=== PATIENT | female | born 1945 | race Caucasian/White ===

== ENCOUNTER → 2016-08-08 | Outpatient (CLI) | payer MEDICARE, OTHER ==
--- NOTE | 2016-08-09 07:57 | MM ---
Reason for exam: screening (asymptomatic). Last mammogram was performed 1 year ago. History: Patient is postmenopausal. Family history of premenopausal breast cancer in sister. Physical Findings: A clinical breast exam by your physician is recommended on an annual basis and results should be correlated with mammographic findings. MG 3D Screening Mammo W/Cad Bilateral CC and MLO view(s) were taken. Prior study comparison: July 26, 2015, bilateral MG 3d screening mammo w/cad. July 19, 2014, bilateral MG screening mammo w CAD. There are scattered fibroglandular densities. No significant changes when compared with prior studies. ASSESSMENT: Benign, BI-RAD 2 RECOMMENDATION: Routine screening mammogram of both breasts in 1 year.
== END | disposition home or self-care (01) ==
LOC: RADMAMWWP 08:21
PROVIDERS: ATTEND Family Medicine
DX: Z12.31 Encounter for screening mammogram for malignant neoplasm of breast (principal)
CPT/HCPCS: 77063; G0202

== ENCOUNTER → 2017-09-16 | Outpatient (CLI) | payer MEDICARE, OTHER ==
--- NOTE | 2017-09-17 14:53 | MM ---
Reason for exam: screening (asymptomatic). Last mammogram was performed 1 year and 1 month ago. History: Patient is postmenopausal. Family history of premenopausal breast cancer in sister. Physical Findings: A clinical breast exam by your physician is recommended on an annual basis and results should be correlated with mammographic findings. MG 3D Screening Mammo W/Cad Bilateral CC and MLO view(s) were taken. Prior study comparison: August 08, 2016, bilateral MG 3d screening mammo w/cad. July 26, 2015, bilateral MG 3d screening mammo w/cad. The breast tissue is heterogeneously dense. This may lower the sensitivity of mammography. There is chronic nodularity in the left breast. No significant changes when compared with prior studies. ASSESSMENT: Negative, BI-RAD 1 RECOMMENDATION: Routine screening mammogram of both breasts in 1 year.
== END | disposition home or self-care (01) ==
LOC: RADMAMWWP 09:30
PROVIDERS: ATTEND Family Medicine
DX: Z12.31 Encounter for screening mammogram for malignant neoplasm of breast (principal)
CPT/HCPCS: 77063; 77067

== ENCOUNTER → 2018-10-22 | Outpatient (CLI) | payer MEDICARE, OTHER ==
--- NOTE | 2018-10-23 08:45 | MM ---
Reason for exam: screening (asymptomatic). Last mammogram was performed 1 year and 1 month ago. History: Patient is postmenopausal. Family history of premenopausal breast cancer in sister. Physical Findings: A clinical breast exam by your physician is recommended on an annual basis and results should be correlated with mammographic findings. MG 3D Screening Mammo W/Cad Bilateral CC, MLO, and XCCL view(s) were taken. Prior study comparison: September 16, 2017, bilateral MG 3d screening mammo w/cad. August 08, 2016, bilateral MG 3d screening mammo w/cad. The breast tissue is heterogeneously dense. This may lower the sensitivity of mammography. There is no discrete abnormality. No significant changes when compared with prior studies. ASSESSMENT: Negative, BI-RAD 1 RECOMMENDATION: Routine screening mammogram of both breasts in 1 year.
== END | disposition home or self-care (01) ==
LOC: RADMAMWWP 11:51
PROVIDERS: ATTEND Family Medicine
DX: Z12.31 Encounter for screening mammogram for malignant neoplasm of breast (principal)
CPT/HCPCS: 77063; 77067

== ENCOUNTER → 2019-05-31 | Outpatient (CLI) | payer MEDICARE, OTHER ==
--- NOTE | 2019-05-31 13:08 | XR ---
EXAMINATION TYPE: XR chest 2V DATE OF EXAM: 05/31/2019 COMPARISON: NONE TECHNIQUE: PA and lateral views submitted. HISTORY: Cough FINDINGS: Hyperinflation suggests COPD and there is multilevel degenerative disc disease. Heart is prominent is atherosclerotic change of the aorta. There is a lobulated nodule measuring 2.9 cm in the right upper lobe suspicious for malignancy. No pleural effusion or pneumothorax. No overt failure. Biapical pleu ral thickening. IMPRESSION: 1. 2.9 cm right upper lobe lung mass suspicious for malignancy. Recommend CT scan of the chest. 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
== END | disposition home or self-care (01) ==
LOC: RADXRMAIN 12:24
PROVIDERS: ATTEND Nurse Practitioner Family
DX: R91.8 Other nonspecific abnormal finding of lung field (principal)
CPT/HCPCS: 71046

== ENCOUNTER → 2019-06-09 | Outpatient (CLI) | payer MEDICARE ==
[2019-06-09 15:24] LABS: African American GFR (CKD) >90 (>60 ml/min/1.73 sqM); Blood Urea Nitrogen 12 mg/dL (7-17); Non-African American GFR(CKD) >90 (>60 ml/min/1.73 sqM)
--- NOTE | 2019-06-09 20:46 | CT ---
EXAMINATION TYPE: CT chest wo/w con DATE OF EXAM: 06/09/2019 COMPARISON: Radiograph 05/31/2019 HISTORY: 73-year-old female R91.1, nodules TECHNIQUE: Contiguous axial scanning of the chest before and after the administration of 100 mL of Is ovue 300. Coronal/sagittal reconstructions performed. CT DLP: 757.3mGycm. Automatic exposure control utilized for a dose reduction. FINDINGS: Heart upper limits of normal in size without pericardial effusion. Three-vessel coronary artery calci fications are present. Ectatic ascending aorta 3.6 cm. Mild to moderate atherosclerotic arch calcifications with bovine conf iguration to the aortic arch. Scattered nonenlarged mediastinal lymph nodes are present. There is an enlarged 1.7 cm right hilar ly mph node. No additional thoracic lymphadenopathy by CT size criteria. Mild diffuse interstitial prominence. Focal patchy opacities opacity within the left upper lobe, axial image 21. Lobulated 2.7 cm nodule superior segment right lower lobe. Otherwise, no consolidation or pleural effusion. Visualized upper abdomen shows an indeterminate 1.2 cm right adrenal nodule. One of the measurements is 11 Hounsfield units. Findings may represent a benign adrenal adenoma. Tiny hilar splenule. Moderat e stool within the visualized colon. Prominent bile ducts status post cholecystectomy likely normal f or the patient. Bones: Mild to moderate multilevel degenerative disc disease throughout the thoracic spine. No osseou s destructive process. IMPRESSION: 1. Lobulated large 2.7 cm nodule superior segment right lower lobe. Lung cancer not excluded at this time. Consider PET/CT evaluation. An enlarged 1.7 cm right hilar lymph node can also be evaluated on the PET/CT. 2. Focal patch of infiltrate left upper lobe. Correlate for any infectious signs/symptoms. Short inte rval follow-up recommended to ensure clearance. 3. Background of mild diffuse interstitial prominence could represent chronic bronchitis, asthma, or sequela of chronic smoking. 4. Indeterminate 1.2 cm right adrenal nodule. Statistically, a benign adrenal adenoma is suspected. C onsider six-month follow-up adrenal mass protocol CT.
== END | disposition home or self-care (01) ==
LOC: RADCTMAIN 14:33
PROVIDERS: ATTEND Family Medicine
DX: R91.8 Other nonspecific abnormal finding of lung field (principal)
CPT/HCPCS: 82565; 84520; 71270; 36415; Q9967

== ENCOUNTER → 2019-06-25 | Outpatient (CLI) | payer MEDICARE ==
--- NOTE | 2019-06-29 14:49 | PE ---
Nuclear medicine PET/CT HISTORY: Lung nodule, initial Patient received 11.8 mCi F-18 FDG intravenously in delayed scanning was performed from the skull bas e to the mid thighs. Localization and attenuation correction CT scan was performed. Correlation to CT chest 06/09/2019 Neck and chest: The patient's lung mass in the right lower lobe shows associated hypermetabolic uptak e, SUV 9, right hilar uptake is also present and mild, SUV only 2.6. The nodule in the left lung also shows mild uptake, SUV 2.0. There is no pleural pericardial effusion. There are coronary artery calc ifications. Heart is enlarged. No supraclavicular or cervical adenopathy. No additional hypermetaboli c uptake. ABDOMEN: Nodular appearance present associated with the right adrenal gland which is low dense. No as sociated hypermetabolic uptake. No evident liver mass or ascites. No retroperitoneal adenopathy. Osseous structures show postop change in the lumbar spine. No associated hypermetabolic uptake. IMPRESSION: Nodules within the lung are suspicious for bronchogenic carcinoma, possible metastasis.
== END | disposition home or self-care (01) ==
LOC: RADPETMAIN 13:14
PROVIDERS: ATTEND Internal Medicine
DX: R91.1 Solitary pulmonary nodule (principal)
CPT/HCPCS: 78815; A9552

== ENCOUNTER → 2019-07-02 | Day surgery (SDC) | payer MEDICARE ==
[2019-06-30 14:53] VITALS: BMI 33.5
[~2019-07-02] MED LIST: ALBUTEROL NEB (CONC) 2.5 MG/0.5 ML INHALATION ONE; DEXAMETHASONE SOD PHOSPHATE 10 MG/ML 1 ML VIAL IV ONE; GLYCOPYRROLATE 0.2 MG/ML 2 ML VIAL ONE; LACTATED RINGERS 1,000 ML IV ONE; LACTATED RINGERS 1,000 ML IV SCH; LIDOCAINE 1% 20 ML VIAL (10MG/ML) FOR IV START INTRADERMA ONE; LIDOCAINE 1% INJ 10MG/ML (20 ML MDV) ONE; LIDOCAINE 2% (PF) 20 MG/ML 5 ML VIAL INHALATION ONE; LIDOCAINE VISCOUS 300 MG/15 ML CUP MUCOUS MEM ONE; MIDAZOLAM 2 MG/2 ML VIAL IV PRN; MIDAZOLAM 2 MG/2 ML VIAL ONE; NEOSTIGMINE 1 MG/ML 10 ML VIAL ONE; ONDANSETRON 4 MG/2 ML VIAL IVP ONE; PROPOFOL 10 MG/ML 20 ML VIAL IV ONE; ROCURONIUM BROMIDE 10 MG/ML 10 ML VIAL IV ONE; SODIUM CHLORIDE 0.9% 1,000 ML IV SCH; SUCCINYLCHOLINE CHLORIDE 100 MG/5 ML SYR IV ONE; fentaNYL (PF) 50 MCG/ML 2 ML AMP IV PRN; fentaNYL (PF) 50 MCG/ML 2 ML AMP ONE
[2019-07-02 11:00] LABS: Glucose,Whole Blood 108 mg/dL (75-99)
--- NOTE | 2019-07-02 12:16 | CT ---
EXAMINATION TYPE: CT Chest skyler Nicholson Protocol DATE OF EXAM: 07/02/2019 COMPARISON: PET/CT 06/25/2019 HISTORY: Bronchial navigation. CT DLP: 579 mGycm Automated exposure control for dose reduction was used. Chest CT performed using departmental protoco l FINDINGS: Patient's right upper lobe lung mass is again noted, nodular appearance also present left upper lobe as on prior CT. Coronary artery calcifications are present. No pleural pericardial effusion. No evide nt hilar, mediastinal, axillary adenopathy. Postop changes are noted to the lumbar spine. No endobronchial lesion. Noncontrast exam. Low dense ri ght adrenal nodule likely represents adenoma measuring 18 mm. IMPRESSION: CT PERFORMED FOR PROCEDURE PLANNING PURPOSES. SUSPICIOUS LUNG MASS RIGHT UPPER LOBE MEASURES 2.6 CM
[2019-07-02 14:05] VITALS: TEMP 97.8
[2019-07-02 14:14] LABS: Glucose,Whole Blood 171 mg/dL (75-99)
--- NOTE | 2019-07-02 14:31 | XR ---
EXAMINATION TYPE: XR chest 1V portable DATE OF EXAM: 07/02/2019 COMPARISON: Prior chest x-ray 05/31/2019 HISTORY: Status post right lung biopsies TECHNIQUE: Single frontal view of the chest is obtained. FINDINGS: The heart is enlarged. Aorta is dense. Interstitium is increased bilaterally. Nodular appe arance of the right lung is again noted. There is no evident pneumothorax or pleural effusion. Lung v olumes are low. IMPRESSION: No evident complication status post lung biopsy. Expiratory exam, follow-up as indicated . Possible cardiomegaly, difficult to exclude interstitial edema.
[2019-07-02 14:59] VITALS: BP 143/74; PULSE 75; RESP 18
--- NOTE | 2019-07-02 20:18 | PCN ---
PROCEDURE NOTE OPERATIVE REPORT: Navigational bronchoscopy, multiple transbronchial biopsy of the right lower lobe mass, fine needle aspirations using navigational bronchoscopy technique of a right lower lobe mass. Brushings of the right lower lobe mass, washings, and lavage of the superior segment of the right lower lobe. PREOPERATIVE DIAGNOSIS: Right lower lobe mass suspicious for bronchogenic carcinoma. POSTOPERATIVE DIAGNOSIS: Right lower lobe mass suspicious for bronchogenic carcinoma. ANESTHESIA: General anesthesia, the patient was intubated and mechanically ventilated. PROCEDURE DESCRIPTION: The patient was prepared according the bronchoscopy protocol. The patient had Veran CT of the chest done earlier today, sensors were placed on the chest. The Veran CT of the chest was reviewed, mapping of the lung was done, then the patient was brought into the operating room, the CT was uploaded to the system/Veran system. After general anesthetic and the patient was intubated by GASTROENTEROLOGY PHYSICIAN, the bronchoscope was inserted into the endotracheal tube, and a thorough examination was done of the right upper lobe, right middle lobe, right lower lobe, left upper lobe lingula and left lower lobe. There was no evidence of any endobronchial tumors or lesions in the airways. Then using the Veran navigational system, the right lower lobe mass was noted to be in the peripheral superior segment of the right lower lobe, and multiple transbronchial biopsies were done again using navigation. After the biopsy, a fine-needle/Davila needle aspiration was done of the right lower lobe mass. Multiple passes were made. Then Veran brushings were also done and brushings of the right lower lobe mass were done using navigational technique. Then, washing and lavage of the superior segment of the right lower lobe was also done. Procedure was well tolerated, and there was no evidence of any immediate complications. Blood loss was extremely minimal. Chest x- ray was ordered postoperatively. updated on her condition. MMODL / IJN: [id number] /
== END | disposition home or self-care (01) ==
LOC: ORWHC2ENDO 10:19
PROVIDERS: ATTEND Internal Medicine
DX: R91.1 Solitary pulmonary nodule (principal); I10 Essential (primary) hypertension; I48.20 Chronic atrial fibrillation, unspecified; E11.9 Type 2 diabetes mellitus without complications; E78.00 Pure hypercholesterolemia, unspecified; D35.00 Benign neoplasm of unspecified adrenal gland; E78.1 Pure hyperglyceridemia; F17.210 Nicotine dependence, cigarettes, uncomplicated; Z79.01 Long term (current) use of anticoagulants; Z79.84 Long term (current) use of oral hypoglycemic drugs; Z79.899 Other long term (current) drug therapy; Z98.890 Other specified postprocedural states; Z88.1 Allergy status to other antibiotic agents; Z88.2 Allergy status to sulfonamides; Z88.5 Allergy status to narcotic agent; Z80.8 Family history of malignant neoplasm of other organs or systems; Z82.49 Family history of ischemic heart disease and other diseases of the circulatory system; Z83.3 Family history of diabetes mellitus
CPT/HCPCS: 88104; 88108; 88305; 88173; 71045; 71250; 31628; 31629; 31623; 31624; 31627; J2250; J1100; J2710; J2405; J2001; J3010; J0330; J2704

== ENCOUNTER 2019-07-19 08:44 | Day surgery (SDC) | payer MEDICARE ==
[2019-07-19] MEDS ORDERED: ALPRAZolam 0.25 MG TAB PO ONE (09:02)
[2019-07-19 09:12] VITALS: TEMP 98
[2019-07-19 09:16] LABS: Mean Platelet Volume 7.8; Platelet Count 190 k/uL (150-450)
[2019-07-19 09:33] LABS: Prothrombin Time 10.7 sec (9.0-12.0)
[2019-07-19 11:05] VITALS: BP 163/72; PULSE 71; RESP 18
--- NOTE | 2019-07-19 12:05 | CT ---
EXAMINATION TYPE: CT discontinued procedure DATE OF EXAM: 07/19/2019 COMPARISON: None HISTORY: Right lung biopsy-discontinued procedure CT DLP: 283 mGycm Automated exposure control for dose reduction was used. FINDINGS: The patient was hypertensive and the procedure was discontinued. Patient was [facility] high blood pressure so the biopsy could be rescheduled. IMPRESSION: DISCONTINUED BIOPSY DUE TO HYPERTENSION
== END 2019-07-19 11:15 | disposition home or self-care (01) ==
LOC: RADPROMAIN 08:44
PROVIDERS: ATTEND Internal Medicine
DX: R91.8 Other nonspecific abnormal finding of lung field (principal); Z53.09 Procedure and treatment not carried out because of other contraindication; I10 Essential (primary) hypertension; Z88.1 Allergy status to other antibiotic agents; Z88.5 Allergy status to narcotic agent; Z88.2 Allergy status to sulfonamides; Z79.01 Long term (current) use of anticoagulants
CPT/HCPCS: 36415; 76380; 85049; 85610

== ENCOUNTER 2019-07-28 08:32 | Day surgery (SDC) | payer MEDICARE ==
[2019-07-28 09:03] LABS: Mean Platelet Volume 7.8; Platelet Count 248 k/uL (150-450)
[2019-07-28 09:08] LABS: INR 1.1 (<1.2)
[2019-07-28 09:08] LABS: Glucose,Whole Blood 161 mg/dL (75-99)
--- NOTE | 2019-07-28 10:39 | CT ---
EXAMINATION TYPE: CT biopsy lung RT DATE OF EXAM: 07/28/2019 HISTORY: Right lower lobe lung mass COMPARISON: PET/CT 06/25/2019 Maximal barrier technique was utilized, hand hygiene obtained with soap and water. The skin overlyin g a suitable path to the lesion was localized using CT and the overlying skin was prepped and draped. Lidocaine used for local anesthesia. A skin violetta made with a scalpel. Using CT guidance, access w as gained to the lesion with a 19-gauge guide and a coaxial placement of a 20-gauge core needle. Cor e specimen submitted to cytology. 2 pass(es) performed in all. Following the procedure no immediate complications other than some local hemorrhage. The patient is discharged in stable condition. He mostasis achieved. Post procedure chest x-ray pending. IMPRESSION: SUCCESSFUL CT GUIDED CORE BIOPSY right lower lobe lung mass. PATHOLOGY PENDING. THIS PROCEDURE WAS PERFORMED BY THE UNDERSIGNED.
--- NOTE | 2019-07-28 10:44 | XR ---
EXAMINATION TYPE: XR chest 1V portable DATE OF EXAM: 07/28/2019 COMPARISON: Prior chest x-ray dated 07/02/2019 HISTORY: Status post lung biopsy, right lower lobe lung mass TECHNIQUE: Single frontal view of the chest is obtained. FINDINGS: There is no evident pneumothorax or pleural effusion. Right lower lobe lung mass is again noted. Heart size is stable. Aorta is dense. Postop changes noted in the lumbar spine. IMPRESSION: No evident complication status post right lower lobe lung biopsy.
[2019-07-28 11:01] VITALS: TEMP 98.5
[2019-07-28 12:27] VITALS: RESP 16
[2019-07-28 12:31] VITALS: BP 118/57; PULSE 78
--- NOTE | 2019-07-28 12:37 | XR ---
EXAMINATION TYPE: XR chest 1V portable DATE OF EXAM: 07/28/2019 COMPARISON: Earlier exam same date INDICATION: Post bronchoscopy TECHNIQUE: Single frontal view of the chest is obtained. FINDINGS: The heart size is normal. The pulmonary vasculature is normal. Right perihilar nodule remains present. No pneumothorax is evident post bronchoscopy. IMPRESSION: 1. No pneumothorax post bronchoscopy. 2. Stable right perihilar nodule
== END 2019-07-28 12:48 | disposition home or self-care (01) ==
LOC: RADPROMAIN 08:32 → 1SOBS 10:30 → RADPROMAIN 12:48
PROVIDERS: ATTEND Internal Medicine
DX: C34.91 Malignant neoplasm of unspecified part of right bronchus or lung (principal); Z88.1 Allergy status to other antibiotic agents; Z88.5 Allergy status to narcotic agent; Z88.2 Allergy status to sulfonamides
CPT/HCPCS: 36415; 71045; 77012; 85049; 85610; 88305; 88341; 88342

== ENCOUNTER → 2019-08-07 | Outpatient (CLI) | payer MEDICARE ==
--- NOTE | 2019-08-07 11:25 | MR ---
EXAMINATION TYPE: MR brain wo/w con DATE OF EXAM: 08/07/2019 COMPARISON: NONE HISTORY: Lung CA, initial staging study rule out metastatic disease. TECHNIQUE: Multiplanar, multisequence images of the brain and brainstem is performed without and with IV contras t, utilizing 8.5 mL intravenous Gadavist . FINDINGS: Exam noted suboptimal as postcontrast T1-weighted imaging not performed. Diffusion weighted images demonstrate no evidence of a recent infarct or other diffusion abnormality. There is diffuse ventricular and sulcal prominence. Multifocal areas of T2 hyperintensity is seen throughout the supe rficial deep and periventricular white matter.. Midline structures demonstrate normal morphology. The craniocervical junction appears within normal limits. Post contrast images demonstrate no abnormal enhancement. The dural venous sinuses appear pa tent. The visualized sinuses are clear and the globes are intact. Nasal septum deviated to right of m idline. IMPRESSION: There is mild to moderate diffuse cerebral atrophy and moderate to advanced chronic small vessel ischemic change but no suspicious enhancing intraparenchymal masses to suggest metastatic dis ease to the brain.
== END | disposition home or self-care (01) ==
LOC: RADMRIMAIN 10:30
PROVIDERS: ATTEND Radiology Radiation Oncology
DX: G31.9 Degenerative disease of nervous system, unspecified (principal); I67.82 Cerebral ischemia; C34.31 Malignant neoplasm of lower lobe, right bronchus or lung
CPT/HCPCS: 70553; A9585

== ENCOUNTER 2019-09-09 20:50 | Emergency (ER) | payer MEDICARE ==
[2019-09-09 21:27] LABS: Basophils % (A) 1 %; Eosinophils # (A) 0.1 k/uL (0-0.7); Eosinophils % (A) 2 %; HCT 39.8 % (34.0-46.0); HGB 12.8 gm/dL (11.4-16.0); Lymphocytes # (A) 1.8 k/uL (1.0-4.8); Lymphocytes % (A) 28 %; MCH 27.4 pg (25.0-35.0); MCHC 32.2 g/dL (31.0-37.0); MCV 84.9 fL (80.0-100.0); Mean Platelet Volume 8.4; Monocytes # (A) 0.4 k/uL (0-1.0); Monocytes % (A) 6 %; Neutrophils # (A) 3.8 k/uL (1.3-7.7); Neutrophils % (A) 61 %; Platelet Count 152 k/uL (150-450); RBC 4.69 m/uL (3.80-5.40); RDW 13.5 % (11.5-15.5); WBC 6.3 k/uL (3.8-10.6)
--- NOTE | 2019-09-09 21:30 | ED ---
General Adult HPI - General Chief complaint: Chest Pain Stated complaint: Chest Pain Time Seen by Provider: 09/09/19 21:03 Source: patient Mode of arrival: wheelchair Limitations: no limitations - History of Present Illness Initial comments: Dictation was produced using jslyhl dictation software. please excuse any grammatical, word or spelling errors. This patient was cared for during a federal and state declared state of emergency secondary to Covid 19 Chief Complaint: 73-year-old female with past medical history of atrial fibrill ation presents with chest pain. History of Present Illness: 73-year-old who was presents with substernal chest pain. Patient states is sharp with dull characteristics. Denies any radiation to the back. No radiation to the shoulders or jaw. Patient denies any associated diaphoresis. She denies any history of coronary artery disease. Patient states that her symptoms feel like they're improved whenever she ambulates. She also states that her symptoms are reproducible with movement. The ROS documented in this emergency department record has been reviewed and confirmed by me. Those systems with pertinent positive or negative responses have been documented in the HPI. All other systems are other negative and/or noncontributory. PHYSICAL EXAM: General Impression: Alert and oriented x3, not in acute distress HEENT: Normocephalic atraumatic, extra-ocular movements intact, pupils equal and reactive to light bilaterally, mucous membranes moist. Cardiovascular: Heart regular rate and rhythm, S1&S2 audible, no murmurs, rubs or gallops Chest: Able to complete full sentences, no retractions, no tachypnea Abdomen: Bowel sounds present, abdomen soft, non-tender, non-distended, no orga nomegaly Musculoskeletal: Pulses present and equal in all extremities, no peripheral edema Motor: no focal deficits noted Neurological: CN II-XII grossly intact, no focal motor or sensory deficits noted Skin: Intact with no visualized rashes Psych: Normal affect and mood ED course: 73-year-old female with clinical presentation consistent with atypical chest pain with typical features. Signs upon arrival are within acceptable limits. Laboratory evaluation obtained. CBC unremarkable. Coag panel shows INR 2.2 which is therapeutic. Metabolic panel is negative. Troponins negative. Chest x-ray shows lung nodule. Results were discussed with patient. Chin symptoms are very atypical. No clinical suspicion for acute coronary syndrome at this time. Patient has nodule in her left mid lung zone that she was notified about. Patient states she has history of lung nodules. She has been having this monitored by outpatient doctors. Patient is well-appearing at bedside. Patient will be discharged. EKG interpretation: Ventricular rate 86, normal sinus rhythm, MO interval 190, QRS 94, QTC 469. No MO prolongation, no QTC prolongation, no ST or T-wave changes noted. No old EKG for comparison Overall, this EKG is unremarkable - Related Data Home Medications Medication Instructions Recorded Confirmed Fenofibrate 160 mg PO DAILY 06/30/19 07/28/19 Lisinopril [Zestril] 20 mg PO DAILY 06/30/19 07/28/19 Propafenone [Rythmol] 150 mg PO TID 06/30/19 07/28/19 Warfarin [Coumadin] 3.75 mg PO SUTUTH 06/30/19 07/28/19 Warfarin [Coumadin] 7.5 mg PO MOWEFRSA 06/30/19 07/28/19 amLODIPine [Norvasc] 5 mg PO DAILY 06/30/19 07/28/19 metFORMIN HCL [Glucophage] 500 mg PO PC-SUPPER 06/30/19 07/28/19 Simvastatin [Zocor] 20 mg PO HS 07/13/19 07/28/19 Allergies Allergy/AdvReac Type Severity Reaction Status Date / Time morphine AdvReac Severe Nausea & Verified 09/09/19 20:58 Vomiting cefuroxime [From Ceftin] AdvReac Unknown Nausea Verified 09/09/19 20:58 Sulfa (Sulfonamide AdvReac Unknown Nausea, Verified 09/09/19 20:58 Antibiotics) lightheaded Review of Systems ROS Statement: Those systems with pertinent positive or pertinent negative responses have been documented in the HPI. ROS Other: All systems not noted in ROS Statement are negative. Past Medical History Past Medical History: Atrial Fibrillation, Diabetes Mellitus, Hypertension Additional Past Medical History / Comment(s): mass left lung Jul 2019, cough, occasional phlegm. History of Any Multi-Drug Resistant Organisms: None Reported Past Surgical History: Back Surgery, Hysterectomy Additional Past Surgical History / Comment(s): Exploratory surgery, plan for lung biopsy Jul 19 2019 Past Anesthesia/Blood Transfusion Reactions: No Reported Reaction Past Psychological History: No Psychological Hx Reported Smoking Status: Current every day smoker Past Alcohol Use History: Occasional Past Drug Use History: None Reported - Past Family History Mother Family Medical History: Cancer Additional Family Medical History / Comment(s): BRAIN CANCER Sister(s) Family Medical History: Cancer Additional Family Medical History / Comment(s): BREAST AND PANCREATIC CANCER General Exam Limitations: no limitations Course Vital Signs 09/09/19 09/09/19 09/09/19 20:56 21:27 21:38 Temperature 98.2 F Pulse Rate 66 Respiratory 18 20 18 Rate Blood Pressure 162/72 O2 Sat by Pulse 97 Oximetry Medical Decision Making - Lab Data Result diagrams: 09/09/19 21:05 09/09/19 21:05 Lab Results 09/09/19 09/09/19 09/09/19 Range/Units 21:05 21:05 21:05 WBC 6.3 (3.8-10.6) k/uL RBC 4.69 (3.80-5.40) m/uL Hgb 12.8 (11.4-16.0) gm/dL Hct 39.8 (34.0-46.0) % MCV 84.9 (80.0-100.0) fL MCH 27.4 (25.0-35.0) pg MCHC 32.2 (31.0-37.0) g/dL RDW 13.5 (11.5-15.5) % Plt Count 152 (150-450) k/uL Neutrophils % 61 % Lymphocytes % 28 % Monocytes % 6 % Eosinophils % 2 % Basophils % 1 % Neutrophils # 3.8 (1.3-7.7) k/uL Lymphocytes # 1.8 (1.0-4.8) k/uL Monocytes # 0.4 (0-1.0) k/uL Eosinophils # 0.1 (0-0.7) k/uL Basophils # 0.0 (0-0.2) k/uL PT 21.6 H (9.0-12.0) sec INR 2.2 H (<1.2) APTT 29.9 (22.0-30.0) sec Sodium 137 (137-145) mmol/L Potassium 4.3 (3.5-5.1) mmol/L Chloride 101 (98-107) mmol/L Carbon Dioxide 26 (22-30) mmol/L Anion Gap 10 mmol/L BUN 15 (7-17) mg/dL Creatinine 0.84 (0.52-1.04) mg/dL Est GFR (CKD-EPI)AfAm 80 (>60 ml/min/1.73 sqM) Est GFR (CKD-EPI)NonAf 70 (>60 ml/min/1.73 sqM) Glucose 106 H (74-99) mg/dL Calcium 9.6 (8.4-10.2) mg/dL Magnesium 2.0 (1.6-2.3) mg/dL Total Bilirubin 0.2 (0.2-1.3) mg/dL AST 18 (14-36) U/L ALT 8 (4-34) U/L Alkaline Phosphatase 86 (38-126) U/L Troponin I (0.000-0.034) ng/mL Total Protein 7.2 (6.3-8.2) g/dL Albumin 4.5 (3.5-5.0) g/dL 09/09/19 Range/Units 21:05 WBC (3.8-10.6) k/uL RBC (3.80-5.40) m/uL Hgb (11.4-16.0) gm/dL Hct (34.0-46.0) % MCV (80.0-100.0) fL MCH (25.0-35.0) pg MCHC (31.0-37.0) g/dL RDW (11.5-15.5) % Plt Count (150-450) k/uL Neutrophils % % Lymphocytes % % Monocytes % % Eosinophils % % Basophils % % Neutrophils # (1.3-7.7) k/uL Lymphocytes # (1.0-4.8) k/uL Monocytes # (0-1.0) k/uL Eosinophils # (0-0.7) k/uL Basophils # (0-0.2) k/uL PT (9.0-12.0) sec INR (<1.2) APTT (22.0-30.0) sec Sodium (137-145) mmol/L Potassium (3.5-5.1) mmol/L Chloride (98-107) mmol/L Carbon Dioxide (22-30) mmol/L Anion Gap mmol/L BUN (7-17) mg/dL Creatinine (0.52-1.04) mg/dL Est GFR (CKD-EPI)AfAm (>60 ml/min/1.73 sqM) Est GFR (CKD-EPI)NonAf (>60 ml/min/1.73 sqM) Glucose (74-99) mg/dL Calcium (8.4-10.2) mg/dL Magnesium (1.6-2.3) mg/dL Total Bilirubin (0.2-1.3) mg/dL AST (14-36) U/L ALT (4-34) U/L Alkaline Phosphatase (38-126) U/L Troponin I <0.012 (0.000-0.034) ng/mL Total Protein (6.3-8.2) g/dL Albumin (3.5-5.0) g/dL Disposition Clinical Impression: Chest pain Disposition: HOME SELF-CARE Condition: Good Instructions (If sedation given, give patient instructions): Chest Pain (ED) Is patient prescribed a controlled substance at d/c from ED?: No Referrals: Francisco Ramirez DO [Primary Care Provider] - 1-2 days Time of Disposition: 22:13
[2019-09-09 21:36] LABS: Albumin 4.5 g/dL (3.5-5.0); Calcium 9.6 mg/dL (8.4-10.2); Potassium 4.3 mmol/L (3.5-5.1); Total Bilirubin 0.2 mg/dL (0.2-1.3); Total Protein 7.2 g/dL (6.3-8.2)
[2019-09-09] MEDS ORDERED: ASPIRIN 81 MG PO STA (21:38)
[2019-09-09 21:39] LABS: INR 2.2 (<1.2); Partial Thromboplastin Time 29.9 sec (22.0-30.0); Prothrombin Time 21.6 sec (9.0-12.0)
[2019-09-09 21:41] VITALS: RESP 18
--- NOTE | 2019-09-09 21:51 | XR ---
EXAMINATION TYPE: XR chest 2V DATE OF EXAM: 09/09/2019 COMPARISON: 07/28/2019 HISTORY: Shortness of breath TECHNIQUE: Frontal and lateral views of the chest are obtained. FINDINGS: Scattered senescent parenchymal changes noted. Hyperinflation compatible with COPD. No evidence for infiltrate. No evidence for atelectasis. Right perihilar mass is noted measuring 2.9 cm greatest dimension. Additional nodular density left mid lung zone measuring 1.8 cm. Heart size is stable. Mediastinal structures are stable and grossly unremarkable. No evidence for hilar prominence. Degenerative changes dorsal spine. IMPRESSION: 1. No evidence for acute pulmonary disease. No change in right perihilar mass. New Nodule left mid marie ng zone.
[2019-09-09 22:41] VITALS: BP 154/78; PULSE 72; TEMP 97.7
== END 2019-09-09 22:30 | disposition home or self-care (01) ==
LOC: EC 20:50
DX: R07.89 Other chest pain (principal); R91.1 Solitary pulmonary nodule; I48.91 Unspecified atrial fibrillation; E11.9 Type 2 diabetes mellitus without complications; I10 Essential (primary) hypertension; F17.200 Nicotine dependence, unspecified, uncomplicated; Z79.01 Long term (current) use of anticoagulants; Z79.84 Long term (current) use of oral hypoglycemic drugs; Z79.899 Other long term (current) drug therapy; Z88.1 Allergy status to other antibiotic agents; Z88.2 Allergy status to sulfonamides; Z88.5 Allergy status to narcotic agent
CPT/HCPCS: 36415; 71046; 80053; 83735; 84484; 85025; 85610; 85730; 93005; 99285

== ENCOUNTER → 2019-10-08 | Outpatient (CLI) | payer MEDICARE ==
[2019-10-08 09:44] LABS: African American GFR (CKD) >90 (>60 ml/min/1.73 sqM); Blood Urea Nitrogen 10 mg/dL (7-17); Non-African American GFR(CKD) 89 (>60 ml/min/1.73 sqM)
--- NOTE | 2019-10-08 10:36 | CT ---
EXAMINATION TYPE: CT chest w con DATE OF EXAM: 10/08/2019 COMPARISON: CT chest June 09, 2019. PET/CT June 25, 2019. HISTORY: follow up lung cancer Diagnosed in June or July this year completed chemotherapy in [place] pr[place]. CT DLP: 375 mGycm. Automated Exposure Control for Dose Reduction was Utilized. TECHNIQUE: CT scan of the thorax is performed following with IV Contrast, patient injected with 100 mL of Isovue 300. FINDINGS: LUNGS: The superior segment left lower lobe redemonstrates a lobulated irregular hypoechoic mass or n eoplasm diminished in size and prominence from prior CT and PET/CT, difficult to accurately measure. The largest superior anterior nodule component measures 1.3 x 0.9 cm axial image 26. Craniocaudal john gth is 2.1 cm sagittal image 28 current study. No new suspicious right-sided nodules or masses. There is however suspicious increased size in the spiculated nodule or nodular consolidation left upper lo be also difficult to accurately measure due to irregularity measuring 1.9 x 1.4 cm-image 22 but defin itive progression from prior CT and PET/CT coronal image 51 and sagittal image 83 for reference. Slig ht hypermetabolic uptake on PET/CT noted. Stable 4 mm posterior superior left lower lobe nodule axial image 30 corresponding to prior study coronal image 71. No new nodules. No pleural effusion or pneum othorax seen bilaterally. MEDIASTINUM: There are no new greater than 1 cm hilar or mediastinal lymph nodes. Stable prominent bu t subcentimeter right hilar lymph node axial image 26 corresponding to coronal image 54. No pericard ial effusion is seen. Cardiac size stable and upper limits of normal. Moderate to severe three-vesse l coronary artery calcification is redemonstrated. A few tiny nodules in thyroid axial image 4 redemo nstrated. OTHER: [id number] multilevel spurring in thoracic spine again seen. IMPRESSION: Overall mixed response thought present. Improvement or diminished size in the superior se gment right lower lobe nodule or neoplasm. Progression in the suspicious left upper lobe nodule or no dular consolidation.
== END | disposition home or self-care (01) ==
LOC: RADCTMAIN 08:58
PROVIDERS: ATTEND Internal Medicine Hematology & Oncology
DX: C34.91 Malignant neoplasm of unspecified part of right bronchus or lung (principal)
CPT/HCPCS: 82565; 84520; 71260; 36415; Q9967

== ENCOUNTER → 2019-12-31 | Outpatient (CLI) | payer MEDICARE ==
--- NOTE | 2020-01-03 10:31 | MM ---
Reason for exam: screening (asymptomatic). Last mammogram was performed 1 year and 2 months ago. History: Patient is postmenopausal and history of other cancer. Family history of premenopausal breast cancer in sister. Physical Findings: A clinical breast exam by your physician is recommended on an annual basis and results should be correlated with mammographic findings. MG 3D Screening Mammo W/Cad Bilateral CC and MLO view(s) were taken. Prior study comparison: October 22, 2018, bilateral MG 3d screening mammo w/cad. September 16, 2017, bilateral MG 3d screening mammo w/cad. The breast tissue is heterogeneously dense. This may lower the sensitivity of mammography. There is no discrete abnormality. No significant changes when compared with prior studies. ASSESSMENT: Negative, BI-RAD 1 RECOMMENDATION: Routine screening mammogram of both breasts in 1 year.
== END | disposition home or self-care (01) ==
LOC: RADMAMWWP 13:27
PROVIDERS: ATTEND Family Medicine
DX: Z12.31 Encounter for screening mammogram for malignant neoplasm of breast (principal)
CPT/HCPCS: 77063; 77067

== ENCOUNTER → 2020-01-21 | Outpatient (CLI) | payer MEDICARE ==
--- NOTE | 2020-01-21 16:16 | MR ---
EXAMINATION TYPE: MR brain wo/w con DATE OF EXAM: 01/21/2020 4:00 PM COMPARISON: 08/07/2019 HISTORY: F/u, history lung ca CONTRAST: Patient received 8.5 mL intravenous Gadavist gadolinium contrast. Multiplanar and multispin-echo imaging of the brain was performed . Pre and post contrast enhanced i mages are obtained. The ventricles, basal cisterns and sulci overlying the cerebral convexities are moderately enlarged. There is evidence of moderate periventricular white matter ischemic demyelination. Remote deep white matter insults are also noted. No acute edema is seen on diffusion weighted imaging. There is no evidence for midline shift or mass effect. Acute intracranial hemorrhage or extra-axial collection is not evident. No enhancing lesions are seen. The paranasal sinuses and mastoid air cells are well-aerated. IMPRESSION: Age-related atrophic and chronic small vessel ischemic change. No acute intracranial process at this time. No enhancing lesions are seen.
== END | disposition home or self-care (01) ==
LOC: RADMRIMAIN 15:15
PROVIDERS: ATTEND Radiology Radiation Oncology
DX: C34.31 Malignant neoplasm of lower lobe, right bronchus or lung (principal); C77.9 Secondary and unspecified malignant neoplasm of lymph node, unspecified; G31.1 Senile degeneration of brain, not elsewhere classified; I67.82 Cerebral ischemia; Z92.21 Personal history of antineoplastic chemotherapy
CPT/HCPCS: 70553; A9585

== ENCOUNTER → 2020-02-22 | Outpatient (CLI) | payer MEDICARE ==
[2020-02-22 11:27] LABS: African American GFR (CKD) >90 (>60 ml/min/1.73 sqM); Blood Urea Nitrogen 11 mg/dL (7-17); Non-African American GFR(CKD) 87 (>60 ml/min/1.73 sqM)
--- NOTE | 2020-02-22 13:59 | CT ---
EXAMINATION TYPE: CT ChestAbdPelvis w con DATE OF EXAM: 02/22/2020 COMPARISON: 10/08/2019, PET scan 06/25/2019 HISTORY: Lung cancer CT DLP: 1543 mGycm Automated exposure control for dose reduction was used. CONTRAST: CT scan of the chest, abdomen and pelvis is performed with Oral Contrast and with IV Contrast, patien t injected with 100 mL of Isovue 300. FINDINGS: LUNGS: Hyperinflation suggests COPD. There is interval reduction in size of the mass within the superior segment of the right lower lobe w hich previously measured 1.2 x 0.9 cm and now measures 0.9 x 0.9 cm. However, within the left upper lobe irregular area of density measuring 1.9 x 1.4 cm on the prior exa m is increased in size now measuring 5.1 x 2.8 cm extends to the hilum. There are no new areas of nodular density. No pleural effusion, pneumothorax or focal pneumonia. MEDIASTINUM: The heart is prominent and there is coronary artery calcification with atherosclerotic c hange aorta. No evidence of aneurysm. No evidence of hilar lymphadenopathy. Abnormal soft tissue in the suprahilar region on the left measu res a short axis of 1.5 cm and was not seen with certainty on the prior exam. This likely represents extension of the left upper lobe mass noted above for the left hilum. It does appear to be a subcarin al lymph node best noted on axial image 29 with a short axis measurement of 1 cm. There is a prevascu lar lymph node measuring 1 cm in short axis and previously measured less than 5 mm. Mild cardiomegaly. No sizable pericardial effusion. LIVER/GB: There is prominent in size measuring 17 cm, but no evidence of focal mass. Gallbladder is n ot seen correlate for previous cholecystectomy. There is intra and extrahepatic biliary ductal dilati on which is stable from prior exam. PANCREAS: No significant abnormality is seen. SPLEEN: No significant abnormality is seen. ADRENALS: Right adrenal nodule is stable from prior exam as well as prior PET/CT measuring approximat laurence 1 cm.. KIDNEYS: Within the right kidney is a 1.5 cm lesion which measures 25 Hounsfield units. This does not meet the criteria of a simple cyst. However, this was present on the previous PET scan which demonst rated no hypermetabolic uptake. Therefore likely is employment program representative benign proteinaceous or complicate d cyst and could be correlated with ultrasound. BOWEL: No significant abnormality is seen. LYMPH NODES: No greater than 1 cm abdominal or pelvic lymph nodes are appreciated. OSSEOUS STRUCTURES: Postsurgical change with hypertrophic and degenerative changes. Faint sclerotic d ensity involving the left iliac bone measuring 7 mm is present on the previous PET scan stable. 2 sma ll to characterize. Likely benign given the absence of uptake. Although, it only measures 7 mm and co uld be below the sensitivity PET scan. Finding nonspecific. Bilateral sacroiliitis noted. OTHER: Aorta of normal caliber with atherosclerotic changes. IMPRESSION: 1. Interval response to therapy with reduction in size of a superior segment right lower lobe nodule now measuring 0.9 x 0.9 cm and previously measuring 1.2 x 0.9 cm. 2. There is interval increase in size of the irregular area of consolidation or mass extending from t he left hilum into the left upper lobe previously measuring 1.9 x 1.4 cm and now measuring 5.1 x 2.8 cm. There also now appears to be subcarinal and prevascular lymph node which is measuring slightly gr eater than 1 cm in short axis and previously measured less than 1 cm. 3. No evidence of intra-abdominal adenopathy. Right adrenal nodule is stable the prior PET scan where demonstrated no hypermetabolic uptake. 4. Indeterminate right renal lesion which measures 25 Hounsfield units which does not measure Hounsfi eld unit measurement compatible with simple cyst. However, finding appears stable from the previous P ET scan where there is no hypermetabolic uptake identified.
== END | disposition home or self-care (01) ==
LOC: RADCTMAIN 10:38
PROVIDERS: ATTEND Internal Medicine Hematology & Oncology
DX: E27.8 Other specified disorders of adrenal gland (principal); C34.91 Malignant neoplasm of unspecified part of right bronchus or lung; Z88.1 Allergy status to other antibiotic agents; Z88.2 Allergy status to sulfonamides; Z88.5 Allergy status to narcotic agent
CPT/HCPCS: 82565; 84520; 71260; 74177; 36415; Q9967 ×2

== ENCOUNTER → 2020-03-10 | Outpatient (CLI) | payer MEDICARE ==
--- NOTE | 2020-03-10 15:28 | PE ---
EXAMINATION TYPE: PET CT fusion skull to thigh DATE OF EXAM: 03/10/2020 COMPARISON: Prior PET/CT June 25, 2019. Most recent CT February 22, 2020 and older CTs. HISTORY: Right-sided lung cancer originally diagnosed in August 2019 completed chemotherapy and radi ation treatment December 2019. TECHNIQUE: Following the intravenous administration of 13.06 mCi of F-18 FDG, whole body images are performed from the skull base to the midthigh. Images are reviewed on the computer in the coronal, a xial, and sagittal planes. Reconstructed rotating images are created on independent workstation and reviewed on the computer. A localization and attenuation correction CT is performed in conjunction with the PET scan. SCAN: Subsequent Scan FINDINGS: SKULL BASE AND NECK: No new areas of suspicious hypermetabolic uptake.2 CHEST, MEDIASTINUM, AND HILAR REGION: Background moderate underlying emphysematous change redemonstra mela. Area of original neoplasm superior aspect right lower lobe now measures roughly 11 x 10 mm axial image 88 and is currently ametabolic. There are however 2 adjacent hypermetabolic areas left suprahilar region, there is central 2.0 x 1.7 cm area axis image 84 with max SUV of 16.24. There is more peripheral irregular 2.6 x 2.0 cm area serafin e image with max SUV of 8.5 to. There is adjacent peripheral atelectasis extending anteriorly and inf eriorly. There is abnormal hypermetabolic 2.9 x 1.4 cm subcarinal lymph node axial image 90 with max SUV of 9. 56. There is abnormal hypermetabolic prevascular lymph node or 2 adjacent lymph nodes measuring confl uent 2.2 x 1.4 cm axial image 78, max SUV is 8.25. ABDOMEN AND PELVIS: Hypermetabolic focus left obturator internus muscle adjacent to bladder axial ramos ge 220 may be misregistration as no definitive CT correlate. Similar unusual hypermetabolic area post erior lateral right gluteal region without definitive CT correlate. Cannot exclude new metastatic foc i. Would be extremely unusual locations. No additional areas of abnormal hypermetabolic uptake. No adrenal masses. Normal excretion. Suspect roughly 2.0 cm simple thin-walled cyst medially right kidney at area of concern on recent CT. OSSEOUS STRUCTURES: No new areas of abnormal hypermetabolic uptake. OTHER CT: Moderate calcified plaque left carotid bulb redemonstrated. Moderate to severe three-vessel coronary artery calcification redemonstrated. Uterus surgically absent. Extensive surgical change L3-S1 level redemonstrated. IMPRESSION: Overall mixed response with interval positive response to the right sided neoplasm but ne w disease involving the left lung and new hypermetabolic thoracic adenopathy is confirmed as suspecte d on most recent CT. Unusual hypermetabolic areas of the pelvis and upper thighs. Follow-up advised.
== END | disposition home or self-care (01) ==
LOC: RADPETMAIN 10:01
PROVIDERS: ATTEND Internal Medicine Hematology & Oncology
DX: R59.0 Localized enlarged lymph nodes (principal); J98.4 Other disorders of lung; R93.41 Abnormal radiologic findings on diagnostic imaging of renal pelvis, ureter, or bladder; R93.6 Abnormal findings on diagnostic imaging of limbs; C34.81 Malignant neoplasm of overlapping sites of right bronchus and lung
CPT/HCPCS: 78815; A9552

== ENCOUNTER → 2020-05-18 | Outpatient (CLI) | payer MEDICARE ==
--- NOTE | 2020-05-22 14:55 | CT ---
EXAMINATION TYPE: CT ChestAbdPelvis w con DATE OF EXAM: 05/18/2020 COMPARISON: 02/22/2020 CT and PET/CT dated 03/10/2020 HISTORY: Lung ca CT DLP: 2112 mGycm CONTRAST: CT scan of the chest, abdomen and pelvis is performed with Oral Contrast and with IV Contrast, patien t injected with 100 mL of Isovue 300. CT Chest: LUNGS: Left upper lobe mass persists and measures 2.8 cm versus 2.6 cm previously. There is associate d left upper lobe volume loss. Findings are mildly progressive relative to PET/CT of 03/10/2020. There are also increasing groundglass and patchy infiltrates about the right hilum. Developing pneumonia i s not excluded. Scattered areas of nodularity within the right lung persist measuring 8 mm right lowe r lobe as well as a nodular density right lower lobe measuring 1.3 cm. Vague pleural-based nodularity is seen in right lower lobe measuring up to 4 mm. MEDIASTINUM: Thoracic aorta is of normal caliber. The heart is not enlarged. There is AP window diamante nopathy which has increased since prior study measuring 1.7 cm versus 0.9 cm previously. There is an enlarging subcarinal adenopathy measuring 2.3 cm versus 1.5 cm previously. Azygoesophageal adenopathy is also noted and has progressed with current measurement of 1.8 cm versus 9 mm previously. HILAR STRUCTURES: No evidence for mass. Left hilar adenopathy measures 1.6 cm versus 1 cm previously. OTHER: No significant abnormality. CONTRAST CT ABDOMEN AND PELVIS FINDINGS: LIVER/GB: No calcified gallstones. No space occupying hepatic lesion. Biliary tree is of normal ca liber. PANCREAS: No inflammation. No distinct mass. SPLEEN: No splenic enlargement. No lesion seen. ADRENALS: Stable right adrenal nodularity measuring 1.2 cm. Left adrenal gland is stable and unremark able. No thickening. KIDNEYS/BLADDER: No hydronephrosis. No nephrolithiasis. No distinct renal mass. BOWEL: Normal appendix. Normal bowel caliber. No inflammation. GENITAL ORGANS: No gross abnormality. LYMPH NODES: No greater than 1cm abdominal or pelvic lymph nodes are appreciated. AORTA: No significant abnormality. OSSEOUS STRUCTURES: Postoperative changes lumbar spine decompressive changes noted. Pedicular screws are in place. OTHER: No significant additional abnormality is seen. IMPRESSION: 1. Mildly progressive left upper lobe mass and volume loss changes. 2. Increasing patchy and groundglass infiltrates right lung as discussed as well as nodularity. Metas tatic or recurrent disease is difficult to exclude. 3. Increasing adenopathy.
== END | disposition home or self-care (01) ==
LOC: RADCTMAIN 14:33
PROVIDERS: ATTEND Internal Medicine Hematology & Oncology
DX: Z03.89 Encounter for observation for other suspected diseases and conditions ruled out (principal); C34.12 Malignant neoplasm of upper lobe, left bronchus or lung; C34.91 Malignant neoplasm of unspecified part of right bronchus or lung; R59.1 Generalized enlarged lymph nodes; Z88.2 Allergy status to sulfonamides; Z88.1 Allergy status to other antibiotic agents; Z88.5 Allergy status to narcotic agent
CPT/HCPCS: 82565; 84520; 71260; 74177; 36415; Q9967

== ENCOUNTER 2020-05-25 01:02 | Inpatient (IN) | payer MEDICARE ==
[2020-05-25] MEDS ORDERED: SODIUM CHLORIDE 0.9% 500 ML 500 ML IV STA (01:25)
[2020-05-25] MEDS ORDERED: SODIUM CHLORIDE 0.9% 1,000 ML IV STA (01:25)
[2020-05-25] MEDS ORDERED: DILTIAZEM 5 MG/ML 5 ML VIAL IVP STA (01:25)
[2020-05-25] MEDS ORDERED: IPRATROPIUM-ALBUTEROL 3 ML NEB INHALATION STA (01:25)
--- NOTE | 2020-05-25 01:26 | ED ---
SOB HPI - General Chief Complaint: Shortness of Breath Stated Complaint: JOSE LUIS Time Seen by Provider: 05/25/20 01:08 Source: patient, RN notes reviewed, old records reviewed Mode of arrival: wheelchair Limitations: no limitations - History of Present Illness Initial Comments: This is a 74-year-old female DF for severe shortness of breath and weak and hear t rate. She feels short of breath sometimes near syncopal. Patient has known atrial fibrillation which has been progressed for the last night, they or so. Breath and elevated heart rate palpitations MD Complaint: shortness of breath, pain with inspiration, anxiety -: days(s) Severity: severe Severity scale (1-10): 8 Quality: throbbing Consistency: constant Improves With: nothing, oxygen Worsens With: exertion, movement, inspiration Known History Of: congestive heart failure Context: recent URI, anxiety, recent illness Associated Symptoms: denies other symptoms, cough, sputum production, nausea/vomiting Treatments Prior to Arrival: none - Related Data Home Medications Medication Instructions Recorded Confirmed Fenofibrate 160 mg PO DAILY 06/30/19 05/25/20 metFORMIN HCL [Glucophage] 500 mg PO PC-SUPPER 06/30/19 05/25/20 Simvastatin [Zocor] 20 mg PO HS 07/13/19 05/25/20 Previous Rx's Medication Instructions Recorded Apixaban [Eliquis] 5 mg PO BID 30 Days #60 tab 05/29/20 Albuterol Inhaler [Ventolin Hfa 2 puff INHALATION RT-QID 30 Days 05/30/20 Inhaler] #1 puff Amoxic-Pot Clav 875-125Mg 1 tab PO Q12HR 7 Days #14 tab 05/30/20 [Augmentin 875-125] Metoprolol Tartrate 75 mg PO TID 30 Days #270 tab 05/30/20 lisinopriL [Zestril] 5 mg PO DAILY 30 Days #30 tab 05/30/20 Allergies Allergy/AdvReac Type Severity Reaction Status Date / Time morphine AdvReac Severe Nausea & Verified 05/25/20 08:43 Vomiting cefuroxime [From Ceftin] AdvReac Unknown Nausea Verified 05/25/20 08:43 Sulfa (Sulfonamide AdvReac Unknown Nausea, Verified 05/25/20 08:43 Antibiotics) lightheaded Review of Systems ROS Statement: Those systems with pertinent positive or pertinent negative responses have been documented in the HPI. ROS Other: All systems not noted in ROS Statement are negative. Past Medical History Past Medical History: Atrial Fibrillation, Cancer, Diabetes Mellitus, Hypertension Additional Past Medical History / Comment(s): mass left lung Jul 2019, cough, occasional phlegm. History of Any Multi-Drug Resistant Organisms: None Reported Past Surgical History: Back Surgery, Hysterectomy Additional Past Surgical History / Comment(s): Exploratory surgery, plan for lung biopsy Jul 19 2019 Past Anesthesia/Blood Transfusion Reactions: No Reported Reaction Past Psychological History: No Psychological Hx Reported Smoking Status: Former smoker Past Alcohol Use History: Occasional Past Drug Use History: None Reported - Past Family History Mother Family Medical History: Cancer Additional Family Medical History / Comment(s): BRAIN CANCER. Sister(s) Family Medical History: Cancer Additional Family Medical History / Comment(s): BREAST AND PANCREATIC CANCER. General Exam Limitations: no limitations General appearance: alert, in no apparent distress, anxious Head exam: Present: atraumatic, normocephalic, normal inspection Eye exam: Present: normal appearance, PERRL, EOMI. Absent: scleral icterus, conjunctival injection, periorbital swelling ENT exam: Present: normal exam, mucous membranes moist Neck exam: Present: normal inspection. Absent: tenderness, meningismus, lymphadenopathy Respiratory exam: Present: respiratory distress, wheezes, accessory muscle use, decreased breath sounds, prolonged expiratory. Absent: rales, rhonchi, stridor Cardiovascular Exam: Present: tachycardia, irregular rhythm, normal heart sounds. Absent: systolic murmur, diastolic murmur, rubs, gallop, clicks GI/Abdominal exam: Present: soft, normal bowel sounds. Absent: distended, tenderness, guarding, rebound, rigid Extremities exam: Present: normal inspection, full ROM, normal capillary refill. Absent: tenderness, pedal edema, joint swelling, calf tenderness Back exam: Present: normal inspection Neurological exam: Present: alert, oriented X3, CN II-XII intact Psychiatric exam: Present: normal affect, normal mood Skin exam: Present: warm, dry, intact, normal color. Absent: rash Course Vital Signs 05/25/20 05/25/20 05/25/20 01:15 02:21 02:34 Temperature 98.3 F Pulse Rate 78 80 70 Respiratory 20 18 Rate Blood Pressure 119/98 113/79 O2 Sat by Pulse 93 L 98 Oximetry 05/25/20 05/25/20 02:47 04:30 Temperature Pulse Rate 78 89 Respiratory 18 Rate Blood Pressure 111/68 O2 Sat by Pulse 97 Oximetry - Reevaluation(s) Reevaluation #1: Medical record is reviewed Patient is informed of results here in the ER and questions are answered Patient spoken with, feeling better, symptoms remained improved Heart rate remains much improved Medical Decision Making - Medical Decision Making 74 female DF for evaluation shortness of breath can be required pneumonia, H are fibrillation RVR. Patient feeling much improved here in the ER with symptom management and can be admitted for further evaluation management - Lab Data Result diagrams: 05/30/20 05:40 05/30/20 05:40 Lab Results 05/25/20 05/25/20 05/25/20 Range/Units 01:37 01:37 01:37 WBC 5.3 (3.8-10.6) k/uL RBC 4.97 (3.80-5.40) m/uL Hgb 13.4 (11.4-16.0) gm/dL Hct 40.5 (34.0-46.0) % MCV 81.5 (80.0-100.0) fL MCH 26.9 (25.0-35.0) pg MCHC 33.0 (31.0-37.0) g/dL RDW 14.3 (11.5-15.5) % Plt Count 268 (150-450) k/uL MPV 7.5 Neutrophils % 66 % Lymphocytes % 21 % Monocytes % 7 % Eosinophils % 2 % Basophils % 1 % Neutrophils # 3.5 (1.3-7.7) k/uL Lymphocytes # 1.1 (1.0-4.8) k/uL Monocytes # 0.4 (0-1.0) k/uL Eosinophils # 0.1 (0-0.7) k/uL Basophils # 0.0 (0-0.2) k/uL Hypochromasia Slight PT 35.6 H (9.0-12.0) sec INR 3.6 H (<1.2) APTT 39.9 H (22.0-30.0) sec Sodium 136 L (137-145) mmol/L Potassium 4.2 (3.5-5.1) mmol/L Chloride 108 H (98-107) mmol/L Carbon Dioxide 20 L (22-30) mmol/L Anion Gap 8 mmol/L BUN 18 H (7-17) mg/dL Creatinine 0.81 (0.52-1.04) mg/dL Est GFR (CKD-EPI)AfAm 84 (>60 ml/min/1.73 sqM) Est GFR (CKD-EPI)NonAf 73 (>60 ml/min/1.73 sqM) Glucose 130 H (74-99) mg/dL Estimated Ave Glu mg/dL Hemoglobin A1c (4.0-6.0) % Calcium 9.1 (8.4-10.2) mg/dL Magnesium 2.0 (1.6-2.3) mg/dL Total Bilirubin 0.3 (0.2-1.3) mg/dL AST 20 (14-36) U/L ALT 10 (4-34) U/L Alkaline Phosphatase 52 (38-126) U/L Creatine Kinase 48 (30-135) U/L Troponin I (0.000-0.034) ng/mL NT-Pro-B Natriuret Pep pg/mL Total Protein 6.5 (6.3-8.2) g/dL Albumin 3.7 (3.5-5.0) g/dL 05/25/20 05/25/20 05/25/20 Range/Units 01:37 01:37 01:37 WBC (3.8-10.6) k/uL RBC (3.80-5.40) m/uL Hgb (11.4-16.0) gm/dL Hct (34.0-46.0) % MCV (80.0-100.0) fL MCH (25.0-35.0) pg MCHC (31.0-37.0) g/dL RDW (11.5-15.5) % Plt Count (150-450) k/uL MPV Neutrophils % % Lymphocytes % % Monocytes % % Eosinophils % % Basophils % % Neutrophils # (1.3-7.7) k/uL Lymphocytes # (1.0-4.8) k/uL Monocytes # (0-1.0) k/uL Eosinophils # (0-0.7) k/uL Basophils # (0-0.2) k/uL Hypochromasia PT (9.0-12.0) sec INR (<1.2) APTT (22.0-30.0) sec Sodium (137-145) mmol/L Potassium (3.5-5.1) mmol/L Chloride (98-107) mmol/L Carbon Dioxide (22-30) mmol/L Anion Gap mmol/L BUN (7-17) mg/dL Creatinine (0.52-1.04) mg/dL Est GFR (CKD-EPI)AfAm (>60 ml/min/1.73 sqM) Est GFR (CKD-EPI)NonAf (>60 ml/min/1.73 sqM) Glucose (74-99) mg/dL Estimated Ave Glu mg/dL 140 Hemoglobin A1c 6.5 H (4.0-6.0) % Calcium (8.4-10.2) mg/dL Magnesium (1.6-2.3) mg/dL Total Bilirubin (0.2-1.3) mg/dL AST (14-36) U/L ALT (4-34) U/L Alkaline Phosphatase (38-126) U/L Creatine Kinase (30-135) U/L Troponin I <0.012 (0.000-0.034) ng/mL NT-Pro-B Natriuret Pep 1420 pg/mL Total Protein (6.3-8.2) g/dL Albumin (3.5-5.0) g/dL - EKG Data -: EKG Interpreted by Me (EKG is A. fib 104 QRS 78 QTc 483) - Radiology Data Radiology results: report reviewed (Chest x-rays positive for pneumonia), image reviewed Critical Care Time Critical Care Time: Yes Total Critical Care Time: 31 Disposition Clinical Impression: Community acquired pneumonia, Atrial fibrillation with RVR, Weak Disposition: ADMITTED IP TO THIS HOSP Condition: Good Is patient prescribed a controlled substance at d/c from ED?: No
[2020-05-25 01:52] LABS: Basophils % (A) 1 %; Eosinophils # (A) 0.1 k/uL (0-0.7); Eosinophils % (A) 2 %; HCT 40.5 % (34.0-46.0); HGB 13.4 gm/dL (11.4-16.0); Hypochromasia Slight; Lymphocytes # (A) 1.1 k/uL (1.0-4.8); Lymphocytes % (A) 21 %; MCH 26.9 pg (25.0-35.0); MCV 81.5 fL (80.0-100.0); Mean Platelet Volume 7.5; Monocytes # (A) 0.4 k/uL (0-1.0); Monocytes % (A) 7 %; Neutrophils # (A) 3.5 k/uL (1.3-7.7); Neutrophils % (A) 66 %; Platelet Count 268 k/uL (150-450); RBC 4.97 m/uL (3.80-5.40); RDW 14.3 % (11.5-15.5); WBC 5.3 k/uL (3.8-10.6)
--- NOTE | 2020-05-25 02:04 | XR ---
EXAM: XR Chest, 2 Views CLINICAL HISTORY: Difficulty breathing. TECHNIQUE: Frontal and lateral views of the chest. COMPARISON: CT scan of chest May 18, 2020. FINDINGS: Lungs: There are bilateral pulmonary infiltrates, most extensively on the right in the perihilar and basal regions. There is a band of atelectasis in the left upper lobe. These findings were seen on the recent CT scan, though comparison for improvement or worsening is difficult between the 2 modalities. Pleural space: No pleural fluid collection or pneumothorax. Heart: Cardiomegaly. Mediastinum: Unremarkable. Bones/joints: Unremarkable. No acute abnormalities. IMPRESSION: Bilateral pulmonary infiltrates, most pronounced on the right. Band of atelectasis in the left upper lobe.
[2020-05-25 02:17] LABS: INR 3.6 (<1.2); Partial Thromboplastin Time 39.9 sec (22.0-30.0); Prothrombin Time 35.6 sec (9.0-12.0)
[2020-05-25 02:20] LABS: Albumin 3.7 g/dL (3.5-5.0); Calcium 9.1 mg/dL (8.4-10.2); Potassium 4.2 mmol/L (3.5-5.1); Total Bilirubin 0.3 mg/dL (0.2-1.3); Total Protein 6.5 g/dL (6.3-8.2)
[2020-05-25] MEDS ORDERED: PNEUMONIA PROTOCOL UTILIZED 1 EACH MISC PO PRN (03:50)
[2020-05-25] MEDS ORDERED: AZITHROMYCIN 500 MG in SODIUM CHLORIDE 0.9% 250 ML IVPB ONE (04:00)
[2020-05-25] MEDS ORDERED: PIPERACILLIN-TAZOBACTAM 3.375 GM in SODIUM CHLORIDE 0.9% 100 ML IVPB ONE (04:00)
[2020-05-25] MEDS: SODIUM CHLORIDE 0.9% 1,000 ML IV SCH ×2 (05:38→13:16)
[2020-05-25] MEDS: PIPERACILLIN-TAZOBACTAM 3.375 GM in SODIUM CHLORIDE 0.9% 100 ML IVPB SCH ×2 (13:05→19:51)
[2020-05-25] MEDS ORDERED: METOPROLOL TARTRATE 25 MG TAB PO STA (13:56)
[2020-05-25] MEDS ORDERED: PROPAFENONE 150 MG TAB PO STA (13:57)
[2020-05-25] MEDS: lisinopriL 10 MG TAB PO SCH (14:18)
[2020-05-25] MEDS: FENOFIBRATE 160 MG TAB PO SCH (14:18)
--- NOTE | 2020-05-25 14:44 | P.HPIM ---
History of Present Illness 74-year-old the very pleasant female with known history of lung cancercame in with comments of shortness of breath found to be in atrial fibrillation with rapid ventricular rate. Patient heart rate was about 100 unfortunately she di dn't receive any of her heart rate medications today because of which it went up to 130s. Patient is also found to have bilateral infiltratemore pronounced in the right side with a band of atelectasis in the left upper lobe. Patient doesn't have any fever was comparing of cough without any significant sputum productionpatient doesn't have any leukocytosis. Patient may have postobstructive atelectasis although I cannot completely rule out postobstructive pneumonia patient is presently on Zosyn will be discharged on Augmentin if her heart rate comes down after metoprolol and flecainide. Review of Systems REVIEW OF SYSTEMS: CONSTITUTIONAL: No fever, no malaise, no fatigue. HEENT: No recent visual problems or hearing problems. Denied any sore throat. CARDIOVASCULAR: No chest pain, orthopnea, PND, no palpitations, no syncope. PULMONARY: no hemoptysis. GASTROINTESTINAL: No diarrhea, no nausea, no vomiting, no abdominal pain. NEUROLOGICAL: No headaches, no weakness, no numbness. HEMATOLOGICAL: Denies any bleeding or petechiae. GENITOURINARY: Denies any burning micturition, frequency, or urgency. MUSCULOSKELETAL/RHEUMATOLOGICAL: Denies any joint pain, swelling, or any muscle pain. ENDOCRINE: Denies any polyuria or polydipsia. The rest of the 14-point review of systems is negative. Past Medical History Past Medical History: Atrial Fibrillation, Cancer, Diabetes Mellitus, Hypertension Additional Past Medical History / Comment(s): mass left lung Jul 2019, cough, occasional phlegm. History of Any Multi-Drug Resistant Organisms: None Reported Past Surgical History: Back Surgery, Hysterectomy Additional Past Surgical History / Comment(s): Exploratory surgery, plan for lung biopsy Jul 19 2019 Past Anesthesia/Blood Transfusion Reactions: No Reported Reaction Past Psychological History: No Psychological Hx Reported Smoking Status: Former smoker Past Alcohol Use History: Occasional Past Drug Use History: None Reported - Past Family History Mother Family Medical History: Cancer Additional Family Medical History / Comment(s): BRAIN CANCER. Sister(s) Family Medical History: Cancer Additional Family Medical History / Comment(s): BREAST AND PANCREATIC CANCER. Medications and Allergies Home Medications Medication Instructions Recorded Confirmed Type Fenofibrate 160 mg PO DAILY 06/30/19 05/25/20 History Propafenone [Rythmol] 150 mg PO TID 06/30/19 05/25/20 History lisinopriL [Zestril] 20 mg PO DAILY 06/30/19 05/25/20 History metFORMIN HCL [Glucophage] 500 mg PO PC-SUPPER 06/30/19 05/25/20 History Simvastatin [Zocor] 20 mg PO HS 07/13/19 05/25/20 History Albuterol Inhaler [Ventolin Hfa 2 puff INHALATION RT-QID PRN #1 05/25/20 Rx Inhaler] inhaler Amoxicillin/Potassium Clav 1 tab PO Q12HR 7 Days #14 tab 05/25/20 Rx [Augmentin 500-125 Tablet] Metoprolol Tartrate 25 mg PO TID 05/25/20 05/25/20 History Warfarin [Coumadin] 5 mg PO DAILY #30 tab 05/25/20 Rx Allergies Allergy/AdvReac Type Severity Reaction Status Date / Time morphine AdvReac Severe Nausea & Verified 05/25/20 08:43 Vomiting cefuroxime [From Ceftin] AdvReac Unknown Nausea Verified 05/25/20 08:43 Sulfa (Sulfonamide AdvReac Unknown Nausea, Verified 05/25/20 08:43 Antibiotics) lightheaded Physical Exam Vitals: Vital Signs Temp Pulse Pulse Pulse Pulse Resp BP 05/25/20 13:49 117 H 130 H 05/25/20 10:55 97.6 F 91 18 05/25/20 04:30 89 18 111/68 05/25/20 02:47 78 05/25/20 02:34 70 18 113/79 05/25/20 02:21 80 05/25/20 01:15 98.3 F 78 20 119/98 BP Pulse Ox Pulse Ox Pulse Ox 05/25/20 13:49 91 L 89 L 05/25/20 10:55 120/83 97 05/25/20 04:30 97 05/25/20 02:47 05/25/20 02:34 98 05/25/20 02:21 05/25/20 01:15 93 L Intake and Output 05/24/20 05/25/20 05/25/20 22:59 06:59 14:59 Intake Total 100 Balance 100 Intake: Intake, IV Titration 100 Amount Sodium Chloride 0.9% 1, 100 000 ml @ 100 mls/hr IV . Q10H [facility] Rx#:[id number] Other: Voiding Method Toilet # Voids 1 Weight 82.1 kg PHYSICAL EXAMINATION: GENERAL: The patient is alert and oriented x3, not in any acute distress. Well developed, well nourished. HEENT: Pupils are round and equally reacting to light. EOMI. No scleral icterus. No conjunctival pallor. Normocephalic, atraumatic. No pharyngeal erythema. No thyromegaly. CARDIOVASCULAR: S1 and S2 present. No murmurs, rubs, or gallops, irregularly irregular rhythm. Tachycardic. PULMONARY: Chest is clear to auscultation, no wheezing or crackles. ABDOMEN: Soft, nontender, nondistended, normoactive bowel sounds. No palpable organomegaly. MUSCULOSKELETAL: No joint swelling or deformity. EXTREMITIES: No cyanosis, clubbing, or pedal edema. NEUROLOGICAL: Gross neurological examination did not reveal any focal deficits. SKIN: No rashes. Results CBC & Chem 7: 05/25/20 01:37 05/25/20 01:37 Labs: Abnormal Lab Results - Last 24 Hours (Table) 05/25/20 05/25/20 Range/Units 01:37 01:37 PT 35.6 H (9.0-12.0) sec INR 3.6 H (<1.2) APTT 39.9 H (22.0-30.0) sec Sodium 136 L (137-145) mmol/L Chloride 108 H (98-107) mmol/L Carbon Dioxide 20 L (22-30) mmol/L BUN 18 H (7-17) mg/dL Glucose 130 H (74-99) mg/dL Thrombosis Risk Factor Assmnt - Choose All That Apply Any of the Below Risk Factors Present?: Yes Each Factor Represents 1 point: Obesity (BMI >25), Serious lung disease incl. pneumonia (< 1month) Other Risk Factors: Yes Each Risk Factor Represents 2 Points: Age 61-74 years Other congenital or acquired thrombophilia - If yes, enter type in comment: No Thrombosis Risk Factor Assessment Total Risk Factor Score: 4 Thrombosis Risk Factor Assessment Level: Moderate Risk Assessment and Plan Plan: Shortness of breath: Most probably secondary to atrial fibrillation with rapid and regular rate can be related to worsening cancer and infiltrate and possible pneumonia.if her heart rate comes down as mentioned above patient will be discharged today or else patient may end up needing stating staying in the hospital for better control of heart rate and we may need to increase the dose of beta jalen. Cardiology will evaluate the patient. -Proximal A. fib patient presently has abdomen rate: Further management as mentioned above patient is on Coumadin dose of which will be cut down to 5 mg daily patient's INR is mildly supratherapeutic and patient will need repeat INR in couple days -possibly a postobstructive pneumonia or atelectasis: Patient will be discharged on Augmentin -hypertension: patient probably will not require amlodipine this will discontinued patient need to closely check her blood pressure at home. -Type 2 diabetes mellitus continue with metformin
--- NOTE | 2020-05-25 14:44 | P.DS ---
Providers Date of admission: 05/25/20 03:50 Attending physician: Francisco Ramirez Consults: 05/25/20 03:50 Consult Physician Routine Consulting Provider: Madhu Roy Consult Reason/Comments: afib Do you want consulting provider notified?: Yes Primary care physician: Francisco Ramirez Hospital Course: As mentioned in HPI Patient Condition at Discharge: Good Plan - Discharge Summary Discharge Rx Participant: No New Discharge Prescriptions: New Amoxicillin/Potassium Clav [Augmentin 500-125 Tablet] 1 tab PO Q12HR 7 Days #14 tab Warfarin [Coumadin] 5 mg PO DAILY #30 tab Albuterol Inhaler [Ventolin Hfa Inhaler] 2 puff INHALATION RT-QID PRN #1 inhaler PRN Reason: Shortness Of Breath Or Wheezing Continue lisinopriL [Zestril] 20 mg PO DAILY Propafenone [Rythmol] 150 mg PO TID Fenofibrate 160 mg PO DAILY metFORMIN HCL [Glucophage] 500 mg PO PC-SUPPER Simvastatin [Zocor] 20 mg PO HS Metoprolol Tartrate 25 mg PO TID Discontinued amLODIPine [Norvasc] 5 mg PO DAILY Warfarin [Coumadin] 7.5 mg PO MOWESA Warfarin [Coumadin] 3.75 mg PO SUTUTHFR Discharge Medication List Fenofibrate 160 mg PO DAILY 06/30/19 [History] Propafenone [Rythmol] 150 mg PO TID 06/30/19 [History] lisinopriL [Zestril] 20 mg PO DAILY 06/30/19 [History] metFORMIN HCL [Glucophage] 500 mg PO PC-SUPPER 06/30/19 [History] Simvastatin [Zocor] 20 mg PO HS 07/13/19 [History] Albuterol Inhaler [Ventolin Hfa Inhaler] 2 puff INHALATION RT-QID PRN #1 inhaler 05/25/20 [Rx] Amoxicillin/Potassium Clav [Augmentin 500-125 Tablet] 1 tab PO Q12HR 7 Days #14 tab 05/25/20 [Rx] Metoprolol Tartrate 25 mg PO TID 05/25/20 [History] Warfarin [Coumadin] 5 mg PO DAILY #30 tab 05/25/20 [Rx] Follow up Appointment(s)/Referral(s): Francisco Ramirez DO [Primary Care Provider] - 3 Days Activity/Diet/Wound Care/Special Instructions: INR in 2 days
[2020-05-25] MEDS: IPRATROPIUM-ALBUTEROL 3 ML NEB INHALATION PRN ×2 (15:56→18:23)
[2020-05-25] MEDS: INSULIN ASPART (NovoLOG) 100 UNIT/ML VIAL SQ SCH ×2 (17:30→22:11)
--- NOTE | 2020-05-25 17:39 | P.CRDCN ---
History of Present Illness History of present illness: HISTORY OF PRESENTING ILLNESS This is a pleasant 74-year-old female past medical history significant for lung cancer, paroxysmal atrial fibrillation, essential hypertension. She follows in the office with Dr Dee. We have been asked to see in consultation for atrial fibrillation. Patient states additionally she had lung cancer on the right side which was treated however had recurrence of what she says is non-small cell lung cancer on the left diagnosed a few months ago. She states she has been undergoing workup for the cancer and is being evaluated for immunotherapy by her oncologist. Unfortunately she has been increasingly symptomatic over the past one week. She states she has noticed increased dyspnea on exertion and therefore was seen by Dr. Dee in the office one week ago. Patient was found to be in A. fib and was felt to be symptomatic from her A. fib and was therefore scheduled for an outpatient cardioversion to take place on 05/31/2020. Unfortunately patient had episode overnight where she felt more short of breath and therefore presented to the emergency department. She admits Dr. Dee had increased her metoprolol from a half a tablet twice a day to a full tablet 3 times a day during her last visit. On admission patient was found to be in A. fib with heart rate 104 bpm. Today she states she feels better and feels somewhat back to her baseline however still short of breath when she exerts herself. She denies any recent fevers, chills. She does have a chronic cough and feels like a tickle in her throat. She did have a chest x-ray performed which showed bilateral infiltrates, unclear if these represent her lung cancer or post obstructive pneumonia. DIAGNOSTICS EKG reveals atrial fibrillation with heart rate 10 4 bpm, normal axis, nonspecific T-wave inversions, incomplete right bundle branch block. Chest xray bilateral pulmonary infiltrates, most pronounced on the right. Band of atelectasis in the left upper lobe. Laboratory reviewed, white blood cell count 5.3, hemoglobin 13.4, platelets 268, INR 3.6, creatinine 0.81, troponin less than 0.121, proBNP 1420. Current cardiac medications include Lipitor 10 mg daily, lisinopril 10 mg daily, Lopressor 50 mg twice a day, Rythmol 150 mg 3 times a day. REVIEW OF SYSTEMS At the time of my exam: CONSTITUTIONAL: Denies fever or chills. CARDIOVASCULAR: Denies chest pain, +shortness of breath, no orthopnea, PND, +palpitations. RESPIRATORY: + Mild cough. GASTROINTESTINAL: Denies abdominal pain, diarrhea, constipation, nausea or vomiting. MUSCULOSKELETAL: Denies myalgias. NEUROLOGIC: Denies numbness, tingling or weakness. ENDOCRINE: Denies fatigue, weight change, polydipsia or polyurina. GENITOURINARY: Denies burning, hematuria or urgency with micturation. HEMATOLOGIC: Denies history of anemia or bleeding. PHYSICAL EXAMINATION Blood pressure 120/83 heart rate 91 afebrile and maintaining oxygen saturation on room air. CONSTITUTIONAL: No apparent distress, obese. HEENT: Head is normocephalic. Pupils are equal, round. Sclerae anicteric. Mucous membranes of the mouth are moist. No JVD. No carotid bruit. CHEST EXAMINATION: Bilateral rhonchi. No chest wall tenderness is noted on palpation or with deep breathing. HEART EXAMINATION: Irregularly irregular rate and rhythm. S1, S2 heard. No murmurs, gallops or rub. ABDOMEN: Soft, nontender. Positive bowel sounds. EXTREMITIES: 2+ peripheral pulses, no lower extremity edema and no calf tenderness. NEUROLOGIC EXAMINATION: Patient is awake, alert and oriented x3. ASSESSMENT 1. Acute on chronic respiratory failure likely multifactorial related to lung cancer, possible postobstructive pneumonia. Covid 19 negative. 2. Paroxysmal atrial fibrillation, currently atrial fibrillation with mild RVR at times 3. Recurrence of lung cancer, being evaluated for possible immunotherapy 4. Essential hypertension 5. Supratherapeutic INR PLAN Patient with worsened symptoms over the past one week. Unclear if this is related mainly to her atrial fibrillation or more so from her lung cancer and possible postobstructive pneumonia. Overall patient feels improved from presentation. Heart rates are predominantly controlled however increase when she gets up to walk around. Discussed possible options including continued admission with titration of medications, possible cardioversion which may be difficult to facilitate given holidays or possible discharge home on current medications with outpatient cardioversion on 05/31/2020 as previously discussed with primary gum remover, Dr. Dee. Patient is anxious to go home and patient appears stable from a cardiac standpoint. Discussed the importance of close outpatient follow-up and patient is agreeable. Would recommend hold Coumadin tonight and restart Coumadin 5 mg tomorrow night. Continue to monitor with increased metoprolol dose. Past Medical History Past Medical History: Atrial Fibrillation, Cancer, Diabetes Mellitus, H ypertension Additional Past Medical History / Comment(s): mass left lung Jul 2019, cough, occasional phlegm. History of Any Multi-Drug Resistant Organisms: None Reported Past Surgical History: Back Surgery, Hysterectomy Additional Past Surgical History / Comment(s): Exploratory surgery, plan for michael g biopsy Jul 19 2019 Past Anesthesia/Blood Transfusion Reactions: No Reported Reaction Past Psychological History: No Psychological Hx Reported Smoking Status: Former smoker Past Alcohol Use History: Occasional Past Drug Use History: None Reported - Past Family History Mother Family Medical History: Cancer Additional Family Medical History / Comment(s): BRAIN CANCER. Sister(s) Family Medical History: Cancer Additional Family Medical History / Comment(s): BREAST AND PANCREATIC CANCER. Medications and Allergies Home Medications Medication Instructions Recorded Confirmed Type Fenofibrate 160 mg PO DAILY 06/30/19 05/25/20 History Propafenone [Rythmol] 150 mg PO TID 06/30/19 05/25/20 History lisinopriL [Zestril] 20 mg PO DAILY 06/30/19 05/25/20 History metFORMIN HCL [Glucophage] 500 mg PO PC-SUPPER 06/30/19 05/25/20 History Simvastatin [Zocor] 20 mg PO HS 07/13/19 05/25/20 History Albuterol Inhaler [Ventolin Hfa 2 puff INHALATION RT-QID PRN #1 05/25/20 Rx Inhaler] inhaler Amoxicillin/Potassium Clav 1 tab PO Q12HR 7 Days #14 tab 05/25/20 Rx [Augmentin 500-125 Tablet] Metoprolol Tartrate 25 mg PO TID 05/25/20 05/25/20 History Warfarin [Coumadin] 5 mg PO DAILY #30 tab 05/25/20 Rx Allergies Allergy/AdvReac Type Severity Reaction Status Date / Time morphine AdvReac Severe Nausea & Verified 05/25/20 08:43 Vomiting cefuroxime [From Ceftin] AdvReac Unknown Nausea Verified 05/25/20 08:43 Sulfa (Sulfonamide AdvReac Unknown Nausea, Verified 05/25/20 08:43 Antibiotics) lightheaded Physical Exam Vitals: Vital Signs Temp Pulse Pulse Pulse Pulse Resp BP 05/25/20 16:07 75 05/25/20 15:56 75 05/25/20 13:49 117 H 130 H 05/25/20 10:55 97.6 F 91 18 05/25/20 04:30 89 18 111/68 05/25/20 02:47 78 05/25/20 02:34 70 18 113/79 05/25/20 02:21 80 05/25/20 01:15 98.3 F 78 20 119/98 BP Pulse Ox Pulse Ox Pulse Ox 05/25/20 16:07 05/25/20 15:56 05/25/20 13:49 91 L 89 L 05/25/20 10:55 120/83 97 05/25/20 04:30 97 05/25/20 02:47 05/25/20 02:34 98 05/25/20 02:21 05/25/20 01:15 93 L Intake and Output 05/25/20 05/25/20 05/25/20 06:59 14:59 22:59 Intake Total 100 Balance 100 Intake: Intake, IV Titration 100 Amount Sodium Chloride 0.9% 1, 100 000 ml @ 100 mls/hr IV . Q10H [facility] Rx#:[id number] Other: Voiding Method Toilet # Voids 1 Weight 82.1 kg Results 05/25/20 01:37 05/25/20 01:37 Cardiac Enzymes 05/25/20 05/25/20 Range/Units 01:37 01:37 AST 20 (14-36) U/L Troponin I <0.012 (0.000-0.034) ng/mL Coagulation 05/25/20 Range/Units 01:37 PT 35.6 H (9.0-12.0) sec APTT 39.9 H (22.0-30.0) sec CBC 05/25/20 Range/Units 01:37 WBC 5.3 (3.8-10.6) k/uL RBC 4.97 (3.80-5.40) m/uL Hgb 13.4 (11.4-16.0) gm/dL Hct 40.5 (34.0-46.0) % Plt Count 268 (150-450) k/uL Comprehensive Metabolic Panel 05/25/20 Range/Units 01:37 Sodium 136 L (137-145) mmol/L Potassium 4.2 (3.5-5.1) mmol/L Chloride 108 H (98-107) mmol/L Carbon Dioxide 20 L (22-30) mmol/L BUN 18 H (7-17) mg/dL Creatinine 0.81 (0.52-1.04) mg/dL Glucose 130 H (74-99) mg/dL Calcium 9.1 (8.4-10.2) mg/dL AST 20 (14-36) U/L ALT 10 (4-34) U/L Alkaline Phosphatase 52 (38-126) U/L Total Protein 6.5 (6.3-8.2) g/dL Albumin 3.7 (3.5-5.0) g/dL Current Medications Generic Name Dose Route Start Last Admin Trade Name Freq PRN Reason Stop Dose Admin Albuterol/Ipratropium 3 ml 05/25/20 03:50 05/25/20 15:56 Ipratropium-Albuterol 3 Ml Neb INHALATION 3 ml RT-Q4H PRN Administration shortness of breath Atorvastatin Calcium 10 mg 05/25/20 21:00 Atorvastatin 10 Mg Tab PO HS ELSIE Fenofibrate 160 mg 05/25/20 14:02 05/25/20 14:18 Fenofibrate 160 Mg Tab PO 160 mg DAILY ELSIE Administration Sodium Chloride 1,000 mls @ 100 mls/hr 05/25/20 04:00 05/25/20 13:16 Saline 0.9% IV 100 mls/hr .Q10H ELSIE Administration Piperacillin Sod/Tazobactam 100 mls @ 25 mls/hr 05/25/20 12:00 05/25/20 13:05 Sod 3.375 gm/ Sodium Chloride IVPB 25 mls/hr Q8H ELSIE Administration Insulin Aspart 0 unit 05/25/20 17:30 Insulin Aspart (Novolog) 100 Unit/Ml Vial SQ ACHS ELSIE Protocol Lisinopril 10 mg 05/25/20 14:15 05/25/20 14:18 Lisinopril 10 Mg Tab PO 10 mg DAILY ELSIE Administration Metoprolol Tartrate 50 mg 05/25/20 21:00 Metoprolol Tartrate 50 Mg Tab PO BID ELSIE Miscellaneous Information 1 each 05/25/20 03:50 Pneumonia Protocol Utilized 1 Each Misc PO ONCE PRN Per Protocol Propafenone HCl 150 mg 05/25/20 22:00 Propafenone 150 Mg Tab PO TID [facility] Intake and Output 05/25/20 05/25/20 05/25/20 06:59 14:59 22:59 Intake Total 100 Balance 100 Intake: Intake, IV Titration 100 Amount Sodium Chloride 0.9% 1, 100 000 ml @ 100 mls/hr IV . Q10H [facility] Rx#:[id number] Other: Voiding Method Toilet # Voids 1 Weight 82.1 kg 05/25/20 01:37 05/25/20 01:37
[2020-05-25] MEDS ORDERED: METOPROLOL TARTRATE 25 MG TAB PO SCH (22:00)
[2020-05-25] MEDS: PROPAFENONE 150 MG TAB PO SCH (22:09)
[2020-05-25] MEDS: METOPROLOL TARTRATE 50 MG TAB PO SCH (22:09)
[2020-05-25] MEDS: ATORVASTATIN 10 MG TAB PO SCH (22:09)
[2020-05-26] MEDS: PIPERACILLIN-TAZOBACTAM 3.375 GM in SODIUM CHLORIDE 0.9% 100 ML IVPB SCH ×3 (05:18→19:39)
[2020-05-26] MEDS: SODIUM CHLORIDE 0.9% 1,000 ML IV SCH ×3 (05:19→19:39)
--- NOTE | 2020-05-26 06:52 | XR ---
EXAM: XR Chest, 1 View CLINICAL HISTORY: ITS.REASON XR Reason: pneumonia TECHNIQUE: Frontal view of the chest. COMPARISON: 05/25/2020 IMPRESSION: Redemonstration of bilateral lung opacities. Appears mildly worsened in the left lung base. Unchanged heart size. Mild left pleural effusion.
[2020-05-26] MEDS: INSULIN ASPART (NovoLOG) 100 UNIT/ML VIAL SQ SCH ×4 (07:40→21:04)
[2020-05-26] MEDS: FENOFIBRATE 160 MG TAB PO SCH (08:53)
[2020-05-26] MEDS: METOPROLOL TARTRATE 50 MG TAB PO SCH ×3 (08:53→20:57)
[2020-05-26] MEDS: lisinopriL 10 MG TAB PO SCH (08:53)
[2020-05-26] MEDS: PROPAFENONE 150 MG TAB PO SCH (08:53)
[2020-05-26] MEDS ORDERED: FENOFIBRATE 160 MG TAB PO SCH (09:00)
[2020-05-26] MEDS ORDERED: lisinopriL 10 MG TAB PO SCH (09:00)
[2020-05-26] MEDS ORDERED: AZITHROMYCIN 500 MG TAB PO SCH (09:00)
[2020-05-26] MEDS: IPRATROPIUM-ALBUTEROL 3 ML NEB INHALATION PRN (09:19)
[2020-05-26] MEDS ORDERED: TRIMETHOBENZAMIDE 300 MG CAP PO PRN (10:21)
--- NOTE | 2020-05-26 12:22 | P.PN ---
Subjective 74-year-old the very pleasant female with known history of lung cancercame in with comments of shortness of breath found to be in atrial fibrillation with rapid ventricular rate. Patient heart rate was about 100 unfortunately she didn't receive any of her heart rate medications today because of which it went up to 130s. Patient is also found to have bilateral infiltratemore pronounced in the right side with a band of atelectasis in the left upper lobe. Patient doesn't have any fever was comparing of cough without any significant sputum pro ductionpatient doesn't have any leukocytosis. Patient may have postobstructive atelectasis although I cannot completely rule out postobstructive pneumonia patient is presently on Zosyn will be discharged on Augmentin if her heart rate comes down after metoprolol and flecainide. 05/26/2020 Patient is looking much better with the heart rate is still high. Patient the metoprolol dose was increased to 50 twice a day yesterday I'll increase it to 50 3 times a day. Cardiology will evaluate the patient. Repeat INR is pending. Patient remains on Zosyn which will continue for now. Blood pressures stable. Constitutional: Denied any fatigue denied any fever. Cardio vascular: denied any chest pain, palpitations Gastrointestinal denied any nausea vomiting Pulmonary: Denied any shortness of breath cough Neurologic denied any new focal deficits All inpatient medications were reviewed and appropriate changes in these medications as dictated in the interval history and assessment and plan. Objective - Vital Signs Vital signs: Vital Signs Temp 98.1 F 05/26/20 11:00 Pulse 117 H 05/26/20 11:00 Resp 20 05/26/20 11:00 BP 125/79 05/26/20 11:00 Pulse Ox 91 L 05/26/20 11:00 Intake & Output 05/25/20 05/26/20 05/26/20 18:59 06:59 18:59 Intake Total 1200 Balance 1200 Intake: Intake, IV Titration 1200 Amount Sodium Chloride 0.9% 1, 1200 000 ml @ 100 mls/hr IV . Q10H [facility] Rx#:[id number] Other: Voiding Method Toilet # Voids 2 1 - Exam PHYSICAL EXAMINATION: GENERAL: The patient is alert and oriented x3, not in any acute distress. Well developed, well nourished. HEENT: Pupils are round and equally reacting to light. EOMI. No scleral icterus. No conjunctival pallor. Normocephalic, atraumatic. No pharyngeal erythema. No thyromegaly. CARDIOVASCULAR: S1 and S2 present. No murmurs, rubs, or gallops, irregularly irregular rhythm. Tachycardic. PULMONARY: Chest is clear to auscultation, no wheezing or crackles. ABDOMEN: Soft, nontender, nondistended, normoactive bowel sounds. No palpable organomegaly. MUSCULOSKELETAL: No joint swelling or deformity. EXTREMITIES: No cyanosis, clubbing, or pedal edema. NEUROLOGICAL: Gross neurological examination did not reveal any focal deficits. SKIN: No rashes. - Labs CBC & Chem 7: 05/25/20 01:37 05/25/20 01:37 Labs: Microbiology - Last 24 Hours (Table) 05/25/20 04:18 Blood Culture - Preliminary Blood No Growth after 24 hours 05/25/20 04:00 Blood Culture - Preliminary Blood No Growth after 24 hours Assessment and Plan Plan: Shortness of breath: Most probably secondary to atrial fibrillation with rapid and regular rate can be related to worsening cancer and infiltrate and possible pneumonia. patient will be continued on Zosyn for now -Proximal A. fib with rapid ventricular rate: INR is pending, will resume C oumadin depending on INR probably will need a lower dose increase the metoprolol to 50 3 times a day -possibly a postobstructive pneumonia or atelectasis: Continue with Zosyn for now will be discharged with Augmentin -hypertension: Controlled with present regimen. -Type 2 diabetes mellitus continue with metformin
[2020-05-26 13:14] LABS: Basophils % (A) 1 %; Eosinophils # (A) 0.1 k/uL (0-0.7); Eosinophils % (A) 2 %; HCT 41.8 % (34.0-46.0); HGB 13.5 gm/dL (11.4-16.0); Hypochromasia Slight; Lymphocytes % (A) 16 %; MCHC 32.2 g/dL (31.0-37.0); MCV 83.8 fL (80.0-100.0); Mean Platelet Volume 7.5; Monocytes # (A) 0.4 k/uL (0-1.0); Monocytes % (A) 6 %; Neutrophils # (A) 4.6 k/uL (1.3-7.7); Neutrophils % (A) 73 %; Platelet Count 269 k/uL (150-450); RBC 4.99 m/uL (3.80-5.40); RDW 14.4 % (11.5-15.5); WBC 6.3 k/uL (3.8-10.6)
[2020-05-26 13:32] LABS: Hemoglobin A1C 6.5 % (4.0-6.0)
--- NOTE | 2020-05-26 13:46 | P.PN ---
Subjective HISTORY OF PRESENTING ILLNESS This is a pleasant 74-year-old female past medical history significant for lung cancer, paroxysmal atrial fibrillation, essential hypertension. She follows in the office with Dr Dee. We have been asked to see in consultation for atrial fibrillation. Patient states additionally she had lung cancer on the right side which was treated however had recurrence of what she says is non-small cell lung cancer on the left diagnosed a few months ago. She states she has been undergoing workup for the cancer and is being evaluated for immunotherapy by her oncologist. Unfortunately she has been increasingly symptomatic over the past one week. She states she has noticed increased dyspnea on exertion and therefore was seen by Dr. Dee in the office one week ago. Patient was found to be in A. fib and was felt to be symptomatic from her A. fib and was therefore scheduled for an outpatient cardioversion to take place on 05/31/2020. Unfortunately patient had episode overnight where she felt more short of breath and therefore presented to the emergency department. She admits Dr. Dee had increased her metoprolol from a half a tablet twice a day to a full tablet 3 times a day during her last visit. On admission patient was found to be in A. fib with heart rate 104 bpm. Today she states she feels better and feels somewhat back to her baseline however still short of breath when she exerts herself. She denies any recent fevers, chills. She does have a chronic cough and feels like a tickle in her throat. She did have a chest x-ray performed which showed bilateral infiltrates, unclear if these represent her lung cancer or post obstructive pneumonia. 05/26/2020: Patient seen and examined. We had hoped that patient had been able to be discharged yesterday with outpatient follow-up however she remained tachycardic and therefore monitored overnight. She still remains in A. fib with heart rates 110s and 120s. She still admits to feeling fairly short of breath with minimal activity. She denies any orthopnea. Metoprolol was increased from 50 mg twice a day to 50 mg 3 times a day. She admits to continued epigastric bubblelike sensation which makes her feel somewhat nauseous which is similar to when she came in. She states she believes if she could burp this may be she would feel better. She did have a repeat chest x-ray performed which continued to show bilateral lung opacities which appears to be mildly worsened in the left lower lung. She admits to feeling somewhat lightheaded. REVIEW OF SYSTEMS At the time of my exam: CONSTITUTIONAL: Denies fever or chills. CARDIOVASCULAR: Denies chest pain, +shortness of breath, no orthopnea, PND, +palpitations. RESPIRATORY: + Mild cough. GASTROINTESTINAL: Denies abdominal pain, diarrhea, constipation, nausea or vomiting. MUSCULOSKELETAL: Denies myalgias. NEUROLOGIC: Denies numbness, tingling or weakness. ENDOCRINE: Denies fatigue, weight change, polydipsia or polyurina. GENITOURINARY: Denies burning, hematuria or urgency with micturation. HEMATOLOGIC: Denies history of anemia or bleeding. PHYSICAL EXAMINATION Blood pressure 125/79 heart rate 117 afebrile and maintaining oxygen saturation on 2 L nasal cannula. CONSTITUTIONAL: No apparent distress, obese. HEENT: Head is normocephalic. Pupils are equal, round. Sclerae anicteric. Mucous membranes of the mouth are moist. No JVD. No carotid bruit. CHEST EXAMINATION: Bilateral rhonchi. No chest wall tenderness is noted on palpation or with deep breathing. HEART EXAMINATION: Irregularly irregular rate and rhythm. S1, S2 heard. +2/6 systolic murmur, no gallops or rub. ABDOMEN: Soft, nontender. Positive bowel sounds. EXTREMITIES: 2+ peripheral pulses, no lower extremity edema and no calf tenderness. NEUROLOGIC EXAMINATION: Patient is awake, alert and oriented x3. ASSESSMENT 1. Acute on chronic respiratory failure likely multifactorial related to lung cancer, possible postobstructive pneumonia and A. fib. Covid 19 negative. 2. Paroxysmal atrial fibrillation, currently atrial fibrillation with mild RVR at times 3. Recurrence of lung cancer, being evaluated for possible immunotherapy 4. Essential hypertension 5. Supratherapeutic INR PLAN Was hoping that patient would feel better and may have possibly been discharged with outpatient [place] cardioversion as scheduled for next Friday however patient's heart rates continue to be elevated and she continues to be fairly symptomatic. Metoprolol was increased from 50 mg twice a day (which had just been recently increased by primary piper installer Dr. Dee) to 50 mg 3 times a day today. Continue antibiotics for possible pneumonia. Check INR and goal INR 2-3. We will attempt rhythm control and as patient has been fairly symptomatic and her heart rates have been preventing her from receiving treatment for her lung cancer, we will change her Rythmol to amiodarone with hold for rhythm control strategy. Hopeful pharmacologic cardioversion and if not, we will proceed with [place] cardioversion when next able, likely friday. Objective - Vital Signs Vital signs: Vital Signs Temp 98.1 F 05/26/20 11:00 Pulse 117 H 05/26/20 11:00 Resp 20 05/26/20 11:00 BP 125/79 05/26/20 11:00 Pulse Ox 91 L 05/26/20 11:00 Intake & Output 05/25/20 05/26/20 05/26/20 18:59 06:59 18:59 Intake Total 1200 Balance 1200 Intake: Intake, IV Titration 1200 Amount Sodium Chloride 0.9% 1, 1200 000 ml @ 100 mls/hr IV . Q10H [facility] Rx#:[id number] Other: Voiding Method Toilet # Voids 2 1 - Labs CBC & Chem 7: 05/26/20 12:11 05/25/20 01:37 Labs: Abnormal Lab Results - Last 24 Hours (Table) 05/25/20 Range/Units 01:37 Hemoglobin A1c 6.5 H (4.0-6.0) % Microbiology - Last 24 Hours (Table) 05/25/20 04:18 Blood Culture - Preliminary Blood No Growth after 24 hours 05/25/20 04:00 Blood Culture - Preliminary Blood No Growth after 24 hours
[2020-05-26] MEDS: AMIODARONE 200 MG TAB PO SCH ×2 (16:50→20:57)
[2020-05-26 17:19] LABS: INR 2.52 (0.90-1.11); Prothrombin Time 25.4 sec (9.9-11.9)
[2020-05-26] MEDS: ATORVASTATIN 10 MG TAB PO SCH (20:57)
[2020-05-27] MEDS: PIPERACILLIN-TAZOBACTAM 3.375 GM in SODIUM CHLORIDE 0.9% 100 ML IVPB SCH ×3 (03:25→20:01)
[2020-05-27] MEDS: SODIUM CHLORIDE 0.9% 1,000 ML IV SCH ×2 (05:43→18:02)
[2020-05-27] MEDS: INSULIN ASPART (NovoLOG) 100 UNIT/ML VIAL SQ SCH ×4 (07:34→21:33)
[2020-05-27] MEDS: IPRATROPIUM-ALBUTEROL 3 ML NEB INHALATION PRN ×3 (07:40→15:20)
[2020-05-27] MEDS: lisinopriL 10 MG TAB PO SCH (07:44)
[2020-05-27] MEDS: FENOFIBRATE 160 MG TAB PO SCH (07:44)
[2020-05-27] MEDS: AMIODARONE 200 MG TAB PO SCH ×2 (07:44→21:37)
[2020-05-27] MEDS: METOPROLOL TARTRATE 50 MG TAB PO SCH ×3 (07:45→21:37)
--- NOTE | 2020-05-27 11:22 | P.PN ---
Subjective HISTORY OF PRESENTING ILLNESS This is a pleasant 74-year-old female past medical history significant for lung cancer, paroxysmal atrial fibrillation, essential hypertension. She follows in the office with Dr Dee. We have been asked to see in consultation for atrial fibrillation. Patient states additionally she had lung cancer on the right side which was treated however had recurrence of what she says is non-small cell lung cancer on the left diagnosed a few months ago. She states she has been undergoing workup for the cancer and is being evaluated for immunotherapy by her oncologist. Unfortunately she has been increasingly symptomatic over the past one week. She states she has noticed increased dyspnea on exertion and therefore was seen by Dr. Dee in the office one week ago. Patient was found to be in A. fib and was felt to be symptomatic from her A. fib and was therefore scheduled for an outpatient cardioversion to take place on 05/31/2020. Unfortunately patient had episode overnight where she felt more short of breath and therefore presented to the emergency department. She admits Dr. Dee had increased her metoprolol from a half a tablet twice a day to a full tablet 3 times a day during her last visit. On admission patient was found to be in A. fib with heart rate 104 bpm. Today she states she feels better and feels somewhat back to her baseline however still short of breath when she exerts herself. She denies any recent fevers, chills. She does have a chronic cough and feels like a tickle in her throat. She did have a chest x-ray performed which showed bilateral infiltrates, unclear if these represent her lung cancer or post obstructive pneumonia. 05/27/2020: Patient seen and examined. Unfortunately patient is feeling worse than yesterday. She did have an issue overnight and states she was unable to lie flat secondary to shortness breath which is a new symptom for her. She states she had to sit up in the chair at bedside. She normally does not have any orthopnea. She has been receiving IV fluids throughout hospitalization as she had been complaining of some lightheadedness at times. She was changed to amiodarone as well as metoprolol 50 mg 3 times a day yesterday and heart rates have been better controlled however the majority of heart rates 80s to 110s. She still does admit to feeling of shortness breath. She also admits to epigastric "bubble" and feels that if she could improve the bubble that she could breathe better. She denies any chest pain or pressure. We did review recent note from office and she did have a recent echocardiogram from 11/22/2019 which showed ejection fraction 60% with moderate mitral regurgitation. Additionally she had a heart catheterization from 12/14/2019 at [facility] which showed normal coronary arteries. REVIEW OF SYSTEMS At the time of my exam: CONSTITUTIONAL: Denies fever or chills. CARDIOVASCULAR: Denies chest pain, +shortness of breath, + orthopnea, PND, +palpitations. RESPIRATORY: + Mild cough. GASTROINTESTINAL: Denies abdominal pain, diarrhea, constipation, nausea or vomiting. MUSCULOSKELETAL: Denies myalgias. NEUROLOGIC: Denies numbness, tingling or weakness. ENDOCRINE: Denies fatigue, weight change, polydipsia or polyurina. GENITOURINARY: Denies burning, hematuria or urgency with micturation. HEMATOLOGIC: Denies history of anemia or bleeding. PHYSICAL EXAMINATION Blood pressure 121/81 heart rate 88 afebrile and maintaining oxygen saturation on 2 L nasal cannula. CONSTITUTIONAL: No apparent distress, obese. HEENT: Head is normocephalic. Pupils are equal, round. Sclerae anicteric. Mucous membranes of the mouth are moist. No JVD. No carotid bruit. CHEST EXAMINATION: Bilateral rhonchi. Mild crackles at bases. No chest wall tenderness is noted on palpation or with deep breathing. HEART EXAMINATION: Irregularly irregular rate and rhythm. S1, S2 heard. +2/6 systolic murmur, no gallops or rub. ABDOMEN: Soft, nontender. Positive bowel sounds. EXTREMITIES: 2+ peripheral pulses, no lower extremity edema and no calf tenderness. NEUROLOGIC EXAMINATION: Patient is awake, alert and oriented x3. ASSESSMENT 1. Acute on chronic respiratory failure likely multifactorial related to lung cancer, possible postobstructive pneumonia and A. fib. Covid 19 negative. 2. Paroxysmal atrial fibrillation, currently atrial fibrillation with mild RVR at times 3. Recurrence of lung cancer, being evaluated for possible immunotherapy 4. Essential hypertension 5. Supratherapeutic INR 6. Moderate mitral regurgitation by echo 11/22/2019 with normal ejection fraction 60% 7. New-onset orthopnea. May be a component of diastolic heart failure. PLAN Unfortunately patient has still not been feeling well and has new onset of orthopnea. There may be a component of heart failure and patient has been receiving IV fluids for her lightheadedness and possible pneumonia however may now have more heart failure symptoms. Patient does have some crackles at bases, no significant JVD seen. We will stop IV fluids and start Lasix 40 mg daily and monitor response. Check 2-D echo. Check labs and check BNP, initially 1420 on presentation. Continue amiodarone. Increase metoprolol to 75 mg 3 times a day. Optimize for possible heart failure and if patient remains in A. fib likely [place]/cardioversion on Friday. Patient with epigastric pain which may be related to GERD. Do not suspect cardiac source, do not suspect acute coronary syndrome with patient having a normal heart catheterization from December 2019. Continue with management of possible pneumonia, possible component of lung cancer. Objective - Vital Signs Vital signs: Vital Signs Temp 97.6 F 05/27/20 05:00 Pulse 88 05/27/20 07:51 Resp 20 05/27/20 05:00 BP 121/81 05/27/20 05:00 Pulse Ox 96 05/27/20 05:00 Intake & Output 05/26/20 05/27/20 05/27/20 18:59 06:59 18:59 Intake Total 1300 1300 Balance 1300 1300 Intake: Intake, IV Titration 1300 800 Amount Piperacillin-Tazobactam 3 100 200 .375 gm In Sodium Chloride 0.9% 100 ml @ 25 mls/hr IVPB Q8H [facility] Rx#: [id number] Sodium Chloride 0.9% 1, 1200 600 000 ml @ 100 mls/hr IV . Q10H [facility] Rx#:[id number] Oral 500 Other: Voiding Method Toilet Toilet # Voids 3 - Labs CBC & Chem 7: 05/26/20 12:11 05/25/20 01:37 Labs: Abnormal Lab Results - Last 24 Hours (Table) 05/25/20 05/26/20 Range/Units 01:37 12:11 PT 25.4 H (9.9-11.9) sec INR 2.52 H (0.90-1.11) Hemoglobin A1c 6.5 H (4.0-6.0) % Microbiology - Last 24 Hours (Table) 05/25/20 04:00 Blood Culture - Preliminary Blood No Growth after 48 hours 05/25/20 04:18 Blood Culture - Preliminary Blood No Growth after 48 hours
[2020-05-27 11:57] LABS: INR 1.77 (0.90-1.11); Prothrombin Time 18.3 sec (9.9-11.9)
--- NOTE | 2020-05-27 12:31 | P.PN ---
Subjective 74-year-old the very pleasant female with known history of lung cancercame in with comments of shortness of breath found to be in atrial fibrillation with rapid ventricular rate. Patient heart rate was about 100 unfortunately she didn't receive any of her heart rate medications today because of which it went up to 130s. Patient is also found to have bilateral infiltratemore pronounced in the right side with a band of atelectasis in the left upper lobe. Patient doesn't have any fever was comparing of cough without any significant sputum pro ductionpatient doesn't have any leukocytosis. Patient may have postobstructive atelectasis although I cannot completely rule out postobstructive pneumonia patient is presently on Zosyn will be discharged on Augmentin if her heart rate comes down after metoprolol and flecainide. 05/26/2020 Patient is looking much better with the heart rate is still high. Patient the metoprolol dose was increased to 50 twice a day yesterday I'll increase it to 50 3 times a day. Cardiology will evaluate the patient. Repeat INR is pending. Patient remains on Zosyn which will continue for now. Blood pressures stable. 05/27/2020 His INR has come down to 1.77 and pharmacy was consulted for Coumadin dosing. Patient was complaining of increased shortness of breath at nighttime along with some orthopnea because of which have a cardiac exam is being obtained BNP is 2360. Patient was started on IV Lasix 40 mg. Constitutional: Denied any fatigue denied any fever. Cardio vascular: denied any chest pain, palpitations Gastrointestinal denied any nausea vomiting Pulmonary: Shortness of breath as mentioned above Neurologic denied any new focal deficits All inpatient medications were reviewed and appropriate changes in these medications as dictated in the interval history and assessment and plan. Objective - Vital Signs Vital signs: Vital Signs Temp 97.6 F 05/27/20 05:00 Pulse 92 05/27/20 11:27 Resp 20 05/27/20 05:00 BP 121/81 05/27/20 05:00 Pulse Ox 96 05/27/20 05:00 Intake & Output 05/26/20 05/27/20 05/27/20 18:59 06:59 18:59 Intake Total 1300 1300 Balance 1300 1300 Intake: Intake, IV Titration 1300 800 Amount Piperacillin-Tazobactam 3 100 200 .375 gm In Sodium Chloride 0.9% 100 ml @ 25 mls/hr IVPB Q8H [facility] Rx#: [id number] Sodium Chloride 0.9% 1, 1200 600 000 ml @ 100 mls/hr IV . Q10H [facility] Rx#:[id number] Oral 500 Other: Voiding Method Toilet Toilet # Voids 3 - Exam PHYSICAL EXAMINATION: GENERAL: The patient is alert and oriented x3, not in any acute distress. Well developed, well nourished. HEENT: Pupils are round and equally reacting to light. EOMI. No scleral icterus. No conjunctival pallor. Normocephalic, atraumatic. No pharyngeal erythema. No thyromegaly. CARDIOVASCULAR: S1 and S2 present. No murmurs, rubs, or gallops, irregularly irregular rhythm. Tachycardic. PULMONARY: Chest is clear to auscultation, no wheezing or crackles. ABDOMEN: Soft, nontender, nondistended, normoactive bowel sounds. No palpable organomegaly. MUSCULOSKELETAL: No joint swelling or deformity. EXTREMITIES: No cyanosis, clubbing, or pedal edema. NEUROLOGICAL: Gross neurological examination did not reveal any focal deficits. SKIN: No rashes. - Labs CBC & Chem 7: 05/26/20 12:11 05/25/20 01:37 Labs: Abnormal Lab Results - Last 24 Hours (Table) 05/25/20 05/26/20 05/27/20 Range/Units 01:37 12:11 07:04 PT 25.4 H 18.3 H (9.9-11.9) sec INR 2.52 H 1.77 H (0.90-1.11) Hemoglobin A1c 6.5 H (4.0-6.0) % Microbiology - Last 24 Hours (Table) 05/25/20 04:00 Blood Culture - Preliminary Blood No Growth after 48 hours 05/25/20 04:18 Blood Culture - Preliminary Blood No Growth after 48 hours Assessment and Plan Plan: Shortness of breath: Most probably secondary to atrial fibrillation with rapid and regular rate can be related to worsening cancer and infiltrate and possible pneumonia. patient will be continued on Zosyn for now. Patient was also complaining of orthopnea because of which are is a concern for heart failure because of which echo is being upgraded at this time although patient clinically doesn't appear to have any JVD. Continue with IV Lasix for now volume overload can be related to IV fluids she received when she was admitted. -Proximal A. fib with rapid ventricular rate: Presently rate controlled continue with the metoprolol 50 3 times a day and the patient was also started on amiodarone 400 twice a day. -possibly a postobstructive pneumonia or atelectasis: Continue with Zosyn for now will be discharged with Augmentin -hypertension: Controlled with present regimen. -Type 2 diabetes mellitus continue with metformin
[2020-05-27] MEDS: FUROSEMIDE 10 MG/ML 4 ML VIAL IV SCH (13:00)
--- NOTE | 2020-05-27 15:51 | ECHOF ---
Referral Reason:LV function MEASUREMENTS -------- HEIGHT: 160.0 cm WEIGHT: 82.1 kg BP: 121/81 IVSd: 1.6 cm (0.6 - 1.1) LVIDd: 3.9 cm (3.9 - 5.3) LVPWd: 1.5 cm (0.6 - 1.1) IVSs: 2.0 cm LVIDs: 2.7 cm LVPWs: 1.6 cm LAESV Index (A-L): 41.38 ml/m Ao Diam: 2.6 cm (2.0 - 3.7) AV Cusp: 1.9 cm (1.5 - 2.6) MV EXCURSION: 14.577 mm (> 18.000) MV EF SLOPE: 50 mm/s (70 - 150) EPSS: 0.7 cm RAP: 20.00 mmHg RVSP: 36.31 mmHg FINDINGS -------- Atrial fibrillation. This was a technically adequate study. The left ventricular size is normal. There is moderate concentric left ventricular hypertrophy. O verall left ventricular systolic function is mildly impaired with, an EF between 45 - 50 %. The RV was not well visualized. LA is severely dilated >40 ml/m2 The right atrium was not well visualized. Interatrial and interventricular septum intact. There is no evidence of aortic regurgitation. There is no evidence of aortic stenosis. [id number] mitral regurgitation is present. Mild tricuspid regurgitation present. There is mild pulmonary hypertension. The right ventricular systolic pressure, as measured by Doppler, is 36.31mmHg. There is no pulmonic regurgitation present. The aortic root size is normal. The inferior vena cava is dilated with poor inspiratory collapse which is consistent with estimated r ight atrial pressure of 20 mmHg. There is no pericardial effusion. CONCLUSIONS -------- 1. The left ventricular size is normal. 2. There is moderate concentric left ventricular hypertrophy. 3. Overall left ventricular systolic function is mildly impaired with, an EF between 45 - 50 %. 4. LA is severely dilated >40 ml/m2 5. [id number] mitral regurgitation is present. 6. Mild tricuspid regurgitation present. 7. There is mild pulmonary hypertension. 8. The right ventricular systolic pressure, as measured by Doppler, is 36.31mmHg. 9. The inferior vena cava is dilated with poor inspiratory collapse which is consistent with estimate d right atrial pressure of 20 mmHg. DRAMATIC DIRECTOR: Nayeli Cao RDCS
[2020-05-27] MEDS ORDERED: WARFARIN 5 MG TAB PO ONE (18:00)
[2020-05-27] MEDS: ATORVASTATIN 10 MG TAB PO SCH (21:37)
[2020-05-28] MEDS: PIPERACILLIN-TAZOBACTAM 3.375 GM in SODIUM CHLORIDE 0.9% 100 ML IVPB SCH ×3 (04:18→21:08)
[2020-05-28 06:03] LABS: Basophils # (A) 0.1 k/uL (0-0.2); Basophils % (A) 1 %; Eosinophils # (A) 0.1 k/uL (0-0.7); Eosinophils % (A) 2 %; HCT 41.5 % (34.0-46.0); HGB 13.7 gm/dL (11.4-16.0); Hypochromasia Slight; Lymphocytes # (A) 0.8 k/uL (1.0-4.8); Lymphocytes % (A) 13 %; MCH 27.2 pg (25.0-35.0); MCV 82.4 fL (80.0-100.0); Mean Platelet Volume 7.4; Monocytes # (A) 0.4 k/uL (0-1.0); Monocytes % (A) 6 %; Neutrophils # (A) 4.8 k/uL (1.3-7.7); Neutrophils % (A) 76 %; Platelet Count 263 k/uL (150-450); RBC 5.04 m/uL (3.80-5.40); RDW 14.5 % (11.5-15.5); WBC 6.3 k/uL (3.8-10.6)
[2020-05-28 09:25] LABS: INR 1.57 (0.90-1.11); Prothrombin Time 16.4 sec (9.9-11.9)
[2020-05-28] MEDS: INSULIN ASPART (NovoLOG) 100 UNIT/ML VIAL SQ SCH ×4 (09:43→21:33)
[2020-05-28 09:44] LABS: African American GFR (CKD) 99.6 (60.0-200.0); Albumin 4.2 g/dL (3.80-4.90); Anion Gap 5.2 mmol/L (4.00-12.00); BUN/Creat Ratio 21.43 Ratio (12.00-20.00); Calcium 9.1 mg/dL (8.7-10.3); Carbon Dioxide 28.8 mmol/L (21.6-31.8); Phosphorus 3.6 mg/dL (2.4-5.1); Potassium 4.4 mmol/L (3.5-5.5)
[2020-05-28] MEDS: FENOFIBRATE 160 MG TAB PO SCH (09:44)
[2020-05-28] MEDS: FUROSEMIDE 10 MG/ML 4 ML VIAL IV SCH ×2 (09:44→21:08)
[2020-05-28] MEDS: lisinopriL 10 MG TAB PO SCH (09:45)
[2020-05-28] MEDS: METOPROLOL TARTRATE 50 MG TAB PO SCH ×3 (09:46→21:07)
[2020-05-28] MEDS: AMIODARONE 200 MG TAB PO SCH ×2 (09:57→21:07)
--- NOTE | 2020-05-28 11:22 | P.PN ---
Subjective 74-year-old the very pleasant female with known history of lung cancercame in with comments of shortness of breath found to be in atrial fibrillation with rapid ventricular rate. Patient heart rate was about 100 unfortunately she didn't receive any of her heart rate medications today because of which it went up to 130s. Patient is also found to have bilateral infiltratemore pronounced in the right side with a band of atelectasis in the left upper lobe. Patient doesn't have any fever was comparing of cough without any significant sputum pro ductionpatient doesn't have any leukocytosis. Patient may have postobstructive atelectasis although I cannot completely rule out postobstructive pneumonia patient is presently on Zosyn will be discharged on Augmentin if her heart rate comes down after metoprolol and flecainide. 05/26/2020 Patient is looking much better with the heart rate is still high. Patient the metoprolol dose was increased to 50 twice a day yesterday I'll increase it to 50 3 times a day. Cardiology will evaluate the patient. Repeat INR is pending. Patient remains on Zosyn which will continue for now. Blood pressures stable. 05/27/2020 His INR has come down to 1.77 and pharmacy was consulted for Coumadin dosing. Patient was complaining of increased shortness of breath at nighttime along with some orthopnea because of which have a cardiac exam is being obtained BNP is 2360. Patient was started on IV Lasix 40 mg. 05/28/2020 Patient's INR is 1.57 today. Pharmacy is dosing Coumadin. Patient still remains hypoxic without oxygen we will give a couple doses of Lasix today see how she is doing. Patient although looks well clinically. Constitutional: Denied any fatigue denied any fever. Cardio vascular: denied any chest pain, palpitations Gastrointestinal denied any nausea vomiting Pulmonary: Shortness of breath as mentioned above Neurologic denied any new focal deficits All inpatient medications were reviewed and appropriate changes in these medications as dictated in the interval history and assessment and plan. Objective - Vital Signs Vital signs: Vital Signs Temp 97.7 F 05/28/20 05:43 Pulse 116 H 05/28/20 08:35 Resp 18 05/28/20 08:35 BP 141/85 05/28/20 05:43 Pulse Ox 92 L 05/28/20 05:43 Intake & Output 05/27/20 05/28/20 05/28/20 18:59 06:59 18:59 Intake Total 1100 Balance 1100 Intake: Oral 1100 Other: Voiding Method Toilet Toilet Toilet # Voids 3 1 2 - Exam PHYSICAL EXAMINATION: GENERAL: The patient is alert and oriented x3, not in any acute distress. Well developed, well nourished. HEENT: Pupils are round and equally reacting to light. EOMI. No scleral icterus. No conjunctival pallor. Normocephalic, atraumatic. No pharyngeal erythema. No thyromegaly. CARDIOVASCULAR: S1 and S2 present. No murmurs, rubs, or gallops, irregularly irregular rhythm. Tachycardic. PULMONARY: Chest is clear to auscultation, no wheezing or crackles. ABDOMEN: Soft, nontender, nondistended, normoactive bowel sounds. No palpable organomegaly. MUSCULOSKELETAL: No joint swelling or deformity. EXTREMITIES: No cyanosis, clubbing, or pedal edema. NEUROLOGICAL: Gross neurological examination did not reveal any focal deficits. SKIN: No rashes. - Labs CBC & Chem 7: 05/28/20 05:38 05/28/20 05:38 Labs: Abnormal Lab Results - Last 24 Hours (Table) 05/27/20 05/28/20 05/28/20 Range/Units 07:04 05:38 05:38 Lymphocytes # 0.8 L (1.0-4.8) k/uL PT 18.3 H 16.4 H (9.9-11.9) sec INR 1.77 H 1.57 H (0.90-1.11) BUN/Creatinine Ratio (12.00-20.00) Ratio Glucose (70-110) mg/dL 05/28/20 Range/Units 05:38 Lymphocytes # (1.0-4.8) k/uL PT (9.9-11.9) sec INR (0.90-1.11) BUN/Creatinine Ratio 21.43 H (12.00-20.00) Ratio Glucose 120 H (70-110) mg/dL Microbiology - Last 24 Hours (Table) 05/25/20 04:00 Blood Culture - Preliminary Blood No Growth after 72 hours 05/25/20 04:18 Blood Culture - Preliminary Blood No Growth after 72 hours Assessment and Plan Plan: Shortness of breath: Most probably secondary to atrial fibrillation with rapid and regular rate can be related to worsening cancer and infiltrate and possible pneumonia. patient will be continued on Zosyn for now. Patient may have a competent of CHF for that may have contributed to her shortness of breath as well as patient the is on 40 IV twice a day of Lasix presently echo was opted which showed decreased EF of around 45-50% -Proximal A. fib with rapid ventricular rate: Presently rate controlled continue with the metoprolol 50 3 times a day and the patient was also started on amiodarone 400 twice a day. Heart rate is bit on the higher side -possibly a postobstructive pneumonia or atelectasis: Continue with Zosyn for now will be discharged with Augmentin -hypertension: Controlled with present regimen. -Type 2 diabetes mellitus continue with metformin
--- NOTE | 2020-05-28 14:44 | P.PN ---
Subjective HISTORY OF PRESENTING ILLNESS This is a pleasant 74-year-old female past medical history significant for lung cancer, paroxysmal atrial fibrillation, essential hypertension. She follows in the office with Dr Dee. We have been asked to see in consultation for atrial fibrillation. Patient states additionally she had lung cancer on the right side which was treated however had recurrence of what she says is non-small cell lung cancer on the left diagnosed a few months ago. She states she has been undergoing workup for the cancer and is being evaluated for immunotherapy by her oncologist. Unfortunately she has been increasingly symptomatic over the past one week. She states she has noticed increased dyspnea on exertion and therefore was seen by Dr. Dee in the office one week ago. Patient was found to be in A. fib and was felt to be symptomatic from her A. fib and was therefore scheduled for an outpatient cardioversion to take place on 05/31/2020. Unfortunately patient had episode overnight where she felt more short of breath and therefore presented to the emergency department. She admits Dr. Dee had increased her metoprolol from a half a tablet twice a day to a full tablet 3 times a day during her last visit. On admission patient was found to be in A. fib with heart rate 104 bpm. Today she states she feels better and feels somewhat back to her baseline however still short of breath when she exerts herself. She denies any recent fevers, chills. She does have a chronic cough and feels like a tickle in her throat. She did have a chest x-ray performed which showed bilateral infiltrates, unclear if these represent her lung cancer or post obstructive pneumonia. 05/28/2020: Patient seen and examined. Patient was started on diuretics without much improvement in her shortness breath. She does still complain of epigastric bubble sensation which she states makes it feel like she cannot take a deep breath and. Her heart rates continue to be 90s to 110s. Her Lopressor was increased to 75 mg 3 times a day yesterday. Echocardiogram was repeated yesterday which shows mildly decreased ejection fraction 45-50%, left atrium severely dilated, RVSP of 36 and dilated IVC. REVIEW OF SYSTEMS At the time of my exam: CONSTITUTIONAL: Denies fever or chills. CARDIOVASCULAR: Denies chest pain, +shortness of breath, + orthopnea, PND, +palpitations. RESPIRATORY: + Mild cough. GASTROINTESTINAL: Denies abdominal pain, diarrhea, constipation, nausea or vomiting. MUSCULOSKELETAL: Denies myalgias. NEUROLOGIC: Denies numbness, tingling or weakness. ENDOCRINE: Denies fatigue, weight change, polydipsia or polyurina. GENITOURINARY: Denies burning, hematuria or urgency with micturation. HEMATOLOGIC: Denies history of anemia or bleeding. PHYSICAL EXAMINATION Blood pressure 121/81 heart rate 88 afebrile and maintaining oxygen saturation on 2 L nasal cannula. CONSTITUTIONAL: No apparent distress, obese. HEENT: Head is normocephalic. Pupils are equal, round. Sclerae anicteric. Mucous membranes of the mouth are moist. No JVD. No carotid bruit. CHEST EXAMINATION: Bilateral rhonchi. Mild crackles at bases. No chest wall tenderness is noted on palpation or with deep breathing. HEART EXAMINATION: Irregularly irregular rate and rhythm. S1, S2 heard. +2/6 systolic murmur, no gallops or rub. ABDOMEN: Soft, nontender. Positive bowel sounds. EXTREMITIES: 2+ peripheral pulses, no lower extremity edema and no calf tenderness. NEUROLOGIC EXAMINATION: Patient is awake, alert and oriented x3. ASSESSMENT 1. Acute on chronic respiratory failure likely multifactorial related to lung cancer, possible postobstructive pneumonia and A. fib. Covid 19 negative. 2. Paroxysmal atrial fibrillation, currently atrial fibrillation with mild RVR at times 3. Recurrence of lung cancer, being evaluated for possible immunotherapy 4. Essential hypertension 5. Supratherapeutic INR 6. Moderate mitral regurgitation by echo 11/22/2019 with normal ejection fraction 60% 7. New-onset orthopnea. May be a component of diastolic heart failure. PLAN Again we have been attempting to treat her atrial fibrillation and likely sergei stolic heart failure however she does not appear to be improving much. We will continue with Lasix. Monitor response. Monitor creatinine closely. Patient may still be symptomatic from her A. fib and we will attempt to facilitate AZ and cardioversion. Keep patient nothing by mouth for tomorrow for possible AZ cardioversion if able. Patient with epigastric pain which may be related to GERD. Do not suspect cardiac source, do not suspect acute coronary syndrome with patient having a normal heart catheterization from December 2019. May consider CT, other workup of abdominal pain. Continue with management of possible pneumonia, possible component of lung cancer. Objective - Vital Signs Vital signs: Vital Signs Temp 97.3 F L 05/28/20 11:00 Pulse 100 05/28/20 11:00 Resp 18 05/28/20 11:00 BP 142/55 05/28/20 11:00 Pulse Ox 92 L 05/28/20 11:00 Intake & Output 05/27/20 05/28/20 05/28/20 18:59 06:59 18:59 Intake Total 1100 Balance 1100 Intake: Oral 1100 Other: Voiding Method Toilet Toilet Toilet # Voids 3 1 2 - Labs CBC & Chem 7: 05/28/20 05:38 05/28/20 05:38 Labs: Abnormal Lab Results - Last 24 Hours (Table) 05/28/20 05/28/20 05/28/20 Range/Units 05:38 05:38 05:38 Lymphocytes # 0.8 L (1.0-4.8) k/uL PT 16.4 H (9.9-11.9) sec INR 1.57 H (0.90-1.11) BUN/Creatinine Ratio 21.43 H (12.00-20.00) Ratio Glucose 120 H (70-110) mg/dL Microbiology - Last 24 Hours (Table) 05/25/20 04:00 Blood Culture - Preliminary Blood No Growth after 72 hours 05/25/20 04:18 Blood Culture - Preliminary Blood No Growth after 72 hours
[2020-05-28] MEDS ORDERED: WARFARIN 5 MG TAB PO ONE (18:00)
[2020-05-28] MEDS: IPRATROPIUM-ALBUTEROL 3 ML NEB INHALATION PRN (20:29)
[2020-05-28] MEDS: ATORVASTATIN 10 MG TAB PO SCH (21:07)
[2020-05-28] MEDS: SODIUM CHLORIDE 0.9% 1,000 ML IV SCH (21:17)
[2020-05-29] MEDS: PIPERACILLIN-TAZOBACTAM 3.375 GM in SODIUM CHLORIDE 0.9% 100 ML IVPB SCH ×3 (04:42→20:59)
[2020-05-29] MEDS: INSULIN ASPART (NovoLOG) 100 UNIT/ML VIAL SQ SCH ×4 (08:16→21:00)
[2020-05-29] MEDS: FUROSEMIDE 10 MG/ML 4 ML VIAL IV SCH (08:17)
[2020-05-29] MEDS: METOPROLOL TARTRATE 50 MG TAB PO SCH ×3 (08:17→20:56)
[2020-05-29] MEDS: lisinopriL 10 MG TAB PO SCH (08:17)
[2020-05-29] MEDS: AMIODARONE 200 MG TAB PO SCH (08:18)
[2020-05-29] MEDS: FENOFIBRATE 160 MG TAB PO SCH (08:18)
[2020-05-29 09:28] LABS: INR 1.5 (0.90-1.11); Prothrombin Time 15.7 sec (9.9-11.9)
[2020-05-29] MEDS ORDERED: SODIUM CHLORIDE 0.9% 1,000 ML IV SCH (09:30)
[2020-05-29] MEDS ORDERED: LIDOCAINE 1% INJ 10MG/ML (20 ML MDV) ONE (10:04)
[2020-05-29] MEDS ORDERED: PROPOFOL 10 MG/ML 20 ML VIAL IV ONE (10:04)
[2020-05-29] MEDS ORDERED: SODIUM CHLORIDE 0.9% 1,000 ML IV ONE (10:23)
--- NOTE | 2020-05-29 11:03 | ECHOT ---
TRANSESOPHAGEAL ECHOCARDIOGRAM INDICATION: Atrial fibrillation and cardioversion. COMPLICATION: None. LEVEL OF SEDATION: Moderate with sedation length of about 10 minutes and that was performed with propofol with IMPRESSION PRINTER in the room. PROCEDURE DESCRIPTION: After obtaining an informed consent, the patient was brought to the endoscopic area. A pulse oximetry and heart rate monitors were attached the patient. The patient was turned into left lateral position. After anesthesia was achieved, we did advance the transesophageal echocardiogram to the mid esophageal where 2D echocardiogram images as well as color Doppler, continuous-wave Doppler and pulse-wave Doppler were performed. The procedure was completed without any complication. FINDINGS: The left atrial appendage appeared to have a thrombus. The left ventricular systolic function appeared to be impaired with EF between 35% to 40%. The right ventricle appeared to be of normal size and function. The left atrium appeared to be severely dilated. The interatrial septum appeared to be intact. The aortic valve is trileaflet valve without stenosis or regurgitation. The mitral valve seems to be thickened with evidence of moderate mitral regurgitation. CONCLUSION: 1. Evidence of left atrial appendage thrombus was identified. 2. Severely dilated left atrium. 3. Intact interatrial septum. 4. Impaired left ventricular function with ejection fraction around 35% to 40%. 5. Thickened mitral valve leaflets with moderate mitral regurgitation. 6. Trileaflet aortic valve without stenosis or regurgitation. 7. Normal tricuspid valve. 8. No evidence of pericardial effusion. MMODL / IJN: [id number] /
[2020-05-29] MEDS: APIXABAN 5 MG TAB PO SCH ×2 (11:28→20:55)
--- NOTE | 2020-05-29 11:36 | P.PN ---
Progress Note - Text Discussed with Dr. Dee Patient underwent a AZ prior to electrical cardioversion she has a left atrial appendage thrombus She was on Coumadin and her INR was greater than 3 The dose was adjusted and subsequently INRs became subtherapeutic for the last 2-3 days only At this point her INRs are below 2.0 and I would recommend switching to ELIQUIS 5 mg twice daily since she developed a left atrial appendage thrombus on Coumadin and she was supratherapeutic upon admission I would also recommend stopping amiodarone and only rate control with anticoagulation Discussed with the nursing care the patient
[2020-05-29] MEDS: IPRATROPIUM-ALBUTEROL 3 ML NEB INHALATION PRN (11:48)
--- NOTE | 2020-05-29 12:38 | CDI ---
Documentation Clarification Form Date: 05/29/2020 12:26:39 PM From: Aparna Cabral CCS, CCDS Admit Date: 05/25/2020 03:50:00 AM Patient Name: Piedad Moses Visit Number: [id number] Discharge Date: ATTENTION: The Clinical Documentation Specialists (CDI) and [facility] Coding Staff appreciate your assistance in clarifying documentation. Please respond to the clarification below the line at the bottom and electronically sign. The CDI & [facility] Coding staff will review the response and follow-up if needed. Please note: Queries are made part of the Legal Health Record. If you have any questions, please contact the author of this message via ITS. Dr. Flaco Narvaez: CHF is documented in the 05/25 ED note as a known history without further specificity. Per the 05/27 Cardiology Progress Note: "There may be a component of heart failure and patient has been receiving IV fluids for her lightheadedness and possible pneumonia however may now have more heart failure symptoms. Optimize for possible heart failure and if patient remains in A. fib likely AZ/Cardioversion on Friday." "New onset orthopnea. May be a component of diastolic heart failure. History/Risk Factors: Heart Failure nos, Hypertension, Lung Cancer, DM II on po meds, Former smoker. Clinical Indicators: Presented to the ED on 05/25 with SOB, found to be in atrial fibrillation with RVR & to have bilateral pneumonia with atelectasis in MELISA. VS 05/25: T 98.3, P 78, R 20, BP 119/98, PO 93 RA BMI: 32.1 LAB: PT 35.6^, INR 3.6^, APTT 39.9^, Na 136*, Cl 108^, CO2 20*, BUN 18^, Glucose 130^, Hgb A1c 6.5^ BNP 1420 CXR 05/25: Bilateral pulmonary infiltrates, most pronounced on the right. Band of atelectasis in the left upper lobe. 05/27 ECHO: Moderate LVH, Systolic mildly impaired with EF between 45-50%, Mild- mod MR, Mild TR, Mild pulmonary hypertension. 05/29 AZ: Left atrial appendage thrombus, Severely dilated left atrium, Impaired left ventricular function w/EF 35-40%, Moderate MR. Treatment: INH Duoneb, IV Cardizem, IV fluid 1,000 mls @ 130 mls/hr q7, IV fluid 500 mls @ 999 mls/hr q31M, IV Azithromycin, IV Zosyn, IV fluid rate 1,000 mls @ 20 mls/hr q24. 05/27: IV Lasix In your professional opinion, can you please clarify the acuity and type of CHF if known? Systolic Heart Failure o Acute o Chronic o Acute on Chronic Diastolic Heart Failure: o Acute o Chronic o Acute on Chronic Combined Systolic and Diastolic o Acute o Chronic o Acute on Chronic Unable to Determine Other, please specify (Last Revision: August 2017) Acute on chronic systolic heart failure MTDD
[2020-05-29 14:20] LABS: Glucose,Whole Blood 122 mg/dL (75-99)
[2020-05-29 14:20] LABS: Glucose,Whole Blood 120 mg/dL (75-99)
--- NOTE | 2020-05-29 14:52 | P.PN ---
Subjective Progress Note Date: 05/29/20 74-year-old the very pleasant female with known history of lung cancercame in with comments of shortness of breath found to be in atrial fibrillation with rapid ventricular rate. Patient heart rate was about 100 unfortunately she didn't receive any of her heart rate medications today because of which it went up to 130s. Patient is also found to have bilateral infiltratemore pronounced in the right side with a band of atelectasis in the left upper lobe. Patient doesn't have any fever was comparing of cough without any significant sputum productionpatient doesn't have any leukocytosis. Patient may have postobstructive atelectasis although I cannot completely rule out postobstructive pneumonia patient is presently on Zosyn will be discharged on Augmentin if her heart rate comes down after metoprolol and flecainide. 05/26/2020 Patient is looking much better with the heart rate is still high. Patient the metoprolol dose was increased to 50 twice a day yesterday I'll increase it to 50 3 times a day. Cardiology will evaluate the patient. Repeat INR is pending. Patient remains on Zosyn which will continue for now. Blood pressures stable. 05/27/2020 His INR has come down to 1.77 and pharmacy was consulted for Coumadin dosing. Patient was complaining of increased shortness of breath at nighttime along with some orthopnea because of which have a cardiac exam is being obtained BNP is 2360. Patient was started on IV Lasix 40 mg. 05/28/2020 Patient's INR is 1.57 today. Pharmacy is dosing Coumadin. Patient still remains hypoxic without oxygen we will give a couple doses of Lasix today see how she is doing. Patient although looks well clinically. 05/29/2020 Patient underwent AZ with Dr. Dee which showed a thrombus noted in the left atrial appendage along with left ventricular systolic function appeared to be impaired with an EF between 35-40% along with severely dilated left atrium. Patient being transitioned to eliquis 5 milligrams twice daily and coverage was already verified through case management. She was on Coumadin which will be discontinued. Patient's amiodarone will also be discontinued and cardiology is following. Will repeat a.m. labs and adjusted Lasix to 40 mg daily. Patient is currently 95% on 2 L via nasal cannula and patient states she was recently just started on oxygen and outpatient setting. Constitutional: Denied any fatigue denied any fever. Cardio vascular: denied any chest pain, palpitations Gastrointestinal denied any nausea vomiting Pulmonary: Shortness of breath as mentioned above although slightly improved today Neurologic denied any new focal deficits All inpatient medications were reviewed and appropriate changes in these medications as dictated in the interval history and assessment and plan. Objective - Vital Signs Vital signs: Vital Signs Temp 98.0 F 05/29/20 05:00 Pulse 92 05/29/20 10:45 Resp 16 05/29/20 10:45 BP 98/50 05/29/20 10:45 Pulse Ox 98 05/29/20 10:45 Intake & Output 05/28/20 05/29/20 05/29/20 18:59 06:59 18:59 Intake Total 240 0 200 Balance 240 0 200 Intake: IV 200 Oral 240 0 Other: Voiding Method Toilet Toilet # Voids 3 3 # Bowel Movements 0 - Exam GENERAL: The patient is alert and oriented x3, not in any acute distress. Well developed, well nourished. HEENT: Pupils are round and equally reacting to light. EOMI. No scleral icterus. No conjunctival pallor. Normocephalic, atraumatic. No pharyngeal erythema. No thyromegaly. CARDIOVASCULAR: S1 and S2 present. No murmurs, rubs, or gallops, irregularly irregular rhythm. Tachycardic. PULMONARY: Chest is clear to auscultation, no wheezing or crackles. ABDOMEN: Soft, nontender, nondistended, normoactive bowel sounds. No palpable organomegaly. MUSCULOSKELETAL: No joint swelling or deformity. EXTREMITIES: No cyanosis, clubbing, or pedal edema. NEUROLOGICAL: Gross neurological examination did not reveal any focal deficits. SKIN: No rashes. - Labs CBC & Chem 7: 05/28/20 05:38 05/28/20 05:38 Labs: Abnormal Lab Results - Last 24 Hours (Table) 05/29/20 Range/Units 05:06 PT 15.7 H (9.9-11.9) sec INR 1.50 H (0.90-1.11) Microbiology - Last 24 Hours (Table) 05/25/20 04:18 Blood Culture - Preliminary Blood No Growth after 96 hours 05/25/20 04:00 Blood Culture - Preliminary Blood No Growth after 96 hours Assessment and Plan Assessment: -Shortness of breath: Most probably secondary to atrial fibrillation with rapid and regular rate can be related to worsening cancer and infiltrate and possible pneumonia. patient will be continued on Zosyn for now. Patient may have a component of CHF for that may have contributed to her shortness of breath as well. Lasix was decreased to 40 mg daily. Patient underwent a AZ showing left atrial appendage thrombus and did not undergo cardioversion. Amiodarone discontinued and patient will be also transition to eliquis 5mg BID as she was on Coumadin and supratherapeutic although still had a thrombus noted. -Proximal A. fib with rapid ventricular rate: Presently rate controlled continue with the metoprolol 50 3 times a day -possibly a postobstructive pneumonia or atelectasis: Continue with Zosyn for now will be discharged with Augmentin -hypertension: Controlled with present regimen. -Type 2 diabetes mellitus continue with metformin Plan: Continue current medications. Transitioning to Eliquis 5mg twice a day and coverage was verified. Will discontinue Coumadin along with amiodarone. Cardiology following. We'll continue to monitor for another 24 hours. Will repeat a.m. labs. Further recommendations to follow. Possible discharge in 24 hours.
[2020-05-29] MEDS: ATORVASTATIN 10 MG TAB PO SCH (20:56)
[2020-05-29] MEDS ORDERED: APIXABAN 5 MG TAB PO SCH (21:00)
[2020-05-30] MEDS: PIPERACILLIN-TAZOBACTAM 3.375 GM in SODIUM CHLORIDE 0.9% 100 ML IVPB SCH (05:00)
[2020-05-30 06:59] LABS: Basophils # (A) 0.1 k/uL (0-0.2); Basophils % (A) 1 %; Eosinophils # (A) 0.1 k/uL (0-0.7); Eosinophils % (A) 2 %; HGB 13.3 gm/dL (11.4-16.0); Hypochromasia Slight; Lymphocytes # (A) 0.8 k/uL (1.0-4.8); Lymphocytes % (A) 12 %; MCH 26.6 pg (25.0-35.0); MCHC 31.8 g/dL (31.0-37.0); MCV 83.8 fL (80.0-100.0); Mean Platelet Volume 7.6; Monocytes # (A) 0.4 k/uL (0-1.0); Monocytes % (A) 7 %; Neutrophils # (A) 4.8 k/uL (1.3-7.7); Neutrophils % (A) 76 %; Platelet Count 250 k/uL (150-450); RBC 5.02 m/uL (3.80-5.40); RDW 14.5 % (11.5-15.5); WBC 6.3 k/uL (3.8-10.6)
[2020-05-30] MEDS: APIXABAN 5 MG TAB PO SCH (07:22)
[2020-05-30] MEDS: FENOFIBRATE 160 MG TAB PO SCH (07:22)
[2020-05-30] MEDS: METOPROLOL TARTRATE 50 MG TAB PO SCH (07:22)
[2020-05-30] MEDS: INSULIN ASPART (NovoLOG) 100 UNIT/ML VIAL SQ SCH (07:23)
[2020-05-30] MEDS ORDERED: lisinopriL 5 MG TAB PO SCH (09:00)
[2020-05-30] MEDS ORDERED: FUROSEMIDE 10 MG/ML 4 ML VIAL IV SCH (09:00)
[2020-05-30 10:48] LABS: INR 1.68 (0.90-1.11); Prothrombin Time 17.5 sec (9.9-11.9)
[2020-05-30 11:00] LABS: African American GFR (CKD) 84.8 (60.0-200.0); Anion Gap 5.7 mmol/L (4.00-12.00); Carbon Dioxide 31.3 mmol/L (21.6-31.8); Non-African American GFR(CKD) 73.1 (60.0-200.0); Potassium 3.9 mmol/L (3.5-5.5)
[2020-05-30 11:52] VITALS: BP 111/66; PULSE 61; RESP 16; TEMP 96.9
--- NOTE | 2020-05-31 00:55 | P.DS ---
Providers Date of admission: 05/25/20 03:50 Expected date of discharge: 05/30/20 Attending physician: Francisco Ramirez Consults: 05/25/20 03:50 Consult Physician Routine Consulting Provider: Madhu Roy Consult Reason/Comments: afib Do you want consulting provider notified?: Yes Primary care physician: Francisco Ramirez [facility] Course: final diagnosis -Shortness of breath: Most probably secondary to atrial fibrillation with rapid and regular rate can be related to worsening cancer and infiltrate and possible pneumonia. -status post AZ showing left atrial appendage thrombus -Proximal A. fib with rapid ventricular rate: Presently rate controlled -possibly a pos-tobstructive pneumonia or atelectasis -hypertension -Type 2 diabetes mellitus continue Discharge disposition Patient is being discharged in a stable condition with guarded prognosis to home. Patient will follow-up with Dr. Ramirez in the outpatient setting upon discharge. Patient will continue on Eliquis 5 mg twice daily. Patient will continue on oral antibiotics in the form of Augmentin twice daily for the next 7 days to complete the course. Patient also instructed to follow-up outpatient with Dr. Dee. Total time taken is greater than 35 minutes. History of present illness This is a 74-year-old female who was recently admitted with shortness of breath and found to be in atrial fibrillation with rapid ventricular rate and was being closely monitored. Cardiology following. Patient underwent AZ which showed EF that had worsened and is 35-40% and also noted to have a thrombus noted in the left atrial appendage and patient did not undergo cardioversion. Patient will continue with metoprolol 75mg three times daily. Patient was on coumadin and supratherapeutic on arrival and was found to have this thrombus and cardiology recommending to transition to Eliquis 5mg twice daily and discontinue the coumadin. Patient will follow up with Dr. dee in one week. Currently no reports of chest pain, shortness of breath, or palpitations. Patient is afebrile. No reports of nausea or vomiting and patient is tolerating diet. Patient will be going home today. On exam vital signs are stable. Temp is 96.9 F, pulse is 61, respirations are 16, blood pressure is 111/66, oxygen saturation is 95 % on 3L via NC. Cardio S1, S2 are muffled. Respiratory system shows diminished breath sounds at the bases with no wheezing or rhonchi noted. Abdomen is soft and nontender. Nervous system shows no focal deficits. Please refer to medication reconciliation sheet for a list of medications. Patient Condition at Discharge: Good Plan - Discharge Summary Discharge Rx Participant: No New Discharge Prescriptions: New Apixaban [Eliquis] 5 mg PO BID 30 Days #60 tab lisinopriL [Zestril] 5 mg PO DAILY 30 Days #30 tab Amoxic-Pot Clav 875-125Mg [Augmentin 875-125] 1 tab PO Q12HR 7 Days #14 tab Albuterol Inhaler [Ventolin Hfa Inhaler] 2 puff INHALATION RT-QID 30 Days #1 puff Continue Fenofibrate 160 mg PO DAILY metFORMIN HCL [Glucophage] 500 mg PO PC-SUPPER Simvastatin [Zocor] 20 mg PO HS Changed Metoprolol Tartrate 75 mg PO TID 30 Days #270 tab Discontinued lisinopriL [Zestril] 20 mg PO DAILY Propafenone [Rythmol] 150 mg PO TID amLODIPine [Norvasc] 5 mg PO DAILY Warfarin [Coumadin] 7.5 mg PO MOWESA Warfarin [Coumadin] 3.75 mg PO SUTUTHFR Discharge Medication List Fenofibrate 160 mg PO DAILY 06/30/19 [History] metFORMIN HCL [Glucophage] 500 mg PO PC-SUPPER 06/30/19 [History] Simvastatin [Zocor] 20 mg PO HS 07/13/19 [History] Apixaban [Eliquis] 5 mg PO BID 30 Days #60 tab 05/29/20 [Rx] Albuterol Inhaler [Ventolin Hfa Inhaler] 2 puff INHALATION RT-QID 30 Days #1 puff 05/30/20 [Rx] Amoxic-Pot Clav 875-125Mg [Augmentin 875-125] 1 tab PO Q12HR 7 Days #14 tab 05/30/20 [Rx] Metoprolol Tartrate 75 mg PO TID 30 Days #270 tab 05/30/20 [Rx] lisinopriL [Zestril] 5 mg PO DAILY 30 Days #30 tab 05/30/20 [Rx] Follow up Appointment(s)/Referral(s): Elias Dee MD [STAFF PHYSICIAN] - 06/08/20 3:45 pm (Appointment is at the [facility] Francisco Ramirez DO [Primary Care Provider] - 06/05/20 1:40 pm () Patient Instructions/Handouts: Metoprolol (By mouth), Lisinopril (By mouth), Albuterol (By breathing), Amoxicillin/Clavulanate Potassium (By mouth), Apixaban (By mouth), A-fib (Atrial Fibrillation) (DC), Pneumonia (DC), Safe Use of Anticoagulants (DC) Activity/Diet/Wound Care/Special Instructions: Activity Limited until follow-up Follow-up with primary care provider upon discharge Follow-up with cardiology in the outpatient setting Continue with anticoagulation in the form of Eliquis Continue current diet Discuss continuing Lasix with primary care and cardiology on follow-up appointment, patient was taking 40 mg daily while hospitalized Discharge Disposition: HOME SELF-CARE
[2020-06-01 05:11] LABS: Glucose,Whole Blood 114 mg/dL (75-99)
[2020-06-01 05:11] LABS: Glucose,Whole Blood 111 mg/dL (75-99)
[2020-06-01 05:12] LABS: Glucose,Whole Blood 171 mg/dL (75-99)
[2020-06-01 05:12] LABS: Glucose,Whole Blood 108 mg/dL (75-99)
[2020-06-01 05:15] LABS: Glucose,Whole Blood 172 mg/dL (75-99)
[2020-06-01 05:15] LABS: Glucose,Whole Blood 106 mg/dL (75-99)
[2020-06-01 05:15] LABS: Glucose,Whole Blood 138 mg/dL (75-99)
[2020-06-01 05:15] LABS: Glucose,Whole Blood 150 mg/dL (75-99)
[2020-06-01 05:17] LABS: Glucose,Whole Blood 117 mg/dL (75-99)
[2020-06-01 05:17] LABS: Glucose,Whole Blood 116 mg/dL (75-99)
[2020-06-01 05:17] LABS: Glucose,Whole Blood 159 mg/dL (75-99)
[2020-06-01 05:17] LABS: Glucose,Whole Blood 209 mg/dL (75-99)
[2020-06-01 05:19] LABS: Glucose,Whole Blood 117 mg/dL (75-99)
[2020-06-01 05:20] LABS: Glucose,Whole Blood 129 mg/dL (75-99)
[2020-06-01 05:20] LABS: Glucose,Whole Blood 140 mg/dL (75-99)
[2020-06-01 05:20] LABS: Glucose,Whole Blood 118 mg/dL (75-99)
[2020-06-01 05:43] LABS: Glucose,Whole Blood 142 mg/dL (75-99)
[2020-06-01 05:43] LABS: Glucose,Whole Blood 120 mg/dL (75-99)
== END 2020-05-30 13:59 | disposition home or self-care (01) | DRG 308 ==
LOC: EC 01:02 → 6NMEDSUR 03:50
PROVIDERS: ADMIT Family Medicine; ATTEND Family Medicine
PROC: B246ZZ4 Ultrasonography of Right and Left Heart, Transesophageal (ICD-10-PCS; principal; 2020-05-29 11:50)
DX: I48.0 Paroxysmal atrial fibrillation (principal); J18.9 Pneumonia, unspecified organism; I50.23 Acute on chronic systolic (congestive) heart failure; J96.21 Acute and chronic respiratory failure with hypoxia; C34.92 Malignant neoplasm of unspecified part of left bronchus or lung; J98.11 Atelectasis; E11.9 Type 2 diabetes mellitus without complications; F41.9 Anxiety disorder, unspecified; I11.0 Hypertensive heart disease with heart failure; I34.0 Nonrheumatic mitral (valve) insufficiency; I45.10 Unspecified right bundle-branch block; I51.3 Intracardiac thrombosis, not elsewhere classified; R79.1 Abnormal coagulation profile; Z20.828 Contact with and (suspected) exposure to other viral communicable diseases; Z79.01 Long term (current) use of anticoagulants; Z79.84 Long term (current) use of oral hypoglycemic drugs; Z79.899 Other long term (current) drug therapy; Z80.0 Family history of malignant neoplasm of digestive organs; Z80.8 Family history of malignant neoplasm of other organs or systems; Z87.891 Personal history of nicotine dependence; Z90.710 Acquired absence of both cervix and uterus; Z88.1 Allergy status to other antibiotic agents; Z88.5 Allergy status to narcotic agent; Z88.2 Allergy status to sulfonamides
CPT/HCPCS: 36415; 71045; 71046; 80048; 80053; 80069; 82550; 83036; 83735; 83880; 84484; 85025; 85610; 85730; 87040; 87070; 87205; 87635; 92960; 93005; 93306; 93312; 93320; 93325; 94640; 96361; 96365; 96375; 99285

== ENCOUNTER → 2020-06-14 | Outpatient (CLI) | payer MEDICARE ==
--- NOTE | 2020-06-14 18:48 | MR ---
EXAMINATION TYPE: MR brain wo/w con DATE OF EXAM: 06/14/2020 COMPARISON: NONE HISTORY: Lung cancer, evaluate for metastatic disease TECHNIQUE: Multiplanar, multisequence images of the brain and brainstem is performed without and with IV contras t, utilizing 8 mL intravenous Gadavist . FINDINGS: Diffusion weighted images demonstrate no evidence of a recent infarct or other diffusion ab normality. There is no new worrisome extra-axial fluid collection. Persistent mild to moderate ventr icular and sulcal prominence. Persistent multifocal areas of T2 hyperintensity scattered throughout t he superficial deep periventricular white matter. Midline structures redemonstrate normal morphology. The craniocervical junction remains within norm al limits. Post contrast images demonstrate no new enhancing intraparenchymal foci or suspicious enh ancement. The dural venous sinuses remain patent. The visualized sinuses are clear and the globes are intact. IMPRESSION: Mild to moderate diffuse cerebral atrophy and moderate to advanced chronic small vessel i schemic change. No significant change from prior MRI studies. No new enhancement or enhancing masses to suggest metastatic disease to the brain is identified.
== END | disposition home or self-care (01) ==
LOC: RADMRIMAIN 16:29
PROVIDERS: ATTEND Internal Medicine Hematology & Oncology
DX: I67.82 Cerebral ischemia (principal); G31.9 Degenerative disease of nervous system, unspecified; C34.91 Malignant neoplasm of unspecified part of right bronchus or lung; C34.12 Malignant neoplasm of upper lobe, left bronchus or lung
CPT/HCPCS: 70553; A9585

== ENCOUNTER 2020-06-15 05:44 | Inpatient (IN) | payer MEDICARE ==
[2020-06-15] MEDS ORDERED: DILTIAZEM DRIP BOLUS FROM BAG 1 MG SOLN IV ONE ×2 (06:11→07:09)
--- NOTE | 2020-06-15 06:18 | ED ---
General Adult HPI <Romeo Victor - Last Filed: 06/15/20 07:36> - General Source: patient, family, RN notes reviewed Mode of arrival: ambulatory Limitations: no limitations <Noah Graham - Last Filed: 06/15/20 07:40> - General Chief complaint: Shortness of Breath Stated complaint: JOSE LUIS Time Seen by Provider: 06/15/20 05:59 - History of Present Illness Initial comments: This is a 74-year-old female presents emergency Department chief complaint of shortness of breath. Patient states she's having worsening shortness breath over the last several weeks but states overnight has greatly worsened. Patient states that she had 2 L of oxygen secondary to COPD, lung cancer. Patient currently sees Dr. Gil and has recently started around on chemotherapy. Patient states that she's had no fevers or chills no significant cough or chest congestion on the usual. Patient does have a history of A. fib on Eliquis. Patient denies any history of congestive heart failure no leg pain no leg swelling noted patient had no went to GI symptoms could nausea vomiting diarrhea. (Noah Graham) - Related Data Home Medications Medication Instructions Recorded Confirmed Fenofibrate 160 mg PO DAILY 06/30/19 06/15/20 metFORMIN HCL [Glucophage] 500 mg PO PC-SUPPER 06/30/19 06/15/20 Simvastatin [Zocor] 20 mg PO HS 07/13/19 06/15/20 Pembrolizumab [Keytruda] 200 mg IVPB Q21D 06/15/20 06/15/20 Previous Rx's Medication Instructions Recorded Apixaban [Eliquis] 5 mg PO BID 30 Days #60 tab 05/29/20 Albuterol Inhaler [Ventolin Hfa 2 puff INHALATION RT-QID 30 Days 05/30/20 Inhaler] #1 puff Metoprolol Tartrate 75 mg PO TID 30 Days #270 tab 05/30/20 lisinopriL [Zestril] 5 mg PO DAILY 30 Days #30 tab 05/30/20 Allergies Allergy/AdvReac Type Severity Reaction Status Date / Time morphine AdvReac Severe Nausea & Verified 06/15/20 07:03 Vomiting cefuroxime [From Ceftin] AdvReac Unknown Nausea Verified 06/15/20 07:03 Sulfa (Sulfonamide AdvReac Unknown Nausea, Verified 06/15/20 07:03 Antibiotics) lightheaded Review of Systems ROS Other: All systems not noted in ROS Statement are negative. <Romeo Victor - Last Filed: 06/15/20 07:36> ROS Other: All systems not noted in ROS Statement are negative. <Noah Graham - Last Filed: 06/15/20 07:40> ROS Statement: Those systems with pertinent positive or pertinent negative responses have been documented in the HPI. Past Medical History Past Medical History: Atrial Fibrillation, Cancer, Diabetes Mellitus, Hypertension Additional Past Medical History / Comment(s): mass left lung Jul 2019, cough, occasional phlegm. History of Any Multi-Drug Resistant Organisms: None Reported Past Surgical History: Back Surgery, Hysterectomy Additional Past Surgical History / Comment(s): Exploratory surgery, plan for lung biopsy Jul 19 2019 Past Anesthesia/Blood Transfusion Reactions: No Reported Reaction Past Psychological History: No Psychological Hx Reported Smoking Status: Former smoker Past Alcohol Use History: Occasional Past Drug Use History: None Reported - Past Family History Mother Family Medical History: Cancer Additional Family Medical History / Comment(s): BRAIN CANCER. Sister(s) Family Medical History: Cancer Additional Family Medical History / Comment(s): BREAST AND PANCREATIC CANCER. <Noah Graham - Last Filed: 06/15/20 07:40> General Exam Limitations: no limitations General appearance: alert, in no apparent distress Head exam: Present: atraumatic, normocephalic, normal inspection Eye exam: Present: normal appearance, PERRL, EOMI. Absent: scleral icterus, conjunctival injection, periorbital swelling ENT exam: Present: normal exam, normal oropharynx, mucous membranes moist, other (Nasal cannula in place) Neck exam: Present: normal inspection, full ROM. Absent: tenderness, meningismus, lymphadenopathy Respiratory exam: Present: respiratory distress (Mild), rales, rhonchi. Absent: normal lung sounds bilaterally, wheezes, stridor Cardiovascular Exam: Present: tachycardia, irregular rhythm, normal heart sounds. Absent: normal rhythm, systolic murmur, diastolic murmur, rubs, gallop, clicks Neurological exam: Present: alert, oriented X3 Skin exam: Present: warm, dry, intact, normal color. Absent: rash <Noah Graham - Last Filed: 06/15/20 07:40> Course <Romeo Victor - Last Filed: 06/15/20 07:36> Vital Signs 06/15/20 06/15/20 06/15/20 05:44 07:00 07:12 Temperature 97.6 F 97.8 F Pulse Rate 144 H 138 H 124 H Respiratory 26 H 18 Rate Blood Pressure 122/86 99/84 O2 Sat by Pulse 90 L 96 Oximetry 06/15/20 07:26 Temperature 97.6 F Pulse Rate 121 H Respiratory 18 Rate Blood Pressure 102/82 O2 Sat by Pulse 95 Oximetry - Reevaluation(s) Reevaluation #1: 06/15/20 07:36 PA supervision: I did personally do a [id number] evaluation the patient. She did present with complaints of shortness of breath as he progressively worse. She was found to be in atrial fibrillation with a rapid ventricular response also on x-ray she does have evidence of increased pulmonary vascular markings and elevated BNP she also does have cancer. She currently is awake alert oriented 3 still in A. fib with RVR on clinical examination diminished breath sounds bilaterally. She is feeling improved from her initial presentation. Patient be admitted I did discuss case with Dr. Ramirez (Romeo Victor) EKG Findings - EKG Comments: EKG Findings:: EKG performed at 6:01 A. fib with RVR rate of 136 QRS 86 QT/QTC 338/508 <Noah Graham - Last Filed: 06/15/20 07:40> Medical Decision Making - Lab Data Result diagrams: 06/15/20 06:15 06/15/20 06:15 <Romeo Victor - Last Filed: 06/15/20 07:36> - Lab Data Result diagrams: 06/15/20 06:15 06/15/20 06:15 <Noah Graham - Last Filed: 06/15/20 07:40> - Lab Data Lab Results 06/15/20 06/15/20 06/15/20 Range/Units 06:15 06:15 06:15 WBC 7.7 (3.8-10.6) k/uL RBC 5.25 (3.80-5.40) m/uL Hgb 13.8 (11.4-16.0) gm/dL Hct 43.2 (34.0-46.0) % MCV 82.3 (80.0-100.0) fL MCH 26.3 (25.0-35.0) pg MCHC 32.0 (31.0-37.0) g/dL RDW 14.1 (11.5-15.5) % Plt Count 287 (150-450) k/uL MPV 8.2 Neutrophils % 80 % Lymphocytes % 13 % Monocytes % 4 % Eosinophils % 1 % Basophils % 1 % Neutrophils # 6.2 (1.3-7.7) k/uL Lymphocytes # 1.0 (1.0-4.8) k/uL Monocytes # 0.3 (0-1.0) k/uL Eosinophils # 0.1 (0-0.7) k/uL Basophils # 0.0 (0-0.2) k/uL Hypochromasia Slight PT 14.1 H (9.0-12.0) sec INR 1.4 H (<1.2) APTT 23.1 (22.0-30.0) sec Sodium 134 L (137-145) mmol/L Potassium 4.4 (3.5-5.1) mmol/L Chloride 103 (98-107) mmol/L Carbon Dioxide 24 (22-30) mmol/L Anion Gap 7 mmol/L BUN 19 H (7-17) mg/dL Creatinine 0.69 (0.52-1.04) mg/dL Est GFR (CKD-EPI)AfAm >90 (>60 ml/min/1.73 sqM) Est GFR (CKD-EPI)NonAf 87 (>60 ml/min/1.73 sqM) Glucose 121 H (74-99) mg/dL Plasma Lactic Acid Praful (0.7-2.0) mmol/L Calcium 8.8 (8.4-10.2) mg/dL Magnesium 2.0 (1.6-2.3) mg/dL Total Bilirubin 0.6 (0.2-1.3) mg/dL AST 50 H (14-36) U/L ALT 21 (4-34) U/L Alkaline Phosphatase 47 (38-126) U/L Troponin I (0.000-0.034) ng/mL NT-Pro-B Natriuret Pep pg/mL Total Protein 6.6 (6.3-8.2) g/dL Albumin 3.9 (3.5-5.0) g/dL 06/15/20 06/15/20 06/15/20 Range/Units 06:15 06:15 06:15 WBC (3.8-10.6) k/uL RBC (3.80-5.40) m/uL Hgb (11.4-16.0) gm/dL Hct (34.0-46.0) % MCV (80.0-100.0) fL MCH (25.0-35.0) pg MCHC (31.0-37.0) g/dL RDW (11.5-15.5) % Plt Count (150-450) k/uL MPV Neutrophils % % Lymphocytes % % Monocytes % % Eosinophils % % Basophils % % Neutrophils # (1.3-7.7) k/uL Lymphocytes # (1.0-4.8) k/uL Monocytes # (0-1.0) k/uL Eosinophils # (0-0.7) k/uL Basophils # (0-0.2) k/uL Hypochromasia PT (9.0-12.0) sec INR (<1.2) APTT (22.0-30.0) sec Sodium (137-145) mmol/L Potassium (3.5-5.1) mmol/L Chloride (98-107) mmol/L Carbon Dioxide (22-30) mmol/L Anion Gap mmol/L BUN (7-17) mg/dL Creatinine (0.52-1.04) mg/dL Est GFR (CKD-EPI)AfAm (>60 ml/min/1.73 sqM) Est GFR (CKD-EPI)NonAf (>60 ml/min/1.73 sqM) Glucose (74-99) mg/dL Plasma Lactic Acid Praful 2.4 H* (0.7-2.0) mmol/L Calcium (8.4-10.2) mg/dL Magnesium (1.6-2.3) mg/dL Total Bilirubin (0.2-1.3) mg/dL AST (14-36) U/L ALT (4-34) U/L Alkaline Phosphatase (38-126) U/L Troponin I <0.012 (0.000-0.034) ng/mL NT-Pro-B Natriuret Pep 2880 pg/mL Total Protein (6.3-8.2) g/dL Albumin (3.5-5.0) g/dL Critical Care Time Critical Care Time: Yes Total Critical Care Time: 35 <Noah Graham - Last Filed: 06/15/20 07:40> Critical Care Time: Total of 35 minutes of critical care time was used to initially evaluate the patient, reviewed past medical history or in labs, EKG and chest x-ray. Patient found to be in A. fib RVR Cardizem was ordered with 10 mg bolus and drip at 5 an hour. Patient EKG has no other acute abnormalities. Patient's BNP is mildly elevated chest x-ray shows chronic changes with small pleural effusion. Patient will be admitted for further treatment and management with cartilage consult case discussed with Dr. Ramirez (Noah Graham) Disposition <Romeo Victor - Last Filed: 06/15/20 07:36> <Noah Graham - Last Filed: 06/15/20 07:40> Clinical Impression: Atrial fibrillation with RVR, Dyspnea, Lung cancer, COPD (chronic obstructive pulmonary disease), Pleural effusion Disposition: ADMITTED IP TO THIS HOSP Condition: Fair Referrals: Francisco Ramirez DO [Primary Care Provider] - 1-2 days
[2020-06-15] MEDS: DILTIAZEM 125 MG in SODIUM CHLORIDE 0.9% 100 ML IV SCH (06:20)
[2020-06-15 06:26] LABS: Basophils % (A) 1 %; Eosinophils # (A) 0.1 k/uL (0-0.7); Eosinophils % (A) 1 %; HCT 43.2 % (34.0-46.0); HGB 13.8 gm/dL (11.4-16.0); Hypochromasia Slight; Lymphocytes % (A) 13 %; MCH 26.3 pg (25.0-35.0); MCV 82.3 fL (80.0-100.0); Mean Platelet Volume 8.2; Monocytes # (A) 0.3 k/uL (0-1.0); Monocytes % (A) 4 %; Neutrophils # (A) 6.2 k/uL (1.3-7.7); Neutrophils % (A) 80 %; Platelet Count 287 k/uL (150-450); RBC 5.25 m/uL (3.80-5.40); RDW 14.1 % (11.5-15.5); WBC 7.7 k/uL (3.8-10.6)
[2020-06-15 06:34] LABS: INR 1.4 (<1.2); Partial Thromboplastin Time 23.1 sec (22.0-30.0); Prothrombin Time 14.1 sec (9.0-12.0)
[2020-06-15 06:37] LABS: ALT 21 U/L (4-34); AST 50 U/L (14-36); African American GFR (CKD) >90 (>60 ml/min/1.73 sqM); Albumin 3.9 g/dL (3.5-5.0); Alkaline Phosphatase 47 U/L (38-126); Anion Gap 7 mmol/L; Blood Urea Nitrogen 19 mg/dL (7-17); Calcium 8.8 mg/dL (8.4-10.2); Carbon Dioxide 24 mmol/L (22-30); Chloride 103 mmol/L (98-107); Glucose 121 mg/dL (74-99); Non-African American GFR(CKD) 87 (>60 ml/min/1.73 sqM); Potassium 4.4 mmol/L (3.5-5.1); Sodium 134 mmol/L (137-145); Total Bilirubin 0.6 mg/dL (0.2-1.3); Total Protein 6.6 g/dL (6.3-8.2)
--- NOTE | 2020-06-15 06:43 | XR ---
EXAMINATION TYPE: XR chest 2V DATE OF EXAM: 06/15/2020 COMPARISON: Chest x-ray May 26, 2020. CT May 18, 2020 HISTORY: Personal history of lung cancer with difficulty in breathing. TECHNIQUE: Frontal and lateral views of the chest are obtained. FINDINGS: There is persistent bilateral perihilar opacities background chronic parenchymal change. N ew small bilateral pleural effusions. Persistent cardiomegaly with atelectatic change aortic knob. Th e osseous structures remain intact. IMPRESSION: Correlate for CHF exacerbation as there is redemonstration of cardiomegaly with new smal l bilateral pleural effusions. Background chronic parenchymal changes and bilateral perihilar opaciti es similar to most recent prior studies.
[2020-06-15] MEDS ORDERED: PEMBROLIZUMAB 100 MG/4 ML IVPB SCH (07:45)
[2020-06-15] MEDS: ALBUTEROL NEBULIZED 2.5 MG/3 ML INHALATION SCH ×4 (10:48→20:18)
[2020-06-15 10:52] LABS: T4, Free (Free Thyroxine) 1.55 ng/dL (0.78-2.19)
[2020-06-15] MEDS: METOPROLOL TARTRATE 25 MG TAB PO SCH ×2 (11:47→20:56)
[2020-06-15] MEDS: PANTOPRAZOLE 40 MG/10 ML VIAL IVP SCH (11:47)
[2020-06-15] MEDS: FUROSEMIDE 10 MG/ML 4 ML VIAL IV SCH (14:05)
--- NOTE | 2020-06-15 14:17 | P.CONS ---
History of Present Illness - Reason for Consult Consult date: 06/15/20 recent treatment for SCLC Requesting physician: Maria Isabel Rodgers - Chief Complaint SOB - History of Present Illness Mrs. Tolentino is a very pleasant female patient of Dr. Hendrix who was initially seen in June 2019 for complaints of persistent cough and cold symptoms st arting in May 2019. Chest x-ray showed a right lower lobe lesion, CT 06/09/19 showed a 2.7 cm mass in the right upper lobe, 1.6 cm right hilar node and focal patchy opacity in the left upper lobe, 1.2 cm indeterminate nodule of the right adrenal gland. 06/25/19, PET scan showed uptake in right lower lobe lesion, right hilar node, left upper lobe density, otherwise negative scan. Second bronchoscopy 07/28/19 pathology was positive for small cell lung cancer. MRI was negative for metastatic disease in the brain. 08/18/27 BUS and staging of the mediastinum. She started carbo/CUSHION SEWER 09/19, had 2 cycles then she started concurrent XRT with cycle#3, completed XRT with 2 additional cycles of carbo platin/CUSHION SEWER-16 (total 4 cycles) end of November/2019. 02/22/20 CT chest revealed improvement in her right lung disease, however, there was increasing consolidation in MELISA. 03/10/20, repeat PET scan revealed significant improvement in RLL disease, however, there was progression in MELISA lesion along with suspicious left hilar and subcarinal nodes. 04/25/20, EBUS and FNA of station 7 was positive for squamous cell carcinoma. PDL-1 could not be done. 05/15/20, CT CAP revealed progression of her disease in the chest. Patient had her first cycle of carbo/Taxol/keytruda, dys 1,8 every 21 days for new primary squamous cell in the contralateral lung 06/13/20. In May patient was scheduled for cardioversion for her A. fib with RVR but, blood clot was found, no procedure, put on eliquis, denies any bleeding. Patient came to the emergency department with complaints of shortness of breath, EKG revealed A. fib with RVR. She was admitted for the same with Cardiology consult. Patient is doing overall well from chemotherapy, she denies any acute treatment side effects. Review of Systems 14 point ROS is negative except as stated in HPI Past Medical History Past Medical History: Atrial Fibrillation, Cancer, Diabetes Mellitus, Hy pertension Additional Past Medical History / Comment(s): mass left lung Jul 2019, cough, occasional phlegm. History of Any Multi-Drug Resistant Organisms: None Reported Past Surgical History: Back Surgery, Hysterectomy Additional Past Surgical History / Comment(s): Exploratory surgery, lung CA Past Anesthesia/Blood Transfusion Reactions: No Reported Reaction Past Psychological History: No Psychological Hx Reported Smoking Status: Former smoker Past Alcohol Use History: Occasional Additional Past Alcohol Use History / Comment(s): STARTED SMOKING AGE 21. Patient states she quit smoking jul 2019 Past Drug Use History: None Reported - Past Family History Mother Family Medical History: Cancer Additional Family Medical History / Comment(s): BRAIN CANCER. Sister(s) Family Medical History: Cancer Additional Family Medical History / Comment(s): BREAST AND PANCREATIC CANCER. Medications and Allergies Home Medications Medication Instructions Recorded Confirmed Type Fenofibrate 160 mg PO DAILY 06/30/19 06/15/20 History metFORMIN HCL [Glucophage] 500 mg PO PC-SUPPER 06/30/19 06/15/20 History Simvastatin [Zocor] 20 mg PO HS 07/13/19 06/15/20 History Apixaban [Eliquis] 5 mg PO BID 30 Days #60 tab 05/29/20 06/15/20 Rx Albuterol Inhaler [Ventolin Hfa 2 puff INHALATION RT-QID 30 Days 05/30/20 06/15/20 Rx Inhaler] #1 puff Metoprolol Tartrate 75 mg PO TID 30 Days #270 tab 05/30/20 06/15/20 Rx lisinopriL [Zestril] 5 mg PO DAILY 30 Days #30 tab 05/30/20 06/15/20 Rx Pembrolizumab [Keytruda] 200 mg IVPB Q21D 06/15/20 06/15/20 History Allergies Allergy/AdvReac Type Severity Reaction Status Date / Time morphine AdvReac Severe Nausea & Verified 06/15/20 07:03 Vomiting cefuroxime [From Ceftin] AdvReac Unknown Nausea Verified 06/15/20 07:03 Sulfa (Sulfonamide AdvReac Unknown Nausea, Verified 06/15/20 07:03 Antibiotics) lightheaded Physical Exam Vitals: Vital Signs Temp Pulse Pulse Resp BP BP Pulse Ox 06/15/20 12:15 132 H 18 115/67 95 06/15/20 11:39 97.7 F 120 H 16 106/75 96 06/15/20 09:43 97.9 F 120 H 18 122/76 95 06/15/20 08:00 97.8 F 115 H 16 115/76 95 06/15/20 07:43 97.9 F 114 H 16 112/60 95 06/15/20 07:26 97.6 F 121 H 18 102/82 95 06/15/20 07:12 97.8 F 124 H 18 99/84 96 06/15/20 07:00 138 H 06/15/20 05:44 97.6 F 144 H 26 H 122/86 90 L Intake and Output 06/14/20 06/15/20 06/15/20 22:59 06:59 14:59 Other: Weight 86.183 kg 86.183 kg - Constitutional General appearance: average body habitus, cooperative, no acute distress - EENT dry mouth Eyes: anicteric sclerae, EOMI ENT: hearing grossly normal, normal oropharynx - Neck Neck: no lymphadenopathy - Respiratory Respiratory: bilateral: diminished - Cardiovascular occasional gallop Rhythm: irregularly irregular Heart sounds: normal: S1, S2 Abnormal Heart Sounds: no systolic murmur, no diastolic murmur, no rub, no S3 Gallop, no S4 Gallop, no click, no other leg Peripheral Edema: bilateral: Trace - Gastrointestinal General gastrointestinal: no absent bowel sounds, no decreased bowel sounds, no distended, no hepatomegaly, no hyperactive bowel sounds, normal bowel sounds, no organomegaly, no rigid, no scaphoid, soft, no splenomegaly, no tenderness, no umbilical hernia, no ventral hernia - Integumentary Integumentary: normal - Neurologic Neurologic: CNII-XII intact - Musculoskeletal Bruising of the left toes from recent fall Musculoskeletal: strength equal bilaterally - Psychiatric Psychiatric: A&O x's 3, appropriate affect, intact judgment & insight Results CBC & Chem 7: 06/15/20 06:15 06/15/20 06:15 Labs: Abnormal Lab Results - Last 24 Hours (Table) 06/15/20 06/15/20 06/15/20 Range/Units 06:15 06:15 06:15 PT 14.1 H (9.0-12.0) sec INR 1.4 H (<1.2) Sodium 134 L (137-145) mmol/L BUN 19 H (7-17) mg/dL Glucose 121 H (74-99) mg/dL Plasma Lactic Acid Praful 2.4 H* (0.7-2.0) mmol/L AST 50 H (14-36) U/L Chest x-ray: report reviewed Assessment and Plan (1) Squamous cell lung cancer Narrative/Plan: New primary lung cancer in contralateral lung. Started on treatment for the same. She had her first carbo/Taxol/keytruda. We will monitor her labs will she is inpatient. Day 8 of treatment due next week but, we will see how patient does medically and when she is discharged. Current Visit: Yes Status: Acute Priority: High Code(s): C34.90 - MALIGNANT NEOPLASM OF UNSP PART OF UNSP BRONCHUS OR LUNG SNOMED Code(s): 849502852 (2) Small cell lung cancer Narrative/Plan: History of. Treated for. Recent brain MRI 06/14 negative for metastases. No other evidence of recurrence of small cell at this time. Current Visit: No Status: Chronic Priority: Medium Code(s): C34.90 - MALIGNANT NEOPLASM OF UNSP PART OF UNSP BRONCHUS OR LUNG SNOMED Code(s): 380014150
--- NOTE | 2020-06-15 16:46 | P.HPIM ---
History of Present Illness H&P Date: 06/15/20 Chief Complaint: Palpitations, shortness of breath this is a 74-year-old female with past medical history of atrial fibrillation, lung cancer, nonsmoker, diabetes mellitus, hypertension and multiple other medical issues presented to the ER with palpitations and worsening shortness of breath since before . Patient was recently admitted over with A. fib with RVR, AZ performed during that visit reporting left atrial appendage thrombus, worsened EF of 35-40%, medically managed. She developed bilateral lower extremity edema, unable to lay flat. States only able to ambulate about 20 feet before she becomes short of breath. Reoccurring lung cancer, with chemo resumed recently this past Friday. Reports she has 2 L nasal cannula O2 at home secondary to lung cancer and COPD. Denies fever, chills, congestion or cough. Denies nausea vomiting or diarrhea. Denies abdominal pain. Anticoagulated on Eliquis. Chest x-ray reported CHF exacerbation with redemonstration of cardiomegaly and small bilateral pleural effusions, chronic parenchymal changes/bilateral perihilar opacities similar to prior study. EKG reported atrial fibrillation with RVR, heart rates up into the 130s. Troponins negative 3 .BNP 2880 .thyroid panel ordered .hematology unremarkable .INR 1.4 , sodium 134 potassium 4.4, magnesium 2, BUN 19, creatinine 0.69. Glucose 121. Lactic acid 2.4, currently down to 1.2.Bolused with Cardizem with drip initiated. Review of Systems ROS Other: All systems not noted in ROS Statement are negative. ROS Statement: Those systems with pertinent positive or pertinent negative responses have been documented in the HPI. Past Medical History Past Medical History: Atrial Fibrillation, Cancer, Diabetes Mellitus, Hyp ertension Additional Past Medical History / Comment(s): mass left lung Jul 2019, cough, occasional phlegm. History of Any Multi-Drug Resistant Organisms: None Reported Past Surgical History: Back Surgery, Hysterectomy Additional Past Surgical History / Comment(s): Exploratory surgery, plan for lung biopsy Jul 19 2019 Past Anesthesia/Blood Transfusion Reactions: No Reported Reaction Past Psychological History: No Psychological Hx Reported Smoking Status: Former smoker Past Alcohol Use History: Occasional Past Drug Use History: None Reported - Past Family History Mother Family Medical History: Cancer Additional Family Medical History / Comment(s): BRAIN CANCER. Sister(s) Family Medical History: Cancer Additional Family Medical History / Comment(s): BREAST AND PANCREATIC CANCER. Medications and Allergies Home Medications Medication Instructions Recorded Confirmed Type Fenofibrate 160 mg PO DAILY 06/30/19 06/15/20 History metFORMIN HCL [Glucophage] 500 mg PO PC-SUPPER 06/30/19 06/15/20 History Simvastatin [Zocor] 20 mg PO HS 07/13/19 06/15/20 History Apixaban [Eliquis] 5 mg PO BID 30 Days #60 tab 05/29/20 06/15/20 Rx Albuterol Inhaler [Ventolin Hfa 2 puff INHALATION RT-QID 30 Days 05/30/20 06/15/20 Rx Inhaler] #1 puff Metoprolol Tartrate 75 mg PO TID 30 Days #270 tab 05/30/20 06/15/20 Rx lisinopriL [Zestril] 5 mg PO DAILY 30 Days #30 tab 05/30/20 06/15/20 Rx Pembrolizumab [Keytruda] 200 mg IVPB Q21D 06/15/20 06/15/20 History Allergies Allergy/AdvReac Type Severity Reaction Status Date / Time morphine AdvReac Severe Nausea & Verified 06/15/20 07:03 Vomiting cefuroxime [From Ceftin] AdvReac Unknown Nausea Verified 06/15/20 07:03 Sulfa (Sulfonamide AdvReac Unknown Nausea, Verified 06/15/20 07:03 Antibiotics) lightheaded Physical Exam Vitals: Vital Signs Temp Pulse Resp BP Pulse Ox 06/15/20 08:00 97.8 F 115 H 16 115/76 95 06/15/20 07:43 97.9 F 114 H 16 112/60 95 06/15/20 07:26 97.6 F 121 H 18 102/82 95 06/15/20 07:12 97.8 F 124 H 18 99/84 96 06/15/20 07:00 138 H 06/15/20 05:44 97.6 F 144 H 26 H 122/86 90 L Intake and Output 06/14/20 06/15/20 06/15/20 22:59 06:59 14:59 Other: Weight 86.183 kg PHYSICAL EXAM: VITAL SIGNS: As above GENERAL: Sitting up on stretcher, respiratory effort increased, short of breath with conversing HEENT: Conjunctivae normal. eyes normal. NECK: No JVD. No thyroid enlargement. No LNs CARDIOVASCULAR: S1, S2 regular..No murmur RESPIRATION: Breath sounds diminished in the bases. No rhonchi or crackles. No bronchial breathing. ABDOMEN: Soft, nontender . No guarding. no masses palpable. No ascites, No hepatosplenomegaly.Bowel sounds heard. LEGS: Positive edema, no clubbing or cyanosis, no calf tenderness PSYCHIATRY: Alert and oriented X3, mood and affect normal. NERVOUS SYSTEM: Cranial N 2-12 grossly normal. Moves all 4 limbs.Diffuse weakness No focal deficits. Strength and sensation grossly intact.. Skin: Warm and dry, no rash Lymphatic system. No LN neck axilla. Results CBC & Chem 7: 06/15/20 06:15 06/15/20 06:15 Labs: Abnormal Lab Results - Last 24 Hours (Table) 06/15/20 06/15/20 06/15/20 Range/Units 06:15 06:15 06:15 PT 14.1 H (9.0-12.0) sec INR 1.4 H (<1.2) Sodium 134 L (137-145) mmol/L BUN 19 H (7-17) mg/dL Glucose 121 H (74-99) mg/dL Plasma Lactic Acid Praful 2.4 H* (0.7-2.0) mmol/L AST 50 H (14-36) U/L Assessment and Plan Assessment: A. fib with RVR in a patient with chronic Paroximal A. fib.recently admitted [facility] with Paroximal A. fib with RVR, possible obstructive pneumonia. AZ performed during that visit reporting left atrial appendage thrombus, worsened EF of 35-40%, Coumadin discontinued, transitioned to Eliquis. Acute CHF exacerbation, systolic dysfunction, EF 35-40% Small bilateral pleural effusions Acute on chronic hypoxic respiratory failure Lactic acidosis History of small cell right Lung CA, received chemo Left lung squamous cell CAD, recently started chemo Plan: Continue current medication regime ,monitoring and symptomatic treatment. Cardiology and oncology consulted. Maintain Cardizem drip, diuretics initiated. Anticoagulated on Eliquis. Protonix for GI prophylaxis. Prognosis guarded given multiple complex medical issues. The impression and plan of care has been dictated as directed. : I performed a history and examination of this patient, discussed the same with the dictator. I agree with the dictator's note ,documented as a scribe. Any additional findings or plans will be noted.
[2020-06-15 16:48] LABS: Glucose,Whole Blood 144 mg/dL (75-99)
[2020-06-15] MEDS: INSULIN ASPART (NovoLOG) 100 UNIT/ML VIAL SQ SCH ×2 (16:50→20:56)
[2020-06-15] MEDS: metFORMIN 500 MG TAB PO SCH (16:59)
[2020-06-15 20:14] LABS: Glucose,Whole Blood 126 mg/dL (75-99)
[2020-06-15] MEDS: ATORVASTATIN 10 MG TAB PO SCH (20:56)
[2020-06-15] MEDS: APIXABAN 5 MG TAB PO SCH (20:56)
[2020-06-16 06:30] LABS: Glucose,Whole Blood 130 mg/dL (75-99)
[2020-06-16] MEDS: INSULIN ASPART (NovoLOG) 100 UNIT/ML VIAL SQ SCH ×4 (06:40→20:51)
[2020-06-16] MEDS: DILTIAZEM 125 MG in SODIUM CHLORIDE 0.9% 100 ML IV SCH (06:43)
[2020-06-16] MEDS: ALBUTEROL NEBULIZED 2.5 MG/3 ML INHALATION SCH ×4 (07:48→20:00)
[2020-06-16 08:19] LABS: Basophils % (A) 1 %; Eosinophils # (A) 0.1 k/uL (0-0.7); Eosinophils % (A) 1 %; HCT 40.6 % (34.0-46.0); HGB 13.1 gm/dL (11.4-16.0); Hypochromasia Slight; Lymphocytes # (A) 0.5 k/uL (1.0-4.8); Lymphocytes % (A) 10 %; MCH 26.7 pg (25.0-35.0); MCHC 32.3 g/dL (31.0-37.0); MCV 82.8 fL (80.0-100.0); Monocytes # (A) 0.1 k/uL (0-1.0); Monocytes % (A) 3 %; Neutrophils # (A) 4.8 k/uL (1.3-7.7); Neutrophils % (A) 86 %; Platelet Count 230 k/uL (150-450); RBC 4.91 m/uL (3.80-5.40); RDW 13.9 % (11.5-15.5); WBC 5.7 k/uL (3.8-10.6)
[2020-06-16 08:43] LABS: African American GFR (CKD) >90 (>60 ml/min/1.73 sqM); Anion Gap 3 mmol/L; Blood Urea Nitrogen 21 mg/dL (7-17); Calcium 8.9 mg/dL (8.4-10.2); Carbon Dioxide 31 mmol/L (22-30); Chloride 100 mmol/L (98-107); Glucose 124 mg/dL (74-99); Non-African American GFR(CKD) 87 (>60 ml/min/1.73 sqM); Potassium 4.6 mmol/L (3.5-5.1); Sodium 134 mmol/L (137-145)
[2020-06-16] MEDS: FENOFIBRATE 160 MG TAB PO SCH (08:57)
[2020-06-16] MEDS: lisinopriL 5 MG TAB PO SCH (08:57)
[2020-06-16] MEDS: PANTOPRAZOLE 40 MG/10 ML VIAL IVP SCH (08:57)
[2020-06-16] MEDS: FUROSEMIDE 10 MG/ML 4 ML VIAL IV SCH ×2 (08:57→16:00)
[2020-06-16] MEDS: APIXABAN 5 MG TAB PO SCH ×2 (08:58→20:51)
[2020-06-16] MEDS ORDERED: METOPROLOL TARTRATE 50 MG TAB PO SCH (09:00)
--- NOTE | 2020-06-16 10:30 | P.PN ---
Subjective Progress Note Date: 06/16/20 this is a 74-year-old female with past medical history of atrial fibrillation, lung cancer, nonsmoker, diabetes mellitus, hypertension and multiple other medical issues presented to the ER with palpitations and worsening shortness of breath since before . Patient was recently admitted over with A. fib with RVR, AZ performed during that visit reporting left atrial appendage thrombus, worsened EF of 35-40%, medically managed. She developed bilateral lower extremity edema, unable to lay flat. States only able to ambulate about 20 feet before she becomes short of breath. Reoccurring lung cancer, with chemo resumed recently this past Friday. Reports she has 2 L nasal cannula O2 at home secondary to lung cancer and COPD. Denies fever, chills, congestion or cough. Denies nausea vomiting or diarrhea. Denies abdominal pain. Anticoagulated on Eliquis. Chest x-ray reported CHF exacerbation with redemonstration of cardiomegaly and small bilateral pleural effusions, chronic p arenchymal changes/bilateral perihilar opacities similar to prior study. EKG reported atrial fibrillation with RVR, heart rates up into the 130s. Troponins negative 3 .BNP 2880 .thyroid panel ordered .hematology unremarkable .INR 1.4 , sodium 134 potassium 4.4, magnesium 2, BUN 19, creatinine 0.69. Glucose 121. Lactic acid 2.4, currently down to 1.2.Bolused with Cardizem with drip initiated. 06/16/2020 Diuresing well on Lasix IV push with 24-hour I&O reporting a negative fluid balance. Creatinine 0.69. Patient feels better ,though oxygen requirements increased up to 3 L ,maintaining O2 sats in the low 90s. Less crackles. Maintained on Cardizem drip, remains in atrial fibrillation uncontrolled with heart rate currently in the 140s, up to 150s during the night. Cardiology consult in place, recommendations pending. Evaluated by oncology with recommendations noted and appreciated. Objective - Vital Signs Vital signs: Vital Signs Temp 97.7 F 06/16/20 03:57 Pulse 110 H 06/16/20 03:57 Resp 18 06/16/20 03:57 BP 118/80 06/16/20 03:57 Pulse Ox 92 L 06/16/20 03:57 Intake & Output 0106/16/20 06/16/20 18:59 06:59 18:59 Intake Total 890 161.917 Output Total 2400 250 Balance -1510 -88.083 Weight 86.183 kg 87.1 kg Intake: IV 10 Diltiazem 125 mg In 10 Sodium Chloride 0.9% 100 ml @ 5 MG/HR 5 mls/hr IV .Q24H [facility] Rx#:[id number] Intake, IV Titration 161.917 Amount Diltiazem 125 mg In 161.917 Sodium Chloride 0.9% 100 ml @ 5 MG/HR 5 mls/hr IV .Q24H [facility] Rx#:[id number] Oral 880 0 Output: Urine 2400 250 Other: # Voids 2 - Exam PHYSICAL EXAM: VITAL SIGNS: As above GENERAL: Alert and oriented 3, Sitting up at side of bed, no acute distress HEENT: Conjunctivae normal. eyes normal. NECK: No JVD. No thyroid enlargement. CARDIOVASCULAR: S1, S2 ,irregular.tachycardic,No murmur. RESPIRATION: Breath sounds diminished in the bases. No rhonchi, less crackles ABDOMEN: Soft, nontender . No guarding. no masses palpable.positive Bowel sounds. LEGS: Decreasing edema, no clubbing or cyanosis, no calf tenderness NERVOUS SYSTEM: Cranial N 2-12 grossly normal. Moves all 4 limbs. No focal deficits.Strength and sensation grossly intact. Skin: Warm and dry, no rash - Labs CBC & Chem 7: 06/16/20 07:48 06/16/20 07:48 Labs: Abnormal Lab Results - Last 24 Hours (Table) 06/15/20 06/15/20 06/16/20 Range/Units 16:47 20:12 06:26 Lymphocytes # (1.0-4.8) k/uL Sodium (137-145) mmol/L Carbon Dioxide (22-30) mmol/L BUN (7-17) mg/dL Glucose (74-99) mg/dL POC Glucose (mg/dL) 144 H 126 H 130 H (75-99) mg/dL 06/16/20 06/16/20 Range/Units 07:48 07:48 Lymphocytes # 0.5 L (1.0-4.8) k/uL Sodium 134 L (137-145) mmol/L Carbon Dioxide 31 H (22-30) mmol/L BUN 21 H (7-17) mg/dL Glucose 124 H (74-99) mg/dL POC Glucose (mg/dL) (75-99) mg/dL Assessment and Plan Assessment: A. fib with RVR in a patient with chronic Paroximal A. fib.recently admitted over [place] with Paroximal A. fib with RVR, possible obstructive pneumonia. T EE performed during that visit reporting left atrial appendage thrombus, worsened EF of 35-40%, Coumadin discontinued, transitioned to Eliquis. 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 Cardiology consult in place, recommendations pending. Maintain Antiarrhythmics, diuretics, anticoagulation. The impression and plan of care has been dictated as directed. : I performed a history and examination of this patient, discussed the same with the dictator. I agree with the dictator's note ,documented as a scribe. Any additional findings or plans will be noted.
[2020-06-16 11:49] LABS: Glucose,Whole Blood 168 mg/dL (75-99)
[2020-06-16] MEDS ORDERED: METOPROLOL TARTRATE 50 MG TAB PO STA (13:15)
--- NOTE | 2020-06-16 13:50 | P.CRDCN ---
History of Present Illness Consult date: 06/16/20 History of present illness: CHIEF COMPLAINT: A. fib with RVR HISTORY OF PRESENT ILLNESS: This is a 74-year-old female with a past medical history significant for lung cancer, COPD with home oxygen, atrial fibrillation, diabetes mellitus, and hypertension. Patient follows in the office with Dr. Dee. We have been asked to see the patient in consultation for A. fib RVR. Patient was hospitalized in May 2020. She was scheduled to undergo AZ and cardioversion. Patient was found to have a left atrial appendage thrombus and cardioversion was canceled. Ejection fraction on AZ was 35-40%. Her ejection fraction based on her echocardiogram at that time was 45-50%. Patient states she has been feeling short of breath and having palpitations since she was discharged from the hospital. She states she is unable to lay flat. She denies chest pain or pressure. DIAGNOSTICS: EKG reveals A. fib with RVR Chest xray correlate for CHF exacerbation as there is cardiomegaly with new small bilateral pleural effusions. Laboratory data: W BC 5.7. Hemoglobin 13.1. Platelet count 2:30. Sodium 134. Potassium 4.6. BUN 21. Creatinine 0.69. Troponin negative 3. BNP 2880. Current home cardiac medications include lisinopril 5 mg daily, Zocor 20 mg daily, metoprolol 75 mg 3 times a day, fenofibrate 160 mg daily, and Eliquis 5 mg twice a day REVIEW OF SYSTEMS: At the time of my exam: CONSTITUTIONAL: Denies fever or chills. HEENT: Denies blurred vision, vision changes, or eye pain. Denies hemoptysis CARDIOVASCULAR: Denies chest pain, orthopnea, PND or palpitations RESPIRATORY: Reports shortness of breath. GASTROINTESTINAL: Denies abdominal pain. Denies nausea or vomiting. HEMATOLOGIC: Denies bleeding disorders. GENITOURINARY: Denies any blood in urine. SKIN: Denies pruitis. Denies rash. PHYSICAL EXAM: VITAL SIGNS: Reviewed. GENERAL: Well-developed in no acute distress. HEENT: Head is normocephalic. Pupils are equal, round. Sclerae anicteric. Mucous membranes of the mouth are moist. Neck supple. No JVD or thyromegaly LUNGS: Respirations even and unlabored. Lungs diminished fine reveals to bilateral bases HEART: Tachycardic. Irregular rate and rhythm. S1 and S2 heard. ABDOMEN: Soft. Nondistended. Nontender. EXTREMITIES: Normal range of motion. No clubbing or cyanosis. Peripheral pulses intact. No lower extremity edema NEUROLOGIC: Awake and alert. Oriented x 3. ASSESSMENT: Paroxysmal atrial fibrillation with RVR, on anticoagulation with Eliquis Left atrial appendage thrombus, status post AZ May 2020 Acute exacerbation of systolic congestive heart failure, EF 35-40% Lung cancer, currently undergoing chemotherapy Hypertension Diabetes mellitus PLAN: No need to repeat echocardiogram as this was performed in May 2020 Increase metoprolol to 150 mg 3 times a day Discontinue IV Cardizem Continue Lasix 40 mg twice a day Monitor kidney function Daily weight Accurate I&O Further recommendations pending patient's course Nurse practitioner note has been reviewed by physician. Signing provider agrees with the documented findings, assessment, and plan of care. Past Medical History Past Medical History: Atrial Fibrillation, Cancer, Diabetes Mellitus, Hypertension Additional Past Medical History / Comment(s): mass left lung Jul 2019, cough, occasional phlegm. History of Any Multi-Drug Resistant Organisms: None Reported Past Surgical History: Back Surgery, Hysterectomy Additional Past Surgical History / Comment(s): Exploratory surgery, plan for lung biopsy Jul 19 2019 Past Anesthesia/Blood Transfusion Reactions: No Reported Reaction Past Psychological History: No Psychological Hx Reported Smoking Status: Former smoker Past Alcohol Use History: Occasional Past Drug Use History: None Reported - Past Family History Mother Family Medical History: Cancer Additional Family Medical History / Comment(s): BRAIN CANCER. Sister(s) Family Medical History: Cancer Additional Family Medical History / Comment(s): BREAST AND PANCREATIC CANCER. Medications and Allergies Home Medications Medication Instructions Recorded Confirmed Type Fenofibrate 160 mg PO DAILY 06/30/19 06/15/20 History metFORMIN HCL [Glucophage] 500 mg PO PC-SUPPER 06/30/19 06/15/20 History Simvastatin [Zocor] 20 mg PO HS 07/13/19 06/15/20 History Apixaban [Eliquis] 5 mg PO BID 30 Days #60 tab 05/29/20 06/15/20 Rx Albuterol Inhaler [Ventolin Hfa 2 puff INHALATION RT-QID 30 Days 05/30/20 06/15/20 Rx Inhaler] #1 puff Metoprolol Tartrate 75 mg PO TID 30 Days #270 tab 05/30/20 06/15/20 Rx lisinopriL [Zestril] 5 mg PO DAILY 30 Days #30 tab 05/30/20 06/15/20 Rx Pembrolizumab [Keytruda] 200 mg IVPB Q21D 06/15/20 06/15/20 History Allergies Allergy/AdvReac Type Severity Reaction Status Date / Time morphine AdvReac Severe Nausea & Verified 06/15/20 07:03 Vomiting cefuroxime [From Ceftin] AdvReac Unknown Nausea Verified 06/15/20 07:03 Sulfa (Sulfonamide AdvReac Unknown Nausea, Verified 06/15/20 07:03 Antibiotics) lightheaded Physical Exam Vitals: Vital Signs Temp Pulse Pulse Resp BP Pulse Ox 06/16/20 12:25 118 H 06/16/20 12:00 97.4 F L 121 H 18 112/77 93 L 06/16/20 08:00 97.5 F L 136 H 18 127/64 92 L 06/16/20 03:57 97.7 F 110 H 18 118/80 92 L 06/15/20 23:58 97.7 F 128 H 18 125/79 93 L 06/15/20 20:19 72 06/15/20 20:00 98.0 F 133 H 18 128/84 93 L 06/15/20 16:00 97.5 F L 120 H 18 113/75 95 06/15/20 15:41 76 06/15/20 15:34 74 Intake and Output 06/15/20 06/16/20 06/16/20 22:59 06:59 14:59 Intake Total 240 161.917 Output Total 1650 Balance -1410 161.917 Intake: Intake, IV Titration 161.917 Amount Diltiazem 125 mg In 161.917 Sodium Chloride 0.9% 100 ml @ 5 MG/HR 5 mls/hr IV .Q24H [facility] Rx#:[id number] Oral 240 0 Output: Urine 1650 Other: # Voids 2 # Bowel Movements 0 Weight 87.1 kg Results 06/16/20 07:48 06/16/20 07:48 CBC 06/16/20 Range/Units 07:48 WBC 5.7 (3.8-10.6) k/uL RBC 4.91 (3.80-5.40) m/uL Hgb 13.1 (11.4-16.0) gm/dL Hct 40.6 (34.0-46.0) % Plt Count 230 (150-450) k/uL Comprehensive Metabolic Panel 06/16/20 Range/Units 07:48 Sodium 134 L (137-145) mmol/L Potassium 4.6 (3.5-5.1) mmol/L Chloride 100 (98-107) mmol/L Carbon Dioxide 31 H (22-30) mmol/L BUN 21 H (7-17) mg/dL Creatinine 0.69 (0.52-1.04) mg/dL Glucose 124 H (74-99) mg/dL Calcium 8.9 (8.4-10.2) mg/dL Current Medications Generic Name Dose Route Start Last Admin Trade Name Freq PRN Reason Stop Dose Admin Albuterol Sulfate 2.5 mg 06/15/20 08:00 06/16/20 12:25 Albuterol Nebulized 2.5 Mg/3 Ml INHALATION 2.5 mg RT-QID [facility] Administration Apixaban 5 mg 06/15/20 21:00 06/16/20 08:58 Apixaban 5 Mg Tab PO 5 mg BID [facility] Administration Atorvastatin Calcium 10 mg 06/15/20 21:00 06/15/20 20:56 Atorvastatin 10 Mg Tab PO 10 mg HS [facility] Administration Fenofibrate 160 mg 06/16/20 09:00 06/16/20 08:57 Fenofibrate 160 Mg Tab PO 160 mg DAILY [facility] Administration Furosemide 40 mg 06/15/20 16:00 06/16/20 08:57 Furosemide 10 Mg/Ml 4 Ml Vial IV 40 mg BID@0900,1600 [facility] Administration Insulin Aspart 0 unit 06/15/20 17:30 06/16/20 11:50 Insulin Aspart (Novolog) 100 Unit/Ml Vial SQ 2 unit ACHS [facility] Administration Protocol Lisinopril 5 mg 06/16/20 09:00 06/16/20 08:57 Lisinopril 5 Mg Tab PO 5 mg DAILY [facility] Administration Metformin HCl 500 mg 06/15/20 18:30 06/15/20 16:59 Metformin 500 Mg Tab PO 500 mg PC-SUPPER [facility] Administration Metoprolol Tartrate 150 mg 06/16/20 16:00 Metoprolol Tartrate 50 Mg Tab PO TID [facility] Pantoprazole Sodium 40 mg 06/17/20 07:30 Pantoprazole 40 Mg Tablet PO AC-BRKFST [facility] Intake and Output 06/15/20 06/16/20 06/16/20 22:59 06:59 14:59 Intake Total 240 161.917 Output Total 1650 Balance -1410 161.917 Intake: Intake, IV Titration 161.917 Amount Diltiazem 125 mg In 161.917 Sodium Chloride 0.9% 100 ml @ 5 MG/HR 5 mls/hr IV .Q24H [facility] Rx#:[id number] Oral 240 0 Output: Urine 1650 Other: # Voids 2 # Bowel Movements 0 Weight 87.1 kg 06/16/20 07:48 06/16/20 07:48
[2020-06-16] MEDS: METOPROLOL TARTRATE 50 MG TAB PO SCH ×2 (16:00→20:51)
[2020-06-16 16:53] LABS: Glucose,Whole Blood 111 mg/dL (75-99)
[2020-06-16] MEDS: metFORMIN 500 MG TAB PO SCH (17:28)
[2020-06-16 20:10] LABS: Glucose,Whole Blood 160 mg/dL (75-99)
--- NOTE | 2020-06-16 20:48 | P.PN ---
Subjective Progress Note Date: 06/16/20 Principal diagnosis: Lung Cancer Labs stable, seen and evaluated by Dr. Bearden today. She looks overall better, still weak Objective - Vital Signs Vital signs: Vital Signs Temp 97.4 F L 06/16/20 12:00 Pulse 118 H 06/16/20 12:25 Resp 18 06/16/20 12:00 BP 112/77 06/16/20 12:00 Pulse Ox 93 L 06/16/20 12:00 Intake & Output 06/15/20 06/16/20 06/16/20 18:59 06:59 18:59 Intake Total 890 161.917 Output Total 2400 250 Balance -1510 -88.083 Weight 86.183 kg 87.1 kg Intake: IV 10 Diltiazem 125 mg In 10 Sodium Chloride 0.9% 100 ml @ 5 MG/HR 5 mls/hr IV .Q24H [facility] Rx#:[id number] Intake, IV Titration 161.917 Amount Diltiazem 125 mg In 161.917 Sodium Chloride 0.9% 100 ml @ 5 MG/HR 5 mls/hr IV .Q24H [facility] Rx#:[id number] Oral 880 0 Output: Urine 2400 250 Other: # Voids 2 # Bowel Movements 0 - Exam - Constitutional General appearance: average body habitus, cooperative, no acute distress - EENT dry mouth Eyes: anicteric sclerae, EOMI ENT: hearing grossly normal, normal oropharynx - Neck Neck: no lymphadenopathy - Respiratory Respiratory: bilateral: diminished - Cardiovascular occasional gallop Rhythm: irregularly irregular Heart sounds: normal: S1, S2 Abnormal Heart Sounds: no systolic murmur, no diastolic murmur, no rub, no S3 Ga llop, no S4 Gallop, no click, no other leg Peripheral Edema: bilateral: Trace - Gastrointestinal General gastrointestinal: no absent bowel sounds, no decreased bowel sounds, no distended, no hepatomegaly, no hyperactive bowel sounds, normal bowel sounds, no organomegaly, no rigid, no scaphoid, soft, no splenomegaly, no tenderness, no umbilical hernia, no ventral hernia - Integumentary Integumentary: normal - Neurologic Neurologic: CNII-XII intact - Musculoskeletal Bruising of the left toes from recent fall Musculoskeletal: strength equal bilaterally - Psychiatric Psychiatric: A&O x's 3, appropriate affect, intact judgment & insight - Labs CBC & Chem 7: 06/16/20 07:48 06/16/20 07:48 Labs: Abnormal Lab Results - Last 24 Hours (Table) 06/15/20 06/15/20 06/16/20 Range/Units 16:47 20:12 06:26 Lymphocytes # (1.0-4.8) k/uL Sodium (137-145) mmol/L Carbon Dioxide (22-30) mmol/L BUN (7-17) mg/dL Glucose (74-99) mg/dL POC Glucose (mg/dL) 144 H 126 H 130 H (75-99) mg/dL 06/16/20 06/16/20 06/16/20 Range/Units 07:48 07:48 11:47 Lymphocytes # 0.5 L (1.0-4.8) k/uL Sodium 134 L (137-145) mmol/L Carbon Dioxide 31 H (22-30) mmol/L BUN 21 H (7-17) mg/dL Glucose 124 H (74-99) mg/dL POC Glucose (mg/dL) 168 H (75-99) mg/dL Assessment and Plan Plan: Chest x-ray: report reviewed Assessment and Plan Squamous cell lung cancer - Recent diagnosis of second primary lung cancer in contralateral lung. - Started on treatment for the same. - She had her first carbo/Taxol/keytruda. - We will monitor her labs will she is inpatient, stable Day 8 of treatment due next week but, we will see how patient does medically and when she is discharged. - Plan for re-eval prior to next treatment as outpt by primary oncologist Current Visit: Yes Status: Acute Priority: High Code(s): C34.90 - MALIGNANT NEOPLASM OF UNSP PART OF UNSP BRONCHUS OR LUNG SNOMED Code(s): 025497323 Small cell lung cancer - History of limited stage. Treated for. - Recent brain MRI performed on 06/14/20 negative for metastases. No other evidence of recurrence of small cell at this time. Current Visit: No Status: Chronic Priority: Medium Code(s): C34.90 - MALIGNANT NEOPLASM OF UNSP PART OF UNSP BRONCHUS OR LUNG SNOMED Code(s): 601458792 Physician Attest: I have completed the full history and physical and developed the above impression and plan, agree with dictation from Marixa Perrin NP. Dictated as a scribe.
[2020-06-16] MEDS: ATORVASTATIN 10 MG TAB PO SCH (20:51)
[2020-06-17 06:15] LABS: Glucose,Whole Blood 133 mg/dL (75-99)
[2020-06-17] MEDS: INSULIN ASPART (NovoLOG) 100 UNIT/ML VIAL SQ SCH ×4 (06:48→20:10)
[2020-06-17] MEDS: PANTOPRAZOLE 40 MG TABLET PO SCH (06:50)
[2020-06-17] MEDS: ALBUTEROL NEBULIZED 2.5 MG/3 ML INHALATION SCH ×4 (07:43→21:09)
[2020-06-17 07:59] LABS: African American GFR (CKD) >90 (>60 ml/min/1.73 sqM); Anion Gap 7 mmol/L; Blood Urea Nitrogen 25 mg/dL (7-17); Calcium 9.3 mg/dL (8.4-10.2); Carbon Dioxide 31 mmol/L (22-30); Chloride 96 mmol/L (98-107); Glucose 127 mg/dL (74-99); Non-African American GFR(CKD) >90 (>60 ml/min/1.73 sqM); Potassium 4.6 mmol/L (3.5-5.1); Sodium 134 mmol/L (137-145)
[2020-06-17 08:11] LABS: Basophils % (A) 1 %; Eosinophils # (A) 0.1 k/uL (0-0.7); Eosinophils % (A) 1 %; HCT 44.7 % (34.0-46.0); HGB 13.7 gm/dL (11.4-16.0); Hypochromasia Moderate; Lymphocytes # (A) 0.7 k/uL (1.0-4.8); Lymphocytes % (A) 11 %; MCH 25.8 pg (25.0-35.0); MCHC 30.7 g/dL (31.0-37.0); MCV 84.1 fL (80.0-100.0); Mean Platelet Volume 8.4; Monocytes # (A) 0.1 k/uL (0-1.0); Monocytes % (A) 2 %; Neutrophils # (A) 5.3 k/uL (1.3-7.7); Neutrophils % (A) 85 %; Platelet Count 265 k/uL (150-450); RBC 5.32 m/uL (3.80-5.40); RDW 13.9 % (11.5-15.5); WBC 6.3 k/uL (3.8-10.6)
[2020-06-17] MEDS: FENOFIBRATE 160 MG TAB PO SCH (08:28)
[2020-06-17] MEDS: FUROSEMIDE 10 MG/ML 4 ML VIAL IV SCH ×2 (08:28→16:11)
[2020-06-17] MEDS: METOPROLOL TARTRATE 50 MG TAB PO SCH ×3 (08:28→21:51)
[2020-06-17] MEDS: APIXABAN 5 MG TAB PO SCH ×2 (08:28→20:10)
[2020-06-17 12:00] LABS: Glucose,Whole Blood 115 mg/dL (75-99)
--- NOTE | 2020-06-17 13:56 | P.PN ---
Subjective On-call hospitalist covering Dr. Ramirez This is a pleasant 74 years old female with multiple medical problems as below, he has significant history of lung cancer and she follows up with Dr. Gil, her next appointment for chemotherapy next week. Presents this time with dyspnea related toatrial fibrillation and rapid ventricular rate also she has left atrial thrombosis and she is covered currently with Eliquis. Cardiology evaluated the patient, her metoprolol was increased to 150 mg 3 times a day. Today she feels better but not back to normal, she has especially exertional dyspnea, also she is on 2 L of oxygen at home on consultation is 3.5 L related to acute hypoxic respiratory failure secondary to systolic CHF. She still tachycardic around 112, rest of vital signs and labs were unremarkable Echocardiogram from one month ago showing ejection fraction of 45-50% acute on chronic systolic CHF with ejection fraction of 45-50% CONSTITUTIONAL: No fever, no malaise, no fatigue. HEENT: No recent visual problems or hearing problems. Denied any sore throat. CARDIOVASCULAR: No orthopnea, PND, no palpitations, no syncope. PULMONARY: No small tenderness no cough, no hemoptysis. GASTROINTESTINAL: No diarrhea, no nausea, no vomiting, no abdominal pain. Normoactive bowel sounds. NEUROLOGICAL: No headaches, no weakness, no numbness. HEMATOLOGICAL: Denies any bleeding or petechiae. Active Medications Generic Name Dose Route Start Last Admin Trade Name Freq PRN Reason Stop Dose Admin Albuterol Sulfate 2.5 mg 06/15/20 08:00 06/17/20 10:51 Albuterol Nebulized 2.5 Mg/3 Ml INHALATION 2.5 mg RT-QID ELSIE Administration Apixaban 5 mg 06/15/20 21:00 06/17/20 08:28 Apixaban 5 Mg Tab PO 5 mg BID ELSIE Administration Atorvastatin Calcium 10 mg 06/15/20 21:00 06/16/20 20:51 Atorvastatin 10 Mg Tab PO 10 mg HS ELSIE Administration Fenofibrate 160 mg 06/16/20 09:00 06/17/20 08:28 Fenofibrate 160 Mg Tab PO 160 mg DAILY ELSIE Administration Furosemide 40 mg 06/15/20 16:00 06/17/20 08:28 Furosemide 10 Mg/Ml 4 Ml Vial IV 40 mg BID@0900,1600 ELSIE Administration Insulin Aspart 0 unit 06/15/20 17:30 06/17/20 12:28 Insulin Aspart (Novolog) 100 Unit/Ml Vial SQ Not Given ACHS [facility] Protocol Lisinopril 5 mg 06/16/20 09:00 06/16/20 08:57 Lisinopril 5 Mg Tab PO 5 mg DAILY ELSIE Administration Metformin HCl 500 mg 06/15/20 18:30 06/16/20 17:28 Metformin 500 Mg Tab PO 500 mg PC-SUPPER ELSIE Administration Metoprolol Tartrate 150 mg 06/16/20 16:00 06/17/20 08:28 Metoprolol Tartrate 50 Mg Tab PO 150 mg TID ELSIE Administration Pantoprazole Sodium 40 mg 06/17/20 07:30 06/17/20 06:50 Pantoprazole 40 Mg Tablet PO 40 mg [id number] ELSIE Administration Objective - Vital Signs Vital signs: Vital Signs Temp 98.4 F 06/17/20 08:00 Pulse 126 H 06/17/20 12:00 Resp 20 06/17/20 12:00 BP 110/70 06/17/20 12:00 Pulse Ox 96 06/17/20 12:00 Intake & Output 06/16/20 06/17/20 06/17/20 18:59 06:59 18:59 Intake Total 480 240 Balance 480 240 Weight 87.1 kg 85.4 kg Intake: Oral 480 240 Other: # Bowel Movements 0 - Labs CBC & Chem 7: 06/17/20 07:14 06/17/20 07:14 Labs: Abnormal Lab Results - Last 24 Hours (Table) 06/16/20 06/16/20 06/17/20 Range/Units 16:52 20:08 06:14 MCHC (31.0-37.0) g/dL Lymphocytes # (1.0-4.8) k/uL Sodium (137-145) mmol/L Chloride (98-107) mmol/L Carbon Dioxide (22-30) mmol/L BUN (7-17) mg/dL Glucose (74-99) mg/dL POC Glucose (mg/dL) 111 H 160 H 133 H (75-99) mg/dL 06/17/20 06/17/20 06/17/20 Range/Units 07:14 07:14 11:49 MCHC 30.7 L (31.0-37.0) g/dL Lymphocytes # 0.7 L (1.0-4.8) k/uL Sodium 134 L (137-145) mmol/L Chloride 96 L (98-107) mmol/L Carbon Dioxide 31 H (22-30) mmol/L BUN 25 H (7-17) mg/dL Glucose 127 H (74-99) mg/dL POC Glucose (mg/dL) 115 H (75-99) mg/dL Assessment and Plan Assessment: Atrial fibrillation with RVR, on Eliquis Acute systolic CHF with ejection fraction 45-50% Acute on chronic hypoxic respiratory failure history of left atrial appendage thrombosis Left lung squamous cell CA, getting chemotherapy as an outpatient Plan: This is a pleasant 74 years old female who presents with CHF and A. fib on the top of her lung cancer. Continue with metoprolol, continue with IV Lasix. Continue with Eliquis. Follow-up recommendation by brush clearer surveying. Continue with oxygen as needed. Pain management. Pulmonary consult. Hematology/oncology on the case and therefore to continue with treatment and follow-up as an outpatient Labs and medication were reviewed.. Continue same treatment. Continue with symptomatic treatment. Resume home medication. Monitor lytes and vitals. DVT and GI prophylaxis. Further recommendationsas per clinical course of the patient DVT prophylaxis: Eliquis GI Prophylaxis: Ppi PT/OT: Pending Prognosis is guarded
--- NOTE | 2020-06-17 14:05 | P.PN ---
<Teresa Kline - Last Filed: 06/17/20 14:01> Subjective This is a pleasant 74-year-old female past medical history significant for lung cancer, COPD on home oxygen, paroxysmal atrial fibrillation on Eliquis, diabetes mellitus and hypertension. She follows in the office with Dr. Dee. She continues to feel short of breath. Telemetry tracings reveal ongoing atrial fibrillation with variable ventricular rates. Blood pressure 110/70 heart rate 126 afebrile maintaining oxygen saturation on nasal cannula. Laboratory data reviewed, sodium 134, potassium 4.6 and creatinine 0.61. Currently maintained on Eliquis 5 mg twice a day, atorvastatin 10 mg at bedtime, Lasix 40 mg IV twice a day, lisinopril 5 mg daily and metoprolol 150 mg 3 times a day. GENERAL: Well-appearing, well-nourished and in no acute distress. NECK: Supple without JVD or thyromegaly. LUNGS: Breath sounds clear to auscultation bilaterally. Respiration equal and unlabored. No wheezes, rales or rhonchi. HEART: Irregular rate and rhythm with systolic ejection murmur, no rubs or gallops. S1 and S2 heard. EXTREMITIES: Normal range of motion, no edema. No clubbing or cyanosis. Peripheral pulses intact. ASSESSMENT Paroxysmal atrial fibrillation with rapid ventricular rate Acute exacerbation of systolic heart failure, ejection fraction 35-40% Lung cancer currently undergoing chemotherapy Hypertension Dyslipidemia Diabetes mellitus PLAN Add digoxin 125 g daily for rate control. Continue beta blockers and Eliquis for thromboembolic protection. Nurse Practitioner note has been reviewed, I agree with a documented findings and plan of care. Patient was seen and examined. Objective - Vital Signs Vital signs: Vital Signs Temp 98.4 F 06/17/20 08:00 Pulse 126 H 06/17/20 12:00 Resp 20 06/17/20 12:00 BP 110/70 06/17/20 12:00 Pulse Ox 96 06/17/20 12:00 Intake & Output 06/16/20 06/17/20 06/17/20 18:59 06:59 18:59 Intake Total 480 240 Balance 480 240 Weight 87.1 kg 85.4 kg Intake: Oral 480 240 Other: # Bowel Movements 0 - Labs CBC & Chem 7: 06/17/20 07:14 06/17/20 07:14 Labs: Abnormal Lab Results - Last 24 Hours (Table) 06/16/20 06/16/20 06/17/20 Range/Units 16:52 20:08 06:14 MCHC (31.0-37.0) g/dL Lymphocytes # (1.0-4.8) k/uL Sodium (137-145) mmol/L Chloride (98-107) mmol/L Carbon Dioxide (22-30) mmol/L BUN (7-17) mg/dL Glucose (74-99) mg/dL POC Glucose (mg/dL) 111 H 160 H 133 H (75-99) mg/dL 06/17/20 06/17/20 06/17/20 Range/Units 07:14 07:14 11:49 MCHC 30.7 L (31.0-37.0) g/dL Lymphocytes # 0.7 L (1.0-4.8) k/uL Sodium 134 L (137-145) mmol/L Chloride 96 L (98-107) mmol/L Carbon Dioxide 31 H (22-30) mmol/L BUN 25 H (7-17) mg/dL Glucose 127 H (74-99) mg/dL POC Glucose (mg/dL) 115 H (75-99) mg/dL <Flaco Narvaez - Last Filed: 06/17/20 15:15> Subjective We will do IV Digoxin load and PO tomorrow. Objective - Vital Signs Vital signs: Vital Signs Temp 98.4 F 06/17/20 08:00 Pulse 126 H 06/17/20 12:00 Resp 20 06/17/20 12:00 BP 110/70 06/17/20 12:00 Pulse Ox 96 06/17/20 12:00 Intake & Output 06/16/20 06/17/20 06/17/20 18:59 06:59 18:59 Intake Total 480 480 Balance 480 480 Weight 87.1 kg 85.4 kg Intake: Oral 480 480 Other: # Bowel Movements 0 - Labs CBC & Chem 7: 06/17/20 07:14 06/17/20 07:14 Labs: Abnormal Lab Results - Last 24 Hours (Table) 06/16/20 06/16/20 06/17/20 Range/Units 16:52 20:08 06:14 MCHC (31.0-37.0) g/dL Lymphocytes # (1.0-4.8) k/uL Sodium (137-145) mmol/L Chloride (98-107) mmol/L Carbon Dioxide (22-30) mmol/L BUN (7-17) mg/dL Glucose (74-99) mg/dL POC Glucose (mg/dL) 111 H 160 H 133 H (75-99) mg/dL 06/17/20 06/17/20 06/17/20 Range/Units 07:14 07:14 11:49 MCHC 30.7 L (31.0-37.0) g/dL Lymphocytes # 0.7 L (1.0-4.8) k/uL Sodium 134 L (137-145) mmol/L Chloride 96 L (98-107) mmol/L Carbon Dioxide 31 H (22-30) mmol/L BUN 25 H (7-17) mg/dL Glucose 127 H (74-99) mg/dL POC Glucose (mg/dL) 115 H (75-99) mg/dL
[2020-06-17] MEDS ORDERED: DIGOXIN 125 MCG TAB PO SCH (14:15)
[2020-06-17] MEDS ORDERED: DIGOXIN 250 MCG/ML 2 ML AMP IVP STA (15:20)
--- NOTE | 2020-06-17 15:34 | PN ---
PROGRESS NOTE DATE OF SERVICE: June 17, 2020. CHIEF COMPLAINT: Tired. Piedad is seen today as a followup. She feels tired. She still has exertional dyspnea. Otherwise she feels okay. No nausea or vomiting. No melena, hematochezia, hematuria or hemoptysis. Her current medication reviewed in her electronic medical record. PHYSICAL EXAMINATION: She is alert and oriented x3. She does not appear to be in acute distress. Well developed, well nourished. VITAL SIGNS: Pulse is 116 and regular, respirations 20, blood pressure 110/70. Pulse ox 96 percent on nasal 3 L nasal cannula. HEENT: Normocephalic, atraumatic. Oral mucosa intact. NECK: Supple. CHEST: Equal expansion bilaterally. LUNGS are clear. HEART is irregular and tachy. ABDOMEN: Soft. No tenderness. EXTREMITIES are no edema. LABORATORY DATA: WBC are 6.0, hemoglobin 13.7, hematocrit 44.7, the platelets are 265. Sodium 134, potassium 4.6, chloride 96, CO2 is 31, BUN is 25, creatinine 0.6. IMPRESSION: 1. 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 She is started on the combination of chemo immunotherapy with which she is tolerating reasonably well. 2. 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 3. Atrial fibrillation with rapid ventricular response. RECOMMENDATIONS: 1. The patient has been evaluated by Cardiology and there is a possibility to repeat AZ next week and consider CT cardioversion if there is no thrombus. 2. In regard to her systemic treatment for squamous cell lung carcinoma, this will be put on hold until her atrial fibrillation and rapid ventricular response rate under control. The above was discussed with the patient. I have answered her questions. MMODL / IJN: [id number] /
[2020-06-17] MEDS: lisinopriL 5 MG TAB PO SCH (15:58)
[2020-06-17 17:06] LABS: Glucose,Whole Blood 149 mg/dL (75-99)
[2020-06-17] MEDS: metFORMIN 500 MG TAB PO SCH (17:26)
[2020-06-17 20:03] LABS: Glucose,Whole Blood 121 mg/dL (75-99)
[2020-06-17] MEDS: ATORVASTATIN 10 MG TAB PO SCH (20:09)
[2020-06-17] MEDS: DIGOXIN 250 MCG/ML 2 ML AMP IVP SCH (20:10)
[2020-06-18] MEDS: DIGOXIN 250 MCG/ML 2 ML AMP IVP SCH (03:19)
[2020-06-18 06:20] LABS: Glucose,Whole Blood 110 mg/dL (75-99)
[2020-06-18] MEDS: INSULIN ASPART (NovoLOG) 100 UNIT/ML VIAL SQ SCH ×4 (06:23→20:24)
[2020-06-18] MEDS: PANTOPRAZOLE 40 MG TABLET PO SCH (06:42)
[2020-06-18] MEDS: ALBUTEROL NEBULIZED 2.5 MG/3 ML INHALATION SCH ×4 (07:25→19:28)
[2020-06-18] MEDS: APIXABAN 5 MG TAB PO SCH ×2 (08:41→20:23)
[2020-06-18] MEDS: FUROSEMIDE 10 MG/ML 4 ML VIAL IV SCH ×2 (08:41→17:09)
[2020-06-18] MEDS: METOPROLOL TARTRATE 50 MG TAB PO SCH ×3 (08:41→20:23)
[2020-06-18] MEDS: lisinopriL 5 MG TAB PO SCH (08:41)
[2020-06-18] MEDS: FENOFIBRATE 160 MG TAB PO SCH (08:41)
[2020-06-18 08:55] LABS: African American GFR (CKD) >90 (>60 ml/min/1.73 sqM); Anion Gap 6 mmol/L; Blood Urea Nitrogen 22 mg/dL (7-17); Calcium 9.4 mg/dL (8.4-10.2); Carbon Dioxide 32 mmol/L (22-30); Chloride 95 mmol/L (98-107); Glucose 179 mg/dL (74-99); Magnesium 1.7 mg/dL (1.6-2.3); Non-African American GFR(CKD) 87 (>60 ml/min/1.73 sqM); Potassium 4.3 mmol/L (3.5-5.1); Sodium 133 mmol/L (137-145)
--- NOTE | 2020-06-18 09:59 | P.PN ---
Subjective On-call hospitalist covering Dr. Ramirez This is a pleasant 74 years old female with multiple medical problems as below, he has significant history of lung cancer and she follows up with Dr. Gil, her next appointment for chemotherapy next week. Presents this time with dyspnea related toatrial fibrillation and rapid ventricular rate also she has left atrial thrombosis and she is covered currently with Eliquis. Cardiology evaluated the patient, her metoprolol was increased to 150 mg 3 times a day. Today she feels better but not back to normal, she has especially exertional dyspnea, also she is on 2 L of oxygen at home on consultation is 3.5 L related to acute hypoxic respiratory failure secondary to systolic CHF. She still tachycardic around 112, rest of vital signs and labs were unremarkable Echocardiogram from one month ago showing ejection fraction of 45-50% acute on chronic systolic CHF with ejection fraction of 45-50% 06/18/2019 This is a pleasant 74 years old female with lung cancer undergoing chemotherapy who presents to us with A. fib and systolic CHF with ejection fraction of 45- 50%, she is on Lasix 40 mg twice daily and today she feels better compared to yesterday when also she had exertional dyspnea. Patient walking in the room appropriately with no difficulties. And she is saturating 95% on 3 L oxygen via nasal cannula. [employer] Salesperson on the case will increase her metoprolol 2050 mg 3 times a day and digoxin was added, this morning heart rate is 101-116. Showing improvement. There is documentation patient might undergo AZ probe logistics team lead for possible cardioversion later on this week. Oncologist evaluated the patient and recommended to hold chemotherapy until cardiac problems Stabilized. Creatinine normal at sodium 133. Magnesium 1.7. Sugar controlled Patient remains on Lasix, Eliquis, digoxin and metoprolol Dr. Ramirez team will resume the care of the patient tomorrow Review of systems CONSTITUTIONAL: No fever, no malaise, no fatigue. HEENT: No recent visual problems or hearing problems. Denied any sore throat. CARDIOVASCULAR: No orthopnea, PND, no palpitations, no syncope. PULMONARY: No small tenderness no cough, no hemoptysis. GASTROINTESTINAL: No diarrhea, no nausea, no vomiting, no abdominal pain. Normoactive bowel sounds. NEUROLOGICAL: No headaches, no weakness, no numbness. HEMATOLOGICAL: Denies any bleeding or petechiae. Active Medications Generic Name Dose Route Start Last Admin Trade Name George PRN Reason Stop Dose Admin Albuterol Sulfate 2.5 mg 06/15/20 08:00 06/17/20 10:51 Albuterol Nebulized 2.5 Mg/3 Ml INHALATION 2.5 mg RT-QID ELSIE Administration Apixaban 5 mg 06/15/20 21:00 06/17/20 08:28 Apixaban 5 Mg Tab PO 5 mg BID ELSIE Administration Atorvastatin Calcium 10 mg 06/15/20 21:00 06/16/20 20:51 Atorvastatin 10 Mg Tab PO 10 mg HS ELSIE Administration Fenofibrate 160 mg 06/16/20 09:00 06/17/20 08:28 Fenofibrate 160 Mg Tab PO 160 mg DAILY ELSIE Administration Furosemide 40 mg 06/15/20 16:00 06/17/20 08:28 Furosemide 10 Mg/Ml 4 Ml Vial IV 40 mg BID@0900,1600 ELSIE Administration Insulin Aspart 0 unit 06/15/20 17:30 06/17/20 12:28 Insulin Aspart (Novolog) 100 Unit/Ml Vial SQ Not Given ACHS [facility] Protocol Lisinopril 5 mg 06/16/20 09:00 06/16/20 08:57 Lisinopril 5 Mg Tab PO 5 mg DAILY ELSIE Administration Metformin HCl 500 mg 06/15/20 18:30 06/16/20 17:28 Metformin 500 Mg Tab PO 500 mg PC-SUPPER ELSIE Administration Metoprolol Tartrate 150 mg 06/16/20 16:00 06/17/20 08:28 Metoprolol Tartrate 50 Mg Tab PO 150 mg TID ELSIE Administration Pantoprazole Sodium 40 mg 06/17/20 07:30 06/17/20 06:50 Pantoprazole 40 Mg Tablet PO 40 mg AC-BRKFST ELSIE Administration Objective - Vital Signs Vital signs: Vital Signs Temp 97.5 F L 06/18/20 08:00 Pulse 101 H 06/18/20 08:00 Resp 20 06/18/20 08:00 BP 109/76 06/18/20 08:00 Pulse Ox 95 06/18/20 08:00 Intake & Output 06/17/20 06/18/20 06/18/20 18:59 06:59 18:59 Intake Total 720 240 Output Total 500 Balance 720 -500 240 Weight 83.2 kg Intake: Oral 720 240 Output: Urine 500 - Exam GENERAL: The patient is alert and oriented x3, not in any acute distress. Well developed, well nourished. HEENT: Pupils are round and equally reacting to light. EOMI. No scleral icterus. No conjunctival pallor. Normocephalic, atraumatic. No pharyngeal erythema. No thyromegaly. CARDIOVASCULAR: S1 and S2 present. No murmurs, rubs, or gallops. PULMONARY: Chest is clear to auscultation, no wheezing or crackles. ABDOMEN: Soft, nontender, nondistended, normoactive bowel sounds. No palpable organomegaly. MUSCULOSKELETAL: No joint swelling or deformity. EXTREMITIES: No cyanosis, clubbing, or pedal edema. NEUROLOGICAL: Gross neurological examination did not reveal any focal deficits. SKIN: No rashes. no petechiae. - Labs CBC & Chem 7: 06/17/20 07:14 06/18/20 08:11 Labs: Abnormal Lab Results - Last 24 Hours (Table) 06/17/20 06/17/20 06/17/20 Range/Units 11:49 16:51 19:58 Sodium (137-145) mmol/L Chloride (98-107) mmol/L Carbon Dioxide (22-30) mmol/L BUN (7-17) mg/dL Glucose (74-99) mg/dL POC Glucose (mg/dL) 115 H 149 H 121 H (75-99) mg/dL 06/18/20 06/18/20 Range/Units 06:18 08:11 Sodium 133 L (137-145) mmol/L Chloride 95 L (98-107) mmol/L Carbon Dioxide 32 H (22-30) mmol/L BUN 22 H (7-17) mg/dL Glucose 179 H (74-99) mg/dL POC Glucose (mg/dL) 110 H (75-99) mg/dL Assessment and Plan Assessment: Atrial fibrillation with RVR, on Eliquis Acute systolic CHF with ejection fraction 45-50% Acute on chronic hypoxic respiratory failure history of left atrial appendage thrombosis Left lung squamous cell CA, getting chemotherapy as an outpatient Plan: This is a pleasant 74 years old female who presents with CHF and A. fib on the top of her lung cancer. Continue with metoprolol, continue with IV Lasix. Continue with Eliquis. Follow-up recommendation by logistics team lead. Continue with oxygen as needed. Pain management. Pulmonary consult. Hematology/oncology on the case and therefore to continue with treatment and follow-up as an outpatient Labs and medication were reviewed.. Continue same treatment. Continue with symptomatic treatment. Resume home medication. Monitor lytes and vitals. DVT and GI prophylaxis. Further recommendationsas per clinical course of the patient DVT prophylaxis: Eliquis GI Prophylaxis: Ppi PT/OT: Pending Prognosis is guarded
[2020-06-18 11:58] LABS: Glucose,Whole Blood 121 mg/dL (75-99)
--- NOTE | 2020-06-18 12:46 | P.PN ---
Subjective This is a pleasant 74-year-old female past medical history significant for lung cancer, COPD on home oxygen, paroxysmal atrial fibrillation on Eliquis, diabetes mellitus and hypertension. She follows in the office with Dr. Dee. Patient was seen and examined sitting up in bed in no acute distress. She states last evening she had an episode of tachycardia that caused her to feel short of breath requiring oxygen. This morning she feels better however she continues to be in atrial fibrillation with variable ventricular rates. She was given IV digoxin last evening. Blood pressure 109/76 heart rate between 100 and 120. Maintaining oxygen saturation on nasal cannula. Laboratory data reviewed, sodium 133, potassium 4.3, creatinine 0.68 and magnesium 1.7. Currently maintained on Eliquis 5 mg twice a day, digoxin 125 g daily, Lasix 40 mg IV twice a day, lisinopril 5 mg daily and metoprolol 150 mg 3 times a day. GENERAL: Well-appearing, well-nourished and in no acute distress. NECK: Supple without JVD or thyromegaly. LUNGS: Breath sounds clear to auscultation bilaterally. Respiration equal and unlabored. No wheezes, rales or rhonchi. HEART: Irregular rate and rhythm with systolic ejection murmur, no rubs or gallops. S1 and S2 heard. EXTREMITIES: Normal range of motion, no edema. No clubbing or cyanosis. Peripheral pulses intact. ASSESSMENT Paroxysmal atrial fibrillation with rapid ventricular rate Acute exacerbation of systolic heart failure, ejection fraction 35-40% Lung cancer currently undergoing chemotherapy Hypertension Dyslipidemia Diabetes mellitus PLAN Initiate on amiodarone infusion. Pt is scheduled to undergo AZ/cardioversion tomorrow with Dr. Dee at [facility]. If amiodarone does not convert her we will ask Dr. Dee to perform AZ/CV here tomorrow. NPO after midnight tonight. Nurse Practitioner note has been reviewed, I agree with a documented findings and plan of care. Patient was seen and examined. Objective - Vital Signs Vital signs: Vital Signs Temp 97.5 F L 06/18/20 08:00 Pulse 101 H 06/18/20 08:00 Resp 20 06/18/20 08:00 BP 109/76 06/18/20 08:00 Pulse Ox 95 06/18/20 08:00 Intake & Output 06/17/20 06/18/20 06/18/20 18:59 06:59 18:59 Intake Total 720 240 Output Total 500 Balance 720 -500 240 Weight 83.2 kg Intake: Oral 720 240 Output: Urine 500 - Labs CBC & Chem 7: 06/17/20 07:14 06/18/20 08:11 Labs: Abnormal Lab Results - Last 24 Hours (Table) 06/17/20 06/17/20 06/17/20 Range/Units 11:49 16:51 19:58 Sodium (137-145) mmol/L Chloride (98-107) mmol/L Carbon Dioxide (22-30) mmol/L BUN (7-17) mg/dL Glucose (74-99) mg/dL POC Glucose (mg/dL) 115 H 149 H 121 H (75-99) mg/dL 06/18/20 06/18/20 Range/Units 06:18 08:11 Sodium 133 L (137-145) mmol/L Chloride 95 L (98-107) mmol/L Carbon Dioxide 32 H (22-30) mmol/L BUN 22 H (7-17) mg/dL Glucose 179 H (74-99) mg/dL POC Glucose (mg/dL) 110 H (75-99) mg/dL
[2020-06-18] MEDS ORDERED: DEXTROSE 5% IN WATER 100 ML with AMIODARONE 150 MG IV ONE (13:00)
[2020-06-18] MEDS ORDERED: AMIODARONE 360 MG in DEXTROSE 5% IN WATER 200 ML IV ONE ×2 (13:00)
[2020-06-18] MEDS ORDERED: DIGOXIN 125 MCG TAB PO SCH (14:15)
[2020-06-18 16:47] LABS: Glucose,Whole Blood 142 mg/dL (75-99)
[2020-06-18] MEDS: metFORMIN 500 MG TAB PO SCH (17:09)
[2020-06-18 20:18] LABS: Glucose,Whole Blood 141 mg/dL (75-99)
[2020-06-18] MEDS: AMIODARONE 450 MG in DEXTROSE 5% IN WATER 250 ML IV SCH ×2 (20:19)
[2020-06-18] MEDS: ATORVASTATIN 10 MG TAB PO SCH (20:23)
[2020-06-19] MEDS: INSULIN ASPART (NovoLOG) 100 UNIT/ML VIAL SQ SCH ×4 (06:01→20:46)
[2020-06-19] MEDS: PANTOPRAZOLE 40 MG TABLET PO SCH (06:02)
[2020-06-19 06:06] LABS: Glucose,Whole Blood 128 mg/dL (75-99)
[2020-06-19 07:30] LABS: African American GFR (CKD) >90 (>60 ml/min/1.73 sqM); Anion Gap 5 mmol/L; Blood Urea Nitrogen 22 mg/dL (7-17); Calcium 8.9 mg/dL (8.4-10.2); Carbon Dioxide 34 mmol/L (22-30); Chloride 92 mmol/L (98-107); Glucose 122 mg/dL (74-99); Magnesium 1.8 mg/dL (1.6-2.3); Non-African American GFR(CKD) >90 (>60 ml/min/1.73 sqM); Sodium 131 mmol/L (137-145)
[2020-06-19 07:33] LABS: Potassium 4.7 mmol/L (3.5-5.1)
[2020-06-19] MEDS: ALBUTEROL NEBULIZED 2.5 MG/3 ML INHALATION SCH ×4 (07:51→20:03)
[2020-06-19] MEDS: FUROSEMIDE 10 MG/ML 4 ML VIAL IV SCH (08:44)
[2020-06-19] MEDS: METOPROLOL TARTRATE 50 MG TAB PO SCH ×3 (08:44→20:45)
[2020-06-19] MEDS: DIGOXIN 125 MCG TAB PO SCH (08:44)
[2020-06-19] MEDS: FENOFIBRATE 160 MG TAB PO SCH (08:44)
[2020-06-19] MEDS: APIXABAN 5 MG TAB PO SCH ×2 (08:44→20:45)
[2020-06-19] MEDS: lisinopriL 5 MG TAB PO SCH (08:44)
--- NOTE | 2020-06-19 10:43 | XR ---
EXAMINATION TYPE: XR chest 2V DATE OF EXAM: 06/19/2020 COMPARISON: Chest x-ray 06/15/2020 HISTORY: Shortness of breath TECHNIQUE: Frontal and lateral views of the chest are obtained. FINDINGS: These are similar to prior exam, patchy abnormal density present in the bilateral lungs. N o evident pneumothorax or pleural effusion. Heart size is borderline enlarged. IMPRESSION: Findings similar to prior exam. Correlate to exclude pneumonia, patient with known histo ry of underlying lung carcinoma.
[2020-06-19 11:58] LABS: Glucose,Whole Blood 146 mg/dL (75-99)
--- NOTE | 2020-06-19 12:03 | P.PN ---
Subjective Progress Note Date: 06/19/20 this is a 74-year-old female with past medical history of atrial fibrillation, lung cancer, nonsmoker, diabetes mellitus, hypertension and multiple other medical issues presented to the ER with palpitations and worsening shortness of breath since before . Patient was recently admitted over with A. fib with RVR, AZ performed during that visit reporting left atrial appendage thrombus, worsened EF of 35-40%, medically managed. She developed bilateral lower extremity edema, unable to lay flat. States only able to ambulate about 20 feet before she becomes short of breath. Reoccurring lung cancer, with chemo resumed recently this past Friday. Reports she has 2 L nasal cannula O2 at home secondary to lung cancer and COPD. Denies fever, chills, congestion or cough. Denies nausea vomiting or diarrhea. Denies abdominal pain. Anticoagulated on Eliquis. Chest x-ray reported CHF exacerbation with redemonstration of cardiomegaly and small bilateral pleural effusions, chronic p arenchymal changes/bilateral perihilar opacities similar to prior study. EKG reported atrial fibrillation with RVR, heart rates up into the 130s. Troponins negative 3 .BNP 2880 .thyroid panel ordered .hematology unremarkable .INR 1.4 , sodium 134 potassium 4.4, magnesium 2, BUN 19, creatinine 0.69. Glucose 121. Lactic acid 2.4, currently down to 1.2.Bolused with Cardizem with drip initiated. 06/16/2020 Diuresing well on Lasix IV push with 24-hour I&O reporting a negative fluid balance. Creatinine 0.69. Patient feels better ,though oxygen requirements increased up to 3 L ,maintaining O2 sats in the low 90s. Less crackles. Maintained on Cardizem drip, remains in atrial fibrillation uncontrolled with heart rate currently in the 140s, up to 150s during the night. Cardiology consult in place, recommendations pending. Evaluated by oncology with recommendations noted and appreciated. 06/19/2020 maintained on amiodarone drip, telemetry atrial fibrillation with controlled ventricular rate. Diuresing well on Lasix IV push with 24-hour I&O reflecting a negative fluid balance . Creatinine 0.59 . Sodium 131. Scheduled for AZ/cardioversion tomorrow. Denies chest pain, palpitations. Maintaining O2 sats in the high 90s on 3 L nasal cannula. Objective - Vital Signs Vital signs: Vital Signs Temp 97.8 F 06/19/20 08:00 Pulse 82 06/19/20 08:02 Resp 18 06/19/20 08:00 BP 128/74 06/19/20 08:00 Pulse Ox 98 06/19/20 08:00 Intake & Output 06/18/20 06/19/20 06/19/20 18:59 06:59 18:59 Intake Total 720 Output Total 650 Balance 70 Weight 83.3 kg Intake: Oral 720 Output: Urine 650 Other: # Bowel Movements 0 - Exam PHYSICAL EXAM: VITAL SIGNS: As above GENERAL: Alert and oriented 3, Sitting up in bed, no acute distress HEENT: Conjunctivae normal. eyes normal. NECK: No JVD. No thyroid enlargement. CARDIOVASCULAR: S1, S2 ,irregular,No murmur. RESPIRATION: Breath sounds diminished in the bases. Fine bibasilar crackles. ABDOMEN: Soft, nontender . No guarding. no masses palpable.positive Bowel sounds. LEGS: no edema, no clubbing or cyanosis, no calf tenderness NERVOUS SYSTEM: Cranial N 2-12 grossly normal. Moves all 4 limbs. No focal deficits.Strength and sensation grossly intact. Skin: Warm and dry, no rash - Labs CBC & Chem 7: 06/17/20 07:14 06/19/20 07:02 Labs: Abnormal Lab Results - Last 24 Hours (Table) 06/18/20 06/18/20 06/18/20 Range/Units 11:50 16:38 20:16 Sodium (137-145) mmol/L Chloride (98-107) mmol/L Carbon Dioxide (22-30) mmol/L BUN (7-17) mg/dL Glucose (74-99) mg/dL POC Glucose (mg/dL) 121 H 142 H 141 H (75-99) mg/dL 06/19/20 06/19/20 Range/Units 05:55 07:02 Sodium 131 L (137-145) mmol/L Chloride 92 L (98-107) mmol/L Carbon Dioxide 34 H (22-30) mmol/L BUN 22 H (7-17) mg/dL Glucose 122 H (74-99) mg/dL POC Glucose (mg/dL) 128 H (75-99) mg/dL Assessment and Plan Assessment: Paroximal A. fib with RVR in a patient with chronic Paroximal A. fib.(recently admitted over [place] with Paroximal A. fib with RVR, possible obstructive pneumonia. AZ performed during that visit reporting left atrial appendage thrombus, worsened EF of 35-40%, Coumadin discontinued, transitioned to Eliquis.) Acute CHF exacerbation, systolic dysfunction, EF 35-40% Small bilateral pleural effusions Acute on chronic hypoxic respiratory failure, multifactorial Lactic acidosis, resolved History of small cell right Lung CA, received chemo Left lung squamous cell CA, recently started chemo Diabetes mellitus Hyponatremia Plan: Continue current medication regime ,monitoring and symptomatic treatment. Continues on Antiarrhythmics, diuretics, anticoagulation. Lasix and amiodarone being converted to oral this afternoon. AZ and cardioversion tomorrow. The impression and plan of care has been dictated as directed. : I performed a history and examination of this patient, discussed the same with the dictator. I agree with the dictator's note ,documented as a scribe. Any additional findings or plans will be noted.
[2020-06-19] MEDS: AMIODARONE 200 MG TAB PO SCH ×2 (12:26→20:45)
[2020-06-19] MEDS: AMIODARONE 450 MG in DEXTROSE 5% IN WATER 250 ML IV SCH ×2 (12:26)
--- NOTE | 2020-06-19 12:48 | P.PN ---
Subjective Progress Note Date: 06/19/20 CHIEF COMPLAINT: Malachi. annamaria with RVR HISTORY OF PRESENT ILLNESS: 06/16/2020 This is a 74-year-old female with a past medical history significant for lung cancer, COPD with home oxygen, atrial fibrillation, diabetes mellitus, and hypertension. Patient follows in the office with Dr. Dee. We have been asked to see the patient in consultation for Anjana yin RVR. Patient was hospitalized in May 2020. She was scheduled to undergo AZ and cardioversion. Patient was found to have a left atrial appendage thrombus and cardioversion was canceled. Ejection fraction on AZ was 35-40%. Her ejection fraction based on her echocardiogram at that time was 45-50%. Patient states she has been feeling short of breath and having palpitations since she was discharged from the hospital. She states she is unable to lay flat. She denies chest pain or pressure. 06/19/2020 Patient examined at the bedside. She states her shortness of breath is improving. She denies chest pain or pressure. She remains in atrial fibrillation with controlled ventricular rates. She remains on IV amiodarone. Patient is also receiving IV Lasix. PHYSICAL EXAM: VITAL SIGNS: Reviewed. GENERAL: Well-developed in no acute distress. HEENT: Head is normocephalic. Pupils are equal, round. Sclerae anicteric. Mucous membranes of the mouth are moist. Neck supple. No JVD or thyromegaly LUNGS: Respirations even and unlabored. Lungs diminished bilaterally. HEART: Irregular rate and rhythm. S1 and S2 heard. ABDOMEN: Soft. Nondistended. Nontender. EXTREMITIES: Normal range of motion. No clubbing or cyanosis. Peripheral pulses intact. No lower extremity edema ASSESSMENT: Paroxysmal atrial fibrillation with RVR, on anticoagulation with Eliquis Left atrial appendage thrombus, status post AZ May 2020 Acute exacerbation of systolic congestive heart failure, EF 35-40% Lung cancer, currently undergoing chemotherapy Hypertension Diabetes mellitus PLAN: Continue Eliquis for anticoagulation Transition patient to oral Lasix: 40 mg twice a day Monitor kidney function Daily weight Accurate I&O Continue IV amiodarone. Transition to oral amiodarone this afternoon Patient to undergo AZ and cardioversion tomorrow with Dr. Dee Nurse practitioner note has been reviewed by physician. Signing provider agrees with the documented findings, assessment, and plan of care. Objective - Vital Signs Vital signs: Vital Signs Temp 97.8 F 06/19/20 08:00 Pulse 87 06/19/20 12:00 Resp 18 06/19/20 12:00 BP 102/57 06/19/20 12:00 Pulse Ox 92 L 06/19/20 12:00 Intake & Output 06/18/20 06/19/20 06/19/20 18:59 06:59 18:59 Intake Total 720 Output Total 650 Balance 70 Weight 83.3 kg Intake: Oral 720 Output: Urine 650 Other: # Bowel Movements 0 - Labs CBC & Chem 7: 06/17/20 07:14 06/19/20 07:02 Labs: Abnormal Lab Results - Last 24 Hours (Table) 06/18/20 06/18/20 06/19/20 Range/Units 16:38 20:16 05:55 Sodium (137-145) mmol/L Chloride (98-107) mmol/L Carbon Dioxide (22-30) mmol/L BUN (7-17) mg/dL Glucose (74-99) mg/dL POC Glucose (mg/dL) 142 H 141 H 128 H (75-99) mg/dL 06/19/20 06/19/20 Range/Units 07:02 11:56 Sodium 131 L (137-145) mmol/L Chloride 92 L (98-107) mmol/L Carbon Dioxide 34 H (22-30) mmol/L BUN 22 H (7-17) mg/dL Glucose 122 H (74-99) mg/dL POC Glucose (mg/dL) 146 H (75-99) mg/dL
[2020-06-19] MEDS ORDERED: SODIUM CHLORIDE 0.9% 1,000 ML IV SCH (14:15)
--- NOTE | 2020-06-19 14:19 | P.PN ---
Subjective Progress Note Date: 06/19/20 Principal diagnosis: A. fib with RVR. Dyspnea In follow-up to make patient states she is felt the best she has in quite some time. She is being planned for AZ and possible cardioversion tomorrow morning. Her vital signs show a more consistent heart rate. She denies any side effects related to chemotherapy/IO administered last week. Objective - Vital Signs Vital signs: Vital Signs Temp 97.8 F 06/19/20 08:00 Pulse 80 06/19/20 13:06 Resp 18 06/19/20 13:06 BP 102/57 06/19/20 12:00 Pulse Ox 92 L 06/19/20 12:00 Intake & Output 06/18/20 06/19/20 06/19/20 18:59 06:59 18:59 Intake Total 720 Output Total 650 Balance 70 Weight 83.3 kg Intake: Oral 720 Output: Urine 650 Other: # Bowel Movements 0 - Constitutional General appearance: Present: average body habitus, cooperative, no acute distress - EENT Eyes: Present: anicteric sclerae, EOMI ENT: Present: hearing grossly normal - Respiratory Respiratory: bilateral: CTA - Cardiovascular Rhythm: irregularly irregular Heart sounds: normal: S1, S2 Abnormal Heart Sounds: Absent: systolic murmur, diastolic murmur, rub, S3 Gallop, S4 Gallop, click, other - Peripheral edema leg Peripheral Edema: bilateral: None - Gastrointestinal General gastrointestinal: Present: normal bowel sounds, soft - Neurologic Neurologic: Present: CNII-XII intact - Musculoskeletal Musculoskeletal: Present: strength equal bilaterally - Psychiatric Psychiatric: Present: A&O x's 3, appropriate affect, intact judgment & insight - Labs CBC & Chem 7: 06/17/20 07:14 06/19/20 07:02 Labs: Abnormal Lab Results - Last 24 Hours (Table) 06/18/20 06/18/20 06/19/20 Range/Units 16:38 20:16 05:55 Sodium (137-145) mmol/L Chloride (98-107) mmol/L Carbon Dioxide (22-30) mmol/L BUN (7-17) mg/dL Glucose (74-99) mg/dL POC Glucose (mg/dL) 142 H 141 H 128 H (75-99) mg/dL 06/19/20 06/19/20 Range/Units 07:02 11:56 Sodium 131 L (137-145) mmol/L Chloride 92 L (98-107) mmol/L Carbon Dioxide 34 H (22-30) mmol/L BUN 22 H (7-17) mg/dL Glucose 122 H (74-99) mg/dL POC Glucose (mg/dL) 146 H (75-99) mg/dL - Imaging and Cardiology Chest x-ray: report reviewed Assessment and Plan (1) Squamous cell lung cancer Narrative/Plan: New primary lung cancer in contralateral lung. Started on treatment for the same. She had her first carbo/Taxol/keytruda last week. She has done very well with treatment, no SE to report. We will cont to monitor her labs will she is inpatient. Day 8 of treatment is due this week. This will be on hold until her current situation is resolved. Patient verbalized understanding the plan. Current Visit: Yes Status: Acute Priority: High Code(s): C34.90 - MALIGNANT NEOPLASM OF UNSP PART OF UNSP BRONCHUS OR LUNG SNOMED Code(s): 780280632 (2) Small cell lung cancer Narrative/Plan: History of. Treated for. Recent brain MRI 06/14 negative for metastases. No other evidence of recurrence of small cell at this time. Current Visit: No Status: Chronic Priority: Medium Code(s): C34.90 - MALIGNANT NEOPLASM OF UNSP PART OF UNSP BRONCHUS OR LUNG SNOMED Code(s): 252464712
[2020-06-19] MEDS: FUROSEMIDE 40 MG TAB PO SCH (16:02)
[2020-06-19 16:53] LABS: Glucose,Whole Blood 113 mg/dL (75-99)
[2020-06-19] MEDS: metFORMIN 500 MG TAB PO SCH (17:34)
[2020-06-19 20:45] LABS: Glucose,Whole Blood 129 mg/dL (75-99)
[2020-06-19] MEDS: ATORVASTATIN 10 MG TAB PO SCH (20:45)
[2020-06-20] MEDS: PANTOPRAZOLE 40 MG TABLET PO SCH (05:52)
[2020-06-20] MEDS: INSULIN ASPART (NovoLOG) 100 UNIT/ML VIAL SQ SCH ×2 (06:10→12:03)
[2020-06-20 06:17] LABS: Glucose,Whole Blood 116 mg/dL (75-99)
[2020-06-20] MEDS: ALBUTEROL NEBULIZED 2.5 MG/3 ML INHALATION SCH ×2 (07:35→10:52)
[2020-06-20] MEDS: BENZOCAINE SPRAY 1 CAN TOPICAL ONE ×2 (07:45→07:50)
[2020-06-20] MEDS ORDERED: IV FLUID CONTINUATION 1,000 ML IV ONE ×2 (07:55)
[2020-06-20] MEDS ORDERED: PROPOFOL 10 MG/ML 20 ML VIAL IV ONE (07:59)
[2020-06-20 08:00] LABS: Basophils % (A) 1 %; Eosinophils # (A) 0.1 k/uL (0-0.7); Eosinophils % (A) 2 %; HCT 40.8 % (34.0-46.0); HGB 12.9 gm/dL (11.4-16.0); Hypochromasia Marked; Lymphocytes # (A) 0.6 k/uL (1.0-4.8); Lymphocytes % (A) 15 %; MCH 26.7 pg (25.0-35.0); MCHC 31.8 g/dL (31.0-37.0); MCV 84.1 fL (80.0-100.0); Mean Platelet Volume 8.5; Monocytes # (A) 0.2 k/uL (0-1.0); Monocytes % (A) 4 %; Neutrophils % (A) 76 %; Platelet Count 206 k/uL (150-450); RBC 4.85 m/uL (3.80-5.40)
[2020-06-20 08:17] LABS: African American GFR (CKD) >90 (>60 ml/min/1.73 sqM); Anion Gap 6 mmol/L; Blood Urea Nitrogen 20 mg/dL (7-17); Calcium 9.4 mg/dL (8.4-10.2); Carbon Dioxide 32 mmol/L (22-30); Chloride 98 mmol/L (98-107); Glucose 117 mg/dL (74-99); Non-African American GFR(CKD) 84 (>60 ml/min/1.73 sqM); Potassium 4.8 mmol/L (3.5-5.1); Sodium 136 mmol/L (137-145)
[2020-06-20 08:48] VITALS: TEMP 97.8
--- NOTE | 2020-06-20 08:59 | CE ---
CARDIAC ELECTROPHYSIOLOGY REPORT CARDIOVERSION: DATE OF SERVICE: June 20, 2020 PERFORMING PHYSICIAN: Elias Dee MD. PROCEDURE PERFORMED: Cardioversion. COMPLICATION: None. LEVEL OF SEDATION: Deep sedation was performed using propofol. PROCEDURE DESCRIPTION: After transesophageal echocardiogram was performed and left atrial appendage thrombus was ruled out, we did a cardioversion. The patient cardioverted from atrial fibrillation to normal sinus mechanism using 200 joules on first attempt. CONCLUSION: Successful cardioversion of atrial fibrillation to normal sinus mechanism using 200 joules on first attempt. MMODL / IJN: [id number] /
--- NOTE | 2020-06-20 08:59 | ECHOT ---
TRANSESOPHAGEAL ECHOCARDIOGRAM DATE OF SERVICE: 06/20/2020 PERFORMING PHYSICIAN: Elias Dee MD. PROCEDURE PERFORMED: Transesophageal echocardiogram. INDICATION: Rule out left atrial appendage thrombus. COMPLICATION: None. LEVEL OF SEDATION: Deep using propofol with POWER[employer]SE [employer]PER in the room. PROCEDURE DESCRIPTION: After obtaining an informed consent, the patient was brought to the endo 2 room. The patient was turned into left lateral position. The pulse oximetry and heart rate monitors were attached to the patient. Subsequently, the transesophageal echocardiogram probe was advanced through the bite guard to the mid esophageal where 2D echocardiogram images as well as color Doppler images as well as pulse and continuous-wave images were obtained from multiple views. Finally, we did a bubble study using agitated saline. The procedure was completed without any complication. FINDINGS: The left ventricle appeared to be mildly dilated. The left ventricular systolic function appeared to be impaired with EF around 40%. The right ventricle appeared to be of normal size and function. The left atrium appeared to be mildly dilated. The left atrial appendage appeared to be free from any thrombus. The interatrial septum appeared to be intact. The aortic valve is trileaflet valve without stenosis with mild insufficiency. There was moderate tricuspid regurgitation and mild pulmonic insufficiency seen. CONCLUSION: 1. Intact left atrial appendage without any evidence of thrombus seen. 2. Intact interatrial septum without any evidence of shunt. 3. Impaired left ventricular function with ejection fraction around 40% with global hypokinesia. 4. Thickened mitral valve leaflets with moderate to severe mitral regurgitation. 5. Moderate tricuspid regurgitation. 6. Mild pulmonic insufficiency. 7. No evidence of pericardial effusion. MMODL / IJN: [id number] /
[2020-06-20 09:06] VITALS: RESP 16
[2020-06-20] MEDS: APIXABAN 5 MG TAB PO SCH (09:40)
[2020-06-20] MEDS: AMIODARONE 200 MG TAB PO SCH (09:40)
[2020-06-20] MEDS: lisinopriL 5 MG TAB PO SCH (09:40)
[2020-06-20] MEDS: DIGOXIN 125 MCG TAB PO SCH (09:40)
[2020-06-20] MEDS: FUROSEMIDE 40 MG TAB PO SCH (09:40)
[2020-06-20] MEDS: FENOFIBRATE 160 MG TAB PO SCH (09:40)
[2020-06-20] MEDS: METOPROLOL TARTRATE 50 MG TAB PO SCH (09:40)
--- NOTE | 2020-06-20 11:20 | P.PN ---
Subjective Progress Note Date: 06/20/20 this is a 74-year-old female with past medical history of atrial fibrillation, lung cancer, nonsmoker, diabetes mellitus, hypertension and multiple other medical issues presented to the ER with palpitations and worsening shortness of breath since before . Patient was recently admitted over with A. fib with RVR, AZ performed during that visit reporting left atrial appendage thrombus, worsened EF of 35-40%, medically managed. She developed bilateral lower extremity edema, unable to lay flat. States only able to ambulate about 20 feet before she becomes short of breath. Reoccurring lung cancer, with chemo resumed recently this past Friday. Reports she has 2 L nasal cannula O2 at home secondary to lung cancer and COPD. Denies fever, chills, congestion or cough. Denies nausea vomiting or diarrhea. Denies abdominal pain. Anticoagulated on Eliquis. Chest x-ray reported CHF exacerbation with redemonstration of cardiomegaly and small bilateral pleural effusions, chronic p arenchymal changes/bilateral perihilar opacities similar to prior study. EKG reported atrial fibrillation with RVR, heart rates up into the 130s. Troponins negative 3 .BNP 2880 .thyroid panel ordered .hematology unremarkable .INR 1.4 , sodium 134 potassium 4.4, magnesium 2, BUN 19, creatinine 0.69. Glucose 121. Lactic acid 2.4, currently down to 1.2.Bolused with Cardizem with drip initiated. 06/16/2020 Diuresing well on Lasix IV push with 24-hour I&O reporting a negative fluid balance. Creatinine 0.69. Patient feels better ,though oxygen requirements increased up to 3 L ,maintaining O2 sats in the low 90s. Less crackles. Maintained on Cardizem drip, remains in atrial fibrillation uncontrolled with heart rate currently in the 140s, up to 150s during the night. Cardiology consult in place, recommendations pending. Evaluated by oncology with recommendations noted and appreciated. 06/19/2020 maintained on amiodarone drip, telemetry atrial fibrillation with controlled ventricular rate. Diuresing well on Lasix IV push with 24-hour I&O reflecting a negative fluid balance . Creatinine 0.59 . Sodium 131. Scheduled for AZ/cardioversion tomorrow. Denies chest pain, palpitations. Maintaining O2 sats in the high 90s on 3 L nasal cannula. 06/20/2020NPO, scheduled for cardioversion/AZ today. Controlled atrial fibrillation. Maintaining O2 sats in the 90s on 3 L nasal cannula. Denies chest pain, palpitations. Sodium improved, 136. Objective - Vital Signs Vital signs: Vital Signs Temp 97.8 F 06/20/20 09:27 Pulse 68 06/20/20 11:03 Resp 16 06/20/20 09:27 BP 115/59 06/20/20 10:22 Pulse Ox 97 06/20/20 09:27 Intake & Output 06/19/20 06/20/20 06/20/20 18:59 06:59 18:59 Intake Total 480 400 400 Balance 480 400 400 Weight 83.5 kg Intake: IV 400 Intake, IV Titration 160 Amount Sodium Chloride 0.9% 1, 160 000 ml @ 20 mls/hr IV . Q24H ELSIE Rx#:[id number] Oral 480 240 Other: Voiding Method Toilet Toilet # Voids 4 2 - Exam PHYSICAL EXAM: VITAL SIGNS: As above GENERAL: Alert and oriented 3, NAD HEENT: Conjunctivae normal. eyes normal. NECK: No JVD. No thyroid enlargement. CARDIOVASCULAR: S1, S2 ,irregular,No murmur. RESPIRATION: Breath sounds diminished in the bases, fine bibasilar crackles. ABDOMEN: Soft, nontender . No guarding. no masses palpable.positive Bowel sounds. LEGS: no edema, no clubbing or cyanosis, no calf tenderness NERVOUS SYSTEM: Cranial N 2-12 grossly normal. Moves all 4 limbs. No focal deficits.Strength and sensation grossly intact. Skin: Warm and dry, no rash - Labs CBC & Chem 7: 06/20/20 07:02 06/20/20 07:02 Labs: Abnormal Lab Results - Last 24 Hours (Table) 06/19/20 06/19/20 06/19/20 Range/Units 11:56 16:51 20:35 Lymphocytes # (1.0-4.8) k/uL Sodium (137-145) mmol/L Carbon Dioxide (22-30) mmol/L BUN (7-17) mg/dL Glucose (74-99) mg/dL POC Glucose (mg/dL) 146 H 113 H 129 H (75-99) mg/dL 01/06/20/20 06/20/20 Range/Units 05:58 07:02 07:02 Lymphocytes # 0.6 L (1.0-4.8) k/uL Sodium 136 L (137-145) mmol/L Carbon Dioxide 32 H (22-30) mmol/L BUN 20 H (7-17) mg/dL Glucose 117 H (74-99) mg/dL POC Glucose (mg/dL) 116 H (75-99) mg/dL Assessment and Plan Assessment: Paroximal A. fib with RVR in a patient with chronic Paroximal A. fib.(recently admitted over with Paroximal A. fib with RVR, possible obstructive pneumonia. AZ performed during that visit reporting left atrial appendage thr ombus, worsened EF of 35-40%, Coumadin discontinued, transitioned to Eliquis.) Acute CHF exacerbation, systolic dysfunction, EF 35-40% Small bilateral pleural effusions Acute on chronic hypoxic respiratory failure, multifactorial Lactic acidosis, resolved History of small cell right Lung CA, received chemo Left lung squamous cell CA, recently started chemo Diabetes mellitus Hyponatremia Plan: Continue current medication regime ,monitoring and symptomatic treatment. Cardioversion/AZ pending.Antiarrhythmics, diuretics, anticoagulation. Discharge planning in progress for tomorrow pending final DC recommendations, clearance from cardiology. The impression and plan of care has been dictated as directed. : I performed a history and examination of this patient, discussed the same with the dictator. I agree with the dictator's note ,documented as a scribe. Any additional findings or plans will be noted.
[2020-06-20 11:40] VITALS: BP 112/57; PULSE 63
[2020-06-20 11:49] LABS: Glucose,Whole Blood 179 mg/dL (75-99)
--- NOTE | 2020-06-20 12:15 | P.DS ---
Providers Date of admission: 06/15/20 07:26 Expected date of discharge: 06/20/20 Attending physician: Francisco Ramirez Consults: 06/15/20 07:40 Consult Physician Urgent Consulting Provider: Elias Dee Consult Reason/Comments: afib rvr Do you want consulting provider notified?: Yes 06/15/20 08:46 Consult Physician Routine Consulting Provider: Joanna Gil Consult Reason/Comments: resumed chemo recently Do you want consulting provider notified?: Yes Primary care physician: Francisco Ramirez [facility] Course: Final Diagnoses: Paroximal A. fib with RVR in a patient with chronic Paroximal A. fib.(recently admitted over with Paroximal A. fib with RVR, possible obstructive pneumonia. AZ performed during that visit reporting left atrial appendage thrombus, worsened EF of 35-40%, Coumadin discontinued, transitioned to Eliquis.). Status post AZ reporting no evidence of thrombus or shunt with EF around 40% with global hypokinesia. Status post successful cardioversion. Acute CHF exacerbation, systolic dysfunction, EF 40% Small bilateral pleural effusions Acute on chronic hypoxic respiratory failure, multifactorial Moderate to severe mitral regurgitation Moderate tricuspid regurgitation Lactic acidosis, resolved History of small cell right Lung CA, received chemo Left lung squamous cell CA, recently started chemo Diabetes mellitus Hyponatremia, resolved Hospital course:this is a 74-year-old female with past medical history of atrial fibrillation, lung cancer, nonsmoker, diabetes mellitus, hypertension and multiple other medical issues presented to the ER with palpitations and worsening shortness of breath since before . Patient was recently admitted over [place] with A. fib with RVR, AZ performed during that visit reporting left atrial appendage thrombus, worsened EF of 35-40%, medically managed. She developed bilateral lower extremity edema, unable to lay flat. States only able to ambulate about 20 feet before she becomes short of breath. Reoccurring lung cancer, with chemo resumed recently this past Friday. Reports she has 2 L nasal cannula O2 at home secondary to lung cancer and COPD. Denies fever, chills, congestion or cough. Denies nausea vomiting or diarrhea. Denies abdominal pain. Anticoagulated on Eliquis. Chest x-ray reported CHF exacerbation with redemonstration of cardiomegaly and small bilateral pleural ef fusions, chronic parenchymal changes/bilateral perihilar opacities similar to prior study. EKG reported atrial fibrillation with RVR, heart rates up into the 130s. Troponins negative 3 .BNP 2880 .thyroid panel ordered .hematology unremarkable .INR 1.4 , sodium 134 potassium 4.4, magnesium 2, BUN 19, creatinine 0.69. Glucose 121. Lactic acid 2.4, currently down to 1.2.Bolused with Cardizem with drip initiated. 06/16/2020 Diuresing well on Lasix IV push with 24-hour I&O reporting a negative fluid balance. Creatinine 0.69. Patient feels better ,though oxygen requirements increased up to 3 L ,maintaining O2 sats in the low 90s. Less crackles. Maintained on Cardizem drip, remains in atrial fibrillation uncontrolled with heart rate currently in the 140s, up to 150s during the night. Cardiology consult in place, recommendations pending. Evaluated by oncology with recommendations noted and appreciated. 06/19/2020 maintained on amiodarone drip, telemetry atrial fibrillation with c ontrolled ventricular rate. Diuresing well on Lasix IV push with 24-hour I&O reflecting a negative fluid balance . Creatinine 0.59 . Sodium 131. Scheduled for AZ/cardioversion tomorrow. Denies chest pain, palpitations. Maintaining O2 sats in the high 90s on 3 L nasal cannula. 06/20/2020NPO, scheduled for cardioversion/ZA today. Controlled atrial fibrillation. Maintaining O2 sats in the 90s on 3 L nasal cannula. Denies chest pain, palpitations. Sodium improved, 136. AZ completed, reporting no evidence of thrombus,shunt or pericardial effusion, impaired LV function with EF around 40% with global hypokinesia, moderate to severe mitral regurgitation, moderate tricuspid regurgitation, mild pulmonary insufficiency. Underwent successful cardioversion of atrial fibrillation to no rmal sinus rhythm using 200 J on first attempt. Patient has been cleared for discharge today as per cardiology, including recommendations for beta jalen to be resumed at original dose, diuretics of Lasix 40 twice a day and amiodarone taper. Amiodarone taper RX as per cardiology. Patient will be discharged home today in a stable condition with guarded prognosis. The impression and plan of care has been dictated as directed. : I performed a history and examination of this patient, discussed the same with the dictator. I agree with the dictator's note ,documented as a scribe. Any ad ditional findings or plans will be noted. Patient Condition at Discharge: Stable Plan - Discharge Summary Discharge Rx Participant: No New Discharge Prescriptions: New Furosemide [Lasix] 40 mg PO BID@0900,1600 #60 tab Continue Fenofibrate 160 mg PO DAILY metFORMIN HCL [Glucophage] 500 mg PO PC-SUPPER Simvastatin [Zocor] 20 mg PO HS Apixaban [Eliquis] 5 mg PO BID 30 Days #60 tab lisinopriL [Zestril] 5 mg PO DAILY 30 Days #30 tab Metoprolol Tartrate 75 mg PO TID 30 Days #270 tab Albuterol Inhaler [Ventolin Hfa Inhaler] 2 puff INHALATION RT-QID 30 Days #1 puff Pembrolizumab [Keytruda] 200 mg IVPB Q21D Discharge Medication List Fenofibrate 160 mg PO DAILY 06/30/19 [History] metFORMIN HCL [Glucophage] 500 mg PO PC-SUPPER 06/30/19 [History] Simvastatin [Zocor] 20 mg PO HS 07/13/19 [History] Apixaban [Eliquis] 5 mg PO BID 30 Days #60 tab 05/29/20 [Rx] Albuterol Inhaler [Ventolin Hfa Inhaler] 2 puff INHALATION RT-QID 30 Days #1 puff 05/30/20 [Rx] Metoprolol Tartrate 75 mg PO TID 30 Days #270 tab 05/30/20 [Rx] lisinopriL [Zestril] 5 mg PO DAILY 30 Days #30 tab 05/30/20 [Rx] Pembrolizumab [Keytruda] 200 mg IVPB Q21D 06/15/20 [History] Amiodarone [Cordarone] 400 mg PO BID #90 tab 06/20/20 [Rx] Furosemide [Lasix] 40 mg PO BID@0900,1600 #60 tab 06/20/20 [Rx] Follow up Appointment(s)/Referral(s): Francisco Ramirez DO [Primary Care Provider] - 3 Days Ambulatory/Diagnostic Orders: Complete Blood Count w/diff [LAB.AMB] Time Frame: 3 Days, Location: None Selected Activity/Diet/Wound Care/Special Instructions: amiodarone taper as per cardiololgy. Confirm follow-up appointment with oncology prior to DC. Confirm follow-up appointment with cardiology prior to DC.
--- NOTE | 2020-06-20 13:48 | P.PN ---
Subjective Progress Note Date: 06/20/20 Principal diagnosis: A. fib with RVR. Dyspnea In follow-up to make patient doing great post AZ and cardioversion. She feels good, breathing is stable, no nausea, she can ambulate with less fatigue and SOB. She denies any side effects related to chemotherapy/IO administered last week. Objective - Vital Signs Vital signs: Vital Signs Temp 97.8 F 06/20/20 09:27 Pulse 63 06/20/20 11:22 Resp 16 06/20/20 11:22 BP 112/57 06/20/20 11:22 Pulse Ox 97 06/20/20 11:22 Intake & Output 06/19/20 06/20/20 06/20/20 18:59 06:59 18:59 Intake Total 480 400 250 Balance 480 400 250 Weight 83.5 kg Intake: IV 250 Intake, IV Titration 160 Amount Sodium Chloride 0.9% 1, 160 000 ml @ 20 mls/hr IV . Q24H ELSIE Rx#:[id number] Oral 480 240 Other: Voiding Method Toilet Toilet # Voids 4 2 - Constitutional General appearance: Present: average body habitus, cooperative, no acute distress - EENT Eyes: Present: anicteric sclerae, EOMI ENT: Present: hearing grossly normal - Respiratory Respiratory: bilateral: CTA - Cardiovascular Rhythm: regular Heart sounds: normal: S1, S2 Abnormal Heart Sounds: Absent: systolic murmur, diastolic murmur, rub, S3 Gallop, S4 Gallop, click, other - Peripheral edema leg Peripheral Edema: bilateral: Trace - Gastrointestinal General gastrointestinal: Present: normal bowel sounds, soft - Integumentary Integumentary: Present: normal - Musculoskeletal Musculoskeletal: Present: strength equal bilaterally - Psychiatric Psychiatric: Present: A&O x's 3, appropriate affect, intact judgment & insight - Labs CBC & Chem 7: 06/20/20 07:02 06/20/20 07:02 Labs: Abnormal Lab Results - Last 24 Hours (Table) 06/19/20 06/19/20 06/20/20 Range/Units 16:51 20:35 05:58 Lymphocytes # (1.0-4.8) k/uL Sodium (137-145) mmol/L Carbon Dioxide (22-30) mmol/L BUN (7-17) mg/dL Glucose (74-99) mg/dL POC Glucose (mg/dL) 113 H 129 H 116 H (75-99) mg/dL 06/20/20 06/20/20 06/20/20 Range/Units 07:02 07:02 11:47 Lymphocytes # 0.6 L (1.0-4.8) k/uL Sodium 136 L (137-145) mmol/L Carbon Dioxide 32 H (22-30) mmol/L BUN 20 H (7-17) mg/dL Glucose 117 H (74-99) mg/dL POC Glucose (mg/dL) 179 H (75-99) mg/dL - Imaging and Cardiology Reviewed Cardiology procedure notes Assessment and Plan (1) Squamous cell lung cancer Narrative/Plan: New primary lung cancer in contralateral lung. Started on treatment for the serafin huber. She had her first carbo/Taxol/keytruda last week. She has done very well with treatment, no SE to report. Day 8 of treatment is due this week. Since pt doing so well post procedure she is likely going to be discharged today or early tomorrow. Told pt that I will ask her Primary Onc what he would like to do and the RNs will get with her to sched appt. She verbalized understanding Current Visit: Yes Status: Acute Priority: High Code(s): C34.90 - MALIGNANT NEOPLASM OF UNSP PART OF UNSP BRONCHUS OR LUNG SNOMED Code(s): 473612348 (2) Small cell lung cancer Narrative/Plan: History of. Treated for. Recent brain MRI 06/14 negative for metastases. No other evidence of recurrence of small cell at this time. Current Visit: No Status: Chronic Priority: Medium Code(s): C34.90 - MALIGNANT NEOPLASM OF UNSP PART OF UNSP BRONCHUS OR LUNG SNOMED Code(s): 668402018
--- NOTE | 2020-06-20 14:00 | P.PN ---
Subjective Progress Note Date: 06/20/20 CHIEF COMPLAINT: Malachi. annamaria with RVR HISTORY OF PRESENT ILLNESS: 06/16/2020 This is a 74-year-old female with a past medical history significant for lung cancer, COPD with home oxygen, atrial fibrillation, diabetes mellitus, and hypertension. Patient follows in the office with Dr. Dee. We have been asked to see the patient in consultation for Malachi. annamaria RVR. Patient was hospitalized in May 2020. She was scheduled to undergo AZ and cardioversion. Patient was found to have a left atrial appendage thrombus and cardioversion was canceled. Ejection fraction on AZ was 35-40%. Her ejection fraction based on her echocardiogram at that time was 45-50%. Patient states she has been feeling short of breath and having palpitations since she was discharged from the hospital. She states she is unable to lay flat. She denies chest pain or pressure. 06/19/2020 Patient examined at the bedside. She states her shortness of breath is improving. She denies chest pain or pressure. She remains in atrial fibrillation with controlled ventricular rates. She remains on IV amiodarone. Patient is also receiving IV Lasix. 06/20/2020 Patient examined this point the bedside. She is status post AZ with cardioversion. She is currently maintaining sinus mechanism with heart rate in the 50s and 60s. She states her shortness of breath has improved. She denies chest pain or pressure. Vital signs are stable. PHYSICAL EXAM: VITAL SIGNS: Reviewed. GENERAL: Well-developed in no acute distress. HEENT: Head is normocephalic. Pupils are equal, round. Sclerae anicteric. Mucous membranes of the mouth are moist. Neck supple. No JVD or thyromegaly LUNGS: Respirations even and unlabored. Lungs diminished bilaterally. HEART: regular rate and rhythm. S1 and S2 heard. ABDOMEN: Soft. Nondistended. Nontender. EXTREMITIES: Normal range of motion. No clubbing or cyanosis. Peripheral pulses intact. No lower extremity edema ASSESSMENT: Paroxysmal atrial fibrillation with RVR, on anticoagulation with Eliquis Left atrial appendage thrombus, status post AZ May 2020 Acute exacerbation of systolic congestive heart failure, EF 35-40% Lung cancer, currently undergoing chemotherapy Hypertension Diabetes mellitus PLAN: Continue Eliquis for anticoagulation Decrease metoprolol to 75 mg 3 times a day Continue additional cardiac medications Patient is stable for discharge home today. She is to follow up outpatient with Dr. Dee Nurse practitioner note has been reviewed by physician. Signing provider agrees with the documented findings, assessment, and plan of care. Objective - Vital Signs Vital signs: Vital Signs Temp 97.8 F 06/20/20 09:27 Pulse 63 06/20/20 11:22 Resp 16 06/20/20 11:22 BP 112/57 06/20/20 11:22 Pulse Ox 97 06/20/20 11:22 Intake & Output 06/19/20 06/20/20 06/20/20 18:59 06:59 18:59 Intake Total 480 400 250 Balance 480 400 250 Weight 83.5 kg Intake: IV 250 Intake, IV Titration 160 Amount Sodium Chloride 0.9% 1, 160 000 ml @ 20 mls/hr IV . Q24H ELSIE Rx#:[id number] Oral 480 240 Other: Voiding Method Toilet Toilet # Voids 4 2 - Labs CBC & Chem 7: 06/20/20 07:02 06/20/20 07:02 Labs: Abnormal Lab Results - Last 24 Hours (Table) 06/19/20 06/19/20 06/20/20 Range/Units 16:51 20:35 05:58 Lymphocytes # (1.0-4.8) k/uL Sodium (137-145) mmol/L Carbon Dioxide (22-30) mmol/L BUN (7-17) mg/dL Glucose (74-99) mg/dL POC Glucose (mg/dL) 113 H 129 H 116 H (75-99) mg/dL 06/20/20 06/20/20 06/20/20 Range/Units 07:02 07:02 11:47 Lymphocytes # 0.6 L (1.0-4.8) k/uL Sodium 136 L (137-145) mmol/L Carbon Dioxide 32 H (22-30) mmol/L BUN 20 H (7-17) mg/dL Glucose 117 H (74-99) mg/dL POC Glucose (mg/dL) 179 H (75-99) mg/dL
[2020-06-20] MEDS ORDERED: METOPROLOL TARTRATE 25 MG TAB PO SCH (16:00)
== END 2020-06-20 16:03 | disposition home or self-care (01) | DRG 308 ==
LOC: EC 05:44 → 3SCARD 07:26
PROVIDERS: ADMIT Family Medicine; ATTEND Family Medicine
PROC: 5A2204Z Restoration of Cardiac Rhythm, Single (ICD-10-PCS; 2020-06-20)
PROC: B24BZZ4 Ultrasonography of Heart with Aorta, Transesophageal (ICD-10-PCS; principal; 2020-06-20 08:00)
DX: I48.0 Paroxysmal atrial fibrillation (principal); I50.23 Acute on chronic systolic (congestive) heart failure; J96.21 Acute and chronic respiratory failure with hypoxia; E87.2 Acidosis; C34.92 Malignant neoplasm of unspecified part of left bronchus or lung; J91.8 Pleural effusion in other conditions classified elsewhere; E87.1 Hypo-osmolality and hyponatremia; I11.0 Hypertensive heart disease with heart failure; J44.9 Chronic obstructive pulmonary disease, unspecified; I08.1 Rheumatic disorders of both mitral and tricuspid valves; E78.5 Hyperlipidemia, unspecified; J98.4 Other disorders of lung; E11.9 Type 2 diabetes mellitus without complications; Z85.118 Personal history of other malignant neoplasm of bronchus and lung; Z92.21 Personal history of antineoplastic chemotherapy; Z99.81 Dependence on supplemental oxygen; Z87.891 Personal history of nicotine dependence; Z80.3 Family history of malignant neoplasm of breast; Z80.0 Family history of malignant neoplasm of digestive organs; Z79.01 Long term (current) use of anticoagulants; Z79.84 Long term (current) use of oral hypoglycemic drugs; Z79.899 Other long term (current) drug therapy; Z88.1 Allergy status to other antibiotic agents; Z88.5 Allergy status to narcotic agent; Z88.2 Allergy status to sulfonamides; Z98.890 Other specified postprocedural states; Z90.710 Acquired absence of both cervix and uterus; Z92.3 Personal history of irradiation; Z86.79 Personal history of other diseases of the circulatory system
CPT/HCPCS: 36415; 70553; 71046; 80048; 80053; 83605; 83735; 83880; 84439; 84443; 84481; 84484; 85025; 85610; 85730; 92960; 93005; 93312; 93320; 93325; 94640; 94760; 96365; 96366; 96375; 96376; 99291

== ENCOUNTER → 2020-07-18 | Outpatient (CLI) | payer MEDICARE ==
--- NOTE | 2020-07-18 14:32 | CT ---
EXAMINATION TYPE: CT ChestAbdPelvis w con DATE OF EXAM: 07/18/2020 COMPARISON: 05/18/2020, 03/10/2020, 02/22/2020 HISTORY: 74-year-old female, C34.91, right Lung CA. C34.12 left lung cancer. TECHNIQUE: Contiguous axial scanning of the chest, abdomen, and pelvis performed with IV Contrast, pa tient injected with 100 mL of Isovue 300. Delayed images through the kidneys were obtained. Coronal/s agittal reconstructions performed. CT DLP: 1707 mGycm Automated exposure control for dose reduction was used. FINDINGS: CHEST: Heart upper limits of normal in size without pericardial effusion. Scattered three-vessel coronary ar dagoberto calcifications are present. Ectatic ascending aorta 3.7 cm with moderate atherosclerotic arch calcifications and bovine configura tion to the aortic arch. AP window lymphadenopathy significantly decreased in size currently 2.2 x 1.0 cm (versus 2.9 x 1.7 cm , previously). Subcarinal lymphadenopathy decreased at 1 cm thick now versus 1.8 cm, previously. No new thoracic lymphadenopathy. Prominent perihilar bronchovascular and right perihilar groundglass changes are similar from 05/18/20 20 but increased from 03/10/2020. Findings suggest post radiation therapy change. The previous right l ower lobe nodularity is only subtly apparent now at 7 mm versus 8 mm, previously, axial image 25. Background of mild emphysema. Left suprahilar spiculated soft tissue decreased in size measuring 1.5 cm now versus at least 3.1 cm, previously. Some associated cavitation along the superior margin is slightly larger. Continued dense band of atelectasis or scar extending anteriorly in the left upper lobe from this reg ion. The remaining abnormal left hilar lymphadenopathy is no longer appreciated. No pleural effusion. ABDOMEN: No focal liver lesion. Bile duct mildly dilated at 1 cm but with distal tapering. Portal venous syste m is patent. Gallbladder surgically absent. Right adrenal nodule measures 1.6 x 1.0 cm versus 1.3 x 1.0 cm on 05/18/2020 and 1.4 x 0.8 cm on 02/21. Slight thickening of the left adrenal gland is unchanged. 2.1 cm medial right renal cyst. Left kidney, spleen, and pancreas show no gross abnormality. Moderate atherosclerotic calcifications abdominal aorta and common iliac arteries. No dilated small bowel, free fluid, or free air. No mesenteric or retroperitoneal lymphadenopathy. Moderate stool burden. Oral contrast progressed into the transverse colon. Redundant sigmoid colon. N o pericolonic inflammatory change. PELVIS: Bladder distended. Uterus surgically absent. Left ovary may be visualized on axial image 93. Density here remains unchanged back to at least 02/22/2020. No abnormal fluid collection in the pelvis or pelv ic lymphadenopathy. BONES: Degenerative changes of the hips. Stable sclerotic focus posterior left iliac bone. Extensive posteri or lumbar fusion hardware with laminectomies. Moderate to advanced degenerative disc disease mid to l ower thoracic spine. IMPRESSION: 1. DECREASING SIZE OF THE LEFT SUPRAHILAR SPICULATED SOFT TISSUE CURRENTLY AT 1.5 CM VERSUS 3.1 CM, P REVIOUSLY. THE ADJACENT LEFT HILAR AND SUBCARINAL LYMPHADENOPATHY HAS RESOLVED AND THE AP WINDOW LYMP H NODE SHOWS SIGNIFICANT INTERVAL DECREASE IN SIZE (CURRENTLY 2.2 X 1.0 CM VERSUS 2.9 X 1.7 CM, PREVI OUSLY). 2. STABLE THICK BAND OF ADJACENT SCAR OR ATELECTASIS EXTENDING ANTERIORLY IN THE LEFT UPPER LOBE. 3. RIGHT PERIHILAR GROUNDGLASS CHANGES SIMILAR COMPARED TO 05/18/2020 LIKELY POSTTREATMENT CHANGE RELATED TO THE RADIATION PORT. MINIMAL RESIDUAL RIGHT LOWER LOBE NODULE MEASURES 7 MM VERSUS 8 MM, AR EVIOUSLY. 4. CONTINUED FOLLOW-UP RECOMMENDED THE RIGHT ADRENAL NODULE SHOWS MINIMAL INCREASING FULLNESS CURR ENTLY AT 1.6 X 1.0 CM (VERSUS 1.3 X 1.0 CM, PREVIOUSLY).
== END | disposition home or self-care (01) ==
LOC: RADCTMAIN 11:34
PROVIDERS: ATTEND Internal Medicine Hematology & Oncology
DX: R91.8 Other nonspecific abnormal finding of lung field (principal); R91.1 Solitary pulmonary nodule; E27.8 Other specified disorders of adrenal gland; E11.9 Type 2 diabetes mellitus without complications; C34.12 Malignant neoplasm of upper lobe, left bronchus or lung; C34.91 Malignant neoplasm of unspecified part of right bronchus or lung; Z79.84 Long term (current) use of oral hypoglycemic drugs; Z98.890 Other specified postprocedural states; Z88.2 Allergy status to sulfonamides; Z88.5 Allergy status to narcotic agent; Z88.1 Allergy status to other antibiotic agents
CPT/HCPCS: 82565; 84520; 71260; 74177; 36415; Q9967 ×2

== ENCOUNTER → 2020-09-18 | Outpatient (CLI) | payer MEDICARE ==
--- NOTE | 2020-09-19 08:10 | CT ---
EXAMINATION TYPE: CT ChestAbdPelvis w con DATE OF EXAM: 09/18/2020 COMPARISON: CT July 18, 2020 and older studies. Most recent PET/CT March 10, 2020 HISTORY: Lung ca f/u. Only reports having bone pain and difficulty sleeping. CT DLP: 1665 mGycm. Automated Exposure Control for Dose Reduction was Utilized. CONTRAST: CT scan of the thorax, abdomen and pelvis is performed with IV Contrast, patient injected with 100 mL of Isovue 300. FINDINGS: LUNGS: Background mild underlying emphysematous change. Persistent scarlike opacity left suprahilar r egion extending anteriorly axial images 20 through 24 not significantly changed from most recent CT. Areas of hypermetabolic nodularity posteriorly on most recent PET/CT are not well identified on this study is similar to most recent CT. There is some mild linear scarring in the left lower lung remains present. No new nodules. Right lung shows perihilar and bronchovascular groundglass opacities with mild central bronchiectasis with some central right upper lobe extension, no significant change from most recent CT. Suspect pos ttreatment or radiation changes. No new right-sided nodules or masses. No pleural effusion or pneumothorax is noted bilaterally. MEDIASTINUM: There is further decrease in size in the prior abnormal hypervascular AP window lymph no de now measuring 11 x 6 mm current study axial image 18. Stable prominent subcentimeter subcarinal ly mph node axial image [address] Some soft tissue fullness right hilar region axial image 24 not significantly changed from prior study coronal image 62. No definitive new greater than 1 cm thoracic adenopathy. Enlarged main pulmonary artery at 3.4 cm axial image 23. CT findings consistent with underlying pulmonary hypertension. No pericardial effusion is seen. Stable mild cardiomegaly. C oronary artery calcification is redemonstrated. LIVER/GB: Mild central extrahepatic biliary dilatation a 12 mm coronal image 46 not significantly loy nged from most recent CT. No new intrahepatic biliary dilatation. Gallbladder noted surgically absent . PANCREAS: No significant abnormality is seen. SPLEEN: Mild splenomegaly at 13.7 cm long axis coronal image 70. ADRENALS: Stable small 1.5 right adrenal nodule image 55 and 1.2 cm left adrenal nodule posterior ng b axial image 55. KIDNEYS: Subcentimeter thin-walled cyst anterior right kidney series 6 image 67 is stable presumed be nign. There is additional stable 2.1 cm low dense lesion medially lower pole of the right kidney imag e 71 presumed benign thin-walled cyst. Mildly distended bladder. BOWEL: Oral contrast does not reach level of terminal ileum making evaluation of distal bowel slightl y suboptimal. No suspicious small or large bowel dilatation. GENITAL ORGANS: Uterus is surgically absent. Remnant left ovary suspected axial image 90. LYMPH NODES: No greater than 1cm abdominal or pelvic lymph nodes are appreciated. OSSEOUS STRUCTURES: Postsurgical change L2-S1 levels is redemonstrated. Posterior decompression díaz es noted. Moderate narrowing of both hip joints. OTHER: Moderate to severe mixed plaque of the aorta extends into branch vessels. IMPRESSION: Overall stable findings from most recent CT consistent with treated neoplasm. No new or enlarging mass or adenopathy identified to suggest active neoplastic recurrence.
== END | disposition home or self-care (01) ==
LOC: RADCTMAIN 11:47
PROVIDERS: ATTEND Internal Medicine Hematology & Oncology
DX: C34.90 Malignant neoplasm of unspecified part of unspecified bronchus or lung (principal)
CPT/HCPCS: 82565; 84520; 71260; 74177; 36415; Q9967

== ENCOUNTER 2020-09-21 16:20 | Observation (INO) | payer MEDICARE ==
[2020-09-21] MEDS ORDERED: SODIUM CHLORIDE 0.9% 1,000 ML IV STA (16:40)
[2020-09-21] MEDS ORDERED: ONDANSETRON 4 MG/2 ML VIAL IVP STA (16:40)
[2020-09-21] MEDS ORDERED: HYDROmorphone 0.5 MG/0.5 ML SYRINGE IVP STA ×2 (16:40→19:39)
--- NOTE | 2020-09-21 16:42 | ED ---
Abdominal Pain HPI - General Source: patient, RN notes reviewed Mode of arrival: ambulatory Limitations: no limitations <Noah Graham - Last Filed: 09/21/20 16:40> <Seamus James - Last Filed: 09/21/20 20:08> - General Chief Complaint: Abdominal Pain Stated Complaint: NVD, Back Pain Time Seen by Provider: 09/21/20 16:28 - History of Present Illness Initial Comments: 75-year-old female presents emergency from chief complaint of bilateral flank pain. Patient states pain started on Friday and has progressively worsened with associated nausea vomiting. Patient's had some diarrhea as a cast patient dysuria hematuria no melena hematochezia and no hematemesis or coffee-ground emesis. Patient reports chills no fever. Patient states her last chemotherapy for lung cancer was Friday. Patient is being treated by Dr. Gil. Patient had prior cholecystomy, appendectomy, hysterectomy (Noah Graham) - Related Data Home Medications Medication Instructions Recorded Confirmed Fenofibrate 160 mg PO DAILY 06/30/19 09/21/20 metFORMIN HCL [Glucophage] 500 mg PO PC-SUPPER 06/30/19 09/21/20 Simvastatin [Zocor] 20 mg PO HS 07/13/19 09/21/20 Pembrolizumab [Keytruda] 1 dose IVPB Q14D 06/15/20 09/21/20 Furosemide [Lasix] 40 mg PO DAILY 09/21/20 09/21/20 Metoprolol Tartrate [Lopressor] 75 mg PO TID 09/21/20 09/21/20 Spironolactone 12.5 mg PO DAILY 09/21/20 09/21/20 lisinopriL [Zestril] 5 mg PO HS 09/21/20 09/21/20 Previous Rx's Medication Instructions Recorded Apixaban [Eliquis] 5 mg PO BID 30 Days #60 tab 05/29/20 Allergies Allergy/AdvReac Type Severity Reaction Status Date / Time morphine AdvReac Severe Nausea & Verified 09/21/20 17:59 Vomiting cefuroxime [From Ceftin] AdvReac Unknown Nausea Verified 09/21/20 17:59 Sulfa (Sulfonamide AdvReac Unknown Nausea, Verified 09/21/20 17:59 Antibiotics) lightheaded Review of Systems ROS Other: All systems not noted in ROS Statement are negative. <Noah Graham - Last Filed: 09/21/20 16:40> ROS Other: All systems not noted in ROS Statement are negative. <Seamus James - Last Filed: 09/21/20 20:08> ROS Statement: Those systems with pertinent positive or pertinent negative responses have been documented in the HPI. Past Medical History Past Medical History: Atrial Fibrillation, Cancer, Diabetes Mellitus, Hypertension Additional Past Medical History / Comment(s): mass left lung Jul 2019, cough, occasional phlegm. History of Any Multi-Drug Resistant Organisms: None Reported Past Surgical History: Back Surgery, Hysterectomy Additional Past Surgical History / Comment(s): Exploratory surgery, plan for lung biopsy Jul 19 2019 Past Anesthesia/Blood Transfusion Reactions: No Reported Reaction Past Psychological History: No Psychological Hx Reported Smoking Status: Former smoker Past Alcohol Use History: Occasional Past Drug Use History: None Reported - Past Family History Mother Family Medical History: Cancer Additional Family Medical History / Comment(s): BRAIN CANCER. Sister(s) Family Medical History: Cancer Additional Family Medical History / Comment(s): BREAST AND PANCREATIC CANCER. <Noah Graham - Last Filed: 09/21/20 16:40> General Exam Limitations: no limitations General appearance: alert, in no apparent distress Head exam: Present: atraumatic, normocephalic, normal inspection Neck exam: Present: normal inspection. Absent: tenderness, meningismus, lymphadenopathy Respiratory exam: Present: normal lung sounds bilaterally. Absent: respiratory distress, wheezes, rales, rhonchi, stridor Cardiovascular Exam: Present: regular rate, normal rhythm, normal heart sounds. Absent: systolic murmur, diastolic murmur, rubs, gallop, clicks GI/Abdominal exam: Present: soft, tenderness, normal bowel sounds. Absent: distended, guarding, rebound, rigid Back exam: Absent: CVA tenderness (R), CVA tenderness (L) Neurological exam: Present: alert, oriented X3 Skin exam: Present: warm, dry, intact, normal color. Absent: rash <Noah Graham - Last Filed: 09/21/20 16:40> Course Vital Signs 09/21/20 16:22 Temperature 97.1 F L Pulse Rate 58 L Respiratory 18 Rate Blood Pressure 144/82 O2 Sat by Pulse 97 Oximetry Medical Decision Making - Lab Data Result diagrams: 09/21/20 16:40 09/21/20 16:40 <Seamus James - Last Filed: 09/21/20 20:08> - Medical Decision Making Patient was sent out to me by previous shift physician child nutrition assistant Noah graham. Briefly, patient is a 75-year-old female past medical history of lung cancer. She presents to the emergency department for chief complaint of bilateral flank pain. States that her wraps to the front. Since he with nausea and vomiting. She recently had chemotherapy treatment. Laboratory evaluation is within acceptable limits. Her metabolic panel is unremarkable. Urinalysis is negative. Computed tomography scan of the abdomen and pelvis shows mildly increased intrahepatic biliary ductal dilatation compared to 3 years ago. There is also an increase in, and bile duct dilatation measuring 14 mm previously 12 mm 3 days ago. Radiology recommends follow-up with MRCP. Patient evaluated at bedside. She does have pain in the right upper quadrant that radiates to the back. Disposition options were discussed. Patient would prefer to be admitted. We'll consult GI doctor. Patient be admitted to [facility] hospitalist group. (Seamus James) - Lab Data Lab Results 09/21/20 09/21/20 09/21/20 Range/Units 16:40 16:40 16:40 WBC 3.7 L (3.8-10.6) k/uL RBC 4.13 (3.80-5.40) m/uL Hgb 11.2 L (11.4-16.0) gm/dL Hct 35.1 (34.0-46.0) % MCV 84.9 (80.0-100.0) fL MCH 27.2 (25.0-35.0) pg MCHC 32.0 (31.0-37.0) g/dL RDW 18.0 H (11.5-15.5) % Plt Count 217 (150-450) k/uL MPV 7.5 Neutrophils % (Manual) 74 % Band Neuts % (Manual) 2 % Lymphocytes % (Manual) 14 % Monocytes % (Manual) 9 % Metamyelocytes % 3 % Neutrophils # (Manual) 2.80 (1.3-7.7) k/uL Lymphocytes # (Manual) 0.52 L (1.0-4.8) k/uL Monocytes # (Manual) 0.33 (0-1.0) k/uL Metamyelocytes # (Man) 0.11 H (0) k/uL Nucleated RBCs 0 (0-0) /100 WBC Polychromasia Present Anisocytosis Slight PT 11.4 (9.0-12.0) sec INR 1.1 (<1.2) APTT 26.5 (22.0-30.0) sec Sodium 133 L (137-145) mmol/L Potassium 4.2 (3.5-5.1) mmol/L Chloride 99 (98-107) mmol/L Carbon Dioxide 24 (22-30) mmol/L Anion Gap 10 mmol/L BUN 16 (7-17) mg/dL Creatinine 0.84 (0.52-1.04) mg/dL Est GFR (CKD-EPI)AfAm 79 (>60 ml/min/1.73 sqM) Est GFR (CKD-EPI)NonAf 69 (>60 ml/min/1.73 sqM) Glucose 118 H (74-99) mg/dL Plasma Lactic Acid Praful (0.7-2.0) mmol/L Calcium 9.5 (8.4-10.2) mg/dL Total Bilirubin 0.4 (0.2-1.3) mg/dL AST 23 (14-36) U/L ALT 10 (4-34) U/L Alkaline Phosphatase 43 (38-126) U/L Total Protein 7.2 (6.3-8.2) g/dL Albumin 4.4 (3.5-5.0) g/dL Amylase 36 (30-110) U/L Lipase 106 (23-300) U/L Urine Color Urine Appearance (Clear) Urine pH (5.0-8.0) Ur Specific [place] (1.001-1.035) Urine Protein (Negative) Urine Glucose (UA) (Negative) Urine Ketones (Negative) Urine Blood (Negative) Urine Nitrite (Negative) Urine Bilirubin (Negative) Urine Urobilinogen (<2.0) mg/dL Ur Leukocyte Esterase (Negative) Urine RBC (0-5) /hpf Urine WBC (0-5) /hpf Ur Squamous Epith Cells (0-4) /hpf Urine Bacteria (None) /hpf Urine Mucus (None) /hpf 09/21/20 09/21/20 Range/Units 16:40 16:54 WBC (3.8-10.6) k/uL RBC (3.80-5.40) m/uL Hgb (11.4-16.0) gm/dL Hct (34.0-46.0) % MCV (80.0-100.0) fL MCH (25.0-35.0) pg MCHC (31.0-37.0) g/dL RDW (11.5-15.5) % Plt Count (150-450) k/uL MPV Neutrophils % (Manual) % Band Neuts % (Manual) % Lymphocytes % (Manual) % Monocytes % (Manual) % Metamyelocytes % % Neutrophils # (Manual) (1.3-7.7) k/uL Lymphocytes # (Manual) (1.0-4.8) k/uL Monocytes # (Manual) (0-1.0) k/uL Metamyelocytes # (Man) (0) k/uL Nucleated RBCs (0-0) /100 WBC Polychromasia Anisocytosis PT (9.0-12.0) sec INR (<1.2) APTT (22.0-30.0) sec Sodium (137-145) mmol/L Potassium (3.5-5.1) mmol/L Chloride (98-107) mmol/L Carbon Dioxide (22-30) mmol/L Anion Gap mmol/L BUN (7-17) mg/dL Creatinine (0.52-1.04) mg/dL Est GFR (CKD-EPI)AfAm (>60 ml/min/1.73 sqM) Est GFR (CKD-EPI)NonAf (>60 ml/min/1.73 sqM) Glucose (74-99) mg/dL Plasma Lactic Acid Praful 1.2 (0.7-2.0) mmol/L Calcium (8.4-10.2) mg/dL Total Bilirubin (0.2-1.3) mg/dL AST (14-36) U/L ALT (4-34) U/L Alkaline Phosphatase (38-126) U/L Total Protein (6.3-8.2) g/dL Albumin (3.5-5.0) g/dL Amylase (30-110) U/L Lipase (23-300) U/L Urine Color Light Yellow Urine Appearance Cloudy H (Clear) Urine pH 5.5 (5.0-8.0) Ur Specific [place] 1.012 (1.001-1.035) Urine Protein Negative (Negative) Urine Glucose (UA) Negative (Negative) Urine Ketones Negative (Negative) Urine Blood Negative (Negative) Urine Nitrite Negative (Negative) Urine Bilirubin Negative (Negative) Urine Urobilinogen <2.0 (<2.0) mg/dL Ur Leukocyte Esterase Trace H (Negative) Urine RBC <1 (0-5) /hpf Urine WBC 4 (0-5) /hpf Ur Squamous Epith Cells 8 H (0-4) /hpf Urine Bacteria Rare H (None) /hpf Urine Mucus Rare H (None) /hpf Disposition <Noah Graham - Last Filed: 09/21/20 16:40> Decision Time: 20:08 <Seamus James - Last Filed: 09/21/20 20:08> Clinical Impression: Abdominal pain Disposition: ADMITTED IP TO THIS HOSP Condition: Fair Referrals: Francisco Ramirez DO [Primary Care Provider] - 1-2 days
[2020-09-21 17:45] LABS: Appearance,Urine Cloudy (Clear); Bacteria,Urine Rare /hpf; Bilirubin,Urine Negative (Negative); Blood,Urine Negative (Negative); Color,Urine Light Yellow; Glucose,Urine (UA) Negative (Negative); Ketones,Urine Negative (Negative); Leukocyte Esterase,Urine Trace (Negative); Mucus,Urine Rare /hpf; Nitrite,Urine Negative (Negative); PH, Urine 5.5 (5.0-8.0); Protein,Urine Negative (Negative); RBC,Urine <1 /hpf (0-5); Specific Gravity,Urine 1.012 (1.001-1.035); Squamous Epithelial Cell,Urine 8 /hpf (0-4); Urobilinogen,Urine <2.0 mg/dL (<2.0); WBC,Urine 4 /hpf (0-5)
[2020-09-21 17:49] LABS: Albumin 4.4 g/dL (3.5-5.0); Calcium 9.5 mg/dL (8.4-10.2); Potassium 4.2 mmol/L (3.5-5.1); Total Bilirubin 0.4 mg/dL (0.2-1.3); Total Protein 7.2 g/dL (6.3-8.2)
[2020-09-21 17:54] LABS: INR 1.1 (<1.2); Partial Thromboplastin Time 26.5 sec (22.0-30.0); Prothrombin Time 11.4 sec (9.0-12.0)
[2020-09-21 17:55] LABS: Anisocytosis Slight; HCT 35.1 % (34.0-46.0); HGB 11.2 gm/dL (11.4-16.0); MCH 27.2 pg (25.0-35.0); MCV 84.9 fL (80.0-100.0); Mean Platelet Volume 7.5; Platelet Count 217 k/uL (150-450); RBC 4.13 m/uL (3.80-5.40); WBC 3.7 k/uL (3.8-10.6)
[2020-09-21 18:37] LABS: Band Neutrophils % 2 %; Lymphocytes # (M) 0.52 k/uL (1.0-4.8); Metamyelocytes # (M) 0.11 k/uL (0); Metamyelocytes % 3 %; Monocytes # (M) 0.33 k/uL (0-1.0); Neutrophils % (M) 74 %; Nucleated Red Blood Cells 0 /100 WBC (0-0); Polychromasia Present; Total Cells Counted 200
--- NOTE | 2020-09-21 19:55 | CT ---
EXAMINATION TYPE: CT abdomen pelvis w con DATE OF EXAM: 09/21/2020 COMPARISON: 09/18/2020. History of lung cancer. HISTORY: Back pain wrapping anteriorly around abdomen. CT DLP: 1410.4 mGycm Automated exposure control for dose reduction was used. TECHNIQUE: Helical acquisition of images was performed from the lung bases through the pelvis. CONTRAST: Performed without Oral Contrast and with IV Contrast, patient injected with 100 mL of Isovue 300. FINDINGS: LUNG BASES: No pericardial or pleural effusion. Calcified coronary artery disease. LIVER: Normal. BILIARY SYSTEM: Status post cholecystectomy with redemonstrated mild intrahepatic biliary ductal dila tation. The common bile duct measures up to 14 mm, previously 12 mm on 09/18/2020. PANCREAS: Normal. SPLEEN: Mildly prominent, unchanged. ADRENALS: Redemonstrated bilateral adrenal nodules. KIDNEYS: No hydronephrosis bilaterally. Redemonstrated renal cysts and too small to characterize hypo dense lesion. BOWEL: No obstruction or thickening. PERITONEUM: No pneumoperitoneum. No free fluid. LYMPH NODES: No lymphadenopathy. PELVIS: Normal urinary bladder. Status post hysterectomy. VASCULATURE: No abdominal aortic aneurysm. MUSCULOSKELETAL: Degenerative changes of the spine. Postsurgical changes and posterior fixation hard frank of the lumbosacral spine. IMPRESSION: Status post cholecystectomy. There is mildly increased intrahepatic biliary ductal dilatation versus 09/18/2020. There is also increased common bile duct dilatation measuring 14 mm, previously 12 mm on . Recommend follow-up with MRCP.
[2020-09-21] MEDS ORDERED: NALOXONE 0.4 MG/ML 1 ML VIAL IV PRN (20:08)
[2020-09-21] MEDS: SODIUM CHLORIDE 0.9% 1,000 ML IV SCH (23:32)
[2020-09-22] MEDS: HYDROmorphone 0.5 MG/0.5 ML SYRINGE IVP PRN ×3 (02:19→12:47)
[2020-09-22] MEDS ORDERED: PEMBROLIZUMAB 100 MG/4 ML MISCELLANE SCH (08:45)
[2020-09-22] MEDS: FUROSEMIDE 40 MG TAB PO SCH (10:27)
[2020-09-22] MEDS: METOPROLOL TARTRATE 25 MG TAB PO SCH ×3 (10:27→21:36)
[2020-09-22] MEDS: SPIRONOLACTONE 25 MG TAB PO SCH (10:28)
[2020-09-22] MEDS: FENOFIBRATE 160 MG TAB PO SCH (10:40)
--- NOTE | 2020-09-22 11:54 | P.HPIM ---
History of Present Illness This is a pleasant 75 years old female with past medical history of atrial fibrillation, diabetes mellitus, hypertension, left lung mass on July 2019. She has diagnosed with lung cancer and follow-up with Dr. Gil her last mike motherapy was about 2 weeks ago Patient presents because of abdominal pain and nausea vomiting Patient presents because of bilateral lower back/flank pain and tenderness for the last 3 days about 7/10 in severity, and down to 3/10 currently. Pain located around a decreased area with mild tenderness going around anteriorly towards the umbilicus and from both sides. A little like sharp per patient description/stabbing. Yesterday she had diarrhea and vomiting but stopped today. No bowel movement today. She ate her breakfast with no issues. No urinary complaints. No headache or weakness or numbness. No fever. She denies smoking, alcohol or illicit drugs Vitals looks stable, her oxygen saturation is 93% on room air. A febrile, rest of vitals are stable Left showing the Lori 3.7K, hemoglobin 11.2, platelets normal to 17 K. INR is 1.1, BMP and liver enzymes are unremarkable. Bilirubin is normal 0.4. Urine analysis is strongly suspicious for infection. Dhillon virus not detected CT of the abdomen and pelvis: Dilated common bile duct 14 mm compared to 12 mm on 09/18/20 that's about 5 days ago. Also there is increased intrahepatic biliary ductal dilatation. MRCP is recommended by radiologist Patient had CT of the chest, abdomen and pelvis done on 09/[address] Gil oncologist: Emphysema, no new nodules. No pleural effusion. Enlarged mediastinal lymph nodes. Enlarged pulmonary artery consistent with underlying pulmonary hypertension. Gallbladder is surgically absent. No new mass already neuropathy to suggest active neoplastic process In the emergency room she received Dilaudid and Zofran and some IV fluids Review of Systems CONSTITUTIONAL: No fever, no malaise, no fatigue. HEENT: No recent visual problems or hearing problems. Denied any sore throat. CARDIOVASCULAR: No orthopnea, PND, no palpitations, no syncope. PULMONARY: No shortness of breath, no cough, no hemoptysis. GASTROINTESTINAL: No diarrhea, no nausea, no vomiting. Normoactive bowel sounds. NEUROLOGICAL: No headaches, no weakness, no numbness. HEMATOLOGICAL: Denies any bleeding or petechiae. GENITOURINARY: Denies any burning micturition, frequency, or urgency. MUSCULOSKELETAL/RHEUMATOLOGICAL: Denies any joint pain, swelling, or any muscle pain. ENDOCRINE: Denies any polyuria or polydipsia. Past Medical History Past Medical History: Atrial Fibrillation, Cancer, Diabetes Mellitus, Hypertension Additional Past Medical History / Comment(s): mass left lung Jul 2019, cough, occasional phlegm. History of Any Multi-Drug Resistant Organisms: None Reported Past Surgical History: Back Surgery, Cholecystectomy, Hysterectomy Additional Past Surgical History / Comment(s): Exploratory surgery, plan for lung biopsy Jul 19 2019 Past Anesthesia/Blood Transfusion Reactions: No Reported Reaction Past Psychological History: No Psychological Hx Reported Smoking Status: Former smoker Past Alcohol Use History: Occasional Additional Past Alcohol Use History / Comment(s): STARTED SMOKING AGE 21. Patient states she quit smoking jul 2019 Past Drug Use History: None Reported - Past Family History Mother Family Medical History: Cancer Additional Family Medical History / Comment(s): BRAIN CANCER. Sister(s) Family Medical History: Cancer Additional Family Medical History / Comment(s): BREAST AND PANCREATIC CANCER. Medications and Allergies Home Medications Medication Instructions Recorded Confirmed Type Fenofibrate 160 mg PO DAILY 06/30/19 09/21/20 History metFORMIN HCL [Glucophage] 500 mg PO PC-SUPPER 06/30/19 09/21/20 History Simvastatin [Zocor] 20 mg PO HS 07/13/19 09/21/20 History Apixaban [Eliquis] 5 mg PO BID 30 Days #60 tab 05/29/20 09/21/20 Rx Pembrolizumab [Keytruda] 1 dose IVPB Q14D 06/15/20 09/21/20 History Furosemide [Lasix] 40 mg PO DAILY 09/21/20 09/21/20 History Metoprolol Tartrate [Lopressor] 75 mg PO TID 09/21/20 09/21/20 History Spironolactone 12.5 mg PO DAILY 09/21/20 09/21/20 History lisinopriL [Zestril] 5 mg PO HS 09/21/20 09/21/20 History Allergies Allergy/AdvReac Type Severity Reaction Status Date / Time morphine AdvReac Severe Nausea & Verified 09/21/20 17:59 Vomiting cefuroxime [From Ceftin] AdvReac Unknown Nausea Verified 09/21/20 17:59 Sulfa (Sulfonamide AdvReac Unknown Nausea, Verified 09/21/20 17:59 Antibiotics) lightheaded Physical Exam Vitals: Vital Signs Temp Pulse Pulse Resp BP BP BP 09/22/20 09:53 120/51 09/22/20 08:04 97.5 F L 78 16 132/71 09/22/20 05:30 98.3 F 64 16 123/61 09/22/20 04:17 98.3 F 71 18 101/55 09/21/20 23:03 97.6 F 73 16 154/73 09/21/20 21:12 53 L 16 117/54 09/21/20 16:22 97.1 F L 58 L 18 144/82 Pulse Ox 09/22/20 09:53 09/22/20 08:04 93 L 09/22/20 05:30 93 L 09/22/20 04:17 94 L 09/21/20 23:03 92 L 09/21/20 21:12 95 09/21/20 16:22 97 Intake and Output 09/21/20 09/22/20 09/22/20 22:59 06:59 14:59 Intake Total 700 Balance 700 Intake: Intake, IV Titration 200 Amount Sodium Chloride 0.9% 1, 200 000 ml @ 20 mls/hr IV . Q24H [facility] Rx#:[id number] Oral 500 Other: Voiding Method Toilet # Voids 1 Weight 86.183 kg GENERAL: The patient is alert and oriented x3, not in any acute distress. Well developed, well nourished. HEENT: Pupils are round and equally reacting to light. EOMI. No scleral icterus. No conjunctival pallor. Normocephalic, atraumatic. No pharyngeal erythema. No thyromegaly. CARDIOVASCULAR: S1 and S2 present. No murmurs, rubs, or gallops. PULMONARY: Chest is clear to auscultation, no wheezing or crackles. ABDOMEN: Soft, nontender, nondistended, normoactive bowel sounds. No palpable organomegaly. -MUSCULOSKELETAL: No joint swelling or deformity. Mild bilateral iliac crest area tenderness EXTREMITIES: No cyanosis, clubbing, or pedal edema. NEUROLOGICAL: Gross neurological examination did not reveal any focal deficits. SKIN: No rashes. No petechiae Results CBC & Chem 7: 09/21/20 16:40 09/21/20 16:40 Labs: Abnormal Lab Results - Last 24 Hours (Table) 09/21/20 09/21/20 09/21/20 Range/Units 16:40 16:40 16:54 WBC 3.7 L (3.8-10.6) k/uL Hgb 11.2 L (11.4-16.0) gm/dL RDW 18.0 H (11.5-15.5) % Lymphocytes # (Manual) 0.52 L (1.0-4.8) k/uL Metamyelocytes # (Man) 0.11 H (0) k/uL Sodium 133 L (137-145) mmol/L Glucose 118 H (74-99) mg/dL Urine Appearance Cloudy H (Clear) Ur Leukocyte Esterase Trace H (Negative) Ur Squamous Epith Cells 8 H (0-4) /hpf Urine Bacteria Rare H (None) /hpf Urine Mucus Rare H (None) /hpf Thrombosis Risk Factor Assmnt - Choose All That Apply Any of the Below Risk Factors Present?: Yes Each Factor Represents 1 point: Obesity (BMI >25) Other Risk Factors: Yes Each Risk Factor Represents 2 Points: Age 61-74 years, Malignancy Other congenital or acquired thrombophilia - If yes, enter type in comment: No Thrombosis Risk Factor Assessment Total Risk Factor Score: 5 Thrombosis Risk Factor Assessment Level: High Risk Assessment and Plan Assessment: Abdominal pain with Dilated common bile duct 14 mm compared to 12 mm on 09/18/20 Lung cancer on chemotherapy Chronic atrial fibrillation Type 2 diabetes mellitus Hypertension Plan: This is a pleasant 75 years old female with acute lung cancer undergoing chemotherapy. Presents because of abdominal pain and dilated common bile duct. Monitor liver enzymes and bilirubin. Follow-up GI consult for possible MRCP Consult hematology oncology team Labs and medication were reviewed.. Continue same treatment. Continue with symptomatic treatment. Resume home medication. Monitor lytes and vitals. DVT and GI prophylaxis. Further recommendations depends on the clinical course of the patient DVT prophylaxis: Subcutaneous heparin GI Prophylaxis: Pepcid Prognosis is guarded
[2020-09-22 12:27] LABS: Glucose,Whole Blood 106 mg/dL (75-99)
--- NOTE | 2020-09-22 15:44 | P.CONS ---
History of Present Illness - Reason for Consult Consult date: 09/22/20 Biliary ductal dilation Requesting physician: Forest E Sheet - Chief Complaint Abdominal and back pain, diarrhea - History of Present Illness 75-year-old female with medical history significant for hypertension, diabetes mellitus, atrial fibrillation, lung cancer on chemotherapy and prior cholecystectomy who presented to the hospital with a constellation of symptoms including back and abdominal pain, nausea and vomiting and diarrhea. Patient reports bilateral flank pain radiating into her abdomen and wrapping around into her back. She reports some associated nausea and vomiting with the pain. Overall pain is improved but still present. She denies any signs or symptoms of GI bleeding. She does report some loose bowel movements prior to presentation currently she states she has had no bowel movements today. Patient does have a prior history of back surgery in the past now current presentation and had a computed tomography scan of the abdomen with a normal-appearing liver, evidence of prior cholecystectomy as well as redemonstration of mild intrahepatic biliary ductal dilation with a CBD measuring 14 mm previously, millimeters. Laboratory evaluation significant for amylase 36, lipase was 106, total bilirubin 0.4, alk phos 243, AST 23 and ALT 10. Hemoglobin found to be 11.2 with a WBC 3.7 and platelet count 217,000. Review of Systems REVIEW OF SYSTEMS: CONSTITUTIONAL: Denies any fevers, chills, weight change or fatigue. CARDIOVASCULAR: Denies any chest pain, palpitations high or low blood pressures RESPIRATORY: Denies any shortness of breath, hemoptysis or cough. GENITOURINARY: No dysuria or hematuria. MUSCULOSKELETAL: No weakness reported, flank/back pain radiating to the abdomen somewhat improved. Present. SKIN: Denies any new rashes or lesions, jaundice or pallor. PSYCHIATRIC: Denies any depression or anxiety. NEUROLOGY: Denies headache, denies any new focal deficits. EARS/NOSE/THROAT: No recent hearing change, congestion, nasal discharge or sore throat. EYES: No pain in eyes, discharge or change in vision. GASTROINTESTINAL: As per HPI. Past Medical History Past Medical History: Atrial Fibrillation, Cancer, Diabetes Mellitus, Hypertension Additional Past Medical History / Comment(s): mass left lung Jul 2019, cough, occasional phlegm. History of Any Multi-Drug Resistant Organisms: None Reported Past Surgical History: Back Surgery, Cholecystectomy, Hysterectomy Additional Past Surgical History / Comment(s): Exploratory surgery, plan for lung biopsy Jul 19 2019 Past Anesthesia/Blood Transfusion Reactions: No Reported Reaction Past Psychological History: No Psychological Hx Reported Smoking Status: Former smoker Past Alcohol Use History: Occasional Additional Past Alcohol Use History / Comment(s): STARTED SMOKING AGE 21. Patient states she quit smoking jul 2019 Past Drug Use History: None Reported - Past Family History Mother Family Medical History: Cancer Additional Family Medical History / Comment(s): BRAIN CANCER. Sister(s) Family Medical History: Cancer Additional Family Medical History / Comment(s): BREAST AND PANCREATIC CANCER. Medications and Allergies Home Medications Medication Instructions Recorded Confirmed Type Fenofibrate 160 mg PO DAILY 06/30/19 09/21/20 History metFORMIN HCL [Glucophage] 500 mg PO PC-SUPPER 06/30/19 09/21/20 History Simvastatin [Zocor] 20 mg PO HS 07/13/19 09/21/20 History Apixaban [Eliquis] 5 mg PO BID 30 Days #60 tab 05/29/20 09/21/20 Rx Pembrolizumab [Keytruda] 1 dose IVPB Q14D 06/15/20 09/21/20 History Furosemide [Lasix] 40 mg PO DAILY 09/21/20 09/21/20 History Metoprolol Tartrate [Lopressor] 75 mg PO TID 09/21/20 09/21/20 History Spironolactone 12.5 mg PO DAILY 09/21/20 09/21/20 History lisinopriL [Zestril] 5 mg PO HS 09/21/20 09/21/20 History Allergies Allergy/AdvReac Type Severity Reaction Status Date / Time morphine AdvReac Severe Nausea & Verified 09/21/20 17:59 Vomiting cefuroxime [From Ceftin] AdvReac Unknown Nausea Verified 09/21/20 17:59 Sulfa (Sulfonamide AdvReac Unknown Nausea, Verified 09/21/20 17:59 Antibiotics) lightheaded Physical Exam Vitals: Vital Signs Temp Pulse Pulse Resp BP BP BP 09/22/20 12:48 98.4 F 55 L 18 126/65 09/22/20 09:53 120/51 09/22/20 08:04 97.5 F L 78 16 132/71 09/22/20 05:30 98.3 F 64 16 123/61 09/22/20 04:17 98.3 F 71 18 101/55 09/21/20 23:03 97.6 F 73 16 154/73 09/21/20 21:12 53 L 16 117/54 09/21/20 16:22 97.1 F L 58 L 18 144/82 Pulse Ox 09/22/20 12:48 95 09/22/20 09:53 09/22/20 08:04 93 L 09/22/20 05:30 93 L 09/22/20 04:17 94 L 09/21/20 23:03 92 L 09/21/20 21:12 95 09/21/20 16:22 97 Intake and Output 09/22/20 09/22/20 09/22/20 06:59 14:59 22:59 Intake Total 700 Balance 700 Intake: Intake, IV Titration 200 Amount Sodium Chloride 0.9% 1, 200 000 ml @ 20 mls/hr IV . Q24H [facility] Rx#:[id number] Oral 500 Other: Voiding Method Toilet # Voids 1 On physical examination, patient appears comfortable in no apparent distress. HEAD: Normocephalic, atraumatic. EYES: No scleral icterus. No conjunctival injection. MOUTH: No lesions, tongue midline. NECK: Trachea midline, no gross abnormalities. CHEST: Clear to auscultation with no wheezing or rhonchi appreciated. HEART: Regular rate and rhythm. ABDOMEN: Soft, nontender to palpation. Bowel sounds are positive. No organomegaly. No guarding or rigidity. EXTREMITIES: No pedal edema. SKIN: No rashes, no jaundice. NEUROLOGIC: Alert and oriented x3. No focal deficits. Results CBC & Chem 7: 09/21/20 16:40 09/21/20 16:40 Labs: Abnormal Lab Results - Last 24 Hours (Table) 09/21/20 09/21/20 09/21/20 Range/Units 16:40 16:40 16:54 WBC 3.7 L (3.8-10.6) k/uL Hgb 11.2 L (11.4-16.0) gm/dL RDW 18.0 H (11.5-15.5) % Lymphocytes # (Manual) 0.52 L (1.0-4.8) k/uL Metamyelocytes # (Man) 0.11 H (0) k/uL Sodium 133 L (137-145) mmol/L Glucose 118 H (74-99) mg/dL POC Glucose (mg/dL) (75-99) mg/dL Urine Appearance Cloudy H (Clear) Ur Leukocyte Esterase Trace H (Negative) Ur Squamous Epith Cells 8 H (0-4) /hpf Urine Bacteria Rare H (None) /hpf Urine Mucus Rare H (None) /hpf 09/22/20 Range/Units 12:26 WBC (3.8-10.6) k/uL Hgb (11.4-16.0) gm/dL RDW (11.5-15.5) % Lymphocytes # (Manual) (1.0-4.8) k/uL Metamyelocytes # (Man) (0) k/uL Sodium (137-145) mmol/L Glucose (74-99) mg/dL POC Glucose (mg/dL) 106 H (75-99) mg/dL Urine Appearance (Clear) Ur Leukocyte Esterase (Negative) Ur Squamous Epith Cells (0-4) /hpf Urine Bacteria (None) /hpf Urine Mucus (None) /hpf CT scan - abdomen: report reviewed (Computed tomography scan of the abdomen significant for a normal-appearing liver with evidence of prior cholecystectomy with mild intrahepatic biliary ductal dilation and 14 mm CBD.) Assessment and Plan (1) Dilation of biliary tract Narrative/Plan: 75-year-old female with multiple medical comorbidities including a diagnosis of lung cancer on chemotherapy who presented with back/flank and abdominal pain. CT of the abdomen and pelvis with findings of a normal-appearing liver with evidence of prior cholecystectomy and mild intrahepatic biliary dilation and a 14 mm CBD slightly increased from prior study at which time CBD was measured at 12 mm. Unclear etiology of dilation, may be normal and the postcholecystectomy state. No elevation in liver enzymes to suggest choledocholithiasis, however given presentation of abdominal pain that is for MRCP to rule out choledocholithiasis or other biliary pathology. Current Visit: Yes Status: Acute Code(s): K83.8 - OTHER SPECIFIED DISEASES OF BILIARY TRACT SNOMED Code(s): 942448939 (2) Abdominal pain Current Visit: Yes Status: Acute Code(s): R10.9 - UNSPECIFIED ABDOMINAL PAIN SNOMED Code(s): 75039652 Plan: Supportive care Okay for diet as tolerated MRCP ordered Continue to monitor CBC, BMP, LFTs Continue other medical management per primary team Further recommendations pending findings of MRCP If patient has any further loose stools will order that is for further evaluation Thank you for allowing us to participate in the care of the patient
[2020-09-22 17:35] LABS: Glucose,Whole Blood 135 mg/dL (75-99)
--- NOTE | 2020-09-22 19:25 | MR ---
MRCP HISTORY: Biliary ductal dilation on CT, epigastric pain Multiplanar multisequence imaging obtained through the abdomen with 3-dimensional reconstructions per formed through the biliary system, exam correlated to prior CT scan 09/21/2020, 07/18/2020, CT 05/18/20 and 02/22/2020 Patient is post cholecystectomy. The biliary ductal dilatation is a chronic finding on CT exams. Dila mela intrahepatic and extrahepatic biliary ducts are noted on MRI. There is no filling defect identifi ed to suggest choledocholithiasis. Pancreatic duct is not dilated. There is no evident retroperitonea l adenopathy. Small right adrenal nodule is chronic. Cystic foci associated with the kidneys on CT sh ows T2 bright appearance on MRI. Aorta shows normal caliber. There is no ascites. Spleen is mildly en larged, stable. There is artifact due to patient's fusion in the lumbar spine, degenerative disc changes are present in the visualized spine. IMPRESSION: Postcholecystectomy. Likely dilated intra and extrahepatic biliary ducts without evidence of choledocholithiasis.
[2020-09-22 20:25] LABS: Glucose,Whole Blood 228 mg/dL (75-99)
[2020-09-22] MEDS: ATORVASTATIN 10 MG TAB PO SCH (21:36)
[2020-09-22] MEDS: lisinopriL 5 MG TAB PO SCH (21:36)
[2020-09-22] MEDS: FAMOTIDINE 20 MG/2 ML VIAL IV SCH (21:36)
[2020-09-22] MEDS: SODIUM CHLORIDE 0.9% 1,000 ML IV SCH (21:36)
[2020-09-22] MEDS: HEPARIN SODIUM,PORCINE/PF 5,000 UNIT/0.5 ML SYRINGE SQ SCH (21:36)
--- NOTE | 2020-09-22 21:38 | P.CONS ---
History of Present Illness - Reason for Consult Consult date: 09/22/20 Requesting physician: Forest E Sheet - History of Present Illness This is a very nice lady who presenetd with cold symptoms and cough,started around May/2019,she had a CXR which revealed RLL lesion,CT scan of chest done on 06/09/2019 showed 2.7cm lesion in RUL,1.6cm right hilar node and focal patchy opacity in MELISA and 1.2cm indeterminate nodule of right adrenal gland. On 06/25/2019,PET scan showed significant uptake in RLL lesion,SUV of 9,uptake in right hilar node,SUV of 2.6 and SUV of 2.0 in MELISA nodular density,negative upate in right adrenal gland,otherwise negative PET/scan. On 07/02/2019,she underwent a bronchoscopy was was not diagnostic. On 07/28/2019,CT guided biopsy of RLL lesion was positive for small cell lung cancer. On 08/07/2019,brain MRI was negative for metastatic disease. On 08/18/2019,she had EBUS and staging of mediastinum,pathology was negative,the small left lung lesion at that time could not be biopsied. She started carboplatin/etoposide on 09/01/2019,had 2 cycles then she started concurrent XRT with cycle#3 and completed XRT with 2 additional cycles of carboplatin/[employer]CH[employer]ECT-16 (total 4 cycles)end of November/2019. On 02/22/[address] scan of chest revealed improvement in her right lung disease,however,there was increasing consolidation in MELISA. On 03/10/2020,repeat PET scan revealed significant improvemet in RLL disease,however,there is progression in MLEISA lesion along with suspicious left hilar and subcarinal nodes. On 04/25/2020,EBUS and FNA of station 7 was positive for squamous cell carcinoma.PDL-1 could not be done. On 05/15/2020,repeat CT scan of chest/abdomen/pelvis revealed progression of her disease in the chest. On 06/13/2020,she started carboplatin/taxol/keytruda On 07/18/2020,repeat CT scan of chest revealed improvement in her disease. She completed 4 cycles of carbo/taxol/keytruda on 08/22/2020. She started consolidation immune therapy 09/05/20. She presents to [facility] with complaints of increased weakness, abdominal pain, nausea, and persistent diarrhea. Since admission she has not had any further diarrhea. Abdominal imag ing did not reveal significant findings for colitis, although did show dilated bile duct, however liver function and bilirubin are wnl. Her pancreatic enzymes are also wnl. Review of Systems All systems: negative Constitutional: Reports as per HPI Past Medical History Past Medical History: Atrial Fibrillation, Cancer, Diabetes Mellitus, Hypertension Additional Past Medical History / Comment(s): mass left lung Jul 2019, cough, occasional phlegm. History of Any Multi-Drug Resistant Organisms: None Reported Past Surgical History: Back Surgery, Cholecystectomy, Hysterectomy Additional Past Surgical History / Comment(s): Exploratory surgery, plan for lung biopsy Jul 19 2019 Past Anesthesia/Blood Transfusion Reactions: No Reported Reaction Past Psychological History: No Psychological Hx Reported Smoking Status: Former smoker Past Alcohol Use History: Occasional Additional Past Alcohol Use History / Comment(s): STARTED SMOKING AGE 21. Patient states she quit smoking jul 2019 Past Drug Use History: None Reported - Past Family History Mother Family Medical History: Cancer Additional Family Medical History / Comment(s): BRAIN CANCER. Sister(s) Family Medical History: Cancer Additional Family Medical History / Comment(s): BREAST AND PANCREATIC CANCER. Medications and Allergies Home Medications Medication Instructions Recorded Confirmed Type Fenofibrate 160 mg PO DAILY 06/30/19 09/21/20 History metFORMIN HCL [Glucophage] 500 mg PO PC-SUPPER 06/30/19 09/21/20 History Simvastatin [Zocor] 20 mg PO HS 07/13/19 09/21/20 History Apixaban [Eliquis] 5 mg PO BID 30 Days #60 tab 05/29/20 09/21/20 Rx Pembrolizumab [Keytruda] 1 dose IVPB Q14D 06/15/20 09/21/20 History Furosemide [Lasix] 40 mg PO DAILY 09/21/20 09/21/20 History Metoprolol Tartrate [Lopressor] 75 mg PO TID 09/21/20 09/21/20 History Spironolactone 12.5 mg PO DAILY 09/21/20 09/21/20 History lisinopriL [Zestril] 5 mg PO HS 09/21/20 09/21/20 History Allergies Allergy/AdvReac Type Severity Reaction Status Date / Time morphine AdvReac Severe Nausea & Verified 09/21/20 17:59 Vomiting cefuroxime [From Ceftin] AdvReac Unknown Nausea Verified 09/21/20 17:59 Sulfa (Sulfonamide AdvReac Unknown Nausea, Verified 09/21/20 17:59 Antibiotics) lightheaded Physical Exam Vitals: Vital Signs Temp Pulse Pulse Resp BP BP Pulse Ox 09/22/20 20:08 97.7 F 63 17 118/64 96 09/22/20 12:48 98.4 F 55 L 18 126/65 95 09/22/20 09:53 120/51 09/22/20 08:04 97.5 F L 78 16 132/71 93 L 09/22/20 05:30 98.3 F 64 16 123/61 93 L 09/22/20 04:17 98.3 F 71 18 101/55 94 L 09/21/20 23:03 97.6 F 73 16 154/73 92 L Intake and Output 09/22/20 09/22/20 09/22/20 06:59 14:59 22:59 Intake Total 700 Balance 700 Intake: Intake, IV Titration 200 Amount Sodium Chloride 0.9% 1, 200 000 ml @ 20 mls/hr IV . Q24H [facility] Rx#:[id number] Oral 500 Other: Voiding Method Toilet # Voids 1 2 - Constitutional General appearance: cooperative, no acute distress - EENT Eyes: EOMI, PERRLA ENT: hard of hearing, NA/AT - Neck Neck: normal ROM - Respiratory Respiratory: bilateral: diminished - Cardiovascular Rhythm: regular - Gastrointestinal General gastrointestinal: distended, soft, tenderness - Integumentary Integumentary: pale - Neurologic Neurologic: CNII-XII intact - Musculoskeletal Musculoskeletal: generalized weakness, strength equal bilaterally - Psychiatric Psychiatric: A&O x's 3, appropriate affect, intact judgment & insight Results CBC & Chem 7: 09/21/20 16:40 09/21/20 16:40 Labs: Abnormal Lab Results - Last 24 Hours (Table) 09/22/20 09/22/20 09/22/20 Range/Units 12:26 17:32 20:23 POC Glucose (mg/dL) 106 H 135 H 228 H (75-99) mg/dL CT scan - abdomen: report reviewed CT scan - pelvis: report reviewed Assessment and Plan (1) Diarrhea Current Visit: Yes Status: Acute Code(s): R19.7 - DIARRHEA, UNSPECIFIED SNOMED Code(s): 76433159 (2) Community acquired pneumonia Current Visit: No Status: Acute Code(s): J18.9 - PNEUMONIA, UNSPECIFIED ORGANISM SNOMED Code(s): 367541739 (3) Lung cancer Current Visit: No Status: Acute Code(s): C34.90 - MALIGNANT NEOPLASM OF UNSP PART OF UNSP BRONCHUS OR LUNG SNOMED Code(s): 342645734 (4) Squamous cell lung cancer Current Visit: No Status: Acute Priority: High Code(s): C34.90 - MALIGNANT NEOPLASM OF UNSP PART OF UNSP BRONCHUS OR LUNG SNOMED Code(s): 973928007 Plan: At this time monitor for IO side effects NPO except ice chips MOnitor labs Stool Studies if further diarrhea Supportive care Physician Attest: I have completed the full history and physical and agree with above dictation, dictated as a scribe.
[2020-09-23] MEDS: HYDROmorphone 0.5 MG/0.5 ML SYRINGE IVP PRN (05:08)
[2020-09-23 06:27] LABS: Anisocytosis Slight; Basophils % (A) 1 %; Eosinophils # (A) 0.1 k/uL (0-0.7); Eosinophils % (A) 3 %; HCT 32.4 % (34.0-46.0); HGB 11.2 gm/dL (11.4-16.0); Lymphocytes # (A) 0.6 k/uL (1.0-4.8); Lymphocytes % (A) 20 %; MCH 29.4 pg (25.0-35.0); MCHC 34.4 g/dL (31.0-37.0); MCV 85.4 fL (80.0-100.0); Mean Platelet Volume 7.4; Monocytes # (A) 0.4 k/uL (0-1.0); Monocytes % (A) 13 %; Neutrophils # (A) 1.8 k/uL (1.3-7.7); Neutrophils % (A) 60 %; Platelet Count 202 k/uL (150-450); RBC 3.79 m/uL (3.80-5.40); RDW 17.5 % (11.5-15.5); WBC 3.1 k/uL (3.8-10.6)
[2020-09-23 07:19] LABS: Glucose,Whole Blood 131 mg/dL (75-99)
[2020-09-23 07:37] LABS: ALT 10 U/L (4-34); AST 24 U/L (14-36); African American GFR (CKD) 78 (>60 ml/min/1.73 sqM); Albumin 4.1 g/dL (3.5-5.0); Albumin/Globulin Ratio 1.6; Alkaline Phosphatase 43 U/L (38-126); Anion Gap 6 mmol/L; Blood Urea Nitrogen 17 mg/dL (7-17); Calcium 9.4 mg/dL (8.4-10.2); Carbon Dioxide 28 mmol/L (22-30); Chloride 98 mmol/L (98-107); Globulin 2.6 g/dL; Glucose 120 mg/dL (74-99); Non-African American GFR(CKD) 68 (>60 ml/min/1.73 sqM); Potassium 4.5 mmol/L (3.5-5.1); Sodium 132 mmol/L (137-145); Total Bilirubin 0.4 mg/dL (0.2-1.3); Total Protein 6.7 g/dL (6.3-8.2)
[2020-09-23] MEDS: SPIRONOLACTONE 25 MG TAB PO SCH (08:18)
[2020-09-23] MEDS: HEPARIN SODIUM,PORCINE/PF 5,000 UNIT/0.5 ML SYRINGE SQ SCH ×2 (08:18→21:12)
[2020-09-23] MEDS: FENOFIBRATE 160 MG TAB PO SCH (08:18)
[2020-09-23] MEDS: FUROSEMIDE 40 MG TAB PO SCH (08:18)
[2020-09-23] MEDS: FAMOTIDINE 20 MG/2 ML VIAL IV SCH ×2 (08:18→21:12)
[2020-09-23] MEDS: METOPROLOL TARTRATE 25 MG TAB PO SCH ×3 (08:18→21:02)
[2020-09-23 11:20] LABS: Glucose,Whole Blood 184 mg/dL (75-99)
--- NOTE | 2020-09-23 12:14 | P.PN ---
Subjective Progress Note Date: 09/23/20 Principal diagnosis: Biliary ductal dilation The patient is seen sitting bedside today. No acute complaints. Tolerating diet. No abdominal pain but she is having some back pain. Objective - Vital Signs Vital signs: Vital Signs Temp 97.6 F 09/23/20 04:50 Pulse 58 L 09/23/20 08:20 Resp 16 09/23/20 04:50 BP 132/72 09/23/20 04:50 Pulse Ox 94 L 09/23/20 04:50 Intake & Output 09/22/20 09/23/20 09/23/20 18:59 06:59 18:59 Intake Total 600 Balance 600 Intake: Oral 600 Other: Voiding Method Toilet Toilet # Voids 2 3 - Exam On physical examination, patient appears comfortable in no apparent distress. HEAD: Normocephalic, atraumatic. EYES: No scleral icterus. No conjunctival injection. MOUTH: No lesions, tongue midline. NECK: Trachea midline, no gross abnormalities. ABDOMEN: Soft, nontender palpation. Bowel sounds are positive. No organomegaly. No guarding or rigidity. EXTREMITIES: No pedal edema. SKIN: No rashes, no jaundice. NEUROLOGIC: Alert and oriented x3. No focal deficits. - Labs CBC & Chem 7: 09/23/20 05:35 09/23/20 05:35 Labs: Abnormal Lab Results - Last 24 Hours (Table) 09/22/20 09/22/20 09/22/20 Range/Units 12:26 17:32 20:23 WBC (3.8-10.6) k/uL RBC (3.80-5.40) m/uL Hgb (11.4-16.0) gm/dL Hct (34.0-46.0) % RDW (11.5-15.5) % Lymphocytes # (1.0-4.8) k/uL Sodium (137-145) mmol/L Glucose (74-99) mg/dL POC Glucose (mg/dL) 106 H 135 H 228 H (75-99) mg/dL 09/23/20 09/23/20 09/23/20 Range/Units 05:35 05:35 07:17 WBC 3.1 L (3.8-10.6) k/uL RBC 3.79 L (3.80-5.40) m/uL Hgb 11.2 L (11.4-16.0) gm/dL Hct 32.4 L (34.0-46.0) % RDW 17.5 H (11.5-15.5) % Lymphocytes # 0.6 L (1.0-4.8) k/uL Sodium 132 L (137-145) mmol/L Glucose 120 H (74-99) mg/dL POC Glucose (mg/dL) 131 H (75-99) mg/dL Assessment and Plan (1) Dilation of biliary tract Narrative/Plan: 75-year-old female with multiple medical comorbidities including a diagnosis of lung cancer on chemotherapy who presented with back/flank and abdominal pain. CT of the abdomen and pelvis with findings of a normal-appearing liver with evidence of prior cholecystectomy and mild intrahepatic biliary dilation and a 14 mm CBD slightly increased from prior study at which time CBD was measured at 12 mm. Unclear etiology of dilation, may be normal and the postcholecystectomy state, with MRCP ordered an evaluation negative for any evidence of choledocholithiasis. Current Visit: Yes Status: Acute Code(s): K83.8 - OTHER SPECIFIED DISEASES OF BILIARY TRACT SNOMED Code(s): 337796810 (2) Abdominal pain Current Visit: Yes Status: Acute Code(s): R10.9 - UNSPECIFIED ABDOMINAL PAIN SNOMED Code(s): 11322079 Plan: Supportive care Okay for diet as tolerated MRCP ordered negative for any evidence of choledocholithiasis Continue to monitor CBC, BMP, LFTs Continue other medical management per primary team If patient has any further loose stools will order that is for further evaluation, however patient has had no further bowel movements since presentation which she states is her baseline Okay for discharge from GI went otherwise medically stable Thank you for allowing us to participate in the care of the patient, the GI service will stand by, please call us back with any questions or concerns
[2020-09-23 17:02] LABS: Glucose,Whole Blood 146 mg/dL (75-99)
[2020-09-23 20:41] LABS: Glucose,Whole Blood 159 mg/dL (75-99)
[2020-09-23] MEDS: lisinopriL 5 MG TAB PO SCH (21:12)
[2020-09-23] MEDS: ATORVASTATIN 10 MG TAB PO SCH (21:12)
[2020-09-23] MEDS: SODIUM CHLORIDE 0.9% 1,000 ML IV SCH (21:13)
--- NOTE | 2020-09-24 00:52 | P.PN ---
Subjective Progress Note Date: 09/23/20 Principal diagnosis: Abdominal Pain Ms. Moses is a 75-year-old female with a past medical history of atrial fibrillation, diabetes mellitus, hypertension, left lung mass on July 2019, diagnosed with lung cancer follows up with Dr. Gil and last chemotherapy was a bout 2 weeks ago coming in with a chief complaint of abdominal pain nausea vomiting. She was also having bilateral lower flank pain and started to have diarrhea and vomiting. Patient is tested negative for coronavirus and a urine analysis was suspicious for UTI. Patient had CAT scan of the abdomen and pelvis showing dilated common bile duct and increased intrahepatic bile duct dilatation. So the patient eventually had MRCP done that was negative for any evidence of choledocholithiasis. On 09/23/2020 -patient was seen and examined at bedside. She states that her abdominal pain is much better today. She denies having any nausea or vomiting. She is not having any more diarrhea. She denies having any fevers chills or rigors. No chest pain or palpitations. No dysuria or hematuria. On reviewing the vitals patient's temperature of 97.6, heart rate 40s to 60s, respiratory rate 16, blood pressure 116/54 and saturating at 96% on room air. On reviewing the labs white count of 33.1, hemoglobin 9.2, platelets 202. Sodium 132, potassium 4.5, chloride 98, bicarb 28, BUN 17, creatinine 0.85. Active Medications Atorvastatin Calcium (Atorvastatin 10 Mg Tab) 10 mg PO HS [facility] Last Admin: 09/23/20 21:12 Dose: 10 mg Documented by: Famotidine (Famotidine 20 Mg/2 Ml Vial) 20 mg IV Q12HR [facility]SIE Last Admin: 09/23/20 21:12 Dose: 20 mg Documented by: Fenofibrate (Fenofibrate 160 Mg Tab) 160 mg PO DAILY [facility] Last Admin: 09/23/20 08:18 Dose: 160 mg Documented by: Furosemide (Furosemide 40 Mg Tab) 40 mg PO DAILY [facility] Last Admin: 09/23/20 08:18 Dose: 40 mg Documented by: Heparin Sodium (Porcine) (Heparin Sodium,Porcine/Pf 5,000 Unit/0.5 Ml Syringe) 5,000 unit SQ Q12HR [facility]SIE Last Admin: 09/23/20 21:12 Dose: 5,000 unit Documented by: Hydromorphone HCl (Hydromorphone 0.5 Mg/0.5 Ml Syringe) 0.5 mg IVP Q3HR PRN PRN Reason: Pain Last Admin: 09/23/20 05:08 Dose: 0.5 mg Documented by: Sodium Chloride (Saline 0.9%) 1,000 mls @ 20 mls/hr IV .Q24H [facility] Last Admin: 09/23/20 21:13 Dose: 20 mls/hr Documented by: Lisinopril (Lisinopril 5 Mg Tab) 5 mg PO HS [facility] Last Admin: 09/23/20 21:12 Dose: 5 mg Documented by: Metoprolol Tartrate (Metoprolol Tartrate 25 Mg Tab) 75 mg PO TID [facility] Last Admin: 09/23/20 21:02 Dose: Not Given Documented by: Naloxone HCl (Naloxone 0.4 Mg/Ml 1 Ml Vial) 0.2 mg IV Q2M PRN PRN Reason: Opioid Reversal Patient's Own ( Pembrolizumab [ Keytruda] 100 Mg/4 Ml Vial) 1 dose MISCELLANE Q14D [facility] Last Admin: 09/22/20 09:58 Dose: Not Given Documented by: Spironolactone (Spironolactone 25 Mg Tab) 12.5 mg PO DAILY [facility] Last Admin: 09/23/20 08:18 Dose: 12.5 mg Documented by: Objective - Vital Signs Vital signs: Vital Signs Temp 97.6 F 09/23/20 12:32 Pulse 48 L 09/23/20 12:32 Resp 16 09/23/20 12:32 BP 116/54 09/23/20 12:32 Pulse Ox 96 09/23/20 12:32 Intake & Output 09/22/20 09/23/20 09/23/20 18:59 06:59 18:59 Intake Total 600 Balance 600 Intake: Oral 600 Other: Voiding Method Toilet Toilet # Voids 2 3 - Exam GENERAL: The patient is alert and oriented x3, not in any acute distress. Well developed, well nourished. HEENT: Pupils are round and equally reacting to light. EOMI. No scleral icterus. No conjunctival pallor. Normocephalic, atraumatic. No pharyngeal erythema. No thyromegaly. CARDIOVASCULAR: S1 and S2 present. No murmurs, rubs, or gallops. PULMONARY: Chest is clear to auscultation, no wheezing or crackles. ABDOMEN: Soft, nontender, nondistended, normoactive bowel sounds. No palpable organomegaly. -MUSCULOSKELETAL: No joint swelling or deformity. Mild bilateral iliac crest area tenderness EXTREMITIES: No cyanosis, clubbing, or pedal edema. NEUROLOGICAL: Gross neurological examination did not reveal any focal deficits. SKIN: No rashes. No petechiae - Labs CBC & Chem 7: 09/23/20 05:35 09/23/20 05:35 Labs: Abnormal Lab Results - Last 24 Hours (Table) 09/22/20 09/22/20 09/23/20 Range/Units 17:32 20:23 05:35 WBC 3.1 L (3.8-10.6) k/uL RBC 3.79 L (3.80-5.40) m/uL Hgb 11.2 L (11.4-16.0) gm/dL Hct 32.4 L (34.0-46.0) % RDW 17.5 H (11.5-15.5) % Lymphocytes # 0.6 L (1.0-4.8) k/uL Sodium (137-145) mmol/L Glucose (74-99) mg/dL POC Glucose (mg/dL) 135 H 228 H (75-99) mg/dL 09/23/20 09/23/20 09/23/20 Range/Units 05:35 07:17 11:18 WBC (3.8-10.6) k/uL RBC (3.80-5.40) m/uL Hgb (11.4-16.0) gm/dL Hct (34.0-46.0) % RDW (11.5-15.5) % Lymphocytes # (1.0-4.8) k/uL Sodium 132 L (137-145) mmol/L Glucose 120 H (74-99) mg/dL POC Glucose (mg/dL) 131 H 184 H (75-99) mg/dL Assessment and Plan Assessment: ASSESSMENT Intractable abdominal pain Dilated common bile duct History of lung cancer on chemotherapy Chronic atrial fibrillation Type 2 diabetes mellitus Hypertension Leukopenia Mild hyponatremia PLAN: Patient had MRCP that was negative for choledocholithiasis . Patient was evaluated by GI and oncology. Her abdominal pain seems to be resolving and diarrhea too. Labs and medications reviewed. Will order a.m. labs and follow. Further recommendations to follow depending on the progress of the patient.
[2020-09-24 06:40] LABS: Anisocytosis Slight; HCT 33.5 % (34.0-46.0); HGB 11.3 gm/dL (11.4-16.0); MCHC 33.9 g/dL (31.0-37.0); MCV 85.5 fL (80.0-100.0); Mean Platelet Volume 7.2; Platelet Count 196 k/uL (150-450); RBC 3.92 m/uL (3.80-5.40); RDW 17.4 % (11.5-15.5); WBC 3.2 k/uL (3.8-10.6)
[2020-09-24 07:05] LABS: Glucose,Whole Blood 143 mg/dL (75-99)
[2020-09-24 07:28] LABS: Eosinophils # (M) 0.13 k/uL (0-0.7); Monocytes # (M) 0.29 k/uL (0-1.0); Neutrophils # (M) 2.08 k/uL (1.3-7.7); Neutrophils % (M) 65 %; Nucleated Red Blood Cells 0 /100 WBC (0-0); Total Cells Counted 100
[2020-09-24] MEDS: HYDROmorphone 0.5 MG/0.5 ML SYRINGE IVP PRN (07:31)
[2020-09-24] MEDS: SPIRONOLACTONE 25 MG TAB PO SCH (07:32)
[2020-09-24] MEDS: FUROSEMIDE 40 MG TAB PO SCH (07:32)
[2020-09-24] MEDS: METOPROLOL TARTRATE 25 MG TAB PO SCH (07:32)
[2020-09-24] MEDS: HEPARIN SODIUM,PORCINE/PF 5,000 UNIT/0.5 ML SYRINGE SQ SCH (07:32)
[2020-09-24] MEDS: FAMOTIDINE 20 MG/2 ML VIAL IV SCH (07:32)
[2020-09-24] MEDS: FENOFIBRATE 160 MG TAB PO SCH (07:32)
[2020-09-24 11:20] LABS: Glucose,Whole Blood 157 mg/dL (75-99)
[2020-09-24 11:26] LABS: Albumin 4.3 g/dL (3.80-4.90); Albumin/Globulin Ratio 1.95 (1.60-3.17); Anion Gap 9.5 mmol/L (4.00-12.00); BUN/Creat Ratio 16.67 Ratio (12.00-20.00); Calcium 9.3 mg/dL (8.7-10.3); Carbon Dioxide 23.5 mmol/L (21.6-31.8); Globulin 2.2 g/dL (1.6-3.3); Potassium 4.1 mmol/L (3.5-5.5); Total Bilirubin 0.3 mg/dL (0.3-1.2); Total Protein 6.5 g/dL (6.2-8.2)
[2020-09-24 12:42] VITALS: BP 105/49; PULSE 49; RESP 14; TEMP 97.9
== END 2020-09-24 15:40 | disposition home or self-care (01) ==
LOC: EC 16:20 → 5NMEDONC 20:08
PROVIDERS: ADMIT Hospitalist; ATTEND Hospitalist
DX: R10.11 Right upper quadrant pain (principal); K83.8 Other specified diseases of biliary tract; C34.90 Malignant neoplasm of unspecified part of unspecified bronchus or lung; I48.20 Chronic atrial fibrillation, unspecified; E11.9 Type 2 diabetes mellitus without complications; I10 Essential (primary) hypertension; J18.9 Pneumonia, unspecified organism; E87.1 Hypo-osmolality and hyponatremia; I27.20 Pulmonary hypertension, unspecified; R19.7 Diarrhea, unspecified; E66.9 Obesity, unspecified; Z68.25 Body mass index [BMI] 25.0-25.9, adult; Z79.84 Long term (current) use of oral hypoglycemic drugs; Z79.899 Other long term (current) drug therapy; Z79.01 Long term (current) use of anticoagulants; Z88.5 Allergy status to narcotic agent; Z88.1 Allergy status to other antibiotic agents; Z88.2 Allergy status to sulfonamides; Z20.822 Contact with and (suspected) exposure to COVID-19; Z87.891 Personal history of nicotine dependence; Z92.3 Personal history of irradiation; Z92.21 Personal history of antineoplastic chemotherapy; Z90.710 Acquired absence of both cervix and uterus; Z90.49 Acquired absence of other specified parts of digestive tract; Z80.8 Family history of malignant neoplasm of other organs or systems; Z80.0 Family history of malignant neoplasm of digestive organs
CPT/HCPCS: 96376 ×4; 96372 ×3; 96375 ×2; 96361; 96374; 99285; 36415; 80053 ×3; 82533; 82150; 83605; 83690; 83735; 85025 ×3; 85610; 85730; 81001; 87045; 83630; 87046; 87635; 74177; 74181; G0378 ×4; J2405; J1170 ×4; Q9967; J1644 ×3

== ENCOUNTER → 2020-10-04 | Outpatient (CLI) | payer MEDICARE ==
--- NOTE | 2020-10-05 05:22 | MR ---
EXAMINATION TYPE: MR thoracic spine wo/w con DATE OF EXAM: 10/04/2020 COMPARISON: None HISTORY: Back pain, history of lung cancer CONTRAST: Standard multiplanar, multisequence MRI departmental protocol utilizing 8.5 mL intravenous Gadavist g adolinium contrast. Multiplanar multiecho imaging of the thoracic spine was performed without and with IV contrast. Thoracic vertebra have normal alignment. There is no significant compression deformity. There is a mo derate size posterior disc herniation at T12-L1 into the spinal canal. There is some impingement on t he neural elements. Disc herniation is midline and there is slight displacement of the anterior aspec t of the spinal cord. The remainder of the thoracic spinal cord appears normal. There is a minimal posterior disc bulge at T10-11 and also T7-T8. There is small area of decreased signal on the posterior aspect of the T7 vert ebral body that could be a small sequestered disc herniation. This measures 2.5 mm in thickness. Ther e is no significant in tension on the spinal cord and spinal canal. There is no thoracic paraspinal mass. I do not see any significant pathologic enhancement. IMPRESSION: T12-L1 moderate posterior disc herniation with impingement on the spinal cord. No fracture seen. No f ocal bone destruction.
== END | disposition home or self-care (01) ==
LOC: RADMRIMAIN 08:13
PROVIDERS: ATTEND Internal Medicine Hematology & Oncology
DX: M51.25 Other intervertebral disc displacement, thoracolumbar region (principal); Z85.118 Personal history of other malignant neoplasm of bronchus and lung
CPT/HCPCS: 72157; A9585

== ENCOUNTER → 2020-12-13 | Outpatient (CLI) | payer MEDICARE ==
--- NOTE | 2020-12-13 22:07 | MR ---
EXAMINATION TYPE: MR brain wo/w con DATE OF EXAM: 12/13/2020 COMPARISON: 06/14/2020 HISTORY: Malignant neoplasm of lower lobe right bronchus CONTRAST: Performed utilizing 7.5 mL intravenous Gadavist gadolinium contrast. TECHNIQUE: Multiplanar, multiecho imaging on a 3.0 Dafne magnet is performed through the brain. Stud y is performed within 24 hours of arrival to the hospital. The craniovertebral junction is normal. The pituitary is normal. Optic chiasm as visualized is norm al. The normal vascular flow voids within the visualized intracranial cerebral vasculature. Diffusion-weighted imaging is performed. No abnormal hyperintensity is present to suggest an acute i ntracranial infarct or acute ischemic change. There are multiple scattered punctate areas of hyperintensity in subcortical and periventricular deep white matter regions on T2 and Inversion Recovery weighted sequences which are non-specific but can be related to microvascular ischemic changes. Differential diagnosis could include microvascular isch emic change and multiple sclerosis. Ventricles and sulci are appropriate for the patient age. There is an enhancing mass within the inferior left temporal lobe adjacent to the petrous ridge measu ring 1.0 x 0.8 cm. Large vascular structures appear to extend either into this structure. Series 601 image 21. Adjacent brain vasogenic edema is not identified Differential diagnosis could include a men ingioma along the left tentorium. Metastatic lesion is considered less likely. IMPRESSIONS: 1. There may be trace small but enlarging meningioma along the left tentorium best visualized on the post contrast imaging. Vasogenic edema is not adjacent suggesting metastasis may be less likely. 2. There are extensive stable white matter changes within the deep white matter.
== END | disposition home or self-care (01) ==
LOC: RADMRIMAIN 10:18
PROVIDERS: ATTEND Radiology Radiation Oncology
DX: C34.31 Malignant neoplasm of lower lobe, right bronchus or lung (principal); D32.9 Benign neoplasm of meninges, unspecified
CPT/HCPCS: 70553; A9585

== ENCOUNTER → 2021-01-16 | Outpatient (CLI) | payer MEDICARE ==
--- NOTE | 2021-01-18 22:16 | CT ---
EXAMINATION TYPE: CT ChestAbdPelvis w con DATE OF EXAM: 01/16/2021 COMPARISON: 09/18/2020, 07/18/2020, 05/18/2020 HISTORY: 75-year-old female C34.12, Lung cancer. TECHNIQUE: Contiguous axial scanning of the chest, abdomen, and pelvis performed with IV Contrast, pa tient injected with 80 mL of Isovue M300. Delayed images through the kidneys were obtained. Coronal/s agittal reconstructions performed. CT DLP: 1481.5 mGycm Automated exposure control for dose reduction was used. FINDINGS: CHEST: Heart upper limits of normal in size without pericardial effusion. Three-vessel coronary calcificatio ns are present in the remarkable for coronary artery disease. Ectatic ascending aorta at 3.9 cm. Mild atherosclerotic arch calcifications. Configuration to the aortic arch. Borderline enlarged caliber to the main right and left pulmonary arteries measuring 2.5 cm, respectiv laurence, suggesting an old hypertension. Redemonstrated scattered nonenlarged mediastinal lymph nodes. No progressive lymphadenopathy by CT si ze criteria Redemonstrated left suprahilar/upper lobe bandlike opacity. However, as compared to prior exam, there is new increased soft tissue thickening/opacity extending from this region to the periphery of the l eft upper lobe measuring 6.8 x 2.7 cm on axial image 20 and 4.4 x 1.9 cm on axial image 18. Both of t hese areas are new. On the right, redemonstrated perihilar consolidation. There is some increasing consolidation extendin g posteriorly within the superior segment right lower lobe, axial images 28 and 29. Focal nodular density just adjacent, right midlung, axial image 29 measures 1.1 x 0.7 cm versus 1.1 x 0.5 cm, previously. No pleural effusion. ABDOMEN: No focal liver lesion. Stable prominence of the bile duct at 1.1 cm. Portal venous system is patent. Status post cholecystectomy. Stable 1.4 cm nodularity right adrenal gland and slight thickening of the left adrenal gland. Stable 1.8 cm cyst medial right kidney. Left kidney, spleen, and pancreas within normal limits. Moderate atherosclerotic calcifications and plaque within the abdominal aorta without aneurysm. No dilated small bowel, free fluid, or free air. No mesenteric or retroperitoneal lymphadenopathy. Mi ld stool burden. Oral contrast progressed into the ascending colon. Mild distal colonic diverticulosi s. No pericolonic inflammatory change. PELVIS: Moderate circumferential bladder wall thickening. Uterus surgically absent. Suspect visualization of the left ovary. Right ovary not clearly seen. No abnormal fluid collection the pelvis or pelvic lymph adenopathy. BONES: Moderate degenerative change at the hips. Stable sclerotic focus posterior left iliac bone. Extensive posterior lumbar fusion hardware with laminectomies. Moderate degenerative disc disease mid to lower thoracic spine and upper lumbar spine. IMPRESSION: 1. BILATERAL PERIHILAR CONSOLIDATION REDEMONSTRATED LIKELY CORRESPONDING TO SITES OF TREATED DISEASE AND RADIATION THERAPY CHANGES. HOWEVER, THERE IS INCREASING OPACITY EXTENDING FROM THIS REGION ON THE LEFT TO THE PERIPHERY OF THE LEFT UPPER LOBE MEASURING UP TO 6.8 X 2.7 CM. THIS COULD REPRESENT PROG RESSIVE RADIATION THERAPY CHANGES VERSUS RECURRENT DISEASE. EITHER SHORT INTERVAL FOLLOW-UP OR PET/CT RECOMMENDED TO REASSESS. 2. ON THE RIGHT, FOCAL OPACITY EXTENDING POSTERIORLY WITHIN THE SUPERIOR SEGMENT OF THE LOWER LOBE DUENAS S INCREASED. PROGRESSIVE RADIATION THERAPY CHANGES ARE SUSPECTED BUT SHOULD ALSO BE REASSESSED AT [place] RT INTERVAL FOLLOW-UP. 3. CAD WITH 3 VESSEL CORONARY ARTERY CALCIFICATIONS AND POSSIBLE PULMONARY ARTERIAL HYPERTENSION. 1.4 CM RIGHT ADRENAL NODULE REMAINS UNCHANGED BACK TO AT LEAST 05/18/2020. 4. MODERATE CIRCUMFERENTIAL BLADDER WALL THICKENING. CORRELATE TO EXCLUDE CYSTITIS.
== END | disposition home or self-care (01) ==
LOC: RADCTMAIN 11:50
PROVIDERS: ATTEND Internal Medicine Hematology & Oncology
DX: C34.90 Malignant neoplasm of unspecified part of unspecified bronchus or lung (principal); I25.10 Atherosclerotic heart disease of native coronary artery without angina pectoris
CPT/HCPCS: 82565; 84520; 71260; 74177; 36415; Q9967 ×2

== ENCOUNTER 2021-02-10 05:36 | Inpatient (IN) | payer MEDICARE ==
[2021-02-10] MEDS ORDERED: SODIUM CHLORIDE 0.9% 500 ML 500 ML IV STA (06:00)
[2021-02-10] MEDS ORDERED: DILTIAZEM DRIP BOLUS FROM BAG 1 MG SOLN IV ONE (06:14)
[2021-02-10] MEDS ORDERED: DILTIAZEM 125 MG in SODIUM CHLORIDE 0.9% 100 ML IV SCH (06:15)
[2021-02-10 06:36] LABS: Basophils # (A) 0.1 k/uL (0-0.2); Basophils % (A) 1 %; Eosinophils # (A) 0.3 k/uL (0-0.7); Eosinophils % (A) 4 %; HCT 39.5 % (34.0-46.0); HGB 13.2 gm/dL (11.4-16.0); Lymphocytes # (A) 0.8 k/uL (1.0-4.8); Lymphocytes % (A) 9 %; MCH 27.2 pg (25.0-35.0); MCHC 33.5 g/dL (31.0-37.0); MCV 81.2 fL (80.0-100.0); Mean Platelet Volume 7.5; Monocytes # (A) 0.6 k/uL (0-1.0); Monocytes % (A) 7 %; Neutrophils # (A) 6.6 k/uL (1.3-7.7); Neutrophils % (A) 77 %; Platelet Count 343 k/uL (150-450); RBC 4.86 m/uL (3.80-5.40); RDW 14.2 % (11.5-15.5); WBC 8.6 k/uL (3.8-10.6)
[2021-02-10 06:55] LABS: Calcium 9.8 mg/dL (8.4-10.2); Magnesium 1.9 mg/dL (1.6-2.3); Potassium 4.6 mmol/L (3.5-5.1); Total Bilirubin 0.4 mg/dL (0.2-1.3); Total Protein 7.2 g/dL (6.3-8.2)
--- NOTE | 2021-02-10 07:07 | ED ---
General Adult HPI - General Chief complaint: Shortness of Breath Stated complaint: JOSE LUIS Time Seen by Provider: 02/10/21 05:59 Source: patient, family, RN notes reviewed Mode of arrival: ambulatory Limitations: no limitations - History of Present Illness Initial comments: 75-year-old female presents emergency from chief complaint of shortness breath. Patient states that lightheaded, dizzy since yesterday. She's no chest pain no palpitations. She does have a history of A. fib currently on Eliquis. Patient denies any leg pain leg swelling no abdominal pain denies any nausea vomiting no headache no blurred vision no focal weakness. - Related Data Home Medications Medication Instructions Recorded Confirmed Fenofibrate 160 mg PO DAILY 06/30/19 09/21/20 metFORMIN HCL [Glucophage] 500 mg PO PC-SUPPER 06/30/19 09/21/20 Simvastatin [Zocor] 20 mg PO HS 07/13/19 09/21/20 Pembrolizumab [Keytruda] 1 dose IVPB Q14D 06/15/20 09/21/20 Furosemide [Lasix] 40 mg PO DAILY 09/21/20 09/21/20 Metoprolol Tartrate [Lopressor] 75 mg PO TID 09/21/20 09/21/20 Spironolactone 12.5 mg PO DAILY 09/21/20 09/21/20 lisinopriL [Zestril] 5 mg PO HS 09/21/20 09/21/20 Previous Rx's Medication Instructions Recorded Apixaban [Eliquis] 5 mg PO BID 30 Days #60 tab 05/29/20 Allergies Allergy/AdvReac Type Severity Reaction Status Date / Time morphine AdvReac Severe Nausea & Verified 02/10/21 05:43 Vomiting cefuroxime [From Ceftin] AdvReac Unknown Nausea Verified 02/10/21 05:43 Sulfa (Sulfonamide AdvReac Unknown Nausea, Verified 02/10/21 05:43 Antibiotics) lightheaded Review of Systems ROS Statement: Those systems with pertinent positive or pertinent negative responses have been documented in the HPI. ROS Other: All systems not noted in ROS Statement are negative. Past Medical History Past Medical History: Atrial Fibrillation, Cancer, Diabetes Mellitus, Hypertension Additional Past Medical History / Comment(s): mass left lung Jul 2019, cough, occasional phlegm. History of Any Multi-Drug Resistant Organisms: None Reported Past Surgical History: Back Surgery, Cholecystectomy, Hysterectomy Additional Past Surgical History / Comment(s): Exploratory surgery, plan for lung biopsy Jul 19 2019 Past Anesthesia/Blood Transfusion Reactions: No Reported Reaction Past Psychological History: No Psychological Hx Reported Smoking Status: Former smoker Past Alcohol Use History: Occasional Past Drug Use History: None Reported - Past Family History Mother Family Medical History: Cancer Additional Family Medical History / Comment(s): BRAIN CANCER. Sister(s) Family Medical History: Cancer Additional Family Medical History / Comment(s): BREAST AND PANCREATIC CANCER. General Exam Limitations: no limitations General appearance: alert, in no apparent distress Head exam: Present: atraumatic, normocephalic, normal inspection Eye exam: Present: normal appearance, PERRL, EOMI. Absent: scleral icterus, conjunctival injection, periorbital swelling ENT exam: Present: normal oropharynx, mucous membranes moist, TM's normal bila terally Neck exam: Present: normal inspection, full ROM. Absent: tenderness, meningismus, lymphadenopathy Respiratory exam: Present: normal lung sounds bilaterally. Absent: respiratory distress, wheezes, rales, rhonchi, stridor Cardiovascular Exam: Present: tachycardia, irregular rhythm, normal heart sounds. Absent: regular rate, normal rhythm, systolic murmur, diastolic murmur, rubs, gallop, clicks GI/Abdominal exam: Present: soft, normal bowel sounds. Absent: distended, tenderness, guarding, rebound, rigid Course Vital Signs 02/10/21 02/10/21 02/10/21 05:39 06:00 07:36 Temperature 97.9 F Pulse Rate 60 124 H 108 H Respiratory 24 24 16 Rate Blood Pressure 110/63 105/61 92/58 O2 Sat by Pulse 96 96 97 Oximetry Medical Decision Making - Medical Decision Making This is a 75-year-old female presents emergency Department shortness breath and dizziness. Patient found to be in A. fib, She does have a history A. fib currently anticoagulated. Patient was started on Cardizem with initial bolus. Patient. Has mildly elevated elevated BNP with no significant pleural effusions. Patient be admitted to [facility] covering for Dr. Ramirez. Patient will be continued on anticoagulants, Cardizem with cardiology evaluation - Lab Data Result diagrams: 02/10/21 06:07 02/10/21 06:07 Lab Results 02/10/21 02/10/21 02/10/21 Range/Units 06:07 06:07 06:07 WBC 8.6 (3.8-10.6) k/uL RBC 4.86 (3.80-5.40) m/uL Hgb 13.2 (11.4-16.0) gm/dL Hct 39.5 (34.0-46.0) % MCV 81.2 (80.0-100.0) fL MCH 27.2 (25.0-35.0) pg MCHC 33.5 (31.0-37.0) g/dL RDW 14.2 (11.5-15.5) % Plt Count 343 (150-450) k/uL MPV 7.5 Neutrophils % 77 % Lymphocytes % 9 % Monocytes % 7 % Eosinophils % 4 % Basophils % 1 % Neutrophils # 6.6 (1.3-7.7) k/uL Lymphocytes # 0.8 L (1.0-4.8) k/uL Monocytes # 0.6 (0-1.0) k/uL Eosinophils # 0.3 (0-0.7) k/uL Basophils # 0.1 (0-0.2) k/uL PT 13.7 H (9.0-12.0) sec INR 1.3 H (<1.2) APTT 29.9 (22.0-30.0) sec Sodium 137 (137-145) mmol/L Potassium 4.6 (3.5-5.1) mmol/L Chloride 105 (98-107) mmol/L Carbon Dioxide 21 L (22-30) mmol/L Anion Gap 11 mmol/L BUN 18 H (7-17) mg/dL Creatinine 0.91 (0.52-1.04) mg/dL Est GFR (CKD-EPI)AfAm 72 (>60 ml/min/1.73 sqM) Est GFR (CKD-EPI)NonAf 62 (>60 ml/min/1.73 sqM) Glucose 183 H (74-99) mg/dL Plasma Lactic Acid Praful (0.7-2.0) mmol/L Calcium 9.8 (8.4-10.2) mg/dL Magnesium 1.9 (1.6-2.3) mg/dL Total Bilirubin 0.4 (0.2-1.3) mg/dL AST 19 (14-36) U/L ALT 8 (4-34) U/L Alkaline Phosphatase 51 (38-126) U/L Troponin I (0.000-0.034) ng/mL NT-Pro-B Natriuret Pep pg/mL Total Protein 7.2 (6.3-8.2) g/dL Albumin 4.0 (3.5-5.0) g/dL 02/10/21 02/10/21 02/10/21 Range/Units 06:07 06:07 06:07 WBC (3.8-10.6) k/uL RBC (3.80-5.40) m/uL Hgb (11.4-16.0) gm/dL Hct (34.0-46.0) % MCV (80.0-100.0) fL MCH (25.0-35.0) pg MCHC (31.0-37.0) g/dL RDW (11.5-15.5) % Plt Count (150-450) k/uL MPV Neutrophils % % Lymphocytes % % Monocytes % % Eosinophils % % Basophils % % Neutrophils # (1.3-7.7) k/uL Lymphocytes # (1.0-4.8) k/uL Monocytes # (0-1.0) k/uL Eosinophils # (0-0.7) k/uL Basophils # (0-0.2) k/uL PT (9.0-12.0) sec INR (<1.2) APTT (22.0-30.0) sec Sodium (137-145) mmol/L Potassium (3.5-5.1) mmol/L Chloride (98-107) mmol/L Carbon Dioxide (22-30) mmol/L Anion Gap mmol/L BUN (7-17) mg/dL Creatinine (0.52-1.04) mg/dL Est GFR (CKD-EPI)AfAm (>60 ml/min/1.73 sqM) Est GFR (CKD-EPI)NonAf (>60 ml/min/1.73 sqM) Glucose (74-99) mg/dL Plasma Lactic Acid Praful 1.6 (0.7-2.0) mmol/L Calcium (8.4-10.2) mg/dL Magnesium (1.6-2.3) mg/dL Total Bilirubin (0.2-1.3) mg/dL AST (14-36) U/L ALT (4-34) U/L Alkaline Phosphatase (38-126) U/L Troponin I <0.012 (0.000-0.034) ng/mL NT-Pro-B Natriuret Pep 4920 pg/mL Total Protein (6.3-8.2) g/dL Albumin (3.5-5.0) g/dL Critical Care Time Critical Care Time: Yes Total Critical Care Time: 35 Disposition Clinical Impression: Atrial fibrillation with RVR, Weak, Lung cancer Disposition: ADMITTED IP TO THIS HOSP Condition: Fair Referrals: Francisco Ramirez DO [Primary Care Provider] - 1-2 days
[2021-02-10 07:13] LABS: INR 1.3 (<1.2); Partial Thromboplastin Time 29.9 sec (22.0-30.0); Prothrombin Time 13.7 sec (9.0-12.0)
--- NOTE | 2021-02-10 07:32 | XR ---
EXAMINATION TYPE: XR chest 2V DATE OF EXAM: 02/10/2021 COMPARISON: Chest CT January 16, 2021 and older studies. HISTORY: History of lung cancer with shortness of breath. TECHNIQUE: Frontal and lateral views of the chest are obtained. FINDINGS: Background chronic emphysematous change with right hilar and more prominent left hilar opa cities redemonstrated. The cardiac silhouette size is stable and upper limits of normal with atherosc lerotic aorta. The osseous structures are intact. IMPRESSION: Chronic changes as detailed above. Continued increased left hilar prominence difficult t o exclude neoplastic progression.
[2021-02-10] MEDS ORDERED: NITROGLYCERIN SL TABS 0.4 MG TAB SUBLINGUAL PRN (07:43)
--- NOTE | 2021-02-10 11:18 | CONS ---
CONSULTATION Mrs Moses is a 75-year-old female known history of paroxysmal fibrillation, history of lung cancer, stable, followed by Dr. Gil who has been followed by Dr. Dee in the past. Underwent a [place] guided cardioversion in June of this year. She woke up, not feeling well with some dizziness and dyspnea. She checked her heart rate and it was fast and irregular and came into the emergency room, was noted to be in atrial fibrillation with rapid ventricular response. She is feeling better at this time. She denies any chest pain. She denies any knowledge of the palpitation. No peripheral edema. No clear PND, orthopnea. During the [place] guided cardioversion that was performed in June of this year, she was found to have an ejection fraction of 40% with global hypokinesis. According to the patient, she has been in sinus mechanism since that time. Her coronary risk factors are positive for hypertension, hyperlipidemia, she is nonsmoker and she is a diabetic. MEDICATION: Include Glucophage 5 mg daily, Zestril 5 mg daily, spironolactone 12.5 mg daily, simvastatin 20 mg daily, metoprolol tartrate 75 mg twice a day, Lasix 40 mg daily, fenofibrate 160 mg daily, and Eliquis 5 mg twice a day. REVIEW OF SYSTEMS: RESPIRATORY system: She had the recent dyspnea on exertion. She has history of chronic obstructive lung disease with some cough, has been followed by Dr. Gomez. She has history of lung cancer. GI system: No nausea, no vomiting. No GI bleeding. system: No dysuria or hematuria. NERVOUS SYSTEM: No history of stroke or seizure. PHYSICAL EXAMINATION: She is a 75-year-old female, alert, oriented, in no apparent distress. Blood pressure 118/50 with a heart rate in the one teens. HEAD: Normocephalic. Eyes sclerae anicteric. NECK: Good carotid upstroke. No bruit. LUNGS with mild decrease in breath sounds. No wheezes. HEART irregularly irregular S1, S2. No S3. No rub. ABDOMEN: Soft, nontender. Positive bowel sounds. No megaly. EXTREMITIES: No edema. Intact distal pulses. LAB DATA: Lab data revealed troponin less than 0.012. NT proBNP of 4920. BUN and creatinine 18 and 0.91. Hemoglobin of 13.2. EKG revealed atrial fibrillation with a rate of 123, nonspecific ST-T wave changes. IMPRESSION: 1. Recurrent atrial fibrillation status post cardioversion June 2020, probably first occurrence according to the patient. 2. History of mild cardiomyopathy. 3. Probable congestive heart failure with mildly impaired left ventricular systolic function worsened by the atrial fibrillation. 4. History of lung cancer, stable. 5. History of chronic obstructive pulmonary disease, followed by Dr. Gomez. 6. History of diabetes. 7. Hypertension. 8. Hyperlipidemia. RECOMMENDATION: I will re-initiate treatment with the metoprolol tartrate as well as the Eliquis and I will obtain a repeat echocardiogram. I will add to her regimen amiodarone. I will follow her symptoms and her ventricular response and depending on that, recommendation will be made regarding the need to undergo repeat cardioversion or maximize medical therapy. Those findings and recommendations were discussed with the patient. She is in full understanding and agreement. Thank you for this consult. We will follow with you. OBDULIA / NAJMAN: [id number] /
[2021-02-10 11:24] LABS: Glucose,Whole Blood 153 mg/dL (75-99)
[2021-02-10] MEDS: SPIRONOLACTONE 25 MG TAB PO SCH (11:47)
[2021-02-10] MEDS: APIXABAN 5 MG TAB PO SCH ×2 (11:47→20:21)
[2021-02-10] MEDS: METOPROLOL TARTRATE 50 MG TAB PO SCH ×3 (11:47→20:22)
[2021-02-10] MEDS: AMIODARONE 200 MG TAB PO SCH ×2 (11:47→20:21)
[2021-02-10] MEDS: FUROSEMIDE 10 MG/ML 2 ML VIAL IV SCH ×2 (11:48→20:21)
--- NOTE | 2021-02-10 16:02 | P.HPIM ---
History of Present Illness H&P Date: 02/10/21 Chief Complaint: Shortness of breath Patient is a 75-year-old female with a known history of atrial fibrillation, hypertension, diabetes type 2, previous history of smoking presents to ER with complaints of shortness of breath. Patient is also complaining of dizziness and lightheadedness. Denied any chest pain or palpitations. Patient was found to have atrial fibrillation with rapid Rate. Does have history of atrial fibrillation on anticoagulation with Eliquis. Patient denied any leg swelling. No nausea vomiting or abdominal pain. No fever no chills. Denied any recent illnesses. No headache. Chest x-ray showed chronic changes. Continued increased left hilar prominence difficult to exclude neoplastic progression. EKG showed atrial fibrillation with rapid Response Laboratory data showed sodium 137 potassium 4.6, BUN 18 and creatinine 0.91 and blood sugar is 183 magnesium 1.9 Troponin 3 negative ProBNP 4920 Review of Systems Constitutional: Patient denies any fever or chills . No generalized weakness or weight loss. Abdomen: Patient denied nausea vomiting and diarrhea and abdominal pain. Cardiovascular: Patient denies any chest pain. Patient does have short of breath no palpitations. Dizziness and lightheaded. Respiratory: patient denied any cough is from production. No shortness of breath Neurologic: Patient denied any numbness or tingling headache. Musculoskeletal: Patient denies any complaints of joint swelling or deformity. Skin: Negative Psychiatric: Negative Endocrine: No heat or cold intolerance. No recent weight gain. Genitourinary: No dysuria or hematuria. All other 14 point ROS negative except the above Past Medical History Past Medical History: Atrial Fibrillation, Cancer, Diabetes Mellitus, Hypertension Additional Past Medical History / Comment(s): mass left lung Jul 2019, cough, occasional phlegm. History of Any Multi-Drug Resistant Organisms: None Reported Past Surgical History: Back Surgery, Cholecystectomy, Hysterectomy Additional Past Surgical History / Comment(s): Exploratory surgery, plan for lung biopsy Jul 19 2019 Past Anesthesia/Blood Transfusion Reactions: No Reported Reaction Past Psychological History: No Psychological Hx Reported Smoking Status: Former smoker Past Alcohol Use History: Occasional Additional Past Alcohol Use History / Comment(s): STARTED SMOKING AGE 21. Patient states she quit smoking jul 2019 Past Drug Use History: None Reported - Past Family History Mother Family Medical History: Cancer Additional Family Medical History / Comment(s): BRAIN CANCER. Sister(s) Family Medical History: Cancer Additional Family Medical History / Comment(s): BREAST AND PANCREATIC CANCER. Medications and Allergies Home Medications Medication Instructions Recorded Confirmed Type Fenofibrate 160 mg PO DAILY 06/30/19 02/10/21 History metFORMIN HCL [Glucophage] 500 mg PO PC-SUPPER 06/30/19 02/10/21 History Simvastatin [Zocor] 20 mg PO HS 07/13/19 02/10/21 History Apixaban [Eliquis] 5 mg PO BID 30 Days #60 tab 05/29/20 02/10/21 Rx Furosemide [Lasix] 40 mg PO DAILY 09/21/20 02/10/21 History Metoprolol Tartrate [Lopressor] 75 mg PO BID-W/MEALS 09/21/20 02/10/21 History Spironolactone 12.5 mg PO DAILY 09/21/20 02/10/21 History lisinopriL [Zestril] 5 mg PO HS 09/21/20 02/10/21 History Metoprolol Tartrate [Lopressor] 12.5 mg PO W/LUNCH 02/10/21 02/10/21 History Allergies Allergy/AdvReac Type Severity Reaction Status Date / Time morphine AdvReac Severe Nausea & Verified 02/10/21 08:07 Vomiting cefuroxime [From Ceftin] AdvReac Unknown Nausea Verified 02/10/21 08:07 Sulfa (Sulfonamide AdvReac Unknown Nausea, Verified 02/10/21 08:07 Antibiotics) lightheaded Physical Exam Vitals: Vital Signs Temp Pulse Resp BP BP Pulse Ox 02/10/21 09:30 17 107/67 95 02/10/21 09:14 115 H 18 118/54 97 02/10/21 08:10 115 H 16 102/65 97 02/10/21 07:36 108 H 16 92/58 97 02/10/21 06:00 124 H 24 105/61 96 02/10/21 05:39 97.9 F 60 24 110/63 96 Intake and Output 02/09/21 02/10/21 02/10/21 22:59 06:59 14:59 Other: Weight 85.729 kg 85.729 kg PHYSICAL EXAMINATION: Patient is lying in the bed comfortably, no acute distress, awake alert and oriented.. HEENT: Normocephalic. Neck is supple. Pupils reactive. Nostrils clear. Oral cavity is moist. Neck reveals no JVD, carotid bruits, or thyromegaly. CHEST EXAMINATION: Trachea is central. Symmetrical expansion. Minimal right basilar crackles. No wheezing.. CARDIAC: Normal S1, S2 with no gallops. No murmurs . Irregularly irregular pulse. ABDOMEN: Soft. Bowel sounds normal. No organomegaly. No abdominal bruits. Extremities: reveal no edema. No clubbing or cyanosis Neurologically awake, alert, oriented x3 with well-coordinated movements. No focal deficits noted Skin: No rash or skin lesions. Psychiatric: Coperative. Nonsuicidal Musculoskeletal: No joint swelling or deformity. Normal range of motion. Results CBC & Chem 7: 02/10/21 06:07 02/10/21 06:07 Labs: Abnormal Lab Results - Last 24 Hours (Table) 02/10/21 02/10/21 02/10/21 Range/Units 06:07 06:07 06:07 Lymphocytes # 0.8 L (1.0-4.8) k/uL PT 13.7 H (9.0-12.0) sec INR 1.3 H (<1.2) Carbon Dioxide 21 L (22-30) mmol/L BUN 18 H (7-17) mg/dL Glucose 183 H (74-99) mg/dL Thrombosis Risk Factor Assmnt - DVT/VTE Prophylaxis DVT/VTE Prophylaxis: Pharmacologic Prophylaxis ordered - Choose All That Apply Each Risk Factor Represents 2 Points: Age 61-74 years Other congenital or acquired thrombophilia - If yes, enter type in comment: No Thrombosis Risk Factor Assessment Total Risk Factor Score: 2 Thrombosis Risk Factor Assessment Level: Low Risk Assessment and Plan Assessment: Atrial fibrillation with rapid ventricular rate Paroxysmal Atrial fibrillation on anticoagulation with Eliquis. History of cardioversion in June 2020 Acute on chronic CHF with mildly reduced systolic function. Worsened due to atrial fibrillation. History of lung mass COPD Previous history of smoking Diabetes type 2 non-insulin dependent Hypertension hyperlipidemia Plan: Patient was continued on Cardizem drip and is being tapered off. Patient will be started back on metoprolol with increase the dose. On anticoagulation with Eliquis. Amiodarone was added as per cardiology recommendations. Continue with Lasix IV 20 mg every 12 and follow up closely. Continue the telemetry monitoring. Replace electrolytes and monitor renal function. Continue with insulin sliding scale.. Time with Patient: Greater than 30
[2021-02-10 16:44] LABS: Glucose,Whole Blood 173 mg/dL (75-99)
--- NOTE | 2021-02-10 16:44 | ECHOF ---
Referral Reason:afib MEASUREMENTS -------- HEIGHT: 165.1 cm WEIGHT: 85.7 kg BP: 142/63 RVIDd: 3.3 cm (< 3.3) IVSd: 1.1 cm (0.6 - 1.1) LVIDd: 4.9 cm (3.9 - 5.3) LVPWd: 1.2 cm (0.6 - 1.1) IVSs: 1.4 cm LVIDs: 3.9 cm LVPWs: 1.3 cm LAESV Index (A-L): 29.55 ml/m Ao Diam: 2.8 cm (2.0 - 3.7) AV Cusp: 2.1 cm (1.5 - 2.6) MV EXCURSION: 13.784 mm (> 18.000) MV EF SLOPE: 46 mm/s (70 - 150) EPSS: 0.6 cm RAP: 5.00 mmHg RVSP: 26.09 mmHg FINDINGS -------- Atrial fibrillation. This was a technically adequate study. The left ventricular size is normal. There is mild concentric left ventricular hypertrophy. Overa ll left ventricular systolic function is low-normal with, an EF between 50 - 55 %. The right ventricle is mildly enlarged. LA is midly dilated 29-33ml/m2. The right atrium is mildly enlarged. Interatrial and interventricular septum intact. The aortic valve is trileaflet, and appears structurally normal. No aortic stenosis or regurgitation. The mitral valve is normal. Mild mitral regurgitation is present. The tricuspid valve appears structurally normal. Mild tricuspid regurgitation present. Right vent ricular systolic pressure is normal at < 35 mmHg. The right ventricular systolic pressure, as measu red by Doppler, is 26.09mmHg. There is no pulmonic regurgitation present. The aortic root size is normal. IVC Not well visulized. Echo free space may represent effusion or a pericardial fat pad. There is no pericardial effusion. CONCLUSIONS -------- 1. Atrial fibrillation. 2. There is mild concentric left ventricular hypertrophy. 3. Overall left ventricular systolic function is low-normal with, an EF between 50 - 55 %. 4. The right ventricle is mildly enlarged. 5. LA is midly dilated 29-33ml/m2. 6. The right atrium is mildly enlarged. 7. The aortic valve is trileaflet, and appears structurally normal. No aortic stenosis or regurgitati on. 8. Mild mitral regurgitation is present. 9. Mild tricuspid regurgitation present. DATA CENTER TECHNICIAN: Nayeli Cao RDCS
[2021-02-10] MEDS: metFORMIN 500 MG TAB PO SCH (18:06)
[2021-02-10 20:01] LABS: Glucose,Whole Blood 166 mg/dL (75-99)
[2021-02-10] MEDS: lisinopriL 5 MG TAB PO SCH (20:21)
[2021-02-10] MEDS: ATORVASTATIN 10 MG TAB PO SCH (20:21)
[2021-02-11 06:03] LABS: Glucose,Whole Blood 162 mg/dL (75-99)
[2021-02-11] MEDS: AMIODARONE 200 MG TAB PO SCH ×2 (07:52→20:06)
[2021-02-11] MEDS: SPIRONOLACTONE 25 MG TAB PO SCH (07:53)
[2021-02-11] MEDS: APIXABAN 5 MG TAB PO SCH ×2 (07:53→20:06)
[2021-02-11] MEDS: METOPROLOL TARTRATE 50 MG TAB PO SCH ×3 (07:53→22:06)
[2021-02-11] MEDS: FUROSEMIDE 10 MG/ML 2 ML VIAL IV SCH (07:53)
[2021-02-11 08:28] LABS: Calcium 9.7 mg/dL (8.4-10.2); Potassium 4.6 mmol/L (3.5-5.1)
[2021-02-11] MEDS ORDERED: FENOFIBRATE 160 MG TAB PO SCH (09:00)
--- NOTE | 2021-02-11 10:44 | PN ---
PROGRESS NOTE Mrs. Moses is a 75-year-old female who presented with symptoms of palpitations and was noted to be in atrial fibrillation. She has a known history of atrial fibrillation, has been followed by Dr. Dee, and underwent cardioversion in June of this year. She also has a history of lung cancer that has been stable. Her rate is under better control today. She is feeling well at this time. She is denying any chest pain. She denies any dizziness. She denies any nausea. She has minimal palpitations, but not significant. She had an echocardiogram performed yesterday that revealed an ejection fraction of 50% to 55% with mild mitral and tricuspid regurgitation. MEDICATION: Her medications at this time include amiodarone 400 mg twice a day, Eliquis 5 mg twice a day, atorvastatin 10 mg daily, furosemide 20 mg IV q.12 hours, lisinopril 5 mg daily, metformin, metoprolol 50 mg 3 times a day, in addition to spironolactone 25 mg daily. PHYSICAL EXAMINATION: Blood pressure is 114/60 with a heart rate in the 90s. LUNGS: Clear. HEART: Irregularly irregular. S1, S2. No S3, with a systolic murmur at the base. No diastolic murmur. ABDOMEN: Soft, nontender. EXTREMITIES: No edema. LAB DATA: Lab data revealed a BUN and creatinine of 25 and 0.99, potassium 4.6. IMPRESSION: 1. Recurrent atrial fibrillation. Rate is under control, anticoagulated. 2. History of hypertension. 3. Hyperlipidemia. 4. Diabetes mellitus. RECOMMENDATIONS: I will switch her to oral diuretics. Will continue present therapy, increase her level of activity. If she remains stable, she may be able to be discharged home tomorrow and, depending on her progress, make a decision to bring her back to the hospital to undergo elective cardioversion. MMODL / IJN: [id number] /
[2021-02-11 11:41] LABS: Glucose,Whole Blood 130 mg/dL (75-99)
[2021-02-11 13:12] LABS: Chol/HDL Ratio 6.91
[2021-02-11 16:36] LABS: Glucose,Whole Blood 124 mg/dL (75-99)
[2021-02-11] MEDS: metFORMIN 500 MG TAB PO SCH (17:45)
[2021-02-11] MEDS: FUROSEMIDE 20 MG TAB PO SCH (20:06)
[2021-02-11] MEDS: lisinopriL 5 MG TAB PO SCH (20:06)
[2021-02-11] MEDS: ATORVASTATIN 10 MG TAB PO SCH (20:07)
[2021-02-11 20:35] LABS: Glucose,Whole Blood 185 mg/dL (75-99)
--- NOTE | 2021-02-11 23:26 | P.PN ---
Subjective Progress Note Date: 02/11/21 Principal diagnosis: Atrial fibrillation with rapid ventricular rate Paroxysmal Atrial fibrillation on anticoagulation with Eliquis. History of cardioversion in June 2020 Acute on chronic CHF with mildly reduced systolic function. Worsened due to atrial fibrillation. Patient is a 75-year-old female with a known history of atrial fibrillation, hypertension, diabetes type 2, previous history of smoking presents to ER with complaints of shortness of breath. Patient is also complaining of dizziness and lightheadedness. Denied any chest pain or palpitations. Patient was found to have atrial fibrillation with rapid Rate. Does have history of atrial fibrillation on anticoagulation with Eliquis. Patient denied any leg swelling. No nausea vomiting or abdominal pain. No fever no chills. Denied any recent illnesses. No headache. Chest x-ray showed chronic changes. Continued increased left hilar prominence difficult to exclude neoplastic progression. EKG showed atrial fibrillation with rapid Response Laboratory data showed sodium 137 potassium 4.6, BUN 18 and creatinine 0.91 and blood sugar is 183 magnesium 1.9 Troponin 3 negative ProBNP 4920 02/11/2021 Patient is very telemetry unit. Currently lying in the bed comfortably. Awake alert oriented x3. Denied any complaints of palpitations. Heart rate is around 110. Patient is being continued on metoprolol 50 mg 3 times daily. And Lasix changed to by mouth. No complaints of shortness of breath today. No nausea vomiting abdominal pain or diarrhea. Laboratory data showed sodium 137 potassium 4.6 BUN 25 creatinine 0.99 and blood sugar is 238 this morning. LDL 80. Anticipate discharge in the next 24 hours. Current medications reviewed. Objective - Vital Signs Vital signs: Vital Signs Temp 97.6 F 02/11/21 20:04 Pulse 116 H 02/11/21 20:04 Resp 18 02/11/21 20:04 BP 108/64 02/11/21 20:04 Pulse Ox 97 02/11/21 20:04 Intake & Output 02/11/21 02/11/21 02/12/21 06:59 18:59 06:59 Intake Total 600 Balance 600 Weight 86 kg Intake: Oral 600 Other: Voiding Method Toilet Toilet # Voids 1 - Exam PHYSICAL EXAMINATION: Patient is lying in the bed comfortably, no acute distress, awake alert and oriented.. HEENT: Normocephalic. Neck is supple. Pupils reactive. Nostrils clear. Oral cavity is moist. Neck reveals no JVD, carotid bruits, or thyromegaly. CHEST EXAMINATION: Trachea is central. Symmetrical expansion. no crackles. No wheezing.. CARDIAC: Normal S1, S2 with no gallops. No murmurs . Irregularly irregular pulse. ABDOMEN: Soft. Bowel sounds normal. No organomegaly. No abdominal bruits. Extremities: reveal no edema. No clubbing or cyanosis Neurologically awake, alert, oriented x3 with well-coordinated movements. No focal deficits noted Skin: No rash or skin lesions. Psychiatric: Coperative. Nonsuicidal Musculoskeletal: No joint swelling or deformity. Normal range of motion. - Labs CBC & Chem 7: 02/10/21 06:07 02/11/21 07:58 Labs: Abnormal Lab Results - Last 24 Hours (Table) 02/11/21 02/11/21 02/11/21 Range/Units 06:02 07:58 07:58 Carbon Dioxide 21 L (22-30) mmol/L BUN 25 H (7-17) mg/dL Glucose 238 H (74-99) mg/dL POC Glucose (mg/dL) 162 H (75-99) mg/dL Triglycerides 250.0 H (0.0-149.0) mg/dL VLDL Cholesterol, Calc 50.00 H (5.00-40.00) mg/dL HDL Cholesterol 22.0 L (40.0-60.0) mg/dL 02/11/21 02/11/21 02/11/21 Range/Units 11:39 16:34 20:34 Carbon Dioxide (22-30) mmol/L BUN (7-17) mg/dL Glucose (74-99) mg/dL POC Glucose (mg/dL) 130 H 124 H 185 H (75-99) mg/dL Triglycerides (0.0-149.0) mg/dL VLDL Cholesterol, Calc (5.00-40.00) mg/dL HDL Cholesterol (40.0-60.0) mg/dL Assessment and Plan Assessment: Atrial fibrillation with rapid ventricular rate Paroxysmal Atrial fibrillation on anticoagulation with Eliquis. History of cardioversion in June 2020 Acute on chronic CHF with mildly reduced systolic function. Worsened due to atrial fibrillation. History of lung mass COPD Previous history of smoking Diabetes type 2 non-insulin dependent Hypertension hyperlipidemia Plan: Patient was continued on Cardizem drip and is being tapered off. Patient will be started back on metoprolol with increase the dose. On anticoagulation with Eliquis. Amiodarone was added as per cardiology recommendations. Continued with Lasix IV 20 mg every 12H, Chaged to PO. Continue the telemetry monitoring. Replace electrolytes and monitor renal function. Continue with insulin sliding scale..Cardiology is on board. Time with Patient: Greater than 30
[2021-02-12 00:20] VITALS: RESP 16
[2021-02-12 06:09] LABS: Glucose,Whole Blood 137 mg/dL (75-99)
[2021-02-12] MEDS: METOPROLOL TARTRATE 50 MG TAB PO SCH (07:43)
[2021-02-12] MEDS: APIXABAN 5 MG TAB PO SCH ×2 (07:43→20:08)
[2021-02-12] MEDS: AMIODARONE 200 MG TAB PO SCH ×2 (07:43→20:08)
[2021-02-12] MEDS: FUROSEMIDE 20 MG TAB PO SCH ×2 (07:43→20:08)
[2021-02-12] MEDS: SPIRONOLACTONE 25 MG TAB PO SCH (07:44)
[2021-02-12 08:17] LABS: Basophils # (A) 0.1 k/uL (0-0.2); Basophils % (A) 1 %; Eosinophils # (A) 0.4 k/uL (0-0.7); Eosinophils % (A) 4 %; HCT 38.6 % (34.0-46.0); HGB 12.8 gm/dL (11.4-16.0); Lymphocytes % (A) 11 %; MCH 27.3 pg (25.0-35.0); MCHC 33.1 g/dL (31.0-37.0); MCV 82.5 fL (80.0-100.0); Mean Platelet Volume 8.1; Monocytes # (A) 0.6 k/uL (0-1.0); Monocytes % (A) 7 %; Neutrophils # (A) 6.8 k/uL (1.3-7.7); Neutrophils % (A) 74 %; Platelet Count 377 k/uL (150-450); RBC 4.67 m/uL (3.80-5.40); RDW 14.5 % (11.5-15.5); WBC 9.3 k/uL (3.8-10.6)
[2021-02-12] MEDS ORDERED: METOPROLOL TARTRATE 25 MG TAB PO STA (08:48)
[2021-02-12 08:52] LABS: Calcium 9.5 mg/dL (8.4-10.2); Potassium 4.8 mmol/L (3.5-5.1)
[2021-02-12] MEDS: METOPROLOL TARTRATE 25 MG TAB PO SCH ×2 (11:52→20:07)
[2021-02-12 11:53] LABS: Glucose,Whole Blood 188 mg/dL (75-99)
--- NOTE | 2021-02-12 13:47 | P.PN ---
Subjective This is a pleasant 75-year-old female past medical history significant for paroxysmal atrial fibrillation status post cardioversion in June 2020, hypertension, lung cancer, dyslipidemia and diabetes mellitus. She follows in the office with Dr. Dee. She is seen and examined sitting up in the recliner in no acute distress. At rest she has no symptoms of palpitations or dizziness however she states if she gets up to do any activity she does feel her heart start to race and she becomes dizzy. Telemetry tracings reveal she continues to be in atrial fibrillation with variable ventricular rates. Currently 116 bpm. Blood pressure 117/61. Currently maintained on metoprolol 75 mg twice a day, Eliquis 5 mg twice a day, atorvastatin 10 mg daily, Lasix 20 mg twice a day, lisinopril 5 mg at bedtime, Aldactone 25 mg daily and amiodarone 400 mg twice a day. GENERAL: Well-appearing, well-nourished and in no acute distress. NECK: Supple without JVD or thyromegaly. LUNGS: Breath sounds clear to auscultation bilaterally. Respiration equal and unlabored. No wheezes, rales or rhonchi. HEART: Irregular rate and rhythm with systolic ejection murmur at the base, no rubs or gallops. S1 and S2 heard. EXTREMITIES: Normal range of motion, no edema. No clubbing or cyanosis. Peripheral pulses intact. ASSESSMENT Paroxysmal atrial fibrillation with variable ventricular rates status post cardioversion Hypertension Dyslipidemia Diabetes mellitus PLAN Increase her beta blockers to 75 mg twice a day with an additional dose of 25 mg at noontime. Increase her activity and telemetry monitoring. Recommend ongoing monitoring overnight as she is still having rapid heart rates and is symptomatic. Nurse Practitioner note has been reviewed, I agree with a documented findings and plan of care. Patient was seen and examined. Objective - Vital Signs Vital signs: Vital Signs Temp 97.6 F 02/12/21 07:36 Pulse 111 H 02/12/21 07:36 Resp 16 02/12/21 07:36 BP 117/61 02/12/21 07:36 Pulse Ox 96 02/12/21 07:36 Intake & Output 02/11/21 02/12/21 02/12/21 18:59 06:59 18:59 Intake Total 600 236 Balance 600 236 Weight 86.3 kg Intake: Oral 600 236 Other: Voiding Method Toilet Toilet Toilet # Voids 1 3 - Labs CBC & Chem 7: 02/12/21 06:53 02/12/21 06:53 Labs: Abnormal Lab Results - Last 24 Hours (Table) 02/11/21 02/11/21 02/11/21 Range/Units 07:58 11:39 16:34 Sodium (137-145) mmol/L Carbon Dioxide (22-30) mmol/L BUN (7-17) mg/dL Glucose (74-99) mg/dL POC Glucose (mg/dL) 130 H 124 H (75-99) mg/dL Triglycerides 250.0 H (0.0-149.0) mg/dL VLDL Cholesterol, Calc 50.00 H (5.00-40.00) mg/dL HDL Cholesterol 22.0 L (40.0-60.0) mg/dL 02/11/21 02/12/21 02/12/21 Range/Units 20:34 06:08 06:53 Sodium 135 L (137-145) mmol/L Carbon Dioxide 19 L (22-30) mmol/L BUN 27 H (7-17) mg/dL Glucose 136 H (74-99) mg/dL POC Glucose (mg/dL) 185 H 137 H (75-99) mg/dL Triglycerides (0.0-149.0) mg/dL VLDL Cholesterol, Calc (5.00-40.00) mg/dL HDL Cholesterol (40.0-60.0) mg/dL
--- NOTE | 2021-02-12 15:18 | P.PN ---
Subjective Progress Note Date: 02/12/21 This is a 75-year-old female admitted with paroxysmal atrial fibrillation, history of cardioversion in June 2020, hypertension, diabetes mellitus. Telemetry reporting atrial fibrillation with fluctuating heart rates, currently in the mid 90s at rest. Denies chest pain, palpitations or increased shortness of breath. Denies lightheadedness, dizziness or focal deficits at rest-reports symptomatic palpitations with exertion-dizziness. Evaluated by cardiology, medication adjustments continue; beta jalen increased, subsequent blood pressure borderline hypotension. Maintaining O2 sats in the 90s on room air. Objective - Vital Signs Vital signs: Vital Signs Temp 97 F L 02/12/21 11:07 Pulse 97 02/12/21 11:07 Resp 16 02/12/21 11:07 BP 105/64 02/12/21 11:49 Pulse Ox 94 L 02/12/21 11:07 Intake & Output 02/11/21 02/12/21 02/12/21 18:59 06:59 18:59 Intake Total 600 364 Balance 600 364 Weight 86.3 kg Intake: IV 10 0.9% NS FLUSH 10 Oral 600 354 Other: Voiding Method Toilet Toilet Toilet # Voids 1 3 - Exam PHYSICAL EXAM: VITAL SIGNS: As above GENERAL: Sitting up in bed, no acute distress HEENT: Conjunctivae normal. eyes normal. NECK: Supple, No JVD. CARDIOVASCULAR: S1, S2 regular.irregular, positive systolic murmur RESPIRATION: Breath sounds diminished in the bases. No rhonchi or crackles. No bronchial breathing. ABDOMEN: Soft, nontender . No guarding. no masses palpable. No ascites, No hepatosplenomegaly.Bowel sounds heard. LEGS: No edema. no swelling PSYCHIATRY: Alert and oriented X3, mood and affect normal. NERVOUS SYSTEM: Cranial N 2-12 grossly normal. Moves all 4 limbs. No focal deficits. Strength and sensation grossly intact.. Skin: Warm and dry, no rash - Labs CBC & Chem 7: 02/12/21 06:53 02/12/21 06:53 Labs: Abnormal Lab Results - Last 24 Hours (Table) 02/11/21 02/11/21 02/12/21 Range/Units 16:34 20:34 06:08 Sodium (137-145) mmol/L Carbon Dioxide (22-30) mmol/L BUN (7-17) mg/dL Glucose (74-99) mg/dL POC Glucose (mg/dL) 124 H 185 H 137 H (75-99) mg/dL 02/12/21 02/12/21 Range/Units 06:53 11:45 Sodium 135 L (137-145) mmol/L Carbon Dioxide 19 L (22-30) mmol/L BUN 27 H (7-17) mg/dL Glucose 136 H (74-99) mg/dL POC Glucose (mg/dL) 188 H (75-99) mg/dL Assessment and Plan Assessment: Paroxysmal atrial fibrillation with RVR with history of chronic paroxysmal atrial fibrillation, cardioversion 06/22 Acute on chronic CHF with mildly reduced systolic function, worsening secondary to the above Acute hypoxic respiratory failure secondary to the above Diabetes mellitus type 2 Moderate to severe mitral regurgitation Moderate tricuspid regurgitation Hypertension History of Lung CA Plan: Continue on current medication regime ,monitoring and systemic treatment. Maintain supportive care, overnight monitoring -patient having borderline hypotension with adjustment of medication regimen. Increase activity as tolerated.Discharge planning in progress for tomorrow morning, pending patient tolerates medication adjustments, clearance and final DC recommendations per cardiology. The impression and plan of care has been dictated as directed. : I performed a history and examination of this patient, discussed the same with the dictator. I agree with the dictator's note ,documented as a scribe. Any additional findings or plans will be noted.
[2021-02-12 16:46] LABS: Glucose,Whole Blood 160 mg/dL (75-99)
[2021-02-12] MEDS: metFORMIN 500 MG TAB PO SCH (16:58)
[2021-02-12 19:45] LABS: Glucose,Whole Blood 160 mg/dL (75-99)
[2021-02-12] MEDS: ATORVASTATIN 10 MG TAB PO SCH (20:07)
[2021-02-12] MEDS: lisinopriL 5 MG TAB PO SCH (20:07)
[2021-02-13 06:02] LABS: Glucose,Whole Blood 154 mg/dL (75-99)
[2021-02-13 07:34] LABS: Basophils % (A) 1 %; Eosinophils # (A) 0.4 k/uL (0-0.7); Eosinophils % (A) 4 %; HCT 37.5 % (34.0-46.0); HGB 12.3 gm/dL (11.4-16.0); Lymphocytes % (A) 11 %; MCHC 32.7 g/dL (31.0-37.0); MCV 82.5 fL (80.0-100.0); Mean Platelet Volume 7.7; Monocytes # (A) 0.6 k/uL (0-1.0); Monocytes % (A) 7 %; Neutrophils # (A) 6.6 k/uL (1.3-7.7); Neutrophils % (A) 75 %; Platelet Count 357 k/uL (150-450); RBC 4.54 m/uL (3.80-5.40); RDW 14.1 % (11.5-15.5); WBC 8.8 k/uL (3.8-10.6)
[2021-02-13 08:11] LABS: Calcium 9.4 mg/dL (8.4-10.2); Potassium 4.5 mmol/L (3.5-5.1)
[2021-02-13] MEDS: AMIODARONE 200 MG TAB PO SCH (08:54)
[2021-02-13] MEDS: SPIRONOLACTONE 25 MG TAB PO SCH (08:54)
[2021-02-13] MEDS: FUROSEMIDE 20 MG TAB PO SCH (08:54)
[2021-02-13] MEDS: METOPROLOL TARTRATE 25 MG TAB PO SCH ×2 (08:54→11:18)
[2021-02-13] MEDS: APIXABAN 5 MG TAB PO SCH (08:54)
[2021-02-13 08:57] VITALS: BP 109/59; PULSE 113; TEMP 98.1
--- NOTE | 2021-02-13 09:38 | P.DS ---
Providers Date of admission: 02/10/21 07:43 Expected date of discharge: 02/14/21 Attending physician: Francisco Ramirez Consults: 02/10/21 07:43 Consult Physician Urgent Consulting Provider: Elias Dee Consult Reason/Comments: afib rvr Do you want consulting provider notified?: Yes Primary care physician: Francisco Ramirez [facility] Hospital Course: Final Diagnoses: Paroxysmal atrial fibrillation with RVR with history of chronic paroxysmal atrial fibrillation, cardioversion 06/22 Acute on chronic CHF with mildly reduced systolic function, worsening secondary to the above Mild acute renal failure secondary to diuresing Acute hypoxic respiratory failure secondary to the above Diabetes mellitus type 2 Moderate to severe mitral regurgitation Moderate tricuspid regurgitation Hypertension History of Lung CA Hospital course:This is a 75-year-old female admitted with paroxysmal atrial fibrillation, history of cardioversion in June 2020, hypertension, diabetes mellitus. Telemetry reporting atrial fibrillation with fluctuating heart rates, currently in the mid 90s at rest. Denies chest pain, palpitations or increased shortness of breath. Denies lightheadedness, dizziness or focal deficits at rest-reports symptomatic palpitations with exertion-dizziness. Evaluated by cardiology, medication adjustments continue; beta jalen increased, subsequent blood pressure borderline hypotension. Maintaining O2 sats in the 90s on room air. RAFAL inhibitor discontinued, secondary to borderline hypotension, mild renal insufficiency. Renal function improving-near baseline. VSS. Telemetry atrial fibrillation with heart rate up to 120s, currently controlled in the 90s. Denies chest pain, palpitations or shortness of breath. Denies lightheadedness or focal deficits. Significant clinical improvement. Patient will be discharged home today pending final DC recommendations and clearance as per cardiology. The impression and plan of care has been dictated as directed. : I performed a history and examination of this patient, discussed the same with the dictator. I agree with the dictator's note ,documented as a scribe. Any additional findings or plans will be noted. Patient Condition at Discharge: Stable Plan - Discharge Summary Discharge Rx Participant: No New Discharge Prescriptions: New Amiodarone [Cordarone] 200 mg PO BID #180 tab Continue Fenofibrate 160 mg PO DAILY metFORMIN HCL [Glucophage] 500 mg PO PC-SUPPER Simvastatin [Zocor] 20 mg PO HS Apixaban [Eliquis] 5 mg PO BID 30 Days #60 tab Metoprolol Tartrate [Lopressor] 75 mg PO BID-W/MEALS Changed Furosemide [Lasix] 20 mg PO BID #0 Metoprolol Tartrate [Lopressor] 25 mg PO W/LUNCH #0 Spironolactone 25 mg PO DAILY #0 Discontinued lisinopriL [Zestril] 5 mg PO HS Discharge Medication List Fenofibrate 160 mg PO DAILY 06/30/19 [History] metFORMIN HCL [Glucophage] 500 mg PO PC-SUPPER 06/30/19 [History] Simvastatin [Zocor] 20 mg PO HS 07/13/19 [History] Apixaban [Eliquis] 5 mg PO BID 30 Days #60 tab 05/29/20 [Rx] Metoprolol Tartrate [Lopressor] 75 mg PO BID-W/MEALS 09/21/20 [History] Furosemide [Lasix] 20 mg PO BID #0 02/12/21 [Rx] Metoprolol Tartrate [Lopressor] 25 mg PO W/LUNCH #0 02/12/21 [Rx] Spironolactone 25 mg PO DAILY #0 02/12/21 [Rx] Amiodarone [Cordarone] 200 mg PO BID #180 tab 02/13/21 [Rx] Follow up Appointment(s)/Referral(s): Elias Dee MD [STAFF PHYSICIAN] - 1 Week (home on 02/22) Francisco Ramirez DO [Primary Care Provider] - 3 Days Ambulatory/Diagnostic Orders: Complete Blood Count w/diff [LAB.AMB] Time Frame: 3 Days, Location: None Selected Activity/Diet/Wound Care/Special Instructions: Pending final DC recommendations and clearance including amiodarone taper as per cardiology. Confirm cardiology follow-up appointment prior to discharge.
--- NOTE | 2021-02-13 12:24 | P.PN ---
Subjective This is a pleasant 75-year-old female past medical history significant for paroxysmal atrial fibrillation status post cardioversion in June 2020, hypertension, lung cancer, dyslipidemia and diabetes mellitus. She follows in the office with Dr. Dee. She is seen and examined sitting up in the recliner in no acute distress. At rest she has no symptoms of palpitations or dizziness however she states if she gets up to do any activity she does feel her heart start to race and she becomes dizzy. Telemetry tracings reveal she continues to be in atrial fibrillation with variable ventricular rates. Currently 116 bpm. Blood pressure 117/61. Currently maintained on metoprolol 75 mg twice a day, Eliquis 5 mg twice a day, atorvastatin 10 mg daily, Lasix 20 mg twice a day, lisinopril 5 mg at bedtime, Aldactone 25 mg daily and amiodarone 400 mg twice a day. 02/13/2021 Patient seen and examined sitting up in recliner chair in no acute distress. Her heart rates are better controlled. She has no significant dizziness with exertion. She states when she first gets up she does have discomfort in the edge of the bed for a couple of seconds before standing. Blood pressure 109/59 heart rate 97 afebrile maintaining oxygen saturation on room air. GENERAL: Well-appearing, well-nourished and in no acute distress. NECK: Supple without JVD or thyromegaly. LUNGS: Breath sounds clear to auscultation bilaterally. Respiration equal and unlabored. No wheezes, rales or rhonchi. HEART: Irregular rate and rhythm with systolic ejection murmur at the base, no rubs or gallops. S1 and S2 heard. EXTREMITIES: Normal range of motion, no edema. No clubbing or cyanosis. Peripheral pulses intact. ASSESSMENT Paroxysmal atrial fibrillation with variable ventricular rates status post cardioversion Hypertension Dyslipidemia Diabetes mellitus PLAN Discontinue lisinopril due to increased doses of lopressor. Stable for discharge. Amiodaroine taper discussed with the patient. Follow up with Dr. Dee. Nurse Practitioner note has been reviewed, I agree with a documented findings and plan of care. Patient was seen and examined. Objective - Vital Signs Vital signs: Vital Signs Temp 98.1 F 02/13/21 08:50 Pulse 113 H 02/13/21 08:50 Resp 16 02/13/21 08:50 BP 109/59 02/13/21 08:50 Pulse Ox 96 02/13/21 08:50 Intake & Output 02/12/21 02/13/21 02/13/21 18:59 06:59 18:59 Intake Total 482 240 Balance 482 240 Weight 86.1 kg Intake: IV 10 0.9% NS FLUSH 10 Oral 472 240 Other: Voiding Method Toilet Toilet Toilet # Voids 3 - Labs CBC & Chem 7: 02/13/21 06:56 02/13/21 06:56 Labs: Abnormal Lab Results - Last 24 Hours (Table) 02/12/21 02/12/21 02/13/21 Range/Units 16:37 19:39 06:01 Sodium (137-145) mmol/L Carbon Dioxide (22-30) mmol/L BUN (7-17) mg/dL Glucose (74-99) mg/dL POC Glucose (mg/dL) 160 H 160 H 154 H (75-99) mg/dL 02/13/21 Range/Units 06:56 Sodium 133 L (137-145) mmol/L Carbon Dioxide 20 L (22-30) mmol/L BUN 26 H (7-17) mg/dL Glucose 145 H (74-99) mg/dL POC Glucose (mg/dL) (75-99) mg/dL
--- NOTE | 2021-02-16 06:19 | CDI ---
Documentation Clarification Form Date: 02/16/21 From: Jessica Jones Admit Date: 02/10/2021 07:43:00 AM Patient Name: Piedad Moses Visit Number: [id number] Discharge Date: 02/13/2021 11:34:00 AM ATTENTION: The Clinical Documentation Specialists (CDI) and [facility] Coding Staff appreciate your assistance in clarifying documentation. Please respond to the clarification below the line at the bottom and electronically sign. The CDI & [facility] Coding staff will review the response and follow-up if needed. Please note: Queries are made part of the Legal Health Record. If you have any questions, please contact the author of this message via ITS. Dr. Francisco Ramirez, Mild acute renal failure is documented in the discharge summary which may lack sufficient clinical evidence/support in the medical record. Additional clarification is requested. History/Risk Factors: PAF, Hypertensive heart disease with acute on chronic systolic CHF Clinical Indicators: CR: 0.91, 0.99, 1.02, 0.95 (02/10-02/13) Treatment: Mike was dc'd. Please clarify if acute renal failure is a valid diagnosis? [ ] Yes, [insert diagnosis] is present as evidence by (additional clinical support): [X ] No, [insert diagnosis] is ruled out [ ] Other (please specify diagnosis) [ ] Unable to determine MTDD
--- NOTE | 2021-02-16 06:40 | CDI ---
Documentation Clarification Form Date: 02/16/21 From: Jessica Jones Admit Date: 02/10/2021 07:43:00 AM Patient Name: Piedad Moses Visit Number: [id number] Discharge Date: 02/13/2021 11:34:00 AM ATTENTION: The Clinical Documentation Specialists (CDI) and [facility] Coding Staff appreciate your assistance in clarifying documentation. Please respond to the clarification below the line at the bottom and electronically sign. The CDI & [facility] Coding staff will review the response and follow-up if needed. Please note: Queries are made part of the Legal Health Record. If you have any questions, please contact the author of this message via ITS. Dr. Francisco Ramirez, Acute hypoxic respiratory failure is documented 02/12 in progress note and the discharge summary which may lack sufficient clinical evidence/support in the medical record. Additional clarification is requested. History/Risk Factors: PAF, Hypertensive heart disease with acute on chronic systolic CHF Clinical Indicators: O2 sats on room air once on 02/10 & 02/11,then 02/12 & 02/13: 96, 95, 95, 95, 95, 95, 97, 97, 97, 96, 97, 96, 97, 96, 96, 96, 96, 96, 96, 94,96, 94, 94, 97, 97, 94, 97, 94, 97, 94, 97, 94, 97, 94, 97, 98, 97, 98, 97, 98, 96, 98, 96, O2 sat on oxygen 2L 02/10, 02/14 once on 02/12 & 02/13: 96, 97, 97, 96, 97, 97, 96, 97, 97, 97, 95, 97, 97, 95, 95, 97,95, 95, 95, 95, 95, 95, 95, 95, 96, 95, 95, 96, 95, 96, 95, 96, 100, 96, 100, 100, 100, 95, 100, 95, 95, 95, 95, 98, 95, 98, 98, 95, 98, 95, 95, 97, 95, 97, 95, 97, 97, 97, 99, 99, 99, 99, 99, 96 Treatment: oxygen Please clarify if acute hypoxic respiratory failure is a valid diagnosis? [ ] Yes, [insert diagnosis] is present as evidence by (additional clinical support): [ X ] No, [insert diagnosis] is ruled out [ ] Other (please specify diagnosis) [ ] Unable to determine MTDD
== END 2021-02-13 11:34 | disposition home or self-care (01) | DRG 308 ==
LOC: EC 05:36 → 3SCARD 07:43
PROVIDERS: ADMIT Family Medicine; ATTEND Family Medicine
DX: I48.0 Paroxysmal atrial fibrillation (principal); I50.23 Acute on chronic systolic (congestive) heart failure; I42.9 Cardiomyopathy, unspecified; I11.0 Hypertensive heart disease with heart failure; I95.9 Hypotension, unspecified; E11.9 Type 2 diabetes mellitus without complications; J44.9 Chronic obstructive pulmonary disease, unspecified; Z20.822 Contact with and (suspected) exposure to COVID-19; E78.5 Hyperlipidemia, unspecified; I08.1 Rheumatic disorders of both mitral and tricuspid valves; Z79.01 Long term (current) use of anticoagulants; Z79.84 Long term (current) use of oral hypoglycemic drugs; Z79.899 Other long term (current) drug therapy; Z90.49 Acquired absence of other specified parts of digestive tract; Z90.710 Acquired absence of both cervix and uterus; Z87.891 Personal history of nicotine dependence; Z87.19 Personal history of other diseases of the digestive system; Z87.42 Personal history of other diseases of the female genital tract; Z85.118 Personal history of other malignant neoplasm of bronchus and lung; Z98.890 Other specified postprocedural states; Z88.1 Allergy status to other antibiotic agents; Z88.5 Allergy status to narcotic agent; Z88.2 Allergy status to sulfonamides; Z80.8 Family history of malignant neoplasm of other organs or systems; Z80.0 Family history of malignant neoplasm of digestive organs; Z80.3 Family history of malignant neoplasm of breast
CPT/HCPCS: 36415; 71046; 80048; 80053; 80061; 83605; 83735; 83880; 84484; 85025; 85610; 85730; 87635; 93005; 93306; 94760; 96365; 99291

== ENCOUNTER → 2021-02-23 | Outpatient (CLI) | payer MEDICARE ==
--- NOTE | 2021-02-25 21:14 | PE ---
EXAMINATION TYPE: PET CT fusion skull to thigh DATE OF EXAM: 02/23/2021 COMPARISON: Most recent CT January 16, 2021 and older studies. HISTORY: Bilateral non-small cell lung cancer diagnosed 2019. TECHNIQUE: Following the intravenous administration of 11.84 mCi of F-18 FDG, whole body images are performed from the skull base to the midthigh. Images are reviewed on the computer in the coronal, a xial, and sagittal planes. Reconstructed rotating images are created on independent workstation and reviewed on the computer. A localization and attenuation correction CT is performed in conjunction with the PET scan. SCAN: Subsequent Scan FINDINGS: SKULL BASE AND NECK: No new areas of abnormal hypermetabolic uptake. CHEST, MEDIASTINUM, AND HILAR REGION: Mild underlying emphysematous changes redemonstrated. Persistent hypermetabolic anterior left mid lung masslike consolidation with peripheral postobstructi ve atelectasis measuring approximately 7.4 x 3.9 cm current study axial image 84 with abnormal hyperm etabolic uptake, max SUV is 12.89. Mild hypermetabolic uptake in prominent right tracheobronchial 11 x 10 mm lymph node axial image 82 i ncreased in size from most recent prior PET/CT, max SUV is 3.61. Suspicious hypermetabolic anterior s uperior mediastinal right paratracheal lymph node axial image 69, max SUV is 3.35. Suspicious subcent imeter right supraclavicular lymph node adjacent to thyroid right gland axial image 56, max SUV is 3. 1. Masslike consolidation right hilar region extending posteriorly and inferiorly shows no suspicious hy permetabolic uptake favoring posttreatment change. ABDOMEN AND PELVIS: Stable small adrenal masses without abnormal hypermetabolic uptake. Normal excret ion. Nonspecific distal bowel uptake. Along the left lower pelvic sidewall there is asymmetric muscul ar enlargement with abnormal hypermetabolic uptake axial image 217 corresponding to subtle enhancing lesion on recent CT making it suspicious for a 4.3 x 2.5 cm metastatic lesion. Max SUV is 13.61. Art tional rim-enhancing hypermetabolic posterior inferior right gluteal lesion measuring 4.2 x 2.4 cm ax ial image 232 identified on current study, max SUV is 9.72. No additional new areas of abnormal hypermetabolic uptake. OSSEOUS STRUCTURES: No new areas of abnormal hypermetabolic uptake. OTHER CT: Mild to moderate calcified plaque left greater than right carotid bulbs. Cardiomegaly with moderate to severe three-vessel coronary artery calcification is redemonstrated. En larged main pulmonary artery suggesting underlying pulmonary artery hypertension is redemonstrated. E ctatic ascending aorta up to 3.8 cm is redemonstrated. Postsurgical change to the lumbar spine is redemonstrated. Moderate calcified plaque abdominal aorta extends into branch vessels. Uterus is surgically absent. IMPRESSION: Worsening left-sided neoplasm is confirmed with post obstructive atelectasis. Recurrent s uspicious thoracic adenopathy noted. Two subtle unusual hypermetabolic lesions in the left pelvic mus ximena and inferior lateral right gluteal muscle worrisome for metastatic disease on current study.
== END | disposition home or self-care (01) ==
LOC: RADPETMAIN 10:48
PROVIDERS: ATTEND Internal Medicine Hematology & Oncology
DX: C34.12 Malignant neoplasm of upper lobe, left bronchus or lung (principal); C34.91 Malignant neoplasm of unspecified part of right bronchus or lung; J98.11 Atelectasis; R59.0 Localized enlarged lymph nodes
CPT/HCPCS: 78815; A9552

== ENCOUNTER → 2021-04-30 | Outpatient (CLI) | payer MEDICARE ==
--- NOTE | 2021-05-01 08:06 | CT ---
EXAMINATION TYPE: CT ChestAbdPelvis w con DATE OF EXAM: 04/30/2021 COMPARISON: Most recent PET CT February 23, 2021 and older studies HISTORY: Lung cancer, observe for mets. CT DLP: 1732.2 mGycm. Automated Exposure Control for Dose Reduction was Utilized. CONTRAST: CT scan of the thorax, abdomen and pelvis is performed with oral and with IV Contrast, patient inject ed with 100ml mL of Isovue 300. FINDINGS: LUNGS: Background mild underlying emphysematous change is redemonstrated. Persistent consolidation le ft suprahilar region extending anteriorly axial images 20 through 23 not significantly changed from m ost recent PET/CT measuring 6.3 x 3.1 cm axial image 21 combination of mass with peripheral obstructi ve atelectasis. More posterior inferior bulge or neoplastic involvement axial image 22 redemonstrated corresponding to recent PET/CT image 83. Stable irregular consolidation posterior right hilar level measuring approximately 5.0 x 3.8 cm which was a metabolic on recent PET/CT consistent with treated n eoplasm and/or scarring. No new or enlarging nodules or masses. No pleural effusion or pneumothorax is noted bilaterally. MEDIASTINUM: Stable right tracheobronchial lymph node measuring 1.0 x 1.0 cm on axial image 20. No ne w or enlarging greater than 1.0 cm lymph nodes. Stable subcentimeter right hilar lymph node axial ramos ge 26. Enlarged main pulmonary artery at 3.4 cm axial image [address] findings consistent with u nderlying pulmonary artery hypertension. No pericardial effusion is seen. Stable mild cardiomegaly. Coronary artery calcification is redemonstrated. Moderate mixed plaque in the aortic arch again seen. LIVER/GB: Mild central extrahepatic biliary dilatation at 12 mm coronal image 46 not significantly ch anged from most recent CT. No new intrahepatic biliary dilatation. Gallbladder noted surgically absen t. PANCREAS: No significant abnormality is seen. SPLEEN: Mild splenomegaly at 14.4 cm long axis coronal image 73. ADRENALS: Stable small 1.5 right adrenal nodule axial image 54 and 1.2 cm left adrenal nodule posteri or limb axial image 53. Old presumed benign. KIDNEYS: Subcentimeter thin-walled cyst anterior right kidney series 3 image 67 is stable presumed be nign. There is additional stable 2.1 cm low dense lesion medially lower pole of the right kidney imag e 70 presumed benign thin-walled cyst. Kenu-[id number] concentric wall thickening anterior superior bladder wall. BOWEL: Oral contrast does not reach level of terminal ileum making evaluation of distal bowel slightl y suboptimal. No suspicious small or large bowel dilatation. Somewhat redundant sigmoid colon redemon strated. A few sigmoid colonic diverticula are noted. GENITAL ORGANS: Uterus is surgically absent. Remnant left ovarian tissue suspected axial image 88. LYMPH NODES: No new greater than 1cm abdominal or pelvic lymph nodes are appreciated. OSSEOUS STRUCTURES: Postsurgical change L2-S1 levels is redemonstrated. Posterior decompression díaz es noted. Moderate narrowing of both hip joints. OTHER: Moderate to severe mixed plaque of the aorta extends into branch vessels. The posterior lateral inferior right gluteal 3.4 x 2.1 cm lesion is fairly stable from most recent PE T/CT. Similar lesion left obturator echo technician measuring 3.1 x 1.7 cm axial image 108. IMPRESSION: Overall stable findings from most recent PET CT. There is stable left midlung neoplasm wi th anterior superior extension and some postobstructive atelectasis. Stable suspicious slightly enlar ged mildly hypermetabolic right tracheobronchial lymph node. Stable suspicious pelvic and proximal ri ght lower extremity intramuscular metastatic deposits seen better on PET CT versus CT.
== END | disposition home or self-care (01) ==
LOC: RADCTMAIN 16:36
PROVIDERS: ATTEND Internal Medicine Hematology & Oncology
DX: C34.92 Malignant neoplasm of unspecified part of left bronchus or lung (principal)
CPT/HCPCS: 82565; 84520; 71260; 74177; 36415; Q9967

== ENCOUNTER → 2021-06-16 | Outpatient (CLI) | payer MEDICARE ==
--- NOTE | 2021-06-16 12:22 | MR ---
EXAMINATION TYPE: MR brain wo/w con DATE OF EXAM: 06/16/2021 COMPARISON: 12/13/2020 HISTORY: Lung cancer, evaluate for metastatic disease. TECHNIQUE: Multiplanar, multisequence images of the brain and brainstem is performed without and with IV contras t, utilizing 8.5 mL intravenous Gadavist . FINDINGS: The ventricles, basal cisterns and sulci over the convexities are within normal limits. On diffusion-weighted imaging, there is no acute ischemic event. In the posterior left temporal lobe adjacent to the tentorium there is a proximal 8 mm well-circumscr ibed mass with diffuse enhancement which was seen on the prior study is unchanged. There is no vasoge cj edema and therefore metastatic disease is again considered likely. This possibly represents a sma ll meningioma. No new lesions are seen. There has been interval development of marked inflammatory changes in the paranasal sinuses consisten t with pansinusitis. IMPRESSION: 1. Stable small enhancing mass adjacent to the tentorium in the posterior left temporal lobe which po ssibly represents a meningioma. Metastatic disease is not entirely excluded but is felt to be less li morris. 2. Interval development of marked pansinusitis. 3. No acute ischemic event
== END | disposition home or self-care (01) ==
LOC: RADMRIMAIN 11:04
PROVIDERS: ATTEND Radiology Radiation Oncology
DX: C34.31 Malignant neoplasm of lower lobe, right bronchus or lung (principal); J32.4 Chronic pansinusitis; G93.89 Other specified disorders of brain
CPT/HCPCS: 70553; A9585

== ENCOUNTER → 2021-06-18 | Outpatient (CLI) | payer MEDICARE | LOC: RADONCKCI 11:00 | PROVIDERS: ATTEND Radiology Radiation Oncology | DX: Z53.9 Procedure and treatment not carried out, unspecified reason (principal) ==

== ENCOUNTER → 2021-07-04 | Outpatient (CLI) | payer MEDICARE ==
--- NOTE | 2021-07-04 14:37 | CT ---
EXAMINATION TYPE: CT ChestAbdPelvis w con DATE OF EXAM: 07/04/2021 COMPARISON: 04/30/2021, 02/23/2021 HISTORY: 75-year-old female C34.91, Lung cancer. TECHNIQUE: Contiguous axial scanning of the chest, abdomen, and pelvis performed with IV Contrast, pa tient injected with 80 mL of Isovue M300. Delayed images through the kidneys were obtained. Coronal/s agittal reconstructions performed. CT DLP: 1397.3 mGycm Automated exposure control for dose reduction was used. FINDINGS: CHEST: Heart borderline enlarged without pericardial effusion. Scattered three-vessel coronary artery calcif ications are present. Borderline ectatic ascending aorta 3.5 cm. Mild to moderate atherosclerotic arch calcifications with a bovine configuration to the aortic arch. Enlarging right paratracheal lymphadenopathy currently measuring up to 1.7 cm versus 1 cm, previously . Right supraclavicular lymph node also larger at 1.4 cm compared to 1.0 cm, previously. Worsening right perihilar consolidation extending to the superior segment right lower lobe and centra l aspect of the posterior right lower lobe to the pleural surface. This may reflect progressive post radiation therapy changes. However, there is a new 1 cm right midlung pulmonary nodule, axillary 26. Anterior left perihilar and left mid lung mass currently measures 8.2 x 2.9 cm versus 6.3 x 3.1 cm, p reviously. Patchy and nodular postobstructive changes are present in the left upper lobe, similar to slightly increased from prior exam. These mild emphysema. Strandy areas of atelectasis or scarring in the lower lungs. No pleural effusio n. ABDOMEN: No focal liver lesion. Borderline in size measuring 17.3 cm. Portal venous system is patent. Stable m ildly dilated bile duct at 9 mm likely due to postcholecystectomy status. Slight 1.1 cm nodularity right adrenal gland is unchanged. Left adrenal gland and pancreas show no gr oss abnormality. Bilateral renal cortical hypodensities, largest measuring 2.5 cm, likely cysts. Borderline splenomegaly at 13.7 cm measured on coronal series. Moderate atherosclerotic calcifications abdominal aorta and common iliac arteries. No dilated small bowel, free fluid, or free air. No mesenteric or retroperitoneal lymphadenopathy see n. There is moderate stool burden. Oral contrast has entered the cecum. Redundant sigmoid colon. Mild di verticular change distal sigmoid. No pericolic inflammatory change. PELVIS: Bladder is urine distended. Uterus surgically absent. Some curvilinear thickening along the left gómez c chain may represent the left ovary or some chronic scarring. Clinically correlate. Right ovary not seen. No abnormal fluid collection in the pelvis or pelvic lymphadenopathy. Redemonstrated 4.2 x 2.7 cm mass of the left obturator internus (versus 4.0 x 2.5 cm, previously). Redemonstrated 4.8 x 2.8 cm mass of the right gluteus juliet with some central necrosis (versus 4.2 x 2.6 cm, previously). BONES: Mild to moderate degenerative change of the hips. Degenerative subarticular sclerosis right SI joint. Multiple surgical change of L2-S1 posterior and interbody lumbar fusion. Moderate degenerative disc disease lower thoracic spine and upper lumbar spine. Degenerative change sternoclavicular joints. No osseous destructive process seen. IMPRESSION: 1. FINDINGS SUGGEST DISEASE PROGRESSION. ANTERIOR LEFT PERIHILAR/MID LUNG MASS SLIGHTLY LARGER AT 8.2 CM VERSUS 6.3 CM, PREVIOUSLY. PATCHY AND NODULAR POSTOBSTRUCTIVE CHANGES IN THE LEFT UPPER LOBE ARE SIMILAR TO SLIGHTLY INCREASED. 2. PROGRESSION IN THE RIGHT PARATRACHEAL AND RIGHT SUPRACLAVICULAR LYMPHADENOPATHY CURRENTLY MEASURIN G UP TO 1.7 CM. 3. NEW 1 CM RIGHT MIDLUNG PULMONARY NODULE IS SUSPICIOUS. LEFT OBTURATOR INTERNUS AND RIGHT GLUTEUS M AXIMUS SOFT TISSUE METASTASES SHOW SLIGHT INTERVAL ENLARGEMENT WELL (MEASURING UP TO 4.8 CM VERSUS 4.2 CM, PREVIOUSLY). 4. WORSENING RIGHT PERIHILAR AND RIGHT LOWER LOBE CONSOLIDATION, SUSPECTED PROGRESSIVE POST RADIATION THERAPY CHANGES. CLINICALLY CORRELATE.
== END | disposition home or self-care (01) ==
LOC: RADCTMAIN 10:41
PROVIDERS: ATTEND Internal Medicine Hematology & Oncology
DX: C34.91 Malignant neoplasm of unspecified part of right bronchus or lung (principal); R59.0 Localized enlarged lymph nodes; J98.4 Other disorders of lung
CPT/HCPCS: 82565; 84520; 71260; 74177; 36415; Q9967 ×2

== ENCOUNTER 2021-07-12 15:18 | Inpatient (IN) | payer MEDICARE ==
[2021-07-12] MEDS ORDERED: HYDROmorphone 0.5 MG/0.5 ML SYRINGE IVP STA ×2 (16:07→17:22)
--- NOTE | 2021-07-12 16:23 | ED ---
General Adult HPI - General Chief complaint: Fall Stated complaint: Fall Time Seen by Provider: 07/12/21 15:58 Source: patient, EMS Mode of arrival: EMS Limitations: no limitations, physical limitation - History of Present Illness Initial comments: Dictation was produced using [employer] dictation software. please excuse any grammatical, word or spelling errors. Chief Complaint: 75-year-old female presents to the emergency department with right lower extremity pain after fall History of Present Illness: Patient is 75-year-old female she presents emergency Department with right lower extremity pain after fall. Patient states she fell backwards on her back. She doesn't remember falling. Denies any loss of consciousness or head injury. She states that after the fall she is having significant right lower extremity pain. Patient takes anticoagulation medications to treat A. fib. She has a history of lung cancer. Patient states that most of her pain is in her right knee area. EMS brought the patient to the ER noted that she had a shortened right lower extremity. The ROS documented in this emergency department record has been reviewed and confirmed by me. Those systems with pertinent positive or negative responses h ave been documented in the HPI. All other systems are other negative and/or noncontributory. PHYSICAL EXAM: General Impression: Alert and oriented x3, acute distress secondary to pain HEENT: Normocephalic atraumatic, extra-ocular movements intact, pupils equal and reactive to light bilaterally, mucous membranes moist. Cardiovascular: Heart regular rate and rhythm Chest: Able to complete full sentences, no retractions, no tachypnea Abdomen: abdomen soft, non-tender, non-distended, no organomegaly Musculoskeletal: Pulses present and equal in all extremities, no peripheral edema Right lower extremity: Neurovascularly intact, suprapatellar effusion to the right knee, there is significant induration and swelling around the distal femur Motor: no focal deficits noted Neurological: CN II-XII grossly intact, no focal motor or sensory deficits noted Skin: Intact with no visualized rashes Psych: Normal affect and mood ED course: 75-year-old female presents with right lower extremity pain after fall. It's not entirely clear whether patient fell from a syncopal cause or mechanical cause. She does ago have any complaint except for her right lower extremity. Vital Signs upon arrival are within acceptable limits. Laboratory evaluation obtained. CBC, coag panel, metabolic panel within acceptable limits. Computed tomography scan of the head and C-spine shows no acute processes. Computed pelvis x-ray nonacute. Chest x-ray nonacute. The x-ray shows comminuted distal femur fracture which posterior did displace. Case was discussed with orthopedic surgery, James Yepez's who spoke with his attending Dr. Friend. They request [employer] traction splint for the patient. Otherwise p praneethient will be admitted to orthopedic surgery with medicine on consult. EKG interpretation: Ventricular rate 71, sinus rhythm, IA interval 219, QRS 1:30, QTc 431. No IA prolongation, no QTC prolongation, no ST or T-wave changes noted. Overall, this EKG is unremarkable - Related Data Home Medications Medication Instructions Recorded Confirmed Fenofibrate 160 mg PO DAILY 06/30/19 07/12/21 metFORMIN HCL [Glucophage] 500 mg PO PC-SUPPER 06/30/19 07/12/21 Simvastatin [Zocor] 20 mg PO HS 07/13/19 07/12/21 Metoprolol Tartrate [Lopressor] 37.5 mg PO TID 09/21/20 07/12/21 Amiodarone [Cordarone] 200 mg PO DAILY 07/12/21 07/12/21 Cholecalciferol [Vitamin D3 (125 125 mcg PO DAILY 07/12/21 07/12/21 Mcg = 5000 Iu)] Furosemide [Lasix] 20 mg PO DAILY 07/12/21 07/12/21 HYDROcodone/APAP 7.5-325MG [[place] 1 tab PO Q6HR PRN 07/12/21 07/12/21 7.5-325] Spironolactone 12.5 mg PO DAILY 07/12/21 07/12/21 lisinopriL [Zestril] 20 mg PO HS 07/12/21 07/12/21 Previous Rx's Medication Instructions Recorded Apixaban [Eliquis] 5 mg PO BID 30 Days #60 tab 05/29/20 Allergies Allergy/AdvReac Type Severity Reaction Status Date / Time morphine AdvReac Severe Nausea & Verified 07/12/21 17:47 Vomiting cefuroxime [From Ceftin] AdvReac Unknown Nausea Verified 07/12/21 17:47 Sulfa (Sulfonamide AdvReac Unknown Nausea, Verified 07/12/21 17:47 Antibiotics) lightheaded Review of Systems ROS Statement: Those systems with pertinent positive or pertinent negative responses have been documented in the HPI. ROS Other: All systems not noted in ROS Statement are negative. Past Medical History Past Medical History: Atrial Fibrillation, Cancer, Diabetes Mellitus, Hypertension Additional Past Medical History / Comment(s): mass left lung Jul 2019, cough, occasional phlegm. History of Any Multi-Drug Resistant Organisms: None Reported Past Surgical History: Back Surgery, Cholecystectomy, Hysterectomy Additional Past Surgical History / Comment(s): Exploratory surgery, plan for lung biopsy Jul 19 2019 Past Anesthesia/Blood Transfusion Reactions: No Reported Reaction Past Psychological History: No Psychological Hx Reported Smoking Status: Former smoker Past Alcohol Use History: Occasional Past Drug Use History: None Reported - Past Family History Mother Family Medical History: Cancer Additional Family Medical History / Comment(s): BRAIN CANCER. Sister(s) Family Medical History: Cancer Additional Family Medical History / Comment(s): BREAST AND PANCREATIC CANCER. General Exam Limitations: no limitations, physical limitation Course Vital Signs 07/12/21 07/12/21 07/12/21 15:19 17:29 18:07 Temperature 97.7 F Pulse Rate 60 69 72 Respiratory 18 18 18 Rate Blood Pressure 168/79 151/56 162/78 O2 Sat by Pulse 95 94 L 98 Oximetry Medical Decision Making - Lab Data Result diagrams: 07/12/21 16:56 07/12/21 16:56 Lab Results 07/12/21 07/12/21 07/12/21 Range/Units 16:55 16:56 16:56 WBC 10.7 H (3.8-10.6) k/uL RBC 3.94 (3.80-5.40) m/uL Hgb 11.0 L (11.4-16.0) gm/dL Hct 35.7 (34.0-46.0) % MCV 90.7 (80.0-100.0) fL MCH 28.0 (25.0-35.0) pg MCHC 30.9 L (31.0-37.0) g/dL RDW 16.0 H (11.5-15.5) % Plt Count 186 (150-450) k/uL MPV 8.2 Neutrophils % 92 % Lymphocytes % 3 % Monocytes % 3 % Eosinophils % 1 % Basophils % 0 % Neutrophils # 9.9 H (1.3-7.7) k/uL Lymphocytes # 0.3 L (1.0-4.8) k/uL Monocytes # 0.4 (0-1.0) k/uL Eosinophils # 0.1 (0-0.7) k/uL Basophils # 0.0 (0-0.2) k/uL Hypochromasia Marked Anisocytosis Slight PT (9.0-12.0) sec INR (<1.2) APTT (22.0-30.0) sec Sodium (137-145) mmol/L Potassium (3.5-5.1) mmol/L Chloride (98-107) mmol/L Carbon Dioxide (22-30) mmol/L Anion Gap mmol/L BUN (7-17) mg/dL Creatinine (0.52-1.04) mg/dL Est GFR (CKD-EPI)AfAm (>60 ml/min/1.73 sqM) Est GFR (CKD-EPI)NonAf (>60 ml/min/1.73 sqM) Glucose (74-99) mg/dL Calcium (8.4-10.2) mg/dL Magnesium (1.6-2.3) mg/dL Total Bilirubin (0.2-1.3) mg/dL AST (14-36) U/L ALT (4-34) U/L Alkaline Phosphatase (38-126) U/L Troponin I (0.000-0.034) ng/mL Total Protein (6.3-8.2) g/dL Albumin (3.5-5.0) g/dL Blood Type A Negative Blood Type Confirm A Negative Blood Type Recheck No Previous Record Bld Type Recheck Status CABO Indicated Antibody Screen NEGATIVE Spec Expiration Date 07/15/2021235507/12/21 07/12/21 07/12/21 Range/Units 16:56 16:56 16:56 WBC (3.8-10.6) k/uL RBC (3.80-5.40) m/uL Hgb (11.4-16.0) gm/dL Hct (34.0-46.0) % MCV (80.0-100.0) fL MCH (25.0-35.0) pg MCHC (31.0-37.0) g/dL RDW (11.5-15.5) % Plt Count (150-450) k/uL MPV Neutrophils % % Lymphocytes % % Monocytes % % Eosinophils % % Basophils % % Neutrophils # (1.3-7.7) k/uL Lymphocytes # (1.0-4.8) k/uL Monocytes # (0-1.0) k/uL Eosinophils # (0-0.7) k/uL Basophils # (0-0.2) k/uL Hypochromasia Anisocytosis PT 12.6 H (9.0-12.0) sec INR 1.2 H (<1.2) APTT 22.7 (22.0-30.0) sec Sodium 135 L (137-145) mmol/L Potassium 4.4 (3.5-5.1) mmol/L Chloride 102 (98-107) mmol/L Carbon Dioxide 22 (22-30) mmol/L Anion Gap 11 mmol/L BUN 22 H (7-17) mg/dL Creatinine 0.87 (0.52-1.04) mg/dL Est GFR (CKD-EPI)AfAm 76 (>60 ml/min/1.73 sqM) Est GFR (CKD-EPI)NonAf 66 (>60 ml/min/1.73 sqM) Glucose 172 H (74-99) mg/dL Calcium 8.9 (8.4-10.2) mg/dL Magnesium 2.0 (1.6-2.3) mg/dL Total Bilirubin 0.7 (0.2-1.3) mg/dL AST 35 (14-36) U/L ALT 9 (4-34) U/L Alkaline Phosphatase 45 (38-126) U/L Troponin I <0.012 (0.000-0.034) ng/mL Total Protein 7.3 (6.3-8.2) g/dL Albumin 3.7 (3.5-5.0) g/dL Blood Type Blood Type Confirm Blood Type Recheck Bld Type Recheck Status Antibody Screen Spec Expiration Date Disposition Clinical Impression: Femur fracture, Fall Disposition: ADMITTED IP TO THIS [facility] Condition: Serious Referrals: Francisco Ramirez DO [Primary Care Provider] - 1-2 days
--- NOTE | 2021-07-12 16:50 | CT ---
EXAMINATION TYPE: CT brain juan holland con DATE OF EXAM: 07/12/2021 COMPARISON: NONE HISTORY: Fall today with headache and neck pain. CT DLP: 1346.2 mGycm. Automated Exposure Control for Dose Reduction was Utilized. TECHNIQUE: CT scan of the head and cervical spine are performed without contrast. FINDINGS: There is no acute intracranial hemorrhage or midline shift identified. Mild ventricular a nd sulcal prominence. Moderate low-attenuation in the periventricular white matter. The calvarium is intact. Opacity right maxillary sinus with air-fluid level. Completely opacified sliced portion left maxillary sinus. Globes are intact bilaterally. Cervical spine is visualized in its entirety from C1 through upper thoracic levels and demonstrates s traightened alignment without evidence of acute fracture or dislocation. Prevertebral soft tissue ap pears within normal limits. The C1-C2 articulation is within normal limits on the coronal images. V ertebral body heights are maintained. Mild to moderate disc space narrowing C4-C5 through C6-C7 level s. Posterior disc herniations or pacing anterior thecal sac at these levels on sagittal and axial ramos ges. Review of axial images shows additional uncovertebral facet degenerative changes causing mild-to -moderate bilateral neural foraminal narrowing at several levels. Thyroid gland appears within normal limits. Lung apices show no pneumothorax. IMPRESSION: 1. There is no acute fracture or dislocation evident in the cervical spine. 2. No acute intracranial hemorrhage or midline shift is seen.
--- NOTE | 2021-07-12 16:52 | XR ---
EXAMINATION TYPE: XR knee limited RT DATE OF EXAM: 07/12/2021 CLINICAL HISTORY: Pain after fall TECHNIQUE: Frontal and lateral views of the right knee are obtained. COMPARISON: None. FINDINGS: There is acute displaced comminuted fracture distal diaphysis right femur. Distal fracture fragment is roughly 5.0 cm impacted and 4.0 cm posteriorly displaced along with 2.0 cm laterally tra nslated. Mild to moderate tricompartment joint space loss greatest medial tibiofemoral compartment wh ere there is moderate medial spurring. Overlying clothing or and/or blanket material is present. IMPRESSION: As above.
--- NOTE | 2021-07-12 16:54 | XR ---
EXAMINATION TYPE: XR Hip RT and AP Pelvis DATE OF EXAM: 07/12/2021 COMPARISON: CT pelvis July 04, 2021 HISTORY: Fall injury with pelvic and right hip pain. TECHNIQUE: A single AP view of the pelvis is obtained. Two views of the right hip are obtained. FINDINGS: There is no acute fracture/dislocation evident in the pelvis. The hip and sacroiliac join ts appear symmetric and unremarkable. Pubic symphysis is intact. Surgical material with ossific fusio n arthrodesis in the lumbar spine is partially imaged to the upper sacrum. Two views of right hip show no additional proximal acute fracture or dislocation. No focal lytic or sclerotic lesion seen in the proximal right femur. Moderate medial arterial vascular calcification. IMPRESSION: There is no additional acute fracture or dislocation in the pelvis or right hip.
--- NOTE | 2021-07-12 16:55 | XR ---
EXAMINATION TYPE: XR chest 1V portable DATE OF EXAM: 07/12/2021 COMPARISON: Chest x-ray February 10, 2021. CT July 04, 2021. HISTORY: Fall injury with pain. History of lung cancer. TECHNIQUE: Single frontal view of the chest is obtained. FINDINGS: There is persistent left greater than right central increased opacities. Mild cardiomegaly redemonstrated. No pneumothorax seen bilaterally. The osseous structures are intact. IMPRESSION: Cardiomegaly with bilateral central masslike opacities are stable worrisome for neoplasm .
[2021-07-12 17:06] LABS: Anisocytosis Slight; Basophils % (A) 0 %; Eosinophils # (A) 0.1 k/uL (0-0.7); Eosinophils % (A) 1 %; HCT 35.7 % (34.0-46.0); Hypochromasia Marked; Lymphocytes # (A) 0.3 k/uL (1.0-4.8); Lymphocytes % (A) 3 %; MCHC 30.9 g/dL (31.0-37.0); MCV 90.7 fL (80.0-100.0); Mean Platelet Volume 8.2; Monocytes # (A) 0.4 k/uL (0-1.0); Monocytes % (A) 3 %; Neutrophils # (A) 9.9 k/uL (1.3-7.7); Neutrophils % (A) 92 %; Platelet Count 186 k/uL (150-450); RBC 3.94 m/uL (3.80-5.40); WBC 10.7 k/uL (3.8-10.6)
[2021-07-12 17:11] LABS: Albumin 3.7 g/dL (3.5-5.0); Calcium 8.9 mg/dL (8.4-10.2); Potassium 4.4 mmol/L (3.5-5.1); Total Bilirubin 0.7 mg/dL (0.2-1.3); Total Protein 7.3 g/dL (6.3-8.2)
[2021-07-12 17:13] LABS: INR 1.2 (<1.2); Partial Thromboplastin Time 22.7 sec (22.0-30.0); Prothrombin Time 12.6 sec (9.0-12.0)
[2021-07-12] MEDS ORDERED: HYDROmorphone 1 MG/ML 1 ML SYRINGE IVP STA (17:52)
[2021-07-12] MEDS ORDERED: ACETAMINOPHEN TAB 325 MG TAB PO PRN (18:21)
[2021-07-12] MEDS ORDERED: ONDANSETRON 4 MG/2 ML VIAL IVP PRN (18:21)
[2021-07-12] MEDS ORDERED: NALOXONE 0.4 MG/ML 1 ML VIAL IV PRN (18:21)
[2021-07-12] MEDS ORDERED: diazePAM 2 MG TAB PO PRN (20:08)
--- NOTE | 2021-07-12 20:22 | P.HPOR ---
History of Present Illness H&P Date: 07/12/21 Chief Complaint: RLE pain 75 yo female presented to the ED via EMS after FFS at home. She tripped and fell onto her RLE and felt a pop. She was unable to ambulate after. She c/o pain in her RLE and knee. She states a clicking of bones. She denies any numbness/tingling. Denies any BHT or LOC with the fall. States no pain in her hips, ankles or LLE. She states pain about her R knee. Denies any f/c/sob/cp at this time. Review of Systems 14 points review of systems completed and as stated in HPI, all other systems reviewed are negative. All systems: negative Constitutional: Reports as per HPI Past Medical History Past Medical History: Atrial Fibrillation, Cancer, Diabetes Mellitus, Hypertension Additional Past Medical History / Comment(s): mass left lung Jul 2019, cough, occasional phlegm. History of Any Multi-Drug Resistant Organisms: None Reported Past Surgical History: Back Surgery, Cholecystectomy, Hysterectomy Additional Past Surgical History / Comment(s): Exploratory surgery, plan for lung biopsy Jul 19 2019 Past Anesthesia/Blood Transfusion Reactions: No Reported Reaction Past Psychological History: No Psychological Hx Reported Smoking Status: Former smoker Past Alcohol Use History: Occasional Past Drug Use History: None Reported - Past Family History Mother Family Medical History: Cancer Additional Family Medical History / Comment(s): BRAIN CANCER. Sister(s) Family Medical History: Cancer Additional Family Medical History / Comment(s): BREAST AND PANCREATIC CANCER. Medications and Allergies Home Medications Medication Instructions Recorded Confirmed Type Fenofibrate 160 mg PO DAILY 06/30/19 07/12/21 History metFORMIN HCL [Glucophage] 500 mg PO PC-SUPPER 06/30/19 07/12/21 History Simvastatin [Zocor] 20 mg PO HS 07/13/19 07/12/21 History Apixaban [Eliquis] 5 mg PO BID 30 Days #60 tab 05/29/20 07/12/21 Rx Metoprolol Tartrate [Lopressor] 37.5 mg PO TID 09/21/20 07/12/21 History Amiodarone [Cordarone] 200 mg PO DAILY 07/12/21 07/12/21 History Cholecalciferol [Vitamin D3 (125 125 mcg PO DAILY 07/12/21 07/12/21 History Mcg = 5000 Iu)] Furosemide [Lasix] 20 mg PO DAILY 07/12/21 07/12/21 History HYDROcodone/APAP 7.5-325MG [[place] 1 tab PO Q6HR PRN 07/12/21 07/12/21 History 7.5-325] Spironolactone 12.5 mg PO DAILY 07/12/21 07/12/21 History lisinopriL [Zestril] 20 mg PO HS 07/12/21 07/12/21 History Allergies Allergy/AdvReac Type Severity Reaction Status Date / Time morphine AdvReac Severe Nausea & Verified 07/12/21 17:47 Vomiting cefuroxime [From Ceftin] AdvReac Unknown Nausea Verified 07/12/21 17:47 Sulfa (Sulfonamide AdvReac Unknown Nausea, Verified 07/12/21 17:47 Antibiotics) lightheaded Physical Examination Osteopathic Statement: *. No significant issues noted on an osteopathic structural exam other than those noted in the History and Physical/Consult. Patient is alert and oriented 3 appears well-nourished well-hydrated is in no acute distress. They does not appear septic. On exam the patient has no tenderness to palpation of her thoracic or lumbar spine. There is no edema or ballottement sign. TTP about the right knee and thigh Lower extremities with 5 out of 5 strength in all major muscle groups except for the RLE knee and hip motion secondary to fracture. Upper extremities show 5/5 strength in all major muscle groups. There is FROM that is painless of the b/l UE and LE in all major joints. They are intact to light touch sensation in L2 to S1 nerve distribution. Patient has palpable dorsalis pedis was posterior tibial pulses. Compartments are soft and compressible. Patient shows a negative Homans, Pabon's, negative Babinski's negative clonus bilaterally. negative straight leg raise bilaterally. No tensioning signs. Cranial nerves II through XII are grossly intact. Overall alignment is well-maintained in the sagittal coronal planes. Results Xrays of the Pelvis, hip, femur and knee on the Right are viewd. This demonstrates an oblique distal femur fracture that is displaced, shorted and externally rotated. There are no fractures noted of the femoral neck, tibial plateau or other bony areas visualized. Pelvis is level and congruent, no fractures noted. - Labs Labs: Abnormal Lab Results - Last 24 Hours (Table) 07/12/21 07/12/21 07/12/21 Range/Units 16:56 16:56 16:56 WBC 10.7 H (3.8-10.6) k/uL Hgb 11.0 L (11.4-16.0) gm/dL MCHC 30.9 L (31.0-37.0) g/dL RDW 16.0 H (11.5-15.5) % Neutrophils # 9.9 H (1.3-7.7) k/uL Lymphocytes # 0.3 L (1.0-4.8) k/uL PT 12.6 H (9.0-12.0) sec INR 1.2 H (<1.2) Sodium 135 L (137-145) mmol/L BUN 22 H (7-17) mg/dL Glucose 172 H (74-99) mg/dL Coronavirus (PCR) (Not Detectd) 07/12/21 Range/Units 19:05 WBC (3.8-10.6) k/uL Hgb (11.4-16.0) gm/dL MCHC (31.0-37.0) g/dL RDW (11.5-15.5) % Neutrophils # (1.3-7.7) k/uL Lymphocytes # (1.0-4.8) k/uL PT (9.0-12.0) sec INR (<1.2) Sodium (137-145) mmol/L BUN (7-17) mg/dL Glucose (74-99) mg/dL Coronavirus (PCR) Detected A (Not Detectd) H & H 07/12/21 Range/Units 16:56 Hgb 11.0 L (11.4-16.0) gm/dL Hct 35.7 (34.0-46.0) % Coagulation 07/12/21 Range/Units 16:56 INR 1.2 H (<1.2) Result Diagrams: 07/12/21 16:56 07/12/21 16:56 Assessment and Plan Assessment: 1. Right distal femoral shaft fracture, closed, comminuted, displaced 2. s/p ffs 3. complex medical patient Plan: NPO at [facility] RLE Pain control Traction boot with 10 lbs traction Knee immobilizer GI ppx Mechanical dvt ppx Plan for OR tomorrow 07/13/21 for surgical fixation of the Right femur. Orthopedic Surgery Risk Review Piedad Moses is a 75-year-old female presenting for evaluation of sudden onset right leg pain pain, inability to ambulate after . From standing at home. It was my pleasure to have seen and examined Piedad Moses. In our visit today we have had a chance to go over subjective complaints, physical examination findings and treatments including the natural course history without intervention and various interventional options. Her imaging demonstrates distal femoral shaft fracture oblique displaced shortened and rotated. On physical exam, Piedad Moses demonstrates pain with motion of lower extremity, which is NV intact at this time. I have explained to the patient that this fracture needs stabilization. Based on the patients imaging, physical exam, and the rapid progression and disabling nature of her symptoms, at this time I recommend surgery in the form or a: Retrograde femoral nail fixation right distal femur I discussed the risk and benefits of this procedure at length with Piedad Moses. Questions were invited and answered, and the patient wishes to proceed as outlined below. Currently, I am recommendin. Retrograde intramedullary nail fixation right distal femur fracture 2. Review of surgical risks and benefits as well as an educational packet on the proposed surgical procedure. Risks: All surgical procedures come with inherent risks, including those related to positioning, anesthesia, intraoperative findings, and postoperative complications. It is important to understand that surgery does not come with any guarantee of a successful outcome as complications and adverse events are always possible. The patient was given a handout discussing the surgical procedure and risks associated with the intervention, both of which were discussed with the patient. These risks include but are not limited to the following: - Experiencing same, different or even worse symptoms compared to before surgery. - Requiring further surgery or other forms of treatment presently or at some time in the future . - On an extreme but fortunately relatively rare basis severe complication such as blindness, stroke, heart attack, temporary and/or permanent nerve injury, paralysis, coma, or may occur, sometimes without known explanatio n. - Surgical complications may include but are not limited to risk of infection, fluid accumulation in the surgical dissection site, including a seroma or hematoma, that requires additional surgery, wound drainage, bleeding, new numbness or weakness, vision changes/loss, spinal fluid leakage, non-healing and/or infected incision, headaches, difficulty or inability to swallow, hoarseness, hemopneumothorax, pneumothorax, injury to nerves, spinal cord, blood vessels, lymphatics or other vital organs (i.e., bowel injury, injury to the great vessels); heterotopic bone formation; complications related to the hardware such as screws, rods, including misplaced hardware, device failure, hardware fracture/breakage, or hardware loosening; retained surgical instrumentations or devices and the need for further surgery. - Medical risks of the planned surgery include but are not limited to generalized Infections to the whole body or local areas outside of the surgical site (sepsis), heart attack, bleeding, anaphylaxis, meningitis, seizure, epilepsy, hearing loss, burn monreal, laceration of the head or other areas of the body, bruising, hypersensitivity of the skin, bladder over distension; allergic reaction; shoulder injury related to positioning; fat, blood and air clots to other areas of the body like heart, lungs, brain; failure of internal organs such as lungs, kidneys, liver and excessive bleeding. If blood transfusions are necessary, note that transfusions may cause intolerance reactions such as anaphylaxis or other complex reactions. Despite best efforts, the results of surgery might not heal in terms of bone, soft tissues such as skin, fascia, ligaments, and joints. [facility] has multiple operating rooms with single and overlapping rooms running daily. They currently function under the required guidelines as produced by the [employer] Committee with regards to the overlapping rooms and will continue to comply with changes to this policy as they occur. The requirements include and are complied with as follows: (1) the critical portions of the overlapping rooms will not occur at the same time, (2) the attending physician will be physically present during the critical portions of the procedure and immediately available during the entire case, and (3) a back-up attending is designated should the primary attending not be immediately available. The patient has had a chance to review all the listed information, has been give n print outs detailing this information, and has had all his/her questions answered to their satisfaction. It was my pleasure to have seen and examined Piedad Moses. In our visit today we have had a chance to go over my understanding of our patient's current condition, the natural course history without intervention and various interventional options. Questions were invited and answered, and the patient wishes to proceed as outlined above. I have seen and examined the patient for 25 minutes and we have spent more than 50% of the time in repeat and detailed counseling about the patient's condition, its natural course history with out and as much as can be predicted with surgery and re-review of various surgical treatment options. In conclusion, Piedad Moses and her granddaughter who was in the room with her requested we proceed with the above suggested surgery and are willing to accept risks and limitations of the suggested surgery as nature of the disease process and our best attempts at treatment for the condition. Thank you again for allowing us to be part of your patient's care. Please don't hesitate to contact me if you have any further questions. Signed and authenticated by: Pablo Rodriguez [facility] [address] [address]
[2021-07-12] MEDS: HYDROmorphone 1 MG/ML 1 ML SYRINGE IVP PRN (21:38)
[2021-07-13] MEDS: HYDROmorphone 1 MG/ML 1 ML SYRINGE IVP PRN ×6 (00:07→16:33)
[2021-07-13] MEDS: SODIUM CHLORIDE 0.9% 1,000 ML IV SCH ×4 (00:07→19:05)
[2021-07-13] MEDS ORDERED: LORazepam 2 MG/ML INJ IV PRN (03:59)
[2021-07-13] MEDS ORDERED: HYDROcodone/APAP 7.5-325MG 1 EACH TAB PO PRN (04:00)
[2021-07-13 06:56] LABS: Glucose,Whole Blood 109 mg/dL (75-99)
[2021-07-13] MEDS: METOPROLOL TARTRATE 12.5 MG TAB PO SCH ×3 (07:37→23:56)
[2021-07-13] MEDS: CYCLOBENZAPRINE 10 MG TAB PO PRN ×2 (07:37→17:42)
[2021-07-13] MEDS ORDERED: HYDROmorphone 1 MG/ML 1 ML SYRINGE IVP STA (07:54)
--- NOTE | 2021-07-13 08:09 | P.PN ---
Subjective Progress Note Date: 07/13/21 Principal diagnosis: Right distal femur fracture Patient seen and examined this morning she is fairly painful however her pain medications are due. She denies any numbness or tingling denies any other symptoms at this time. In speaking with the patient she also states that she is about to start chemotherapy and radiation for what is believed to be metastatic lung cancer. I discussed with her that this may change our management slightly for her fracture however she still is a fracture stabilized. She understood and was comfortable with this. Objective - Vital Signs Vital signs: Vital Signs Temp 98.5 F 07/13/21 06:27 Pulse 91 07/13/21 06:27 Resp 14 07/13/21 06:27 BP 122/68 07/13/21 06:27 Pulse Ox 94 L 07/13/21 06:27 Intake & Output 07/12/21 07/13/21 07/13/21 18:59 06:59 18:59 Output Total 500 Balance -500 Weight 83.915 kg 83.915 kg Output: Urine 500 Uretheral ([place]) 300 Other: Voiding Method Indwelling Catheter - Exam Patient is alert and oriented 3 appears well-nourished well-hydrated is in no acute distress. They does not appear septic. On exam the patient has no tenderness to palpation of her thoracic or lumbar spine. There is no edema or ballottement sign. Lower extremities with 5 out of 5 strength in all major muscle groups except right lower extremity limited due to fracture Upper extremities show 5/5 strength in all major muscle groups. There is FROM that is painless of the b/l UE and LE in all major joints. Except right lower extremity due to fracture They are intact to light touch sensation in L2 to S1 nerve distribution. Patient has palpable dorsalis pedis was posterior tibial pulses. Compartments are soft and compressible. Patient shows a negative Homans, Pabon's, negative Babinski's negative clonus bilaterally. negative straight leg raise bilaterally. No tensioning signs. Cranial nerves II through XII are grossly intact. Overall alignment is well-maintained in the sagittal coronal planes. - Constitutional General appearance: Present: cooperative - Labs CBC & Chem 7: 07/12/21 16:56 07/12/21 16:56 Labs: Abnormal Lab Results - Last 24 Hours (Table) 07/12/21 07/12/21 07/12/21 Range/Units 16:56 16:56 16:56 WBC 10.7 H (3.8-10.6) k/uL Hgb 11.0 L (11.4-16.0) gm/dL MCHC 30.9 L (31.0-37.0) g/dL RDW 16.0 H (11.5-15.5) % Neutrophils # 9.9 H (1.3-7.7) k/uL Lymphocytes # 0.3 L (1.0-4.8) k/uL PT 12.6 H (9.0-12.0) sec INR 1.2 H (<1.2) Sodium 135 L (137-145) mmol/L BUN 22 H (7-17) mg/dL Glucose 172 H (74-99) mg/dL POC Glucose (mg/dL) (75-99) mg/dL Coronavirus (PCR) (Not Detectd) 07/12/21 07/13/21 Range/Units 19:05 06:50 WBC (3.8-10.6) k/uL Hgb (11.4-16.0) gm/dL MCHC (31.0-37.0) g/dL RDW (11.5-15.5) % Neutrophils # (1.3-7.7) k/uL Lymphocytes # (1.0-4.8) k/uL PT (9.0-12.0) sec INR (<1.2) Sodium (137-145) mmol/L BUN (7-17) mg/dL Glucose (74-99) mg/dL POC Glucose (mg/dL) 109 H (75-99) mg/dL Coronavirus (PCR) Detected A (Not Detectd) Assessment and Plan Assessment: 1. Right distal femoral shaft fracture, closed, comminuted, displaced 2. s/p ffs 3. complex medical patient, history of metastatic lung cancer Plan: NPO at [place] RLE Pain control Traction boot with 10 lbs traction Knee immobilizer GI ppx Mechanical dvt ppx Plan for OR tomorrow 07/13/21 for surgical fixation of the Right femur. Orthopedic Surgery Risk Review Piedad Moses is a 75-year-old female presenting for evaluation of sudden onset right leg pain pain, inability to ambulate after . From standing at home. It was my pleasure to have seen and examined Piedad Moses. In our visit today we have had a chance to go over subjective complaints, physical examination findings and treatments including the natural course history without intervention and various interventional options. Her imaging demonstrates distal femoral shaft fracture oblique displaced shortened and rotated. On physical exam, Piedad Moses demonstrates pain with motion of lower extremity, which is NV intact at this time. I have explained to the patient that this fracture needs stabilization. Based on the patients imaging, physical exam, and the rapid progression and disabling nature of her symptoms, at this time I recommend surgery in the form or a: Retrograde femoral nail fixation right distal femur I discussed the risk and benefits of this procedure at length with Piedad Moses. Questions were invited and answered, and the patient wishes to proceed as outlined below. Currently, I am recommendin. Retrograde intramedullary nail fixation right distal femur fracture 2. Review of surgical risks and benefits as well as an educational packet on the proposed surgical procedure. Risks: All surgical procedures come with inherent risks, including those related to positioning, anesthesia, intraoperative findings, and postoperative complications. It is important to understand that surgery does not come with any guarantee of a successful outcome as complications and adverse events are always possible. The patient was given a handout discussing the surgical procedure and risks associated with the intervention, both of which were discussed with the patient. These risks include but are not limited to the following: - Experiencing same, different or even worse symptoms compared to before surgery. - Requiring further surgery or other forms of treatment presently or at some time in the future . - On an extreme but fortunately relatively rare basis severe complication such as blindness, stroke, heart attack, temporary and/or permanent nerve in jury, paralysis, coma, or may occur, sometimes without known explanation. - Surgical complications may include but are not limited to risk of infection, fluid accumulation in the surgical dissection site, including a seroma or hematoma, that requires additional surgery, wound drainage, bleeding, new numbness or weakness, vision changes/loss, spinal fluid leakage, non-healing and/or infected incision, headaches, difficulty or inability to swallow, hoarseness, hemopneumothorax, pneumothorax, injury to nerves, spinal cord, blood vessels, lymphatics or other vital organs (i.e., bowel injury, injury to the great vessels); heterotopic bone formation; complications related to the hardware such as screws, rods, including misplaced hardware, device failure, hardware fracture/breakage, or hardware loosening; retained surgical instrumentations or devices and the need for further surgery. - Medical risks of the planned surgery include but are not limited to generalized Infections to the whole body or local areas outside of the surgical site (sepsis), heart attack, bleeding, anaphylaxis, meningitis, seizure, epilepsy, hearing loss, burn monreal, laceration of the head or other areas of the body, bruising, hypersensitivity of the skin, bladder over distension; allergic reaction; shoulder injury related to positioning; fat, blood and air clots to other areas of the body like heart, lungs, brain; failure of internal organs such as lungs, kidneys, liver and excessive bleeding. If blood transfusions are necessary, note that transfusions may cause intolerance reactions such as anaphylaxis or other complex reactions. Despite best efforts, the results of surgery might not heal in terms of bone, soft tissues such as skin, fascia, ligaments, and joints. [facility] has multiple operating rooms with single and overlapping rooms running daily. They currently function under the required guidelines as produced by the [facility] with regards to the overlapping rooms and will continue to comply with changes to this policy as they occur. The requirements include and are complied with as follows: (1) the critical portions of the overlapping rooms will not occur at the same time, (2) the attending physician will be physically present during the critical portions of the procedure and immediately available during the entire case, and (3) a back-up attending is designated should the primary attending not be immediately available. The patient has had a chance to review all the listed information, has been given print outs detailing this information, and has had all his/her questions answered to their satisfaction. It was my pleasure to have seen and examined Piedad Moses. In our visit today we have had a chance to go over my understanding of our patient's current condition, the natural course history without intervention and various interventional options. Questions were invited and answered, and the patient wishes to proceed as outlined above. I have seen and examined the patient for 25 minutes and we have spent more than 50% of the time in repeat and detailed counseling about the patient's condition, its natural course history with out and as much as can be predicted with surgery and re-review of various surgical treatment options. In conclusion, Piedad Moses and her granddaughter who was in the room with her requested we proceed with the above suggested surgery and are willing to accept risks and limitations of the suggested surgery as nature of the disease process and our best attempts at treatment for the condition. Thank you again for allowing us to be part of your patient's care. Please don't hesitate to contact me if you have any further questions. Signed and authenticated by: Pablo Rodriguez [facility] [place] [address] [address]
[2021-07-13] MEDS ORDERED: APIXABAN 5 MG TAB PO SCH (09:00)
[2021-07-13] MEDS: INSULIN ASPART (NovoLOG) 100 UNIT/ML VIAL SQ SCH ×4 (09:39→23:39)
[2021-07-13] MEDS: CHOLECALCIFEROL 125 MCG (5000 IU) TABLET PO SCH (09:42)
[2021-07-13] MEDS: FENOFIBRATE 160 MG TAB PO SCH (09:43)
[2021-07-13 11:34] LABS: Glucose,Whole Blood 99 mg/dL (75-99)
[2021-07-13] MEDS: SPIRONOLACTONE 25 MG TAB PO SCH (11:47)
[2021-07-13] MEDS: FUROSEMIDE 20 MG TAB PO SCH (11:47)
[2021-07-13] MEDS ORDERED: TRANEXAMIC ACID 1,000 MG in SODIUM CHLORIDE 0.9% 100 ML IVPB PRN (12:00)
[2021-07-13] MEDS: AMIODARONE 200 MG TAB PO SCH (12:03)
[2021-07-13] MEDS: PANTOPRAZOLE 40 MG/10 ML VIAL IVP SCH (12:03)
--- NOTE | 2021-07-13 12:39 | ECHOF ---
Referral Reason:LV Function, surgical clearance MEASUREMENTS -------- HEIGHT: 162.6 cm WEIGHT: 83.9 kg BP: 118/76 RVIDd: 3.3 cm (< 3.3) IVSd: 1.2 cm (0.6 - 1.1) LVIDd: 4.8 cm (3.9 - 5.3) LVPWd: 1.4 cm (0.6 - 1.1) IVSs: 1.5 cm LVIDs: 2.8 cm LVPWs: 2.1 cm LA Diam: 3.9 cm (2.7 - 3.8) Ao Diam: 3.2 cm (2.0 - 3.7) AV Cusp: 1.8 cm (1.5 - 2.6) LA Diam: 6.2 cm (2.7 - 3.8) MV EXCURSION: 22.703 mm (> 18.000) MV EF SLOPE: 95 mm/s (70 - 150) EPSS: 1.2 cm MV E Jr: 0.73 m/s MV DecT: 263 ms MV A Jr: 1.13 m/s MV E/A Ratio: 0.65 FINDINGS -------- Sinus rhythm. This was a technically adequate study. The left ventricular size is normal. There is mild concentric left ventricular hypertrophy. Overa ll left ventricular systolic function is normal with, an EF between 55 - 60 %. The right ventricle is mildly enlarged. The left atrial size is normal. The right atrial size is normal. Interatrial and interventricular septum intact. There is no evidence of aortic regurgitation. There is no evidence of aortic stenosis. Mild mitral regurgitation is present. Mild tricuspid regurgitation present. Unable to estimate RVSP due to inadequate TR jet spectral dop pler profile. There is no pulmonic regurgitation present. The aortic root size is normal. IVC Not well visulized. There is no pericardial effusion. CONCLUSIONS -------- 1. The left ventricular size is normal. 2. There is mild concentric left ventricular hypertrophy. 3. Overall left ventricular systolic function is normal with, an EF between 55 - 60 %. 4. The right ventricle is mildly enlarged. 5. Mild mitral regurgitation is present. 6. Mild tricuspid regurgitation present. WARE DRESSER: Nayeli Cao [facility]
--- NOTE | 2021-07-13 12:57 | P.CRDCN ---
History of Present Illness Consult date: 07/13/21 History of present illness: HISTORY OF PRESENT ILLNESS: This is a 75-year-old female with a past medical history significant for nonischemic cardiomyopathy, paroxysmal atrial fibrillation on anticoagulation with Eliquis, hypertension, diabetes, former nicotine dependence, and lung cancer. Patient follows in the office with Dr. Nair. We have been asked to see the patient in consultation for surgical clearance. Patient examined at the bedside. Patient presented to the hospital after suffering a fall at home. The patient is unsure if she lost consciousness. Patient was found to have a right distal femoral shaft fracture and is scheduled for surgery today with orthopedics. She is also Covid positive. The patient denies any chest pain or pressure. She denies shortness of breath. She denies dizziness or lightheadedness. She is laying flat in bed and appears comfortable. Vital signs are stable. EKG reveals sinus mechanism with first-degree AV block. EKG with baseline artifact but appears to have T-wave inversions in V3V5 Chest xray cardiomegaly with bilateral central masslike opacities are stable. Worrisome for neoplasm. Laboratory data: WBC 10.7. Hemoglobin 11.0. Platelet count 186. Sodium 135. Potassium 4.4. BUN 22. Creatinine 0.87. Current home cardiac medications include simvastatin 20 mg at night, fenofibrate 160 mg daily, lisinopril 20 mg at night, spironolactone 12.5 mg daily, metoprolol tartrate 37.5 mg 3 times a day, Lasix 20 mg daily, Eliquis 5 mg twice a day, and amiodarone 200 mg daily Echocardiogram completed revealed ejection fraction 55-60%, right ventricle mildly enlarged, mild mitral regurgitation, mild tricuspid regurgitation REVIEW OF SYSTEMS: At the time of my exam: CONSTITUTIONAL: Denies fever or chills. HEENT: Denies blurred vision, vision changes, or eye pain. Denies hemoptysis CARDIOVASCULAR: Denies chest pain. Denies orthopnea. Denies PND. Denies palpitations RESPIRATORY: Denies shortness of breath. GASTROINTESTINAL: Denies abdominal pain. Denies nausea or vomiting. HEMATOLOGIC: Denies bleeding disorders. GENITOURINARY: Denies any blood in urine. SKIN: Denies pruitis. Denies rash. PHYSICAL EXAM: VITAL SIGNS: Reviewed. GENERAL: Well-developed in no acute distress. HEENT: Head is normocephalic. Pupils are equal, round. Sclerae anicteric. Mucous membranes of the mouth are moist. Neck supple. No JVD or thyromegaly LUNGS: Respirations even and unlabored. Lungs essentially clear to auscultation bilaterally. HEART: Regular rate and rhythm. S1 and S2 heard. ABDOMEN: Soft. Nondistended. Nontender. EXTREMITIES: No clubbing or cyanosis. Peripheral pulses intact. No lower extremity edema NEUROLOGIC: Awake and alert. Oriented x 3. ASSESSMENT: Covid 19 Right distal femoral shaft fracture Paroxysmal atrial fibrillation, on anticoagulation outpatient with [facility] Lung cancer, due to start treatment soon per nursing Hypertension Diabetes Former nicotine dependence History of nonischemic cardiomyopathy, EF 35% in 2019, with recovery of LV function PLAN: Continue current cardiac medications Resume Eliquis postoperatively when okay with orthopedics Patient has no complaints of angina and is clinically not in heart failure There are no absolute contraindications for patient to proceed with surgery today per orthopedics from a cardiac standpoint We will sign off. Please reconsult if needed. Nurse practitioner note has been reviewed by physician. Signing provider agrees with the documented findings, assessment, and plan of care. Past Medical History Past Medical History: Atrial Fibrillation, Cancer, Diabetes Mellitus, Hypertension Additional Past Medical History / Comment(s): LUNG CA. mass left lung Jul 2019, cough, occasional phlegm. History of Any Multi-Drug Resistant Organisms: None Reported Past Surgical History: Back Surgery, Cholecystectomy, Hysterectomy Additional Past Surgical History / Comment(s): Exploratory surgery, lung biopsy Jul 19 2019 Past Anesthesia/Blood Transfusion Reactions: No Reported Reaction Past Psychological History: No Psychological Hx Reported Smoking Status: Former smoker Past Alcohol Use History: Occasional Additional Past Alcohol Use History / Comment(s): STARTED SMOKING AGE 21. Patient states she quit smoking jul 2019 Past Drug Use History: None Reported - Past Family History Mother Family Medical History: Cancer Additional Family Medical History / Comment(s): BRAIN CANCER. Sister(s) Family Medical History: Cancer Additional Family Medical History / Comment(s): BREAST AND PANCREATIC CANCER. Medications and Allergies Home Medications Medication Instructions Recorded Confirmed Type Fenofibrate 160 mg PO DAILY 06/30/19 07/12/21 History metFORMIN HCL [Glucophage] 500 mg PO PC-SUPPER 06/30/19 07/12/21 History Simvastatin [Zocor] 20 mg PO HS 07/13/19 07/12/21 History Apixaban [Eliquis] 5 mg PO BID 30 Days #60 tab 05/29/20 07/12/21 Rx Metoprolol Tartrate [Lopressor] 37.5 mg PO TID 09/21/20 07/12/21 History Amiodarone [Cordarone] 200 mg PO DAILY 07/12/21 07/12/21 History Cholecalciferol [Vitamin D3 (125 125 mcg PO DAILY 07/12/21 07/12/21 History Mcg = 5000 Iu)] Furosemide [Lasix] 20 mg PO DAILY 07/12/21 07/12/21 History HYDROcodone/APAP 7.5-325MG [[place] 1 tab PO Q6HR PRN 07/12/21 07/12/21 History 7.5-325] Spironolactone 12.5 mg PO DAILY 07/12/21 07/12/21 History lisinopriL [Zestril] 20 mg PO HS 07/12/21 07/12/21 History Allergies Allergy/AdvReac Type Severity Reaction Status Date / Time morphine AdvReac Severe Nausea & Verified 07/12/21 17:47 Vomiting cefuroxime [From Ceftin] AdvReac Unknown Nausea Verified 07/12/21 17:47 Sulfa (Sulfonamide AdvReac Unknown Nausea, Verified 07/12/21 17:47 Antibiotics) lightheaded Physical Exam Vitals: Vital Signs Temp Pulse Pulse Resp BP BP Pulse Ox 07/13/21 08:12 97 F L 83 18 118/76 96 07/13/21 08:00 82 15 07/13/21 07:20 99.2 F 110 H 17 165/82 93 L 07/13/21 06:27 98.5 F 91 14 122/68 94 L 07/13/21 02:51 98.5 F 91 14 122/68 94 L 07/12/21 22:45 94 L 07/12/21 21:10 87 18 151/69 98 07/12/21 18:42 75 18 154/64 98 07/12/21 18:07 72 18 162/78 98 07/12/21 17:29 69 18 151/56 94 L 07/12/21 15:19 97.7 F 60 18 168/79 95 Intake and Output 07/12/21 07/13/21 07/13/21 22:59 06:59 14:59 Output Total 300 200 Balance -300 -200 Output: Urine 300 200 Uretheral ([place]) 300 Other: Voiding Method Indwelling Catheter Indwelling Catheter Weight 83.915 kg Results 07/12/21 16:56 07/12/21 16:56 Cardiac Enzymes 07/12/21 07/12/21 Range/Units 16:56 16:56 AST 35 (14-36) U/L Troponin I <0.012 (0.000-0.034) ng/mL Coagulation 07/12/21 Range/Units 16:56 PT 12.6 H (9.0-12.0) sec APTT 22.7 (22.0-30.0) sec CBC 07/12/21 Range/Units 16:56 WBC 10.7 H (3.8-10.6) k/uL RBC 3.94 (3.80-5.40) m/uL Hgb 11.0 L (11.4-16.0) gm/dL Hct 35.7 (34.0-46.0) % Plt Count 186 (150-450) k/uL Comprehensive Metabolic Panel 07/12/21 Range/Units 16:56 Sodium 135 L (137-145) mmol/L Potassium 4.4 (3.5-5.1) mmol/L Chloride 102 (98-107) mmol/L Carbon Dioxide 22 (22-30) mmol/L BUN 22 H (7-17) mg/dL Creatinine 0.87 (0.52-1.04) mg/dL Glucose 172 H (74-99) mg/dL Calcium 8.9 (8.4-10.2) mg/dL AST 35 (14-36) U/L ALT 9 (4-34) U/L Alkaline Phosphatase 45 (38-126) U/L Total Protein 7.3 (6.3-8.2) g/dL Albumin 3.7 (3.5-5.0) g/dL Current Medications Generic Name Dose Route Start Last Admin Trade Name Freq PRN Reason Stop Dose Admin Acetaminophen 650 mg 07/12/21 18:21 Acetaminophen Tab 325 Mg Tab PO Q6HR PRN Mild Pain or Fever > 100.5 Hydrocodone Bitart/Acetaminophen 1 each 07/13/21 07:20 Hydrocodone/Apap 5-325mg 1 Each Tab PO Q6HR PRN Pain Scale 3 to 5 Hydrocodone Bitart/Acetaminophen 2 each 07/13/21 07:20 Hydrocodone/Apap 5-325mg 1 Each Tab PO Q6HR PRN Pain Scale 6 to 10 Amiodarone HCl 200 mg 07/13/21 09:00 07/13/21 12:03 Amiodarone 200 Mg Tab PO 200 mg DAILY ELSIE Administration Atorvastatin Calcium 10 mg 07/13/21 21:00 Atorvastatin 10 Mg Tab PO HS ELSIE Cholecalciferol 125 mcg 07/13/21 09:00 07/13/21 09:42 Cholecalciferol 125 Mcg (5000 Iu) Tablet PO Not Given DAILY ELSIE Cyclobenzaprine HCl 10 mg 07/13/21 07:19 07/13/21 07:37 Cyclobenzaprine 10 Mg Tab PO 10 mg TID PRN Administration Muscle Spasm Diazepam 2 mg 07/12/21 20:08 07/12/21 21:42 Diazepam 2 Mg Tab PO 2 mg TID PRN Administration Spasms Fenofibrate 160 mg 07/13/21 09:00 07/13/21 09:43 Fenofibrate 160 Mg Tab PO Not Given DAILY ELSIE Furosemide 20 mg 07/13/21 09:00 07/13/21 11:47 Furosemide 20 Mg Tab PO Not Given DAILY ELSIE Hydromorphone HCl 1 mg 07/12/21 18:21 07/13/21 12:04 Hydromorphone 1 Mg/Ml 1 Ml Syringe IVP 1 mg Q3HR PRN Administration Severe Pain Sodium Chloride 1,000 mls @ 130 mls/hr 07/12/21 18:30 07/13/21 12:03 Saline 0.9% IV 130 mls/hr .[id number] ELSIE Administration Cefazolin Sodium 2 gm/ Sodium 50 mls @ 100 mls/hr 07/13/21 00:00 07/13/21 12:04 Chloride IVPB 100 mls/hr Q8HR ELSIE Administration Tranexamic Acid 1,000 mg/ 110 mls @ 200 mls/hr 07/13/21 12:00 Sodium Chloride IVPB 07/13/21 23:00 Q2HR PRN Bleeding Protocol Insulin Aspart 0 unit 07/13/21 07:30 07/13/21 09:39 Insulin Aspart (Novolog) 100 Unit/Ml Vial SQ Not Given ACHS ELSIE Protocol Lisinopril 20 mg 07/13/21 21:00 Lisinopril 20 Mg Tab PO HS ELSIE Lorazepam 1 mg 07/13/21 03:59 Lorazepam 2 Mg/Ml Inj IV ONCE PRN Anxiety Metformin HCl 500 mg 07/13/21 18:30 Metformin 500 Mg Tab PO PC-SUPPER ELSIE Metoprolol Tartrate 37.5 mg 07/13/21 09:00 07/13/21 07:37 Metoprolol Tartrate 12.5 Mg Tab PO 37.5 mg TID ELSIE Administration Naloxone HCl 0.2 mg 07/12/21 18:21 Naloxone 0.4 Mg/Ml 1 Ml Vial IV Q2M PRN Opioid Reversal Ondansetron HCl 4 mg 07/12/21 18:21 Ondansetron 4 Mg/2 Ml Vial IVP Q8HR PRN Nausea And Vomiting Pantoprazole Sodium 40 mg 07/13/21 09:00 07/13/21 12:03 Pantoprazole 40 Mg/10 Ml Vial IVP 40 mg DAILY ELSIE Administration Spironolactone 12.5 mg 07/13/21 09:00 07/13/21 11:47 Spironolactone 25 Mg Tab PO Not Given DAILY ELSIE Intake and Output 07/12/21 07/13/21 07/13/21 22:59 06:59 14:59 Output Total 300 200 Balance -300 -200 Output: Urine 300 200 Uretheral ([place]) 300 Other: Voiding Method Indwelling Catheter Indwelling Catheter Weight 83.915 kg 07/12/21 16:56 07/12/21 16:56
[2021-07-13 15:18] LABS: Basophils % (A) 0 %; Eosinophils # (A) 0.1 k/uL (0-0.7); Eosinophils % (A) 3 %; HCT 30.2 % (34.0-46.0); Hypochromasia Marked; Lymphocytes # (A) 0.5 k/uL (1.0-4.8); Lymphocytes % (A) 12 %; MCH 28.2 pg (25.0-35.0); MCHC 30.6 g/dL (31.0-37.0); MCV 92.3 fL (80.0-100.0); Mean Platelet Volume 8.1; Monocytes # (A) 0.4 k/uL (0-1.0); Monocytes % (A) 9 %; Neutrophils # (A) 3.3 k/uL (1.3-7.7); Neutrophils % (A) 74 %; Platelet Count 181 k/uL (150-450); RBC 3.28 m/uL (3.80-5.40); RDW 15.5 % (11.5-15.5); WBC 4.4 k/uL (3.8-10.6)
[2021-07-13 15:22] LABS: HGB 9.2 gm/dL (11.4-16.0)
--- NOTE | 2021-07-13 15:31 | P.CONS ---
History of Present Illness - Reason for Consult Consult date: 07/13/21 Medical management diabetes mellitus Requesting physician: Pablo Friend - Chief Complaint Distal femur fracture - History of Present Illness This is a 75-year-old female with past medical history of lung cancer, atrial fibrillation on Eliquis, former nicotine dependence, diabetes mellitus, hypertension and multiple other medical issues presented to the ER status post fall with right lower extremity pain/unsure if she actually passed out. Details surrounding patient's fall, vague. Reports she is scheduled to start chemotherapy/radiation next week. Brain C-spine CT reported no acute fracture or dislocation in the cervical spine with no acute intracranial hemorrhage or midline shift. Right knee x-ray reported acute displaced comminuted fracture distal diaphysis right femur. Right hip and pelvis x-ray reported no additional acute fracture or dislocation in the pelvis or right hip. Chest x-ray reported cardiomegaly with bilateral central masslike opacities increased-left greater than right, possible neoplasm. Coronavirus PCR positive.Currently requiring 2 L nasal cannula to maintain O2 sats in the 90s. Denies chest pain, palpitations or shortness of breath. Denies lightheadedness dizziness or focal deficits. Vital signs stable. EKG reporting sinus with first-degree AV block ,moderate T- wave abnormality, anterior lateral ischemia the 3 through V6. Troponin negative 1. WBC 10.7, hemoglobin 11, platelets 186, neutrophils 9.9, INR 1.2, sodium 137, potassium 4.4, BUN 22, creatinine 0.87, blood sugars 109-172, magnesium 2, LFTs within normal limits. Review of Systems ROS Statement: Those systems with pertinent positive or pertinent negative responses have been documented in the HPI. ROS Other: All systems not noted in ROS Statement are negative. Past Medical History Past Medical History: Atrial Fibrillation, Cancer, Diabetes Mellitus, Hypertension Additional Past Medical History / Comment(s): LUNG CA. mass left lung Jul 2019, cough, occasional phlegm. History of Any Multi-Drug Resistant Organisms: None Reported Past Surgical History: Back Surgery, Cholecystectomy, Hysterectomy Additional Past Surgical History / Comment(s): Exploratory surgery, lung biopsy Jul 19 2019 Past Anesthesia/Blood Transfusion Reactions: No Reported Reaction Past Psychological History: No Psychological Hx Reported Smoking Status: Former smoker Past Alcohol Use History: Occasional Additional Past Alcohol Use History / Comment(s): STARTED SMOKING AGE 21. Patient states she quit smoking jul 2019 Past Drug Use History: None Reported - Past Family History Mother Family Medical History: Cancer Additional Family Medical History / Comment(s): BRAIN CANCER. Sister(s) Family Medical History: Cancer Additional Family Medical History / Comment(s): BREAST AND PANCREATIC CANCER. Medications and Allergies Home Medications Medication Instructions Recorded Confirmed Type Fenofibrate 160 mg PO DAILY 06/30/19 07/12/21 History metFORMIN HCL [Glucophage] 500 mg PO PC-SUPPER 06/30/19 07/12/21 History Simvastatin [Zocor] 20 mg PO HS 07/13/19 07/12/21 History Apixaban [Eliquis] 5 mg PO BID 30 Days #60 tab 05/29/20 07/12/21 Rx Metoprolol Tartrate [Lopressor] 37.5 mg PO TID 09/21/20 07/12/21 History Amiodarone [Cordarone] 200 mg PO DAILY 07/12/21 07/12/21 History Cholecalciferol [Vitamin D3 (125 125 mcg PO DAILY 07/12/21 07/12/21 History Mcg = 5000 Iu)] Furosemide [Lasix] 20 mg PO DAILY 07/12/21 07/12/21 History HYDROcodone/APAP 7.5-325MG [[place] 1 tab PO Q6HR PRN 07/12/21 07/12/21 History 7.5-325] Spironolactone 12.5 mg PO DAILY 07/12/21 07/12/21 History lisinopriL [Zestril] 20 mg PO HS 07/12/21 07/12/21 History Allergies Allergy/AdvReac Type Severity Reaction Status Date / Time morphine AdvReac Severe Nausea & Verified 07/12/21 17:47 Vomiting cefuroxime [From Ceftin] AdvReac Unknown Nausea Verified 07/12/21 17:47 Sulfa (Sulfonamide AdvReac Unknown Nausea, Verified 07/12/21 17:47 Antibiotics) lightheaded Physical Exam Vitals: Vital Signs Temp Pulse Pulse Resp BP BP Pulse Ox 07/13/21 13:56 98.8 F 58 L 18 124/69 98 07/13/21 08:12 97 F L 83 18 118/76 96 07/13/21 08:00 82 15 07/13/21 07:20 99.2 F 110 H 17 165/82 93 L 07/13/21 06:27 98.5 F 91 14 122/68 94 L 07/13/21 02:51 98.5 F 91 14 122/68 94 L 07/12/21 22:45 94 L 07/12/21 21:10 87 18 151/69 98 07/12/21 18:42 75 18 154/64 98 07/12/21 18:07 72 18 162/78 98 07/12/21 17:29 69 18 151/56 94 L 07/12/21 15:19 97.7 F 60 18 168/79 95 Intake and Output 07/12/21 07/13/21 07/13/21 22:59 06:59 14:59 Intake Total 720 Output Total 300 200 Balance -300 -200 720 Intake: Oral 720 Output: Urine 300 200 Uretheral ([place]) 300 Other: Voiding Method Indwelling Catheter Indwelling Catheter # Voids 2 Weight 83.915 kg - Exam PHYSICAL EXAM: VITAL SIGNS: As above GENERAL: Sitting up in bed, no acute distress HEENT: Conjunctivae normal. eyes normal. NECK: Supple, No JVD. CARDIOVASCULAR: S1, S2 regular.irregular, positive systolic murmur RESPIRATION: Breath sounds diminished in the bases. No rhonchi or crackles. No bronchial breathing. ABDOMEN: Soft, nontender . No guarding. no masses palpable. No ascites, No hepatosplenomegaly.Bowel sounds heard. LEGS: Right lower extremity, shortened and externally rotated, soft, warm, tender ,positive edema, positive PT & DP pulses. PSYCHIATRY: Alert and oriented X3, mood and affect normal. NERVOUS SYSTEM: Cranial N 2-12 grossly normal. No focal deficits. Strength and sensation grossly intact. Skin: Warm and dry, no rash Results CBC & Chem 7: 07/12/21 16:56 07/12/21 16:56 Labs: Abnormal Lab Results - Last 24 Hours (Table) 07/12/21 07/12/21 07/12/21 Range/Units 16:56 16:56 16:56 WBC 10.7 H (3.8-10.6) k/uL Hgb 11.0 L (11.4-16.0) gm/dL MCHC 30.9 L (31.0-37.0) g/dL RDW 16.0 H (11.5-15.5) % Neutrophils # 9.9 H (1.3-7.7) k/uL Lymphocytes # 0.3 L (1.0-4.8) k/uL PT 12.6 H (9.0-12.0) sec INR 1.2 H (<1.2) Sodium 135 L (137-145) mmol/L BUN 22 H (7-17) mg/dL Glucose 172 H (74-99) mg/dL POC Glucose (mg/dL) (75-99) mg/dL Coronavirus (PCR) (Not Detectd) 07/12/21 07/13/21 Range/Units 19:05 06:50 WBC (3.8-10.6) k/uL Hgb (11.4-16.0) gm/dL MCHC (31.0-37.0) g/dL RDW (11.5-15.5) % Neutrophils # (1.3-7.7) k/uL Lymphocytes # (1.0-4.8) k/uL PT (9.0-12.0) sec INR (<1.2) Sodium (137-145) mmol/L BUN (7-17) mg/dL Glucose (74-99) mg/dL POC Glucose (mg/dL) 109 H (75-99) mg/dL Coronavirus (PCR) Detected A (Not Detectd) Assessment and Plan Assessment: Acute displaced comminuted fracture distal diaphysis right femur, status post fall. Lung CA, scheduled to begin chemotherapy/radiation next week Paroxysmal atrial fibrillation with RVR with history of chronic paroxysmal atrial fibrillation, cardioversion Chronic CHF with mildly reduced systolic function, worsening secondary to the above Mild acute renal failure secondary to diuresing Acute hypoxic respiratory failure secondary to the above Diabetes mellitus type 2 Moderate to severe mitral regurgitation Moderate tricuspid regurgitation Hypertension Plan: Continue on current medication regime ,monitoring and symptomatic treatment. Labs pending. Oncology, cardiology consult in place.Orthopedic surgical repair pending. Pain management/anticoagulation as per orthopedic surgery. Home meds have been resumed accordingly. PPI ordered for GI prophylaxis. Agressive pulmonary toileting with incentive spirometer ordered. Thank you Dr. Friend for the consult. The impression and plan of care has been dictated as directed. : I performed a history and examination of this patient, discussed the same with the dictator. I agree with the dictator's note ,documented as a scribe. Any additional findings or plans will be noted.
[2021-07-13 15:35] LABS: ALT 6 U/L (4-34); AST 22 U/L (14-36); African American GFR (CKD) 53 (>60 ml/min/1.73 sqM); Albumin 2.9 g/dL (3.5-5.0); Alkaline Phosphatase 38 U/L (38-126); Anion Gap 4 mmol/L; Blood Urea Nitrogen 28 mg/dL (7-17); Calcium 9.1 mg/dL (8.4-10.2); Carbon Dioxide 27 mmol/L (22-30); Chloride 106 mmol/L (98-107); Glucose 95 mg/dL (74-99); Non-African American GFR(CKD) 46 (>60 ml/min/1.73 sqM); Potassium 4.5 mmol/L (3.5-5.1); Sodium 137 mmol/L (137-145); Total Bilirubin 0.6 mg/dL (0.2-1.3); Total Protein 5.9 g/dL (6.3-8.2)
[2021-07-13] MEDS: ASCORBIC ACID 500 MG TAB PO SCH ×2 (15:56→23:40)
[2021-07-13] MEDS: DEXAMETHASONE SOD PHOSPHATE 10 MG/ML 1 ML VIAL IVP SCH (15:56)
[2021-07-13] MEDS: ZINC SULFATE 220 MG CAP PO SCH (15:57)
--- NOTE | 2021-07-13 16:08 | P.CNPUL ---
History of Present Illness Consult date: 07/13/21 Reason for consult: other Chief complaint: COVID-19 infection History of present illness: This is a 75-year-old female patient with past medical history of small cell carcinoma of the lung, diabetes mellitus type 2, chronic cough, chronic A. fib, hypertension, hypercholesterolemia and patient follows with Dr. Maciel from pulmonary clinic, and Dr. Oseguera from medical oncology in regards to her small cell lung cancer. Patient carries [id number] smoking history which was diagnosed in [address]-guided needle biopsy. Patient underwent radiation therapy and received chemotherapy. Patient received carboplatin, Taxol and Keytruda. Patient continues to see Dr. Gil and she is supposed to see Dr. Oliva from radiation oncology in follow-up sometime next week. Most recent CT of the chest abdomen and pelvis from 07/04/2021 showed disease progression in the anterior left perihilar and mid lung mass, patchy and nodular postobstructive changes in the left upper lobe, progression of the right peritracheal and right supraclavicular lymphadenopathy, a new right midlung pulmonary nodule which was suspicious. Left obturator bakery helper and right gluteus juliet soft tissue metastasis and a worsening right perihilar and right lower lobe consolidation. On 07/12/2021 patient was brought into the hospital by EMS with right lower extremity pain after a fall. Patient states she fell backwards on her back. She does not remember falling. Denied any loss of consciousness or head injury. She did have significant right lower extremity pain. Patient is on anticoagulation for chronic atrial fibrillation. In the ER she was noted to have a shortened right lower extremity. X-ray of the right hip and pelvis showed no acute fracture or dislocation in the pelvis, did not right distal femoral shaft fracture, closed, needed and displaced. Chest x-ray showed cardiomegaly with bilateral central masslike opacities that are stable but worrisome for neoplasm. Patient with tested for COVID-19 as part of routine screening and was found to be positive, she denies any shortness of breath, cough, no fever or chills. This was an incidental finding, she is vaccinated with [employer] P[employer] vaccine and blistered with the same vaccine. She is on 2 L of oxygen pulse ox of 90%, she's been afebrile while in the hospital, she is hemodynamically stable, she has been scheduled for surgery for repair of the right femoral fracture by Dr. Friend today on 07/13/2021 Review of Systems All systems: negative Constitutional: Denies chills, Denies fever Eyes: denies blurred vision, denies pain Ears, nose, mouth and throat: Denies headache, Denies sore throat Cardiovascular: Denies chest pain, Denies shortness of breath Respiratory: Denies cough Gastrointestinal: Denies abdominal pain, Denies diarrhea, Denies nausea, Denies vomiting Genitourinary: Denies dysuria, Denies hematuria Musculoskeletal: Denies myalgias Musculoskeletal: right: hip pain Integumentary: Denies pruritus, Denies rash Neurological: Denies numbness, Denies weakness Psychiatric: Denies anxiety, Denies depression Endocrine: Denies fatigue, Denies weight change Past Medical History Past Medical History: Atrial Fibrillation, Cancer, Diabetes Mellitus, Hypertension Additional Past Medical History / Comment(s): LUNG CA. mass left lung Jul 2019, cough, occasional phlegm. History of Any Multi-Drug Resistant Organisms: None Reported Past Surgical History: Back Surgery, Cholecystectomy, Hysterectomy Additional Past Surgical History / Comment(s): Exploratory surgery, lung biopsy Jul 19 2019 Past Anesthesia/Blood Transfusion Reactions: No Reported Reaction Past Psychological History: No Psychological Hx Reported Smoking Status: Former smoker Past Alcohol Use History: Occasional Additional Past Alcohol Use History / Comment(s): STARTED SMOKING AGE 21. Patient states she quit smoking jul 2019 Past Drug Use History: None Reported - Past Family History Mother Family Medical History: Cancer Additional Family Medical History / Comment(s): BRAIN CANCER. Sister(s) Family Medical History: Cancer Additional Family Medical History / Comment(s): BREAST AND PANCREATIC CANCER. Medications and Allergies Home Medications Medication Instructions Recorded Confirmed Type Fenofibrate 160 mg PO DAILY 06/30/19 07/12/21 History metFORMIN HCL [Glucophage] 500 mg PO PC-SUPPER 06/30/19 07/12/21 History Simvastatin [Zocor] 20 mg PO HS 07/13/19 07/12/21 History Apixaban [Eliquis] 5 mg PO BID 30 Days #60 tab 05/29/20 07/12/21 Rx Metoprolol Tartrate [Lopressor] 37.5 mg PO TID 09/21/20 07/12/21 History Amiodarone [Cordarone] 200 mg PO DAILY 07/12/21 07/12/21 History Cholecalciferol [Vitamin D3 (125 125 mcg PO DAILY 07/12/21 07/12/21 History Mcg = 5000 Iu)] Furosemide [Lasix] 20 mg PO DAILY 07/12/21 07/12/21 History HYDROcodone/APAP 7.5-325MG [[place] 1 tab PO Q6HR PRN 07/12/21 07/12/21 History 7.5-325] Spironolactone 12.5 mg PO DAILY 07/12/21 07/12/21 History lisinopriL [Zestril] 20 mg PO HS 07/12/21 07/12/21 History Allergies Allergy/AdvReac Type Severity Reaction Status Date / Time morphine AdvReac Severe Nausea & Verified 07/12/21 17:47 Vomiting cefuroxime [From Ceftin] AdvReac Unknown Nausea Verified 07/12/21 17:47 Sulfa (Sulfonamide AdvReac Unknown Nausea, Verified 07/12/21 17:47 Antibiotics) lightheaded Physical Exam Vitals: Vital Signs Temp Pulse Pulse Resp BP BP Pulse Ox 07/13/21 13:56 98.8 F 58 L 18 124/69 98 07/13/21 08:12 97 F L 83 18 118/76 96 07/13/21 08:00 82 15 07/13/21 07:20 99.2 F 110 H 17 165/82 93 L 07/13/21 06:27 98.5 F 91 14 122/68 94 L 07/13/21 02:51 98.5 F 91 14 122/68 94 L 07/12/21 22:45 94 L 07/12/21 21:10 87 18 151/69 98 07/12/21 18:42 75 18 154/64 98 07/12/21 18:07 72 18 162/78 98 07/12/21 17:29 69 18 151/56 94 L Intake and Output 07/13/21 07/13/21 07/13/21 06:59 14:59 22:59 Intake Total 720 Output Total 200 Balance -200 720 Intake: Oral 720 Output: Urine 200 Other: Voiding Method Indwelling Catheter # Voids 2 GENERAL EXAM: Alert, very pleasant, 75-year-old white female, on 2 L of oxygen and pulse ox of 98%, comfortable in no apparent distress. HEAD: Normocephalic/atraumatic. EYES: Normal reaction of pupils, equal size. Conjunctiva pink, sclera white. NOSE: Clear with pink turbinates. THROAT: No erythema or exudates. NECK: No masses, no JVD, no thyroid enlargement, no adenopathy. CHEST: No chest wall deformity. Symmetrical expansion. LUNGS: Equal air entry with no crackles, wheeze, rhonchi or dullness. CVS: Irregular rate and rhythm, normal S1 and S2, no gallops, no murmurs, no rubs ABDOMEN: Soft, nontender. No hepatosplenomegaly, normal bowel sounds, no guarding or rigidity. EXTREMITIES: No clubbing, no edema, no cyanosis, 2+ pulses and upper and lower extremities. Right leg is shortened it's in the traction, painful the hip MUSCULOSKELETAL: Muscle strength and tone normal. SPINE: No scoliosis or deformity SKIN: No rashes CENTRAL NERVOUS SYSTEM: Alert and oriented -3. No focal deficits, tone is normal in all 4 extremities. PSYCHIATRIC: Alert and oriented -3. Appropriate affect. Intact judgment and insight. Results - Laboratory Findings CBC and BMP: 07/13/21 15:04 07/13/21 15:04 PT/INR, D-dimer PT 12.6 sec (9.0-12.0) H 07/12/21 16:56 INR 1.2 (<1.2) H 07/12/21 16:56 Abnormal lab findings: Abnormal Labs 07/12/21 07/12/21 07/12/21 16:56 16:56 16:56 WBC 10.7 H RBC Hgb 11.0 L Hct MCHC 30.9 L RDW 16.0 H Neutrophils # 9.9 H Lymphocytes # 0.3 L PT 12.6 H INR 1.2 H Sodium 135 L BUN 22 H Creatinine Glucose 172 H POC Glucose (mg/dL) Total Protein Albumin Coronavirus (PCR) 07/12/21 07/13/21 07/13/21 19:05 06:50 15:04 WBC RBC 3.28 L Hgb 9.2 L D Hct 30.2 L MCHC 30.6 L RDW Neutrophils # Lymphocytes # 0.5 L PT INR Sodium BUN Creatinine Glucose POC Glucose (mg/dL) 109 H Total Protein Albumin Coronavirus (PCR) Detected A 07/13/21 15:04 WBC RBC Hgb Hct MCHC RDW Neutrophils # Lymphocytes # PT INR Sodium BUN 28 H Creatinine 1.18 H Glucose POC Glucose (mg/dL) Total Protein 5.9 L Albumin 2.9 L Coronavirus (PCR) - Diagnostic Findings Comments: CT of the head and cervical spine, EKG, hip and pelvis x-ray, chest x-ray, echocardiogram reviewed Chest x-ray: report reviewed, image reviewed Assessment and Plan Plan: Assessment: #1. Acute COVID-19 infection, an incidental finding, patient is asymptomatic and this was discovered as part of routine screening process. The length of COVID-19 infection is unknown, patient is currently on 2 L of oxygen, she is on Decadron 6 mg daily, she is not a candidate for Remdesivir due to unknown length of Time of her infection #2. Acute right femoral comminuted and displaced fracture related to a fall, pending surgical repair today on 07/13/2021 #3. History of small cell carcinoma of the lung, initially diagnosed in 2019, status post chemotherapy, radiation, and immunotherapy, with most recent CT scan of the chest abdomen and pelvis showing evidence of disease progression. Patient follows with Dr. Gil and Dr. Oliva #4. History of nonischemic cardiomyopathy with EF of 35% #5. History of paroxysmal atrial fibrillation on Eliquis #6. Hypertension #7. Diabetes mellitus #8. Former nicotine dependence Plan: Continue without Decadron, Titrate FiO2 to keep O2 sat saturations at or above 90% Chest x-ray reviewed Patient was not symptomatic of COVID-19, this was an incidental finding Patient is not a candidate for Remdesivir due to unknown length of infection We'll continue supportive treatment Patient is going to surgery this afternoon Anticoagulation after surgery is per orthopedic surgery We'll continue to follow I performed a history & physical examination of the patient and discussed their management with my nurse practitioner, Emily Avila. I reviewed the nurse practitioner's note and agree with the documented findings and plan of care. Lung sounds are positive for diffuse wheezes throughout the lung zamora. The findings and the impression was discussed with the patient. I attest to the do cumentation by the nurse practitioner. Time with Patient: Greater than 30
[2021-07-13 16:31] LABS: Glucose,Whole Blood 81 mg/dL (75-99)
[2021-07-13] MEDS: metFORMIN 500 MG TAB PO SCH (19:05)
[2021-07-13] MEDS ORDERED: LACTATED RINGERS 1,000 ML IV ONE ×2 (19:39→22:09)
[2021-07-13] MEDS ORDERED: NEOSTIGMINE 1 MG/ML 10 ML VIAL ONE (20:01)
[2021-07-13] MEDS ORDERED: TRANEXAMIC ACID 1,000 MG/10 ML VIAL ONE (20:01)
[2021-07-13] MEDS ORDERED: fentaNYL (PF) 50 MCG/ML 2 ML AMP ONE (20:01)
[2021-07-13] MEDS ORDERED: SUCCINYLCHOLINE CHLORIDE 100 MG/5 ML SYR IV ONE (20:01)
[2021-07-13] MEDS ORDERED: ROCURONIUM 10 MG/ML (5 ML VIAL) IV ONE (20:01)
[2021-07-13] MEDS ORDERED: LIDOCAINE 1% INJ 10MG/ML (20 ML MDV) ONE (20:01)
[2021-07-13] MEDS ORDERED: ONDANSETRON 4 MG/2 ML VIAL ONE (20:01)
[2021-07-13] MEDS ORDERED: GLYCOPYRROLATE 0.2 MG/ML 2 ML VIAL ONE (20:01)
[2021-07-13] MEDS ORDERED: SODIUM CHLORIDE 0.9% 100 ML BAG ONE (20:01)
[2021-07-13] MEDS ORDERED: PROPOFOL 10 MG/ML 20 ML VIAL IV ONE (20:01)
[2021-07-13] MEDS ORDERED: HYDROmorphone (PF) 1 MG/ML ONE (20:01)
[2021-07-13] MEDS ORDERED: SODIUM CHLORIDE 0.9% 100 ML with ceFAZolin 2,000 MG IV ONE ×2 (20:15)
--- NOTE | 2021-07-13 20:33 | P.CONS ---
History of Present Illness - Reason for Consult Consult date: 07/13/21 pt with current lung ca, pt admitted with right femur fracture, sx today Requesting physician: Francisco Ramirez - Chief Complaint Fractured Femur - History of Present Illness This is a very nice lady who presenetd with cold symptoms and cough,started around May/2019,she had a CXR which revealed RLL lesion,CT scan of chest done on 06/09/2019 showed 2.7cm lesion in RUL,1.6cm right hilar node and focal patchy opacity in MELISA and 1.2cm indeterminate nodule of right adrenal gland. On 06/25/2019,PET scan showed significant uptake in RLL lesion,SUV of 9,uptake in right hilar node,SUV of 2.6 and SUV of 2.0 in MELISA nodular density,negative upate in right adrenal gland,otherwise negative PET/scan. On 07/02/2019,she underwent a bronchoscopy was was not diagnostic. On 07/28/2019,CT guided biopsy of RLL lesion was positive for small cell lung cancer. On 08/07/2019,brain MRI was negative for metastatic disease. On 08/18/2019,she had EBUS and staging of mediastinum,pathology was negative,the small left lung lesion at that time could not be biopsied. 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 On 02/22/[address] scan of chest revealed improvement in her right lung disease,however,there was increasing consolidation in MELISA. On 03/10/2020,repeat PET scan revealed significant improvemet in RLL disease,however,there is progression in MELISA lesion along with suspicious left hilar and subcarinal nodes. On 04/25/2020,EBUS and FNA of station 7 was positive for squamous cell carcinoma.PDL-1 could not be done. On 05/15/2020,repeat CT scan of chest/abdomen/pelvis revealed progression of her disease in the chest. On 06/13/2020,she started carboplatin/taxol/keytruda On 07/18/2020,repeat CT scan of chest revealed improvement in her disease. She completed 4 cycles of carbo/taxol/keytruda on 08/22/2020. She continues with keytruda every 3 weeks. On 09/18/2020 CT scan of chest/abdomen/pevis was negative for disease recurrence She was admitted to [facility] on 09/21/2020 and acute back pain,had CT scan of abdomen/pelvis on 09/21/2020 which was unremarkable,she also had MRCP which revealed slightly dilated bile duct,her CMP was unremarkable. MRI of T spine on 10/04/2020 revealed herniated disc at T12-L1. On 01/16/2021,repeat CT scan of chest/abdomen/pelvis revealed increasing consolidative changes in both lungs On 01/23/2021,keytruda was held due to possible pneumonitis . On 02/23/2021,repeat PET scan revealed worsening disease in left lung,mediastinal nodes and right supraclavicular node and keytruda was discontinued. On 03/15/2021,she started gemzar. On 04/30/2021,CT scan of chest/abdomen/pelvis revealed stable disease. On 07/04/2021,repeat CT scan of chest/abdomen/pelvis revealed evidence of disease progression. She was last seen and evaluated by Dr. Gil this Friday on 07/11/21. At that time She feels tired,she progressive pain in righ buttock,likely from right gluteous muscle metastatic deposit,her dyspnea is stable,no more nausea or vomiting. Per his charting he wrote In regard to right gluteal muscle pain,will refer palliative XRT,her pain is 6-7/10,will add norco as needed to help her pain,she has been taking extra strenght tylenol without much benefit. I reviewed the CT scan finding with the patient and her . She is still interested in pursuing active therapy. I will arrnage for U/S guided biopsy of right supra clavicular node to determine if there is progression of her small cell or squamous cell lung cancer She now presents to emergency after fall resulting in fracture of right femur. Review of Systems All systems: negative Constitutional: Reports as per HPI Past Medical History Past Medical History: Atrial Fibrillation, Cancer, Diabetes Mellitus, Hypertension Additional Past Medical History / Comment(s): LUNG CA. mass left lung Jul 2019, cough, occasional phlegm. History of Any Multi-Drug Resistant Organisms: None Reported Past Surgical History: Back Surgery, Cholecystectomy, Hysterectomy Additional Past Surgical History / Comment(s): Exploratory surgery, lung biopsy Jul 19 2019 Past Anesthesia/Blood Transfusion Reactions: No Reported Reaction Past Psychological History: No Psychological Hx Reported Smoking Status: Former smoker Past Alcohol Use History: Occasional Additional Past Alcohol Use History / Comment(s): STARTED SMOKING AGE 21. Patient states she quit smoking jul 2019 Past Drug Use History: None Reported - Past Family History Mother Family Medical History: Cancer Additional Family Medical History / Comment(s): BRAIN CANCER. Sister(s) Family Medical History: Cancer Additional Family Medical History / Comment(s): BREAST AND PANCREATIC CANCER. Medications and Allergies Home Medications Medication Instructions Recorded Confirmed Type Fenofibrate 160 mg PO DAILY 06/30/19 07/12/21 History metFORMIN HCL [Glucophage] 500 mg PO PC-SUPPER 06/30/19 07/12/21 History Simvastatin [Zocor] 20 mg PO HS 07/13/19 07/12/21 History Apixaban [Eliquis] 5 mg PO BID 30 Days #60 tab 05/29/20 07/12/21 Rx Metoprolol Tartrate [Lopressor] 37.5 mg PO TID 09/21/20 07/12/21 History Amiodarone [Cordarone] 200 mg PO DAILY 07/12/21 07/12/21 History Cholecalciferol [Vitamin D3 (125 125 mcg PO DAILY 07/12/21 07/12/21 History Mcg = 5000 Iu)] Furosemide [Lasix] 20 mg PO DAILY 07/12/21 07/12/21 History HYDROcodone/APAP 7.5-325MG [[place] 1 tab PO Q6HR PRN 07/12/21 07/12/21 History 7.5-325] Spironolactone 12.5 mg PO DAILY 07/12/21 07/12/21 History lisinopriL [Zestril] 20 mg PO HS 07/12/21 07/12/21 History Allergies Allergy/AdvReac Type Severity Reaction Status Date / Time morphine AdvReac Severe Nausea & Verified 07/12/21 17:47 Vomiting cefuroxime [From Ceftin] AdvReac Unknown Nausea Verified 07/12/21 17:47 Sulfa (Sulfonamide AdvReac Unknown Nausea, Verified 07/12/21 17:47 Antibiotics) lightheaded Physical Exam Vitals: Vital Signs Temp Pulse Pulse Resp BP BP Pulse Ox 07/13/21 08:12 97 F L 83 18 118/76 96 07/13/21 08:00 82 15 07/13/21 07:20 99.2 F 110 H 17 165/82 93 L 07/13/21 06:27 98.5 F 91 14 122/68 94 L 07/13/21 02:51 98.5 F 91 14 122/68 94 L 07/12/21 22:45 94 L 07/12/21 21:10 87 18 151/69 98 07/12/21 18:42 75 18 154/64 98 07/12/21 18:07 72 18 162/78 98 07/12/21 17:29 69 18 151/56 94 L 07/12/21 15:19 97.7 F 60 18 168/79 95 Intake and Output 07/12/21 07/13/21 07/13/21 22:59 06:59 14:59 Output Total 300 200 Balance -300 -200 Output: Urine 300 200 Uretheral (Collado) 300 Other: Voiding Method Indwelling Catheter Indwelling Catheter Weight 83.915 kg - Constitutional General appearance: cooperative, mild distress - EENT Eyes: EOMI ENT: NA/AT - Neck Neck: normal ROM - Respiratory Respiratory: bilateral: diminished - Cardiovascular Rhythm: regularly irregular leg Peripheral Edema: right: Other (Status post surgical intervention) - Gastrointestinal General gastrointestinal: normal bowel sounds, soft - Integumentary Integumentary: pale - Neurologic non focal - Psychiatric Psychiatric: A&O x's 3 Results CBC & Chem 7: 07/13/21 15:04 07/13/21 15:04 Labs: Abnormal Lab Results - Last 24 Hours (Table) 07/12/21 07/12/21 07/12/21 Range/Units 16:56 16:56 16:56 WBC 10.7 H (3.8-10.6) k/uL Hgb 11.0 L (11.4-16.0) gm/dL MCHC 30.9 L (31.0-37.0) g/dL RDW 16.0 H (11.5-15.5) % Neutrophils # 9.9 H (1.3-7.7) k/uL Lymphocytes # 0.3 L (1.0-4.8) k/uL PT 12.6 H (9.0-12.0) sec INR 1.2 H (<1.2) Sodium 135 L (137-145) mmol/L BUN 22 H (7-17) mg/dL Glucose 172 H (74-99) mg/dL POC Glucose (mg/dL) (75-99) mg/dL Coronavirus (PCR) (Not Detectd) 07/12/21 07/13/21 Range/Units 19:05 06:50 WBC (3.8-10.6) k/uL Hgb (11.4-16.0) gm/dL MCHC (31.0-37.0) g/dL RDW (11.5-15.5) % Neutrophils # (1.3-7.7) k/uL Lymphocytes # (1.0-4.8) k/uL PT (9.0-12.0) sec INR (<1.2) Sodium (137-145) mmol/L BUN (7-17) mg/dL Glucose (74-99) mg/dL POC Glucose (mg/dL) 109 H (75-99) mg/dL Coronavirus (PCR) Detected A (Not Detectd) Assessment and Plan (1) Fall Current Visit: Yes Status: Acute Code(s): W19.XXXA - UNSPECIFIED FALL, INITIAL ENCOUNTER SNOMED Code(s): 2660385 (2) Femur fracture Narrative/Plan: Review of previous imaging does not appear pathologic although post operative pathology can be further assessed Ok for femur repair with orthopedic surgery, planned for 07/14/21 Current Visit: Yes Status: Acute Code(s): S72.90XA - UNSP FRACTURE OF UNSP FEMUR, INIT ENCNTR FOR CLOSED FRACTURE SNOMED Code(s): 19689282 (3) Atrial fibrillation with RVR Current Visit: No Status: Acute Code(s): I48.91 - UNSPECIFIED ATRIAL FIBRILLATION SNOMED Code(s): 581791983924524 (4) Squamous cell lung cancer Narrative/Plan: Per HPI Last treatment Gemzar ending in May 2021 Appears to have had recent progression, in review of PET no evidence of metastatic osseous lesions. Current Visit: No Status: Acute Priority: High Code(s): C34.90 - MALIGNANT NEOPLASM OF UNSP PART OF UNSP BRONCHUS OR LUNG SNOMED Code(s): 398786181 (5) Small cell lung cancer Current Visit: No Status: Chronic Priority: Medium Code(s): C34.90 - MALIGNANT NEOPLASM OF UNSP PART OF UNSP BRONCHUS OR LUNG SNOMED Code(s): 128134974 (6) COVID-19 Current Visit: Yes Status: Acute Code(s): U07.1 - COVID-19 SNOMED Code(s): 953400365 Plan: Physician Attest: I have completed the full history and physical and agree with above dictation, dictated as a scribe
[2021-07-13] MEDS: ATORVASTATIN 10 MG TAB PO SCH (23:40)
[2021-07-13] MEDS: lisinopriL 20 MG TAB PO SCH (23:56)
--- NOTE | 2021-07-14 00:24 | XR ---
EXAMINATION TYPE: XR femur RT DATE OF EXAM: 07/13/2021 COMPARISON: NONE HISTORY: Surgery TECHNIQUE: 15 use fluoroscopic. FINDINGS: There was 3 minutes and 32 seconds of fluoroscopy time recorded. A series of multiple fluor oscopic images show placement of intramedullary too and transverse screws fixating the fracture of th e distal shaft of the femur in anatomic position. IMPRESSION: Satisfactory internal fixation. No complicating process seen.
[2021-07-14] MEDS: HYDROmorphone 1 MG/ML 1 ML SYRINGE IVP PRN ×2 (02:30→04:32)
[2021-07-14 07:16] LABS: Glucose,Whole Blood 104 mg/dL (75-99)
[2021-07-14] MEDS: SODIUM CHLORIDE 0.9% 1,000 ML IV SCH ×3 (07:30→17:20)
[2021-07-14] MEDS: INSULIN ASPART (NovoLOG) 100 UNIT/ML VIAL SQ SCH ×4 (07:31→21:41)
[2021-07-14] MEDS: ZINC SULFATE 220 MG CAP PO SCH (08:06)
[2021-07-14] MEDS: FENOFIBRATE 160 MG TAB PO SCH (08:06)
[2021-07-14] MEDS: HYDROcodone/APAP 5-325MG 1 EACH TAB PO PRN ×3 (08:06→21:41)
[2021-07-14] MEDS: FUROSEMIDE 20 MG TAB PO SCH (08:06)
[2021-07-14] MEDS: AMIODARONE 200 MG TAB PO SCH (08:06)
[2021-07-14] MEDS: CHOLECALCIFEROL 125 MCG (5000 IU) TABLET PO SCH (08:07)
[2021-07-14] MEDS: DEXAMETHASONE SOD PHOSPHATE 10 MG/ML 1 ML VIAL IVP SCH (08:07)
[2021-07-14] MEDS: ASCORBIC ACID 500 MG TAB PO SCH ×2 (08:07→21:41)
[2021-07-14] MEDS: SPIRONOLACTONE 25 MG TAB PO SCH (08:07)
[2021-07-14] MEDS: PANTOPRAZOLE 40 MG/10 ML VIAL IVP SCH (08:07)
[2021-07-14] MEDS: METOPROLOL TARTRATE 12.5 MG TAB PO SCH ×3 (08:07→22:06)
[2021-07-14 11:19] LABS: Glucose,Whole Blood 181 mg/dL (75-99)
--- NOTE | 2021-07-14 11:27 | P.PN ---
Subjective Progress Note Date: 07/14/21 Principal diagnosis: Right distal femoral shaft fracture Patient was seen at bedside this morning resting sitting up in chair. Patient says she did get up with assistance this morning and moved to the chair. Patient says she is in a moderate amount of pain in her right leg. Patient mentions she would like to use her knee immobilizer. Patient says she did fill little bit unsteady when she got up. Patient denies chest pain, fever, shortness of breath, nausea, vomiting, change in vision, loss of bowel/bladder control. Objective - Vital Signs Vital signs: Vital Signs Temp 98.1 F 07/14/21 09:45 Pulse 81 07/14/21 09:45 Resp 19 07/14/21 09:45 BP 134/73 07/14/21 09:45 Pulse Ox 97 07/14/21 09:45 Intake & Output 07/13/21 07/14/21 07/14/21 18:59 06:59 18:59 Intake Total 720 1400 180 Output Total 650 1100 Balance 70 300 180 Intake: IV 1400 Oral 720 180 Output: Urine 650 900 Uretheral (Collado) 650 Estimated Blood Loss 200 Other: Voiding Method Indwelling Catheter Indwelling Catheter Indwelling Catheter # Voids 2 - Exam Deniz bandage is present over the right leg. Adaptic, 4 x 4's, ABDs and cast padding is present beneath the Deniz bandage. At this time will keep on the bandages and Deniz wrap to help compress the knee and limit some of the postoperative swelling. Moderate TTP just proximal to the right knee along the fracture site. Nontender to palpation throughout rest exam. Sensation is equal, symmetric, bilateral intact throughout the lower extremities. Neurovascular status intact. DP pulses intact bilaterally. Feet are lukewarm to touch. Patient is able to fully dorsi and plantarflex the right ankle and wiggle toes in the right foot. Patient is unable flex right knee or right hip as time. 3+/5 resisted right ankle dorsi/plantar flexion. 2+/5 in resisted right knee flexion/extension right hip flexion/extension. Negative Homans bilaterally - Labs CBC & Chem 7: 07/13/21 15:04 07/13/21 15:04 Labs: Abnormal Lab Results - Last 24 Hours (Table) 02/11/22 02/11/22 02/12/22 Range/Units 15:04 15:04 07:14 RBC 3.28 L (3.80-5.40) m/uL Hgb 9.2 L D (11.4-16.0) gm/dL Hct 30.2 L (34.0-46.0) % MCHC 30.6 L (31.0-37.0) g/dL Lymphocytes # 0.5 L (1.0-4.8) k/uL BUN 28 H (7-17) mg/dL Creatinine 1.18 H (0.52-1.04) mg/dL POC Glucose (mg/dL) 104 H (75-99) mg/dL Total Protein 5.9 L (6.3-8.2) g/dL Albumin 2.9 L (3.5-5.0) g/dL Assessment and Plan Assessment: Right distal femoral shaft fracture Postoperative day #1 status post retrograde intramedullary femoral nail fixation Plan: 1. Right distal femoral shaft fracture - surgery performed yesterday, 07/13/2021 - retrograde intramedullary femoral nail fixation. Patient stable at bedside this morning. Recommend use of knee immobilizer when patient is ambulating. 50% weightbearing with a walker and assistance on right leg. While in bed, we do encourage patient to flex and extend at the right leg to limit stiffness. We'll continue follow patient while in hospital. 2. Appreciate medical, cardiology and pulmonology management 3. Pain management - [place]; Tylenol; Flexeril 4. GI prophylaxis - Protonix 5. DVT prophylaxis - patient may resume blood thinners 6. PT/OT - 50% weightbearing right leg with walker and assistance. Recommend use of knee immobilizer while ambulating. Weightbearing as tolerated other extremities 7. Encourage incentive spirometer use Time with Patient: Less than 30
--- NOTE | 2021-07-14 11:37 | P.PN ---
Subjective Progress Note Date: 07/14/21 This is a 75-year-old female patient with past medical history of small cell carcinoma of the lung, diabetes mellitus type 2, chronic cough, chronic A. fib, hypertension, hypercholesterolemia and patient follows with Dr. Maciel from pulmonary clinic, and Dr. Oseguera from medical oncology in regards to her small cell lung cancer. Patient carries [id number] smoking history which was diagnosed in [address]-guided needle biopsy. Patient underwent radiation therapy and received chemotherapy. Patient received carboplatin, Taxol and Keytruda. Patient continues to see Dr. Gil and she is supposed to see Dr. Oliva from radiation oncology in follow-up sometime next week. Most recent CT of the chest abdomen and pelvis from 07/04/2021 showed disease progression in the anterior left perihilar and mid lung mass, patchy and nodular postobstructive changes in the left upper lobe, progression of the right peritracheal and right supraclavicular lymphadenopathy, a new right midlung pulmonary nodule which was suspicious. Left obturator night club manager and right gluteus juliet soft tissue metastasis and a worsening right perihilar and right lower lobe consolidation. On 07/12/2021 patient was brought into the hospital by EMS with right lower extremity pain after a fall. Patient states she fell backwards on her back. She does not remember falling. Denied any loss of consciousness or head injury. She did have significant right lower extremity pain. Patient is on anticoagulation for chronic atrial fibrillation. In the ER she was noted to have a shortened right lower extremity. X-ray of the right hip and pelvis showed no acute fracture or dislocation in the pelvis, did not right distal femoral shaft fracture, closed, needed and displaced. Chest x-ray showed cardiomegaly with bilateral central masslike opacities that are stable but worrisome for neoplasm. Patient with tested for COVID-19 as part of routine screening and was found to be positive, she denies any shortness of breath, cough, no fever or chills. This was an incidental finding, she is vaccinated with Pj & Pj vaccine and blistered with the same vaccine. She is on 2 L of oxygen pulse ox of 90%, she's been afebrile while in the hospital, she is hemodynamically stable, she has been scheduled for surgery for repair of the right femoral fracture by Dr. Friend today on 07/13/2021 The patient is seen today 07/14/2021 in follow-up on the regular medical floor. She did undergo repair of her right femur fracture last evening. Follow-up x- ray revealed placement of intramedullary too and transverse screws fixating the fracture of the distal shaft of the femur with satisfactory internal fixation. No complicating process seen. She is currently resting comfortably in bed. Awake and alert in no acute distress. She is maintaining good O2 saturations in the mid 90s on 2 L/m per nasal cannula. Afebrile. Hemodynamically stable. She is continued on cefazolin. She is continued on Decadron, vitamin supplements. Pain is well controlled with Dilaudid. Objective - Vital Signs Vital signs: Vital Signs Temp 98.1 F 07/14/21 09:45 Pulse 81 07/14/21 09:45 Resp 19 07/14/21 09:45 BP 134/73 07/14/21 09:45 Pulse Ox 97 07/14/21 09:45 Intake & Output 07/13/21 07/14/21 07/14/21 18:59 06:59 18:59 Intake Total 720 1400 180 Output Total 650 1100 Balance 70 300 180 Intake: IV 1400 Oral 720 180 Output: Urine 650 900 Uretheral (Collado) 650 Estimated Blood Loss 200 Other: Voiding Method Indwelling Catheter Indwelling Catheter Indwelling Catheter # Voids 2 - Exam GENERAL EXAM: Alert, very pleasant 75-year-old female patient, on 2 L nasal cannula, comfortable in no apparent distress. HEAD: Normocephalic. EYES: Normal reaction of pupils, equal size. NOSE: Clear with pink turbinates. THROAT: No erythema or exudates. NECK: No masses, no JVD. CHEST: No chest wall deformity. LUNGS: Equal air entry with few scattered rhonchi. CVS: S1 and S2 normal with no audible murmur, regular rhythm. ABDOMEN: No hepatosplenomegaly, normal bowel sounds, no guarding or rigidity. SPINE: No scoliosis or deformity SKIN: No rashes CENTRAL NERVOUS SYSTEM: No focal deficits, tone is normal in all 4 extremities. EXTREMITIES: Right lower extremity with Deniz wrap. Ice packs applied. There is no peripheral edema. No clubbing, no cyanosis. Peripheral pulses are intact. - Labs CBC & Chem 7: 07/13/21 15:04 07/13/21 15:04 Labs: Abnormal Lab Results - Last 24 Hours (Table) 07/13/21 07/13/21 07/14/21 Range/Units 15:04 15:04 07:14 RBC 3.28 L (3.80-5.40) m/uL Hgb 9.2 L D (11.4-16.0) gm/dL Hct 30.2 L (34.0-46.0) % MCHC 30.6 L (31.0-37.0) g/dL Lymphocytes # 0.5 L (1.0-4.8) k/uL BUN 28 H (7-17) mg/dL Creatinine 1.18 H (0.52-1.04) mg/dL POC Glucose (mg/dL) 104 H (75-99) mg/dL Total Protein 5.9 L (6.3-8.2) g/dL Albumin 2.9 L (3.5-5.0) g/dL 07/14/21 Range/Units 11:17 RBC (3.80-5.40) m/uL Hgb (11.4-16.0) gm/dL Hct (34.0-46.0) % MCHC (31.0-37.0) g/dL Lymphocytes # (1.0-4.8) k/uL BUN (7-17) mg/dL Creatinine (0.52-1.04) mg/dL POC Glucose (mg/dL) 181 H (75-99) mg/dL Total Protein (6.3-8.2) g/dL Albumin (3.5-5.0) g/dL Assessment and Plan Assessment: 1 Acute COVID-19 infection, an incidental finding, patient is asymptomatic and this was discovered as part of routine screening process. The length of COVID- 19 infection is unknown, not a candidate for Remdesivir, currently on 2 L of oxygen, she is on Decadron 6 mg daily 2 Acute right femoral comminuted and displaced fracture related to a fall, surgically repaired on 07/13/2021. Follow-up x-ray revealed placement of in tramedullary too and transverse screws fixating the fracture of the distal shaft of the femur in satisfactory internal fixation. No complicating process. 3 History of small cell carcinoma of the lung, initially diagnosed in 2019, status post chemotherapy, radiation, and immunotherapy, with most recent CT scan of the chest abdomen and pelvis showing evidence of disease progression. Patient follows with Dr. Gli and Dr. Oliva 4 History of nonischemic cardiomyopathy with EF of 35% 5 History of paroxysmal atrial fibrillation on Eliquis 6 Hypertension 7 Diabetes mellitus 8 Former nicotine dependence Plan: The patient was seen and evaluated Stable from the pulmonary standpoint Continue incentive spirometer Titrate the FiO2 as tolerated Continue Decadron, vitamin supplements Resume anticoagulants per surgical services Follow-up chest x-ray in a.m. We will continue to follow I, the cosigning physician, performed a history & physical examination of the patient. Lungs sounds with few scattered rhonchi. Maintaining good O2 saturations in the 90s on 2 L/m per nasal cannula. I discussed the assessment and plan of care with my nurse practitioner, Elen Mcmahon. I attest to the above note as dictated by her.
--- NOTE | 2021-07-14 14:58 | PN ---
PROGRESS NOTE DATE OF SERVICE: 07/14/2021 CHIEF COMPLAINT: Right leg pain. Piedad is seen today in followup. She recently underwent repair of right distal femoral shaft fracture. She appears to be progressing well postoperatively. CURRENT MEDICATION: Reviewed in her electronic medical record. PHYSICAL EXAMINATION: She is alert, oriented x3. She does not appear to be in distress. VITAL SIGNS: Temperature 97.7, afebrile. Pulse 77, regular. Respiration 19, blood pressure 123/65, pulse ox 95%. HEENT: Normocephalic, atraumatic. No icterus. NECK: Supple. CHEST: Equal expansion bilaterally. Lungs are clear. Heart is regular. ABDOMEN: Soft. No tenderness. Extremities revealed mild edema in the right leg. IMPRESSION: 1. Fracture of the distal right femoral shaft, status post repair. 2. Metastatic lung carcinoma. The patient is known to have squamous cell carcinoma and also she has small-cell lung carcinoma involving the contralateral lung. She has received multiple lines of therapy in the past and her last line of treatment was with single agent Gemzar. However, she developed disease progression on it. I saw her last week in the office and she was referred to start palliative radiation therapy to a large metastatic deposit in the right gluteal muscle, but unfortunately now she ended up with a fracture of her right femur. RECOMMENDATIONS: 1. Continue postoperative management. The patient appears to be progressing well. 2. The patient will still require palliative radiation therapy, as stated above. 3. The patient is scheduled to have a biopsy of the right supraclavicular node in the outpatient setting to determine if her disease progression is related to her squamous cell lung cancer or to her small-cell lung carcinoma before making further therapeutic decisions in regard to the next line of systemic treatment. MMODL / IJN: [id number] /
[2021-07-14 16:40] LABS: Glucose,Whole Blood 197 mg/dL (75-99)
[2021-07-14] MEDS: metFORMIN 500 MG TAB PO SCH (17:20)
--- NOTE | 2021-07-14 18:46 | PN ---
PROGRESS NOTE DATE OF SERVICE: 07/14/2021 This 75-year-old woman who was admitted with a distal right femur fracture has a history of lung cancer as well. The patient underwent intramedullary femoral fixation. No chest pain. No palpitations. No fever. PHYSICAL EXAMINATION: Alert and oriented x3. Pulse 77, blood pressure 120/62, respiration 18. HEENT: Conjunctivae normal. CARDIOVASCULAR: S1, S2 muffled. RESPIRATION: A few scattered rhonchi. No crackles. ABDOMEN: Soft, nontender. LEGS: Status post surgery. LABS: Reviewed. Hemoglobin 9.2. ASSESSMENT: 1. Status post right distal femoral shaft fracture and intramedullary femoral nail fixation. 2. Diabetes mellitus, type 2. 3. Atrial fibrillation. RECOMMENDATIONS AND DISCUSSION: I recommend to continue current medications, continue with the monitoring, symptomatic treatment, DVT prophylaxis, pain management, PT/OT evaluation. Closely follow with Orthopedic Surgery. Further recommendations to follow. OBDULIA / NAJMAN: [id number] /
[2021-07-14 20:39] LABS: Glucose,Whole Blood 201 mg/dL (75-99)
[2021-07-14] MEDS: ATORVASTATIN 10 MG TAB PO SCH (21:41)
[2021-07-14] MEDS: lisinopriL 20 MG TAB PO SCH (21:42)
[2021-07-15] MEDS: HYDROcodone/APAP 5-325MG 1 EACH TAB PO PRN ×4 (02:37→21:38)
[2021-07-15 07:13] LABS: Glucose,Whole Blood 133 mg/dL (75-99)
[2021-07-15] MEDS: SODIUM CHLORIDE 0.9% 1,000 ML IV SCH ×3 (07:15→16:19)
--- NOTE | 2021-07-15 08:15 | XR ---
EXAMINATION TYPE: XR chest 1V DATE OF EXAM: 07/15/2021 COMPARISON: CT 07/04/2021, chest x-ray 07/12/2021 INDICATION: Fall, pain TECHNIQUE: Single frontal view of the chest is obtained. FINDINGS: The heart size is enlarged. The pulmonary vasculature is normal. There are large prominent bilateral azeem. Underlying masses at correlate with the CT findings. Mild infiltrates developing at the right base. Correlate for atelectasis and pneumonia. Atypical pneu monia should be considered. Atypical pulmonary edema should be considered. IMPRESSION: 1. Persistent bilateral perihilar masses. 2. Developing mild infiltrate right base. Correlate for atypical pneumonia and Atypical pulmonary mari ma. Follow-up is recommended
[2021-07-15] MEDS: DEXAMETHASONE SOD PHOSPHATE 10 MG/ML 1 ML VIAL IVP SCH (08:20)
--- NOTE | 2021-07-15 08:57 | FL ---
Fluoroscopy INDICATION: Pain FINDINGS: Fluoroscopy time: 3 minutes 32 seconds. Images obtained: 0. IMPRESSIONS: 1. Documentation of fluoroscopy.
[2021-07-15] MEDS: ZINC SULFATE 220 MG CAP PO SCH (09:05)
[2021-07-15] MEDS: ASCORBIC ACID 500 MG TAB PO SCH ×2 (09:05→21:38)
[2021-07-15] MEDS: METOPROLOL TARTRATE 12.5 MG TAB PO SCH ×3 (09:05→21:38)
[2021-07-15] MEDS: INSULIN ASPART (NovoLOG) 100 UNIT/ML VIAL SQ SCH ×4 (09:05→21:38)
[2021-07-15] MEDS: CHOLECALCIFEROL 125 MCG (5000 IU) TABLET PO SCH (09:06)
[2021-07-15] MEDS: PANTOPRAZOLE 40 MG TABLET PO SCH (09:06)
[2021-07-15] MEDS: FUROSEMIDE 20 MG TAB PO SCH (09:06)
[2021-07-15] MEDS: AMIODARONE 200 MG TAB PO SCH (09:06)
[2021-07-15] MEDS: FENOFIBRATE 160 MG TAB PO SCH (09:06)
[2021-07-15] MEDS: SPIRONOLACTONE 25 MG TAB PO SCH (09:10)
[2021-07-15 11:38] LABS: Glucose,Whole Blood 184 mg/dL (75-99)
--- NOTE | 2021-07-15 12:34 | P.PN ---
Subjective Progress Note Date: 07/15/21 Principal diagnosis: Right femur fracture and acute COVID-19 infection This is a 75-year-old female patient with past medical history of small cell carcinoma of the lung, diabetes mellitus type 2, chronic cough, chronic A. fib, hypertension, hypercholesterolemia and patient follows with Dr. Maciel from pulmonary clinic, and Dr. Oseguera from medical oncology in regards to her small cell lung cancer. Patient carries [id number] smoking history which was diagnosed in [address]-guided needle biopsy. Patient underwent radiation therapy and received chemotherapy. Patient received carboplatin, Taxol and Keytruda. Patient continues to see Dr. Gil and she is supposed to see Dr. Oliva from radiation oncology in follow-up sometime next week. Most recent CT of the chest abdomen and pelvis from 07/04/2021 showed disease progression in the anterior left perihilar and mid lung mass, patchy and nodular postobstructive changes in the left upper lobe, progression of the right peritracheal and right supraclavicular lymphadenopathy, a new right midlung pulmonary nodule which was suspicious. Left obturator workers compensation claims assistant and right gluteus juliet soft tissue metastasis and a worsening right perihilar and right lower lobe consolidation. On 07/12/2021 patient was brought into the hospital by EMS with right lower extremity pain after a fall. Patient states she fell backwards on her back. She does not remember falling. Denied any loss of consciousness or head injury. She did have significant right lower extremity pain. Patient is on anticoagulation for chronic atrial fibrillation. In the ER she was noted to have a shortened right lower extremity. X-ray of the right hip and pelvis showed no acute fracture or dislocation in the pelvis, did not right distal femoral shaft fracture, closed, needed and displaced. Chest x-ray showed cardiomegaly with bilateral central masslike opacities that are stable but worrisome for neoplasm. Patient with tested for COVID-19 as part of routine screening and was found to be positive, she denies any shortness of breath, co ugh, no fever or chills. This was an incidental finding, she is vaccinated with [employer] P[employer] vaccine and blistered with the same vaccine. She is on 2 L of oxygen pulse ox of 90%, she's been afebrile while in the hospital, she is hemodynamically stable, she has been scheduled for surgery for repair of the right femoral fracture by Dr. Friend today on 07/13/2021 The patient is seen today 07/14/2021 in follow-up on the regular medical floor. She did undergo repair of her right femur fracture last evening. Follow-up x- ray revealed placement of intramedullary too and transverse screws fixating the fracture of the distal shaft of the femur with satisfactory internal fixation. No complicating process seen. She is currently resting comfortably in bed. Awake and alert in no acute distress. She is maintaining good O2 saturations in the mid 90s on 2 L/m per nasal cannula. Afebrile. Hemodynamically stable. She is continued on cefazolin. She is continued on Decadron, vitamin supplements. Pain is well controlled with Dilaudid. Reevaluated today on 07/15/2021, patient seems to be doing well, asymptomatic, resting in bed, not in any distress, pain is under control. O2 saturation is 94% on 2 L nasal cannula Objective - Vital Signs Vital signs: Vital Signs Temp 98.7 F 07/15/21 05:41 Pulse 67 07/15/21 05:41 Resp 15 07/15/21 05:41 BP 116/63 07/15/21 05:41 Pulse Ox 94 L 07/15/21 07:36 Intake & Output 07/14/21 07/15/21 07/15/21 18:59 06:59 18:59 Intake Total 360 180 Output Total 575 600 Balance -215 -420 Intake: Oral 360 180 Output: Urine 575 600 Other: Voiding Method Indwelling Catheter Indwelling Catheter Indwelling Catheter - Exam Physical Exam: Revealed a 75-year-old female pleasant in no distress, on 2 L nasal cannula. Head: Atraumatic normocephalic. HEENT:[Neck is supple.] [No neck masses.] [No thyromegaly.] [No JVD.] Chest: [Clear throughout, no crackles, no rhonchi, no wheezes.] Cardiac Exam: [Normal S1 and S2, no S3 gallop, no murmur.] Abdomen: [Soft, nontender, no megaly, no rebound, no guarding, normal bowel sounds.] Extremities: [No clubbing, no edema, no cyanosis.] Neurological Exam: [No focal neurologic deficit.] Alert oriented 3. Psychiatric: Normal mood affect and normal mental status examination. Skin: No rashes. - Labs CBC & Chem 7: 07/13/21 15:04 07/13/21 15:04 Labs: Abnormal Lab Results - Last 24 Hours (Table) 07/14/21 07/14/21 07/15/21 Range/Units 16:38 20:32 07:12 POC Glucose (mg/dL) 197 H 201 H 133 H (75-99) mg/dL 07/15/21 Range/Units 11:36 POC Glucose (mg/dL) 184 H (75-99) mg/dL Assessment and Plan Assessment: Impression: Acute COVID-19 infection without any symptoms Acute right femur fracture secondary to fall. Status post repair. History of small cell lung cancer History of nonischemic cardiomyopathy with ejection fraction of 35% History of paroxysmal atrial fibrillation. Type 2 diabetes. Ex-smoker. Benign essential hypertension. Recommendation: Continue present supportive care measures Continue Decadron. Continue physical therapy. Consider discharge planning to rehabilitation in the next 24 hours. We will continue to follow. Time with Patient: Less than 30
--- NOTE | 2021-07-15 13:37 | P.PN ---
Subjective Progress Note Date: 07/15/21 Principal diagnosis: Right distal femoral shaft fracture Patient was seen at bedside this morning resting sitting up in chair. Patient says she did get up with assistance this morning and stood up at bedside. She says she feels better than she did yesterday as far as pain control. Patient says she was happy she was able to do a little more with PT today and said she stood up at bedside with walker. Patient denies chest pain, fever, shortness of breath, nausea, vomiting, change in vision, loss of bowel/bladder control. Objective - Vital Signs Vital signs: Vital Signs Temp 98.7 F 07/15/21 05:41 Pulse 67 07/15/21 05:41 Resp 15 07/15/21 05:41 BP 116/63 07/15/21 05:41 Pulse Ox 94 L 07/15/21 07:36 Intake & Output 07/14/21 07/15/21 07/15/21 18:59 06:59 18:59 Intake Total 360 180 Output Total 575 600 Balance -215 -420 Intake: Oral 360 180 Output: Urine 575 600 Other: Voiding Method Indwelling Catheter Indwelling Catheter Indwelling Catheter - Exam Deniz bandage is present over the right leg. Adaptic, 4 x 4's, ABDs and cast padding is present beneath the Deniz bandage. At this time will keep on the ba ndages and Deniz wrap to help compress the knee and limit some of the postoperative swelling. Moderate TTP just proximal to the right knee along the fracture site. Nontender to palpation throughout rest exam. Sensation is equal, symmetric, bilateral intact throughout the lower extremities. Neurova scular status intact. DP pulses intact bilaterally. Feet are lukewarm to touch. Patient is able to fully dorsi and plantarflex the right ankle and wiggle toes in the right foot. Patient is unable flex right knee or right hip as time. 3+/5 resisted right ankle dorsi/plantar flexion. 2+/5 in resisted right knee flexion/extension right hip flexion/extension. Negative Homans bilaterally - Labs CBC & Chem 7: 07/13/21 15:04 07/13/21 15:04 Labs: Abnormal Lab Results - Last 24 Hours (Table) 07/14/21 07/14/21 07/15/21 Range/Units 16:38 20:32 07:12 POC Glucose (mg/dL) 197 H 201 H 133 H (75-99) mg/dL 07/15/21 Range/Units 11:36 POC Glucose (mg/dL) 184 H (75-99) mg/dL Assessment and Plan Assessment: Right distal femoral shaft fracture Postoperative day #2 status post retrograde intramedullary femoral nail fixation Plan: 1. Right distal femoral shaft fracture - surgery performed 07/13/2021 - retrograde intramedullary femoral nail fixation. Patient stable at bedside this morning. Recommend use of knee immobilizer when patient is ambulating. 50% weightbearing with a walker and assistance on right leg. While in bed, we do encourage patient to flex and extend at the right leg to limit stiffness. DENIZ wrap maybe removed at this time. We'll continue follow patient while in hospital. 2. Appreciate medical, cardiology and pulmonology management 3. Pain management - [place]; Tylenol; Flexeril 4. GI prophylaxis - Protonix 5. DVT prophylaxis - patient may resume blood thinners 6. PT/OT - 50% weightbearing right leg with walker and assistance. Recommend use of knee immobilizer while ambulating. Weightbearing as tolerated other extremities 7. Encourage incentive spirometer use 8. Discharge planning - pending Time with Patient: Less than 30
--- NOTE | 2021-07-15 16:07 | PN ---
PROGRESS NOTE DATE OF SERVICE: 07/15/2021 CHIEF COMPLAINT: Leg pain. Piedad is seen today in followup. She has right leg pain, but overall she is progressing very well after her surgery. No nausea or vomiting. No fever or chills. CURRENT MEDICATION: Reviewed in her electronic medical record. PHYSICAL EXAMINATION: She is alert, oriented x3. She does not appear to be in distress. VITAL SIGNS: Temperature 98.7, pulse is 67, respiration 15, blood pressure 116/83, pulse ox 94% on 2 L. HEENT: Normocephalic, atraumatic. No icterus. NECK: Supple. Lungs are clear to auscultation. Heart is regular rate and rhythm. ABDOMEN: Soft. No tenderness. Extremities revealed no significant edema. IMPRESSION: 1. Fracture of the distal right femoral shaft, status post surgical repair. 2. Metastatic lung carcinoma. The patient is known to have two primaries. She has squamous cell lung carcinoma and also she has small-cell lung carcinoma involving the contralateral lung. The patient was diagnosed almost two years ago with both primaries at the same time. The patient has received multiple lines of treatment; the last systemic treatment was Gemzar, which was held due to recent disease progression, and she was referred in the outpatient setting to have palliative radiation therapy to a known large metastatic deposit in the right gluteal muscle. But unfortunately she ended up with right femur fracture. RECOMMENDATIONS: 1. Continue postoperative care. The patient appears to be progressing well. 2. The patient will benefit from palliative radiation therapy, as was previously planned. 3. The patient is also scheduled to have a biopsy of the right supraclavicular node in the outpatient setting to determine if her recent progression is related to her squamous cell lung cancer or her small-cell lung carcinoma. The above was discussed with the patient and I have answered all of her questions. MMODL / IJN: [id number] /
[2021-07-15 16:41] LABS: Glucose,Whole Blood 250 mg/dL (75-99)
[2021-07-15] MEDS: metFORMIN 500 MG TAB PO SCH (17:03)
--- NOTE | 2021-07-15 19:27 | PN ---
PROGRESS NOTE DATE OF SERVICE: 07/15/2021 This 75-year-old woman who was admitted with right distal femoral shaft fracture and intramedullary femoral nail fixation is being closely monitored. No chest pain. No palpitations. No fever. PHYSICAL EXAMINATION: Alert and oriented x3. Pulse 78, blood pressure 126/60, respiration 17. HEENT: Conjunctivae normal. CARDIOVASCULAR: S1, S2 muffled. RESPIRATION: Breath sounds diminished at the bases. ABDOMEN: Soft. NERVOUS SYSTEM: No focal deficit. LEGS: Status post surgery. LABS: Accu-Cheks noted. ASSESSMENT: 1. Status post right distal femoral shaft fracture and intramedullary femoral nail fixation. 2. Diabetes mellitus, type 2. 3. Atrial fibrillation. RECOMMENDATIONS AND DISCUSSION: I recommend to continue current medications, continue with the monitoring, symptomatic treatment. Monitor blood sugars closely. DVT prophylaxis. Dr. Ramirez will follow. MMBROOKEL / NAJMAN: [id number] /
[2021-07-15 19:57] LABS: Glucose,Whole Blood 224 mg/dL (75-99)
[2021-07-15] MEDS: lisinopriL 20 MG TAB PO SCH (21:38)
[2021-07-15] MEDS: ATORVASTATIN 10 MG TAB PO SCH (21:38)
[2021-07-16] MEDS: HYDROcodone/APAP 5-325MG 1 EACH TAB PO PRN ×3 (00:39→17:25)
[2021-07-16] MEDS: SODIUM CHLORIDE 0.9% 1,000 ML IV SCH ×4 (00:41→20:45)
[2021-07-16 06:50] LABS: Glucose,Whole Blood 103 mg/dL (75-99)
[2021-07-16] MEDS: INSULIN ASPART (NovoLOG) 100 UNIT/ML VIAL SQ SCH ×4 (07:54→20:44)
[2021-07-16] MEDS: FUROSEMIDE 20 MG TAB PO SCH (08:31)
[2021-07-16] MEDS: AMIODARONE 200 MG TAB PO SCH (08:31)
[2021-07-16] MEDS: FENOFIBRATE 160 MG TAB PO SCH (08:31)
[2021-07-16] MEDS: ZINC SULFATE 220 MG CAP PO SCH (08:31)
[2021-07-16] MEDS: METOPROLOL TARTRATE 12.5 MG TAB PO SCH ×3 (08:32→20:42)
[2021-07-16] MEDS: ASCORBIC ACID 500 MG TAB PO SCH ×2 (08:32→20:42)
[2021-07-16] MEDS: SPIRONOLACTONE 25 MG TAB PO SCH (08:32)
[2021-07-16] MEDS: CHOLECALCIFEROL 125 MCG (5000 IU) TABLET PO SCH (08:32)
[2021-07-16] MEDS: PANTOPRAZOLE 40 MG TABLET PO SCH (08:32)
--- NOTE | 2021-07-16 09:27 | P.PN ---
Subjective Progress Note Date: 07/16/21 Principal diagnosis: Right distal femur fracture Patient seen and examined she is sitting up embedding breakfast she is doing fairly well today states her leg feels pretty good. Little painful when he gets up for her to move but she is able to get up and get to chair. She uses a walker for this. She denies a numbness or tingling denies any other symptoms currently. Objective - Vital Signs Vital signs: Vital Signs Temp 98.3 F 07/16/21 05:20 Pulse 69 07/16/21 08:04 Resp 15 07/16/21 05:20 BP 147/67 07/16/21 05:20 Pulse Ox 94 L 07/16/21 08:04 Intake & Output 07/15/21 07/16/21 07/16/21 18:59 06:59 18:59 Intake Total 222 Output Total 1800 1000 Balance -1800 -778 Intake: Oral 222 Output: Urine 1800 1000 Other: Voiding Method Indwelling Catheter Indwelling Catheter - Exam Exam is repeated changes noted below. Her dressing is doing well but we will taken off today and change her underlying dressings if needed. Patient is alert and oriented 3 appears well-nourished well-hydrated is in no acute distress. They does not appear septic. On exam the patient has no tenderness to palpation of her thoracic or lumbar spine. There is no edema or ballottement sign. Lower extremities with 5 out of 5 strength in all major muscle groups except right lower extremity limited due to fracture Upper extremities show 5/5 strength in all major muscle groups. There is FROM that is painless of the b/l UE and LE in all major joints. Except right lower extremity due to fracture They are intact to light touch sensation in L2 to S1 nerve distribution. Patient has palpable dorsalis pedis was posterior tibial pulses. Compartments are soft and compressible. Patient shows a negative Homans, Pabon's, negative Babinski's negative clonus bilaterally. negative straight leg raise bilaterally. No tensioning signs. Cranial nerves II through XII are grossly intact. Overall alignment is well-maintained in the sagittal coronal planes. - Labs CBC & Chem 7: 07/13/21 15:04 07/13/21 15:04 Labs: Abnormal Lab Results - Last 24 Hours (Table) 07/15/21 07/15/21 07/15/21 Range/Units 11:36 16:39 19:55 POC Glucose (mg/dL) 184 H 250 H 224 H (75-99) mg/dL 07/16/21 Range/Units 06:48 POC Glucose (mg/dL) 103 H (75-99) mg/dL Assessment and Plan Assessment: 75-year-old female postop day 3 right distal femur fracture with intramedullary nail fixation 1. Right distal femoral shaft fracture, closed, comminuted, displaced 2. s/p ffs 3. complex medical patient, history of metastatic lung cancer Plan: -Appreciate instructional systems design consultant and team management. -Activity: Ambulate QID, OOB all meals, up and about, limit lifting bending twisting to less than 5 lbs. Use walker or cane if needed for stability. -Daily PT/OT, increase ambulation strength and balance. -Knee immobilizer when up and walking not needed in chair bed -Pain control: [Adequate at this time] -Meds: [reviewed] -GI ppx: senna, Miralax -DC mchugh when up and about, bedside commode if needed -DVT PPX: [place] subcuisela SCDs -Hygiene: Shower okay today. Change dressing today -Encourage IS 10x/hr -Dispo: [Pending]
[2021-07-16 11:15] LABS: Glucose,Whole Blood 154 mg/dL (75-99)
[2021-07-16] MEDS ORDERED: dexAMETHasone 2 MG TAB PO SCH (11:15)
--- NOTE | 2021-07-16 11:53 | P.PN ---
Subjective Progress Note Date: 07/16/21 Principal diagnosis: distal femur fracture, S/P Orthopedic surgical repair In f/u pt doing fairly well. No acute c/o. Denies bleeding at this time. Objective - Vital Signs Vital signs: Vital Signs Temp 98.4 F 07/16/21 09:19 Pulse 59 L 07/16/21 09:19 Resp 17 07/16/21 09:19 BP 164/69 07/16/21 09:19 Pulse Ox 92 L 07/16/21 09:19 Intake & Output 07/15/21 07/16/21 07/16/21 18:59 06:59 18:59 Intake Total 222 Output Total 1800 1000 Balance -1800 -778 Intake: Oral 222 Output: Urine 1800 1000 Other: Voiding Method Indwelling Catheter Indwelling Catheter - Labs CBC & Chem 7: 07/13/21 15:04 07/13/21 15:04 Labs: Abnormal Lab Results - Last 24 Hours (Table) 07/15/21 07/15/21 07/15/21 Range/Units 11:36 16:39 19:55 POC Glucose (mg/dL) 184 H 250 H 224 H (75-99) mg/dL 07/16/21 Range/Units 06:48 POC Glucose (mg/dL) 103 H (75-99) mg/dL Assessment and Plan (1) Femur fracture Narrative/Plan: S/P surgical repair. Pending pathology. Sent message to Othopedic Surgeon re: resumption of full dose anticoagulation pt was on, Pt is high risk for blood clots 2/2 cancer, surgery and immobility. Current Visit: Yes Status: Acute Priority: High Code(s): S72.90XA - UNSP FRACTURE OF UNSP FEMUR, INIT ENCNTR FOR CLOSED FRACTURE SNOMED Code(s): 57464534 (2) COVID-19 Current Visit: Yes Status: Acute Priority: High Code(s): U07.1 - COVID-19 SNOMED Code(s): 966304071 (3) Squamous cell lung cancer Current Visit: Yes Status: Chronic Priority: High Code(s): C34.90 - MALIGNANT NEOPLASM OF UNSP PART OF UNSP BRONCHUS OR LUNG SNOMED Code(s): 660081609 (4) Small cell lung cancer Current Visit: Yes Status: Chronic Priority: Medium Code(s): C34.90 - MALIGNANT NEOPLASM OF UNSP PART OF UNSP BRONCHUS OR LUNG SNOMED Code(s): 147299143 Plan: Start palliative XRT in the near future, pending Rad Onc evaluation of pt post op Keep appt for scheduled supraclavicular biopsy. Pending path for treatment recommendations Doctor attests: I performed a history and physical examination of this patient, developed impression and plan of care, discussed with dictator. I agree with dictators note, documented as a scribe.
[2021-07-16] MEDS: DEXAMETHASONE SOD PHOSPHATE 10 MG/ML 1 ML VIAL IVP SCH (11:55)
[2021-07-16] MEDS: CYCLOBENZAPRINE 10 MG TAB PO PRN (12:01)
--- NOTE | 2021-07-16 14:23 | P.PN ---
Subjective Progress Note Date: 07/16/21 Principal diagnosis: COVID-19 infection This is a 75-year-old female patient with past medical history of small cell carcinoma of the lung, diabetes mellitus type 2, chronic cough, chronic A. fib, hypertension, hypercholesterolemia and patient follows with Dr. Maciel from pulmonary clinic, and Dr. Oseguera from medical oncology in regards to her small cell lung cancer. Patient carries [id number] smoking history which was diagnosed in [address]-guided needle biopsy. Patient underwent radiation therapy and received chemotherapy. Patient received carboplatin, Taxol and K eytruda. Patient continues to see Dr. Gil and she is supposed to see Dr. Oliva from radiation oncology in follow-up sometime next week. Most recent CT of the chest abdomen and pelvis from 07/04/2021 showed disease progression in the anterior left perihilar and mid lung mass, patchy and nodular postobstructive changes in the left upper lobe, progression of the right peritracheal and right supraclavicular lymphadenopathy, a new right midlung pulmonary nodule which was suspicious. 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 On 07/12/2021 patient was brought into the hospital by EMS with right lower extremity pain after a fall. Patient states she fell backwards on her back. She does not remember falling. Denied any loss of consciousness or head injury. She did have significant right lower extremity pain. Patient is on anticoagulation for chronic atrial fibrillation. In the ER she was noted to have a shortened right lower extremity. X-ray of the right hip and pelvis showed no acute fracture or dislocation in the pelvis, did not right distal femoral shaft fracture, closed, needed and displaced. Chest x-ray showed cardiomegaly with bilateral central masslike opacities that are stable but worrisome for neoplasm. Patient with tested for COVID-19 as part of routine screening and was found to be positive, she denies any shortness of breath, cough, no fever or chills. This was an incidental finding, she is vaccinated with [employer] P[employer] vaccine and blistered with the same vaccine. She is on 2 L of oxygen pulse ox of 90%, she's been afebrile while in the hospital, she is hemodynamically stable, she has been scheduled for surgery for repair of the right femoral fracture by Dr. Friend today on 07/13/2021 The patient is seen today 07/14/2021 in follow-up on the regular medical floor. She did undergo repair of her right femur fracture last evening. Follow-up x- ray revealed placement of intramedullary too and transverse screws fixating the fracture of the distal shaft of the femur with satisfactory internal fixation. No complicating process seen. She is currently resting comfortably in bed. Awake and alert in no acute distress. She is maintaining good O2 saturations in the mid 90s on 2 L/m per nasal cannula. Afebrile. Hemodynamically stable. She is continued on cefazolin. She is continued on Decadron, vitamin supplements. Pain is well controlled with Dilaudid. Reevaluated today on 07/15/2021, patient seems to be doing well, asymptomatic, resting in bed, not in any distress, pain is under control. O2 saturation is 94% on 2 L nasal cannula On 07/16/2021 patient seen in follow-up on medical surgical floor, she sits up in the chair, she remains asymptomatic from pulmonary perspective, earlier today she was not liters of oxygen she is currently on room air, satting 92-94%, breathing comfortably, no cough, no complaints of shortness of breath, no chest discomfort. Today is postoperative day #3, status post right distal femur fract ure with intramedullary nail fixation. Patient continues on Decadron 6 mg daily, she remains on vitamins, including vitamin C, zinc and D. She is on prophylactic Lovenox Objective - Vital Signs Vital signs: Vital Signs Temp 98.4 F 07/16/21 09:19 Pulse 59 L 07/16/21 09:19 Resp 17 07/16/21 09:19 BP 164/69 07/16/21 09:19 Pulse Ox 92 L 07/16/21 09:19 Intake & Output 07/15/21 07/16/21 07/16/21 18:59 06:59 18:59 Intake Total 222 Output Total 1800 1000 1000 Balance -1800 778 -1000 Intake: Oral 222 Output: Urine 1800 1000 1000 Uretheral (Collado) 1000 Other: Voiding Method Indwelling Catheter Indwelling Catheter Indwelling Catheter - Exam GENERAL EXAM: Alert, very pleasant, 75-year-old white female, on room air with pulse ox of 92-94% comfortable in no apparent distress. HEAD: Normocephalic/atraumatic. EYES: Normal reaction of pupils, equal size. Conjunctiva pink, sclera white. NOSE: Clear with pink turbinates. THROAT: No erythema or exudates. NECK: No masses, no JVD, no thyroid enlargement, no adenopathy. CHEST: No chest wall deformity. Symmetrical expansion. LUNGS: Equal air entry with no crackles, wheeze, rhonchi or dullness. CVS: Irregular rate and rhythm, normal S1 and S2, no gallops, no murmurs, no rub s ABDOMEN: Soft, nontender. No hepatosplenomegaly, normal bowel sounds, no guarding or rigidity. EXTREMITIES: No clubbing, no edema, no cyanosis, 2+ pulses and upper and lower extremities. Right hip incision has not been expected, covered with surgical dressing MUSCULOSKELETAL: Muscle strength and tone normal. SPINE: No scoliosis or deformity SKIN: No rashes CENTRAL NERVOUS SYSTEM: Alert and oriented -3. No focal deficits, tone is normal in all 4 extremities. PSYCHIATRIC: Alert and oriented -3. Appropriate affect. Intact judgment and insight. - Labs CBC & Chem 7: 07/13/21 15:04 07/13/21 15:04 Labs: Abnormal Lab Results - Last 24 Hours (Table) 07/15/21 07/15/21 07/16/21 Range/Units 16:39 19:55 06:48 POC Glucose (mg/dL) 250 H 224 H 103 H (75-99) mg/dL 07/16/21 Range/Units 11:12 POC Glucose (mg/dL) 154 H (75-99) mg/dL Assessment and Plan Plan: Assessment: #1. Acute COVID-19 infection, an incidental finding, patient is asymptomatic an d this was discovered as part of routine screening process. The length of COVID-19 infection is unknown, patient is currently on 2 L of oxygen, she is on Decadron 6 mg daily, she is not a candidate for Remdesivir due to unknown length of Time of her infection #2. Acute right femoral comminuted and displaced fracture related to a fall, status post surgical repair and intramedullary nail fixation on 07/13/2021 #3. History of small cell carcinoma of the lung, initially diagnosed in 2019, status post chemotherapy, radiation, and immunotherapy, with most recent CT scan of the chest abdomen and pelvis showing evidence of disease progression. Patient follows with Dr. Gil and Dr. Oliva #4. History of nonischemic cardiomyopathy with EF of 35% #5. History of paroxysmal atrial fibrillation on Eliquis #6. Hypertension #7. Diabetes mellitus #8. Former nicotine dependence Plan: Remains asymptomatic from pulmonary perspective She is on room air Breathing comfortably Discontinue Decadron Anticoagulation per orthopedic surgery Agree with Lovenox 30 mg daily She is awaiting transfer to subacute rehab, Stable for transfer to [facility] from pulmonary perspective I performed a history & physical examination of the patient and discussed their management with my nurse practitioner, Emily Avila. I reviewed the nurse practitioner's note and agree with the documented findings and plan of care. Lung sounds are positive for diffuse wheezes throughout the lung zamora. The findings and the impression was discussed with the patient. I attest to the documentation by the nurse practitioner. Time with Patient: Less than 30
--- NOTE | 2021-07-16 16:04 | P.PN ---
Subjective Progress Note Date: 07/16/21 Principal diagnosis: right distal femur fracture / fall Patient reports she is feeling better today. She has some pressure/discomfort just above the right knee. Her pain is greatly improved from admission. Her right buttock lesion is not bothering her as much right now, but she is mostly in bed. Has been up to walk with a walker however. No difficulty with cough or dyspnea - patient did test positive for covid but is asymptomatic (prior immunization). Objective - Vital Signs Vital signs: Vital Signs Temp 98.4 F 07/16/21 09:19 Pulse 59 L 07/16/21 09:19 Resp 17 07/16/21 09:19 BP 164/69 07/16/21 09:19 Pulse Ox 92 L 07/16/21 09:19 Intake & Output 07/15/21 07/16/21 07/16/21 18:59 06:59 18:59 Intake Total 222 Output Total 1800 1000 1000 Balance -1800 778 -1000 Intake: Oral 222 Output: Urine 1800 1000 1000 Uretheral (Collado) 1000 Other: Voiding Method Indwelling Catheter Indwelling Catheter Indwelling Catheter - Constitutional General appearance: Present: no acute distress - EENT Eyes: Present: EOMI, PERRLA ENT: Present: NA/AT - Neck Neck: Absent: lymphadenopathy - Respiratory Respiratory: bilateral: CTA - Cardiovascular Rhythm: regular - Gastrointestinal General gastrointestinal: Absent: distended, tenderness - Integumentary Integumentary: Absent: calor, cellulitis - Neurologic Neurologic: Present: CNII-XII intact - Psychiatric Psychiatric: Present: A&O x's 3, appropriate affect - Labs CBC & Chem 7: 07/13/21 15:04 07/13/21 15:04 Labs: Abnormal Lab Results - Last 24 Hours (Table) 07/15/21 07/15/21 07/16/21 Range/Units 16:39 19:55 06:48 POC Glucose (mg/dL) 250 H 224 H 103 H (75-99) mg/dL 07/16/21 Range/Units 11:12 POC Glucose (mg/dL) 154 H (75-99) mg/dL Assessment and Plan Assessment: The patient is a 75-year-old female with a history of a limited stage small cell lung cancer of the right lower lobe with a suspicious hilar lymph node. Of note, the patient also had a separate lesion in the left upper lung which was clinically suspicious but biopsy negative. She has initiated chemotherapy, and subsequent chemoradiation to the right lung finishing on 11/26/19. She unf ortunately developed progression of the left upper lung lesion which was subsequently biopsied as squamous cell carcinoma. This was seen to involve ipsilateral hilar, level V and VII mediastinal lymph nodes. She finished Carbo/Alimta/Keytruda in 07/2020 and was on Keytruda. When she progressed she had treatment with Gemzar. She recently has had pain in the right buttock due to a soft tissue lesion in this area consistent with disease progression. She was scheduled to start XRT today, however she had a fall and suffered a right distal femur fracture. She underwent IM nail placement 07/13/21. 1. Right distal femur fx: Await path; may not be pathologic. If this is found to be a pathologic fracture, we will perform post-op RT on the hardware. 2. Metastatic lung cancer: Patient was scheduled to start palliation to the right gluteal lesion today - this is on hold due to her fall/fracture. Her pain is currently reasonably well controlled, but she did admit that the right gluteal pain was mostly exacerbated by weight bearing (which she is doing less of). Since she is likely to be discharged to rehab - we will look to start her treatment next Friday. 3. COVID+: Asymptomatic, patient vaccinated. No contraindication to radiation.
--- NOTE | 2021-07-16 16:20 | P.PN ---
Subjective Progress Note Date: 07/16/21 - History of Present Illness This is a 75-year-old female with past medical history of lung cancer, atrial fibrillation on Eliquis, former nicotine dependence, diabetes mellitus, hyp ertension and multiple other medical issues presented to the ER status post fall with right lower extremity pain/unsure if she actually passed out. Details surrounding patient's fall, vague. Reports she is scheduled to start chemotherapy/radiation next week. Brain C-spine CT reported no acute fracture or dislocation in the cervical spine with no acute intracranial hemorrhage or midline shift. Right knee x-ray reported acute displaced comminuted fracture distal diaphysis right femur. Right hip and pelvis x-ray reported no additional acute fracture or dislocation in the pelvis or right hip. Chest x-ray reported cardiomegaly with bilateral central masslike opacities increased-left greater than right, possible neoplasm. Coronavirus PCR positive.Currently requiring 2 L nasal cannula to maintain O2 sats in the 90s. Denies chest pain, palpitations or shortness of breath. Denies lightheadedness dizziness or focal deficits. Vital signs stable. EKG reporting sinus with first-degree AV block ,moderate T- wave abnormality, anterior lateral ischemia the 3 through V6. Troponin negative 1. WBC 10.7, hemoglobin 11, platelets 186, neutrophils 9.9, INR 1.2, sodium 137, potassium 4.4, BUN 22, creatinine 0.87, blood sugars 109-172, magnesium 2, LFTs within normal limits. 07/16/21 continues on covid cocktail. significant clinical improvement. Maintaining O2 sats in the 90s on room air. Ambulating with walker. Pain controlled. Passing flatus. Denies chest pain, palpitations or shortness of breath. Afebrile. Objective - Vital Signs Vital signs: Vital Signs Temp 98.4 F 07/16/21 09:19 Pulse 59 L 07/16/21 09:19 Resp 17 07/16/21 09:19 BP 164/69 07/16/21 09:19 Pulse Ox 92 L 07/16/21 09:19 Intake & Output 07/15/21 07/16/21 07/16/21 18:59 06:59 18:59 Intake Total 222 Output Total 1800 1000 Balance -1800 -238 Intake: Oral 222 Output: Urine 1800 1000 Other: Voiding Method Indwelling Catheter Indwelling Catheter - Exam - Exam PHYSICAL EXAM: VITAL SIGNS: As above GENERAL: Sitting up in chair, no acute distress HEENT: Conjunctivae normal. eyes normal. NECK: Supple, No JVD. CARDIOVASCULAR: S1, S2 regular.irregular, positive systolic murmur RESPIRATION: Breath sounds diminished in the bases. No rhonchi or crackles. ABDOMEN: Soft, nontender . No guarding. no masses palpable. Bowel sounds heard. LEGS: Right hip dressing clean dry and intact, positive PT & DP pulses. PSYCHIATRY: Alert and oriented X3, mood and affect normal. NERVOUS SYSTEM: Cranial N 2-12 grossly normal. No focal deficits. Strength and sensation grossly intact. Skin: Warm and dry, no rash - Labs CBC & Chem 7: 07/13/21 15:04 07/13/21 15:04 Labs: Abnormal Lab Results - Last 24 Hours (Table) 07/15/21 07/15/21 07/15/21 Range/Units 11:36 16:39 19:55 POC Glucose (mg/dL) 184 H 250 H 224 H (75-99) mg/dL 07/16/21 07/16/21 Range/Units 06:48 11:12 POC Glucose (mg/dL) 103 H 154 H (75-99) mg/dL Assessment and Plan Assessment: Acute displaced comminuted fracture distal diaphysis right femur, status post fall. Status post surgical repair and intramedullary nail fixation 07/13/21 Acute COVID-19 infection, present on admission Lung CA, scheduled to begin chemotherapy/radiation after discharge from subacute rehab Paroxysmal atrial fibrillation with RVR with history of chronic paroxysmal atrial fibrillation, cardioversion Chronic CHF with mildly reduced systolic function, worsening secondary to the above Mild acute renal failure secondary to diuresing Acute hypoxic respiratory failure secondary to the above Diabetes mellitus type 2 Moderate to severe mitral regurgitation Moderate tricuspid regurgitation Hypertension Plan: Continue on current medication regime ,monitoring and symptomatic treatment. Significant clinical improvement. Maintained on Covid cocktail. Pain management/anticoagulation as per orthopedic surgery. Discharge planning in progress to subacute rehab as per primary. Follow-up with PCP 1 week after discharge from subacute rehab. The impression and plan of care has been dictated as directed. : I performed a history and examination of this patient, discussed the same with the dictator. I agree with the dictator's note ,documented as a scribe. Any additional findings or plans will be noted.
[2021-07-16 16:21] LABS: Glucose,Whole Blood 229 mg/dL (75-99)
[2021-07-16] MEDS: ENOXAPARIN 30 MG/0.3 ML SYRINGE SQ SCH (17:18)
[2021-07-16] MEDS: metFORMIN 500 MG TAB PO SCH (17:26)
[2021-07-16 20:30] LABS: Glucose,Whole Blood 218 mg/dL (75-99)
[2021-07-16] MEDS: lisinopriL 20 MG TAB PO SCH (20:42)
[2021-07-16] MEDS: CEPHALEXIN 500 MG CAP PO SCH (20:42)
[2021-07-16] MEDS: ATORVASTATIN 10 MG TAB PO SCH (20:42)
[2021-07-17] MEDS: HYDROcodone/APAP 5-325MG 1 EACH TAB PO PRN ×2 (00:46→05:25)
[2021-07-17 01:45] VITALS: RESP 15
[2021-07-17 07:00] LABS: Glucose,Whole Blood 127 mg/dL (75-99)
[2021-07-17] MEDS: INSULIN ASPART (NovoLOG) 100 UNIT/ML VIAL SQ SCH ×3 (07:04→17:39)
[2021-07-17] MEDS: PANTOPRAZOLE 40 MG TABLET PO SCH (07:59)
[2021-07-17] MEDS: FENOFIBRATE 160 MG TAB PO SCH (07:59)
[2021-07-17] MEDS: ASCORBIC ACID 500 MG TAB PO SCH (08:00)
[2021-07-17] MEDS: CHOLECALCIFEROL 125 MCG (5000 IU) TABLET PO SCH (08:00)
[2021-07-17] MEDS: SPIRONOLACTONE 25 MG TAB PO SCH (08:00)
[2021-07-17] MEDS: CEPHALEXIN 500 MG CAP PO SCH (08:00)
[2021-07-17] MEDS: METOPROLOL TARTRATE 12.5 MG TAB PO SCH ×2 (08:00→16:47)
[2021-07-17] MEDS: FUROSEMIDE 20 MG TAB PO SCH (08:00)
[2021-07-17] MEDS: ENOXAPARIN 30 MG/0.3 ML SYRINGE SQ SCH (08:00)
[2021-07-17] MEDS: AMIODARONE 200 MG TAB PO SCH (08:00)
[2021-07-17] MEDS: ZINC SULFATE 220 MG CAP PO SCH (08:00)
[2021-07-17 08:59] LABS: Basophils # (A) 0.01 X 10*3/uL (0.00-0.10); Basophils % (A) 0.1 %; Eosinophils # (A) 0.01 X 10*3/uL (0.04-0.35); Eosinophils % (A) 0.1 %; HCT 27.2 % (37.2-46.3); HGB 8.1 g/dL (12.0-15.0); Immature Grans, Automated 0.5 %; Lymphocytes # (A) 0.58 X 10*3/uL (0.90-5.00); Lymphocytes % (A) 7.6 %; MCH 26.1 pg (27.0-32.0); MCHC 29.8 g/dL (32.0-37.0); MCV 87.7 fL (80.0-97.0); Mean Platelet Volume 10.3 fL (9.5-12.2); Monocytes # (A) 0.66 X 10*3/uL (0.20-1.00); Monocytes % (A) 8.7 %; NRBC Per 100 WBC 0 /100 WBCS (0.0-0.0); Neutrophils # (A) 6.32 X 10*3/uL (1.80-7.70); Platelet Count 272 X 10*3/uL (140-440); RDW 15.2 % (11.5-14.5); WBC 7.62 X 10*3/uL (4.50-10.00)
[2021-07-17 10:29] LABS: African American GFR (CKD) 98.9 (60.0-200.0); Anion Gap 10.6 mmol/L (10.00-18.00); BUN/Creat Ratio 30.71 Ratio (12.00-20.00); Blood Urea Nitrogen 21.5 mg/dL (9.0-27.0); Calcium 9.1 mg/dL (8.7-10.3); Carbon Dioxide 22.4 mmol/L (20.0-27.5); Non-African American GFR(CKD) 85.4 (60.0-200.0); Potassium 4.9 mmol/L (3.5-5.5)
--- NOTE | 2021-07-17 11:02 | P.PN ---
Subjective Progress Note Date: 07/17/21 - History of Present Illness This is a 75-year-old female with past medical history of lung cancer, atrial fibrillation on Eliquis, former nicotine dependence, diabetes mellitus, hyp ertension and multiple other medical issues presented to the ER status post fall with right lower extremity pain/unsure if she actually passed out. Details surrounding patient's fall, vague. Reports she is scheduled to start chemotherapy/radiation next week. Brain C-spine CT reported no acute fracture or dislocation in the cervical spine with no acute intracranial hemorrhage or midline shift. Right knee x-ray reported acute displaced comminuted fracture distal diaphysis right femur. Right hip and pelvis x-ray reported no additional acute fracture or dislocation in the pelvis or right hip. Chest x-ray reported cardiomegaly with bilateral central masslike opacities increased-left greater than right, possible neoplasm. Coronavirus PCR positive.Currently requiring 2 L nasal cannula to maintain O2 sats in the 90s. Denies chest pain, palpitations or shortness of breath. Denies lightheadedness dizziness or focal deficits. Vital signs stable. EKG reporting sinus with first-degree AV block ,moderate T- wave abnormality, anterior lateral ischemia the 3 through V6. Troponin negative 1. WBC 10.7, hemoglobin 11, platelets 186, neutrophils 9.9, INR 1.2, sodium 137, potassium 4.4, BUN 22, creatinine 0.87, blood sugars 109-172, magnesium 2, LFTs within normal limits. 07/16/21 continues on covid cocktail. significant clinical improvement. Maintaining O2 sats in the 90s on room air. Ambulating with walker. Pain controlled. Passing flatus. Denies chest pain, palpitations or shortness of breath. Afebrile. 07/17/2021 no overnight events. Denies chest pain, palpitations or shortness of breath. Vital signs stable. Pain controlled. Awaiting discharge to subacute rehab. Patient currently on Lovenox/tabs for DVT prophylaxis ;to resume her Eliquis at discharge, discussed with orthopedic PA. Objective - Vital Signs Vital signs: Vital Signs Temp 97.6 F 07/17/21 10:06 Pulse 53 L 07/17/21 10:06 Resp 15 07/17/21 05:44 BP 157/77 07/17/21 10:06 Pulse Ox 92 L 07/17/21 10:06 Intake & Output 07/16/21 07/17/21 07/17/21 18:59 06:59 18:59 Intake Total 500 222 Output Total 1000 Balance -500 222 Intake: Oral 500 222 Output: Urine 1000 Uretheral (Collado) 1000 Other: Voiding Method Indwelling Catheter # Voids 1 - Exam - Exam PHYSICAL EXAM: VITAL SIGNS: As above GENERAL: Alert and oriented 3, Sitting up in chair, no acute distress HEENT: Conjunctivae normal. eyes normal. NECK: Supple, No JVD. CARDIOVASCULAR: S1, S2 regular.irregular, positive systolic murmur RESPIRATION: Breath sounds diminished in the bases. ABDOMEN: Soft, nontender . No guarding. Positive Bowel sounds. LEGS: Right hip dressing clean dry and intact, positive PT & DP pulses. NERVOUS SYSTEM: Cranial N 2-12 grossly normal. No focal deficits. Strength and sensation grossly intact. Skin: Warm and dry, no rash - Labs CBC & Chem 7: 07/17/21 05:15 07/17/21 05:15 Labs: Abnormal Lab Results - Last 24 Hours (Table) 07/16/21 07/16/21 07/16/21 Range/Units 11:12 16:18 20:28 RBC (4.10-5.20) X 10*6/uL Hgb (12.0-15.0) g/dL Hct (37.2-46.3) % MCH (27.0-32.0) pg MCHC (32.0-37.0) g/dL RDW (11.5-14.5) % Lymphocytes # (0.90-5.00) X 10*3/uL Eosinophils # (0.04-0.35) X 10*3/uL Sodium (135-145) mmol/L BUN/Creatinine Ratio (12.00-20.00) Ratio Glucose (70-110) mg/dL POC Glucose (mg/dL) 154 H 229 H 218 H (75-99) mg/dL 07/17/21 07/17/21 07/17/21 Range/Units 05:15 05:15 06:59 RBC 3.10 L (4.10-5.20) X 10*6/uL Hgb 8.1 L (12.0-15.0) g/dL Hct 27.2 L (37.2-46.3) % MCH 26.1 L (27.0-32.0) pg MCHC 29.8 L (32.0-37.0) g/dL RDW 15.2 H (11.5-14.5) % Lymphocytes # 0.58 L (0.90-5.00) X 10*3/uL Eosinophils # 0.01 L (0.04-0.35) X 10*3/uL Sodium 133 L (135-145) mmol/L BUN/Creatinine Ratio 30.71 H (12.00-20.00) Ratio Glucose 112 H (70-110) mg/dL POC Glucose (mg/dL) 127 H (75-99) mg/dL Assessment and Plan Assessment: Acute displaced comminuted fracture distal diaphysis right femur, status post fall. Status post surgical repair and intramedullary nail fixation 07/13/21 Acute COVID-19 infection, present on admission Lung CA, scheduled to begin chemotherapy/radiation after discharge from subacute rehab Paroxysmal atrial fibrillation with RVR with history of chronic paroxysmal atrial fibrillation, cardioversion Chronic CHF with mildly reduced systolic function, worsening secondary to the above Mild acute renal failure secondary to diuresing Acute hypoxic respiratory failure secondary to the above Diabetes mellitus type 2 Moderate to severe mitral regurgitation Moderate tricuspid regurgitation Hypertension Plan: Continue on current medication regime ,monitoring and symptomatic treatmen t. Remains medically cleared for discharge. Resume Kaylah. Authorization received her subacute rehab. Discharge planning in progress to subacute rehab as per primary/orthopedic surgery. Follow-up with PCP 1 week after discharge from subacute rehab. The impression and plan of care has been dictated as directed. : I performed a history and examination of this patient, discussed the same with the dictator. I agree with the dictator's note ,documented as a scribe. Any additional findings or plans will be noted.
[2021-07-17 11:48] LABS: Glucose,Whole Blood 126 mg/dL (75-99)
--- NOTE | 2021-07-17 12:12 | P.PN ---
Subjective Progress Note Date: 07/17/21 Principal diagnosis: COVID-19 infection This is a 75-year-old female patient with past medical history of small cell carcinoma of the lung, diabetes mellitus type 2, chronic cough, chronic A. fib, hypertension, hypercholesterolemia and patient follows with Dr. Maciel from pulmonary clinic, and Dr. Oseguera from medical oncology in regards to her small cell lung cancer. Patient carries [id number] smoking history which was diagnosed in [address]-guided needle biopsy. Patient underwent radiation therapy and received chemotherapy. Patient received carboplatin, Taxol and K eytruda. Patient continues to see Dr. Gil and she is supposed to see Dr. Oliva from radiation oncology in follow-up sometime next week. Most recent CT of the chest abdomen and pelvis from 07/04/2021 showed disease progression in the anterior left perihilar and mid lung mass, patchy and nodular postobstructive changes in the left upper lobe, progression of the right peritracheal and right supraclavicular lymphadenopathy, a new right midlung pulmonary nodule which was suspicious. Left obturator telephone operator and right gluteus juliet soft tissue metastasis and a worsening right perihilar and right lower lobe consolidation. On 07/12/2021 patient was brought into the hospital by EMS with right lower extremity pain after a fall. Patient states she fell backwards on her back. She does not remember falling. Denied any loss of consciousness or head injury. She did have significant right lower extremity pain. Patient is on anticoagulation for chronic atrial fibrillation. In the ER she was noted to have a shortened right lower extremity. X-ray of the right hip and pelvis showed no acute fracture or dislocation in the pelvis, did not right distal femoral shaft fracture, closed, needed and displaced. Chest x-ray showed cardiomegaly with bilateral central masslike opacities that are stable but worrisome for neoplasm. Patient with tested for COVID-19 as part of routine screening and was found to be positive, she denies any shortness of breath, cough, no fever or chills. This was an incidental finding, she is vaccinated with [employer]j [employer] Pj vaccine and blistered with the same vaccine. She is on 2 L of oxygen pulse ox of 90%, she's been afebrile while in the hospital, she is hemodynamically stable, she has been scheduled for surgery for repair of the right femoral fracture by Dr. Friend today on 07/13/2021 The patient is seen today 07/14/2021 in follow-up on the regular medical floor. She did undergo repair of her right femur fracture last evening. Follow-up x- ray revealed placement of intramedullary too and transverse screws fixating the fracture of the distal shaft of the femur with satisfactory internal fixation. No complicating process seen. She is currently resting comfortably in bed. Awake and alert in no acute distress. She is maintaining good O2 saturations in the mid 90s on 2 L/m per nasal cannula. Afebrile. Hemodynamically stable. She is continued on cefazolin. She is continued on Decadron, vitamin supplements. Pain is well controlled with Dilaudid. Reevaluated today on 07/15/2021, patient seems to be doing well, asymptomatic, resting in bed, not in any distress, pain is under control. O2 saturation is 94% on 2 L nasal cannula On 07/16/2021 patient seen in follow-up on medical surgical floor, she sits up in the chair, she remains asymptomatic from pulmonary perspective, earlier today she was not liters of oxygen she is currently on room air, satting 92-94%, breathing comfortably, no cough, no complaints of shortness of breath, no chest discomfort. Today is postoperative day #3, status post right distal femur fract ure with intramedullary nail fixation. Patient continues on Decadron 6 mg daily, she remains on vitamins, including vitamin C, zinc and D. She is on prophylactic Lovenox On 07/17/2021 patient seen in follow-up on medical surgical floor, she is resting comfortably in bed, currently on room air with a pulse ox of 92-95%, breathing comfortably, no cough, no shortness of breath, lung sounds are ess entially clear to auscultation. Patient was found to have COVID-19 infection, however she was asymptomatic, we stopped her Decadron yesterday, patient is currently postoperative day #4 status post right distal femur fracture with intramedullary nail fixation. Patient states her right hip is a bit sore, but she has been able to ambulate, she's been up with physical therapy. No acute events overnight, currently discharge is pending to the [facility] possibly today Objective - Vital Signs Vital signs: Vital Signs Temp 97.6 F 07/17/21 10:06 Pulse 53 L 07/17/21 10:06 Resp 15 07/17/21 05:44 BP 157/77 07/17/21 10:06 Pulse Ox 92 L 07/17/21 10:06 Intake & Output 07/16/21 07/17/21 07/17/21 18:59 06:59 18:59 Intake Total 500 222 Output Total 1000 Balance -500 222 Intake: Oral 500 222 Output: Urine 1000 Uretheral (Collado) 1000 Other: Voiding Method Indwelling Catheter # Voids 1 - Exam GENERAL EXAM: Alert, very pleasant, 75-year-old white female, on room air with pulse ox of 92-94% comfortable in no apparent distress. HEAD: Normocephalic/atraumatic. EYES: Normal reaction of pupils, equal size. Conjunctiva pink, sclera white. NOSE: Clear with pink turbinates. THROAT: No erythema or exudates. NECK: No masses, no JVD, no thyroid enlargement, no adenopathy. CHEST: No chest wall deformity. Symmetrical expansion. LUNGS: Equal air entry with no crackles, wheeze, rhonchi or dullness. CVS: Irregular rate and rhythm, normal S1 and S2, no gallops, no murmurs, no rubs ABDOMEN: Soft, nontender. No hepatosplenomegaly, normal bowel sounds, no guarding or rigidity. EXTREMITIES: No clubbing, no edema, no cyanosis, 2+ pulses and upper and lower extremities. Right anterior hip incision is covered with surgical dressing, and there is right knee incision covered with a larger dressing MUSCULOSKELETAL: Muscle strength and tone normal. SPINE: No scoliosis or deformity SKIN: No rashes CENTRAL NERVOUS SYSTEM: Alert and oriented -3. No focal deficits, tone is normal in all 4 extremities. PSYCHIATRIC: Alert and oriented -3. Appropriate affect. Intact judgment and insight. - Labs CBC & Chem 7: 07/17/21 05:15 07/17/21 05:15 Labs: Abnormal Lab Results - Last 24 Hours (Table) 07/16/21 07/16/21 07/17/21 Range/Units 16:18 20:28 05:15 RBC 3.10 L (4.10-5.20) X 10*6/uL Hgb 8.1 L (12.0-15.0) g/dL Hct 27.2 L (37.2-46.3) % MCH 26.1 L (27.0-32.0) pg MCHC 29.8 L (32.0-37.0) g/dL RDW 15.2 H (11.5-14.5) % Lymphocytes # 0.58 L (0.90-5.00) X 10*3/uL Eosinophils # 0.01 L (0.04-0.35) X 10*3/uL Sodium (135-145) mmol/L BUN/Creatinine Ratio (12.00-20.00) Ratio Glucose (70-110) mg/dL POC Glucose (mg/dL) 229 H 218 H (75-99) mg/dL 07/17/21 07/17/21 07/17/21 Range/Units 05:15 06:59 11:47 RBC (4.10-5.20) X 10*6/uL Hgb (12.0-15.0) g/dL Hct (37.2-46.3) % MCH (27.0-32.0) pg MCHC (32.0-37.0) g/dL RDW (11.5-14.5) % Lymphocytes # (0.90-5.00) X 10*3/uL Eosinophils # (0.04-0.35) X 10*3/uL Sodium 133 L (135-145) mmol/L BUN/Creatinine Ratio 30.71 H (12.00-20.00) Ratio Glucose 112 H (70-110) mg/dL POC Glucose (mg/dL) 127 H 126 H (75-99) mg/dL Assessment and Plan Plan: Assessment: #1. Acute COVID-19 infection, an incidental finding, patient is asymptomatic and this was discovered as part of routine screening process. The length of COVID-19 infection is unknown, patient is currently on 2 L of oxygen, she is on Decadron 6 mg daily, she is not a candidate for Remdesivir due to unknown length of Time of her infection #2. Acute right femoral comminuted and displaced fracture related to a fall, status post surgical repair and intramedullary nail fixation on 07/13/2021 #3. History of small cell carcinoma of the lung, initially diagnosed in 2019, status post chemotherapy, radiation, and immunotherapy, with most recent CT scan of the chest abdomen and pelvis showing evidence of disease progression. Patient follows with Dr. Gil and Dr. Oliva #4. History of nonischemic cardiomyopathy with EF of 35% #5. History of paroxysmal atrial fibrillation on Eliquis #6. Hypertension #7. Diabetes mellitus #8. Former nicotine dependence Plan: Patient is doing well, no dyspnea, no hypoxia, no pulmonary symptoms Continue encouraging deep breathing and coughing We stop the Decadron yesterday Continue prophylactic anticoagulation Patient is participating with physical therapy, has been ambulating She is awaiting a transfer to the [facility] Stable for discharge from pulmonary perspective I performed a history & physical examination of the patient and discussed their management with my nurse practitioner, Emily Avila. I reviewed the nurse practitioner's note and agree with the documented findings and plan of care. Lung sounds are positive for diffuse wheezes throughout the lung zamora. The findings and the impression was discussed with the patient. I attest to the documentation by the nurse practitioner. Time with Patient: Less than 30
--- NOTE | 2021-07-17 13:22 | P.DS ---
Providers Date of admission: 07/12/21 18:21 Expected date of discharge: 07/17/21 Attending physician: Pablo Friend, Consults: 07/12/21 18:22 Consult Physician Routine Consulting Provider: Francisco Ramirez Consult Reason/Comments: medical clearance Do you want consulting provider notified?: Yes 07/13/21 07:47 Consult Physician Urgent Consulting Provider: Joanna Gil Consult Reason/Comments: pt with current lung ca, pt admitted with right femur fracture, sx today Do you want consulting provider notified?: Yes 07/13/21 15:04 Consult Physician Routine Consulting Provider: Dawit Gomez Consult Reason/Comments: Abn.cxr,covid, hx lung ca Do you want consulting provider notified?: Yes Primary care physician: Francisco Ramirez Hospital Course: Date of admission: 07/13/2021 Date of discharge: 07/17/2021 Admission diagnosis: Right distal femur fracture Discharge diagnosis: Same Attending physician: Dr. Friend Surgical procedures: Retrograde intramedullary nail fixation right distal femur fracture Brief history: Patient is a 75-year-old female with a history of right distal fe mur fracture status post fall. At this point patient has failed conservative treatment measures and has opted to proceed with a elective retrograde IM nail fixation right distal femur fracture. Hospital course: Details of patient's surgery can be found in operative report. Patient tolerated the procedure well and was subsequently transported to orthopedic floor. Patient's orthopeidc and medical care was provided daily. Patient had daily laboratory tests performed for evaluation of overall blood counts. Patient had daily physical therapy to include strengthening range of motion as well as education with walker ambulation. Patient was treated with Lovenox for their postoperative DVT prophylaxis during their inpatient stay. Patient was noted to have a relatively uneventful postoperative course. Patient reported satisfactory pain control with oral pain medications by postoperative day 4. Patient showed satisfactory progress with physical therapy. Patient moved steadily through the program and had no difficulty meeting the goals by postoperative day 4. Given patient's otherwise satisfactory course and having met physical therapy goals, plan is to discharge patient to rehab on postoperative day 4. Discharge condition/disposition: Patient will be discharged to rehab in stable condition. Discharge medications: Instructions are given on resumption of patient's normal daily medications per primary care recommendation, in addition patient will be prescribed with Rogers 5 mg/325 mg; Flexeril; patient to resume eliquis. Discharge instructions: 1. Wound care and infection precautions, keep incision dry and covered while showering, no lotions, creams, moisturizers. No soaking, tubs, pools, hottubs. Do not scrub over the incision. 2. Weight-bear 50% on the right lower extremity with knee immobilizer while up and about with walker / cane until follow-up. 3. Ice and elevate when necessary. Do not exceed 20 minutes per hour with ice pack. 4. Utilize compression sleeve until seen at first follow up appointment. 5. Pain meds and anticoagulants per prescription. 6. Pain medication has potential to cause constipation. Increase oral fluid and fiber intake. Contact primary care provider if you have not had a bowel movement within 48 hours after discharge 7. No anti-inflammatory medication until discussed at first post operative visit, this including Motrin, Aleve, Mobic, Diclofenac. 8. Follow up in office at [address] Pablo Friend 9. Follow up with your primary care doctor 7-10 days after discharge. 10. Contact [facility] with any questions, . Keep incision clean, dry, intact. While showering, cover incision with Saran wrap. Follow up in office in 2 weeks Medications: Rogers 5 mg/325 mg; Flexeril; patient to resume eliquis. Assessment: distal femur fracture Procedures: Retrograde intramedullary nail fixation right distal femur fracture Patient Condition at Discharge: Good Plan - Discharge Summary Discharge Rx Participant: No New Discharge Prescriptions: New INSULIN LISPRO (HumaLOG) [humaLOG] 0 unit SQ ACHS #10 ml cefaDROXiL [Duricef] 500 mg PO Q12HR 5 Days #10 cap Cyclobenzaprine [Flexeril] 10 mg PO BID #24 tab dexAMETHasone ORAL [Hexadrol] 6 mg PO DAILY 6 Days #18 tab Zinc Sulfate [Orazinc] 220 mg PO DAILY #30 cap Pantoprazole [Protonix] 40 mg PO AC-BRKFST tab Ascorbic Acid [Vitamin C] 500 mg PO BID #60 tab HYDROcodone/APAP 5-325MG [Rogers 5-325] 1 tab PO Q6HR PRN #28 tab PRN Reason: Pain Continue Fenofibrate 160 mg PO DAILY metFORMIN HCL [Glucophage] 500 mg PO PC-SUPPER Simvastatin [Zocor] 20 mg PO HS Apixaban [Eliquis] 5 mg PO BID 30 Days #60 tab Metoprolol Tartrate [Lopressor] 37.5 mg PO TID Cholecalciferol [Vitamin D3 (125 Mcg = 5000 Iu)] 125 mcg PO DAILY Furosemide [Lasix] 20 mg PO DAILY lisinopriL [Zestril] 20 mg PO HS Spironolactone 12.5 mg PO DAILY Amiodarone [Cordarone] 200 mg PO DAILY No Action HYDROcodone/APAP 7.5-325MG [Rogers 7.5-325] 1 tab PO Q6HR PRN PRN Reason: Pain Discharge Medication List Fenofibrate 160 mg PO DAILY 06/30/19 [History] metFORMIN HCL [Glucophage] 500 mg PO PC-SUPPER 06/30/19 [History] Simvastatin [Zocor] 20 mg PO HS 07/13/19 [History] Apixaban [Eliquis] 5 mg PO BID 30 Days #60 tab 05/29/20 [Rx] Metoprolol Tartrate [Lopressor] 37.5 mg PO TID 09/21/20 [History] Amiodarone [Cordarone] 200 mg PO DAILY 07/12/21 [History] Cholecalciferol [Vitamin D3 (125 Mcg = 5000 Iu)] 125 mcg PO DAILY 07/12/21 [History] Furosemide [Lasix] 20 mg PO DAILY 07/12/21 [History] HYDROcodone/APAP 7.5-325MG [Rogers 7.5-325] 1 tab PO Q6HR PRN 07/12/21 [History] Spironolactone 12.5 mg PO DAILY 07/12/21 [History] lisinopriL [Zestril] 20 mg PO HS 07/12/21 [History] Ascorbic Acid [Vitamin C] 500 mg PO BID #60 tab 07/16/21 [Rx] INSULIN LISPRO (HumaLOG) [humaLOG] 0 unit SQ ACHS #10 ml 07/16/21 [Rx] Pantoprazole [Protonix] 40 mg PO AC-BRKFST tab 07/16/21 [Rx] Zinc Sulfate [Orazinc] 220 mg PO DAILY #30 cap 07/16/21 [Rx] dexAMETHasone ORAL [Hexadrol] 6 mg PO DAILY 6 Days #18 tab 07/16/21 [Rx] Cyclobenzaprine [Flexeril] 10 mg PO BID #24 tab 07/17/21 [Rx] HYDROcodone/APAP 5-325MG [Rogers 5-325] 1 tab PO Q6HR PRN #28 tab 07/17/21 [Rx] cefaDROXiL [Duricef] 500 mg PO Q12HR 5 Days #10 cap 07/17/21 [Rx] Follow up Appointment(s)/Referral(s): Benedicto Bearden MD [STAFF PHYSICIAN] - 1 Week Francisco aRmirez DO [Primary Care Provider] - 1 Week (After DC from subacute rehab) [facility], [NON-STAFF] - As Needed Activity/Diet/Wound Care/Special Instructions: ECF: CBC,BMP in 3 days Scheduled for US guided LN biopsy 07/24/21 9AM at [facility] Discharge instructions: 1. Wound care and infection precautions, keep incision dry and covered while showering, no lotions, creams, moisturizers. No soaking, tubs, pools, hottubs. Do not scrub over the incision. 2. Weight-bear 50% on the right lower extremity with knee immobilizer while up and about with walker / cane until follow-up. 3. Ice and elevate when necessary. Do not exceed 20 minutes per hour with ice pack. 4. Utilize compression sleeve until seen at first follow up appointment. 5. Pain meds and anticoagulants per prescription. 6. Pain medication has potential to cause constipation. Increase oral fluid and fiber intake. Contact primary care provider if you have not had a bowel movement within 48 hours after discharge 7. No anti-inflammatory medication until discussed at first post operative visit, this including Motrin, Aleve, Mobic, Diclofenac. 8. Follow up in office at [address] Pablo Friend 9. Follow up with your primary care doctor 7-10 days after discharge. 10. Contact [facility] with any questions, . Keep incision clean, dry, intact. While showering, cover incision with Saran wrap. Follow up in office in 2 weeks Medications: Rogers 5 mg/325 mg; Flexeril; patient to resume eliquis. Discharge Disposition: TRANSFER TO SNF/ECF Care Plan Goals (MU): Collado catheter catheter discontinued at 13:49.
[2021-07-17 14:32] VITALS: BP 162/69; PULSE 79; TEMP 97.5
--- NOTE | 2021-07-17 14:42 | P.PN ---
Subjective Progress Note Date: 07/17/21 Principal diagnosis: distal femur fracture, S/P Orthopedic surgical repair In f/u pt doing fairly well. No acute c/o. She is going to rehab. Objective - Vital Signs Vital signs: Vital Signs Temp 97.5 F L 07/17/21 14:12 Pulse 79 07/17/21 14:12 Resp 15 07/17/21 05:44 BP 162/69 07/17/21 14:12 Pulse Ox 94 L 07/17/21 14:12 Intake & Output 07/16/21 07/17/21 07/17/21 18:59 06:59 18:59 Intake Total 500 222 Output Total 1000 Balance -500 222 Intake: Oral 500 222 Output: Urine 1000 Uretheral (Collado) 1000 Other: Voiding Method Indwelling Catheter # Voids 1 - Constitutional General appearance: Present: average body habitus, cooperative, no acute distress - EENT Eyes: Present: anicteric sclerae, EOMI ENT: Present: hearing grossly normal - Respiratory Details: resp even and unlabored - Integumentary Integumentary: Present: normal - Neurologic Neurologic: Present: CNII-XII intact - Musculoskeletal Musculoskeletal: Present: generalized weakness - Psychiatric Psychiatric: Present: A&O x's 3, appropriate affect, intact judgment & insight - Labs CBC & Chem 7: 07/17/21 05:15 07/17/21 05:15 Labs: Abnormal Lab Results - Last 24 Hours (Table) 07/16/21 07/16/21 07/17/21 Range/Units 16:18 20:28 05:15 RBC 3.10 L (4.10-5.20) X 10*6/uL Hgb 8.1 L (12.0-15.0) g/dL Hct 27.2 L (37.2-46.3) % MCH 26.1 L (27.0-32.0) pg MCHC 29.8 L (32.0-37.0) g/dL RDW 15.2 H (11.5-14.5) % Lymphocytes # 0.58 L (0.90-5.00) X 10*3/uL Eosinophils # 0.01 L (0.04-0.35) X 10*3/uL Sodium (135-145) mmol/L BUN/Creatinine Ratio (12.00-20.00) Ratio Glucose (70-110) mg/dL POC Glucose (mg/dL) 229 H 218 H (75-99) mg/dL 07/17/21 07/17/21 07/17/21 Range/Units 05:15 06:59 11:47 RBC (4.10-5.20) X 10*6/uL Hgb (12.0-15.0) g/dL Hct (37.2-46.3) % MCH (27.0-32.0) pg MCHC (32.0-37.0) g/dL RDW (11.5-14.5) % Lymphocytes # (0.90-5.00) X 10*3/uL Eosinophils # (0.04-0.35) X 10*3/uL Sodium 133 L (135-145) mmol/L BUN/Creatinine Ratio 30.71 H (12.00-20.00) Ratio Glucose 112 H (70-110) mg/dL POC Glucose (mg/dL) 127 H 126 H (75-99) mg/dL Assessment and Plan (1) Femur fracture Narrative/Plan: S/P surgical repair. Pending pathology. Current Visit: Yes Status: Acute Priority: High Code(s): S72.90XA - UNSP FRACTURE OF UNSP FEMUR, INIT ENCNTR FOR CLOSED FRACTURE SNOMED Code(s): 06311657 (2) COVID-19 Narrative/Plan: Tx per Pulmonary Current Visit: Yes Status: Acute Priority: High Code(s): U07.1 - COVID-19 SNOMED Code(s): 284005353 (3) Squamous cell lung cancer Current Visit: Yes Status: Chronic Priority: High Code(s): C34.90 - MALIGNANT NEOPLASM OF UNSP PART OF UNSP BRONCHUS OR LUNG SNOMED Code(s): 567072500 (4) Small cell lung cancer Current Visit: Yes Status: Chronic Priority: Medium Code(s): C34.90 - MALIGNANT NEOPLASM OF UNSP PART OF UNSP BRONCHUS OR LUNG SNOMED Code(s): 414335198 Plan: Start palliative XRT in the near future. Rad Onc awaiting path from femur and DC from rehab. Please keep appt for scheduled supraclavicular biopsy. Or, reschedule it if biopsy has to changed. Pending path for treatment recommendations
--- NOTE | 2021-07-17 15:28 | P.PN ---
Subjective Progress Note Date: 07/17/21 Principal diagnosis: Right distal femoral shaft fracture Patient was seen at bedside this morning resting sitting up in bed. Patient says she did get up with assistance this morning. She says she feels better than she did yesterday as far as pain control. Patient says she was happy she was able to do a little more with PT today. Patient denies chest pain, fever, shortness of breath, nausea, vomiting, change in vision, loss of bowel/bladder control. Objective - Vital Signs Vital signs: Vital Signs Temp 97.6 F 07/17/21 10:06 Pulse 53 L 07/17/21 10:06 Resp 15 07/17/21 05:44 BP 157/77 07/17/21 10:06 Pulse Ox 92 L 07/17/21 10:06 Intake & Output 07/16/21 07/17/21 07/17/21 18:59 06:59 18:59 Intake Total 500 222 Output Total 1000 Balance -500 222 Intake: Oral 500 222 Output: Urine 1000 Uretheral (Collado) 1000 Other: Voiding Method Indwelling Catheter # Voids 1 - Exam Deniz bandage is present over the right leg. Adaptic, 4 x 4's, ABDs and cast padding is present beneath the Deniz bandage. Moderate TTP just proximal to the right knee along the fracture site. Nontender to palpation throughout rest exam. Sensation is equal, symmetric, bilateral intact throughout the lower extremities. Neurovascular status intact. DP pulses intact bilaterally. Feet are lukewarm to touch. Patient is able to fully dorsi and plantarflex the right ankle and wiggle toes in the right foot. Patient can elevate right leg somewhat off of bed while sitting. 3+/5 resisted right ankle dorsi/plantar flexion. 3+/5 in resisted right knee flexion/extension right hip flexion/extension. Negative Homans bilaterally - Labs CBC & Chem 7: 07/17/21 05:15 07/17/21 05:15 Labs: Abnormal Lab Results - Last 24 Hours (Table) 07/16/21 07/16/21 07/17/21 Range/Units 16:18 20:28 05:15 RBC 3.10 L (4.10-5.20) X 10*6/uL Hgb 8.1 L (12.0-15.0) g/dL Hct 27.2 L (37.2-46.3) % MCH 26.1 L (27.0-32.0) pg MCHC 29.8 L (32.0-37.0) g/dL RDW 15.2 H (11.5-14.5) % Lymphocytes # 0.58 L (0.90-5.00) X 10*3/uL Eosinophils # 0.01 L (0.04-0.35) X 10*3/uL Sodium (135-145) mmol/L BUN/Creatinine Ratio (12.00-20.00) Ratio Glucose (70-110) mg/dL POC Glucose (mg/dL) 229 H 218 H (75-99) mg/dL 07/17/21 07/17/21 07/17/21 Range/Units 05:15 06:59 11:47 RBC (4.10-5.20) X 10*6/uL Hgb (12.0-15.0) g/dL Hct (37.2-46.3) % MCH (27.0-32.0) pg MCHC (32.0-37.0) g/dL RDW (11.5-14.5) % Lymphocytes # (0.90-5.00) X 10*3/uL Eosinophils # (0.04-0.35) X 10*3/uL Sodium 133 L (135-145) mmol/L BUN/Creatinine Ratio 30.71 H (12.00-20.00) Ratio Glucose 112 H (70-110) mg/dL POC Glucose (mg/dL) 127 H 126 H (75-99) mg/dL Assessment and Plan Assessment: Right distal femoral shaft fracture Postoperative day #4 status post retrograde intramedullary femoral nail fixation Plan: 1. Right distal femoral shaft fracture - surgery performed 07/13/2021 - retrograde intramedullary femoral nail fixation. Patient stable at bedside this morning. Recommend use of knee immobilizer when patient is ambulating. 50% weightbearing with a walker and assistance on right leg in knee immobilizer. While in bed, we do encourage patient to flex and extend at the right leg to limit stiffness. discharge to rehab today 2. Appreciate medical, cardiology and pulmonology management 3. Pain management - [place]; Tylenol; Flexeril 4. GI prophylaxis - Protonix 5. DVT prophylaxis - patient may resume Eliquis 6. PT/OT - 50% weightbearing right leg with walker and assistance. Recommend use of knee immobilizer while ambulating. Weightbearing as tolerated other extremities 7. Encourage incentive spirometer use 8. Discharge planning - to rehab today Time with Patient: Less than 30
[2021-07-17 16:58] LABS: Glucose,Whole Blood 139 mg/dL (75-99)
[2021-07-17] MEDS: metFORMIN 500 MG TAB PO SCH (17:39)
[2021-07-17] MEDS ORDERED: APIXABAN 5 MG TAB PO SCH (21:00)
--- NOTE | 2021-07-19 07:49 | P.OP ---
Date of Procedure: 07/13/21 Preoperative Diagnosis: 1. Right distal femoral shaft fracture, comminuted, rotated, shortened. 2. S/p ffs 3. Complex medical patient Postoperative Diagnosis: 1. Right distal femoral shaft fracture, comminuted, rotated, shortened. 2. S/p ffs 3. Complex medical patient Procedure(s) Performed: 1. Mini open reduction with retrograde intramedullary nail fixation Right femur Implants: Suggs and nephew retrograde IM femoral nail Anesthesia: GETA Surgeon: Pablo Friend Mainstreaming Facilitator #1: James Rueda (Was present and assisted with opening reduction hardw are placement and closure) Estimated Blood Loss (ml): 200 IV fluids (ml): 2,500 Urine output (ml): 210 Pathology: none sent Condition: stable Disposition: PACU Indications for Procedure: Orthopedic Surgery Risk Review Piedad Moses is a 75-year-old female presenting for evaluation of sudden onset right lower extremity pain, inability to ambulate after fall from standing at home. It was my pleasure to have seen and examined Piedad Moses. In our visit today we have had a chance to go over subjective complaints, physical examination findings and treatments including the natural course history without intervention and various interventional options. Her imaging demonstrates right distal femur shaft fracture comminuted rotated and shortened. On physical exam, Piedad Moses demonstrates pain with motion of right lower extremity, which is NV intact at this time. I have explained to the patient that this fracture needs stabilization. Based on the patients imaging, physical exam, and the rapid progression and disabling nature of her symptoms, at this time I recommend surgery in the form or a: Intramedullary nail fixation right femur I discussed the risk and benefits of this procedure at length with Piedad Moses. Questions were invited and answered, and the patient wishes to proceed as outlined below. Currently, I am recommendin. Intramedullary nail fixation right femur 2. Review of surgical risks and benefits as well as an educational packet on the proposed surgical procedure. Risks: All surgical procedures come with inherent risks, including those related to positioning, anesthesia, intraoperative findings, and postoperative complications. It is important to understand that surgery does not come with any guarantee of a successful outcome as complications and adverse events are always possible. The patient was given a handout discussing the surgical procedure and risks associated with the intervention, both of which were discussed with the patient. These risks include but are not limited to the following: - Experiencing same, different or even worse symptoms compared to before surgery. - Requiring further surgery or other forms of treatment presently or at some time in the future . - On an extreme but fortunately relatively rare basis severe complication such as blindness, stroke, heart attack, temporary and/or permanent nerve injury, paralysis, coma, or may occur, sometimes without known explanation. - Surgical complications may include but are not limited to risk of infection, fluid accumulation in the surgical dissection site, including a seroma or hematoma, that requires additional surgery, wound drainage, bleeding, new numbness or weakness, vision changes/loss, spinal fluid leakage, non-healing and/or infected incision, headaches, difficulty or inability to swallow, hoarseness, hemopneumothorax, pneumothorax, injury to nerves, spinal cord, blood vessels, lymphatics or other vital organs (i.e., bowel injury, injury to the great vessels); heterotopic bone formation; complications related to the hardware such as screws, rods, including misplaced hardware, device failure, hardware fracture/breakage, or hardware loosening; retained surgical instrumentations or devices and the need for further surgery. - Medical risks of the planned surgery include but are not limited to generalized Infections to the whole body or local areas outside of the surgical site (sepsis), heart attack, bleeding, anaphylaxis, meningitis, seizure, epilepsy, hearing loss, burn monreal, laceration of the head or other areas of the body, bruising, hypersensitivity of the skin, bladder over distension; allergic reaction; shoulder injury related to positioning; fat, blood and air clots to other areas of the body like heart, lungs, brain; failure of internal organs such as lungs, kidneys, liver and excessive bleeding. If blood transfusions are necessary, note that transfusions may cause intolerance reactions such as anaphylaxis or other complex reactions. Despite best efforts, the results of surgery might not heal in terms of bone, soft tissues such as skin, fascia, ligaments, and joints. [facility] has multiple operating rooms with single and overlapping rooms running daily. They currently function under the required guidelines as produced by the [employer] Committee with regards to the overlapping rooms and will continue to comply with changes to this policy as they occur. The requirements include and are complied with as follows: (1) the critical portions of the overlapping rooms will not occur at the same time, (2) the attending physician will be physically present during the critical portions of the procedure and immediately available during the entire case, and (3) a back-up attending is designated should the primary attending not be immediately available. The patient has had a chance to review all the listed information, has been given print outs detailing this information, and has had all his/her questions answered to their satisfaction. It was my pleasure to have seen and examined Piedad Moses. In our visit today we have had a chance to go over my understanding of our patient's current condition, the natural course history without intervention and various interventional options. Questions were invited and answered, and the patient wishes to proceed as outlined above. I have seen and examined the patient for 25 minutes and we have spent more than 50% of the time in repeat and detailed counseling about the patient's condition, its natural course history with out and as much as can be predicted with surgery and re-review of various surgical treatment options. In conclusion, Piedad Moses requested we proceed with the above suggested surgery and are willing to accept risks and limitations of the suggested surgery as nature of the disease process and our best attempts at treatment for the condition. Thank you again for allowing us to be part of your patient's care. Please don't hesitate to contact me if you have any further questions. Signed and authenticated by: [facility] [address] [place] [id number] Description of Procedure: The patient was seen and examined in the preoperative area. All preoperative protocols were followed. Informed consent was obtained risks and benefits of the procedure were discussed at length. Risks including bleeding infection damage to the surrounding tissue and risk of reoperation were discussed with the patient. Risk of anesthesia up to and including was a discussed with the patient. These are outlined in the risk reviewed. They were willing to accept these risks and all of the risks of surgery. The patient was given a weight- based dose of antibiotics in the form of 2 g Ancef. The patient was seen and evaluated by the anesthesia team who deemed them fit for surgery. The site was marked, the patient was willing to proceed with the procedure. The patient was transferred to the operative suite by the Department of anesthesia. There were then drifted off to sleep by the department of anesthesia and GETA anesthesia was used. Once adequate anesthesia had been obtained the patient was carefully transferred to the operative bed. All bony prominences were padded accordingly. SCDs were placed on the nonoperative lower extremities. Arms were well padded. Right leg was exposed to bump was placed in the patient's right hip she was secured to the table. Preoperative briefing was done with the operative team and everyone was ready for the procedure to start. The patients right lower extremity was then prepped and draped in the normal sterile fashion. Timeout was then performed and all parties in agreement with the procedure to be performed. Fluoroscopic imaging was used to guide close attempt at reduction of the fracture. We then proceeded with exposure. Midline skin incision was made over the superior pole to the distal pole the patella. We then performed medial arthrotomy taking care to protect the structures underneath. Once this was performed you are able to sublux the patella laterally which allowed for access to the starting point. Under AP lateral fluoroscopy we placed a pin just superior to movements outs line and in line with the femoral shaft on AP and lateral. Once it was in good position we advanced the wire. We then placed opening reamer in this area followed by a ball-tipped guidewire. We then reduced the fracture and held it reduced and placed and passed the guidewire proximally we confirmed it was in within bone throughout the femoral shaft up to the level of the little lesser trochanter. The fracture proved difficult to hold reduced closed and so a mini open incision was made on the lateral side dissection taken down to the femoral shaft where a bone hook a clamp for used to hold the fracture in position for reaming. We then performed sequential reaming until the desired with of 12.5 mm for an 11 mm nail. We then measured for the length of the nail. We then impacted the nail over the guidewire while attempting to hold the reduction of the fracture. Once the nail was in place proximally using the guide we placed one distal screw. This was then measured and placed we then performed perfect circles proximally. Skin incision was made and blunt dissection with a stat taken to the femoral shaft. We then drilled perfect circles proximally and measured for a screw the screw was then placed atraumatically. Turned attention to the remainder of the screws distally. The guide was off on its angle and so we performed perfect circles distally and were able to target the remainder of the distal screws. These were then placed atraumatically. Once all fixation place we took the knee and leg through range of motion and the fracture was stable. We then removed the guides until final fluoroscopic images. We then copiously irrigated out the knee arthrotomy as well as the remainder of the incisions. We then proceeded with closure. The knee arthrotomy and was closed with #1 Vicryl in [id number] fashion. The subcu was closed with 2-0 Vicryl and the skin closed skin aditya. The lateral mini open tensor fascia was closed with #1 Vicryl followed by 2 on the subcu tissue and aditya in the skin. The remainder of the poke hole incisions were closed with 2-0 Vicryl in the subcu and aditya in the skin. The wound was then thoroughly cleaned and dressed sterilely with Adaptic 4 x 4's and Tegaderms. The leg was then placed and a double Deniz wrap. The patient was then transferred back to their hospital bed. There were awakened by department of anesthesia having tolerated the procedure very well with no complications. The patient was then transported to the postoperative care unit in stable condition.
== END 2021-07-17 18:47 | DRG 480 ==
LOC: EC 15:18 → 4SSUR 18:21
PROVIDERS: ADMIT Orthopaedic Surgery; ATTEND Orthopaedic Surgery
PROC: 0QS806Z Reposition Right Femoral Shaft with Intramedullary Internal Fixation Device, Open Approach (ICD-10-PCS; principal; 2021-07-13 10:25)
DX: S72.301A Unspecified fracture of shaft of right femur, initial encounter for closed fracture (principal); U07.1 COVID-19; C34.90 Malignant neoplasm of unspecified part of unspecified bronchus or lung; C79.89 Secondary malignant neoplasm of other specified sites; I42.8 Other cardiomyopathies; I48.20 Chronic atrial fibrillation, unspecified; I50.22 Chronic systolic (congestive) heart failure; N17.9 Acute kidney failure, unspecified; E11.9 Type 2 diabetes mellitus without complications; E27.8 Other specified disorders of adrenal gland; E78.00 Pure hypercholesterolemia, unspecified; I08.1 Rheumatic disorders of both mitral and tricuspid valves; I11.0 Hypertensive heart disease with heart failure; I44.0 Atrioventricular block, first degree; I48.0 Paroxysmal atrial fibrillation; M51.25 Other intervertebral disc displacement, thoracolumbar region; W01.0XXA Fall on same level from slipping, tripping and stumbling without subsequent striking against object, initial encounter; Y92.009 Unspecified place in unspecified non-institutional (private) residence as the place of occurrence of the external cause; Z79.01 Long term (current) use of anticoagulants; Z92.3 Personal history of irradiation; Z92.21 Personal history of antineoplastic chemotherapy; Z90.710 Acquired absence of both cervix and uterus; Z87.891 Personal history of nicotine dependence; Z80.8 Family history of malignant neoplasm of other organs or systems; Z80.0 Family history of malignant neoplasm of digestive organs; Z79.899 Other long term (current) drug therapy; Z79.84 Long term (current) use of oral hypoglycemic drugs
CPT/HCPCS: 36415; 70450; 71045; 72125; 73502; 80048; 80053; 83735; 84484; 85025; 85610; 85730; 86850; 86900; 86901; 87635; 93005; 93306; 94760; 96374; 96376; 99285

== ENCOUNTER 2021-08-13 08:46 | Inpatient (IN) | payer MEDICARE ==
[2021-08-13] MEDS ORDERED: DILTIAZEM DRIP BOLUS FROM BAG 1 MG SOLN IV ONE (09:09)
--- NOTE | 2021-08-13 09:09 | ED ---
General Adult HPI - General Chief complaint: Arrhythmia/Palpitations Stated complaint: Afib Time Seen by Provider: 08/13/21 08:52 Source: patient, EMS Mode of arrival: EMS Limitations: no limitations - History of Present Illness Initial comments: Dictation was produced using [employer] dictation software. please excuse any grammatical, word or spelling errors. Chief Complaint: 75-year-old female presents to the emergency department for episode of palpitations shortness of breath or chest pain History of Present Illness: 75-year-old female she recently had femur surgery. Patient states she was at home when she woke up with chest pain, shortness of breath and dyspnea. Patient is a long-standing history of atrial fibrillation. She takes take anticoagulation medications. EMS reports that en route patient had heart rates that were jumping up between the 100 and 170. Since pain in emergency department patient reports that her symptoms are significantly improved. She feels at baseline. She states that the chest pain she experience was sharp and radiated to the back. Nonpleuritic. She was also short of breath this occurred. The ROS documented in this emergency department record has been reviewed and confirmed by me. Those systems with pertinent positive or negative responses have been documented in the HPI. All other systems are other negative and/or noncontributory. PHYSICAL EXAM: General Impression: Alert and oriented x3, not in acute distress, rate on the telemetry monitor was anywhere between 70 and 90 HEENT: Normocephalic atraumatic, extra-ocular movements intact, pupils equal and reactive to light bilaterally, mucous membranes moist. Cardiovascular: Heart regular rate and rhythm Chest: Able to complete full sentences, no retractions, no tachypnea Abdomen: abdomen soft, non-tender, non-distended, no organomegaly Musculoskeletal: Pulses present and equal in all extremities, no peripheral edema Motor: no focal deficits noted Neurological: CN II-XII grossly intact, no focal motor or sensory deficits noted Skin: Intact with no visualized rashes Psych: Normal affect and mood ED course: 75-year-old is assisted emergency department for chest pain, palpitations or shortness of breath. She states she feels at baseline upon my evaluation at the bedside upon initial evaluation. Vital signs upon arrival shows heart rate of 136, respiratory rate of 25 with a pulse ox of 91% on room air. Upon my evaluation patient did not have any chest pain or shortness of breath. Laboratory evaluation obtained. Leukocytosis of 11.3. Rest of CBC within acceptable limits. Metabolic panel is unremarkable. D-dimer 8.52. Metabolic panel shows sodium 132. Rest metabolic panel is within acceptable limits. Troponin is 0.031. Patient does not have history of elevated troponin according to chart review. Brain natruretic peptide is normal. Chest x-ray unremarkable. CT angios of the chest showed no pulmonary embolism but there does appear to be an effusion with consolidation the perihilar region. Cancer findings appear to be slightly worse. There is fighting suspicious for pneumonia. Patient started on antibiotics. Given Levaquin. Patient be admitted to Dr. Francisco Ramirez. Patient's heart rate is improved blood pressure stable. Pulmonology and oncology will be consulted. cardiology also consulted. EKG interpretation: Ventricular rate 154, A. fib with rapid ventricular rate, dressing 83, QTC 332. no QTC prolongation, no ST or T-wave changes noted. EKG consistent with A. fib with rapid ventricular rate. No findings to suggest cardiac ischemia or infarction. - Related Data Home Medications Medication Instructions Recorded Confirmed Fenofibrate 160 mg PO DAILY 06/30/19 08/13/21 metFORMIN HCL [Glucophage] 500 mg PO PC-SUPPER 06/30/19 08/13/21 Simvastatin [Zocor] 20 mg PO HS 07/13/19 08/13/21 Metoprolol Tartrate [Lopressor] 37.5 mg PO TID 09/21/20 08/13/21 Amiodarone [Cordarone] 200 mg PO DAILY 07/12/21 08/13/21 Cholecalciferol [Vitamin D3 (125 125 mcg PO DAILY 07/12/21 08/13/21 Mcg = 5000 Iu)] Furosemide [Lasix] 20 mg PO DAILY 07/12/21 08/13/21 HYDROcodone/APAP 7.5-325MG [Ackley 1 tab PO Q4-6H PRN 07/12/21 08/13/21 7.5-325] Spironolactone 12.5 mg PO DAILY 07/12/21 08/13/21 lisinopriL [Zestril] 20 mg PO HS 07/12/21 08/13/21 Previous Rx's Medication Instructions Recorded Apixaban [Eliquis] 5 mg PO BID 30 Days #60 tab 05/29/20 Allergies Allergy/AdvReac Type Severity Reaction Status Date / Time morphine AdvReac Severe Nausea & Verified 08/13/21 11:20 Vomiting cefuroxime [From Ceftin] AdvReac Unknown Nausea & Verified 08/13/21 11:20 Vomiting Sulfa (Sulfonamide AdvReac Unknown Nausea, Verified 08/13/21 11:20 Antibiotics) lightheaded Review of Systems ROS Statement: Those systems with pertinent positive or pertinent negative responses have been documented in the HPI. ROS Other: All systems not noted in ROS Statement are negative. Past Medical History Past Medical History: Atrial Fibrillation, Cancer, Diabetes Mellitus, Hypertension Additional Past Medical History / Comment(s): LUNG CA. mass left lung Jul 2021, History of Any Multi-Drug Resistant Organisms: None Reported Past Surgical History: Back Surgery, Cholecystectomy, Hysterectomy Additional Past Surgical History / Comment(s): Exploratory surgery, lung biopsy Jul 19 2019, right femur broken after fall and surgically repaired July 2021 Past Anesthesia/Blood Transfusion Reactions: No Reported Reaction Additional Past Anesthesia/Blood Transfusion Reaction / Comment(s): no previous blood transfusion Past Psychological History: No Psychological Hx Reported Smoking Status: Former smoker Past Alcohol Use History: Rare Past Drug Use History: None Reported - Past Family History Mother Family Medical History: Cancer Additional Family Medical History / Comment(s): BRAIN CANCER. Sister(s) Family Medical History: Cancer Additional Family Medical History / Comment(s): BREAST AND PANCREATIC CANCER. General Exam Limitations: no limitations Course Vital Signs 08/13/21 08/13/21 08/13/21 08:56 09:24 09:38 Temperature 99.2 F Pulse Rate 136 H 155 H 118 H Respiratory 25 H 18 18 Rate Blood Pressure 98/65 115/85 130/80 O2 Sat by Pulse 91 L 93 L 93 L Oximetry 08/13/21 08/13/21 10:00 10:58 Temperature Pulse Rate 102 H 96 Respiratory 18 18 Rate Blood Pressure 131/78 106/78 O2 Sat by Pulse 95 93 L Oximetry Medical Decision Making - Lab Data Result diagrams: 08/13/21 09:14 08/13/21 09:14 Lab Results 08/13/21 08/13/21 08/13/21 Range/Units 09:14 09:14 09:14 WBC 11.3 H (3.8-10.6) k/uL RBC 4.46 (3.80-5.40) m/uL Hgb 11.0 L (11.4-16.0) gm/dL Hct 36.3 (34.0-46.0) % MCV 81.4 D (80.0-100.0) fL MCH 24.8 L (25.0-35.0) pg MCHC 30.4 L (31.0-37.0) g/dL RDW 15.5 (11.5-15.5) % Plt Count 238 (150-450) k/uL MPV 8.3 Neutrophils % 91 % Lymphocytes % 3 % Monocytes % 5 % Eosinophils % 1 % Basophils % 0 % Neutrophils # 10.2 H (1.3-7.7) k/uL Lymphocytes # 0.3 L (1.0-4.8) k/uL Monocytes # 0.5 (0-1.0) k/uL Eosinophils # 0.1 (0-0.7) k/uL Basophils # 0.0 (0-0.2) k/uL Hypochromasia Marked PT 12.5 H (9.0-12.0) sec INR 1.2 H (<1.2) APTT 23.9 (22.0-30.0) sec D-Dimer 8.52 H (<0.60) mg/L FEU Sodium 132 L (137-145) mmol/L Potassium 3.6 (3.5-5.1) mmol/L Chloride 104 (98-107) mmol/L Carbon Dioxide 25 (22-30) mmol/L Anion Gap 3 mmol/L BUN 11 (7-17) mg/dL Creatinine 0.62 (0.52-1.04) mg/dL Est GFR (CKD-EPI)AfAm >90 (>60 ml/min/1.73 sqM) Est GFR (CKD-EPI)NonAf 89 (>60 ml/min/1.73 sqM) Glucose 125 H (74-99) mg/dL Plasma Lactic Acid Praful (0.7-2.0) mmol/L Calcium 9.9 (8.4-10.2) mg/dL Magnesium 1.6 (1.6-2.3) mg/dL Total Bilirubin 0.7 (0.2-1.3) mg/dL AST 23 (14-36) U/L ALT 11 (4-34) U/L Alkaline Phosphatase 153 H (38-126) U/L Troponin I (0.000-0.034) ng/mL NT-Pro-B Natriuret Pep pg/mL Total Protein 5.7 L (6.3-8.2) g/dL Albumin 2.6 L (3.5-5.0) g/dL 08/13/21 08/13/21 08/13/21 Range/Units 09:14 09:14 09:14 WBC (3.8-10.6) k/uL RBC (3.80-5.40) m/uL Hgb (11.4-16.0) gm/dL Hct (34.0-46.0) % MCV (80.0-100.0) fL MCH (25.0-35.0) pg MCHC (31.0-37.0) g/dL RDW (11.5-15.5) % Plt Count (150-450) k/uL MPV Neutrophils % % Lymphocytes % % Monocytes % % Eosinophils % % Basophils % % Neutrophils # (1.3-7.7) k/uL Lymphocytes # (1.0-4.8) k/uL Monocytes # (0-1.0) k/uL Eosinophils # (0-0.7) k/uL Basophils # (0-0.2) k/uL Hypochromasia PT (9.0-12.0) sec INR (<1.2) APTT (22.0-30.0) sec D-Dimer (<0.60) mg/L FEU Sodium (137-145) mmol/L Potassium (3.5-5.1) mmol/L Chloride (98-107) mmol/L Carbon Dioxide (22-30) mmol/L Anion Gap mmol/L BUN (7-17) mg/dL Creatinine (0.52-1.04) mg/dL Est GFR (CKD-EPI)AfAm (>60 ml/min/1.73 sqM) Est GFR (CKD-EPI)NonAf (>60 ml/min/1.73 sqM) Glucose (74-99) mg/dL Plasma Lactic Acid Praful 2.0 (0.7-2.0) mmol/L Calcium (8.4-10.2) mg/dL Magnesium (1.6-2.3) mg/dL Total Bilirubin (0.2-1.3) mg/dL AST (14-36) U/L ALT (4-34) U/L Alkaline Phosphatase (38-126) U/L Troponin I 0.031 (0.000-0.034) ng/mL NT-Pro-B Natriuret Pep 916 pg/mL Total Protein (6.3-8.2) g/dL Albumin (3.5-5.0) g/dL Critical Care Time Critical Care Time: Yes Total Critical Care Time: 33 Disposition Clinical Impression: Atrial fibrillation with RVR, Pneumonia, Respiratory failure Disposition: ADMITTED IP TO THIS [facility] Condition: Serious Referrals: Francisco Ramirez DO [Primary Care Provider] - 1-2 days
[2021-08-13] MEDS: DILTIAZEM 125 MG in SODIUM CHLORIDE 0.9% 100 ML IV SCH ×2 (09:36→18:50)
[2021-08-13 09:38] LABS: ALT 11 U/L (4-34); AST 23 U/L (14-36); African American GFR (CKD) >90 (>60 ml/min/1.73 sqM); Albumin 2.6 g/dL (3.5-5.0); Alkaline Phosphatase 153 U/L (38-126); Anion Gap 3 mmol/L; Blood Urea Nitrogen 11 mg/dL (7-17); Calcium 9.9 mg/dL (8.4-10.2); Carbon Dioxide 25 mmol/L (22-30); Chloride 104 mmol/L (98-107); Glucose 125 mg/dL (74-99); Magnesium 1.6 mg/dL (1.6-2.3); Non-African American GFR(CKD) 89 (>60 ml/min/1.73 sqM); Potassium 3.6 mmol/L (3.5-5.1); Sodium 132 mmol/L (137-145); Total Bilirubin 0.7 mg/dL (0.2-1.3); Total Protein 5.7 g/dL (6.3-8.2)
--- NOTE | 2021-08-13 09:39 | XR ---
EXAMINATION TYPE: XR chest 2V DATE OF EXAM: 08/13/2021 COMPARISON: Chest x-ray 07/15/2021 HISTORY: Palpitations, chest pain and shortness of breath TECHNIQUE: Frontal and lateral views of the chest are obtained. FINDINGS: Patient with previously demonstrated perihilar abnormal attenuation, there is volume loss in the right hemithorax, no pleural effusion or pneumothorax is evident. Cardiomediastinal silhouette shows a similar appearance. The aorta is dense. Postop change noted in the lumbar spine. IMPRESSION: Findings may be due to patient's known lung cancer. Difficult to exclude superimposed pn eumonia.
[2021-08-13 09:49] LABS: Basophils % (A) 0 %; Eosinophils # (A) 0.1 k/uL (0-0.7); Eosinophils % (A) 1 %; HCT 36.3 % (34.0-46.0); Hypochromasia Marked; Lymphocytes # (A) 0.3 k/uL (1.0-4.8); Lymphocytes % (A) 3 %; MCH 24.8 pg (25.0-35.0); MCHC 30.4 g/dL (31.0-37.0); Mean Platelet Volume 8.3; Monocytes # (A) 0.5 k/uL (0-1.0); Monocytes % (A) 5 %; Neutrophils # (A) 10.2 k/uL (1.3-7.7); Neutrophils % (A) 91 %; Platelet Count 238 k/uL (150-450); RBC 4.46 m/uL (3.80-5.40); RDW 15.5 % (11.5-15.5); WBC 11.3 k/uL (3.8-10.6)
[2021-08-13 09:53] LABS: MCV 81.4 fL (80.0-100.0)
[2021-08-13 10:07] LABS: INR 1.2 (<1.2); Partial Thromboplastin Time 23.9 sec (22.0-30.0); Prothrombin Time 12.5 sec (9.0-12.0)
--- NOTE | 2021-08-13 11:41 | CT ---
EXAMINATION TYPE: CT angio chest DATE OF EXAM: 08/13/2021 COMPARISON: 07/04/2021, 04/30/2021, 02/23/2021 HISTORY: 75-year-old female positive d-dimer, AFIB. History of left lung cancer with last radiation t reatment on 08/10/2021. TECHNIQUE: Contiguous axial scanning of the chest performed with IV Contrast, patient injected with 7 0 mL of Isovue 370. Coronal/sagittal MIP reconstructions performed. CT DLP: 344.9 mGycm Automated exposure control for dose reduction was used. FINDINGS: Heart borderline enlarged with small pericardial effusion measuring 8 mm thick. No flattening of the interventricular septum reflux of contrast into the hepatic veins. LAD coronary artery calcifications are present. Ectatic ascending aorta 3.8 cm. Mild atherosclerotic arch calcifications with bovine configuration to the aortic arch. Lower right paratracheal lymph node 2.0 cm versus 1.3 cm, previously. Upper right paratracheal lymph node 2.5 cm versus 1.8 cm, previously. Right supraclavicular lymph node 2.3 cm versus 1.4 cm, previously. Satisfactory opacification of the pulmonary arterial system. Enlarged caliber to the main right and l eft pulmonary arteries measuring up to 2.6 cm each suggesting underlying pulmonary hypertension. Ther e is some breathing motion limiting assessment of the lower lobes. However, no definite pulmonary emb olus is seen. Redemonstrated anterior left perihilar mass extending up into the left upper lobe. This is slightly l arger at 8.3 x 4.5 cm versus 8.2 x 2.9 cm, previously. Interval worsening throughout the right lung. New small right pleural effusion. Extensive consolidati on and volume loss within the right middle lobe is new. Scattered patchy groundglass change right upp er lobe. Progressive consolidation throughout the posterior right perihilar region extending to encase the hil um now with asymmetric somewhat masslike appearance measuring 6.4 x 6.2 cm, axial image 61. Right midlung probably nodule 1.1 cm versus 1.0 cm, previously. Visualized upper abdomen shows no gross abnormality. Bones: Moderate degenerative disc disease mid to lower thoracic spine. Pneumonic in appearance to the T2 spinous process. IMPRESSION: 1. SOME BREATHING MOTION IN THE LOWER LUNGS. NO DEFINITE PULMONARY EMBOLUS. 2. COMPARED TO 07/04/2021, THE ANTERIOR LEFT PERIHILAR AND LEFT UPPER LOBE MASS IS SLIGHTLY BULKIER AT 8.3 X 4.5 CM (VERSUS 8.2 X 2.8 CM, PREVIOUSLY). ENLARGING RIGHT PARATRACHEAL NODES MEASURING UP TO 2.5 CM (VERSUS 1.8 CM, PREVIOUSLY). RIGHT MIDLUNG PULMONARY NODULE STABLE TO SLIGHTLY LARGER AT 1.1 CM. NEW LYTIC OSSEOUS DISEASE INVOLVEMENT OF THE T2 SPINOUS PROCESS. 3. NEW SMALL RIGHT PLEURAL EFFUSION. PROGRESSIVE WORSENING AND ENLARGING CONSOLIDATION IN THE POSTERI OR RIGHT PERIHILAR REGION NOW WITH A MASSLIKE CONFIGURATION MEASURING UP TO 6.4 X 6.2 CM. CONSIDER EN DOBRONCHIAL ASSESSMENT TO EXCLUDE LOCAL RECURRENCE IF THIS REPRESENTS A SITE OF PREVIOUSLY TREATED DI SEASE. 4. NEW VOLUME LOSS AND CONSOLIDATION, LIKELY PNEUMONIA RIGHT MIDDLE LOBE. ADDITIONAL PATCHY GROUNDGLA SS INFILTRATES THROUGHOUT THE RIGHT UPPER LOBE AND PORTIONS OF THE RIGHT LOWER LOBE.
[2021-08-13] MEDS ORDERED: LEVOFLOXACIN 750MG-D5W PMX 750 MG in DEXTROSE/WATER 1 150ML.BAG IVPB STA (12:03)
[2021-08-13] MEDS ORDERED: ONDANSETRON 4 MG/2 ML VIAL IVP PRN (12:26)
[2021-08-13] MEDS ORDERED: NALOXONE 0.4 MG/ML 1 ML VIAL IV PRN (12:26)
[2021-08-13] MEDS: SODIUM CHLORIDE 0.9% 1,000 ML IV SCH ×2 (13:36→22:33)
[2021-08-13] MEDS: ACETAMINOPHEN TAB 325 MG TAB PO PRN (16:58)
[2021-08-13 17:24] LABS: Glucose,Whole Blood 97 mg/dL (75-99)
--- NOTE | 2021-08-13 17:31 | P.CNPUL ---
History of Present Illness Consult date: 08/13/21 Reason for consult: dyspnea History of present illness: 75-year-old female patient came into the emergency department because of shortness of breath and chest pain and palpitations. The patient woke up at home having increased shortness of breath and dyspnea. Note that the patient has undergone a recent femur surgery for a right distal femoral shaft fracture and this was a comminuted fracture and this surgery was done on 07/19/2021. At that time, the patient had a fall and she sustained a fracture to her right femur. Noted the patient also has history of small cell lung cancer, advanced and progressive and the patient had an incidental COVID 19 infection during her earlier hospitalization in July 2021. She is known to have nonischemic cardiomyopathy with impaired ejection fraction of 35%. She has paroxysmal atrial fibrillation maintained on long-term anticoagulation. She has hypertension, diabetes mellitus and she is a former smoker. EMS found this patient having tachycardia and a heart rate was ranging between 101 170. The patient came into the ED and the patient had a pulse ox of 91% on room air oxygen. She was having some shortness of breath. EKG showed atrial fibrillation with rapid ventricular response. The patient also had a CT angiogram in the ED that was consistent with underlying small cell lung cancer. The patient had perihilar and left upper lobe masses noted were bulkier measuring 8.3 x 4.5 cm in size and the patient also had an enlarging right paratracheal nodes measuring up to 2.5 cm in size and right midlung pulmonary nodule, stable in addition to new lytic bone disease involving the T2 spinous process. There was also new small right-sided pleural effusion, progressive worsening and enlargement of the consolidation in the posterior right hilar lesion with a masslike configuration measuring 6.4 x 6 cm in size with possibly some endobronchial extension. There was also a new volume loss and consolidation in the right middle lobe in addition to patchy groundglass pulmonary infiltrates and a right upper lobe and portions of the right lower lobe. Based on all this, the patient was started on Cardizem drip for rate control and currently she is running at 10 mg an hour. She is on normal saline at the rate of 130s is an hour. Note that the patient has history of atrial fibrillation. She has been receiving amiodarone 200 mg by mouth on a daily basis in combination with metoprolol 37.5 mg by mouth 3 times a day. The patient is also on long-term and accommodation with Eliquis 5 mg by mouth twice a day. Review of Systems Constitutional: Denies chills, Denies fever, difficulty with mobility secondary to recent right hip fracture Eyes: denies blurred vision, denies pain Ears, nose, mouth and throat: Denies headache, Denies sore throat Cardiovascular: Denies chest pain, increased palpitation, increased shortness of breath, increased age and fibrillation, Respiratory: Denies cough, yet the patient endorses to be more short of breath Gastrointestinal: Denies abdominal pain, Denies diarrhea, Denies nausea, Denies vomiting Genitourinary: Denies dysuria, Denies hematuria Musculoskeletal: Denies myalgias Musculoskeletal: right: hip pain Integumentary: Denies pruritus, Denies rash Neurological: Denies numbness, Denies weakness Psychiatric: Denies anxiety, Denies depression Endocrine: Denies fatigue, Denies weight change Past Medical History Past Medical History: Atrial Fibrillation, Cancer, Heart Failure, Diabetes Mellitus, Hyperlipidemia, Hypertension, Osteoarthritis (OA), Pneumonia Additional Past Medical History / Comment(s): 07/12/21 R femur fracture with surgery, small cell Lung cancer bilaterally/chemo and now radiation, Afib RVR, NIDDM type II, chronic chf, mitral/tricuspid regurgitation. History of Any Multi-Drug Resistant Organisms: None Reported Past Surgical History: Appendectomy, Back Surgery, Cholecystectomy, Hysterectomy, Orthopedic Surgery, Pacemaker Additional Past Surgical History / Comment(s): 07/2021 R femur IM too, bronchoscopies/biopsies, TEEs/cardioversions, low back surgery, R wrist carpal tunnel release, R carpal tunnel release, colonoscopy, bilateral cataract surgery/lens implants. Past Anesthesia/Blood Transfusion Reactions: No Reported Reaction Additional Past Anesthesia/Blood Transfusion Reaction / Comment(s): no previous blood transfusion Smoking Status: Former smoker - Past Family History Mother Family Medical History: Cancer Additional Family Medical History / Comment(s): BRAIN CANCER. Sister(s) Family Medical History: Cancer Additional Family Medical History / Comment(s): BREAST AND PANCREATIC CANCER. Medications and Allergies Home Medications Medication Instructions Recorded Confirmed Type Fenofibrate 160 mg PO DAILY 06/30/19 08/13/21 History metFORMIN HCL [Glucophage] 500 mg PO PC-SUPPER 06/30/19 08/13/21 History Simvastatin [Zocor] 20 mg PO HS 07/13/19 08/13/21 History Apixaban [Eliquis] 5 mg PO BID 30 Days #60 tab 05/29/20 08/13/21 Rx Metoprolol Tartrate [Lopressor] 37.5 mg PO TID 09/21/20 08/13/21 History Amiodarone [Cordarone] 200 mg PO DAILY 07/12/21 08/13/21 History Cholecalciferol [Vitamin D3 (125 125 mcg PO DAILY 07/12/21 08/13/21 History Mcg = 5000 Iu)] Furosemide [Lasix] 20 mg PO DAILY 07/12/21 08/13/21 History HYDROcodone/APAP 7.5-325MG [[place] 1 tab PO Q4-6H PRN 07/12/21 08/13/21 History 7.5-325] Spironolactone 12.5 mg PO DAILY 07/12/21 08/13/21 History lisinopriL [Zestril] 20 mg PO HS 07/12/21 08/13/21 History Allergies Allergy/AdvReac Type Severity Reaction Status Date / Time morphine AdvReac Severe Nausea & Verified 08/13/21 11:20 Vomiting cefuroxime [From Ceftin] AdvReac Unknown Nausea & Verified 08/13/21 11:20 Vomiting Sulfa (Sulfonamide AdvReac Unknown Nausea, Verified 08/13/21 11:20 Antibiotics) lightheaded Physical Exam Vitals: Vital Signs Temp Pulse Resp BP Pulse Ox 08/13/21 13:38 114 H 18 106/69 95 08/13/21 10:58 96 18 106/78 93 L 08/13/21 10:00 102 H 18 131/78 95 08/13/21 09:38 118 H 18 130/80 93 L 08/13/21 09:24 155 H 18 115/85 93 L 08/13/21 08:56 99.2 F 136 H 25 H 98/65 91 L Intake and Output 08/13/21 08/13/21 08/13/21 06:59 14:59 22:59 Other: Weight 81.647 kg 81.647 kg GENERAL EXAM: Alert, very pleasant, 75-year-old white female, on 2 L of oxygen and pulse ox of 98%, comfortable in no apparent distress. HEAD: Normocephalic/atraumatic. EYES: Normal reaction of pupils, equal size. Conjunctiva pink, sclera white. NOSE: Clear with pink turbinates. THROAT: No erythema or exudates. NECK: No masses, no JVD, no thyroid enlargement, no adenopathy. CHEST: No chest wall deformity. Symmetrical expansion. LUNGS: Equal air entry with no crackles, wheeze, rhonchi or dullness. CVS: Irregular rate and rhythm, normal S1 and S2, no gallops, no murmurs, no rubs ABDOMEN: Soft, nontender. No hepatosplenomegaly, normal bowel sounds, no guarding or rigidity. EXTREMITIES: No clubbing, no edema, no cyanosis, 2+ pulses and upper and lower extremities. Right leg is shortened it's in the traction, painful the hip MUSCULOSKELETAL: Muscle strength and tone normal. SPINE: No scoliosis or deformity SKIN: No rashes CENTRAL NERVOUS SYSTEM: Alert and oriented -3. No focal deficits, tone is normal in all 4 extremities. PSYCHIATRIC: Alert and oriented -3. Appropriate affect. Intact judgment and insight. Results - Laboratory Findings CBC and BMP: 08/13/21 09:14 08/13/21 09:14 PT/INR, D-dimer PT 12.5 sec (9.0-12.0) H 08/13/21 09:14 INR 1.2 (<1.2) H 08/13/21 09:14 D-Dimer 8.52 mg/L FEU (<0.60) H 08/13/21 09:14 Abnormal lab findings: Abnormal Labs 08/13/21 08/13/21 08/13/21 09:14 09:14 09:14 WBC 11.3 H Hgb 11.0 L MCH 24.8 L MCHC 30.4 L Neutrophils # 10.2 H Lymphocytes # 0.3 L PT 12.5 H INR 1.2 H D-Dimer 8.52 H Sodium 132 L Glucose 125 H Alkaline Phosphatase 153 H Total Protein 5.7 L Albumin 2.6 L Coronavirus (PCR) 08/13/21 13:18 WBC Hgb MCH MCHC Neutrophils # Lymphocytes # PT INR D-Dimer Sodium Glucose Alkaline Phosphatase Total Protein Albumin Coronavirus (PCR) Detected A - Diagnostic Findings Chest x-ray: image reviewed CT scan - chest: image reviewed Assessment and Plan Plan: 1 chronic atrial fibrillation with rapid ventricular response at a time of adm ission, currently on Cardizem drip at 10 mg an hour. The patient mechanical combination of metoprolol and amiodarone on outpatient basis in addition to Eliquis his anticoagulant. 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 Based on the CAT scan findings, there is interval progression of the hilar masses bilaterally in addition to the lymphadenopathy and the patient has a evidence of skeletal metastases level of T2. Noted the patient has received chemotherapy, radiation therapy and immunotherapy for oncology and radiation oncology. She is under the care of Dr. Gil and Dr. 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 Of significance is development of a lytic lesion at the level of T2 spinous process in addition to a small right- sided pleural effusion and enlarging perihilar right and left masslike lesions consistent with small cell lung cancer and possible some endobronchial extension at the level of the right mainstem Possibility of a postobstructive right lower lobe pneumonia cannot be completely excluded as the patient has developed a small right-sided pleural effusion and some limited groundglass changes in the right lung base along with some worsening masslike consolidation in the right lung base. I would suggest covering this patient with empiric antibiotics with IV Levaquin and clindamycin. Check pro calcitonin level Carries a very poor prognosis.
[2021-08-13] MEDS: metFORMIN 500 MG TAB PO SCH (18:50)
[2021-08-13] MEDS: CLINDAMYCIN 300 MG in DEXTROSE 5% IN WATER 50 ML IVPB SCH ×4 (18:51→23:41)
[2021-08-13 20:02] LABS: Glucose,Whole Blood 146 mg/dL (75-99)
[2021-08-13] MEDS: APIXABAN 5 MG TAB PO SCH (20:15)
[2021-08-13] MEDS: AMIODARONE 200 MG TAB PO SCH (20:15)
[2021-08-13] MEDS: METOPROLOL TARTRATE 25 MG TAB PO SCH (20:15)
[2021-08-13] MEDS: ATORVASTATIN 10 MG TAB PO SCH (20:15)
[2021-08-13] MEDS: lisinopriL 20 MG TAB PO SCH (20:15)
[2021-08-13] MEDS: HYDROcodone/APAP 7.5-325MG 1 EACH TAB PO PRN (22:33)
[2021-08-14 06:01] LABS: Glucose,Whole Blood 104 mg/dL (75-99)
[2021-08-14] MEDS: HYDROcodone/APAP 7.5-325MG 1 EACH TAB PO PRN (06:23)
[2021-08-14] MEDS: CLINDAMYCIN 300 MG in DEXTROSE 5% IN WATER 50 ML IVPB SCH ×6 (06:23→18:06)
[2021-08-14] MEDS: SODIUM CHLORIDE 0.9% 1,000 ML IV SCH ×4 (06:24→22:37)
[2021-08-14] MEDS ORDERED: AMIODARONE 200 MG TAB PO SCH (09:00)
[2021-08-14] MEDS: CHOLECALCIFEROL 125 MCG (5000 IU) TABLET PO SCH (09:17)
[2021-08-14] MEDS: APIXABAN 5 MG TAB PO SCH ×2 (09:17→18:28)
[2021-08-14] MEDS: SPIRONOLACTONE 25 MG TAB PO SCH (09:18)
[2021-08-14] MEDS: FENOFIBRATE 160 MG TAB PO SCH (09:18)
[2021-08-14] MEDS: AMIODARONE 200 MG TAB PO SCH ×2 (09:18→21:04)
[2021-08-14] MEDS: FUROSEMIDE 20 MG TAB PO SCH (09:19)
[2021-08-14] MEDS: METOPROLOL TARTRATE 25 MG TAB PO SCH (09:19)
[2021-08-14] MEDS ORDERED: METOPROLOL TARTRATE 12.5 MG TAB PO STA (10:43)
--- NOTE | 2021-08-14 11:32 | P.CRDCN ---
History of Present Illness History of present illness: This is a 75-year-old female with a past medical history significant for nonischemic cardiomyopathy, paroxysmal atrial fibrillation on anticoagulation with Eliquis, hypertension, type 2 diabetes, former nicotine dependence, and metastatic small cell lung cancer, covid-19 in 07/2021, recent femur surgery for a right distal femoral shaft fracture done on 07/19/2021. Patient follows in the office with Dr. Dee. We have been asked to see the patient in consultation for atrial fibrillation with RVR. Patient presented to the emergency department with complaints of shortness of breath. The patient woke up at home having increased shortness of breath and dyspnea. She denies any chest pain or palpitations. She denies any symptoms of orthopnea or PND. On admission patient found atrial fibrillation with ventricular response. Patient was started on a Cardizem drip and converted to sinus mechanism. DIAGNOSTICS -EKG atrial fibrillation with rapid ventricular response, heart rate 154, no acute ST and T wave abnormalities. -Chest CT no evidence of pulmonary embolism, anterior left perihilar and left upper lobe mass was slightly pulled clear, enlarging right paratracheal nodes, right mid lung pulmonary nodule stable to slightly larger, new lytic processes disease involving the T2 spinous process, new small right pleural effusion. Progressive worsening of large consolidation -Patient maintained sinus mechanism with heart rate in the 60s to 70s -Laboratory data: WBC 11.3, hemoglobin 11, platelets 238, d-dimer 8.5, INR 1.2, sodium 132, potassium 3.6, BUN 11, serum creatinine 0.6, troponin negative, proBNP 916 -Current home cardiac medications include simvastatin 20 mg at night, fenofibrate 160 mg daily, lisinopril 20 mg at night, spironolactone 12.5 mg daily, metoprolol tartrate 37.5 mg 3 times a day, Lasix 20 mg daily, Eliquis 5 mg twice a day, and amiodarone 200 mg daily -Echocardiogram completed 07/13/2021 revealed ejection fraction 55-60%, right ventricle mildly enlarged, mild mitral regurgitation, mild tricuspid regurgitation REVIEW OF SYSTEMS: At the time of my exam: CONSTITUTIONAL: Denies fever or chills. HEENT: Denies blurred vision, vision changes, or eye pain. Denies hemoptysis CARDIOVASCULAR: Denies chest pain. Denies orthopnea. Denies PND. Denies palpitations RESPIRATORY: Reports shortness of breath. And dyspnea GASTROINTESTINAL: Denies abdominal pain. Denies nausea or vomiting. HEMATOLOGIC: Denies bleeding disorders. GENITOURINARY: Denies any blood in urine. SKIN: Denies pruitis. Denies rash. PHYSICAL EXAM: VITAL SIGNS: Reviewed. GENERAL: Well-developed in no acute distress. HEENT: Head is normocephalic. Pupils are equal, round. Sclerae anicteric. Mucous membranes of the mouth are moist. Neck supple. No JVD LUNGS: Respirations even and unlabored. Lungs diminished to auscultation bilaterally. HEART: Regular rate and rhythm. S1 and S2 heard. ABDOMEN: Soft. Nondistended. Nontender. EXTREMITIES: No clubbing or cyanosis. Peripheral pulses intact. No lower extremity edema NEUROLOGIC: Awake and alert. Oriented x 3. ASSESSMENT: Paroxysmal atrial fibrillation with RVR, on anticoagulation outpatient with Eliquis, maintaining sinus mechanism Metastatic small cell lung cancer with skeletal involvement,CAT scan findings, there is interval progression of disease History of Hypertension Hyperlipidemia Type 2 Diabetes Former nicotine dependence History of nonischemic cardiomyopathy, EF 35% in 2019, with recovery of LV function Recent femur surgery for a right distal femoral shaft fracture done on 07/19/2021 PLAN: Stop Cardizem drip Increase metoprolol to 50mg TID Monitor on cardiac telemetry Continue Eliquis No need to repeat echocardiogram at this time with recent 07/19/21. Further recommendations based on clinical course Nurse practitioner note has been reviewed by physician. Signing provider agrees with the documented findings, assessment, and plan of care. Past Medical History Past Medical History: Atrial Fibrillation, Cancer, Heart Failure, Diabetes Mellitus, Hyperlipidemia, Hypertension, Osteoarthritis (OA), Pneumonia Additional Past Medical History / Comment(s): 07/12/21 R femur fracture with floridalma dede, small cell Lung cancer bilaterally/chemo and now radiation, Afib RVR, NIDDM type II, chronic chf, mitral/tricuspid regurgitation. History of Any Multi-Drug Resistant Organisms: None Reported Past Surgical History: Appendectomy, Back Surgery, Cholecystectomy, Hysterectomy, Orthopedic Surgery, Pacemaker Additional Past Surgical History / Comment(s): 07/2021 R femur IM too, bronchoscopies/biopsies, TEEs/cardioversions, low back surgery, R wrist carpal tunnel release, R carpal tunnel release, colonoscopy, bilateral cataract surgery/lens implants. Past Anesthesia/Blood Transfusion Reactions: No Reported Reaction Additional Past Anesthesia/Blood Transfusion Reaction / Comment(s): no previous blood transfusion Smoking Status: Former smoker - Past Family History Mother Family Medical History: Cancer Additional Family Medical History / Comment(s): BRAIN CANCER. Sister(s) Family Medical History: Cancer Additional Family Medical History / Comment(s): BREAST AND PANCREATIC CANCER. Medications and Allergies Home Medications Medication Instructions Recorded Confirmed Type Fenofibrate 160 mg PO DAILY 06/30/19 08/13/21 History metFORMIN HCL [Glucophage] 500 mg PO PC-SUPPER 06/30/19 08/13/21 History Simvastatin [Zocor] 20 mg PO HS 07/13/19 08/13/21 History Apixaban [Eliquis] 5 mg PO BID 30 Days #60 tab 05/29/20 08/13/21 Rx Metoprolol Tartrate [Lopressor] 37.5 mg PO TID 09/21/20 08/13/21 History Amiodarone [Cordarone] 200 mg PO DAILY 07/12/21 08/13/21 History Cholecalciferol [Vitamin D3 (125 125 mcg PO DAILY 07/12/21 08/13/21 History Mcg = 5000 Iu)] Furosemide [Lasix] 20 mg PO DAILY 07/12/21 08/13/21 History HYDROcodone/APAP 7.5-325MG [[place] 1 tab PO Q4-6H PRN 07/12/21 08/13/21 History 7.5-325] Spironolactone 12.5 mg PO DAILY 07/12/21 08/13/21 History lisinopriL [Zestril] 20 mg PO HS 07/12/21 08/13/21 History Allergies Allergy/AdvReac Type Severity Reaction Status Date / Time morphine AdvReac Severe Nausea & Verified 08/13/21 11:20 Vomiting cefuroxime [From Ceftin] AdvReac Unknown Nausea & Verified 08/13/21 11:20 Vomiting Sulfa (Sulfonamide AdvReac Unknown Nausea, Verified 08/13/21 11:20 Antibiotics) lightheaded Physical Exam Vitals: Vital Signs Temp Pulse Pulse Resp BP BP Pulse Ox 08/14/21 04:00 98.2 F 62 18 107/55 96 08/13/21 23:35 98.4 F 89 18 91/60 95 08/13/21 20:00 98.2 F 115 H 18 114/72 90 L 08/13/21 16:52 98.1 F 104 H 18 146/66 96 08/13/21 16:15 98.4 F 112 H 18 95/81 94 L 08/13/21 13:38 114 H 18 106/69 95 08/13/21 10:58 96 18 106/78 93 L 08/13/21 10:00 102 H 18 131/78 95 08/13/21 09:38 118 H 18 130/80 93 L 08/13/21 09:24 155 H 18 115/85 93 L 08/13/21 08:56 99.2 F 136 H 25 H 98/65 91 L Intake and Output 08/13/21 08/13/21 08/14/21 14:59 22:59 06:59 Intake Total 472.333 Balance 472.333 Intake: IV 10 Invasive Line 1 10 Intake, IV Titration 92.333 Amount Diltiazem 125 mg In 92.333 Sodium Chloride 0.9% 100 ml @ 10 MG/HR 10 mls/hr IV .[id number] [facility] Rx#: [id number] Oral 370 Other: Voiding Method Toilet Toilet # Voids 1 Weight 81.647 kg 81.647 kg Results 08/13/21 09:14 08/13/21 09:14 Cardiac Enzymes 08/13/21 08/13/21 Range/Units 09:14 09:14 AST 23 (14-36) U/L Troponin I 0.031 (0.000-0.034) ng/mL Coagulation 08/13/21 Range/Units 09:14 PT 12.5 H (9.0-12.0) sec APTT 23.9 (22.0-30.0) sec CBC 08/13/21 Range/Units 09:14 WBC 11.3 H (3.8-10.6) k/uL RBC 4.46 (3.80-5.40) m/uL Hgb 11.0 L (11.4-16.0) gm/dL Hct 36.3 (34.0-46.0) % Plt Count 238 (150-450) k/uL Comprehensive Metabolic Panel 08/13/21 Range/Units 09:14 Sodium 132 L (137-145) mmol/L Potassium 3.6 (3.5-5.1) mmol/L Chloride 104 (98-107) mmol/L Carbon Dioxide 25 (22-30) mmol/L BUN 11 (7-17) mg/dL Creatinine 0.62 (0.52-1.04) mg/dL Glucose 125 H (74-99) mg/dL Calcium 9.9 (8.4-10.2) mg/dL AST 23 (14-36) U/L ALT 11 (4-34) U/L Alkaline Phosphatase 153 H (38-126) U/L Total Protein 5.7 L (6.3-8.2) g/dL Albumin 2.6 L (3.5-5.0) g/dL Current Medications Generic Name Dose Route Start Last Admin Trade Name Freq PRN Reason Stop Dose Admin Acetaminophen 650 mg 08/13/21 12:26 08/13/21 16:58 Acetaminophen Tab 325 Mg Tab PO 650 mg Q6HR PRN Administration Mild Pain or Fever > 100.5 Hydrocodone Bitart/Acetaminophen 1 each 08/13/21 16:41 08/14/21 06:23 Hydrocodone/Apap 7.5-325mg 1 Each Tab PO 1 each Q4H PRN Administration Moderate Pain Amiodarone HCl 200 mg 08/13/21 21:00 08/13/21 20:15 Amiodarone 200 Mg Tab PO 200 mg BID ELSIE Administration Apixaban 5 mg 08/13/21 21:00 08/13/21 20:15 Apixaban 5 Mg Tab PO 5 mg BID ELSIE Administration Protocol Atorvastatin Calcium 10 mg 08/13/21 21:00 08/13/21 20:15 Atorvastatin 10 Mg Tab PO 10 mg HS ELSIE Administration Cholecalciferol 125 mcg 08/14/21 09:00 Cholecalciferol 125 Mcg (5000 Iu) Tablet PO DAILY ELSIE Fenofibrate 160 mg 08/14/21 09:00 Fenofibrate 160 Mg Tab PO DAILY ELSIE Furosemide 20 mg 08/14/21 09:00 Furosemide 20 Mg Tab PO DAILY [facility] Diltiazem HCl 125 mg/ Sodium 125 mls @ 10 mls/hr 08/13/21 09:15 08/13/21 18:50 Chloride IV 10 mg/hr .[id number] ELSIE 10 mls/hr Administration 10 MG/HR Sodium Chloride 1,000 mls @ 130 mls/hr 08/13/21 12:30 08/14/21 06:24 Saline 0.9% IV 130 mls/hr .[id number] ELSIE Administration Levofloxacin 750 mg/ IV 150 mls @ 100 mls/hr 08/14/21 12:00 Solution IVPB Q24H ELSIE Protocol Clindamycin Phosphate 300 mg/ 52 mls @ 50 mls/hr 08/13/21 18:00 08/14/21 06:23 Dextrose/Water IVPB 50 mls/hr Q6HR ELSIE Administration Protocol Lisinopril 20 mg 08/13/21 21:00 08/13/21 20:15 Lisinopril 20 Mg Tab PO 20 mg HS ELSIE Administration Metformin HCl 500 mg 08/13/21 18:30 08/13/21 18:50 Metformin 500 Mg Tab PO Not Given PC-SUPPER [facility] Metoprolol Tartrate 37.5 mg 08/13/21 22:00 08/13/21 20:15 Metoprolol Tartrate 25 Mg Tab PO 37.5 mg TID ELSIE Administration Naloxone HCl 0.2 mg 08/13/21 12:26 Naloxone 0.4 Mg/Ml 1 Ml Vial IV Q2M PRN Opioid Reversal Ondansetron HCl 4 mg 08/13/21 12:26 Ondansetron 4 Mg/2 Ml Vial IVP Q8HR PRN Nausea And Vomiting Spironolactone 12.5 mg 08/14/21 09:00 Spironolactone 25 Mg Tab PO DAILY [facility] Intake and Output 08/13/21 08/13/21 08/14/21 14:59 22:59 06:59 Intake Total 472.333 Balance 472.333 Intake: IV 10 Invasive Line 1 10 Intake, IV Titration 92.333 Amount Diltiazem 125 mg In 92.333 Sodium Chloride 0.9% 100 ml @ 10 MG/HR 10 mls/hr IV .[id number] [facility] Rx#: [id number] Oral 370 Other: Voiding Method Toilet Toilet # Voids 1 Weight 81.647 kg 81.647 kg Patient Weight 08/14/21 06:59 Weight 81.647 kg 08/13/21 09:14 08/13/21 09:14
[2021-08-14 11:41] LABS: Glucose,Whole Blood 148 mg/dL (75-99)
[2021-08-14] MEDS: predniSONE 20 MG TAB PO SCH (12:18)
[2021-08-14] MEDS: ALBUTEROL HFA INHALER INHALATION SCH ×3 (12:26→21:09)
--- NOTE | 2021-08-14 13:06 | P.CONS ---
History of Present Illness - Reason for Consult Consult date: 08/14/21 NSCLC Requesting physician: Seamus James - Chief Complaint palpitations and SOB - History of Present Illness Pt came to ER with c/o palpitations and sudden onset SOB, went to be fine and woke up feeling terrible. Denied fever, chills, chest or back pain, N,V, abd pain, bloating, acute changes in bowel or bladder habits. She again tested positive for covid (?colonized), she is on abx, her breathing is visibly labored. She stated she had not started radiation yet-confirmed that she has and only has 1 treatment left. Malignancy Hx: 05/20 presented with upper resp/"cold" symptoms. CXR revealed RLL lesion, CT chest 06/09/19 showed 2.7cm lesion in RUL, 1.6cm right hilar node and focal patchy opacity in MELISA and 1.2cm indeterminate nodule of right adrenal gland. PET scan showed significant uptake in RLL lesion, right hilar node, MELISA nodular density, negative uptake in right adrenal gland, no other disease. 07/02/19 bronchoscopy was non-diagnostic. 07/28/19 CT guided biopsy of RLL lesion was positive for small cell lung cancer, MRI brain was negative for metastatic disease. 08/18/19 she had EBUS and staging of mediastinum, the small left lung lesion at that time could not be biopsied. Carboplatin/[employer]ILY [employer] ASSISTANT started 09/01/19, had 2 cycles then XRT added with cycle#3. Completed course of XRT with 2 additional cycles of carboplatin/[employer]ILY SERVICES ASSISTANT November 2019. 02/22/20 CT chest revealed improvement in her right lung disease, however,there was increasing consolidation in MELISA. 03/10/20 PET revealed significant improvement in RLL disease however,there was progression in MELISA lesion along with suspicious left hilar and subcarinal nodes. 04/25/20 EBUS and FNA of station 7 was positive for squamous cell carcinoma. 05/15/[address] CAP revealed progression of disease in the chest. 06/13/20 carboplatin/taxol/keytruda, CT 07/18/20 showed improvement in her disease. Com pleted 4 cycles 08/22/20, cont on maintenance keytruda every 3 weeks. She did well unitl 01/20, consolidative changes in both lungs, felt to be r/t IO so this was stopped. She had PET 02/20 showing worsening disease in lt lung, mediastinal LN, rt supraclavicular LN so, 03/22 she was started on Gemzar. She had stable disease until 07/24, CT CAP showed disease progression. She had surgery for rt femoral fracture 07/24, no path sent. She had a rt buttock metastatic deposit. Pending rt supraclav LN bx-sched for 08/16 here at [facility]. She had liquid Bx in ofc, 08/06 pending results. Discussed with Rad Onc who states pt has 1 more treatment to rt hip. Review of Systems 10 point ROS is neg except as stated in HPI Past Medical History Past Medical History: Atrial Fibrillation, Cancer, Heart Failure, Diabetes Mellitus, Hyperlipidemia, Hypertension, Osteoarthritis (OA), Pneumonia Additional Past Medical History / Comment(s): 07/12/21 R femur fracture with surgery, small cell Lung cancer bilaterally/chemo and now radiation, Afib RVR, NIDDM type II, chronic chf, mitral/tricuspid regurgitation. History of Any Multi-Drug Resistant Organisms: None Reported Past Surgical History: Appendectomy, Back Surgery, Cholecystectomy, Hysterectomy, Orthopedic Surgery, Pacemaker Additional Past Surgical History / Comment(s): 07/2021 R femur IM too, bronchoscopies/biopsies, TEEs/cardioversions, low back surgery, R wrist carpal tunnel release, R carpal tunnel release, colonoscopy, bilateral cataract surgery/lens implants. Past Anesthesia/Blood Transfusion Reactions: No Reported Reaction Additional Past Anesthesia/Blood Transfusion Reaction / Comm: no previous blood transfusion Smoking Status: Former smoker - Past Family History Mother Family Medical History: Cancer Additional Family Medical History / Comment(s): BRAIN CANCER. Sister(s) Family Medical History: Cancer Additional Family Medical History / Comment(s): BREAST AND PANCREATIC CANCER. Medications and Allergies Home Medications Medication Instructions Recorded Confirmed Type Fenofibrate 160 mg PO DAILY 06/30/19 08/13/21 History metFORMIN HCL [Glucophage] 500 mg PO PC-SUPPER 06/30/19 08/13/21 History Simvastatin [Zocor] 20 mg PO HS 07/13/19 08/13/21 History Apixaban [Eliquis] 5 mg PO BID 30 Days #60 tab 05/29/20 08/13/21 Rx Metoprolol Tartrate [Lopressor] 37.5 mg PO TID 09/21/20 08/13/21 History Amiodarone [Cordarone] 200 mg PO DAILY 07/12/21 08/13/21 History Cholecalciferol [Vitamin D3 (125 125 mcg PO DAILY 07/12/21 08/13/21 History Mcg = 5000 Iu)] Furosemide [Lasix] 20 mg PO DAILY 07/12/21 08/13/21 History HYDROcodone/APAP 7.5-325MG [[place] 1 tab PO Q4-6H PRN 07/12/21 08/13/21 History 7.5-325] Spironolactone 12.5 mg PO DAILY 07/12/21 08/13/21 History lisinopriL [Zestril] 20 mg PO HS 07/12/21 08/13/21 History Allergies Allergy/AdvReac Type Severity Reaction Status Date / Time morphine AdvReac Severe Nausea & Verified 08/13/21 11:20 Vomiting cefuroxime [From Ceftin] AdvReac Unknown Nausea & Verified 08/13/21 11:20 Vomiting Sulfa (Sulfonamide AdvReac Unknown Nausea, Verified 08/13/21 11:20 Antibiotics) lightheaded Physical Exam Vitals: Vital Signs Temp Pulse Pulse Resp BP BP Pulse Ox 08/14/21 04:00 98.2 F 62 18 107/55 96 08/13/21 23:35 98.4 F 89 18 91/60 95 08/13/21 20:00 98.2 F 115 H 18 114/72 90 L 08/13/21 16:52 98.1 F 104 H 18 146/66 96 08/13/21 16:15 98.4 F 112 H 18 95/81 94 L 08/13/21 13:38 114 H 18 106/69 95 08/13/21 10:58 96 18 106/78 93 L 08/13/21 10:00 102 H 18 131/78 95 08/13/21 09:38 118 H 18 130/80 93 L 08/13/21 09:24 155 H 18 115/85 93 L 08/13/21 08:56 99.2 F 136 H 25 H 98/65 91 L Intake and Output 08/13/21 08/14/21 08/14/21 22:59 06:59 14:59 Intake Total 472.333 Balance 472.333 Intake: IV 10 Invasive Line 1 10 Intake, IV Titration 92.333 Amount Diltiazem 125 mg In 92.333 Sodium Chloride 0.9% 100 ml @ 10 MG/HR 10 mls/hr IV .[id number] [facility] Rx#: [id number] Oral 370 Other: Voiding Method Toilet Toilet # Voids 1 Weight 81.647 kg - Constitutional General appearance: average body habitus, cooperative, mild distress - EENT Eyes: anicteric sclerae, EOMI ENT: hearing grossly normal, normal oropharynx - Neck Neck: lymphadenopathy (rt supraclavicular 2.5-3cm hard, fixed LN) - Respiratory on O2, mild resp distress with speaking Respiratory: bilateral: diminished - Cardiovascular Rhythm: regular Heart sounds: normal: S1, S2 Abnormal Heart Sounds: no systolic murmur, no diastolic murmur, no rub, no S3 Gallop, no S4 Gallop, no click, no other leg Peripheral Edema: bilateral: None - Gastrointestinal General gastrointestinal: no absent bowel sounds, no decreased bowel sounds, no distended, no hepatomegaly, no hyperactive bowel sounds, normal bowel sounds, no organomegaly, no rigid, no scaphoid, soft, no splenomegaly, no tenderness, no umbilical hernia, no ventral hernia - Integumentary Integumentary: normal - Neurologic Neurologic: CNII-XII intact - Musculoskeletal rt leg in brace s/p recent surgery for femur fracture Musculoskeletal: generalized weakness, strength equal bilaterally - Psychiatric Psychiatric: A&O x's 3, appropriate affect, intact judgment & insight Results CBC & Chem 7: 08/13/21 09:14 08/13/21 09:14 Labs: Abnormal Lab Results - Last 24 Hours (Table) 08/13/21 08/13/21 08/13/21 Range/Units 09:14 09:14 09:14 WBC 11.3 H (3.8-10.6) k/uL Hgb 11.0 L (11.4-16.0) gm/dL MCH 24.8 L (25.0-35.0) pg MCHC 30.4 L (31.0-37.0) g/dL Neutrophils # 10.2 H (1.3-7.7) k/uL Lymphocytes # 0.3 L (1.0-4.8) k/uL PT 12.5 H (9.0-12.0) sec INR 1.2 H (<1.2) D-Dimer 8.52 H (<0.60) mg/L FEU Sodium 132 L (137-145) mmol/L Glucose 125 H (74-99) mg/dL POC Glucose (mg/dL) (75-99) mg/dL Alkaline Phosphatase 153 H (38-126) U/L Total Protein 5.7 L (6.3-8.2) g/dL Albumin 2.6 L (3.5-5.0) g/dL Procalcitonin (0.02-0.09) ng/mL Coronavirus (PCR) (Not Detectd) 08/13/21 08/13/21 08/13/21 Range/Units 09:14 13:18 20:01 WBC (3.8-10.6) k/uL Hgb (11.4-16.0) gm/dL MCH (25.0-35.0) pg MCHC (31.0-37.0) g/dL Neutrophils # (1.3-7.7) k/uL Lymphocytes # (1.0-4.8) k/uL PT (9.0-12.0) sec INR (<1.2) D-Dimer (<0.60) mg/L FEU Sodium (137-145) mmol/L Glucose (74-99) mg/dL POC Glucose (mg/dL) 146 H (75-99) mg/dL Alkaline Phosphatase (38-126) U/L Total Protein (6.3-8.2) g/dL Albumin (3.5-5.0) g/dL Procalcitonin 0.18 H (0.02-0.09) ng/mL Coronavirus (PCR) Detected A (Not Detectd) 08/14/21 Range/Units 05:59 WBC (3.8-10.6) k/uL Hgb (11.4-16.0) gm/dL MCH (25.0-35.0) pg MCHC (31.0-37.0) g/dL Neutrophils # (1.3-7.7) k/uL Lymphocytes # (1.0-4.8) k/uL PT (9.0-12.0) sec INR (<1.2) D-Dimer (<0.60) mg/L FEU Sodium (137-145) mmol/L Glucose (74-99) mg/dL POC Glucose (mg/dL) 104 H (75-99) mg/dL Alkaline Phosphatase (38-126) U/L Total Protein (6.3-8.2) g/dL Albumin (3.5-5.0) g/dL Procalcitonin (0.02-0.09) ng/mL Coronavirus (PCR) (Not Detectd) Chest x-ray: report reviewed CT scan - chest: report reviewed Assessment and Plan (1) Femur fracture Narrative/Plan: S/P surgical repair with Orthopedics last mo. She reports she had completed rehab and was at home, getting around with walker. Spoke with Rad Onc, she has 1 more radiation treatment to the hip. They will see her today and see if that treatment can be given or postpone. Current Visit: No Status: Acute Priority: High Code(s): S72.90XA - UNSP FRACTURE OF UNSP FEMUR, INIT ENCNTR FOR CLOSED FRACTURE SNOMED Code(s): 90484213 (2) Small cell lung cancer Narrative/Plan: Treated definitively with chemo/XRT Current Visit: No Status: Chronic Priority: Medium Code(s): C34.90 - MALIGNANT NEOPLASM OF UNSP PART OF UNSP BRONCHUS OR LUNG SNOMED Code(s): 169623094 (3) Squamous cell lung cancer Narrative/Plan: Treated with chemo/IO Current Visit: No Status: Chronic Priority: High Code(s): C34.90 - MALIGNANT NEOPLASM OF UNSP PART OF UNSP BRONCHUS OR LUNG SNOMED Code(s): 777100627 Plan: Pt has disease progression on imaging in Jun. Pt has Hx of 2 lung primaries so, biopsy is needed to confirm primary. The LN biopsy has been delayed due to hip fracture, rehab. Now, she is inpt with resp c/o, bx sched 08/16. Have consulted IR to see biopsy can be done while inpt. attests: I have seen and examined pt, performed H&P, developed impression and plan of care, discussed with dictator. I agree with dictation, documented as a scribe.
--- NOTE | 2021-08-14 13:29 | P.PN ---
Subjective Progress Note Date: 08/14/21 75-year-old female patient came into the emergency department because of shortness of breath and chest pain and palpitations. The patient woke up at home having increased shortness of breath and dyspnea. Note that the patient has undergone a recent femur surgery for a right distal femoral shaft fracture and this was a comminuted fracture and this surgery was done on 07/19/2021. At that time, the patient had a fall and she sustained a fracture to her right femur. Noted the patient also has history of small cell lung cancer, advanced and progressive and the patient had an incidental COVID 19 infection during her earlier hospitalization in July 2021. She is known to have nonischemic cardiomyopathy with impaired ejection fraction of 35%. She has paroxysmal atrial fibrillation maintained on long-term anticoagulation. She has hypertension, diabetes mellitus and she is a former smoker. EMS found this patient having tachycardia and a heart rate was ranging between 101 170. The patient came into the ED and the patient had a pulse ox of 91% on room air oxygen. She was having some shortness of breath. EKG showed atrial fibrillation with rapid ventricular response. The patient also had a CT angiogram in the ED that was consistent with underlying small cell lung cancer. The patient had perihilar and left upper lobe masses noted were bulkier measuring 8.3 x 4.5 cm in size and the patient also had an enlarging right paratracheal nodes measuring up to 2.5 cm in size and right midlung pulmonary nodule, stable in addition to new lytic bone disease involving the T2 spinous process. There was also new small right-sided pleural effusion, progressive worsening and enlargement of the consolidation in the posterior right hilar lesion with a masslike configuration measuring 6.4 x 6 cm in size with possibly some endobronchial extension. There was also a new volume loss and conso lidation in the right middle lobe in addition to patchy groundglass pulmonary infiltrates and a right upper lobe and portions of the right lower lobe. Based on all this, the patient was started on Cardizem drip for rate control and currently she is running at 10 mg an hour. She is on normal saline at the rate of 130s is an hour. Note that the patient has history of atrial fibrillation. She has been receiving amiodarone 200 mg by mouth on a daily basis in combination with metoprolol 37.5 mg by mouth 3 times a day. The patient is also on long-term and accommodation with Eliquis 5 mg by mouth twice a day. on today's evaluation of 08/14/2021, the patient is feeling slightly better. Atrial fibrillation is under better control and the patient is currently on a combination of metoprolol and amiodarone for rate control and the patient is on long-term articulation with Eliquis. The patient is also on a prednisone burst taper starting with 40 mg of the started today. She is covered with broad- spectrum antibiotics including a combination of Levaquin and clindamycin. No significant complaints. No hemoptysis. No pleurisy.no other new complaint that was since yesterday. Objective - Vital Signs Vital signs: Vital Signs Temp 97.7 F 08/14/21 09:11 Pulse 69 08/14/21 12:14 Resp 18 08/14/21 12:14 BP 121/72 08/14/21 12:14 Pulse Ox 90 L 08/14/21 12:14 Intake & Output 08/13/21 08/14/21 08/14/21 18:59 06:59 18:59 Intake Total 462.333 10 180 Balance 462.333 10 180 Weight 81.647 kg Intake: IV 10 Invasive Line 1 10 Intake, IV Titration 92.333 Amount Diltiazem 125 mg In 92.333 Sodium Chloride 0.9% 100 ml @ 10 MG/HR 10 mls/hr IV .[id number] [facility] Rx#: [id number] Oral 370 180 Other: Voiding Method Toilet Toilet # Voids 1 - Exam GENERAL EXAM: Alert, very pleasant, 75-year-old white female, on 2 L of oxygen and pulse ox of 98%, comfortable in no apparent distress. HEAD: Normocephalic/atraumatic. EYES: Normal reaction of pupils, equal size. Conjunctiva pink, sclera white. NOSE: Clear with pink turbinates. THROAT: No erythema or exudates. NECK: No masses, no JVD, no thyroid enlargement, no adenopathy. CHEST: No chest wall deformity. Symmetrical expansion. LUNGS: Equal air entry with no crackles, wheeze, rhonchi or dullness. CVS: Irregular rate and rhythm, normal S1 and S2, no gallops, no murmurs, no rubs ABDOMEN: Soft, nontender. No hepatosplenomegaly, normal bowel sounds, no guarding or rigidity. EXTREMITIES: No clubbing, no edema, no cyanosis, 2+ pulses and upper and lower extremities. Right leg is shortened it's in the traction, painful the hip MUSCULOSKELETAL: Muscle strength and tone normal. SPINE: No scoliosis or deformity SKIN: No rashes CENTRAL NERVOUS SYSTEM: Alert and oriented -3. No focal deficits, tone is normal in all 4 extremities. PSYCHIATRIC: Alert and oriented -3. Appropriate affect. Intact judgment and insight. - Labs CBC & Chem 7: 08/13/21 09:14 08/13/21 09:14 Labs: Abnormal Lab Results - Last 24 Hours (Table) 08/13/21 08/13/21 08/13/21 Range/Units 09:14 13:18 20:01 POC Glucose (mg/dL) 146 H (75-99) mg/dL Procalcitonin 0.18 H (0.02-0.09) ng/mL Coronavirus (PCR) Detected A (Not Detectd) 08/14/21 08/14/21 Range/Units 05:59 11:40 POC Glucose (mg/dL) 104 H 148 H (75-99) mg/dL Procalcitonin (0.02-0.09) ng/mL Coronavirus (PCR) (Not Detectd) Assessment and Plan Plan: 1 chronic atrial fibrillation with rapid ventricular response ,, recovered and the patient's heart is under better control and the patient is currently on a combination of metoprolol, amiodarone and anticoagulation with Eliquis 2 metastatic small cell lung cancer with skeletal involvement. Based on the CAT scan findings, there is interval progression of the hilar masses bilaterally in addition to the lymphadenopathy and the patient has a evidence of skeletal me tastases level of T2. Noted the patient has received chemotherapy, radiation therapy and immunotherapy for oncology and radiation oncology. She is under the care of Dr. Gil and Dr. Ursula Oliva's 3 COVID 19 infection, and the patient continues to have a positive test by PCR 4 recent acute right femoral comminuted and displaced fracture related to a fall surgery was done on 07/13/2021 5 nonischemic artery myopathy with an ejection fraction of 35% 6 paroxysmal atrial fibrillation 7 hypertension 8 diabetes mellitus 9 hyperlipidemia Plan continue management of atrial fibrillation, current rate is under better control continue metoprolol 37.5 mg 3 times a day by mouth continue amiodarone 200 mg by mouth and modify the dose to twice a day Continue anticoagulation with Eliquis 5 mg by mouth twice a day CAT scan of the chest was noted and there is obvious progression of the disease in regards to the small cell lung cancer. Of significance is development of a lytic lesion at the level of T2 spinous process in addition to a small right- sided pleural effusion and enlarging perihilar right and left masslike lesions consistent with small cell lung cancer and possible some endobronchial extension at the level of the right mainstem Possibility of a postobstructive right lower lobe pneumonia cannot be completely excluded as the patient has developed a small right-sided pleural effusion and some limited groundglass changes in the right lung base along with some worsening masslike consolidation in the right lung base. I would suggest covering this patient with empiric antibiotics with IV Levaquin and clindamycin. Check pro calcitonin level was done and the level is at 0.18 low start prednisone 40 mg taper Carries a very poor prognosis.
[2021-08-14] MEDS: LEVOFLOXACIN 750MG-D5W PMX 750 MG in DEXTROSE/WATER 1 150ML.BAG IVPB SCH (13:39)
[2021-08-14 16:47] LABS: Glucose,Whole Blood 131 mg/dL (75-99)
[2021-08-14] MEDS: metFORMIN 500 MG TAB PO SCH (17:29)
[2021-08-14] MEDS: METOPROLOL TARTRATE 50 MG TAB PO SCH ×2 (17:29→21:04)
[2021-08-14 20:40] LABS: Glucose,Whole Blood 177 mg/dL (75-99)
[2021-08-14] MEDS: lisinopriL 20 MG TAB PO SCH (21:04)
[2021-08-14] MEDS: ATORVASTATIN 10 MG TAB PO SCH (21:04)
[2021-08-14] MEDS: ACETAMINOPHEN TAB 325 MG TAB PO PRN (21:04)
[2021-08-15] MEDS: CLINDAMYCIN 300 MG in DEXTROSE 5% IN WATER 50 ML IVPB SCH ×10 (00:28→23:42)
[2021-08-15] MEDS: SODIUM CHLORIDE 0.9% 1,000 ML IV SCH (05:36)
[2021-08-15 06:04] LABS: Glucose,Whole Blood 142 mg/dL (75-99)
[2021-08-15] MEDS: ALBUTEROL HFA INHALER INHALATION SCH ×4 (08:40→20:26)
[2021-08-15] MEDS: SPIRONOLACTONE 25 MG TAB PO SCH (09:00)
[2021-08-15] MEDS: AMIODARONE 200 MG TAB PO SCH ×2 (09:01→19:59)
[2021-08-15] MEDS: FUROSEMIDE 20 MG TAB PO SCH (09:01)
[2021-08-15] MEDS: CHOLECALCIFEROL 125 MCG (5000 IU) TABLET PO SCH (09:01)
[2021-08-15] MEDS: predniSONE 20 MG TAB PO SCH (09:01)
[2021-08-15] MEDS: FENOFIBRATE 160 MG TAB PO SCH (09:01)
[2021-08-15] MEDS: METOPROLOL TARTRATE 50 MG TAB PO SCH ×3 (09:01→19:59)
[2021-08-15] MEDS: APIXABAN 5 MG TAB PO SCH ×2 (09:03→19:59)
--- NOTE | 2021-08-15 11:34 | US ---
ULTRASOUND GUIDED CORE BIOPSY RIGHT SUPRACLAVICULAR MASS: CLINICAL HISTORY: Right supraclavicular mass FINDINGS: The procedure was explained to the patient. The risks, complications, benefits and alternatives were discussed and any questions were answered. Informed consent was obtained. Patient was placed supin e on the ultrasound table and prepped and draped in the usual sterile fashion. Utilizing a 18 gauge needle, 3 passes were made into the right supraclavicular mass. Patient was stable throughout the procedure. Pathology is pending. All elements of maximal barrier and sterile technique were utilized. IMPRESSION: 1. Successful ultrasound guided core biopsy right supraclavicular mass.
[2021-08-15 11:46] LABS: Glucose,Whole Blood 117 mg/dL (75-99)
[2021-08-15] MEDS ORDERED: FUROSEMIDE 10 MG/ML 4 ML VIAL IV STA (11:46)
[2021-08-15] MEDS: HYDROcodone/APAP 7.5-325MG 1 EACH TAB PO PRN ×2 (11:50→18:33)
--- NOTE | 2021-08-15 12:02 | P.PN ---
Subjective Progress Note Date: 08/15/21 Principal diagnosis: Shortness of breath, A. fib with RVR, metastatic lung cancer, COVID-19 infection 75-year-old female patient came into the emergency department because of shor tness of breath and chest pain and palpitations. The patient woke up at home having increased shortness of breath and dyspnea. Note that the patient has undergone a recent femur surgery for a right distal femoral shaft fracture and this was a comminuted fracture and this surgery was done on 07/19/2021. At that time, the patient had a fall and she sustained a fracture to her right femur. Noted the patient also has history of small cell lung cancer, advanced and progressive and the patient had an incidental COVID 19 infection during her earlier hospitalization in July 2021. She is known to have nonischemic cardiomyopathy with impaired ejection fraction of 35%. She has paroxysmal atr ial fibrillation maintained on long-term anticoagulation. She has hypertension, diabetes mellitus and she is a former smoker. EMS found this patient having tachycardia and a heart rate was ranging between 101 170. The patient came into the ED and the patient had a pulse ox of 91% on room air oxygen. She was having some shortness of breath. EKG showed atrial fibrillation with rapid ventricular response. The patient also had a CT angiogram in the ED that was consistent with underlying small cell lung cancer. The patient had perihilar and left upper lobe masses noted were bulkier measuring 8.3 x 4.5 cm in size and the patient also had an enlarging right paratracheal nodes measuring up to 2.5 cm in size and right midlung pulmonary nodule, stable in addition to new lytic bone disease involving the T2 spinous process. There was also new small right-sided pleural effusion, progressive worsening and enlargement of the consolidation in the posterior right hilar lesion with a masslike configuration measuring 6.4 x 6 cm in size with possibly some endobronchial extension. There was also a new volume loss and consolidation in the right middle lobe in addition to patchy groundglass pulmonary infiltrates and a right upper lobe and portions of the right lower lobe. Based on all this, the patient was started on Cardizem drip for rate control and currently she is running at 10 mg an hour. She is on normal saline at the rate of 130s is an hour. Note that the patient has history of atrial fibrillation. She has been receiving amiodarone 200 mg by mouth on a daily basis in combination with metoprolol 37.5 mg by mouth 3 times a day. The patient is also on long-term and accommodation with Eliquis 5 mg by mouth twice a day. on today's evaluation of 08/14/2021, the patient is feeling slightly better. Atrial fibrillation is under better control and the patient is currently on a combination of metoprolol and amiodarone for rate control and the patient is on long-term articulation with Eliquis. The patient is also on a prednisone burst taper starting with 40 mg of the started today. She is covered with broad- spectrum antibiotics including a combination of Levaquin and clindamycin. No significant complaints. No hemoptysis. No pleurisy.no other new complaint that was since yesterday. On 08/15/2021 patient seen in follow-up on selective care unit. She has just returned from left supraclavicular left nodule biopsy that was done by interventional radiology. She states her breathing is a bit raspy today, no fevers overnight, occasional cough with production of yellow-colored phlegm. She remains on empiric emetics no form of clindamycin and Levaquin. She is on prednisone 40 mg daily, her IV fluids have been hep-locked, and patient is on home dose Lasix 20 mg daily and she will receive additional dose of IV Lasix 40 mg. She has been resumed on her eliquis, for history of chronic atrial fibrillation, her rate is currently better controlled. Was no acute events overnight. Her pro-calcitonin level was negative at her 0.18. However we kept her on antibiotics in view of postobstructive pneumonia related to lung cancer Objective - Vital Signs Vital signs: Vital Signs Temp 97.9 F 08/15/21 04:00 Pulse 67 08/15/21 11:45 Resp 18 08/15/21 11:18 BP 147/82 08/15/21 11:45 Pulse Ox 94 L 08/15/21 11:45 Intake & Output 08/14/21 08/15/21 08/15/21 18:59 06:59 18:59 Intake Total 540 Output Total 300 Balance 540 -300 Intake: Oral 540 Output: Urine 300 Other: Voiding Method Toilet Toilet Toilet # Voids 1 1 - Exam GENERAL EXAM: Alert, very pleasant, 75-year-old white female, on 3 L of oxygen comfortable in no apparent distress. HEAD: Normocephalic/atraumatic. EYES: Normal reaction of pupils, equal size. Conjunctiva pink, sclera white. NOSE: Clear with pink turbinates. THROAT: No erythema or exudates. NECK: No masses, no JVD, no thyroid enlargement, no adenopathy. CHEST: No chest wall deformity. Symmetrical expansion. LUNGS: Equal air entry with diffuse rhonchi CVS: Regular rate and rhythm, normal S1 and S2, no gallops, no murmurs, no rubs ABDOMEN: Soft, nontender. No hepatosplenomegaly, normal bowel sounds, no guarding or rigidity. EXTREMITIES: No clubbing, no edema, no cyanosis, 2+ pulses and upper and lower extremities. MUSCULOSKELETAL: Muscle strength and tone normal. SPINE: No scoliosis or deformity SKIN: No rashes CENTRAL NERVOUS SYSTEM: Alert and oriented -3. No focal deficits, tone is normal in all 4 extremities. PSYCHIATRIC: Alert and oriented -3. Appropriate affect. Intact judgment and insight. - Labs CBC & Chem 7: 08/13/21 09:14 08/13/21 09:14 Labs: Abnormal Lab Results - Last 24 Hours (Table) 08/14/21 08/14/21 08/15/21 Range/Units 16:46 20:38 06:03 POC Glucose (mg/dL) 131 H 177 H 142 H (75-99) mg/dL 08/15/21 Range/Units 11:43 POC Glucose (mg/dL) 117 H (75-99) mg/dL Assessment and Plan Plan: Assessment: #1. Chronic atrial fibrillation with rapid ventricular response, currently better controlled, and patient remains on a combination of metoprolol, amiodarone, and Ahlquist #2. Metastatic small cell lung cancer with skeletal involvement. Based on the computed tomography scan findings there is interval progression of the hilar masses bilaterally in addition to the lymphadenopathy and evidence of skeletal metastasis at the level of T2. Patient has received chemotherapy, radiation therapy and immunotherapy per medical oncology and radiation oncology. Patient is under the care of Dr. Gil and Dr. David Oliva #3. Supraclavicular adenopathy on the right, and this was biopsied today by interventional radiology on 08/15/2021 #4. Recent COVID 19 infection in the beginning of July 2021, at the time this was a incidental finding, and patient was fairly asymptomatic. Patient continues to test positive for COVID-19 during this admission in July 2021 #5. Recent acute right femoral comminuted and displaced fracture related to a fall, status post surgical repair on 07/13/2021 #6. Nonischemic cardiomyopathy with an ejection fraction of 35% #7. Paroxysmal atrial fibrillation #8. Hypertension #9. Diabetes mellitus #10. Hyperlipidemia Plan: Continue oral steroids Continue inhaled bronchodilators Agree with a dose of IV Lasix Continue with maintenance dose Lasix Heart rate is better controlled Patient continues on amiodarone and beta blockers per cardiology Continue oral anticoagulation Increase activity as tolerated Patient underwent a biopsy of the right supraclavicular lymph node today by interventional radiology Patient should continue on empiric antibiotics for possibility of postobstructive pneumonia Encourage deep breathing and coughing, continue incentive spirometry use Overall prognosis is poor, and this was discussed with the patient I have personally seen and examined the patient, performed the documentation and the assessment and plan as written. Number of minutes spent on the visit: [10] Time with Patient: Less than 30 (I have personally seen and examined the patient and reviewed the documentation. I performed a joint evaluation with the nurse practitioner in this evaluation was done more than 20 minutes. I fully agree with the documentation above and the plan of care.)
--- NOTE | 2021-08-15 13:13 | P.PN ---
Subjective This is a 75-year-old female with a past medical history significant for nonischemic cardiomyopathy, paroxysmal atrial fibrillation on anticoagulation with Eliquis, hypertension, type 2 diabetes, former nicotine dependence, and metastatic small cell lung cancer, covid-19 in 07/2021, recent femur surgery for a right distal femoral shaft fracture done on 07/19/2021. Patient follows in the office with Dr. Dee. We have been asked to see the patient in consultation for atrial fibrillation with RVR. Patient presented to the emergency department [facility] complaints of shortness of breath. The patient woke up at home having increased shortness of breath and dyspnea. She denies any chest pain or palpitations. She denies any symptoms of orthopnea or PND. On admission patient found atrial fibrillation with ventricular response. Patient was starte d on a Cardizem drip and converted to sinus mechanism. DIAGNOSTICS -Echocardiogram completed 07/13/2021 revealed ejection fraction 55-60%, right ventricle mildly enlarged, mild mitral regurgitation, mild tricuspid regurgitation 08/15/2021 Patient seen and examined at bedside, no acute distress. Patient is NPO for right supraclavicular lymph node biopsy today. She denies any chest pain. She continues to have shortness of breath. She received an additional dose of IV L asix 40 mg. Telemetry reviewed patient in sinus mechanism, heart rate 60s to 70s. She is currently maintained on amiodarone 200 mg twice a day, Eliquis 5 mg twice a day, atorvastatin 10 mg nightly, Lasix 20 mg daily, lisinopril 20 mg nightly, metoprolol 50 mg 3 times a day PHYSICAL EXAM: VITAL SIGNS: Reviewed. GENERAL: Well-developed in no acute distress. HEENT: Neck supple. No JVD LUNGS: Respirations even and unlabored. Lungs diminished to auscultation bilaterally. HEART: Regular rate and rhythm. S1 and S2 heard. ABDOMEN: Soft. Nondistended. Nontender. EXTREMITIES: No clubbing or cyanosis. Peripheral pulses intact. No lower extremity edema NEUROLOGIC: Awake and alert. Oriented x 3. ASSESSMENT: Paroxysmal atrial fibrillation with RVR, on anticoagulation outpatient with Eliquis, maintaining sinus mechanism Metastatic small cell lung cancer with skeletal involvement,CAT scan findings, there is interval progression of disease History of Hypertension Hyperlipidemia Type 2 Diabetes Former nicotine dependence History of nonischemic cardiomyopathy, EF 35% in 2019, with recovery of LV function Recent femur surgery for a right distal femoral shaft fracture done on 07/19/2021 PLAN: Continue metoprolol to 50mg TID, amiodarone 200 mg twice a day, statin, Lasix, lisinopril Monitor on cardiac telemetry Continue Eliquis No need to repeat echocardiogram at this time with recent 07/19/21. Further recommendations based on clinical course Nurse practitioner note has been reviewed by physician. Signing provider agrees with the documented findings, assessment, and plan of care. Objective - Vital Signs Vital signs: Vital Signs Temp 97.9 F 08/15/21 04:00 Pulse 66 08/15/21 08:00 Resp 18 08/15/21 08:00 BP 174/75 08/15/21 08:00 Pulse Ox 97 08/15/21 08:41 Intake & Output 08/14/21 08/15/21 08/15/21 18:59 06:59 18:59 Intake Total 540 Balance 540 Intake: Oral 540 Other: Voiding Method Toilet Toilet Toilet # Voids 1 - Labs CBC & Chem 7: 08/13/21 09:14 08/13/21 09:14 Labs: Abnormal Lab Results - Last 24 Hours (Table) 08/14/21 08/14/21 08/14/21 Range/Units 11:40 16:46 20:38 POC Glucose (mg/dL) 148 H 131 H 177 H (75-99) mg/dL 08/15/21 Range/Units 06:03 POC Glucose (mg/dL) 142 H (75-99) mg/dL
--- NOTE | 2021-08-15 13:19 | P.PN ---
Subjective Progress Note Date: 08/15/21 Principal diagnosis: chest pain, SOB, dyspnea In f/u today pt is waiting for LN biopsy. She denies any acute c/o, no palpitations. Objective - Vital Signs Vital signs: Vital Signs Temp 97.9 F 08/15/21 04:00 Pulse 67 08/15/21 11:45 Resp 18 08/15/21 11:18 BP 147/82 08/15/21 11:45 Pulse Ox 94 L 08/15/21 11:45 Intake & Output 08/14/21 08/15/21 08/15/21 18:59 06:59 18:59 Intake Total 540 Output Total 300 Balance 540 -300 Intake: Oral 540 Output: Urine 300 Other: Voiding Method Toilet Toilet Toilet # Voids 1 1 - Constitutional General appearance: Present: average body habitus, cooperative, no acute distress - EENT Eyes: Present: anicteric sclerae, EOMI ENT: Present: hearing grossly normal - Respiratory Respiratory: bilateral: diminished (mildly labored) - Cardiovascular Rhythm: regular Heart sounds: normal: S1, S2 Abnormal Heart Sounds: Absent: systolic murmur, diastolic murmur, rub, S3 G allop, S4 Gallop, click, other - Gastrointestinal General gastrointestinal: Present: normal bowel sounds, soft - Neurologic Neurologic: Present: CNII-XII intact - Musculoskeletal Musculoskeletal: Present: strength equal bilaterally - Psychiatric Psychiatric: Present: A&O x's 3, appropriate affect, intact judgment & insight - Labs CBC & Chem 7: 08/13/21 09:14 08/13/21 09:14 Labs: Abnormal Lab Results - Last 24 Hours (Table) 08/14/21 08/14/21 08/15/21 Range/Units 16:46 20:38 06:03 POC Glucose (mg/dL) 131 H 177 H 142 H (75-99) mg/dL 08/15/21 Range/Units 11:43 POC Glucose (mg/dL) 117 H (75-99) mg/dL Assessment and Plan (1) Femur fracture Narrative/Plan: S/P surgical repair with Orthopedics last mo. She reports she had completed rehab and was at home, getting around with walker. Spoke with Rad Onc, she has 1 more radiation treatment to the hipcorrection, buttock, soft tissue metastatic deposit. Dr. Bearden and Dr. Oliva discussed case. Planning to discuss case with Orth opedics about the femur repair. Pt relays that she understood that the fracture was not pathologic. Will report results of inquiry. Current Visit: No Status: Acute Priority: High Code(s): S72.90XA - UNSP FRACTURE OF UNSP FEMUR, INIT ENCNTR FOR CLOSED FRACTURE SNOMED Code(s): 87065495 (2) Small cell lung cancer Narrative/Plan: Treated definitively with chemo/XRT Current Visit: No Status: Chronic Priority: Medium Code(s): C34.90 - MALIGNANT NEOPLASM OF UNSP PART OF UNSP BRONCHUS OR LUNG SNOMED Code(s): 338266664 (3) Squamous cell lung cancer Narrative/Plan: Treated with chemo/IO Current Visit: No Status: Chronic Priority: High Code(s): C34.90 - MALIGNANT NEOPLASM OF UNSP PART OF UNSP BRONCHUS OR LUNG SNOMED Code(s): 676482807 Plan: Pt has disease progression on imaging in Jun. Pt has Hx of 2 lung primaries so, biopsy is needed to confirm primary. The LN biopsy has been delayed due to hip fracture, rehab. Now, she is inpt with resp c/o, bx sched 08/16. IR agreed to biopsy while inpt, being dose today. Path pending. Treatment discussion once results available. Kaylah was held for procedure. Please resume as sOON IR feels adequate hemostasis is achieved. attests: I have seen and examined pt, performed H&P, developed impression and plan of care, discussed with dictator. I agree with dictation, documented as a scribe.
[2021-08-15] MEDS: LEVOFLOXACIN 750MG-D5W PMX 750 MG in DEXTROSE/WATER 1 150ML.BAG IVPB SCH (13:33)
[2021-08-15 16:37] LABS: Glucose,Whole Blood 213 mg/dL (75-99)
[2021-08-15] MEDS: metFORMIN 500 MG TAB PO SCH (17:34)
--- NOTE | 2021-08-15 17:39 | P.PN ---
Subjective Progress Note Date: 08/15/21 This is a 75-year-old female with past medical history of recent COVID-19 07/24 ( pathology ?),recent surgical repair and intramedullary nail fixation 07/13/21 related to displaced comminuted fracture distal diaphysis right femur, status post fall, metastatic lung cancer, paroxysmal atrial fibrillation on Eliquis, former nicotine dependence, diabetes mellitus II, hypertension and multiple other medical issues transported to the ER via EMS with complaints of sharp chest pain radiating to the back,palpitations accompanied by shortness of breath. EMS reports heart rates ranging from 100-170. O2 sat of 91% on room air on admission. Congested, reporting occasional for Dr. cough with yellow phlegm. Chest x-ray reporting volume loss in the right hemothorax, no pleural effusion or pneumothorax ,possible superimposed pneumonia. Afebrile, T-max 99.2, WBC 11.3. Hemoglobin 11, platelets 238, INR 1.2, d-dimer 8.52.Chest CTA no definite pulmonary embolus,S anterior left perihilar and left upper lobe mas s, enlarging right paratracheal nodes measuring up to 2.5 cm, right midlung pulmonary nodule stable to slightly larger, new lytic osseous disease possible of the T2 spinous process, new small right pleural effusion, progressive worsening and enlarging consolidation in the posterior right perihilar region now with a masslike configuration measuring up to 6.4 x 6.2 cm, new volume loss and consolidation likely pneumonia right middle lobe additional patchy groundglass infiltrates throughout the right upper lobe and portions of the right lower lobe. Moderate degenerative disc disease mid to lower thoracic spine, pneumonic in appearance to the T2 spinous process. Sodium 132 potassium 3.6 bicarb 25, BUN 11, creatinine 0.62. Blood sugars controlled, lactic acid 2, magnesium 1.6, alk phos 153, troponin negative 1, proBNP 916. Coronavirus detected. EKG reporting atrial fibrillation with RVR, heart rates in the 150s. 08/15/2021 maintained on amiodarone , beta jalen ,telemetry sinus rhythm . Anticoagulated on eliquis. Congested, occasional productive cough with yellow sputum. Continues on empiric antibiotics for suspected postobstructive pneumonia.NPO, supraclavicular lymph node biopsy scheduled for today.Denies chest pain, palpitations. Maintaining O2 sats in the 90s on 3 L nasal cannula. Afebrile. Objective - Vital Signs Vital signs: Vital Signs Temp 97.9 F 08/15/21 04:00 Pulse 68 08/15/21 11:03 Resp 18 08/15/21 11:03 BP 161/79 08/15/21 11:03 Pulse Ox 95 08/15/21 11:03 Intake & Output 08/14/21 08/15/21 08/15/21 18:59 06:59 18:59 Intake Total 540 Output Total 300 Balance 540 -300 Intake: Oral 540 Output: Urine 300 Other: Voiding Method Toilet Toilet Toilet # Voids 1 - Exam PHYSICAL EXAM: VITAL SIGNS: As above GENERAL: Alert and oriented 3, Sitting up in bed, no acute distress HEENT: Conjunctivae normal. eyes normal. NECK: Supple, No JVD. CARDIOVASCULAR: S1, S2 regular.irregular, positive systolic murmur RESPIRATION: Breath sounds diminished in the bases. Congested. Scattered rho nchi ABDOMEN: Soft, nontender . No guarding. Positive Bowel sounds. LEGS: Right lower extremity wearing knee immobilizer,positive PT & DP pulses. NERVOUS SYSTEM: Cranial N 2-12 grossly normal. No focal deficits. Strength and sensation grossly intact. Skin: Warm and dry, no rash - Labs CBC & Chem 7: 08/13/21 09:14 08/13/21 09:14 Labs: Abnormal Lab Results - Last 24 Hours (Table) 08/14/21 08/14/21 08/14/21 Range/Units 11:40 16:46 20:38 POC Glucose (mg/dL) 148 H 131 H 177 H (75-99) mg/dL 08/15/21 Range/Units 06:03 POC Glucose (mg/dL) 142 H (75-99) mg/dL Assessment and Plan Assessment: Chronic Paroxysmal atrial fibrillation with RVR, status post Cardizem drip Possible right lower lobe pneumonia, postobstructive, maintained on empiric antibiotics Right Supraclavicular adenopathy, biopsy pending Recent displaced comminuted fracture distal diaphysis right femur, status post fall. Status post surgical repair and intramedullary nail fixation 07/13/21 Recent COVID-19 infection, continues to test positive/ Metastatic Lung CA, status post chemotherapy, currently on radiation. Chest CTA reporting progression, skeletal. Chronic CHF with mildly reduced systolic function History of nonischemic cardiomyopathy with EF of 35% Acute hypoxic respiratory failure secondary to the above Diabetes mellitus type II Moderate to severe mitral regurgitation Moderate tricuspid regurgitation Hypertension Former nicotine dependence Plan: Continue on current medication regime ,monitoring and symptomatic treatment. DC IV fluids, Lasix IV push X1 ordered. Right supraclavicular lymph node biopsy pending per interventional radiology. Maintain empiric antibiotics for suspected postobstructive pneumonia.aggressive pulmonary toileting with incentive spirometer reinforced.Prognosis guarded given multiple complex medical issues. The impression and plan of care has been dictated as directed. : I performed a history and examination of this patient, discussed the same with the dictator. I agree with the dictator's note ,documented as a scribe. Any additional findings or plans will be noted.
[2021-08-15] MEDS: ATORVASTATIN 10 MG TAB PO SCH (19:59)
[2021-08-15] MEDS: lisinopriL 20 MG TAB PO SCH (19:59)
[2021-08-15 20:09] LABS: Glucose,Whole Blood 248 mg/dL (75-99)
[2021-08-16 05:42] LABS: Glucose,Whole Blood 114 mg/dL (75-99)
[2021-08-16] MEDS: CLINDAMYCIN 300 MG in DEXTROSE 5% IN WATER 50 ML IVPB SCH ×6 (06:29→20:59)
[2021-08-16] MEDS: HYDROcodone/APAP 7.5-325MG 1 EACH TAB PO PRN ×2 (06:30→12:34)
[2021-08-16 07:31] LABS: Basophils % (A) 0 %; Eosinophils % (A) 0 %; HCT 33.4 % (34.0-46.0); HGB 10.1 gm/dL (11.4-16.0); Hypochromasia Marked; Lymphocytes # (A) 0.5 k/uL (1.0-4.8); Lymphocytes % (A) 5 %; MCH 25.1 pg (25.0-35.0); MCHC 30.2 g/dL (31.0-37.0); Mean Platelet Volume 8.4; Monocytes # (A) 0.6 k/uL (0-1.0); Monocytes % (A) 7 %; Neutrophils # (A) 7.8 k/uL (1.3-7.7); Neutrophils % (A) 87 %; Platelet Count 224 k/uL (150-450); RBC 4.03 m/uL (3.80-5.40); RDW 15.1 % (11.5-15.5)
[2021-08-16 08:00] LABS: African American GFR (CKD) >90 (>60 ml/min/1.73 sqM); Anion Gap 3 mmol/L; Blood Urea Nitrogen 20 mg/dL (7-17); Calcium 9.6 mg/dL (8.4-10.2); Carbon Dioxide 28 mmol/L (22-30); Chloride 101 mmol/L (98-107); Glucose 89 mg/dL (74-99); Non-African American GFR(CKD) 88 (>60 ml/min/1.73 sqM); Potassium 3.7 mmol/L (3.5-5.1); Sodium 132 mmol/L (137-145)
[2021-08-16] MEDS: ALBUTEROL HFA INHALER INHALATION SCH ×4 (08:50→21:03)
[2021-08-16] MEDS: APIXABAN 5 MG TAB PO SCH ×2 (10:25→21:00)
[2021-08-16] MEDS: FUROSEMIDE 20 MG TAB PO SCH (10:25)
[2021-08-16] MEDS: CHOLECALCIFEROL 125 MCG (5000 IU) TABLET PO SCH (10:25)
[2021-08-16] MEDS: AMIODARONE 200 MG TAB PO SCH ×2 (10:25→21:00)
[2021-08-16] MEDS: FENOFIBRATE 160 MG TAB PO SCH (10:25)
[2021-08-16] MEDS: predniSONE 20 MG TAB PO SCH (10:25)
[2021-08-16] MEDS: SPIRONOLACTONE 25 MG TAB PO SCH (10:26)
[2021-08-16] MEDS: METOPROLOL TARTRATE 50 MG TAB PO SCH ×3 (10:26→21:00)
[2021-08-16] MEDS ORDERED: IPRATROPIUM-ALBUTEROL 3 ML NEB INHALATION PRN (10:58)
[2021-08-16 11:43] LABS: Glucose,Whole Blood 110 mg/dL (75-99)
[2021-08-16] MEDS: IPRATROPIUM-ALBUTEROL 3 ML NEB INHALATION SCH ×3 (11:59→21:03)
--- NOTE | 2021-08-16 13:01 | P.PN ---
Subjective Progress Note Date: 08/16/21 Principal diagnosis: Shortness of breath, A. fib with RVR, metastatic lung cancer, COVID-19 infection 75-year-old female patient came into the emergency department because of shor tness of breath and chest pain and palpitations. The patient woke up at home having increased shortness of breath and dyspnea. Note that the patient has undergone a recent femur surgery for a right distal femoral shaft fracture and this was a comminuted fracture and this surgery was done on 07/19/2021. At that time, the patient had a fall and she sustained a fracture to her right femur. Noted the patient also has history of small cell lung cancer, advanced and progressive and the patient had an incidental COVID 19 infection during her earlier hospitalization in July 2021. She is known to have nonischemic cardiomyopathy with impaired ejection fraction of 35%. She has paroxysmal atr ial fibrillation maintained on long-term anticoagulation. She has hypertension, diabetes mellitus and she is a former smoker. EMS found this patient having tachycardia and a heart rate was ranging between 101 170. The patient came into the ED and the patient had a pulse ox of 91% on room air oxygen. She was having some shortness of breath. EKG showed atrial fibrillation with rapid ventricular response. The patient also had a CT angiogram in the ED that was consistent with underlying small cell lung cancer. The patient had perihilar and left upper lobe masses noted were bulkier measuring 8.3 x 4.5 cm in size and the patient also had an enlarging right paratracheal nodes measuring up to 2.5 cm in size and right midlung pulmonary nodule, stable in addition to new lytic bone disease involving the T2 spinous process. There was also new small right-sided pleural effusion, progressive worsening and enlargement of the consolidation in the posterior right hilar lesion with a masslike configuration measuring 6.4 x 6 cm in size with possibly some endobronchial extension. There was also a new volume loss and consolidation in the right middle lobe in addition to patchy groundglass pulmonary infiltrates and a right upper lobe and portions of the right lower lobe. Based on all this, the patient was started on Cardizem drip for rate control and currently she is running at 10 mg an hour. She is on normal saline at the rate of 130s is an hour. Note that the patient has history of atrial fibrillation. She has been receiving amiodarone 200 mg by mouth on a daily basis in combination with metoprolol 37.5 mg by mouth 3 times a day. The patient is also on long-term and accommodation with Eliquis 5 mg by mouth twice a day. on today's evaluation of 08/14/2021, the patient is feeling slightly better. Atrial fibrillation is under better control and the patient is currently on a combination of metoprolol and amiodarone for rate control and the patient is on long-term articulation with Eliquis. The patient is also on a prednisone burst taper starting with 40 mg of the started today. She is covered with broad- spectrum antibiotics including a combination of Levaquin and clindamycin. No significant complaints. No hemoptysis. No pleurisy.no other new complaint that was since yesterday. On 08/15/2021 patient seen in follow-up on selective care unit. She has just returned from left supraclavicular left nodule biopsy that was done by interventional radiology. She states her breathing is a bit raspy today, no fevers overnight, occasional cough with production of yellow-colored phlegm. She remains on empiric emetics no form of clindamycin and Levaquin. She is on prednisone 40 mg daily, her IV fluids have been hep-locked, and patient is on home dose Lasix 20 mg daily and she will receive additional dose of IV Lasix 40 mg. She has been resumed on her eliquis, for history of chronic atrial fibrillation, her rate is currently better controlled. Was no acute events overnight. Her pro-calcitonin level was negative at her 0.18. However we kept her on antibiotics in view of postobstructive pneumonia related to lung cancer On 08/16/2021 patient seen in follow-up on selective care unit. Patient is resting in bed, breathing is nonlabored, slightly congested cough, we'll get had nebulized treatments. Otherwise has been stable, she remains on 3 L of oxygen pulse ox is 95%. No fever or chills. Hemodynamically she has been stable, no complex chest discomfort. Her supraclavicular lymph node biopsy results are still pending at this time. Today's labs have been reviewed, white blood cell count was 9.0, hemoglobin is 10.1, sodium is 132, the rest of electrolytes and renal profile were unremarkable. Pro-calcitonin level was negative at 0.18. Patient continues on once daily dose of Lasix and she received an additional dose of IV Lasix yesterday. She remains on Eliquis 5 mg twice daily, heart rate is controlled. Remains on empiric antibiotics with clindamycin and Levaquin for possibility of postobstructive pneumonia Objective - Vital Signs Vital signs: Vital Signs Temp 98.1 F 08/16/21 12:30 Pulse 76 08/16/21 12:30 Resp 16 08/16/21 12:30 BP 149/76 08/16/21 12:30 Pulse Ox 94 L 08/16/21 12:30 Intake & Output 08/15/21 08/16/21 08/16/21 18:59 06:59 18:59 Intake Total 358 240 Output Total 300 350 Balance 58 -110 Weight 82.3 kg Intake: Oral 358 240 Output: Urine 300 350 Stool 0 Other: Voiding Method Toilet Toilet Toilet # Voids 1 1 0 # Bowel Movements 0 - Exam GENERAL EXAM: Alert, very pleasant, 75-year-old white female, on 3 L of oxygen comfortable in no apparent distress. HEAD: Normocephalic/atraumatic. EYES: Normal reaction of pupils, equal size. Conjunctiva pink, sclera white. NOSE: Clear with pink turbinates. THROAT: No erythema or exudates. NECK: No masses, no JVD, no thyroid enlargement, no adenopathy. CHEST: No chest wall deformity. Symmetrical expansion. LUNGS: Equal air entry with diffuse rhonchi CVS: Regular rate and rhythm, normal S1 and S2, no gallops, no murmurs, no rubs ABDOMEN: Soft, nontender. No hepatosplenomegaly, normal bowel sounds, no guarding or rigidity. EXTREMITIES: No clubbing, no edema, no cyanosis, 2+ pulses and upper and lower extremities. MUSCULOSKELETAL: Muscle strength and tone normal. SPINE: No scoliosis or deformity SKIN: No rashes CENTRAL NERVOUS SYSTEM: Alert and oriented -3. No focal deficits, tone is normal in all 4 extremities. PSYCHIATRIC: Alert and oriented -3. Appropriate affect. Intact judgment and insight. - Labs CBC & Chem 7: 08/16/21 06:33 08/16/21 06:33 Labs: Abnormal Lab Results - Last 24 Hours (Table) 08/15/21 08/15/21 08/16/21 Range/Units 16:35 20:07 05:41 Hgb (11.4-16.0) gm/dL Hct (34.0-46.0) % MCHC (31.0-37.0) g/dL Neutrophils # (1.3-7.7) k/uL Lymphocytes # (1.0-4.8) k/uL Sodium (137-145) mmol/L BUN (7-17) mg/dL POC Glucose (mg/dL) 213 H 248 H 114 H (75-99) mg/dL 08/16/21 08/16/21 08/16/21 Range/Units 06:33 06:33 11:41 Hgb 10.1 L (11.4-16.0) gm/dL Hct 33.4 L (34.0-46.0) % MCHC 30.2 L (31.0-37.0) g/dL Neutrophils # 7.8 H (1.3-7.7) k/uL Lymphocytes # 0.5 L (1.0-4.8) k/uL Sodium 132 L (137-145) mmol/L BUN 20 H (7-17) mg/dL POC Glucose (mg/dL) 110 H (75-99) mg/dL Assessment and Plan Plan: Assessment: #1. Chronic atrial fibrillation with rapid ventricular response, currently better controlled, and patient remains on a combination of metoprolol, amiodarone, and Eliquis #2. Metastatic small cell lung cancer with skeletal involvement. Based on the computed tomography scan findings there is interval progression of the hilar masses bilaterally in addition to the lymphadenopathy and evidence of skeletal m etastasis at the level of T2. Patient has received chemotherapy, radiation therapy and immunotherapy per medical oncology and radiation oncology. Patient is under the care of Dr. Gil and Dr. David Oliva #3. Supraclavicular adenopathy on the right, and this was biopsied today by interventional radiology on 08/15/2021 #4. Recent COVID 19 infection in the beginning of July 2021, at the time this was a incidental finding, and patient was fairly asymptomatic. Patient continues to test positive for COVID-19 during this admission in July 2021 #5. Recent acute right femoral comminuted and displaced fracture related to a fall, status post surgical repair on 07/13/2021 #6. Nonischemic cardiomyopathy with an ejection fraction of 35% #7. Paroxysmal atrial fibrillation #8. Hypertension #9. Diabetes mellitus #10. Hyperlipidemia Plan: Clinical patient has remained stable No worsening dyspnea Slightly congested, Patient is out of the contact precautions, and she can receive nebulized DuoNeb Continue home dose diuretics, Home dose Lasix, heart rate is controlled, patient is on oral anticoagulation Encourage deep breathing and coughing Follow-up chest x-ray today I have personally seen and examined the patient and reviewed the documentation. I performed a joint evaluation with the nurse practitioner in this evaluation was done more than 20 minutes. I fully agree with the documentation above and the plan of care. Time with Patient: Less than 30
--- NOTE | 2021-08-16 13:44 | P.PN ---
Subjective This is a 75-year-old female with a past medical history significant for nonischemic cardiomyopathy, paroxysmal atrial fibrillation on anticoagulation with Eliquis, hypertension, type 2 diabetes, former nicotine dependence, and metastatic small cell lung cancer, covid-19 in 07/2021, recent femur surgery for a right distal femoral shaft fracture done on 07/19/2021. Patient follows in the office with Dr. Dee. We have been asked to see the patient in consultation for atrial fibrillation with RVR. Patient presented to the emergency department [facility] complaints of shortness of breath. The patient woke up at home having increased shortness of breath and dyspnea. She denies any chest pain or palpitations. She denies any symptoms of orthopnea or PND. On admission patient found atrial fibrillation with ventricular response. Patient was starte d on a Cardizem drip and converted to sinus mechanism. DIAGNOSTICS -Echocardiogram completed 07/13/2021 revealed ejection fraction 55-60%, right ventricle mildly enlarged, mild mitral regurgitation, mild tricuspid regurgitation 08/16/2021 Patient seen and examined at bedside, no acute distress. Patient underwent right supraclavicular lymph node biopsy yesterday. She denies any chest pain. Her breathing is stable no further shortness of breath Telemetry reviewed patient in sinus mechanism, heart rate 60s to 70s. She is currently maintained on amiodarone 200 mg twice a day, Eliquis 5 mg twice a day, atorvastatin 10 mg nightly, Lasix 20 mg daily, lisinopril 20 mg nightly, metoprolol 50 mg 3 times a day Labs, sodium 132, potassium 3.7, BUN 20, serum creatinine 0.6 PHYSICAL EXAM: VITAL SIGNS: Reviewed. GENERAL: Well-developed in no acute distress. HEENT: Neck supple. No JVD LUNGS: Respirations even and unlabored. Lungs diminished to auscultation bilaterally. HEART: Regular rate and rhythm. S1 and S2 heard. ABDOMEN: Soft. Nondistended. Nontender. EXTREMITIES: No clubbing or cyanosis. Peripheral pulses intact. No lower extremity edema NEUROLOGIC: Awake and alert. Oriented x 3. ASSESSMENT: Paroxysmal atrial fibrillation with RVR, on anticoagulation outpatient with Eliquis, maintaining sinus mechanism Metastatic small cell lung cancer with skeletal involvement,CAT scan findings, there is interval progression of disease History of Hypertension Hyperlipidemia Type 2 Diabetes Former nicotine dependence History of nonischemic cardiomyopathy, EF 35% in 2019, with recovery of LV function Recent femur surgery for a right distal femoral shaft fracture done on 07/19/2021 PLAN: Continue metoprolol to 50mg TID, amiodarone 200 mg twice a day, statin, Lasix, lisinopril Continue Eliquis No need to repeat echocardiogram at this time with recent 07/19/21. From a cardiology perspective, no further changes at this time. Please reconsult if needed. Patient to follow up with Dr. Dee outpatient Nurse practitioner note has been reviewed by physician. Signing provider agrees with the documented findings, assessment, and plan of care. Objective - Vital Signs Vital signs: Vital Signs Temp 98.1 F 08/16/21 12:30 Pulse 76 08/16/21 12:30 Resp 16 08/16/21 12:30 BP 149/76 08/16/21 12:30 Pulse Ox 94 L 08/16/21 12:30 Intake & Output 08/15/21 08/16/21 08/16/21 18:59 06:59 18:59 Intake Total 358 240 Output Total 300 350 Balance 58 -110 Weight 82.3 kg Intake: Oral 358 240 Output: Urine 300 350 Stool 0 Other: Voiding Method Toilet Toilet Toilet # Voids 1 1 0 # Bowel Movements 0 - Labs CBC & Chem 7: 08/16/21 06:33 08/16/21 06:33 Labs: Abnormal Lab Results - Last 24 Hours (Table) 08/15/21 08/15/21 08/16/21 Range/Units 16:35 20:07 05:41 Hgb (11.4-16.0) gm/dL Hct (34.0-46.0) % MCHC (31.0-37.0) g/dL Neutrophils # (1.3-7.7) k/uL Lymphocytes # (1.0-4.8) k/uL Sodium (137-145) mmol/L BUN (7-17) mg/dL POC Glucose (mg/dL) 213 H 248 H 114 H (75-99) mg/dL 08/16/21 08/16/21 08/16/21 Range/Units 06:33 06:33 11:41 Hgb 10.1 L (11.4-16.0) gm/dL Hct 33.4 L (34.0-46.0) % MCHC 30.2 L (31.0-37.0) g/dL Neutrophils # 7.8 H (1.3-7.7) k/uL Lymphocytes # 0.5 L (1.0-4.8) k/uL Sodium 132 L (137-145) mmol/L BUN 20 H (7-17) mg/dL POC Glucose (mg/dL) 110 H (75-99) mg/dL
[2021-08-16] MEDS: LEVOFLOXACIN 750MG-D5W PMX 750 MG in DEXTROSE/WATER 1 150ML.BAG IVPB SCH (15:47)
[2021-08-16] MEDS: metFORMIN 500 MG TAB PO SCH (15:54)
[2021-08-16 16:25] LABS: Glucose,Whole Blood 177 mg/dL (75-99)
[2021-08-16 20:03] LABS: Glucose,Whole Blood 195 mg/dL (75-99)
[2021-08-16] MEDS: ATORVASTATIN 10 MG TAB PO SCH (21:00)
[2021-08-16] MEDS: lisinopriL 20 MG TAB PO SCH (21:00)
[2021-08-17] MEDS: CLINDAMYCIN 300 MG in DEXTROSE 5% IN WATER 50 ML IVPB SCH ×10 (01:19→23:37)
[2021-08-17] MEDS: HYDROcodone/APAP 7.5-325MG 1 EACH TAB PO PRN ×3 (05:50→20:34)
[2021-08-17 06:16] LABS: Glucose,Whole Blood 91 mg/dL (75-99)
[2021-08-17 08:04] LABS: Basophils % (A) 0 %; Eosinophils % (A) 0 %; HCT 36.2 % (34.0-46.0); HGB 10.8 gm/dL (11.4-16.0); Hypochromasia Marked; Lymphocytes # (A) 0.6 k/uL (1.0-4.8); Lymphocytes % (A) 5 %; MCH 24.4 pg (25.0-35.0); MCHC 29.7 g/dL (31.0-37.0); MCV 82.1 fL (80.0-100.0); Monocytes # (A) 0.8 k/uL (0-1.0); Monocytes % (A) 7 %; Neutrophils # (A) 10.6 k/uL (1.3-7.7); Neutrophils % (A) 87 %; Platelet Count 275 k/uL (150-450); RBC 4.41 m/uL (3.80-5.40); RDW 14.9 % (11.5-15.5); WBC 12.2 k/uL (3.8-10.6)
[2021-08-17 08:17] LABS: African American GFR (CKD) >90 (>60 ml/min/1.73 sqM); Anion Gap 4 mmol/L; Blood Urea Nitrogen 16 mg/dL (7-17); Calcium 9.4 mg/dL (8.4-10.2); Carbon Dioxide 29 mmol/L (22-30); Chloride 97 mmol/L (98-107); Glucose 93 mg/dL (74-99); Non-African American GFR(CKD) >90 (>60 ml/min/1.73 sqM); Potassium 3.9 mmol/L (3.5-5.1); Sodium 130 mmol/L (137-145)
--- NOTE | 2021-08-17 08:52 | XR ---
EXAMINATION TYPE: XR chest 1V portable DATE OF EXAM: 08/17/2021 COMPARISON: 08/13/2021 HISTORY: Chest pain TECHNIQUE: Single frontal view of the chest is obtained. FINDINGS: Bilateral perihilar consolidation or mass is stable pattern and small bilateral effusions. Biapical pleural thickening greater on the right. Heart is enlarged and there is atherosclerotic loy nge aorta. Diffuse osteopenia and arthropathy of the AC joints. IMPRESSION: 1. Bilateral perihilar mass or consolidation correlate for neoplasm. Superimposed interstitial edema or interstitial pneumonitis or lymphangitic metastases in the differential diagnosis.
[2021-08-17] MEDS: FENOFIBRATE 160 MG TAB PO SCH (08:57)
[2021-08-17] MEDS: AMIODARONE 200 MG TAB PO SCH ×2 (08:57→20:32)
[2021-08-17] MEDS: APIXABAN 5 MG TAB PO SCH ×2 (08:57→20:32)
[2021-08-17] MEDS: FUROSEMIDE 20 MG TAB PO SCH (08:57)
[2021-08-17] MEDS: predniSONE 20 MG TAB PO SCH (08:57)
[2021-08-17] MEDS: CHOLECALCIFEROL 125 MCG (5000 IU) TABLET PO SCH (08:57)
[2021-08-17] MEDS: SPIRONOLACTONE 25 MG TAB PO SCH (08:57)
[2021-08-17] MEDS: METOPROLOL TARTRATE 50 MG TAB PO SCH ×3 (08:57→20:32)
--- NOTE | 2021-08-17 09:02 | P.PN ---
Subjective Progress Note Date: 08/16/21 This is a 75-year-old female with past medical history of recent COVID-19 07/24 ( pathology ?),recent surgical repair and intramedullary nail fixation 07/13/21 related to displaced comminuted fracture distal diaphysis right femur, status post fall, metastatic lung cancer, paroxysmal atrial fibrillation on Eliquis, former nicotine dependence, diabetes mellitus II, hypertension and multiple other medical issues transported to the ER via EMS with complaints of sharp chest pain radiating to the back,palpitations accompanied by shortness of breath. EMS reports heart rates ranging from 100-170. O2 sat of 91% on room air on admission. Congested, reporting occasional for Dr. cough with yellow phlegm. Chest x-ray reporting volume loss in the right hemothorax, no pleural effusion or pneumothorax ,possible superimposed pneumonia. Afebrile, T-max 99.2, WBC 11.3. Hemoglobin 11, platelets 238, INR 1.2, d-dimer 8.52.Chest CTA no definite pulmonary embolus,S anterior left perihilar and left upper lobe ma ss, enlarging right paratracheal nodes measuring up to 2.5 cm, right midlung pulmonary nodule stable to slightly larger, new lytic osseous disease possible of the T2 spinous process, new small right pleural effusion, progressive worsening and enlarging consolidation in the posterior right perihilar region now with a masslike configuration measuring up to 6.4 x 6.2 cm, new volume loss and consolidation likely pneumonia right middle lobe additional patchy groundglass infiltrates throughout the right upper lobe and portions of the right lower lobe. Moderate degenerative disc disease mid to lower thoracic spine, pneumonic in appearance to the T2 spinous process. Sodium 132 potassium 3.6 bicarb 25, BUN 11, creatinine 0.62. Blood sugars controlled, lactic acid 2, magnesium 1.6, alk phos 153, troponin negative 1, proBNP 916. Coronavirus detected. EKG reporting atrial fibrillation with RVR, heart rates in the 150s. 08/15/2021 maintained on amiodarone , beta jalen ,telemetry sinus rhythm . Anticoagulated on eliquis. Congested, occasional productive cough with yellow sputum. Continues on empiric antibiotics for suspected postobstructive pneumonia.NPO, supraclavicular lymph node biopsy scheduled for today.Denies chest pain, palpitations. Maintaining O2 sats in the 90s on 3 L nasal cannula. Afebrile. 08/16/2021 Patient is seen and evaluated in follow up this morning and is being followed by multiple medical consultations. Patient is status post lymph node biopsy and results are pending. Oncology following along with cardiology and pulmonary. Patient is maintained on levaquin and clindamycin. Patient also receiving breathing inhalational treatments and oral steroids and will continue. Patient is currently sinus rhythm and cardiology following. On Metoprolol, oral amiod arone, and eliquis. Patient is afebrile. Patient denies chest pain or worsening shortness of breath. Review of systems: Constitutional: No reports of fatigue, fever, or chills Cardiovascular: No reports of chest pain or palpitations Respiratory: reports of continued shortness of breath and cough GI: No reports of nausea, vomiting, or diarrhea : No reports of dysuria or retention Neurovascular: reports of generalized weakness All medications have been reviewed Active Medications Acetaminophen (Acetaminophen Tab 325 Mg Tab) 650 mg PO Q6HR PRN PRN Reason: Mild Pain or Fever > 100.5 Last Admin: 08/14/21 21:04 Dose: 650 mg Documented by: Hydrocodone Bitart/Acetaminophen (Hydrocodone/Apap 7.5-325mg 1 Each Tab) 1 each PO Q4H PRN PRN Reason: Moderate Pain Last Admin: 08/17/21 05:50 Dose: 1 each Documented by: Albuterol Sulfate (Albuterol Hfa Inhaler) 1 puff INHALATION RT-QID [facility] Last Admin: 08/16/21 21:03 Dose: 1 puff Documented by: Albuterol/Ipratropium (Ipratropium-Albuterol 3 Ml Neb) 3 ml INHALATION RT-QID [facility] Last Admin: 08/16/21 21:03 Dose: Not Given Documented by: Albuterol/Ipratropium (Ipratropium-Albuterol 3 Ml Neb) 3 ml INHALATION RT-TID PRN PRN Reason: Shortness Of Breath Or Wheezing Amiodarone HCl (Amiodarone 200 Mg Tab) 200 mg PO BID [facility] Last Admin: 08/16/21 21:00 Dose: 200 mg Documented by: Apixaban (Apixaban 5 Mg Tab) 5 mg PO BID [facility]; Protocol Last Admin: 08/16/21 21:00 Dose: 5 mg Documented by: Atorvastatin Calcium (Atorvastatin 10 Mg Tab) 10 mg PO HS [facility] Last Admin: 08/16/21 21:00 Dose: 10 mg Documented by: Cholecalciferol (Cholecalciferol 125 Mcg (5000 Iu) Tablet) 125 mcg PO DAILY [facility] Last Admin: 08/16/21 10:25 Dose: 125 mcg Documented by: Fenofibrate (Fenofibrate 160 Mg Tab) 160 mg PO DAILY [facility] Last Admin: 08/16/21 10:25 Dose: 160 mg Documented by: Furosemide (Furosemide 20 Mg Tab) 20 mg PO DAILY [facility] Last Admin: 08/16/21 10:25 Dose: 20 mg Documented by: Levofloxacin 750 mg/ IV (Solution) 150 mls @ 100 mls/hr IVPB Q24H [facility]; Protocol Last Admin: 08/16/21 15:47 Dose: 100 mls/hr Documented by: Clindamycin Phosphate 300 mg/ (Dextrose/Water) 52 mls @ 50 mls/hr IVPB Q6HR [facility]; Protocol Last Admin: 08/17/21 05:51 Dose: 50 mls/hr Documented by: Lisinopril (Lisinopril 20 Mg Tab) 20 mg PO HS [facility] Last Admin: 08/16/21 21:00 Dose: 20 mg Documented by: Metformin HCl (Metformin 500 Mg Tab) 500 mg PO PC-SUPPER [facility] Last Admin: 08/16/21 15:54 Dose: 500 mg Documented by: Metoprolol Tartrate (Metoprolol Tartrate 50 Mg Tab) 50 mg PO TID [facility] Last Admin: 08/16/21 21:00 Dose: 50 mg Documented by: Naloxone HCl (Naloxone 0.4 Mg/Ml 1 Ml Vial) 0.2 mg IV Q2M PRN PRN Reason: Opioid Reversal Ondansetron HCl (Ondansetron 4 Mg/2 Ml Vial) 4 mg IVP Q8HR PRN PRN Reason: Nausea And Vomiting Prednisone (Prednisone 20 Mg Tab) 40 mg PO DAILY [facility] Last Admin: 08/16/21 10:25 Dose: 40 mg Documented by: Spironolactone (Spironolactone 25 Mg Tab) 12.5 mg PO DAILY [facility] Last Admin: 08/16/21 10:26 Dose: 12.5 mg Documented by: PHYSICAL EXAM: GENERAL: 54 year old male who is awake, alert and oriented 3, Sitting up in bed, left lower extremity elevated on pillows and has knee immobilizer applied HEENT: Conjunctivae normal. eyes normal. Oral mucosa moist NECK: Supple, No JVD. CARDIOVASCULAR: S1, S2 regular. No murmur RESPIRATION: Breath sounds diminished in the bases. No rhonchi or crackles ABDOMEN: Soft, non-tender . No guarding. no masses palpable. No ascites, No hepatosplenomegaly.Bowel sounds heard. EXTREMITIES: Left lower extremity dressing, sanguinous drainage, mild edema. Denies calf tenderness, positive DP pulse. NERVOUS SYSTEM: Cranial N 2-12 grossly normal. No focal deficits. Strength and sensation grossly intact. Skin: Warm and dry, no rash Assessment: Chronic Paroxysmal atrial fibrillation with RVR, status post Cardizem drip, currently sinus Possible right lower lobe pneumonia, post-obstructive, maintained on empiric antibiotics Right Supraclavicular adenopathy, biopsy performed and pending Recent displaced comminuted fracture distal diaphysis right femur, status post fall. Status post surgical repair and intramedullary nail fixation 07/13/21 Recent COVID-19 infection, continues to test positive/ Metastatic Lung CA, status post chemotherapy, currently on radiation. Chest CTA reporting progression, skeletal. Chronic CHF with mildly reduced systolic function History of nonischemic cardiomyopathy with EF of 35% Acute hypoxic respiratory failure secondary to the above Diabetes mellitus type II Moderate to severe mitral regurgitation Moderate tricuspid regurgitation Hypertension Former nicotine dependence GI prophylaxis DVT prophylaxis Full code Plan: Recommend to continue with IV antibiotics with breathing inhalational treatments and oral steroids, pulmonary following Patient is status post lymph node biopsy, results pending Oncology following Cardiology following and has been transitioned to oral amiodarone, metoprolol, and continued on eliquis Encouraged increased activity as tolerated Continue with right knee immobilizer Encouraged oral intake Continue cough and deep breathing, incentive spirometer encouraged 10 times per hour while awake Recommend repeat labs in am Continue electrolyte replacement protocol as needed Prognosis is guarded The impression and plan of care has been dictated as directed by Donna Mackey, Nurse Practitioner. : I performed a history and physical examination along with MDM of this patient, discussed the same with the dictator. I agree with the dictator's note ,documented as a scribe. Objective - Vital Signs Vital signs: Vital Signs Temp 97.7 F 03/16/22 19:55 Pulse 74 08/16/21 03:45 Resp 18 08/16/21 03:45 BP 158/81 08/16/21 03:45 Pulse Ox 92 L 08/16/21 03:45 Intake & Output 08/15/21 08/16/21 08/16/21 18:59 06:59 18:59 Intake Total 358 240 Output Total 300 0 Balance 58 240 Weight 82.3 kg Intake: Oral 358 240 Output: Urine 300 0 Stool 0 Other: Voiding Method Toilet Toilet # Voids 1 1 0 # Bowel Movements 0 - Labs CBC & Chem 7: 08/17/21 07:24 08/17/21 07:24 Labs: Abnormal Lab Results - Last 24 Hours (Table) 08/15/21 08/15/21 08/15/21 Range/Units 11:43 16:35 20:07 Hgb (11.4-16.0) gm/dL Hct (34.0-46.0) % MCHC (31.0-37.0) g/dL Neutrophils # (1.3-7.7) k/uL Lymphocytes # (1.0-4.8) k/uL Sodium (137-145) mmol/L BUN (7-17) mg/dL POC Glucose (mg/dL) 117 H 213 H 248 H (75-99) mg/dL 08/16/21 08/16/21 08/16/21 Range/Units 05:41 06:33 06:33 Hgb 10.1 L (11.4-16.0) gm/dL Hct 33.4 L (34.0-46.0) % MCHC 30.2 L (31.0-37.0) g/dL Neutrophils # 7.8 H (1.3-7.7) k/uL Lymphocytes # 0.5 L (1.0-4.8) k/uL Sodium 132 L (137-145) mmol/L BUN 20 H (7-17) mg/dL POC Glucose (mg/dL) 114 H (75-99) mg/dL
[2021-08-17] MEDS: IPRATROPIUM-ALBUTEROL 3 ML NEB INHALATION SCH ×4 (10:07→19:09)
[2021-08-17] MEDS: ALBUTEROL HFA INHALER INHALATION SCH ×4 (10:07→19:08)
[2021-08-17 11:36] LABS: Glucose,Whole Blood 119 mg/dL (75-99)
[2021-08-17] MEDS: LEVOFLOXACIN 750MG-D5W PMX 750 MG in DEXTROSE/WATER 1 150ML.BAG IVPB SCH (12:16)
--- NOTE | 2021-08-17 14:06 | P.PN ---
Subjective Progress Note Date: 08/17/21 Principal diagnosis: Shortness of breath, A. fib with RVR, metastatic lung cancer, COVID-19 infection 75-year-old female patient came into the emergency department because of shor tness of breath and chest pain and palpitations. The patient woke up at home having increased shortness of breath and dyspnea. Note that the patient has undergone a recent femur surgery for a right distal femoral shaft fracture and this was a comminuted fracture and this surgery was done on 07/19/2021. At that time, the patient had a fall and she sustained a fracture to her right femur. Noted the patient also has history of small cell lung cancer, advanced and progressive and the patient had an incidental COVID 19 infection during her earlier hospitalization in July 2021. She is known to have nonischemic cardiomyopathy with impaired ejection fraction of 35%. She has paroxysmal atr ial fibrillation maintained on long-term anticoagulation. She has hypertension, diabetes mellitus and she is a former smoker. EMS found this patient having tachycardia and a heart rate was ranging between 101 170. The patient came into the ED and the patient had a pulse ox of 91% on room air oxygen. She was having some shortness of breath. EKG showed atrial fibrillation with rapid ventricular response. The patient also had a CT angiogram in the ED that was consistent with underlying small cell lung cancer. The patient had perihilar and left upper lobe masses noted were bulkier measuring 8.3 x 4.5 cm in size and the patient also had an enlarging right paratracheal nodes measuring up to 2.5 cm in size and right midlung pulmonary nodule, stable in addition to new lytic bone disease involving the T2 spinous process. There was also new small right-sided pleural effusion, progressive worsening and enlargement of the consolidation in the posterior right hilar lesion with a masslike configuration measuring 6.4 x 6 cm in size with possibly some endobronchial extension. There was also a new volume loss and consolidation in the right middle lobe in addition to patchy groundglass pulmonary infiltrates and a right upper lobe and portions of the right lower lobe. Based on all this, the patient was started on Cardizem drip for rate control and currently she is running at 10 mg an hour. She is on normal saline at the rate of 130s is an hour. Note that the patient has history of atrial fibrillation. She has been receiving amiodarone 200 mg by mouth on a daily basis in combination with metoprolol 37.5 mg by mouth 3 times a day. The patient is also on long-term and accommodation with Eliquis 5 mg by mouth twice a day. on today's evaluation of 08/14/2021, the patient is feeling slightly better. Atrial fibrillation is under better control and the patient is currently on a combination of metoprolol and amiodarone for rate control and the patient is on long-term articulation with Eliquis. The patient is also on a prednisone burst taper starting with 40 mg of the started today. She is covered with broad- spectrum antibiotics including a combination of Levaquin and clindamycin. No significant complaints. No hemoptysis. No pleurisy.no other new complaint that was since yesterday. On 08/15/2021 patient seen in follow-up on selective care unit. She has just returned from left supraclavicular left nodule biopsy that was done by interventional radiology. She states her breathing is a bit raspy today, no fevers overnight, occasional cough with production of yellow-colored phlegm. She remains on empiric emetics no form of clindamycin and Levaquin. She is on prednisone 40 mg daily, her IV fluids have been hep-locked, and patient is on home dose Lasix 20 mg daily and she will receive additional dose of IV Lasix 40 mg. She has been resumed on her eliquis, for history of chronic atrial fibrillation, her rate is currently better controlled. Was no acute events overnight. Her pro-calcitonin level was negative at her 0.18. However we kept her on antibiotics in view of postobstructive pneumonia related to lung cancer On 08/16/2021 patient seen in follow-up on selective care unit. Patient is resting in bed, breathing is nonlabored, slightly congested cough, we'll get had nebulized treatments. Otherwise has been stable, she remains on 3 L of oxygen pulse ox is 95%. No fever or chills. Hemodynamically she has been stable, no complex chest discomfort. Her supraclavicular lymph node biopsy results are still pending at this time. Today's labs have been reviewed, white blood cell count was 9.0, hemoglobin is 10.1, sodium is 132, the rest of electrolytes and renal profile were unremarkable. Pro-calcitonin level was negative at 0.18. Patient continues on once daily dose of Lasix and she received an additional dose of IV Lasix yesterday. She remains on Eliquis 5 mg twice daily, heart rate is controlled. Remains on empiric antibiotics with clindamycin and Levaquin for possibility of postobstructive pneumonia On 08/17/2021 patient seen in follow-up on selective care unit. Breathing fairly comfortable, but still sounding congested, lung sounds are positive for diffuse rhonchi, occasional cough with production of yellowish colored phlegm. No hemoptysis, she has been stable, still short of breath with exertion, but vital signs have been stable, she remains on oral Lasix, she is on Levaquin and clindamycin, she is on nebulized bronchodilators and oral prednisone. Today's labs have been reviewed, white blood cell count was 12.2, hemoglobin is 10.8, sodium is 1:30, potassium 3.9, the rest of electrolytes and renal profile were unremarkable. Core biopsy of a right supraclavicular lymph node showed metastatic squamous cell carcinoma. Clinically patient has been relatively stable, she has been tolerating in relation to the bathroom, she remains on supplemental oxygen, she is hoping to be able to return home. Objective - Vital Signs Vital signs: Vital Signs Temp 98.0 F 08/17/21 08:00 Pulse 70 08/17/21 08:00 Resp 18 08/17/21 08:00 BP 172/69 08/17/21 08:00 Pulse Ox 93 L 08/17/21 08:00 Intake & Output 08/16/21 08/17/21 08/17/21 18:59 06:59 18:59 Intake Total 480 240 Output Total 1100 600 200 Balance -620 -600 40 Weight 82.1 kg Intake: Oral 480 240 Output: Urine 1100 600 200 Stool 0 0 Other: Voiding Method Toilet Toilet Toilet # Voids 0 1 # Bowel Movements 0 - Exam GENERAL EXAM: Alert, very pleasant, 75-year-old white female, on 3 L of oxygen comfortable in no apparent distress. HEAD: Normocephalic/atraumatic. EYES: Normal reaction of pupils, equal size. Conjunctiva pink, sclera white. NOSE: Clear with pink turbinates. THROAT: No erythema or exudates. NECK: No masses, no JVD, no thyroid enlargement, no adenopathy. CHEST: No chest wall deformity. Symmetrical expansion. LUNGS: Equal air entry with diffuse rhonchi CVS: Regular rate and rhythm, normal S1 and S2, no gallops, no murmurs, no rubs ABDOMEN: Soft, nontender. No hepatosplenomegaly, normal bowel sounds, no guarding or rigidity. EXTREMITIES: No clubbing, no edema, no cyanosis, 2+ pulses and upper and lower extremities. MUSCULOSKELETAL: Muscle strength and tone normal. SPINE: No scoliosis or deformity SKIN: No rashes CENTRAL NERVOUS SYSTEM: Alert and oriented -3. No focal deficits, tone is normal in all 4 extremities. PSYCHIATRIC: Alert and oriented -3. Appropriate affect. Intact judgment and insight. - Labs CBC & Chem 7: 08/17/21 07:24 08/17/21 07:24 Labs: Abnormal Lab Results - Last 24 Hours (Table) 08/16/21 08/16/21 08/17/21 Range/Units 16:24 19:49 07:24 WBC 12.2 H (3.8-10.6) k/uL Hgb 10.8 L (11.4-16.0) gm/dL MCH 24.4 L (25.0-35.0) pg MCHC 29.7 L (31.0-37.0) g/dL Neutrophils # 10.6 H (1.3-7.7) k/uL Lymphocytes # 0.6 L (1.0-4.8) k/uL Sodium (137-145) mmol/L Chloride (98-107) mmol/L POC Glucose (mg/dL) 177 H 195 H (75-99) mg/dL 08/17/21 08/17/21 Range/Units 07:24 11:34 WBC (3.8-10.6) k/uL Hgb (11.4-16.0) gm/dL MCH (25.0-35.0) pg MCHC (31.0-37.0) g/dL Neutrophils # (1.3-7.7) k/uL Lymphocytes # (1.0-4.8) k/uL Sodium 130 L (137-145) mmol/L Chloride 97 L (98-107) mmol/L POC Glucose (mg/dL) 119 H (75-99) mg/dL Assessment and Plan Plan: Assessment: #1. Chronic atrial fibrillation with rapid ventricular response, currently better controlled, and patient remains on a combination of metoprolol, amiodarone, and Eliquis #2. Metastatic small cell lung cancer with skeletal involvement. Based on the computed tomography scan findings there is interval progression of the hilar masses bilaterally in addition to the lymphadenopathy and evidence of skeletal metastasis at the level of T2. Patient has received chemotherapy, radiation therapy and immunotherapy per medical oncology and radiation oncology. Patient is under the care of Dr. Gil and Dr. David Oliva #3. Supraclavicular adenopathy on the right, and this was biopsied today by interventional radiology on 08/15/2021, with biopsy results showing metastatic squamous cell carcinoma #4. Recent COVID 19 infection in the beginning of July 2021, at the time this was a incidental finding, and patient was fairly asymptomatic. Patient continues to test positive for COVID-19 during this admission in July 2021 #5. Recent acute right femoral comminuted and displaced fracture related to a fall, status post surgical repair on 07/13/2021 #6. Nonischemic cardiomyopathy with an ejection fraction of 35% #7. Paroxysmal atrial fibrillation #8. Hypertension #9. Diabetes mellitus #10. Hyperlipidemia Plan: Clinical patient has remained stable No worsening dyspnea Still congested Continue prednisone, continue oral Lasix continue antibiotics Right supraclavicular lymph node biopsy results have been noted Long-term prognosis is quite poor Patient is wanting to return home and she will likely benefit from home oxygen Probably not quite ready for discharge yet She can complete oral course of antibiotics Prednisone taper, and breathing treatments I have personally seen and examined the patient and reviewed the documentation. I performed a joint evaluation with the nurse practitioner in this evaluation was done more than 20 minutes. I fully agree with the documentation above and the plan of care.. The prognosis remains extremely poor as the patient has metastatic small cell lung cancer with significant mass effect on her airways bilaterally. The patient has a controlled atrial fibrillation. The patient is still having some ongoing shortness of breath no continue same treatment for now. Continue bronchodilators. Continue steroids. Continue antibiotics. Time with Patient: Less than 30
[2021-08-17] MEDS ORDERED: lisinopriL 20 MG TAB PO STA (15:07)
[2021-08-17] MEDS: lisinopriL 20 MG TAB PO SCH ×2 (15:17→20:32)
[2021-08-17] MEDS: amLODIPine 5 MG TAB PO SCH (15:17)
[2021-08-17 16:26] LABS: Glucose,Whole Blood 196 mg/dL (75-99)
[2021-08-17] MEDS: metFORMIN 500 MG TAB PO SCH (17:31)
--- NOTE | 2021-08-17 17:42 | P.PN ---
Subjective Progress Note Date: 08/17/21 patient appears fairly comfortable at rest on 2 L of oxygen by nasal cannula. Cough has improved though it is still present, with occasional yellowish sputum. She denied any chest pain or palpitations. No fever or chills. Generalized weakness persists but is slowly improving. Objective - Vital Signs Vital signs: Vital Signs Temp 98.1 F 08/17/21 16:00 Pulse 64 08/17/21 16:00 Resp 18 08/17/21 16:00 BP 194/78 08/17/21 16:00 Pulse Ox 92 L 08/17/21 16:00 Intake & Output 08/16/21 08/17/21 08/17/21 18:59 06:59 18:59 Intake Total 480 240 Output Total 1100 600 200 Balance -620 -600 40 Weight 82.1 kg Intake: Oral 480 240 Output: Urine 1100 600 200 Stool 0 0 Other: Voiding Method Toilet Toilet Toilet # Voids 0 1 1 # Bowel Movements 0 - Constitutional General appearance: Present: no acute distress - EENT Eyes: Present: EOMI ENT: Present: hearing grossly normal, normal oropharynx - Neck Details: right medial supraclavicular lymph node, unchanged - Respiratory Respiratory: bilateral: wheezing (scattered), prolonged expiration - Cardiovascular Rhythm: regular Heart sounds: normal: S1, S2 - Gastrointestinal General gastrointestinal: Present: soft - Integumentary Integumentary: Present: normal - Neurologic Neurologic: Present: CNII-XII intact - Musculoskeletal Musculoskeletal: Present: generalized weakness, strength equal bilaterally - Psychiatric Psychiatric: Present: A&O x's 3 - Labs CBC & Chem 7: 08/17/21 07:24 08/17/21 07:24 Labs: Abnormal Lab Results - Last 24 Hours (Table) 08/16/21 08/17/21 08/17/21 Range/Units 19:49 07:24 07:24 WBC 12.2 H (3.8-10.6) k/uL Hgb 10.8 L (11.4-16.0) gm/dL MCH 24.4 L (25.0-35.0) pg MCHC 29.7 L (31.0-37.0) g/dL Neutrophils # 10.6 H (1.3-7.7) k/uL Lymphocytes # 0.6 L (1.0-4.8) k/uL Sodium 130 L (137-145) mmol/L Chloride 97 L (98-107) mmol/L POC Glucose (mg/dL) 195 H (75-99) mg/dL 08/17/21 08/17/21 Range/Units 11:34 16:24 WBC (3.8-10.6) k/uL Hgb (11.4-16.0) gm/dL MCH (25.0-35.0) pg MCHC (31.0-37.0) g/dL Neutrophils # (1.3-7.7) k/uL Lymphocytes # (1.0-4.8) k/uL Sodium (137-145) mmol/L Chloride (98-107) mmol/L POC Glucose (mg/dL) 119 H 196 H (75-99) mg/dL Assessment and Plan (1) Atrial fibrillation with RVR Narrative/Plan: on exam today the patient was rate controlled rhythm clinically fairly regular. Management per cardiology. Current Visit: Yes Status: Acute Code(s): I48.91 - UNSPECIFIED ATRIAL FIBRILLATION SNOMED Code(s): 766077541226081 (2) COPD (chronic obstructive pulmonary disease) Narrative/Plan: patient's a 71 status is also improved with ongoing treatment, including antibiotics. Continue management per the admitting service and pulmonary medicine Current Visit: No Status: Acute Code(s): J44.9 - CHRONIC OBSTRUCTIVE PULMONARY DISEASE, UNSPECIFIED SNOMED Code(s): 84135759 (3) Squamous cell lung cancer Narrative/Plan: the patient has 2 different primaries, small cell cancer and skeletal muscle cancer. She has had progressive disease, and underwent biopsy of the right supraclavicular lymph node to determine which pathology was responsible for the progression. Pathology was positive for squamous cell. Patient will follow-up with Dr. Gil in the outpatient setting to discuss treatment options. we will check if NGS needs to be sent on the new sample. Current Visit: No Status: Chronic Priority: High Code(s): C34.90 - MALIGNANT NEOPLASM OF UNSP PART OF UNSP BRONCHUS OR LUNG SNOMED Code(s): 322214970
[2021-08-17] MEDS: ATORVASTATIN 10 MG TAB PO SCH (20:32)
[2021-08-17 21:14] LABS: Glucose,Whole Blood 165 mg/dL (75-99)
--- NOTE | 2021-08-18 00:04 | P.PN ---
Subjective Progress Note Date: 08/17/21 This is a 75-year-old female with past medical history of recent COVID-19 07/24 ( pathology ?),recent surgical repair and intramedullary nail fixation 07/13/21 related to displaced comminuted fracture distal diaphysis right femur, status post fall, metastatic lung cancer, paroxysmal atrial fibrillation on Eliquis, former nicotine dependence, diabetes mellitus II, hypertension and multiple other medical issues transported to the ER via EMS with complaints of sharp chest pain radiating to the back,palpitations accompanied by shortness of breath. EMS reports heart rates ranging from 100-170. O2 sat of 91% on room air on admission. Congested, reporting occasional for Dr. cough with yellow phlegm. Chest x-ray reporting volume loss in the right hemothorax, no pleural effusion or pneumothorax ,possible superimposed pneumonia. Afebrile, T-max 99.2, WBC 11.3. Hemoglobin 11, platelets 238, INR 1.2, d-dimer 8.52.Chest CTA no definite pulmonary embolus,S anterior left perihilar and left upper lobe ma ss, enlarging right paratracheal nodes measuring up to 2.5 cm, right midlung pulmonary nodule stable to slightly larger, new lytic osseous disease possible of the T2 spinous process, new small right pleural effusion, progressive worsening and enlarging consolidation in the posterior right perihilar region now with a masslike configuration measuring up to 6.4 x 6.2 cm, new volume loss and consolidation likely pneumonia right middle lobe additional patchy groundglass infiltrates throughout the right upper lobe and portions of the right lower lobe. Moderate degenerative disc disease mid to lower thoracic spine, pneumonic in appearance to the T2 spinous process. Sodium 132 potassium 3.6 bicarb 25, BUN 11, creatinine 0.62. Blood sugars controlled, lactic acid 2, magnesium 1.6, alk phos 153, troponin negative 1, proBNP 916. Coronavirus detected. EKG reporting atrial fibrillation with RVR, heart rates in the 150s. 08/15/2021 maintained on amiodarone , beta jalen ,telemetry sinus rhythm . Anticoagulated on eliquis. Congested, occasional productive cough with yellow sputum. Continues on empiric antibiotics for suspected postobstructive pneumonia.NPO, supraclavicular lymph node biopsy scheduled for today.Denies chest pain, palpitations. Maintaining O2 sats in the 90s on 3 L nasal cannula. Afebrile. 08/16/2021 Patient is seen and evaluated in follow up this morning and is being followed by multiple medical consultations. Patient is status post lymph node biopsy and results are pending. Oncology following along with cardiology and pulmonary. Patient is maintained on levaquin and clindamycin. Patient also receiving breathing inhalational treatments and oral steroids and will continue. Patient is currently sinus rhythm and cardiology following. On Metoprolol, oral amiod arone, and eliquis. Patient is afebrile. Patient denies chest pain or worsening shortness of breath. 08/17/2021 Patient is seen in follow up today and is scheduled to receive radiation therapy with Dr. Oliva this morning. Patient continues with shortness of breath and will have nursing do home 02 evaluation. Script given to case management for oxygen in the outpatient setting. 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 Patient to follow with Dr. Oseguera outpatient to further determine treatment moving forward. Patient with some mild lower extremity edema noted and continued on oral lasix. Will add compression stockings. Encouraged increased activity as tolerated. Chest xray ordered and shows bilateral perihilar mass or consolidation correlate for neoplasm and superimposed interstitial edema or interstitial pneumonitis or lymphangitic metastases in the differential. Patient is continued on antibiotics along with oral prednisone and breathing inhalational treatments. Review of systems: Constitutional: No reports of fatigue, fever, or chills Cardiovascular: No reports of chest pain or palpitations Respiratory: reports of continued shortness of breath and cough GI: No reports of nausea, vomiting, or diarrhea : No reports of dysuria or retention Neurovascular: reports of generalized weakness All medications have been reviewed Active Medications Acetaminophen (Acetaminophen Tab 325 Mg Tab) 650 mg PO Q6HR PRN PRN Reason: Mild Pain or Fever > 100.5 Last Admin: 08/14/21 21:04 Dose: 650 mg Documented by: Hydrocodone Bitart/Acetaminophen (Hydrocodone/Apap 7.5-325mg 1 Each Tab) 1 each PO Q4H PRN PRN Reason: Moderate Pain Last Admin: 08/17/21 20:34 Dose: 1 each Documented by: Albuterol Sulfate (Albuterol Hfa Inhaler) 1 puff INHALATION RT-QID [facility] Last Admin: 08/17/21 19:08 Dose: 1 puff Documented by: Albuterol/Ipratropium (Ipratropium-Albuterol 3 Ml Neb) 3 ml INHALATION RT-QID [facility] Last Admin: 08/17/21 19:09 Dose: Not Given Documented by: Albuterol/Ipratropium (Ipratropium-Albuterol 3 Ml Neb) 3 ml INHALATION RT-TID PRN PRN Reason: Shortness Of Breath Or Wheezing Amiodarone HCl (Amiodarone 200 Mg Tab) 200 mg PO BID [facility] Last Admin: 08/17/21 20:32 Dose: 200 mg Documented by: Amlodipine Besylate (Amlodipine 5 Mg Tab) 5 mg PO DAILY [facility] Last Admin: 08/17/21 15:17 Dose: 5 mg Documented by: Apixaban (Apixaban 5 Mg Tab) 5 mg PO BID [facility]; Protocol Last Admin: 08/17/21 20:32 Dose: 5 mg Documented by: Atorvastatin Calcium (Atorvastatin 10 Mg Tab) 10 mg PO HS [facility] Last Admin: 08/17/21 20:32 Dose: 10 mg Documented by: Cholecalciferol (Cholecalciferol 125 Mcg (5000 Iu) Tablet) 125 mcg PO DAILY [facility] Last Admin: 08/17/21 08:57 Dose: 125 mcg Documented by: Fenofibrate (Fenofibrate 160 Mg Tab) 160 mg PO DAILY [facility] Last Admin: 08/17/21 08:57 Dose: 160 mg Documented by: Furosemide (Furosemide 20 Mg Tab) 20 mg PO DAILY [facility] Last Admin: 08/17/21 08:57 Dose: 20 mg Documented by: Levofloxacin 750 mg/ IV (Solution) 150 mls @ 100 mls/hr IVPB Q24H [facility]; Protocol Last Admin: 08/17/21 12:16 Dose: 100 mls/hr Documented by: Clindamycin Phosphate 300 mg/ (Dextrose/Water) 52 mls @ 50 mls/hr IVPB Q6HR [facility]; Protocol Last Admin: 08/17/21 23:37 Dose: 50 mls/hr Documented by: Lisinopril (Lisinopril 20 Mg Tab) 20 mg PO BID [facility] Last Admin: 08/17/21 20:32 Dose: 20 mg Documented by: Metformin HCl (Metformin 500 Mg Tab) 500 mg PO PC-SUPPER [facility] Last Admin: 08/17/21 17:31 Dose: 500 mg Documented by: Metoprolol Tartrate (Metoprolol Tartrate 50 Mg Tab) 50 mg PO TID [facility] Last Admin: 08/17/21 20:32 Dose: 50 mg Documented by: Naloxone HCl (Naloxone 0.4 Mg/Ml 1 Ml Vial) 0.2 mg IV Q2M PRN PRN Reason: Opioid Reversal Ondansetron HCl (Ondansetron 4 Mg/2 Ml Vial) 4 mg IVP Q8HR PRN PRN Reason: Nausea And Vomiting Prednisone (Prednisone 20 Mg Tab) 40 mg PO DAILY [facility] Last Admin: 08/17/21 08:57 Dose: 40 mg Documented by: Spironolactone (Spironolactone 25 Mg Tab) 12.5 mg PO DAILY [facility] Last Admin: 08/17/21 08:57 Dose: 12.5 mg Documented by: PHYSICAL EXAM: GENERAL: 75 year old female who is awake, alert and oriented 3, Sitting up in bed, currently on 3 L via NC HEENT: Conjunctivae normal. eyes normal. Oral mucosa moist NECK: Supple, No JVD. CARDIOVASCULAR: S1, S2 regular. No murmur RESPIRATION: Breath sounds diminished in the bases. No rhonchi or crackles ABDOMEN: Soft, non-tender . No guarding. no masses palpable. No ascites, No hepatosplenomegaly.Bowel sounds heard. EXTREMITIES: mild edema. Denies calf tenderness, positive DP pulse. NERVOUS SYSTEM: Cranial N 2-12 grossly normal. No focal deficits. Strength and sensation grossly intact. Skin: Warm and dry, no rash Assessment: Chronic Paroxysmal atrial fibrillation with RVR, status post Cardizem drip, currently sinus Possible right lower lobe pneumonia, post-obstructive, maintained on empiric antibiotics Right Supraclavicular adenopathy, biopsy pathology is positive for squamous cell Recent displaced comminuted fracture distal diaphysis right femur, status post fall. Status post surgical repair and intramedullary nail fixation 07/13/21 Recent COVID-19 infection, continues to test positive Metastatic Lung CA, status post chemotherapy, currently on radiation. Chest CTA reporting progression, skeletal. Receiving radiation today Chronic CHF with mildly reduced systolic dysfunction History of nonischemic cardiomyopathy with EF of 35% Acute hypoxic respiratory failure secondary to the above Diabetes mellitus type II Moderate to severe mitral regurgitation Moderate tricuspid regurgitation Hypertension Former nicotine dependence GI prophylaxis DVT prophylaxis Full code Plan: Recommend to continue with IV antibiotics with breathing inhalational treatments and oral steroids, pulmonary following Patient is status post lymph node biopsy, results showing pathology positive for squamous cell Oncology following, Radiation onc Dr. Oliva as well and receiving radiation today, patient to follow with Dr. Oseguera outpatient Cardiology following and has been transitioned to oral amiodarone, metoprolol, and continued on eliquis Encouraged increased activity as tolerated Continue with right knee immobilizer Encouraged oral intake Continue cough and deep breathing, incentive spirometer encouraged 10 times per hour while awake Recommend repeat labs in am Continue electrolyte replacement protocol as needed Overall Prognosis is poor and guarded Patient being arranged for home 02 of 3L Possible discharge in 24-48 hours. The impression and plan of care has been dictated as directed by Donna Mackey, Nurse Practitioner. : I performed a history and physical examination along with MDM of this patient, discussed the same with the dictator. I agree with the dictator's note ,documented as a scribe. Objective - Vital Signs Vital signs: Vital Signs Temp 97.5 F L 08/17/21 03:50 Pulse 70 08/17/21 03:50 Resp 18 08/17/21 03:50 BP 165/85 08/17/21 03:50 Pulse Ox 91 L 08/17/21 03:50 Intake & Output 08/16/21 08/17/21 08/17/21 18:59 06:59 18:59 Intake Total 480 Output Total 1100 600 Balance -620 -600 Weight 82.1 kg Intake: Oral 480 Output: Urine 1100 600 Stool 0 Other: Voiding Method Toilet Toilet # Voids 0 1 # Bowel Movements 0 - Labs CBC & Chem 7: 08/17/21 07:24 08/17/21 07:24 Labs: Abnormal Lab Results - Last 24 Hours (Table) 08/16/21 08/16/21 08/16/21 Range/Units 11:41 16:24 19:49 WBC (3.8-10.6) k/uL Hgb (11.4-16.0) gm/dL MCH (25.0-35.0) pg MCHC (31.0-37.0) g/dL Neutrophils # (1.3-7.7) k/uL Lymphocytes # (1.0-4.8) k/uL Sodium (137-145) mmol/L Chloride (98-107) mmol/L POC Glucose (mg/dL) 110 H 177 H 195 H (75-99) mg/dL 08/17/21 08/17/21 Range/Units 07:24 07:24 WBC 12.2 H (3.8-10.6) k/uL Hgb 10.8 L (11.4-16.0) gm/dL MCH 24.4 L (25.0-35.0) pg MCHC 29.7 L (31.0-37.0) g/dL Neutrophils # 10.6 H (1.3-7.7) k/uL Lymphocytes # 0.6 L (1.0-4.8) k/uL Sodium 130 L (137-145) mmol/L Chloride 97 L (98-107) mmol/L POC Glucose (mg/dL) (75-99) mg/dL
[2021-08-18 01:07] LABS: Glucose,Whole Blood 143 mg/dL (75-99)
[2021-08-18] MEDS: HYDROcodone/APAP 7.5-325MG 1 EACH TAB PO PRN (04:09)
[2021-08-18] MEDS: CLINDAMYCIN 300 MG in DEXTROSE 5% IN WATER 50 ML IVPB SCH ×8 (04:52→23:33)
[2021-08-18] MEDS: DILTIAZEM 125 MG in SODIUM CHLORIDE 0.9% 100 ML IV SCH (06:01)
[2021-08-18 06:42] LABS: Glucose,Whole Blood 111 mg/dL (75-99)
[2021-08-18] MEDS: ALBUTEROL HFA INHALER INHALATION SCH ×4 (07:52→19:51)
[2021-08-18] MEDS: IPRATROPIUM-ALBUTEROL 3 ML NEB INHALATION SCH ×4 (07:52→19:51)
[2021-08-18] MEDS ORDERED: FUROSEMIDE 10 MG/ML 2 ML VIAL IV ONE (08:15)
[2021-08-18] MEDS: SPIRONOLACTONE 25 MG TAB PO SCH (08:26)
[2021-08-18] MEDS: METOPROLOL TARTRATE 50 MG TAB PO SCH ×3 (08:27→20:07)
[2021-08-18] MEDS: FENOFIBRATE 160 MG TAB PO SCH (08:27)
[2021-08-18] MEDS: predniSONE 20 MG TAB PO SCH (08:27)
[2021-08-18] MEDS: FUROSEMIDE 20 MG TAB PO SCH (08:27)
[2021-08-18] MEDS: AMIODARONE 200 MG TAB PO SCH ×2 (08:27→20:07)
[2021-08-18] MEDS: CHOLECALCIFEROL 125 MCG (5000 IU) TABLET PO SCH (08:27)
[2021-08-18] MEDS: APIXABAN 5 MG TAB PO SCH ×2 (08:27→20:07)
[2021-08-18 11:40] LABS: Glucose,Whole Blood 149 mg/dL (75-99)
[2021-08-18] MEDS: lisinopriL 20 MG TAB PO SCH ×2 (12:37→20:07)
[2021-08-18] MEDS: amLODIPine 5 MG TAB PO SCH (12:37)
[2021-08-18] MEDS: LEVOFLOXACIN 750MG-D5W PMX 750 MG in DEXTROSE/WATER 1 150ML.BAG IVPB SCH (12:41)
--- NOTE | 2021-08-18 13:09 | P.PN ---
Subjective Progress Note Date: 08/18/21 Shortness of breath, A. fib with RVR, metastatic lung cancer, COVID-19 infectio n 75-year-old female patient came into the emergency department because of shortness of breath and chest pain and palpitations. The patient woke up at home having increased shortness of breath and dyspnea. Note that the patient has undergone a recent femur surgery for a right distal femoral shaft fracture and this was a comminuted fracture and this surgery was done on 07/19/2021. At that time, the patient had a fall and she sustained a fracture to her right femur. Noted the patient also has history of small cell lung cancer, advanced and progressive and the patient had an incidental COVID 19 infection during her earlier hospitalization in July 2021. She is known to have nonischemic cardiomyopathy with impaired ejection fraction of 35%. She has paroxysmal atrial fibrillation maintained on long-term anticoagulation. She has hypertension, diabetes mellitus and she is a former smoker. EMS found this patient having tachycardia and a heart rate was ranging between 101 170. The patient came into the ED and the patient had a pulse ox of 91% on room air oxygen. She was having some shortness of breath. EKG showed atrial fibrillation with rapid ventricular response. The patient also had a CT angiogram in the ED that was consistent with underlying small cell lung cancer. The patient had perihilar and left upper lobe masses noted were bulkier measuring 8.3 x 4.5 cm in size and the patient also had an enlarging right paratracheal nodes measuring up to 2.5 cm in size and right midlung pulmonary nodule, stable in addition to new lytic bone disease involving the T2 spinous process. There was also new small right-sided pleural effusion, progressive worsening and enlargement of the consolidation in the posterior right hilar lesion with a masslike configuration measuring 6.4 x 6 cm in size with possibly some endobronchial extension. There was also a new volume loss and consolidation in the right middle lobe in addition to patchy groundglass pulmonary infiltrates and a right upper lobe and portions of the right lower lobe. Based on all this, the patient was started on Cardizem drip for rate control and currently she is running at 10 mg an hour. She is on normal saline at the rate of 130s is an hour. Note that the patient has history of atrial fibrillation. She has been receiving amiodarone 200 mg by mouth on a daily basis in combination with metoprolol 37.5 mg by mouth 3 times a day. The patient is also on long-term and accommodation with Eliquis 5 mg by mouth twice a day. on today's evaluation of 08/14/2021, the patient is feeling slightly better. Atrial fibrillation is under better control and the patient is currently on a combination of metoprolol and amiodarone for rate control and the patient is on long-term articulation with Eliquis. The patient is also on a prednisone burst taper starting with 40 mg of the started today. She is covered with broad- spectrum antibiotics including a combination of Levaquin and clindamycin. No significant complaints. No hemoptysis. No pleurisy.no other new complaint that was since yesterday. On 08/15/2021 patient seen in follow-up on selective care unit. She has just returned from left supraclavicular left nodule biopsy that was done by interventional radiology. She states her breathing is a bit raspy today, no fevers overnight, occasional cough with production of yellow-colored phlegm. She remains on empiric emetics no form of clindamycin and Levaquin. She is on prednisone 40 mg daily, her IV fluids have been hep-locked, and patient is on home dose Lasix 20 mg daily and she will receive additional dose of IV Lasix 40 mg. She has been resumed on her eliquis, for history of chronic atrial fibrillation, her rate is currently better controlled. Was no acute events overnight. Her pro-calcitonin level was negative at her 0.18. However we kept her on antibiotics in view of postobstructive pneumonia related to lung cancer On 08/16/2021 patient seen in follow-up on selective care unit. Patient is resting in bed, breathing is nonlabored, slightly congested cough, we'll get had nebulized treatments. Otherwise has been stable, she remains on 3 L of oxygen pulse ox is 95%. No fever or chills. Hemodynamically she has been stable, no complex chest discomfort. Her supraclavicular lymph node biopsy results are still pending at this time. Today's labs have been reviewed, white blood cell count was 9.0, hemoglobin is 10.1, sodium is 132, the rest of electrolytes and renal profile were unremarkable. Pro-calcitonin level was negative at 0.18. Patient continues on once daily dose of Lasix and she received an additional dose of IV Lasix yesterday. She remains on Eliquis 5 mg twice daily, heart rate is controlled. Remains on empiric antibiotics with clindamycin and Levaquin for possibility of postobstructive pneumonia On 08/17/2021 patient seen in follow-up on selective care unit. Breathing fairly comfortable, but still sounding congested, lung sounds are positive for diffuse rhonchi, occasional cough with production of yellowish colored phlegm. No hemoptysis, she has been stable, still short of breath with exertion, but vital signs have been stable, she remains on oral Lasix, she is on Levaquin and clindamycin, she is on nebulized bronchodilators and oral prednisone. Today's labs have been reviewed, white blood cell count was 12.2, hemoglobin is 10.8, sodium is 1:30, potassium 3.9, the rest of electrolytes and renal profile were unremarkable. Core biopsy of a right supraclavicular lymph node showed metastatic squamous cell carcinoma. Clinically patient has been relatively stable, she has been tolerating in relation to the bathroom, she remains on supplemental oxygen, she is hoping to be able to return home. The 2021, patient is being seen for a follow-up. Rather stable since yesterday. However, the patient had an episode earlier this morning with the patient went into atrial fibrillation rapid ventricular response and the patient had several increased shortness of breath. Cardiology was informed and the patient was kept on oral amiodarone and the patient was started on a Cardizem drip which is currently running at 5 mg an hour. Her cardiac rhythm switched back into sinus. She is having episodes approximately atrial fibrillation. Meanwhile, the patient is still in long-term anticoagulation with Eliquis. The patient underwent a fine-needle aspiration of the right clavicular lymph node that do not to be consistent with small cell lung cancer. As such, the patient is a combination of small and non-small cell lung cancer/squamous cell carcinoma. She is being also treated for an acute COPD exacerbation. She is on a combination of bronchodilators. She remains on antibiotics and the patient is currently on examination Levaquin and clindamycin. The patient is switched to prednisone burst taper. Less bronchospastic and wheezy compared to yesterday. No other complaints otherwise for now. She is communicating. No hemoptysis no pleurisy. No syncope. Objective - Vital Signs Vital signs: Vital Signs Temp 98.0 F 08/18/21 12:00 Pulse 65 08/18/21 12:00 Resp 20 08/18/21 12:00 BP 133/77 08/18/21 12:00 Pulse Ox 92 L 08/18/21 12:00 Intake & Output 08/17/21 08/18/21 08/18/21 18:59 06:59 18:59 Intake Total 240 240 Output Total 650 200 0 Balance -410 -200 240 Weight 81.7 kg Intake: Oral 240 240 Output: Urine 650 200 Stool 0 0 0 Other: Voiding Method Toilet Toilet Toilet # Voids 1 1 2 - Exam GENERAL EXAM: Alert, very pleasant, 75-year-old white female, on 3 L of oxygen comfortable in no apparent distress. HEAD: Normocephalic/atraumatic. EYES: Normal reaction of pupils, equal size. Conjunctiva pink, sclera white. NOSE: Clear with pink turbinates. THROAT: No erythema or exudates. NECK: No masses, no JVD, no thyroid enlargement, no adenopathy. CHEST: No chest wall deformity. Symmetrical expansion. LUNGS: Equal air entry with diffuse rhonchi CVS: Regular rate and rhythm, normal S1 and S2, no gallops, no murmurs, no rubs ABDOMEN: Soft, nontender. No hepatosplenomegaly, normal bowel sounds, no guarding or rigidity. EXTREMITIES: No clubbing, no edema, no cyanosis, 2+ pulses and upper and lower extremities. MUSCULOSKELETAL: Muscle strength and tone normal. SPINE: No scoliosis or deformity SKIN: No rashes CENTRAL NERVOUS SYSTEM: Alert and oriented -3. No focal deficits, tone is normal in all 4 extremities. PSYCHIATRIC: Alert and oriented -3. Appropriate affect. Intact judgment and insight. - Labs CBC & Chem 7: 08/17/21 07:24 08/17/21 07:24 Labs: Abnormal Lab Results - Last 24 Hours (Table) 08/17/21 08/17/21 08/18/21 Range/Units 16:24 20:43 01:05 POC Glucose (mg/dL) 196 H 165 H 143 H (75-99) mg/dL 08/18/21 08/18/21 Range/Units 05:48 11:38 POC Glucose (mg/dL) 111 H 149 H (75-99) mg/dL Assessment and Plan Plan: #1. Chronic atrial fibrillation with rapid ventricular response, currently better controlled, and patient remains on a combination of metoprolol, amiodarone, and Eliquis. Note that the patient had another episode of atrial fibrillation with RVR and patient is currently on a Cardizem drip for rate control. She is improved and the patient was also given a dose of Lasix and the patient is much more comfortable this morning. #2. Metastatic small cell lung cancer with skeletal involvement. Based on the computed tomography scan findings there is interval progression of the hilar masses bilaterally in addition to the lymphadenopathy and evidence of skeletal metastasis at the level of T2. Patient has received chemotherapy, radiation therapy and immunotherapy per medical oncology and radiation oncology. Patient is under the care of Dr. Gil and Dr. David Oliva. P biopsy was consistent with small cell lung cancer the patient is also known to have metastatic squamous cell carcinoma. #3. Supraclavicular adenopathy on the right, and this was biopsied today by interventional radiology on 08/15/2021, with biopsy results showing metastatic squamous cell carcinoma #4. Recent COVID 19 infection in the beginning of July 2021, at the time this was a incidental finding, and patient was fairly asymptomatic. Patient continues to test positive for COVID-19 during this admission in July 2021 #5. Recent acute right femoral comminuted and displaced fracture related to a fall, status post surgical repair on 07/13/2021 #6. Nonischemic cardiomyopathy with an ejection fraction of 35% #7. Paroxysmal atrial fibrillation #8. Hypertension #9. Diabetes mellitus #10. Hyperlipidemia Plan Management of atrial fibrillation by cardiology, treatment is appropriate at this point in time Continue bronchodilators Prednisone burst taper Biopsy of the supra clavicular lymph node was noted Prognosis long-term is poor baseline above-mentioned comorbidities Complete a course of antibiotics We'll continue to follow
[2021-08-18 16:37] LABS: Glucose,Whole Blood 167 mg/dL (75-99)
[2021-08-18] MEDS: metFORMIN 500 MG TAB PO SCH (17:42)
[2021-08-18 19:44] LABS: Glucose,Whole Blood 149 mg/dL (75-99)
[2021-08-18] MEDS: ACETAMINOPHEN TAB 325 MG TAB PO PRN (20:07)
[2021-08-18] MEDS: ATORVASTATIN 10 MG TAB PO SCH (20:07)
--- NOTE | 2021-08-19 00:13 | P.PN ---
Subjective Progress Note Date: 08/19/21 This is a 75-year-old female with past medical history of recent COVID-19 07/24 ( pathology ?),recent surgical repair and intramedullary nail fixation 07/13/21 related to displaced comminuted fracture distal diaphysis right femur, status post fall, metastatic lung cancer, paroxysmal atrial fibrillation on Eliquis, former nicotine dependence, diabetes mellitus II, hypertension and multiple other medical issues transported to the ER via EMS with complaints of sharp chest pain radiating to the back,palpitations accompanied by shortness of breath. EMS reports heart rates ranging from 100-170. O2 sat of 91% on room air on admission. Congested, reporting occasional for Dr. cough with yellow phlegm. Chest x-ray reporting volume loss in the right hemothorax, no pleural effusion or pneumothorax ,possible superimposed pneumonia. Afebrile, T-max 99.2, WBC 11.3. Hemoglobin 11, platelets 238, INR 1.2, d-dimer 8.52.Chest CTA no definite pulmonary embolus,S anterior left perihilar and left upper lobe ma ss, enlarging right paratracheal nodes measuring up to 2.5 cm, right midlung pulmonary nodule stable to slightly larger, new lytic osseous disease possible of the T2 spinous process, new small right pleural effusion, progressive worsening and enlarging consolidation in the posterior right perihilar region now with a masslike configuration measuring up to 6.4 x 6.2 cm, new volume loss and consolidation likely pneumonia right middle lobe additional patchy groundglass infiltrates throughout the right upper lobe and portions of the right lower lobe. Moderate degenerative disc disease mid to lower thoracic spine, pneumonic in appearance to the T2 spinous process. Sodium 132 potassium 3.6 bicarb 25, BUN 11, creatinine 0.62. Blood sugars controlled, lactic acid 2, magnesium 1.6, alk phos 153, troponin negative 1, proBNP 916. Coronavirus detected. EKG reporting atrial fibrillation with RVR, heart rates in the 150s. 08/15/2021 maintained on amiodarone , beta jalen ,telemetry sinus rhythm . Anticoagulated on eliquis. Congested, occasional productive cough with yellow sputum. Continues on empiric antibiotics for suspected postobstructive pneumonia.NPO, supraclavicular lymph node biopsy scheduled for today.Denies chest pain, palpitations. Maintaining O2 sats in the 90s on 3 L nasal cannula. Afebrile. 08/16/2021 Patient is seen and evaluated in follow up this morning and is being followed by multiple medical consultations. Patient is status post lymph node biopsy and results are pending. Oncology following along with cardiology and pulmonary. Patient is maintained on levaquin and clindamycin. Patient also receiving breathing inhalational treatments and oral steroids and will continue. Patient is currently sinus rhythm and cardiology following. On Metoprolol, oral amiod arone, and eliquis. Patient is afebrile. Patient denies chest pain or worsening shortness of breath. 08/17/2021 Patient is seen in follow up today and is scheduled to receive radiation therapy with Dr. Oliva this morning. Patient continues with shortness of breath and will have nursing do home 02 evaluation. Script given to case management for oxygen in the outpatient setting. 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 Patient to follow with Dr. Oseguera outpatient to further determine treatment moving forward. Patient with some mild lower extremity edema noted and continued on oral lasix. Will add compression stockings. Encouraged increased activity as tolerated. Chest xray ordered and shows bilateral perihilar mass or consolidation correlate for neoplasm and superimposed interstitial edema or interstitial pneumonitis or lymphangitic metastases in the differential. Patient is continued on antibiotics along with oral prednisone and breathing inhalational treatments. 08/18/2021 Patient is currently resting in the bed comfortably. Awake alert and oriented x3. Overnight patient went into rapid regular rate and was started on Cardizem drip. Converted back to sinus rhythm this morning. Patient was also having worsening shortness of breath and was given a dose of IV Lasix. Continued on oral Lasix otherwise. Patient is also anticoagulated with Eliquis and also on amiodarone.. Patient is being continued on bronchodilators. On antibiotics in the form of Levaquin and clindamycin. Patient is being continued on prednisone 40 mg daily. Previous laboratory data reviewed. Blood pressure is better controlled. Curre ntly requiring 3 L oxygen via nasal cannula. Pulmonary and oncology is on board. Current medications reviewed. Review of systems: Constitutional: No reports of fatigue, fever, or chills Cardiovascular: No reports of chest pain or palpitations Respiratory: reports of continued shortness of breath and cough GI: No reports of nausea, vomiting, or diarrhea : No reports of dysuria or retention Neurovascular: reports of generalized weakness All medications have been reviewed Objective - Vital Signs Vital signs: Vital Signs Temp 98.3 F 08/18/21 20:05 Pulse 68 08/18/21 23:30 Resp 17 08/18/21 23:30 BP 177/77 08/18/21 23:30 Pulse Ox 93 L 08/18/21 23:30 Intake & Output 08/18/21 08/18/21 08/19/21 06:59 18:59 06:59 Intake Total 267.417 Output Total 200 0 200 Balance -200 267.417 -200 Weight 81.7 kg Intake: Intake, IV Titration 27.417 Amount Diltiazem 125 mg In 27.417 Sodium Chloride 0.9% 100 ml @ 5 MG/HR 5 mls/hr IV .Q24H [facility] Rx#:[id number] Oral 240 Output: Urine 200 200 Stool 0 0 Other: Voiding Method Toilet Toilet Toilet # Voids 1 2 - Exam PHYSICAL EXAM: GENERAL: 75 year old female who is awake, alert and oriented 3, Sitting up in bed, currently on 3 L via NC HEENT: Conjunctivae normal. eyes normal. Oral mucosa moist NECK: Supple, No JVD. CARDIOVASCULAR: S1, S2 regular. No murmur RESPIRATION: Breath sounds diminished in the bases. No rhonchi , basilar crackles ABDOMEN: Soft, non-tender . No guarding. no masses palpable. No ascites, No hepatosplenomegaly.Bowel sounds heard. EXTREMITIES: mild edema. Denies calf tenderness, positive DP pulse. NERVOUS SYSTEM: Cranial N 2-12 grossly normal. No focal deficits. Strength and sensation grossly intact. Skin: Warm and dry, no rash - Labs CBC & Chem 7: 08/17/21 07:24 08/17/21 07:24 Labs: Abnormal Lab Results - Last 24 Hours (Table) 08/18/21 08/18/21 08/18/21 Range/Units 01:05 05:48 11:38 POC Glucose (mg/dL) 143 H 111 H 149 H (75-99) mg/dL 08/18/21 08/18/21 Range/Units 16:36 19:42 POC Glucose (mg/dL) 167 H 149 H (75-99) mg/dL Assessment and Plan Assessment: Paroxysmal atrial fibrillation with RVR, status post Cardizem drip, currently sinus Possible right lower lobe pneumonia, post-obstructive, maintained on empiric antibiotics Right Supraclavicular adenopathy, 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 Patient does have both small cell and non-small cell lung cancer. Recent displaced comminuted fracture distal diaphysis right femur, status post fall. Status post surgical repair and intramedullary nail fixation 07/13/21 Recent COVID-19 infection, continues to test positive Metastatic Lung CA, status post chemotherapy, currently on radiation. Chest CTA reporting progression, skeletal. Receiving radiation today Chronic CHF with mildly reduced systolic dysfunction History of nonischemic cardiomyopathy with EF of 35% Acute hypoxic respiratory failure secondary to the above Diabetes mellitus type II Moderate to severe mitral regurgitation Moderate tricuspid regurgitation Hypertension Former nicotine dependence GI prophylaxis DVT prophylaxis Full code Plan: Recommend to continue with IV antibiotics with breathing inhalational treatments and oral steroids, pulmonary following Patient is status post lymph node biopsy, results showing pathology positive for squamous cell Oncology following, Radiation onc Dr. Oliva as well and receiving radiation today, patient to follow with Dr. Oseguera outpatient Cardiology following and has been transitioned to oral amiodarone, metoprolol, and continued on eliquis Encouraged increased activity as tolerated Continue with right knee immobilizer Encouraged oral intake Continue cough and deep breathing, incentive spirometer encouraged 10 times per hour while awake Recommend repeat labs in am Continue electrolyte replacement protocol as needed Overall Prognosis is poor and guarded Patient being arranged for home 02 of 3L Possible discharge in 24-48 hours. Time with Patient: Greater than 30
[2021-08-19] MEDS: ACETAMINOPHEN TAB 325 MG TAB PO PRN ×2 (04:42→20:33)
[2021-08-19 04:45] VITALS: RESP 18
[2021-08-19] MEDS: CLINDAMYCIN 300 MG in DEXTROSE 5% IN WATER 50 ML IVPB SCH ×6 (06:21→17:18)
[2021-08-19 07:30] LABS: Basophils % (A) 0 %; Eosinophils % (A) 0 %; HCT 37.2 % (34.0-46.0); HGB 10.9 gm/dL (11.4-16.0); Hypochromasia Marked; Lymphocytes # (A) 0.5 k/uL (1.0-4.8); Lymphocytes % (A) 4 %; MCH 23.6 pg (25.0-35.0); MCHC 29.2 g/dL (31.0-37.0); MCV 80.7 fL (80.0-100.0); Monocytes # (A) 0.7 k/uL (0-1.0); Monocytes % (A) 6 %; Neutrophils # (A) 11.9 k/uL (1.3-7.7); Neutrophils % (A) 90 %; Platelet Count 275 k/uL (150-450); RBC 4.61 m/uL (3.80-5.40); WBC 13.3 k/uL (3.8-10.6)
[2021-08-19] MEDS: ALBUTEROL HFA INHALER INHALATION SCH ×4 (07:33→20:01)
[2021-08-19] MEDS: IPRATROPIUM-ALBUTEROL 3 ML NEB INHALATION SCH ×4 (07:36→20:01)
[2021-08-19 07:44] LABS: African American GFR (CKD) >90 (>60 ml/min/1.73 sqM); Anion Gap 4 mmol/L; Blood Urea Nitrogen 19 mg/dL (7-17); Calcium 10.1 mg/dL (8.4-10.2); Carbon Dioxide 30 mmol/L (22-30); Chloride 97 mmol/L (98-107); Glucose 105 mg/dL (74-99); Non-African American GFR(CKD) 86 (>60 ml/min/1.73 sqM); Potassium 3.6 mmol/L (3.5-5.1); Sodium 131 mmol/L (137-145)
[2021-08-19] MEDS: DILTIAZEM 125 MG in SODIUM CHLORIDE 0.9% 100 ML IV SCH ×2 (08:02→11:22)
[2021-08-19] MEDS: predniSONE 20 MG TAB PO SCH (08:12)
[2021-08-19] MEDS: CHOLECALCIFEROL 125 MCG (5000 IU) TABLET PO SCH (08:12)
[2021-08-19] MEDS: FUROSEMIDE 20 MG TAB PO SCH (08:12)
[2021-08-19] MEDS: APIXABAN 5 MG TAB PO SCH ×2 (08:13→20:31)
[2021-08-19] MEDS: amLODIPine 5 MG TAB PO SCH (08:13)
[2021-08-19] MEDS: SPIRONOLACTONE 25 MG TAB PO SCH (08:13)
[2021-08-19] MEDS: FENOFIBRATE 160 MG TAB PO SCH (08:13)
[2021-08-19] MEDS: AMIODARONE 200 MG TAB PO SCH ×2 (08:13→20:31)
[2021-08-19] MEDS: lisinopriL 20 MG TAB PO SCH ×2 (08:13→20:31)
[2021-08-19] MEDS: METOPROLOL TARTRATE 50 MG TAB PO SCH ×3 (08:13→20:31)
[2021-08-19] MEDS ORDERED: Potassium Replacement Protocol 1 EACH MISC MISCELLANE PRN (10:50)
[2021-08-19] MEDS ORDERED: POTASSIUM CHLORIDE ER 20 MEQ TAB.ER PO SCH (11:00)
[2021-08-19] MEDS: LEVOFLOXACIN 750MG-D5W PMX 750 MG in DEXTROSE/WATER 1 150ML.BAG IVPB SCH (11:23)
[2021-08-19 11:40] LABS: Glucose,Whole Blood 143 mg/dL (75-99)
[2021-08-19] MEDS: HYDROcodone/APAP 7.5-325MG 1 EACH TAB PO PRN (12:06)
--- NOTE | 2021-08-19 15:04 | P.PN ---
Subjective Progress Note Date: 08/19/21 Shortness of breath, A. fib with RVR, metastatic lung cancer, COVID-19 infectio n 75-year-old female patient came into the emergency department because of shortness of breath and chest pain and palpitations. The patient woke up at home having increased shortness of breath and dyspnea. Note that the patient has undergone a recent femur surgery for a right distal femoral shaft fracture and this was a comminuted fracture and this surgery was done on 07/19/2021. At that time, the patient had a fall and she sustained a fracture to her right femur. Noted the patient also has history of small cell lung cancer, advanced and progressive and the patient had an incidental COVID 19 infection during her earlier hospitalization in July 2021. She is known to have nonischemic cardiomyopathy with impaired ejection fraction of 35%. She has paroxysmal atrial fibrillation maintained on long-term anticoagulation. She has hypertension, diabetes mellitus and she is a former smoker. EMS found this patient having tachycardia and a heart rate was ranging between 101 170. The patient came into the ED and the patient had a pulse ox of 91% on room air oxygen. She was having some shortness of breath. EKG showed atrial fibrillation with rapid ventricular response. The patient also had a CT angiogram in the ED that was consistent with underlying small cell lung cancer. The patient had perihilar and left upper lobe masses noted were bulkier measuring 8.3 x 4.5 cm in size and the patient also had an enlarging right paratracheal nodes measuring up to 2.5 cm in size and right midlung pulmonary nodule, stable in addition to new lytic bone disease involving the T2 spinous process. There was also new small right-sided pleural effusion, progressive worsening and enlargement of the consolidation in the posterior right hilar lesion with a masslike configuration measuring 6.4 x 6 cm in size with possibly some endobronchial extension. There was also a new volume loss and consolidation in the right middle lobe in addition to patchy groundglass pulmonary infiltrates and a right upper lobe and portions of the right lower lobe. Based on all this, the patient was started on Cardizem drip for rate control and currently she is running at 10 mg an hour. She is on normal saline at the rate of 130s is an hour. Note that the patient has history of atrial fibrillation. She has been receiving amiodarone 200 mg by mouth on a daily basis in combination with metoprolol 37.5 mg by mouth 3 times a day. The patient is also on long-term and accommodation with Eliquis 5 mg by mouth twice a day. on today's evaluation of 08/14/2021, the patient is feeling slightly better. Atrial fibrillation is under better control and the patient is currently on a combination of metoprolol and amiodarone for rate control and the patient is on long-term articulation with Eliquis. The patient is also on a prednisone burst taper starting with 40 mg of the started today. She is covered with broad- spectrum antibiotics including a combination of Levaquin and clindamycin. No significant complaints. No hemoptysis. No pleurisy.no other new complaint that was since yesterday. On 08/15/2021 patient seen in follow-up on selective care unit. She has just returned from left supraclavicular left nodule biopsy that was done by interventional radiology. She states her breathing is a bit raspy today, no fevers overnight, occasional cough with production of yellow-colored phlegm. She remains on empiric emetics no form of clindamycin and Levaquin. She is on prednisone 40 mg daily, her IV fluids have been hep-locked, and patient is on home dose Lasix 20 mg daily and she will receive additional dose of IV Lasix 40 mg. She has been resumed on her eliquis, for history of chronic atrial fibrillation, her rate is currently better controlled. Was no acute events overnight. Her pro-calcitonin level was negative at her 0.18. However we kept her on antibiotics in view of postobstructive pneumonia related to lung cancer On 08/16/2021 patient seen in follow-up on selective care unit. Patient is resting in bed, breathing is nonlabored, slightly congested cough, we'll get had nebulized treatments. Otherwise has been stable, she remains on 3 L of oxygen pulse ox is 95%. No fever or chills. Hemodynamically she has been stable, no complex chest discomfort. Her supraclavicular lymph node biopsy results are still pending at this time. Today's labs have been reviewed, white blood cell count was 9.0, hemoglobin is 10.1, sodium is 132, the rest of electrolytes and renal profile were unremarkable. Pro-calcitonin level was negative at 0.18. Patient continues on once daily dose of Lasix and she received an additional dose of IV Lasix yesterday. She remains on Eliquis 5 mg twice daily, heart rate is controlled. Remains on empiric antibiotics with clindamycin and Levaquin for possibility of postobstructive pneumonia On 08/17/2021 patient seen in follow-up on selective care unit. Breathing fairly comfortable, but still sounding congested, lung sounds are positive for diffuse rhonchi, occasional cough with production of yellowish colored phlegm. No hemoptysis, she has been stable, still short of breath with exertion, but vital signs have been stable, she remains on oral Lasix, she is on Levaquin and clindamycin, she is on nebulized bronchodilators and oral prednisone. Today's labs have been reviewed, white blood cell count was 12.2, hemoglobin is 10.8, sodium is 1:30, potassium 3.9, the rest of electrolytes and renal profile were unremarkable. Core biopsy of a right supraclavicular lymph node showed metastatic squamous cell carcinoma. Clinically patient has been relatively stable, she has been tolerating in relation to the bathroom, she remains on supplemental oxygen, she is hoping to be able to return home. The 2021, patient is being seen for a follow-up. Rather stable since yesterday. However, the patient had an episode earlier this morning with the patient went into atrial fibrillation rapid ventricular response and the patient had several increased shortness of breath. Cardiology was informed and the patient was kept on oral amiodarone and the patient was started on a Cardizem drip which is currently running at 5 mg an hour. Her cardiac rhythm switched back into sinus. She is having episodes approximately atrial fibrillation. Meanwhile, the patient is still in long-term anticoagulation with Eliquis. The patient underwent a fine-needle aspiration of the right clavicular lymph node that do not to be consistent with small cell lung cancer. As such, the patient is a combination of small and non-small cell lung cancer/squamous cell carcinoma. She is being also treated for an acute COPD exacerbation. She is on a combination of bronchodilators. She remains on antibiotics and the patient is currently on examination Levaquin and clindamycin. The patient is switched to prednisone burst taper. Less bronchospastic and wheezy compared to yesterday. No other complaints otherwise for now. She is communicating. No hemoptysis no pleurisy. No syncope. 08/19/2021, I'm seeing the patient for a follow-up. Note that the patient is still having episodes of atrial fibrillation. After going to no sinus rhythm yesterday, this morning the patient went again to A. fib with RVR similar to yesterday's morning. Accordingly, the patient was started on Cardizem at 5 mg an hour. The patient remains on anticoagulation with Eliquis. This time, she is less symptomatic and the patient is not having any significant shortness of breath or chest discomfort. As mentioned earlier, she has extensive cancer history including a combination of small cell and non-small cell lung cancer. The patient has bulky tumor in her chest bilaterally. The patient is also being treated for an acute COPD exacerbation. Her COPD stable and the patient is covered with broad-spectrum antibiotics including a combination of Levaquin and clindamycin. The patient on a prednisone burst taper. No pleurisy. No hemoptysis. No other complaints otherwise for now. The white cell count of 15.3 with hemoglobin 10.9. Sodium level is at 131. Objective - Vital Signs Vital signs: Vital Signs Temp 98.0 F 08/19/21 12:00 Pulse 66 08/19/21 14:00 Resp 18 08/19/21 14:00 BP 171/79 08/19/21 12:00 Pulse Ox 90 L 08/19/21 12:00 Intake & Output 08/18/21 08/19/21 08/19/21 18:59 06:59 18:59 Intake Total 267.417 245.667 Output Total 0 200 0 Balance 267.417 -200 245.667 Intake: Intake, IV Titration 27.417 5.667 Amount Diltiazem 125 mg In 27.417 5.667 Sodium Chloride 0.9% 100 ml @ 5 MG/HR 5 mls/hr IV .Q24H [facility] Rx#:[id number] Oral 240 240 Output: Urine 200 Stool 0 0 Other: Voiding Method Toilet Toilet Toilet # Voids 2 600 - Exam GENERAL EXAM: Alert, very pleasant, 75-year-old white female, on 3 L of oxygen comfortable in no apparent distress. HEAD: Normocephalic/atraumatic. EYES: Normal reaction of pupils, equal size. Conjunctiva pink, sclera white. NOSE: Clear with pink turbinates. THROAT: No erythema or exudates. NECK: No masses, no JVD, no thyroid enlargement, no adenopathy. CHEST: No chest wall deformity. Symmetrical expansion. LUNGS: Equal air entry with diffuse rhonchi CVS: Irregular rate and rhythm consistent with atrial fibrillation normal S1 and S2, no gallops, no murmurs, no rubs ABDOMEN: Soft, nontender. No hepatosplenomegaly, normal bowel sounds, no guarding or rigidity. EXTREMITIES: No clubbing, no edema, no cyanosis, 2+ pulses and upper and lower extremities. MUSCULOSKELETAL: Muscle strength and tone normal. SPINE: No scoliosis or deformity SKIN: No rashes CENTRAL NERVOUS SYSTEM: Alert and oriented -3. No focal deficits, tone is normal in all 4 extremities. PSYCHIATRIC: Alert and oriented -3. Appropriate affect. Intact judgment and insight. - Labs CBC & Chem 7: 08/19/21 06:59 08/19/21 06:59 Labs: Abnormal Lab Results - Last 24 Hours (Table) 08/18/21 08/18/21 08/19/21 Range/Units 16:36 19:42 06:59 WBC (3.8-10.6) k/uL Hgb (11.4-16.0) gm/dL MCH (25.0-35.0) pg MCHC (31.0-37.0) g/dL Neutrophils # (1.3-7.7) k/uL Lymphocytes # (1.0-4.8) k/uL Sodium 131 L (137-145) mmol/L Chloride 97 L (98-107) mmol/L BUN 19 H (7-17) mg/dL Glucose 105 H (74-99) mg/dL POC Glucose (mg/dL) 167 H 149 H (75-99) mg/dL 08/19/21 08/19/21 Range/Units 06:59 11:28 WBC 13.3 H (3.8-10.6) k/uL Hgb 10.9 L (11.4-16.0) gm/dL MCH 23.6 L (25.0-35.0) pg MCHC 29.2 L (31.0-37.0) g/dL Neutrophils # 11.9 H (1.3-7.7) k/uL Lymphocytes # 0.5 L (1.0-4.8) k/uL Sodium (137-145) mmol/L Chloride (98-107) mmol/L BUN (7-17) mg/dL Glucose (74-99) mg/dL POC Glucose (mg/dL) 143 H (75-99) mg/dL Assessment and Plan Plan: #1. Chronic atrial fibrillation with rapid ventricular response, currently better controlled, and patient remains on a combination of metoprolol, amiodarone, and Eliquis. Nevertheless, the patient continues to have episodes of atrial fibrillation with RVR. Cardizem drip was restarted again 5 mg an hour. Note that the patient is similar events yesterday morning and she converted into normal sinus rhythm. There is an ongoing recurrent belching atrial fibrillation with RVR. Cardiology is on the case. #2. Metastatic small cell lung cancer with skeletal involvement. Based on the computed tomography scan findings there is interval progression of the hilar masses bilaterally in addition to the lymphadenopathy and evidence of skeletal metastasis at the level of T2. Patient has received chemotherapy, radiation therapy and immunotherapy per medical oncology and radiation oncology. Patient is under the care of Dr. Gil and Dr. David Oliva. biopsy was consistent with small cell lung cancer the patient is also known to have metastatic squamous cell carcinoma. #3. Supraclavicular adenopathy on the right, and this was biopsied today by interventional radiology on 08/15/2021, with biopsy results showing metastatic squamous cell carcinoma #4. Recent COVID 19 infection in the beginning of July 2021, at the time this was a incidental finding, and patient was fairly asymptomatic. Patient continues to test positive for COVID-19 during this admission in July 2021 #5. Recent acute right femoral comminuted and displaced fracture related to a fall, status post surgical repair on 07/13/2021 #6. Nonischemic cardiomyopathy with an ejection fraction of 35% #7. Paroxysmal atrial fibrillation #8. Hypertension #9. Diabetes mellitus #10. Hyperlipidemia Plan Management of atrial fibrillation by cardiology, treatment is appropriate at this point in time Overall pulmonary status is stable. The most recent A. fib RVR was less symptomatic compared to yesterday. Continue bronchodilators Prednisone burst taper Biopsy of the supra clavicular lymph node was noted Prognosis long-term is poor baseline above-mentioned comorbidities Complete a course of antibiotics We'll continue to follow, Long-term prognosis poor as the patient has bulky tumors in her chest and advanced lung disease. This is along with her rest of the comorbidities including nonischemic cardiomyopathy, diabetes hypertension and COPD.
[2021-08-19 16:33] LABS: Glucose,Whole Blood 174 mg/dL (75-99)
[2021-08-19] MEDS: metFORMIN 500 MG TAB PO SCH (17:18)
[2021-08-19] MEDS: ATORVASTATIN 10 MG TAB PO SCH (20:31)
[2021-08-19 20:58] LABS: Glucose,Whole Blood 146 mg/dL (75-99)
[2021-08-20] MEDS: CLINDAMYCIN 300 MG in DEXTROSE 5% IN WATER 50 ML IVPB SCH ×6 (00:05→11:53)
--- NOTE | 2021-08-20 00:25 | P.PN ---
Subjective Progress Note Date: 08/19/21 This is a 75-year-old female with past medical history of recent COVID-19 07/24 ( pathology ?),recent surgical repair and intramedullary nail fixation 07/13/21 related to displaced comminuted fracture distal diaphysis right femur, status post fall, metastatic lung cancer, paroxysmal atrial fibrillation on Eliquis, former nicotine dependence, diabetes mellitus II, hypertension and multiple other medical issues transported to the ER via EMS with complaints of sharp chest pain radiating to the back,palpitations accompanied by shortness of breath. EMS reports heart rates ranging from 100-170. O2 sat of 91% on room air on admission. Congested, reporting occasional for Dr. cough with yellow phlegm. Chest x-ray reporting volume loss in the right hemothorax, no pleural effusion or pneumothorax ,possible superimposed pneumonia. Afebrile, T-max 99.2, WBC 11.3. Hemoglobin 11, platelets 238, INR 1.2, d-dimer 8.52.Chest CTA no definite pulmonary embolus,S anterior left perihilar and left upper lobe ma ss, enlarging right paratracheal nodes measuring up to 2.5 cm, right midlung pulmonary nodule stable to slightly larger, new lytic osseous disease possible of the T2 spinous process, new small right pleural effusion, progressive worsening and enlarging consolidation in the posterior right perihilar region now with a masslike configuration measuring up to 6.4 x 6.2 cm, new volume loss and consolidation likely pneumonia right middle lobe additional patchy groundglass infiltrates throughout the right upper lobe and portions of the right lower lobe. Moderate degenerative disc disease mid to lower thoracic spine, pneumonic in appearance to the T2 spinous process. Sodium 132 potassium 3.6 bicarb 25, BUN 11, creatinine 0.62. Blood sugars controlled, lactic acid 2, magnesium 1.6, alk phos 153, troponin negative 1, proBNP 916. Coronavirus detected. EKG reporting atrial fibrillation with RVR, heart rates in the 150s. 08/15/2021 maintained on amiodarone , beta jalen ,telemetry sinus rhythm . Anticoagulated on eliquis. Congested, occasional productive cough with yellow sputum. Continues on empiric antibiotics for suspected postobstructive pneumonia.NPO, supraclavicular lymph node biopsy scheduled for today.Denies chest pain, palpitations. Maintaining O2 sats in the 90s on 3 L nasal cannula. Afebrile. 08/16/2021 Patient is seen and evaluated in follow up this morning and is being followed by multiple medical consultations. Patient is status post lymph node biopsy and results are pending. Oncology following along with cardiology and pulmonary. Patient is maintained on levaquin and clindamycin. Patient also receiving breathing inhalational treatments and oral steroids and will continue. Patient is currently sinus rhythm and cardiology following. On Metoprolol, oral amiod arone, and eliquis. Patient is afebrile. Patient denies chest pain or worsening shortness of breath. 08/17/2021 Patient is seen in follow up today and is scheduled to receive radiation therapy with Dr. Oliva this morning. Patient continues with shortness of breath and will have nursing do home 02 evaluation. Script given to case management for oxygen in the outpatient setting. 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 Patient to follow with Dr. Oseguera outpatient to further determine treatment moving forward. Patient with some mild lower extremity edema noted and continued on oral lasix. Will add compression stockings. Encouraged increased activity as tolerated. Chest xray ordered and shows bilateral perihilar mass or consolidation correlate for neoplasm and superimposed interstitial edema or interstitial pneumonitis or lymphangitic metastases in the differential. Patient is continued on antibiotics along with oral prednisone and breathing inhalational treatments. 08/18/2021 Patient is currently resting in the bed comfortably. Awake alert and oriented x3. Overnight patient went into rapid regular rate and was started on Cardizem drip. Converted back to sinus rhythm this morning. Patient was also having worsening shortness of breath and was given a dose of IV Lasix. Continued on oral Lasix otherwise. Patient is also anticoagulated with Eliquis and also on amiodarone.. Patient is being continued on bronchodilators. On antibiotics in the form of Levaquin and clindamycin. Patient is being continued on prednisone 40 mg daily. Previous laboratory data reviewed. Blood pressure is better controlled. Curre ntly requiring 3 L oxygen via nasal cannula. Pulmonary and oncology is on board. 08/19/2021 Patient is currently in the select care unit. Resting in the bed. Awake alert and oriented x3. Patient went into atrial fibrillation with rapid regular rate again. Cardizem was restarted. Currently on anticoagulation in the form of Eliquis. Also on amiodarone. Cardiology was reconsulted. Otherwise patient is being continued on prednisone for COPD exacerbation. Also on broad-spectrum antibiotics in the form of Levaquin and clindamycin. Patient denied any complaints of chest pain or worsening shortness of breath. No nausea vomiting abdominal pain or diarrhea. Denies any headache or dizziness or lightheadedness. Laboratory data showed WBC 13.3 hemoglobin 10.9 and platelets 235 sodium 131 potassium 3.6 chloride 97 BUN 19 and creatinine 0.69 and blood sugar is 105 calcium 10.1 Current medications reviewed. Review of systems: Constitutional: No reports of fatigue, fever, or chills Cardiovascular: No reports of chest pain or palpitations Respiratory: reports of continued shortness of breath and cough GI: No reports of nausea, vomiting, or diarrhea : No reports of dysuria or retention Neurovascular: reports of generalized weakness All medications have been reviewed Objective - Vital Signs Vital signs: Vital Signs Temp 98.3 F 08/19/21 15:42 Pulse 73 08/19/21 15:42 Resp 18 08/19/21 15:42 BP 155/75 08/19/21 15:42 Pulse Ox 91 L 08/19/21 15:42 Intake & Output 08/18/21 08/19/21 08/19/21 18:59 06:59 18:59 Intake Total 267.417 245.667 Output Total 0 200 0 Balance 267.417 -200 245.667 Intake: Intake, IV Titration 27.417 5.667 Amount Diltiazem 125 mg In 27.417 5.667 Sodium Chloride 0.9% 100 ml @ 5 MG/HR 5 mls/hr IV .Q24H [facility] Rx#:[id number] Oral 240 240 Output: Urine 200 Stool 0 0 Other: Voiding Method Toilet Toilet Toilet # Voids 2 600 4 # Bowel Movements 2 - Exam PHYSICAL EXAM: GENERAL: 75 year old female who is awake, alert and oriented 3, Sitting up in bed, currently on 3 L via NC HEENT: Conjunctivae normal. eyes normal. Oral mucosa moist NECK: Supple, No JVD. CARDIOVASCULAR: S1, S2 regular. No murmur RESPIRATION: Breath sounds diminished in the bases. No rhonchi , basilar crackles ABDOMEN: Soft, non-tender . No guarding. no masses palpable. No ascites, No hepatosplenomegaly.Bowel sounds heard. EXTREMITIES: mild edema. Denies calf tenderness, positive DP pulse. NERVOUS SYSTEM: Cranial N 2-12 grossly normal. No focal deficits. Strength and sensation grossly intact. Skin: Warm and dry, no rash - Labs CBC & Chem 7: 08/19/21 06:59 08/19/21 06:59 Labs: Abnormal Lab Results - Last 24 Hours (Table) 08/18/21 08/19/21 08/19/21 Range/Units 19:42 06:59 06:59 WBC 13.3 H (3.8-10.6) k/uL Hgb 10.9 L (11.4-16.0) gm/dL MCH 23.6 L (25.0-35.0) pg MCHC 29.2 L (31.0-37.0) g/dL Neutrophils # 11.9 H (1.3-7.7) k/uL Lymphocytes # 0.5 L (1.0-4.8) k/uL Sodium 131 L (137-145) mmol/L Chloride 97 L (98-107) mmol/L BUN 19 H (7-17) mg/dL Glucose 105 H (74-99) mg/dL POC Glucose (mg/dL) 149 H (75-99) mg/dL 08/19/21 08/19/21 Range/Units 11:28 16:32 WBC (3.8-10.6) k/uL Hgb (11.4-16.0) gm/dL MCH (25.0-35.0) pg MCHC (31.0-37.0) g/dL Neutrophils # (1.3-7.7) k/uL Lymphocytes # (1.0-4.8) k/uL Sodium (137-145) mmol/L Chloride (98-107) mmol/L BUN (7-17) mg/dL Glucose (74-99) mg/dL POC Glucose (mg/dL) 143 H 174 H (75-99) mg/dL Assessment and Plan Assessment: Paroxysmal atrial fibrillation with RVR, started on Cardizem drip. recurrent episodes. Possible right lower lobe pneumonia, post-obstructive, maintained on empiric antibiotics Right Supraclavicular adenopathy, 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 Patient does have both small cell and non-small cell lung cancer. Recent displaced comminuted fracture distal diaphysis right femur, status post fall. Status post surgical repair and intramedullary nail fixation 07/13/21 Recent COVID-19 infection, continues to test positive Metastatic Lung CA, status post chemotherapy, currently on radiation. Chest CTA reporting progression, skeletal. Receiving radiation today Chronic CHF with mildly reduced systolic dysfunction History of nonischemic cardiomyopathy with EF of 35% Acute hypoxic respiratory failure secondary to the above Diabetes mellitus type II Moderate to severe mitral regurgitation Moderate tricuspid regurgitation Hypertension Former nicotine dependence GI prophylaxis DVT prophylaxis Full code Plan: Recommend to continue with IV antibiotics with breathing inhalational treatments and oral steroids, pulmonary following Patient is status post lymph node biopsy, results showing pathology positive for squamous cell Oncology following, Radiation onc Dr. Oliva as well and receiving radiation today, patient to follow with Dr. Oseguera outpatient transitioned to oral amiodarone, metoprolol, and continued on eliquis Encouraged increased activity as tolerated Continue with right knee immobilizer Encouraged oral intake Continue cough and deep breathing, incentive spirometer encouraged 10 times per hour while awake Recommend repeat labs in am Continue electrolyte replacement protocol as needed Overall Prognosis is poor and guarded Patient being arranged for home 02 of 3L Possible discharge in 24-48 hours. Time with Patient: Greater than 30
[2021-08-20 05:28] VITALS: TEMP 98.1
[2021-08-20 06:31] LABS: Glucose,Whole Blood 90 mg/dL (75-99)
[2021-08-20 07:25] LABS: Basophils % (A) 0 %; Eosinophils # (A) 0.1 k/uL (0-0.7); Eosinophils % (A) 0 %; HCT 37.5 % (34.0-46.0); HGB 10.9 gm/dL (11.4-16.0); Hypochromasia Marked; Lymphocytes # (A) 0.7 k/uL (1.0-4.8); Lymphocytes % (A) 5 %; MCH 23.5 pg (25.0-35.0); MCV 81.3 fL (80.0-100.0); Mean Platelet Volume 8.1; Monocytes # (A) 0.8 k/uL (0-1.0); Monocytes % (A) 5 %; Neutrophils % (A) 89 %; Platelet Count 276 k/uL (150-450); RBC 4.61 m/uL (3.80-5.40); RDW 14.8 % (11.5-15.5); WBC 14.7 k/uL (3.8-10.6)
[2021-08-20 07:41] LABS: Calcium 10.3 mg/dL (8.4-10.2); Potassium 4.7 mmol/L (3.5-5.1)
[2021-08-20] MEDS: FENOFIBRATE 160 MG TAB PO SCH (09:03)
[2021-08-20] MEDS: AMIODARONE 200 MG TAB PO SCH (09:03)
[2021-08-20] MEDS: METOPROLOL TARTRATE 50 MG TAB PO SCH ×2 (09:03→17:00)
[2021-08-20] MEDS: predniSONE 20 MG TAB PO SCH (09:03)
[2021-08-20] MEDS: APIXABAN 5 MG TAB PO SCH (09:03)
[2021-08-20] MEDS: amLODIPine 5 MG TAB PO SCH (09:03)
[2021-08-20] MEDS: SPIRONOLACTONE 25 MG TAB PO SCH (09:03)
[2021-08-20] MEDS: CHOLECALCIFEROL 125 MCG (5000 IU) TABLET PO SCH (09:03)
[2021-08-20] MEDS: lisinopriL 20 MG TAB PO SCH (09:03)
[2021-08-20] MEDS: FUROSEMIDE 20 MG TAB PO SCH (09:03)
[2021-08-20] MEDS: ALBUTEROL HFA INHALER INHALATION SCH ×3 (09:14→16:56)
[2021-08-20] MEDS: IPRATROPIUM-ALBUTEROL 3 ML NEB INHALATION SCH ×3 (09:15→16:56)
[2021-08-20 11:30] VITALS: BMI 30.9
[2021-08-20 11:38] LABS: Glucose,Whole Blood 123 mg/dL (75-99)
[2021-08-20] MEDS: LEVOFLOXACIN 750MG-D5W PMX 750 MG in DEXTROSE/WATER 1 150ML.BAG IVPB SCH (11:52)
--- NOTE | 2021-08-20 14:24 | P.PN ---
Subjective Progress Note Date: 08/20/21 HISTORY OF PRESENT ILLNESS: This is a 75-year-old female with a past medical history significant for nonischemic cardiomyopathy, paroxysmal atrial fibrillation on anticoagulation wi th Eliquis, hypertension, type 2 diabetes, former nicotine dependence, and metastatic small cell lung cancer, covid-19 in 07/2021, recent femur surgery for a right distal femoral shaft fracture done on 07/19/2021. Patient follows in the office with Dr. Dee. We have been asked to see the patient in consultation for atrial fibrillation with RVR. Patient presented to the emergency department with complaints of shortness of breath. The patient woke up at home having increased shortness of breath and dyspnea. She denies any chest pain or palpitations. She denies any symptoms of orthopnea or PND. On admission patient found atrial fibrillation with ventricular response. Patient was started on a Cardizem drip and converted to sinus mechanism. DIAGNOSTICS -Echocardiogram completed 07/13/2021 revealed ejection fraction 55-60%, right ventricle mildly enlarged, mild mitral regurgitation, mild tricuspid regurgitation 08/16/2021 Patient seen and examined at bedside, no acute distress. Patient underwent right supraclavicular lymph node biopsy yesterday. She denies any chest pain. Her breathing is stable no further shortness of breath Telemetry reviewed patient in sinus mechanism, heart rate 60s to 70s. She is currently maintained on amiodarone 200 mg twice a day, Eliquis 5 mg twice a day, atorvastatin 10 mg nightly, Lasix 20 mg daily, lisinopril 20 mg nightly, metoprolol 50 mg 3 times a day 08/20/2021 Cardiology was asked to reevaluate patient secondary to A. fib with RVR. Currently the patient went into A. fib with RVR yesterday. She was placed on a Cardizem drip. She is maintaining sinus mechanism this morning. She denies CP. She denies SOB at rest. Vital signs stable. PHYSICAL EXAM: VITAL SIGNS: Reviewed. GENERAL: Well-developed in no acute distress. NECK: Supple. No JVD or thyromegaly LUNGS: Respirations even and unlabored. Lungs essentially clear to auscultation bilaterally. HEART: Regular rate and rhythm. S1 and S2 heard. EXTREMITIES: Normal range of motion. No clubbing or cyanosis. Peripheral puls es intact. No lower extremity edema ASSESSMENT: Paroxysmal atrial fibrillation with RVR, on anticoagulation outpatient with [facility], maintaining sinus mechanism Metastatic small cell lung cancer with skeletal involvement,CAT scan findings, there is interval progression of disease History of Hypertension Hyperlipidemia Type 2 Diabetes Former nicotine dependence History of nonischemic cardiomyopathy, EF 35% in 2019, with recovery of LV function Recent femur surgery for a right distal femoral shaft fracture done on 07/19/2021 PLAN: Continue current cardiac medications Continue telemetry monitoring Patient is stable for discharge from a cardiac standpoint Nurse practitioner note has been reviewed by physician. Signing provider agrees with the documented findings, assessment, and plan of care. Objective - Vital Signs Vital signs: Vital Signs Temp 98.1 F 08/20/21 04:00 Pulse 68 08/20/21 08:00 Resp 18 08/20/21 08:00 BP 149/70 08/20/21 08:00 Pulse Ox 95 08/20/21 08:00 Intake & Output 08/19/21 08/20/21 08/20/21 18:59 06:59 18:59 Intake Total 245.667 240 Output Total 0 0 Balance 245.667 0 240 Weight 81.7 kg Intake: Intake, IV Titration 5.667 Amount Diltiazem 125 mg In 5.667 Sodium Chloride 0.9% 100 ml @ 5 MG/HR 5 mls/hr IV .Q24H [facility] Rx#:[id number] Oral 240 240 Output: Stool 0 0 Other: Voiding Method Toilet Toilet # Voids 4 0 1 # Bowel Movements 2 - Labs CBC & Chem 7: 08/20/21 05:43 08/20/21 05:43 Labs: Abnormal Lab Results - Last 24 Hours (Table) 08/19/21 08/19/21 08/20/21 Range/Units 16:32 20:23 05:43 WBC (3.8-10.6) k/uL Hgb (11.4-16.0) gm/dL MCH (25.0-35.0) pg MCHC (31.0-37.0) g/dL Neutrophils # (1.3-7.7) k/uL Lymphocytes # (1.0-4.8) k/uL Sodium 133 L (137-145) mmol/L Carbon Dioxide 33 H (22-30) mmol/L BUN 22 H (7-17) mg/dL Glucose 73 L (74-99) mg/dL POC Glucose (mg/dL) 174 H 146 H (75-99) mg/dL Calcium 10.3 H (8.4-10.2) mg/dL 08/20/21 08/20/21 Range/Units 05:43 11:37 WBC 14.7 H (3.8-10.6) k/uL Hgb 10.9 L (11.4-16.0) gm/dL MCH 23.5 L (25.0-35.0) pg MCHC 29.0 L (31.0-37.0) g/dL Neutrophils # 13.0 H (1.3-7.7) k/uL Lymphocytes # 0.7 L (1.0-4.8) k/uL Sodium (137-145) mmol/L Carbon Dioxide (22-30) mmol/L BUN (7-17) mg/dL Glucose (74-99) mg/dL POC Glucose (mg/dL) 123 H (75-99) mg/dL Calcium (8.4-10.2) mg/dL
[2021-08-20 14:53] VITALS: BP 151/73; PULSE 61
--- NOTE | 2021-08-20 15:31 | P.PN ---
Subjective Progress Note Date: 08/20/21 Principal diagnosis: Atrial fibrillation with RVR and small cell lung cancer 75-year-old female patient came into the emergency department because of shortness of breath and chest pain and palpitations. The patient woke up at home having increased shortness of breath and dyspnea. Note that the patient has undergone a recent femur surgery for a right distal femoral shaft fracture and this was a comminuted fracture and this surgery was done on 07/19/2021. At that time, the patient had a fall and she sustained a fracture to her right femur. Noted the patient also has history of small cell lung cancer, advanced and progressive and the patient had an incidental COVID 19 infection during her earlier hospitalization in July 2021. She is known to have nonischemic car diomyopathy with impaired ejection fraction of 35%. She has paroxysmal atrial fibrillation maintained on long-term anticoagulation. She has hypertension, diabetes mellitus and she is a former smoker. EMS found this patient having tachycardia and a heart rate was ranging between 101 170. The patient came into the ED and the patient had a pulse ox of 91% on room air oxygen. She was having some shortness of breath. EKG showed atrial fibrillation with rapid ventricular response. The patient also had a CT angiogram in the ED that was consistent with underlying small cell lung cancer. The patient had perihilar and left upper lobe masses noted were bulkier measuring 8.3 x 4.5 cm in size and the patient also had an enlarging right paratracheal nodes measuring up to 2.5 cm in size and right midlung pulmonary nodule, stable in addition to new lytic bone disease involving the T2 spinous process. There was also new small right-sided pleural effusion, progressive worsening and enlargement of the consolidation in the posterior right hilar lesion with a masslike configuration measuring 6.4 x 6 cm in size with possibly some endobronchial extension. There was also a new volume loss and consolidation in the right middle lobe in addition to patchy groundglass pulmonary infiltrates and a right upper lobe and portions of the right lower lobe. Based on all this, the patient was started on Cardizem drip for rate control and currently she is running at 10 mg an hour. She is on normal saline at the rate of 130s is an hour. Note that the patient has history of atrial fibrillation. She has been receiving amiodarone 200 mg by mouth on a daily basis in combination with metoprolol 37.5 mg by mouth 3 times a day. The patient is also on long-term and accommodation with Eliquis 5 mg by mouth twice a day. Reevaluated today on 08/20/21, patient is on a monitor bed, she is now at 3 L nasal cannula, normal sinus rhythm rate of 73/m, does not seem to be in any distress. Her atrial fibrillation is under control. Patient is anticoagulated with eliquis pulmonary-garcia she is doing well hardly any cough no wheezing no shortness of breath. Patient is now on oral prednisone, she is on diuretics, and she is on Levaquin and clindamycin. Chest x-ray from 08/17 showed bilateral perihilar mass and/or consolidation with superimposed interstitial edema Objective - Vital Signs Vital signs: Vital Signs Temp 98.1 F 08/20/21 12:00 Pulse 61 08/20/21 14:00 Resp 18 08/20/21 14:00 BP 151/73 08/20/21 12:00 Pulse Ox 96 08/20/21 12:00 Intake & Output 08/19/21 08/20/21 08/20/21 18:59 06:59 18:59 Intake Total 245.667 240 Output Total 0 0 Balance 245.667 0 240 Weight 81.7 kg Intake: Intake, IV Titration 5.667 Amount Diltiazem 125 mg In 5.667 Sodium Chloride 0.9% 100 ml @ 5 MG/HR 5 mls/hr IV .Q24H [facility] Rx#:[id number] Oral 240 240 Output: Stool 0 0 Other: Voiding Method Toilet Toilet # Voids 4 0 1 # Bowel Movements 2 - Exam GENERAL EXAM: Revealed a 75-year-old female in no distress, on 3 L nasal cannula. HEAD: Normocephalic/atraumatic. ENT: PERRLA, EOMI, nonicteric, no neck masses no JVD. CHEST: No chest wall deformity. Symmetrical expansion. LUNGS: Symmetrical chest expansion, crackles at the bases. CVS: Normal S1 and S2, no S3 gallop, no murmur. ABDOMEN: Soft, nontender. No hepatosplenomegaly, normal bowel sounds, no guarding or rigidity. EXTREMITIES: No clubbing edema or cyanosis. Good pulses bilaterally. MUSCULOSKELETAL: Muscle strength and tone normal. SKIN: No rashes CENTRAL NERVOUS SYSTEM: Alert and oriented -3. No focal deficits, tone is no rmal in all 4 extremities. PSYCHIATRIC: Normal mood affect and normal mental status examination. - Labs CBC & Chem 7: 08/20/21 05:43 08/20/21 05:43 Labs: Abnormal Lab Results - Last 24 Hours (Table) 08/19/21 08/19/21 08/20/21 Range/Units 16:32 20:23 05:43 WBC (3.8-10.6) k/uL Hgb (11.4-16.0) gm/dL MCH (25.0-35.0) pg MCHC (31.0-37.0) g/dL Neutrophils # (1.3-7.7) k/uL Lymphocytes # (1.0-4.8) k/uL Sodium 133 L (137-145) mmol/L Carbon Dioxide 33 H (22-30) mmol/L BUN 22 H (7-17) mg/dL Glucose 73 L (74-99) mg/dL POC Glucose (mg/dL) 174 H 146 H (75-99) mg/dL Calcium 10.3 H (8.4-10.2) mg/dL 08/20/21 08/20/21 Range/Units 05:43 11:37 WBC 14.7 H (3.8-10.6) k/uL Hgb 10.9 L (11.4-16.0) gm/dL MCH 23.5 L (25.0-35.0) pg MCHC 29.0 L (31.0-37.0) g/dL Neutrophils # 13.0 H (1.3-7.7) k/uL Lymphocytes # 0.7 L (1.0-4.8) k/uL Sodium (137-145) mmol/L Carbon Dioxide (22-30) mmol/L BUN (7-17) mg/dL Glucose (74-99) mg/dL POC Glucose (mg/dL) 123 H (75-99) mg/dL Calcium (8.4-10.2) mg/dL Assessment and Plan Assessment: Impression: Paroxysmal atrial fibrillation, patient presented with atrial fibrillation and RVR, presently in normal sinus rhythm. Metastatic small cell lung cancer with skeletal involvement Supraclavicular adenopathy with positive biopsy showing squamous cell carcinoma History of covid 19 pneumonia in July, it was incidental finding. History of right femoral comminuted and displaced fracture related to fall requiring repair on July 13 Nonischemic cardiomyopathy with ejection fraction of 35% Hypertension Type 2 diabetes Dyslipidemia Recommendation: Continue present supportive care measures Continue anticoagulation Continue bronchodilators Continue antibiotics, finish a full course of it. Continue diuretics Continue treatment for her hypertension diabetes and COPD Patient to be considered for discharge planning and follow up with oncology. Long-term prognosis is extremely poor and guarded. May need home oxygen. Time with Patient: Less than 30
--- NOTE | 2021-08-20 16:28 | P.DS ---
Providers Date of admission: 08/13/21 12:26 Expected date of discharge: 08/20/21 Attending physician: Francisco Ramirez Consults: 08/13/21 12:04 Consult Physician Routine Consulting Provider: Eugenio Tucker Consult Reason/Comments: lung cancer Do you want consulting provider notified?: Yes 08/13/21 12:05 Consult Physician Routine Consulting Provider: Wang Cornejo Consult Reason/Comments: afib rvr Do you want consulting provider notified?: Yes Consult Physician Routine Consulting Provider: Benedicto Bearden Consult Reason/Comments: lung cancer Do you want consulting provider notified?: Yes 08/19/21 10:48 Consult Physician Urgent Consulting Provider: Flaco Narvaez Consult Reason/Comments: A-Fib RVR Do you want consulting provider notified?: Yes Primary care physician: Francisco Ramirez [facility] Course: Final Diagnoses: Chronic recurrent Paroxysmal atrial fibrillation with RVR, status post Cardizem drip Possible right lower lobe pneumonia, postobstructive, maintained on empiric antibiotics Right Supraclavicular adenopathy, 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 Recent displaced comminuted fracture distal diaphysis right femur, status post fall. Status post surgical repair and intramedullary nail fixation 07/13/21 Recent COVID-19 infection, continues to test positive Metastatic Lung CA, status post chemotherapy, currently on radiation. Chest CTA reporting progression, skeletal. Chronic CHF with mildly reduced systolic function History of nonischemic cardiomyopathy with EF of 35% Acute hypoxic respiratory failure secondary to the above Diabetes mellitus type II Moderate to severe mitral regurgitation Moderate tricuspid regurgitation Hypertension Former nicotine dependence COPD Hospital course:This is a 75-year-old female with past medical history of recent COVID-19 07/24 ( pathology ?),recent surgical repair and intramedullary nail fixation 07/13/21 related to displaced comminuted fracture distal diaphysis right femur, status post fall, metastatic lung cancer, paroxysmal atrial fibrillation on Eliquis, former nicotine dependence, diabetes mellitus II, hypertension and m ultiple other medical issues transported to the ER via EMS with complaints of sharp chest pain radiating to the back,palpitations accompanied by shortness of breath. EMS reports heart rates ranging from 100-170. O2 sat of 91% on room air on admission. Congested, reporting occasional for Dr. cough with yellow phlegm. Chest x-ray reporting volume loss in the right hemothorax, no pleural effusion or pneumothorax ,possible superimposed pneumonia. Afebrile, T-max 99.2, WBC 11.3. Hemoglobin 11, platelets 238, INR 1.2, d-dimer 8.52.Chest CTA no definite pulmonary embolus,S anterior left perihilar and left upper lobe mass, enlarging right paratracheal nodes measuring up to 2.5 cm, right midlung pulmonary nodule stable to slightly larger, new lytic osseous disease possible of the T2 spinous process, new small right pleural effusion, progressive worsening and enlarging consolidation in the posterior right perihilar region now with a masslike configuration measuring up to 6.4 x 6.2 cm, new volume loss and consolidation likely pneumonia right middle lobe additional patchy groundglass infiltrates throughout the right upper lobe and portions of the right lower lobe. Moderate degenerative disc disease mid to lower thoracic spine, pneumonic in appearance to the T2 spinous process. Sodium 132 potassium 3.6 bicarb 25, BUN 11, creatinine 0.62. Blood sugars controlled, lactic acid 2, magnesium 1.6, alk phos 153, troponin negative 1, proBNP 916. Coronavirus detected. EKG reporting atrial fibrillation with RVR, heart rates in the 150s. 08/15/2021 maintained on amiodarone , beta jalen ,telemetry sinus rhythm . Anticoagulated on eliquis. Congested, occasional productive cough with yellow sputum. Continues on empiric antibiotics for suspected postobstructive pneumonia.NPO, supraclavicular lymph node biopsy scheduled for today.Denies chest pain, palpitations. Maintaining O2 sats in the 90s on 3 L nasal cannula. Afebrile. 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 Oseguera outpatient to further determine treatment. Maintained on Levaquin ,clindamycin, nebulized bronchodilators and 3 L nasal cannula O2 to maintain O2 sats in the 90s. Anticoagulated on oral course eliquis. Antiarrhythmics further adjusted to oral as per cardiology.Patient denied any complaints of chest pain or increased shortness of breath. No nausea vomiting abdominal pain or diarrhea. Denies any headache or dizziness or lightheadedness. Cleared by both cardiology and pulmonary for discharge. Patient will require 3 L nasal cannula O2 and nebulized bronchodilators at discharge. Patient will be discharged home today in a stable condition with guarded prognosis. The impression and plan of care has been dictated as directed. : I performed a history and examination of this patient, discussed the same with the dictator. I agree with the dictator's note ,documented as a scribe. Any additional findings or plans will be noted. Patient Condition at Discharge: Stable Plan - Discharge Summary Discharge Rx Participant: No New Discharge Prescriptions: New Ipratropium-Albuterol Nebulize [Duoneb 0.5 mg-3 mg/3 ml Soln] 3 ml INHALATION RT-QID #120 ml Metoprolol Tartrate [Lopressor] 50 mg PO TID #90 tab amLODIPine [Norvasc] 5 mg PO DAILY #30 tab predniSONE 10 mg PO DIRECTED #30 tab lisinopriL [Zestril] 20 mg PO BID #60 tab Levofloxacin [Levaquin] 500 mg PO DAILY 5 Days #5 tab Continue Fenofibrate 160 mg PO DAILY metFORMIN HCL [Glucophage] 500 mg PO PC-SUPPER Simvastatin [Zocor] 20 mg PO HS Apixaban [Eliquis] 5 mg PO BID 30 Days #60 tab Cholecalciferol [Vitamin D3 (125 Mcg = 5000 Iu)] 125 mcg PO DAILY HYDROcodone/APAP 7.5-325MG [[place] 7.5-325] 1 tab PO Q4-6H PRN PRN Reason: Pain Furosemide [Lasix] 20 mg PO DAILY Spironolactone 12.5 mg PO DAILY Changed Amiodarone [Cordarone] 200 mg PO BID #0 Discontinued Metoprolol Tartrate [Lopressor] 37.5 mg PO TID lisinopriL [Zestril] 20 mg PO HS Discharge Medication List Fenofibrate 160 mg PO DAILY 06/30/19 [History] metFORMIN HCL [Glucophage] 500 mg PO PC-SUPPER 06/30/19 [History] Simvastatin [Zocor] 20 mg PO HS 07/13/19 [History] Apixaban [Eliquis] 5 mg PO BID 30 Days #60 tab 05/29/20 [Rx] Cholecalciferol [Vitamin D3 (125 Mcg = 5000 Iu)] 125 mcg PO DAILY 07/12/21 [History] Furosemide [Lasix] 20 mg PO DAILY 07/12/21 [History] HYDROcodone/APAP 7.5-325MG [[place] 7.5-325] 1 tab PO Q4-6H PRN 07/12/21 [History] Spironolactone 12.5 mg PO DAILY 07/12/21 [History] Amiodarone [Cordarone] 200 mg PO BID #0 08/20/21 [Rx] Ipratropium-Albuterol Nebulize [Duoneb 0.5 mg-3 mg/3 ml Soln] 3 ml INHALATION RT-QID #120 ml 08/20/21 [Rx] Levofloxacin [Levaquin] 500 mg PO DAILY 5 Days #5 tab 08/20/21 [Rx] Metoprolol Tartrate [Lopressor] 50 mg PO TID #90 tab 08/20/21 [Rx] amLODIPine [Norvasc] 5 mg PO DAILY #30 tab 08/20/21 [Rx] lisinopriL [Zestril] 20 mg PO BID #60 tab 08/20/21 [Rx] predniSONE 10 mg PO DIRECTED #30 tab 08/20/21 [Rx] Follow up Appointment(s)/Referral(s): Elias Dee MD [STAFF PHYSICIAN] - 2 Weeks Francisco Ramirez DO [Primary Care Provider] - 3 Days [facility], [NON-STAFF] - David Oliva MD [STAFF PHYSICIAN] - 09/13/21 11:00 am Joanan Gil MD [STAFF PHYSICIAN] - 08/20/21 10:15 am Activity/Diet/Wound Care/Special Instructions: O2 Sat on RA: Patient requires home oxygen and a nebulizer at discharge to manage lung cancer/COVID
[2021-08-20] MEDS: metFORMIN 500 MG TAB PO SCH (17:00)
[2021-08-21] MEDS ORDERED: LEVOFLOXACIN 750 MG TAB PO SCH (12:00)
== END 2021-08-20 18:09 | disposition home health service (06) | DRG 264 ==
LOC: EC 08:46 → 3SCARD 12:26
PROVIDERS: ADMIT Family Medicine; ATTEND Family Medicine
PROC: DP0C0ZZ Beam Radiation of Other Bone using Photons <1 MeV (ICD-10-PCS; 2021-08-13)
PROC: 07B13ZX Excision of Right Neck Lymphatic, Percutaneous Approach, Diagnostic (ICD-10-PCS; principal; 2021-08-15)
DX: I48.0 Paroxysmal atrial fibrillation (principal); J18.8 Other pneumonia, unspecified organism; J96.01 Acute respiratory failure with hypoxia; U07.1 COVID-19; C77.9 Secondary and unspecified malignant neoplasm of lymph node, unspecified; C79.51 Secondary malignant neoplasm of bone; C34.31 Malignant neoplasm of lower lobe, right bronchus or lung; C79.89 Secondary malignant neoplasm of other specified sites; I50.22 Chronic systolic (congestive) heart failure; J44.0 Chronic obstructive pulmonary disease with (acute) lower respiratory infection; J44.1 Chronic obstructive pulmonary disease with (acute) exacerbation; J94.2 Hemothorax; C34.92 Malignant neoplasm of unspecified part of left bronchus or lung; I42.8 Other cardiomyopathies; Z87.891 Personal history of nicotine dependence; Z79.01 Long term (current) use of anticoagulants; E11.9 Type 2 diabetes mellitus without complications; E78.5 Hyperlipidemia, unspecified; I08.1 Rheumatic disorders of both mitral and tricuspid valves; I11.0 Hypertensive heart disease with heart failure; S72.91XD Unspecified fracture of right femur, subsequent encounter for closed fracture with routine healing; Z79.84 Long term (current) use of oral hypoglycemic drugs; Z79.899 Other long term (current) drug therapy; Z80.0 Family history of malignant neoplasm of digestive organs; Z80.8 Family history of malignant neoplasm of other organs or systems; Z90.710 Acquired absence of both cervix and uterus; Z92.21 Personal history of antineoplastic chemotherapy; Z98.42 Cataract extraction status, left eye; Z98.41 Cataract extraction status, right eye; Z96.1 Presence of intraocular lens; Z95.0 Presence of cardiac pacemaker; M51.34 Other intervertebral disc degeneration, thoracic region; Z98.890 Other specified postprocedural states; Z88.1 Allergy status to other antibiotic agents; Z88.5 Allergy status to narcotic agent; Z88.2 Allergy status to sulfonamides; Z86.16 Personal history of COVID-19; Z91.81 History of falling
CPT/HCPCS: 36415; 38505; 71045; 71046; 71275; 76942; 77336; 77387; 77412; 80048; 80053; 83605; 83735; 83880; 84145; 84484; 85025; 85379; 85610; 85730; 87635; 88305; 88341; 88342; 93005; 94640; 94760; 96365; 96366; 96367; 99291